=== PATIENT | female | born 1960 | race Caucasian/White ===

== ENCOUNTER 2020-08-15 09:19 | Inpatient (IN) ==
[2020-08-15] MEDS ORDERED: DEXTROSE 50% 50 ML SYRINGE IV ONE ×2 (09:52→10:07)
[2020-08-15] MEDS ORDERED: GLUCAGON FOR INJ 1 MG VIAL ONE (10:06)
[2020-08-15] MEDS ORDERED: GLUCAGON FOR INJ 1 MG VIAL SQ STA (10:07)
--- NOTE | 2020-08-15 10:10 | Emergency Department Note ---
History of Present Illness General Chief complaint: Hypoglycemia Stated complaint: AMS, HYPOGLYCEMIA, COVID + Time Seen by Provider: 08/15/20 09:54 Source: patient and RN notes reviewed Mode of arrival: EMS Limitations: altered mental status History of Present Illness Provider complaint: Hyperglycemia Onset (ago): hour(s) less than 1 Quality: + other (Blood sugar 40) Relieved By: + other (Glucose) Associated symptoms: + other (Back pain); no chest pain, no cough, no fever/chills, no headaches, no nausea/vomiting and no shortness of breath This is a 60-year-old female who presents with altered mental status from the rehabilitation hospital. History is very limited due to the patient's altered mental status. I did obtain history from the charge nurse as well as the nurse caring for her who spoke to EMS. Apparently the patient is at the rehab hospital because she suffered a stroke last month. She also had sepsis from her wound in her right leg. The staff at [facility] told the charge nurse that the patient appeared to be more altered than usual and appeared to be dying. They called EMS who found her to have a glucose of 40. They did administer D10 IV and the patient appears to be waking up and becoming more alert. She does still appear confused and answers some questions. She states her back hurts but is unable to describe for her how long and wear. She does deny headache, chest pain, shortness of breath, abdominal pain, fever or vomiting. She does have a known diagnosis of COVID-19. Home Medications Medication Instructions Recorded Confirmed Type ascorbic acid (vitamin C) 500 mg 500 mg PO BID 08/03/20 08/15/20 History tablet aspirin 81 mg chewable tablet 81 mg PO DAILY 08/03/20 08/15/20 History atorvastatin 40 mg tablet 40 mg PO QPM 08/03/20 08/15/20 History bisacodyl 10 mg rectal suppository 10 mg NJ DAILY PRN 08/03/20 08/15/20 History chlorpromazine 25 mg tablet 100 mg PO Q6H PRN tab 08/03/20 08/15/20 History cholecalciferol (vitamin D3) 50 50 mcg PO DAILY 08/03/20 08/15/20 History mcg (2,000 unit) capsule docusate sodium 100 mg capsule 100 mg PO BID 08/03/20 08/15/20 History ferrous fumarate 325 mg (106 mg 325 mg PO BID 08/03/20 08/15/20 History iron) tablet fluticasone fur. 200 mcg-umeclid 1 inh INHALATION DAILY 08/03/20 08/15/20 History 62.5 mcg-vilant 25 mcg inhalat.powder furosemide 40 mg tablet 40 mg PO BID 08/03/20 08/15/20 History glucagon (human recombinant) 1 1 mg SUBCUT Q20M PRN 08/03/20 08/15/20 History mg/mL solution for injection insulin aspart U-100 100 unit/mL 15 unit SUBCUT DAILY ml 08/03/20 08/15/20 History subcutaneous cartridge insulin aspart U-100 100 unit/mL 20 unit SUBCUT BID 08/03/20 08/15/20 History subcutaneous cartridge ipratropium 20 mcg-albuterol 100 1 puff INHALATION QID 08/03/20 08/15/20 History mcg/actuation mist for inhalation lidocaine 5 % topical patch 1 patch TOPICAL DAILY 08/03/20 08/15/20 History magnesium hydroxide 400 mg/5 mL 5 ml PO DAILY PRN 08/03/20 08/15/20 History oral suspension melatonin 3 mg capsule 3 mg PO HS PRN 08/03/20 08/15/20 History metoprolol succinate 25 mg 12.5 mg PO Q12H tab 08/03/20 08/15/20 History tablet,extended release 24 hr multivitamin 1 tab PO DAILY 08/03/20 08/15/20 History nicotine 7 mg/24 hr daily 1 patch TRANSDERMAL Q24H 08/03/20 08/15/20 History transdermal patch oxycodone 5 mg tablet 5 mg PO Q4H PRN 08/03/20 08/15/20 History polyethylene glycol 3350 17 17 g PO DAILY 08/03/20 08/15/20 History gram/dose oral powder sodium bicarbonate 650 mg tablet 650 mg PO BID 08/03/20 08/15/20 History tizanidine 2 mg capsule 2 mg PO Q8H PRN 08/03/20 08/15/20 History warfarin 3 mg tablet 3 mg PO DAILY 08/03/20 08/15/20 History zinc sulfate 220 mg PO DAILY 08/03/20 08/15/20 History ziprasidone HCl 20 mg capsule 20 mg PO BID 08/03/20 08/15/20 History Allergies Allergy/AdvReac Type Severity Reaction Status Date / Time No Known Allergies Allergy Verified 08/15/20 10:22 Past Med/Surg History Medical History (Updated 08/15/20 @ 15:50 by Jason Lucero MD) Amputation of left great toe Atrial fibrillation and flutter Bipolar disorder delivery delivered CKD (chronic kidney disease), stage III CVA (cerebral vascular accident) Heart failure IDDM (insulin dependent diabetes mellitus) Insomnia Mitral valve regurgitation Pulmonary hypertension Stroke Surgical History Hx of right BKA Social History Smoking Status: Current every day smoker Tobacco Type: Cigarettes packs per day: 2; Years Smoked: 40; Second Hand Exposure: No; Hx Alcohol Use: No Hx Substance Use: Yes (coke and crack) Non-Prescribed Medications: Crack / Cocaine Last Used Substance Other:: 17 years ago Preferred Language: Kazakh Beliefs That Will Affect Care: None marital status: Single Current Living Situation: Alone current occupational status: unemployed and disabled How many Children do You have: 2 Feels Safe at Home: Yes caffeine: Yes Dental Care, Regularly: No Review of Systems See HPI for pertinent positives & negatives. Unobtainable due to cognitive status Physical Exam Vital Signs Vital Signs - 24 hr 08/15/20 09:27 08/15/20 09:28 08/15/20 09:30 Temperature Temperature Source Pulse Rate 90 0 L 0 L Pulse Rate [Apical] Pulse Rate from SpO2 Sensor 105 H 104 H 103 H Respiratory Rate 22 17 19 Respiratory Effort / Characteristics Blood Pressure 165/131 H 171/124 H Blood Pressure [Left Arm] Blood Pressure Mean 155 138 Blood Pressure Mean [Left Arm] Pulse Oximetry 100 100 Oxygen Delivery Method Oxygen Flow Rate Sepsis Recent Fever Within 48 Hours Sepsis New/Unexplained Change in Mental Status Sepsis Action Taken by Nursing 08/15/20 09:31 08/15/20 09:40 08/15/20 09:50 Temperature Temperature Source Pulse Rate 0 L 0 L 0 L Pulse Rate [Apical] Pulse Rate from SpO2 Sensor 103 H 101 H 102 H Respiratory Rate 18 17 20 Respiratory Effort / Characteristics Blood Pressure Blood Pressure [Left Arm] Blood Pressure Mean Blood Pressure Mean [Left Arm] Pulse Oximetry 100 100 100 Oxygen Delivery Method Oxygen Flow Rate Sepsis Recent Fever Within 48 Hours Sepsis New/Unexplained Change in Mental Status Sepsis Action Taken by Nursing 08/15/20 10:00 08/15/20 10:01 08/15/20 10:10 Temperature Temperature Source Pulse Rate 0 L 0 L 0 L Pulse Rate [Apical] Pulse Rate from SpO2 Sensor 100 H 100 H 97 H Respiratory Rate 20 21 25 H Respiratory Effort / Characteristics Blood Pressure 159/114 H Blood Pressure [Left Arm] Blood Pressure Mean 134 Blood Pressure Mean [Left Arm] Pulse Oximetry 100 100 100 Oxygen Delivery Method Oxygen Flow Rate Sepsis Recent Fever Within 48 Hours Sepsis New/Unexplained Change in Mental Status Sepsis Action Taken by Nursing 08/15/20 10:15 08/15/20 10:20 08/15/20 10:26 Temperature 36.7 C Temperature Source Oral Pulse Rate 99 H 0 L Pulse Rate [Apical] Pulse Rate from SpO2 Sensor 96 H Respiratory Rate 22 14 Respiratory Effort / Characteristics Short of Breath Blood Pressure 159/114 H Blood Pressure [Left Arm] Blood Pressure Mean 129 Blood Pressure Mean [Left Arm] Pulse Oximetry 92 99 Oxygen Delivery Method Room Air Oxygen Flow Rate Sepsis Recent Fever Within 48 Hours No Sepsis New/Unexplained Change in Mental Status N/A Sepsis Action Taken by Nursing No Action Required 08/15/20 10:30 08/15/20 10:40 08/15/20 10:50 Temperature Temperature Source Pulse Rate 0 L 0 L 0 L Pulse Rate [Apical] 94 H Pulse Rate from SpO2 Sensor 95 H 95 H 94 H Respiratory Rate 14 13 13 Respiratory Effort / Characteristics Blood Pressure 176/121 H Blood Pressure [Left Arm] 176/121 H Blood Pressure Mean 131 Blood Pressure Mean [Left Arm] 139 Pulse Oximetry 99 100 100 Oxygen Delivery Method Nasal Cannula Oxygen Flow Rate 4 Sepsis Recent Fever Within 48 Hours Sepsis New/Unexplained Change in Mental Status Sepsis Action Taken by Nursing 08/15/20 10:51 08/15/20 11:00 08/15/20 11:01 Temperature Temperature Source Pulse Rate 0 L 0 L 0 L Pulse Rate [Apical] Pulse Rate from SpO2 Sensor 94 H 94 H 94 H Respiratory Rate 17 17 16 Respiratory Effort / Characteristics Blood Pressure 173/114 H Blood Pressure [Left Arm] Blood Pressure Mean 119 Blood Pressure Mean [Left Arm] Pulse Oximetry 100 100 100 Oxygen Delivery Method Oxygen Flow Rate Sepsis Recent Fever Within 48 Hours Sepsis New/Unexplained Change in Mental Status Sepsis Action Taken by Nursing 08/15/20 11:10 08/15/20 11:20 08/15/20 11:30 Temperature Temperature Source Pulse Rate 0 L 0 L 0 L Pulse Rate [Apical] Pulse Rate from SpO2 Sensor 95 H 95 H 95 H Respiratory Rate 16 17 21 Respiratory Effort / Characteristics Blood Pressure 188/119 H Blood Pressure [Left Arm] Blood Pressure Mean 130 Blood Pressure Mean [Left Arm] Pulse Oximetry 100 100 100 Oxygen Delivery Method Oxygen Flow Rate Sepsis Recent Fever Within 48 Hours Sepsis New/Unexplained Change in Mental Status Sepsis Action Taken by Nursing 08/15/20 11:31 08/15/20 11:40 08/15/20 11:50 Temperature Temperature Source Pulse Rate 0 L 0 L 0 L Pulse Rate [Apical] Pulse Rate from SpO2 Sensor 96 H 97 H 101 H Respiratory Rate 18 20 13 Respiratory Effort / Characteristics Blood Pressure Blood Pressure [Left Arm] Blood Pressure Mean Blood Pressure Mean [Left Arm] Pulse Oximetry 100 100 96 Oxygen Delivery Method Oxygen Flow Rate Sepsis Recent Fever Within 48 Hours Sepsis New/Unexplained Change in Mental Status Sepsis Action Taken by Nursing 08/15/20 12:00 08/15/20 12:01 08/15/20 12:10 Temperature Temperature Source Pulse Rate Pulse Rate [Apical] Pulse Rate from SpO2 Sensor 105 H 106 H 102 H Respiratory Rate Respiratory Effort / Characteristics Blood Pressure 190/134 H Blood Pressure [Left Arm] Blood Pressure Mean 161 Blood Pressure Mean [Left Arm] Pulse Oximetry 98 98 98 Oxygen Delivery Method Oxygen Flow Rate Sepsis Recent Fever Within 48 Hours Sepsis New/Unexplained Change in Mental Status Sepsis Action Taken by Nursing 08/15/20 12:20 08/15/20 12:30 08/15/20 12:31 Temperature Temperature Source Pulse Rate 0 L 0 L 0 L Pulse Rate [Apical] Pulse Rate from SpO2 Sensor 104 H 100 H 100 H Respiratory Rate Respiratory Effort / Characteristics Blood Pressure 166/120 H Blood Pressure [Left Arm] Blood Pressure Mean 133 Blood Pressure Mean [Left Arm] Pulse Oximetry 92 90 90 Oxygen Delivery Method Oxygen Flow Rate Sepsis Recent Fever Within 48 Hours Sepsis New/Unexplained Change in Mental Status Sepsis Action Taken by Nursing 08/15/20 12:40 08/15/20 12:50 08/15/20 13:00 Temperature Temperature Source Pulse Rate 87 93 H 0 L Pulse Rate [Apical] Pulse Rate from SpO2 Sensor 97 H 93 H 92 H Respiratory Rate 15 16 Respiratory Effort / Characteristics Blood Pressure 175/124 H Blood Pressure [Left Arm] Blood Pressure Mean 129 Blood Pressure Mean [Left Arm] Pulse Oximetry 88 L 97 99 Oxygen Delivery Method Room Air Nasal Cannula Oxygen Flow Rate 4 Sepsis Recent Fever Within 48 Hours Sepsis New/Unexplained Change in Mental Status Sepsis Action Taken by Nursing 08/15/20 13:01 08/15/20 13:10 08/15/20 13:20 Temperature Temperature Source Pulse Rate 0 L 0 L 0 L Pulse Rate [Apical] Pulse Rate from SpO2 Sensor 92 H 92 H 92 H Respiratory Rate 14 14 14 Respiratory Effort / Characteristics Blood Pressure Blood Pressure [Left Arm] Blood Pressure Mean Blood Pressure Mean [Left Arm] Pulse Oximetry 98 98 100 Oxygen Delivery Method Oxygen Flow Rate Sepsis Recent Fever Within 48 Hours Sepsis New/Unexplained Change in Mental Status Sepsis Action Taken by Nursing 08/15/20 13:30 08/15/20 13:31 08/15/20 13:40 Temperature Temperature Source Pulse Rate 0 L 0 L 66 Pulse Rate [Apical] Pulse Rate from SpO2 Sensor 92 H 92 H 66 Respiratory Rate 15 17 14 Respiratory Effort / Characteristics Blood Pressure 165/126 H Blood Pressure [Left Arm] Blood Pressure Mean 139 Blood Pressure Mean [Left Arm] Pulse Oximetry 99 99 99 Oxygen Delivery Method Oxygen Flow Rate Sepsis Recent Fever Within 48 Hours Sepsis New/Unexplained Change in Mental Status Sepsis Action Taken by Nursing 08/15/20 13:50 08/15/20 14:00 08/15/20 14:01 Temperature Temperature Source Pulse Rate 69 68 68 Pulse Rate [Apical] Pulse Rate from SpO2 Sensor 69 69 68 Respiratory Rate 18 14 13 Respiratory Effort / Characteristics Blood Pressure 178/110 H Blood Pressure [Left Arm] Blood Pressure Mean 128 Blood Pressure Mean [Left Arm] Pulse Oximetry 100 100 100 Oxygen Delivery Method Oxygen Flow Rate Sepsis Recent Fever Within 48 Hours Sepsis New/Unexplained Change in Mental Status Sepsis Action Taken by Nursing 08/15/20 14:10 08/15/20 14:20 Temperature Temperature Source Pulse Rate 69 Pulse Rate [Apical] Pulse Rate from SpO2 Sensor 69 70 Respiratory Rate 13 17 Respiratory Effort / Characteristics Blood Pressure Blood Pressure [Left Arm] Blood Pressure Mean Blood Pressure Mean [Left Arm] Pulse Oximetry 100 100 Oxygen Delivery Method Oxygen Flow Rate Sepsis Recent Fever Within 48 Hours Sepsis New/Unexplained Change in Mental Status Sepsis Action Taken by Nursing The physical exam is limited due to the patient's condition. Constitutional: Vital signs reviewed. Eyes: Pupils are equal round reactive to light. Conjunctiva are noninjected. HENT: Normocephalic atraumatic. Respiratory: Clear to auscultation bilaterally. Breath sounds are equal bilaterally. Cardiovascular: Regular rate and rhythm. No murmurs, rubs or gallops. GI: Soft, nondistended and nontender. Bowel sounds are present. Musculoskeletal: BKA right leg without increased warmth or erythema. No edema. There is a pressure ulcer laterally. Integumentary: No cyanosis. Neurological: The patient is somnolent but answers simple questions. Psychiatric: Unable to assess. Course Administered Medications Vancomycin HCl 1,750 mg/ (Sodium Chloride) 535 mls @ 200 mls/hr IV NOW ONE Stop: 08/15/20 17:10 Last Admin: 08/15/20 15:14 Dose: 200 mls/hr Documented by: [id number] Discontinued Medications Dexamethasone (Dexamethasone Sod Inj 10 Mg/Ml Vial) 6 mg IV NOW ONE Stop: 08/15/20 12:54 Last Admin: 08/15/20 14:15 Dose: 6 mg Documented by: [id number] Dextrose (Dextrose 50% 50 Ml Syringe) Confirm Administered Dose 50 ml IV .STK- MED ONE Stop: 08/15/20 09:53 Last Admin: 08/15/20 10:39 Dose: 25 ml Documented by: [id number] Dextrose (Dextrose 50% 50 Ml Syringe) 50 ml IV NOW ONE Stop: 08/15/20 10:08 Last Admin: 08/15/20 12:44 Dose: Not Given Documented by: [id number] Glucagon (Glucagon For Inj 1 Mg Vial) Confirm Administered Dose 1 mg .ROUTE .STK-MED ONE Stop: 08/15/20 10:07 Last Admin: 08/15/20 13:17 Dose: Not Given Documented by: [id number] Glucagon (Glucagon For Inj 1 Mg Vial) 1 mg SQ NOW STA Stop: 08/15/20 10:08 Last Admin: 08/15/20 13:17 Dose: Not Given Documented by: [id number] Cefepime HCl (Maxipime) 2,000 mg in 20 mls @ 5 mls/min IV NOW STA; Protocol Stop: 08/15/20 13:11 Last Admin: 08/15/20 14:18 Dose: 5 mls/min Documented by: [id number] Critical Care Time Critical Care Time: Yes Total Critical Care Time: 45 I have personally spent approximately 45 minutes of critical care time in the direct management of this patient. This includes bedside care, interpretation of diagnostic studies, and testing, discussion with consultants, patient, and family members, and other required patient management activities. These minutes are in excess of all separately billable procedures. Medical Decision Making Differential Diagnosis Metabolic derangement, hypoglycemia, infection, pneumonia, UTI Medical Records Attestation: I reviewed the patient's medical records. I did perform a limited focused review of portions of the patient's old chart on the electronic medical record. The patient was admitted to [facility] for a left frontal stroke and sepsis secondary to infection of the right BKA stump. She was seen by Dr. Biggs of the wound care clinic August 11 for her stage II ulcer on her stump. Home Medications Current Medication List: was personally reviewed by me Laboratory Data Attestation: I reviewed the patient's lab results. Result diagrams: 08/15/20 09:47 08/15/20 09:47 Lab Results 08/15/20 08/15/20 08/15/20 Range/Units 09:40 09:47 09:47 WBC 9.10 (4.8-10.8) K/uL RBC 3.85 L (4.2-5.4) M/uL Hgb 9.4 L (12.0-16.0) g/dL Hct 30.0 L (37-47) % MCV 77.9 L (80-100) fL MCH 24.4 L (25-34) pg MCHC 31.3 L (32-36) g/dL RDW Std Deviation 52.6 H (36.4-46.3) fL RDW Coeff of Esa 19.1 H (11.5-14.5) % Plt Count 311 (130-400) K/uL MPV 8.8 (7.4-10.4) fL Immature Gran % (Auto) 0.4 % Neut % (Auto) 90.1 % Lymph % (Auto) 4.1 % Hamilton % (Auto) 5.1 % Eos % (Auto) 0.2 % Baso % (Auto) 0.1 % Neut # (Auto) 8.20 H (1.4-6.5) K/uL Lymph # (Auto) 0.37 L (1.2-3.4) K/uL Hamilton # (Auto) 0.46 (0.11-0.59) K/uL Eos # (Auto) 0.02 (0-0.5) K/uL Baso # (Auto) 0.01 (0-0.2) K/uL Immature Gran # (Auto) 0.04 H (0.00-0.02) K/uL Absolute Nucleated RBC 0.02 H (0-0) K/uL Nucleated RBC % (auto) 0.2 % PT (9.0-12.0) Seconds INR (0.9-1.1) APTT (21.0-31.0) Seconds PTT Ratio D-Dimer (0-500) ug/L FEU Sodium 121 L (136-145) mmol/L Potassium 3.7 (3.5-5.1) mmol/L Chloride 91 L (98-107) mmol/L Carbon Dioxide 23 (21-32) mmol/L Anion Gap 7.0 (3-11) BUN 72 H (7-18) mg/dl Creatinine 2.34 H (0.6-1.2) mg/dl Est Cr Clr Drug Dosing Not Reportable Est GFR ( Amer) 25.7 Est GFR (Non-Af Amer) 22.2 BUN/Creatinine Ratio 30.9 H (10-20) Glucose 48 L* (70-99) mg/dl POC Glucose (70-99) mg/dl Lactate (0.4-2.0) mmol/L Calcium 7.8 L (8.5-10.1) mg/dl Magnesium 3.0 H (1.8-2.4) mg/dl Iron (35-150) mcg/dl Transferrin (200-360) mg/dl Transferrin % Sat (15-50) % Ferritin (8-388) ng/ml Total Bilirubin 0.4 (0.2-1) mg/dl AST 38 H (15-37) U/L ALT 44 (12-78) U/L Alkaline Phosphatase 210 H (45-117) U/L Lactate Dehydrogenase (84-246) U/L Total Creatine Kinase (26-192) U/L Troponin I < 0.015 (0-0.045) ng/ml C-Reactive Protein (0-0.29) mg/dl Total Protein 8.3 H (6.4-8.2) gm/dl Albumin 2.8 L (3.4-5.0) gm/dl Globulin 5.5 H (2.5-4.0) gm/dl Albumin/Globulin Ratio 0.5 L (0.9-2) Procalcitonin (0-0.5) ng/ml Urine Color Yellow Urine Appearance Cloudy A (Clear) Urine pH 6.5 (4.5-7.5) Ur Specific Limestone 1.013 (1.000-1.030) Urine Protein 3+ H (Negative) Urine Glucose (UA) Negative (Negative) Urine Ketones Negative (Negative) Urine Blood 2+ H (Negative) Urine Nitrite Negative (Negative) Urine Bilirubin Negative (Negative) Urine Urobilinogen Negative (Negative) Ur Leukocyte Esterase 2+ H (Negative) Urine WBC (Auto) >30 H (0-5) /hpf Urine RBC (Auto) 10-30 H (0-4) /hpf U Hyaline Cast (Auto) 1-5 (0-5) /lpf U Epithel Cells (Auto) 0-5 (0-5) /lpf Urine Bacteria (Auto) 2+ H (Negative) COVID-19 Eval Order Blood Type Antibody Screen 08/15/20 08/15/20 08/15/20 Range/Units 09:47 09:47 09:47 WBC (4.8-10.8) K/uL RBC (4.2-5.4) M/uL Hgb (12.0-16.0) g/dL Hct (37-47) % MCV (80-100) fL MCH (25-34) pg MCHC (32-36) g/dL RDW Std Deviation (36.4-46.3) fL RDW Coeff of Esa (11.5-14.5) % Plt Count (130-400) K/uL MPV (7.4-10.4) fL Immature Gran % (Auto) % Neut % (Auto) % Lymph % (Auto) % Hamilton % (Auto) % Eos % (Auto) % Baso % (Auto) % Neut # (Auto) (1.4-6.5) K/uL Lymph # (Auto) (1.2-3.4) K/uL Hamilton # (Auto) (0.11-0.59) K/uL Eos # (Auto) (0-0.5) K/uL Baso # (Auto) (0-0.2) K/uL Immature Gran # (Auto) (0.00-0.02) K/uL Absolute Nucleated RBC (0-0) K/uL Nucleated RBC % (auto) % PT 31.0 H (9.0-12.0) Seconds INR 3.1 H (0.9-1.1) APTT 49.4 H* (21.0-31.0) Seconds PTT Ratio 1.8 D-Dimer 650 H* (0-500) ug/L FEU Sodium (136-145) mmol/L Potassium (3.5-5.1) mmol/L Chloride (98-107) mmol/L Carbon Dioxide (21-32) mmol/L Anion Gap (3-11) BUN (7-18) mg/dl Creatinine (0.6-1.2) mg/dl Est Cr Clr Drug Dosing Est GFR ( Amer) Est GFR (Non-Af Amer) BUN/Creatinine Ratio (10-20) Glucose (70-99) mg/dl POC Glucose (70-99) mg/dl Lactate 0.7 (0.4-2.0) mmol/L Calcium (8.5-10.1) mg/dl Magnesium (1.8-2.4) mg/dl Iron (35-150) mcg/dl Transferrin (200-360) mg/dl Transferrin % Sat (15-50) % Ferritin (8-388) ng/ml Total Bilirubin (0.2-1) mg/dl AST (15-37) U/L ALT (12-78) U/L Alkaline Phosphatase (45-117) U/L Lactate Dehydrogenase (84-246) U/L Total Creatine Kinase (26-192) U/L Troponin I (0-0.045) ng/ml C-Reactive Protein (0-0.29) mg/dl Total Protein (6.4-8.2) gm/dl Albumin (3.4-5.0) gm/dl Globulin (2.5-4.0) gm/dl Albumin/Globulin Ratio (0.9-2) Procalcitonin (0-0.5) ng/ml Urine Color Urine Appearance (Clear) Urine pH (4.5-7.5) Ur Specific Limestone (1.000-1.030) Urine Protein (Negative) Urine Glucose (UA) (Negative) Urine Ketones (Negative) Urine Blood (Negative) Urine Nitrite (Negative) Urine Bilirubin (Negative) Urine Urobilinogen (Negative) Ur Leukocyte Esterase (Negative) Urine WBC (Auto) (0-5) /hpf Urine RBC (Auto) (0-4) /hpf U Hyaline Cast (Auto) (0-5) /lpf U Epithel Cells (Auto) (0-5) /lpf Urine Bacteria (Auto) (Negative) COVID-19 Eval Order Blood Type Antibody Screen 08/15/20 08/15/20 08/15/20 Range/Units 09:47 09:47 09:47 WBC (4.8-10.8) K/uL RBC (4.2-5.4) M/uL Hgb (12.0-16.0) g/dL Hct (37-47) % MCV (80-100) fL MCH (25-34) pg MCHC (32-36) g/dL RDW Std Deviation (36.4-46.3) fL RDW Coeff of Esa (11.5-14.5) % Plt Count (130-400) K/uL MPV (7.4-10.4) fL Immature Gran % (Auto) % Neut % (Auto) % Lymph % (Auto) % Hamilton % (Auto) % Eos % (Auto) % Baso % (Auto) % Neut # (Auto) (1.4-6.5) K/uL Lymph # (Auto) (1.2-3.4) K/uL Hamilton # (Auto) (0.11-0.59) K/uL Eos # (Auto) (0-0.5) K/uL Baso # (Auto) (0-0.2) K/uL Immature Gran # (Auto) (0.00-0.02) K/uL Absolute Nucleated RBC (0-0) K/uL Nucleated RBC % (auto) % PT (9.0-12.0) Seconds INR (0.9-1.1) APTT (21.0-31.0) Seconds PTT Ratio D-Dimer (0-500) ug/L FEU Sodium (136-145) mmol/L Potassium (3.5-5.1) mmol/L Chloride (98-107) mmol/L Carbon Dioxide (21-32) mmol/L Anion Gap (3-11) BUN (7-18) mg/dl Creatinine (0.6-1.2) mg/dl Est Cr Clr Drug Dosing Est GFR ( Amer) Est GFR (Non-Af Amer) BUN/Creatinine Ratio (10-20) Glucose (70-99) mg/dl POC Glucose (70-99) mg/dl Lactate (0.4-2.0) mmol/L Calcium (8.5-10.1) mg/dl Magnesium (1.8-2.4) mg/dl Iron 18 L (35-150) mcg/dl Transferrin 328 (200-360) mg/dl Transferrin % Sat 4 L (15-50) % Ferritin 147.2 (8-388) ng/ml Total Bilirubin (0.2-1) mg/dl AST (15-37) U/L ALT (12-78) U/L Alkaline Phosphatase (45-117) U/L Lactate Dehydrogenase 315 H (84-246) U/L Total Creatine Kinase 95 (26-192) U/L Troponin I (0-0.045) ng/ml C-Reactive Protein 1.82 H (0-0.29) mg/dl Total Protein (6.4-8.2) gm/dl Albumin (3.4-5.0) gm/dl Globulin (2.5-4.0) gm/dl Albumin/Globulin Ratio (0.9-2) Procalcitonin 0.06 (0-0.5) ng/ml Urine Color Urine Appearance (Clear) Urine pH (4.5-7.5) Ur Specific Limestone (1.000-1.030) Urine Protein (Negative) Urine Glucose (UA) (Negative) Urine Ketones (Negative) Urine Blood (Negative) Urine Nitrite (Negative) Urine Bilirubin (Negative) Urine Urobilinogen (Negative) Ur Leukocyte Esterase (Negative) Urine WBC (Auto) (0-5) /hpf Urine RBC (Auto) (0-4) /hpf U Hyaline Cast (Auto) (0-5) /lpf U Epithel Cells (Auto) (0-5) /lpf Urine Bacteria (Auto) (Negative) COVID-19 Eval Order Blood Type Antibody Screen 08/15/20 08/15/20 08/15/20 Range/Units 09:50 10:07 12:36 WBC (4.8-10.8) K/uL RBC (4.2-5.4) M/uL Hgb (12.0-16.0) g/dL Hct (37-47) % MCV (80-100) fL MCH (25-34) pg MCHC (32-36) g/dL RDW Std Deviation (36.4-46.3) fL RDW Coeff of Esa (11.5-14.5) % Plt Count (130-400) K/uL MPV (7.4-10.4) fL Immature Gran % (Auto) % Neut % (Auto) % Lymph % (Auto) % Hamilton % (Auto) % Eos % (Auto) % Baso % (Auto) % Neut # (Auto) (1.4-6.5) K/uL Lymph # (Auto) (1.2-3.4) K/uL Hamilton # (Auto) (0.11-0.59) K/uL Eos # (Auto) (0-0.5) K/uL Baso # (Auto) (0-0.2) K/uL Immature Gran # (Auto) (0.00-0.02) K/uL Absolute Nucleated RBC (0-0) K/uL Nucleated RBC % (auto) % PT (9.0-12.0) Seconds INR (0.9-1.1) APTT (21.0-31.0) Seconds PTT Ratio D-Dimer (0-500) ug/L FEU Sodium (136-145) mmol/L Potassium (3.5-5.1) mmol/L Chloride (98-107) mmol/L Carbon Dioxide (21-32) mmol/L Anion Gap (3-11) BUN (7-18) mg/dl Creatinine (0.6-1.2) mg/dl Est Cr Clr Drug Dosing Est GFR ( Amer) Est GFR (Non-Af Amer) BUN/Creatinine Ratio (10-20) Glucose (70-99) mg/dl POC Glucose 65 L* 137 H 62 L* (70-99) mg/dl Lactate (0.4-2.0) mmol/L Calcium (8.5-10.1) mg/dl Magnesium (1.8-2.4) mg/dl Iron (35-150) mcg/dl Transferrin (200-360) mg/dl Transferrin % Sat (15-50) % Ferritin (8-388) ng/ml Total Bilirubin (0.2-1) mg/dl AST (15-37) U/L ALT (12-78) U/L Alkaline Phosphatase (45-117) U/L Lactate Dehydrogenase (84-246) U/L Total Creatine Kinase (26-192) U/L Troponin I (0-0.045) ng/ml C-Reactive Protein (0-0.29) mg/dl Total Protein (6.4-8.2) gm/dl Albumin (3.4-5.0) gm/dl Globulin (2.5-4.0) gm/dl Albumin/Globulin Ratio (0.9-2) Procalcitonin (0-0.5) ng/ml Urine Color Urine Appearance (Clear) Urine pH (4.5-7.5) Ur Specific Limestone (1.000-1.030) Urine Protein (Negative) Urine Glucose (UA) (Negative) Urine Ketones (Negative) Urine Blood (Negative) Urine Nitrite (Negative) Urine Bilirubin (Negative) Urine Urobilinogen (Negative) Ur Leukocyte Esterase (Negative) Urine WBC (Auto) (0-5) /hpf Urine RBC (Auto) (0-4) /hpf U Hyaline Cast (Auto) (0-5) /lpf U Epithel Cells (Auto) (0-5) /lpf Urine Bacteria (Auto) (Negative) COVID-19 Eval Order Blood Type Antibody Screen 08/15/20 08/15/20 08/15/20 Range/Units 12:38 13:49 14:21 WBC (4.8-10.8) K/uL RBC (4.2-5.4) M/uL Hgb (12.0-16.0) g/dL Hct (37-47) % MCV (80-100) fL MCH (25-34) pg MCHC (32-36) g/dL RDW Std Deviation (36.4-46.3) fL RDW Coeff of Esa (11.5-14.5) % Plt Count (130-400) K/uL MPV (7.4-10.4) fL Immature Gran % (Auto) % Neut % (Auto) % Lymph % (Auto) % Hamilton % (Auto) % Eos % (Auto) % Baso % (Auto) % Neut # (Auto) (1.4-6.5) K/uL Lymph # (Auto) (1.2-3.4) K/uL Hamilton # (Auto) (0.11-0.59) K/uL Eos # (Auto) (0-0.5) K/uL Baso # (Auto) (0-0.2) K/uL Immature Gran # (Auto) (0.00-0.02) K/uL Absolute Nucleated RBC (0-0) K/uL Nucleated RBC % (auto) % PT (9.0-12.0) Seconds INR (0.9-1.1) APTT (21.0-31.0) Seconds PTT Ratio D-Dimer (0-500) ug/L FEU Sodium (136-145) mmol/L Potassium (3.5-5.1) mmol/L Chloride (98-107) mmol/L Carbon Dioxide (21-32) mmol/L Anion Gap (3-11) BUN (7-18) mg/dl Creatinine (0.6-1.2) mg/dl Est Cr Clr Drug Dosing Est GFR ( Amer) Est GFR (Non-Af Amer) BUN/Creatinine Ratio (10-20) Glucose (70-99) mg/dl POC Glucose 76 100 H (70-99) mg/dl Lactate (0.4-2.0) mmol/L Calcium (8.5-10.1) mg/dl Magnesium (1.8-2.4) mg/dl Iron (35-150) mcg/dl Transferrin (200-360) mg/dl Transferrin % Sat (15-50) % Ferritin (8-388) ng/ml Total Bilirubin (0.2-1) mg/dl AST (15-37) U/L ALT (12-78) U/L Alkaline Phosphatase (45-117) U/L Lactate Dehydrogenase (84-246) U/L Total Creatine Kinase (26-192) U/L Troponin I (0-0.045) ng/ml C-Reactive Protein (0-0.29) mg/dl Total Protein (6.4-8.2) gm/dl Albumin (3.4-5.0) gm/dl Globulin (2.5-4.0) gm/dl Albumin/Globulin Ratio (0.9-2) Procalcitonin (0-0.5) ng/ml Urine Color Urine Appearance (Clear) Urine pH (4.5-7.5) Ur Specific Limestone (1.000-1.030) Urine Protein (Negative) Urine Glucose (UA) (Negative) Urine Ketones (Negative) Urine Blood (Negative) Urine Nitrite (Negative) Urine Bilirubin (Negative) Urine Urobilinogen (Negative) Ur Leukocyte Esterase (Negative) Urine WBC (Auto) (0-5) /hpf Urine RBC (Auto) (0-4) /hpf U Hyaline Cast (Auto) (0-5) /lpf U Epithel Cells (Auto) (0-5) /lpf Urine Bacteria (Auto) (Negative) COVID-19 Eval Order Blood Type B Positive Antibody Screen POSITIVE A 08/15/20 08/15/20 Range/Units 15:18 15:20 WBC (4.8-10.8) K/uL RBC (4.2-5.4) M/uL Hgb (12.0-16.0) g/dL Hct (37-47) % MCV (80-100) fL MCH (25-34) pg MCHC (32-36) g/dL RDW Std Deviation (36.4-46.3) fL RDW Coeff of Esa (11.5-14.5) % Plt Count (130-400) K/uL MPV (7.4-10.4) fL Immature Gran % (Auto) % Neut % (Auto) % Lymph % (Auto) % Hamilton % (Auto) % Eos % (Auto) % Baso % (Auto) % Neut # (Auto) (1.4-6.5) K/uL Lymph # (Auto) (1.2-3.4) K/uL Hamilton # (Auto) (0.11-0.59) K/uL Eos # (Auto) (0-0.5) K/uL Baso # (Auto) (0-0.2) K/uL Immature Gran # (Auto) (0.00-0.02) K/uL Absolute Nucleated RBC (0-0) K/uL Nucleated RBC % (auto) % PT (9.0-12.0) Seconds INR (0.9-1.1) APTT (21.0-31.0) Seconds PTT Ratio D-Dimer (0-500) ug/L FEU Sodium (136-145) mmol/L Potassium (3.5-5.1) mmol/L Chloride (98-107) mmol/L Carbon Dioxide (21-32) mmol/L Anion Gap (3-11) BUN (7-18) mg/dl Creatinine (0.6-1.2) mg/dl Est Cr Clr Drug Dosing Est GFR ( Amer) Est GFR (Non-Af Amer) BUN/Creatinine Ratio (10-20) Glucose (70-99) mg/dl POC Glucose 111 H (70-99) mg/dl Lactate (0.4-2.0) mmol/L Calcium (8.5-10.1) mg/dl Magnesium (1.8-2.4) mg/dl Iron (35-150) mcg/dl Transferrin (200-360) mg/dl Transferrin % Sat (15-50) % Ferritin (8-388) ng/ml Total Bilirubin (0.2-1) mg/dl AST (15-37) U/L ALT (12-78) U/L Alkaline Phosphatase (45-117) U/L Lactate Dehydrogenase (84-246) U/L Total Creatine Kinase (26-192) U/L Troponin I (0-0.045) ng/ml C-Reactive Protein (0-0.29) mg/dl Total Protein (6.4-8.2) gm/dl Albumin (3.4-5.0) gm/dl Globulin (2.5-4.0) gm/dl Albumin/Globulin Ratio (0.9-2) Procalcitonin (0-0.5) ng/ml Urine Color Urine Appearance (Clear) Urine pH (4.5-7.5) Ur Specific Limestone (1.000-1.030) Urine Protein (Negative) Urine Glucose (UA) (Negative) Urine Ketones (Negative) Urine Blood (Negative) Urine Nitrite (Negative) Urine Bilirubin (Negative) Urine Urobilinogen (Negative) Ur Leukocyte Esterase (Negative) Urine WBC (Auto) (0-5) /hpf Urine RBC (Auto) (0-4) /hpf U Hyaline Cast (Auto) (0-5) /lpf U Epithel Cells (Auto) (0-5) /lpf Urine Bacteria (Auto) (Negative) COVID-19 Eval Order [facility]FluRsv at [facility] Blood Type Antibody Screen Imaging Data Radiologist's Impression: XR chest 1V portable CLINICAL HISTORY: SEPSIS COMPARISON STUDY: No previous studies for comparison. FINDINGS: The heart is normal in size. There is interstitial thickening and bilateral pulmonary airspace opacities. A multifocal pneumonia is favored over pulmonary edema. Correlation with Covid 19 testing is recommended. There are no significant pleural effusions. IMPRESSION: Interstitial thickening and bilateral pulmonary airspace opacities. A multifocal pneumonia is favored over pulmonary edema. Clinical and radiographic follow-up is recommended. ACT 112: Negative or not required by law. Electronically signed by: Lowell Estrada M.D. 08/15/2020 11:37 AM Dictated: 08/15/20 1136 Transcribed: 08/15/20 1136 ECG Data Attestation: I personally reviewed and interpreted this ECG as follows: Indication: + altered mental status Rate (beats per minute): 99 Rhythm: + normal sinus ECG Intervals/blocks: + Prolonged QT ECG ST segments: no ST elevation ECG Findings: no PVCs MDM Narrative I did evaluate the patient as noted above. I did obtain history from the nurse given the patient's altered mental status. The patient had a blood sugar in the 40s at the rehab hospital. She was given D10 and her blood sugar came up to 65 here. We did give her additional D50 here. The nurse stated that the D50 IV seem to be leaking around the IV site and she was not sure if she got any of it. I therefore ordered glucagon subcu but the patient's repeat blood sugar was 137. The glucagon was not given. I did place an order for continuous cardiac monitoring. The monitor showed normal sinus rhythm at a rate of 99 bpm. I did order and personally review the patient's 12-lead EKG as described above. She has a prolonged QT but no acute ischemia. I did order and personally reviewed the images of the patient's chest x-ray as described above. I did order a urine analysis. She does appear to have a UTI. I did order and review the patient's blood work as noted in the electronic medical record. Her white blood cell count is not elevated. She does have a hemoglobin of 9.4. Platelet count is within normal limits. INR is 3.1. Patient is on Coumadin. Her sodium is 121. Her creatinine is 2.3. Troponin is negative. LFTs are unremarkable other than elevated alk phos. I did obtain labs through the [facility] system. Her last s odium was 129. Creatinine was 2.2. Initial lab glucose was 48 up to 137 after D50. She did eat here without any difficulty. Repeat blood sugar is 65. This is despite eating food here. She was given another half amp of D50. Check of her O2 sat on room air was 88. I did treat her with Decadron 6 mg IV. I did recommend hospitalization. I did discuss case with the hospitalist and case management director. Impression & Plan Hypoxemia, Hyponatremia, Pneumonia due to 2019 novel coronavirus, Acute alteration in mental status, Hypoglycemia, Anemia, Chronic kidney disease Discharge Plan Visit Data Chief Complaint: Hypoglycemia Stated Complaint: AMS, HYPOGLYCEMIA, COVID + ED Provider: Jason Lucero Discharge Problem: Hypoxemia, Hyponatremia, Pneumonia due to 2019 novel coronavirus, Acute alteration in mental status, Hypoglycemia, Anemia, Chronic kidney disease Patient Disposition: Being Evaluated by Hospitalist Forms Stand Alone Forms: My [facility] [employer] Prescriptions Prescriptions: No Action ipratropium-albuterol 20-100 mcg/actuation mist 1 puff inhalation QID RF: 0 ascorbic acid (vitamin C) 500 mg tablet 500 mg PO BID RF: 0 aspirin 81 mg tablet,chewable 81 mg PO DAILY RF: 0 atorvastatin 40 mg tablet 40 mg PO QPM RF: 0 bisacodyl 10 mg suppository 10 mg [place] DAILY PRN (Reason: Constipation) RF: 0 chlorpromazine 25 mg tablet 100 mg PO Q6H PRN (Reason: ) RF: 0 cholecalciferol (vitamin D3) 50 mcg (2,000 unit) capsule 50 mcg PO DAILY RF: 0 docusate sodium 100 mg capsule 100 mg PO BID RF: 0 ferrous fumarate 325 mg (106 mg iron) tablet 325 mg PO BID RF: 0 Trelegy Ellipta 200-62.5-25 mcg blister with device 1 inh inhalation DAILY RF: 0 furosemide 40 mg tablet 40 mg PO BID RF: 0 GlucaGen Diagnostic Kit 1 mg/mL recon soln 1 mg subcut Q20M PRN (Reason: ) RF: 0 insulin aspart U-100 100 unit/mL cartridge 15 unit subcut DAILY RF: 0 insulin aspart U-100 [Novolog PenFill U-100 Insulin] 100 unit/mL cartridge 20 unit subcut BID RF: 0 lidocaine 5 % adhesive patch,medicated 1 patch topical DAILY RF: 0 magnesium hydroxide [Milk of Magnesia] 400 mg/5 mL suspension 5 ml PO DAILY PRN (Reason: ) RF: 0 melatonin 3 mg capsule 3 mg PO HS PRN (Reason: ) RF: 0 metoprolol succinate 25 mg tablet extended release 24 hr 12.5 mg PO Q12H RF: 0 multivitamin Tablet 1 tab PO DAILY RF: 0 nicotine 7 mg/24 hr patch 24 hour 1 patch transdermal Q24H RF: 0 warfarin 3 mg tablet 3 mg PO DAILY RF: 0 oxycodone 5 mg tablet 5 mg PO Q4H PRN (Reason: Pain) RF: 0 polyethylene glycol 3350 [Miralax] 17 gram/dose powder 17 g PO DAILY RF: 0 sodium bicarbonate 650 mg tablet 650 mg PO BID RF: 0 tizanidine 2 mg capsule 2 mg PO Q8H PRN (Reason: ) RF: 0 zinc sulfate 220 (50) mg capsule 220 mg PO DAILY RF: 0 ziprasidone HCl 20 mg capsule 20 mg PO BID RF: 0 Referrals Referrals: [facility] [Primary Care Provider] - Discharge Problem: Anemia Qualifiers: Anemia type: unspecified type Qualified Code(s): D64.9 - Anemia, unspecified Chronic kidney disease Qualifiers: Chronic kidney disease stage: unspecified stage Qualified Code(s): N18.9 - Chr onic kidney disease, unspecified
[2020-08-15 10:18] LABS: Basophils # (auto) 0.01 K/uL (0-0.2); Basophils % (auto) 0.1 %; Eosinophils # (auto) 0.02 K/uL (0-0.5); Eosinophils % (auto) 0.2 %; Hemoglobin 9.4 g/dL (12.0-16.0); Immature Granulocytes # (auto) 0.04 K/uL (0.00-0.02); Immature Granulocytes % (auto) 0.4 %; Lymphocytes # (auto) 0.37 K/uL (1.2-3.4); Lymphocytes % (auto) 4.1 %; Mean Corpuscular Hemoglobin 24.4 pg (25-34); Mean Corpuscular Hgb Conc 31.3 g/dL (32-36); Mean Corpuscular Volume 77.9 fL (80-100); Mean Platelet Volume 8.8 fL (7.4-10.4); Monocytes # (auto) 0.46 K/uL (0.11-0.59); Monocytes % (auto) 5.1 %; Neutrophils % (auto) 90.1 %; Nucleated RBC # (auto) 0.02 K/uL (0-0); Nucleated RBC % (auto) 0.2 %; Platelet Count 311 K/uL (130-400); RDW Coefficient of Variation 19.1 % (11.5-14.5); RDW Standard Deviation 52.6 fL (36.4-46.3); Red Blood Count 3.85 M/uL (4.2-5.4)
[2020-08-15 10:24] LABS: Appearance Urine Cloudy (Clear); Bacteria Urine Automated 2+ (Negative); Bilirubin Urine Negative (Negative); Blood Urine 2+ (Negative); Color Urine Yellow; Epithelial Cell Urine Auto 0-5 /lpf (0-5); Glucose Urine UA Negative (Negative); Ketones Urine Negative (Negative); Leukocyte Esterase Urine 2+ (Negative); Nitrite Urine Negative (Negative); Protein Urine 3+ (Negative); Specific Gravity Urine 1.013 (1.000-1.030); Urobilinogen Urine Negative (Negative); WBC Urine Automated >30 /hpf (0-5); pH Urine 6.5 (4.5-7.5)
[2020-08-15 10:34] LABS: Alanine Aminotransferase 44 U/L (12-78); Albumin Globulin Ratio 0.5 (0.9-2); Albumin Level 2.8 gm/dl (3.4-5.0); Alkaline Phosphatase 210 U/L (45-117); Aspartate Aminotransferase 38 U/L (15-37); BUN Creatinine Ratio 30.9 (10-20); Bilirubin,Total 0.4 mg/dl (0.2-1); Blood Urea Nitrogen 72 mg/dl (7-18); Calcium 7.8 mg/dl (8.5-10.1); Carbon Dioxide 23 mmol/L (21-32); Chloride 91 mmol/L (98-107); Est GFR (African American) 25.7; Est GFR (Non-African American) 22.2; Globulin 5.5 gm/dl (2.5-4.0); Glucose 48 mg/dl (70-99); Potassium 3.7 mmol/L (3.5-5.1); Sodium 121 mmol/L (136-145); Total Protein 8.3 gm/dl (6.4-8.2); Troponin I < 0.015 ng/ml (0-0.045)
[2020-08-15 10:35] LABS: INR 3.1 (0.9-1.1); Partial Thromboplastin Ratio 1.8
[2020-08-15 10:36] LABS: Partial Thromboplastin Time 49.4 Seconds (21.0-31.0)
--- NOTE | 2020-08-15 11:38 | XRay Report ---
XR chest 1V portable CLINICAL HISTORY: SEPSIS COMPARISON STUDY: No previous studies for comparison. FINDINGS: The heart is normal in size. There is interstitial thickening and bilateral pulmonary airsp derrick opacities. A multifocal pneumonia is favored over pulmonary edema. Correlation with Covid 19 test ing is recommended. There are no significant pleural effusions. IMPRESSION: Interstitial thickening and bilateral pulmonary airspace opacities. A multifocal pneumoni a is favored over pulmonary edema. Clinical and radiographic follow-up is recommended. ACT 112: Negative or not required by law. Electronically signed by: Lowell Estrada M.D. 08/15/2020 11:37 AM
[2020-08-15] MEDS ORDERED: DEXAMETHASONE SOD INJ 10 MG/ML VIAL IV ONE (12:53)
[2020-08-15] MEDS ORDERED: CEFEPIME 2,000 MG/20 ML VIAL IV STA (13:08)
[2020-08-15] MEDS ORDERED: VANCOMYCIN CONSULT ACTIVE PRN (13:08)
[2020-08-15 13:25] LABS: C Reactive Protein 1.82 mg/dl (0-0.29); Ferritin 147.2 ng/ml (8-388)
[2020-08-15 13:35] LABS: D Dimer 650 ug/L FEU (0-500)
--- NOTE | 2020-08-15 14:16 | History & Physical Report ---
Date of Service August 15, 2020 Assessment & Plan (1) COVID-19: Hypoxic on arrival, started on Decadron in the EMD. Will continue for 7 days. - Albuterol/Atrovent MDI PRN - Not a candidate for remdesivir secondary to renal function - Will hold on plasma - Oxygent to keep SPO2 88-92 - Follow biomarkers and organ dysfunction - Concomitantly cover for bacterial infection (Urine, Pulmonary aspiration) (2) Complicated UTI (urinary tract infection): Qsofa score- 1 WBC count- 9 CRP- pending PCT- pending MAP- >65 well perfucsed Lactate- 0.7 Blood CX- pending Urine CX- pending, WBC >30, (+) LE, (-) Nit ABX- Broad spectrum coverage await speciation. (3) Hypertension associated with type 1 diabetes mellitus: Continue Lopressor Hold Lasix SBP goal 140, will hold any aggressive treatment and slowly titrate therapy if needed in house. (4) Mitral valve regurgitation: Continue lopressor as above ECHO pending with MRSA (+) wounds Hold lasix with for now (5) IDDM (insulin dependent diabetes mellitus): Half dose lantus while NPO Glucose checks q6 FSBG 140-180 (6) Heart failure: Does not appear to be an acute exacerbation of heart failure, hold lasix with rising BUN and SUSTAINABILITY PROJECT COORDINATOR, volume support with IVF as needed for MAP >65. Repeat ECHO (7) CKD (chronic kidney disease), stage III: Baseline SUSTAINABILITY PROJECT COORDINATOR reported at 2.0. Stage I LAZ. Hold lasix, gently resuscitate Renally dose medications Treat for complicated UTI Fractional excretion of Urea: 73.56 (8) Bipolar disorder: Stable at this time no acute needs Continue outpatient medications (9) Pressure ulcer of BKA stump, stage 2: Wound care consult for continued treatment. 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 Wounds look good. (11) Hyponatremia: Acute hyponatremia- feel that this likely contributed to poor intake while continued diuresing. Euvolemic Hyponatremia. Spec Grav 1.013. Free water restrict, hold lasix, gently resuscitate with 0.9% saline Fractional excretion of Urea: 73.56 History of Present Illness Primary Care Provider: Myra Verma 60 YOF who arrives to the emergency room from [facility]. Patient is a poor historian and poor ability to recall dates. Most of this information was obtained from chart review. Patient is a positive smoker of 1.5-2 packs per day. The patient has a history of DM, HfPref, Rt. BKA, Left Metatarsal Necrosis, Afib (recently started on Warfin), Stroke, and hemolytic anemia/warm antibodies, bipolar and history of cocaine use. Patient recently had a stroke last month presumably from atrial fibrillation and was placed on warfarin, patient is in NSR via telemetry and 12 lead ECG at this time. The patient can not recall why she came to the emergency room or how she got here, but knew she was in the hospital. Patient was brought in by EMS from [facility] secondary to altered mental status and was found to be hypoglycemic in the 40s. Recently tested for COVID 19 which was positive per the patient and EMD provider report. Patient states that her test resulted yesterday however, unable to verify result. Patient is currently being followed by wound management for left first metatarsal wound, and a right stump wound. She is MRSA positive from wounds on her foot and her stump. She is unable to wear her prosthesis secondary to recent stump infection. Patient is normally independant with bathing, feeding, and hygiene, but requires assistance with transfer and mobility. Noted residual effects from stroke are facial droop on the right side, dysarthria, and weakness to right side, patient does endorse that this is her baseline since her stroke. Patient on evaluation has a Qsofa of 1, noted hyponatremia, LAZ and microcytic anemaia, and hypoxia on arrival to the ED with SOP2 88% placed on oxygen with SPO2 99-100% on 2lNC, and supratherapeutic on her INR at 3.1. In the emergency department she received dextrsoe 50% 50 ml, glucagon 1mg, dexamethasone. Allergies Allergy/AdvReac Type Severity Reaction Status Date / Time No Known Allergies Allergy Verified 08/15/20 10:22 Home Medications Medication Instructions Recorded Confirmed Type ascorbic acid (vitamin C) 500 mg 500 mg PO BID 08/03/20 08/15/20 History tablet aspirin 81 mg chewable tablet 81 mg PO DAILY 08/03/20 08/15/20 History atorvastatin 40 mg tablet 40 mg PO QPM 08/03/20 08/15/20 History bisacodyl 10 mg rectal suppository 10 mg IN DAILY PRN 08/03/20 08/15/20 History chlorpromazine 25 mg tablet 150 mg PO HS PRN tab 08/03/20 08/15/20 History cholecalciferol (vitamin D3) 50 50 mcg PO DAILY 08/03/20 08/15/20 History mcg (2,000 unit) capsule docusate sodium 100 mg capsule 100 mg PO BID 08/03/20 08/15/20 History ferrous fumarate 325 mg (106 mg 325 mg PO BID 08/03/20 08/15/20 History iron) tablet fluticasone fur. 200 mcg-umeclid 1 inh INHALATION DAILY 08/03/20 08/15/20 History 62.5 mcg-vilant 25 mcg inhalat.powder furosemide 40 mg tablet 40 mg PO BID 08/03/20 08/15/20 History glucagon (human recombinant) 1 1 mg SUBCUT Q20M PRN 08/03/20 08/15/20 History mg/mL solution for injection insulin aspart U-100 100 unit/mL 15 unit SUBCUT DAILY ml 08/03/20 08/15/20 History subcutaneous cartridge insulin aspart U-100 100 unit/mL 20 unit SUBCUT BID 08/03/20 08/15/20 History subcutaneous cartridge ipratropium 20 mcg-albuterol 100 1 puff INHALATION QID 08/03/20 08/15/20 History mcg/actuation mist for inhalation lidocaine 5 % topical patch 1 patch TOPICAL DAILY 08/03/20 08/15/20 History magnesium hydroxide 400 mg/5 mL 5 ml PO DAILY PRN 08/03/20 08/15/20 History oral suspension melatonin 3 mg capsule 3 mg PO HS PRN 08/03/20 08/15/20 History metoprolol succinate 25 mg 12.5 mg PO Q12H tab 08/03/20 08/15/20 History tablet,extended release 24 hr multivitamin 1 tab PO DAILY 08/03/20 08/15/20 History nicotine 7 mg/24 hr daily 1 patch TRANSDERMAL Q24H 08/03/20 08/15/20 History transdermal patch oxycodone 5 mg tablet 5 mg PO Q4H PRN 08/03/20 08/15/20 History polyethylene glycol 3350 17 17 g PO DAILY 08/03/20 08/15/20 History gram/dose oral powder sodium bicarbonate 650 mg tablet 650 mg PO BID 08/03/20 08/15/20 History tizanidine 2 mg capsule 2 mg PO Q8H PRN 08/03/20 08/15/20 History warfarin 3 mg tablet 3 mg PO DAILY 08/03/20 08/15/20 History zinc sulfate 220 mg PO DAILY 08/03/20 08/15/20 History ziprasidone HCl 20 mg capsule 20 mg PO BID 08/03/20 08/15/20 History Past Med/Surg History Medical History (Updated 08/15/20 @ 15:50 by Jason Lucero MD) Amputation of left great toe Atrial fibrillation and flutter Bipolar disorder delivery delivered CKD (chronic kidney disease), stage III CVA (cerebral vascular accident) Heart failure IDDM (insulin dependent diabetes mellitus) Insomnia Mitral valve regurgitation Pulmonary hypertension Stroke Surgical History Hx of right BKA Social History Smoking Status: Current every day smoker Tobacco Type: Cigarettes packs per day: 2; Years Smoked: 40; Second Hand Exposure: No; Hx Alcohol Use: No Hx Substance Use: Yes (coke and crack) Non-Prescribed Medications: Crack / Cocaine Last Used Substance Other:: 17 years ago Preferred Language: Nauruan Communication Ability: Effective Beliefs That Will Affect Care: None marital status: Single Current Living Situation: Alone current occupational status: unemployed and disabled How many Children do You have: 2 Other Information That Helps Us Care for You: Yes Feels Safe at Home: Yes caffeine: Yes Dental Care, Regularly: No Assistive Devices: Oxygen - Continuous and Prosthesis Assistive Devices Comment: unable to wear prosthesis due to wounds Review of Systems Review of Systems: REVIEW OF SYSTEMS: Constitutional: + fever, chills Eyes: No diplopia, no worsening or blurred vision ENT: + dysphagia, + coughing while eating or drinking, - normal hearing, no exuadate, no sore throat Respiratory: + cough, + sputum, + dyspnea on exertion, No dyspnea at rest Cardiovascular: No chest pain, tightness or palpitations Abdomen: No pain, nausea, vomiting, diarrhea or constipation Musculoskeletal: No joint pain, calf pain, swelling Neurologic: No weakness, numbness/tingling, or balance problems Psychiatric: No anxiety or depression Skin: per HPI Physical Exam Physical Exam: PHYSICAL EXAM: General: awakens to voice easily able to stay awake for all interview Head: Normocephalic, atraumatic ENT: PERRL, EOMI, no pharyngeal exudate, mucous membranes dry Chest: scattered rhonchi throughout, diminished in bases, productive cough with thick white sputum. Cardiac: Regular rate and rhythm, grade II systolic murmur left sternal border, no JVD, normal peripheral pulses, good capillary refill. ECG reviewed, telemetry reviewed. Abdominal: Obese, normal bowel sounds all 4 quadrants, soft, nontender to palpation, no rebound, guarding or tenderness : Madden to gravity draining slightly blood tinged urine. UA reviewed Extremities: right bka, left first metatarsal partial amputation, no peripheral edema or erythema, calf nontender to palpation Psych: Normal mood and affect Neuro: AAO x 2 (person and place), strength intact and rated 5/5 left 4/5 on right speech is slurred and slow, no peripheral sensory deficits Skin: clean and dry dressing to left metatarsal, good wound base, dressing to right stump intact no drainage, surrounding area of BKA is soft and not indurated. Results & Data Results & Data ([facility]) Vital Signs (Past 12 Hours) Vital Signs Temp Pulse Pulse Resp BP BP Pulse Ox 08/15/20 12:50 93 H 15 97 08/15/20 12:40 87 88 L 08/15/20 12:31 0 L 90 08/15/20 12:30 0 L 166/120 H 90 08/15/20 12:20 0 L 92 08/15/20 12:10 98 08/15/20 12:01 190/134 H 98 08/15/20 12:00 98 08/15/20 11:50 0 L 13 96 08/15/20 11:40 0 L 20 100 08/15/20 11:31 0 L 18 100 08/15/20 11:30 0 L 21 188/119 H 100 08/15/20 11:20 0 L 17 100 08/15/20 11:10 0 L 16 100 08/15/20 11:01 0 L 16 100 08/15/20 11:00 0 L 17 173/114 H 100 08/15/20 10:51 0 L 17 100 08/15/20 10:50 0 L 94 H 13 176/121 H 176/121 H 100 08/15/20 10:40 0 L 13 100 08/15/20 10:30 0 L 14 99 08/15/20 10:20 0 L 14 99 08/15/20 10:15 36.7 C 99 H 22 159/114 H 92 08/15/20 10:10 0 L 25 H 100 08/15/20 10:01 0 L 21 100 08/15/20 10:00 0 L 20 159/114 H 100 08/15/20 09:50 0 L 20 100 08/15/20 09:40 0 L 17 100 08/15/20 09:31 0 L 18 100 08/15/20 09:30 0 L 19 171/124 H 100 08/15/20 09:28 0 L 17 165/131 H 100 08/15/20 09:27 90 22 Code Status & VTE Plan Code Status Patient wishes to be full code. VTE: re-start Coumadin when INR normalizes. Will not place SCD's secondary to PAD and right BKA VTE Prophylaxis Plan VTE Prophylaxis will be ordered: Yes Supervising Physician Co-Signing Physician Notes I personally saw and examined the patient. I verified all senior points and agree with SYLVIA Lee with the following exceptions and/or additions: 60 year old female with recent complex history of left medial frontal and lacunar infarct CVA, stump cellulitis who presents from [facility] with altered mental state in the setting of COVID-19. O/E alert and orientated x3, mild left facial droop, slurred speech, Right , rhonchi throughout anteriorly and posteriorly, Right BKA (ulcer over lateral stump without surrounding cellulitis), no areas of cellulitis A/P Altered mental status - suspect majority of this was her hypoglycemia on admission due to insulin and not eating as mentation much improved after D50 given in ER. Hypoglycemia with T2DM - Lantus sliding scale. HbA1C with AM labs. COVID-19 pneumonia - Associated hypoxia therefore will treat with dexamethasone 6mg IV daily. Suspect this diagnosis lead to her poor oral intake and subsequent hypoglycemia. High risk of pulmonary edema but currently hypovolemic. Hyponatremia - 2 days of not eating/drinking, dry mucus membranes, increased lasix use at [facility], suspect mildly hypovolemic on admission (although recent hypervolemia with need for diuresis will need to be careful with IV fluids) Acute UTI - Suspected given hematuria and AMS, madden cath placed in ER, continue IV cefepime and vancomycin pending blood and urine cultures Supratherapeutic INR with hematuria - Hold warfarin, madden cath placed, ?UTI driving hematuria in setting of warfarin, will continue aspirin for now and reversal with Vit K deferred given recent CVA. Paroxysmal atrial fibrillation - currently in NSR, suspected to cause her recent CVA, monitor on telemetry. Microcytic anemia - unknown baseline, ?secondary to hematuria, FOB pending. CBC with AM labs. Recent CVA with dysphagia - aspiration precautions, speech consult (previously cleared for oral intake but patient reports ongoing coughing after eating) CKD - baseline 1.7-2.2 per prior notes, diagnosed with type 4 RTA, repeat BMP later today, if increasing will consult nephrology for help with fluid management in this complex patient, likely to need diuresis once oral intake sufficient. (1) Heart failure Heart failure chronicity: chronic Heart failure type: diastolic Qualified Code(s): I50.32 - Chronic diastolic (congestive) heart failure (2) CKD (chronic kidney disease), stage III Chronic kidney disease stage 3 subtype: unspecified whether 3a or 3b Qualified Code(s): N18.30 - Chronic kidney disease, stage 3 unspecified (3) Bipolar disorder Active/Remission status: currently active Psychotic features: without psychotic features (4) Mitral valve regurgitation Cardiac valve disease etiology: etiology unspecified Qualified Code(s): I34.0 - Nonrheumatic mitral (valve) insufficiency (5) 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
[2020-08-15] MEDS ORDERED: VANCOMYCIN HCL 1,750 MG in SODIUM CHLORIDE 0.9% 500 ML IV ONE (14:30)
--- NOTE | 2020-08-15 15:31 | Pharmacy Report ---
Pharmacy Abx Initial Consult - Date of Service August 15, 2020 - Pharmacy Dosing Scope Date of Consult: 08/15/20 Consultation requested by: Dr. Ramos Pharmacy is consulted to initiate Vancomycin IV dosing therapy, order appropriate labs and adjust drug dose/frequency. - Subjective The patient is a 60 year old F admitted on . - Objective Weight: 83 kg Vital Signs (Past 12hrs): Vital Signs Temp Pulse Pulse Resp BP BP Pulse Ox 08/15/20 14:20 17 100 08/15/20 14:10 69 13 100 08/15/20 14:01 68 13 100 08/15/20 14:00 68 14 178/110 H 100 08/15/20 13:50 69 18 100 08/15/20 13:40 66 14 99 08/15/20 13:31 0 L 17 99 08/15/20 13:30 0 L 15 165/126 H 99 08/15/20 13:20 0 L 14 100 08/15/20 13:10 0 L 14 98 08/15/20 13:01 0 L 14 98 08/15/20 13:00 0 L 16 175/124 H 99 08/15/20 12:50 93 H 15 97 08/15/20 12:40 87 88 L 08/15/20 12:31 0 L 90 08/15/20 12:30 0 L 166/120 H 90 08/15/20 12:20 0 L 92 08/15/20 12:10 98 08/15/20 12:01 190/134 H 98 08/15/20 12:00 98 08/15/20 11:50 0 L 13 96 08/15/20 11:40 0 L 20 100 08/15/20 11:31 0 L 18 100 08/15/20 11:30 0 L 21 188/119 H 100 08/15/20 11:20 0 L 17 100 08/15/20 11:10 0 L 16 100 08/15/20 11:01 0 L 16 100 08/15/20 11:00 0 L 17 173/114 H 100 08/15/20 10:51 0 L 17 100 08/15/20 10:50 0 L 94 H 13 176/121 H 176/121 H 100 08/15/20 10:40 0 L 13 100 08/15/20 10:30 0 L 14 99 01/10/21 10:20 0 L 14 99 08/15/20 10:15 36.7 C 99 H 22 159/114 H 92 08/15/20 10:10 0 L 25 H 100 08/15/20 10:01 0 L 21 100 08/15/20 10:00 0 L 20 159/114 H 100 08/15/20 09:50 0 L 20 100 08/15/20 09:40 0 L 17 100 08/15/20 09:31 0 L 18 100 08/15/20 09:30 0 L 19 171/124 H 100 08/15/20 09:28 0 L 17 165/131 H 100 08/15/20 09:27 90 22 Lab Results (24hrs): Laboratory Tests (24 Hours) 08/15/20 08/15/20 08/15/20 09:47 09:47 09:47 WBC 9.10 Neut # (Auto) 8.20 H Creatinine Est Cr Clr Drug Dosing Total Creatine Kinase 95 C-Reactive Protein 1.82 H Procalcitonin 0.06 08/15/20 09:47 WBC Neut # (Auto) Creatinine 2.34 H Est Cr Clr Drug Dosing Not Reportable Total Creatine Kinase C-Reactive Protein Procalcitonin Micro Results: 08/15/20 09:40 Urine Culture - Pending Urine,Straight Cath 08/15/20 09:45 Aerobic Blood Culture - Pending Blood Anaerobic Blood Culture - Pending 08/15/20 09:47 Aerobic Blood Culture - Pending Blood Anaerobic Blood Culture - Pending - Risk Factors for Resistance * Resident in an extended-care facility ([facility]) * Hospitalization for 48 hours or more within the past 90 days - Assessment & Plan Assessment 60 year old F initiated on IV vancomycin for COVID+ plus possible superimposed HAP and UTI. Pt with CKD, baseline Scr ~ 2 mg/dl Pt with R BKA which will alter Vanco PK Plan Vancomycin IV * Loading dose: 1,750 mg (20 mg/kg) * Then, Random vancomycin level tomorrow with AM labs. * Will dose vancomycin when random level is in goal trough range. * Goal trough level for pulm: 15 to 20 mcg/mL * A less than traditional dose and/or extended dosing interval has/have been selected due to likelihood of drug accumulation in obese patient/patient with h/o CKD. Pharmacy will continue to follow and will adjust dose/frequency as necessary. Thank you.
[2020-08-15] MEDS ORDERED: POLYETHYLENE (MIRALAX) 17 GM PACK PO PRN (15:38)
[2020-08-15] MEDS ORDERED: SODIUM CHLORIDE 0.9% 1000ML 1,000 ML IV ONE (15:44)
[2020-08-15] MEDS ORDERED: GLUCAGON FOR INJ 1 MG VIAL SQ PRN (15:48)
[2020-08-15] MEDS ORDERED: GLUCOSE 10 TABS/TUBE PO PRN (15:48)
[2020-08-15] MEDS ORDERED: GLUCOSE 40% GEL 15 GM TUBE PO PRN (15:48)
[2020-08-15] MEDS ORDERED: bisacodyL 10 MG SUPP PR PRN (16:00)
[2020-08-15 16:35] LABS: Influenza A virus by PCR Negative (Neg); Influenza B virus by PCR Negative (Neg); RSV by PCR Negative (Neg)
[2020-08-15 16:43] LABS: SARS CoV2 RNA(COVID-19) InHosp POSITIVE (Negative)
[2020-08-15 16:49] LABS: BUN Creatinine Ratio 26.6 (10-20); Blood Urea Nitrogen 69 mg/dl (7-18); Calcium 7.6 mg/dl (8.5-10.1); Carbon Dioxide 22 mmol/L (21-32); Chloride 94 mmol/L (98-107); Est GFR (African American) 22.8; Est GFR (Non-African American) 19.6; Glucose 81 mg/dl (70-99); Potassium 4.2 mmol/L (3.5-5.1); Sodium 126 mmol/L (136-145)
[2020-08-15] MEDS ORDERED: IPRATROPIUM BROMIDE/ALBUTEROL respimat INH INH SCH (17:00)
--- NOTE | 2020-08-15 17:02 | Electrocardiogram Report ---
Test Reason : Blood Pressure : / mmHG Vent. Rate : 099 BPM Atrial Rate : 099 BPM P-R Int : 186 ms QRS Dur : 098 ms QT Int : 392 ms P-R-T Axes : 016 046 060 degrees QTc Int : 503 ms Normal sinus rhythm Prolonged QT Abnormal ECG No previous ECGs available Confirmed by Rainer Escalante ([id number]) on 08/15/2020 5:02:17 PM Referred By: Confirmed By:Rony Escalante
[2020-08-15 17:38] LABS: Creatinine Urine Random 22.4 mg/dl
[2020-08-15] MEDS: PATIENT'S HEIGHT AND/OR WEIGHT NEEDED SCH ×2 (17:47→17:49)
[2020-08-15] MEDS: ACETAMINOPHEN 325 MG TAB PO PRN (20:09)
[2020-08-15] MEDS: MELATONIN 3 MG TAB PO PRN (20:10)
[2020-08-15] MEDS: METOPROLOL SUCC 25MG EXT REL TAB PO SCH (20:11)
[2020-08-15] MEDS: ATORVASTATIN 40 MG TAB PO SCH (20:12)
[2020-08-15] MEDS: DOCUSATE SODIUM 100 MG CAP PO SCH (20:12)
[2020-08-15] MEDS: FERROUS SULFATE 325 MG TAB PO SCH (20:12)
[2020-08-15] MEDS: SODIUM BICARBONATE 650 MG TAB PO SCH (20:13)
[2020-08-15] MEDS: tiZANidine HCL 4 MG TABLET PO PRN (20:51)
[2020-08-16] MEDS: ACETAMINOPHEN 325 MG TAB PO PRN ×2 (03:35→21:37)
[2020-08-16 07:26] LABS: Hematocrit (blood only) 25.6 % (37-47); Mean Corpuscular Hemoglobin 24.6 pg (25-34); Mean Corpuscular Hgb Conc 31.3 g/dL (32-36); Mean Corpuscular Volume 78.8 fL (80-100); Mean Platelet Volume 8.8 fL (7.4-10.4); Platelet Count 215 K/uL (130-400); RDW Coefficient of Variation 19.6 % (11.5-14.5); RDW Standard Deviation 54.3 fL (36.4-46.3); Red Blood Count 3.25 M/uL (4.2-5.4); White Blood Count 11.03 K/uL (4.8-10.8)
[2020-08-16 07:58] LABS: INR 4.7 (0.9-1.1); Prothrombin Time 45.4 Seconds (9.0-12.0)
[2020-08-16] MEDS ORDERED: INSULIN GLARGINE SOLOSTAR 100 UNITS/ML 3 ML PEN SC SCH ×2 (08:00→09:00)
[2020-08-16] MEDS: Ipratropium HFA Inhaler (Combivent Respimat P&T Subs) INH SCH ×4 (08:02→19:31)
[2020-08-16] MEDS: Albuterol HFA 8 GM Inhaler (Combivent Respimat P&T Subs) INH SCH ×4 (08:03→19:31)
[2020-08-16 08:06] LABS: BUN Creatinine Ratio 33.3 (10-20); Calcium 7.7 mg/dl (8.5-10.1); Creatinine Clr Calc Pharmacy 28.5 ml/min; Est GFR (African American) 28.5; Est GFR (Non-African American) 24.6; Magnesium 2.6 mg/dl (1.8-2.4); Phosphorus 4.7 mg/dl (2.5-4.9); Potassium 4.3 mmol/L (3.5-5.1)
[2020-08-16 08:07] LABS: Anisocytosis Present; Immature Granulocytes # (auto) 0.02 K/uL (0.00-0.02); Immature Granulocytes % (auto) 0.2 %; Lymphocytes # (auto) 0.19 K/uL (1.2-3.4); Lymphocytes % (auto) 1.7 %; Monocytes # (auto) 0.54 K/uL (0.11-0.59); Monocytes % (auto) 4.9 %; Neutrophils # (auto) 10.28 K/uL (1.4-6.5); Neutrophils % (auto) 93.2 %; Poikilocytosis Present; Polychromasia 1+
[2020-08-16] MEDS: DEXAMETHASONE SOD PHOSPHATE 6 MG in SYRINGE 0 ML IV SCH (08:07)
[2020-08-16] MEDS: SODIUM BICARBONATE 650 MG TAB PO SCH ×2 (08:07→21:43)
[2020-08-16] MEDS: MULTIVITAMIN TAB PO SCH (08:07)
[2020-08-16] MEDS: FERROUS SULFATE 325 MG TAB PO SCH ×2 (08:08→21:44)
[2020-08-16] MEDS: METOPROLOL SUCC 25MG EXT REL TAB PO SCH ×2 (08:08→21:43)
[2020-08-16] MEDS: ASPIRIN 81 MG ECTAB PO SCH (08:08)
[2020-08-16] MEDS: CHOLECALCIFEROL 1,000 UNITS 25 MCG TAB PO SCH (08:08)
[2020-08-16] MEDS: DOCUSATE SODIUM 100 MG CAP PO SCH ×2 (08:08→21:44)
[2020-08-16] MEDS: POLYETHYLENE (MIRALAX) 17 GM PACK PO SCH (08:08)
[2020-08-16] MEDS: UMECLIDINIUM/VILANTEROL 62.5/25MCG 7 PUFFS/INHALER INH SCH (08:09)
[2020-08-16] MEDS: LIDOCAINE 5% 1 PATCH TD SCH (08:09)
[2020-08-16] MEDS: FLUTICASONE FUROATE 200MCG 14 PUFFS/INHALER INH SCH (08:09)
[2020-08-16] MEDS: tiZANidine HCL 4 MG TABLET PO PRN ×2 (08:12→21:38)
--- NOTE | 2020-08-16 08:13 | Ultrasound Report ---
EXAMINATION: RENAL ULTRASOUND CLINICAL HISTORY: Acute renal insufficiency. Hematuria. Evaluate for hydronephrosis. COMPARISON STUDY: FINDINGS: The right kidney measures 11.2 cm. The left kidney measures 10.6 cm. There is no evidence of hydronephrosis. There are small bilateral renal cysts. The largest in the right measures 15 mm. T he largest on the left measures 1 cm. Bladder was decompressed at the time of the study. There is a joint Melchor catheter. IMPRESSION : No evidence of hydronephrosis. ACT 112: Negative or not required by law. Electronically signed by: Lowell Estrada M.D. 08/16/2020 8:12 AM
[2020-08-16] MEDS ORDERED: DEXAMETHASONE SOD INJ 10 MG/ML VIAL IV SCH (09:00)
[2020-08-16 09:18] LABS: Estimated Average Glucose 160 mg/dl; Hemoglobin A1C 7.2 % (4.5-5.6)
--- NOTE | 2020-08-16 11:48 | Billing Data ---
Date of Service August 15, 2020 Coding Level of Care Code 04816 Initial Inpt Care Lvl 3
[2020-08-16] MEDS: CEFEPIME 2,000 MG in SYRINGE 0 ML IV SCH (12:00)
--- NOTE | 2020-08-16 15:40 | Nephrology Consultation ---
Date of Consultation August 16, 2020 Assessment & Plan (1) Acute kidney injury: * LAZ due to dehydration related to outpatient diuretic therapy * Resolved following IV hydration * 08/26 renal US negative for hydronephrosis * Urinalysis c/w UTI (2) Chronic kidney disease: * Stage III CKD w/ baseline Cr ~ 2.2 * h/o nephrotic range proteinuria - likely underlying diabetic nephropathy * On NaHCO3 therapy to correct metabolic acidosis (3) Hyponatremia: * Correcting w/ IV hydration * Hold IVF for now to slow the rate of correction * Monitor PRP (4) Complicated UTI (urinary tract infection): * Urine culture w/ gram negative bacilli. Await ID & sensitivities * On Cefepime therapy (5) Diabetic ulcer of left foot associated with diabetes mellitus due to und erlying condition, limited to breakdown of skin: * Wound + for MRSA * Vanco 1750 mg IV x1 given at time of admission (6) COVID-19: * On IV Dexamethasone History of Present Illness Reason for Consultation: LAZ/CKD, hyponatremia Attending Physician: Booker Whyte History of Present Illness Ms. Garay is a 60 year old white female who is seen at the request of Dr. Whyte for evaluation of LAZ/CKD, hyponatremia. Medical records in the EMR were reviewed today and are summarized as follows: Ms. Garay has AODM complicated by PVD. She is s/p R BKA. She also has CKD w/ baseline Cr 1.7 - 2.2 and nephrotic range proteinuria. Her medical history is significant for longstanding tobacco use, h/o cocaine use, bipolar disorder and atrial fibril lation. In July 2020 Ms. Garay was found to have infection of her R BKA site and suffered a L frontal lobe CVA. She was hospitalized at [facility] in [place], [place]. She was discharged to [facility] for physical therapy. While at [facility] she was found to have a diabetic ulcer involving her L foot and was cared for a the [facility] wound clinic. On 08/15/20 Ms. Garay was taken to [facility] ED for evaluation of lethargy. Evaluation revealed BSG ~ 40, COVID +, CXR w/ bilateral airspace opacities c/w multifocal pneumonia, Na 121 and LAZ w/ Cr 2.6. She was admitted to the COVID unit and treated w/ Dexamethasone and empiric Cefipime. Diuretics were held and IV hydration was provided w/ 0.9NS. Na has improved to 130 mmol/L and Cr has dropped to 2.1. Renal US reveals R 11.2cm, L 10.6cm. No hydronephrosis. Allergies Allergy/AdvReac Type Severity Reaction Status Date / Time No Known Allergies Allergy Verified 08/15/20 10:22 Home Medications Medication Instructions Recorded Confirmed Type ascorbic acid (vitamin C) 500 mg 500 mg PO BID 08/03/20 08/15/20 History tablet aspirin 81 mg chewable tablet 81 mg PO DAILY 08/03/20 08/15/20 History atorvastatin 40 mg tablet 40 mg PO QPM 08/03/20 08/15/20 History bisacodyl 10 mg rectal suppository 10 mg NE DAILY PRN 08/03/20 08/15/20 History chlorpromazine 25 mg tablet 150 mg PO HS PRN tab 08/03/20 08/15/20 History cholecalciferol (vitamin D3) 50 50 mcg PO DAILY 08/03/20 08/15/20 History mcg (2,000 unit) capsule docusate sodium 100 mg capsule 100 mg PO BID 08/03/20 08/15/20 History ferrous fumarate 325 mg (106 mg 325 mg PO BID 08/03/20 08/15/20 History iron) tablet fluticasone fur. 200 mcg-umeclid 1 inh INHALATION DAILY 08/03/20 08/15/20 History 62.5 mcg-vilant 25 mcg inhalat.powder furosemide 40 mg tablet 40 mg PO BID 08/03/20 08/15/20 History glucagon (human recombinant) 1 1 mg SUBCUT Q20M PRN 08/03/20 08/15/20 History mg/mL solution for injection insulin aspart U-100 100 unit/mL 15 unit SUBCUT DAILY ml 08/03/20 08/15/20 History subcutaneous cartridge insulin aspart U-100 100 unit/mL 20 unit SUBCUT BID 08/03/20 08/15/20 History subcutaneous cartridge ipratropium 20 mcg-albuterol 100 1 puff INHALATION QID 08/03/20 08/15/20 History mcg/actuation mist for inhalation lidocaine 5 % topical patch 1 patch TOPICAL DAILY 08/03/20 08/15/20 History magnesium hydroxide 400 mg/5 mL 5 ml PO DAILY PRN 08/03/20 08/15/20 History oral suspension melatonin 3 mg capsule 3 mg PO HS PRN 08/03/20 08/15/20 History metoprolol succinate 25 mg 12.5 mg PO Q12H tab 08/03/20 08/15/20 History tablet,extended release 24 hr multivitamin 1 tab PO DAILY 08/03/20 08/15/20 History nicotine 7 mg/24 hr daily 1 patch TRANSDERMAL Q24H 08/03/20 08/15/20 History transdermal patch oxycodone 5 mg tablet 5 mg PO Q4H PRN 08/03/20 08/15/20 History polyethylene glycol 3350 17 17 g PO DAILY 08/03/20 08/15/20 History gram/dose oral powder sodium bicarbonate 650 mg tablet 650 mg PO BID 08/03/20 08/15/20 History tizanidine 2 mg capsule 2 mg PO Q8H PRN 08/03/20 08/15/20 History warfarin 3 mg tablet 3 mg PO DAILY 08/03/20 08/15/20 History zinc sulfate 220 mg PO DAILY 08/03/20 08/15/20 History ziprasidone HCl 20 mg capsule 20 mg PO BID 08/03/20 08/15/20 History Patient History Medical History Amputation of left great toe Atrial fibrillation and flutter Bipolar disorder delivery delivered CKD (chronic kidney disease), stage III CVA (cerebral vascular accident) Heart failure IDDM (insulin dependent diabetes mellitus) Insomnia Mitral valve regurgitation Pulmonary hypertension Stroke Surgical History Hx of right BKA Social History (Updated 08/16/20 @ 15:37 by Lambert Duarte MD) Smoking Status: Current every day smoker Tobacco Type: Cigarettes packs per day: 2; Years Smoked: 40; Second Hand Exposure: No; Hx Alcohol Use: No Hx Substance Use: Yes (coke and crack) Non-Prescribed Medications: Crack / Cocaine Last Used Substance Other:: 17 years ago Preferred Language: Welsh Communication Ability: Effective Beliefs That Will Affect Care: None marital status: Single Current Living Situation: Alone current occupational status: unemployed and disabled 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 How many Children do You have: 2 Other Information That Helps Us Care for You: Yes Feels Safe at Home: Yes caffeine: Yes Dental Care, Regularly: No Assistive Devices: Oxygen - Continuous and Prosthesis Assistive Devices Comment: unable to wear prosthesis due to wounds Review of Systems Constitutional: + weakness; no fever Eyes: no problem reported Ear, Nose, Mouth, Throat: no problem reported Respiratory: no dyspnea Cardiovascular: no chest pain and no edema Gastrointestinal: no abdominal pain, no vomiting and no diarrhea/loose stools Genitourinary: no dysuria and no hematuria Musculoskeletal: no back pain Integumentary: no rash Neurologic: no confusion Physical Exam Constitutional: + frail appearing (chronically ill appearing) Eyes: PERRL, conjunctivae normal, anicteric sclerae ENMT: Mouth: + dry oral mucous membranes Neck: trachea midline, no thyromegaly Respiratory: Auscultation: + rales Cardiovascular: RRR, no murmur, no edema Gastrointestinal (Abdomen): normal bowel sounds, soft, nontender, no hepatosplenomegaly Musculoskeletal: R BKA Skin: + turgor decreased Neurologic: awake Results & Data ([facility]) Vital Signs (Past 12 Hours) Vital Signs Temp Pulse Pulse Pulse Resp BP Pulse Ox 08/16/20 11:49 36.5 C 66 18 131/83 100 08/16/20 11:40 64 18 98 08/16/20 10:56 65 08/16/20 08:04 63 17 99 08/16/20 07:51 36.5 C 64 19 117/76 99 08/16/20 04:00 36.9 C 63 19 119/71 97 Laboratory Tests 08/16/20 08/16/20 06:39 06:39 WBC 11.03 H Hgb 8.0 L Hct 25.6 L Plt Count 215 Sodium 130 L Potassium 4.3 Chloride 100 Carbon Dioxide 20 L BUN 72 H Creatinine 2.15 H D Glucose 93 Calcium 7.7 L Magnesium 2.6 H Laboratory Tests 08/15/20 09:40 Urine Color Yellow Urine Appearance Cloudy A Ur Specific [place] 1.013 Urine Protein 3+ H Urine Blood 2+ H Ur Leukocyte Esterase 2+ H Urine WBC (Auto) >30 H Urine RBC (Auto) 10-30 H Urine Bacteria (Auto) 2+ H PG Care Time/CCT Total # of Minutes Spent Total Time Spent with Patient: Total time spent is greater than 50% in coordination of care (as documented) at patient's floor/unit and/or counseling patient: Coding Level of Care Code 65688 Inpt Consult Level 5 Diagnoses Acute kidney injury N17.9 Chronic kidney disease N18.9 Chronic kidney disease stage: unspecified stage Hyponatremia E87.1 Complicated UTI (urinary tract infection) N39.0 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, limited to breakdown of skin E08.621; L97.521 Diabetic foot ulcer location: toe COVID-19 U07.1 (1) Chronic kidney disease Chronic kidney disease stage: unspecified stage Qualified Code(s): N18.9 - Ch ronic kidney disease, unspecified (2) 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
[2020-08-16] MEDS ORDERED: PHARMACY GLYCEMIC MGMT CONSULT PRN (16:27)
[2020-08-16] MEDS ORDERED: INSULIN HUMAN REGULAR PER UNIT 7 UNITS in SYRINGE 6.93 ML IV ONE (16:45)
[2020-08-16] MEDS ORDERED: INSULIN ASPART 100 UNITS/ML 3 ML PEN SC SCH ×2 (17:00→21:00)
[2020-08-16] MEDS ORDERED: INSULIN GLARGINE SOLOSTAR 100 UNITS/ML 3 ML PEN SC ONE (17:00)
[2020-08-16] MEDS ORDERED: oxyCODONE HCL IR 5 MG TAB (IMMEDIATE RELEASE) PO STA (17:09)
--- NOTE | 2020-08-16 20:09 | Pharmacy Report ---
Pharmacy Glycemic Short Note 2 - Date of Service August 16, 2020 - Glycemic Short BSG Results (Last 24 hours): 08/15/20 08/16/20 08/16/20 23:45 06:39 11:45 Glucose 93 POC Glucose 116 H 125 H 08/16/20 08/16/20 16:15 16:17 Glucose POC Glucose 329 H* 362 H* OUTPATIENT ANTIDIABETIC REGIMEN: * Lantus + Humalog * Outpatient fill hx does not have doses listed. Med rec has differing doses of Humalog. Spoke with RN who informed me patient is not alert enough to remember outpatient insulin doses. * A1c = 7.2% (08/16/2020) RISK FACTORS FOR INSULIN RESISTANCE: * Covid-19 PNA with possible bacterial pna on cefepime * Dexamethasone 6 mg IV daily * Regular diet ASSESSMENT: * 60 yo F admitted secondary to Covid. Unsure of outpatient insulin doses. Pharmacy was consulted this evening for assistance with inpatient glycemic management. * BSG was 93 mg/dL this AM and then trended up to 125 mg/dL at lunch. No insulin was given. * Dinner BSG was elevated at 329 mg/dL and recheck was 362 mg/dL. * Gave 20 units of Lantus and a 7 unit IV insulin bolus. * Started Novolog with CF and CR of 20 and 7, respectively. Will add overnight checks if HS BSG is elevated. * Since outpatient diabetes regimen is unknown, planning to start 10 units of Lantus BID but NPH dose with dexamethasone daily may be necessary depending on fasting BSG. PLAN FOR INPATIENT GLYCEMIC CONTROL: * Basal insulin * Lantus 20 units SQ x 1 then 10 units SC BID * Bolus insulin * NovoLog per scale ACHS or Q6hrs while NPO * Goal Range: Low 110 mg/dL - High 140 mg/dL * Correction Factor: 20 mg/dL/unit * Nutritional / Prandial insulin per carb ratio of 1 unit per 7 grams CHO consumed PLAN FOR DISCHARGE: * To be determined
[2020-08-16] MEDS ORDERED: INSULIN PROTOCOL GOAL RANGE ONE (20:57)
[2020-08-16] MEDS ORDERED: MODERATE STRESS LEVEL ONE (20:57)
[2020-08-16] MEDS ORDERED: SODIUM CHLORIDE 0.9% 1000ML 1,000 ML IV SCH (21:00)
[2020-08-16] MEDS ORDERED: INSULIN REGULAR 250 UNITS in SODIUM CHLORIDE 0.9% 247.5 ML IV SCH (21:00)
[2020-08-16] MEDS ORDERED: NovoLIN-R BOLUS FROM BAG IV ONE (21:00)
[2020-08-16] MEDS ORDERED: PHARMACY GLYCEMIC MGMT CONSULT STA (21:19)
[2020-08-16] MEDS: INSULIN REGULAR 250 UNITS in SODIUM CHLORIDE 0.9% 247.5 ML IV SCH (21:33)
[2020-08-16] MEDS: oxyCODONE HCL IR 5 MG TAB (IMMEDIATE RELEASE) PO PRN (21:37)
[2020-08-16] MEDS: MELATONIN 3 MG TAB PO PRN (21:38)
[2020-08-16] MEDS: INSULIN ASPART 100 UNITS/ML 3 ML PEN SC SCH (21:41)
[2020-08-16] MEDS: ATORVASTATIN 40 MG TAB PO SCH (21:42)
--- NOTE | 2020-08-16 22:51 | Hospitalist Progress Note ---
Date of Service August 16, 2020 Assessment & Plan (1) COVID-19: Hypoxic on arrival, started on Decadron in the EMD. Will continue for 7 days. -off oxygen supplementation, will need to se how patient tolerates this for 24 hours. -if continues to be off oxygen supplementation may consider [facility]. - Albuterol/Atrovent MDI PRN - Not a candidate for remdesivir secondary to renal function - Will hold on plasma - Oxygent to keep SPO2 88-92 - Follow biomarkers and organ dysfunction - Concomitantly cover for bacterial infection (Urine, Pulmonary aspiration) (2) Complicated UTI (urinary tract infection): Qsofa score- 1 WBC count- 9 CRP- 1.82 PCT- 0.06 MAP- >65 well perfucsed Lactate- 0.7 Blood CX- pending Urine CX- pending, WBC >30, (+) LE, (-) Nit ABX- Broad spectrum coverage await speciation. Satrted on admission, unsure ifpatient has any symptoms of a UTI. Patient is a poor historian, not complaining of dysuria. Will consider re-interrogating her on this topic tomorrow. May consider stopping abx if she was asymptomatic. (3) Hypertension associated with type 1 diabetes mellitus: Continue Lopressor Hold Lasix SBP goal 140, will hold any aggressive treatment and slowly titrate therapy if needed in house. (4) Mitral valve regurgitation: Continue lopressor as above ECHO pending with MRSA (+) wounds Hold lasix with for now (5) IDDM (insulin dependent diabetes mellitus): Half dose lantus while NPO Glucose checks q6 FSBG 140-180 (6) Heart failure: Does not appear to be an acute exacerbation of heart failure, hold lasix with rising BUN and DRUG WORKER, volume support with IVF as needed for MAP >65. Repeat ECHO (7) CKD (chronic kidney disease), stage III: Baseline DRUG WORKER reported at 2.0. Stage I LAZ. Hold lasix, gently resuscitate Renally dose medications Treat for complicated UTI Fractional excretion of Urea: 73.56 (8) Bipolar disorder: Stable at this time no acute needs Continue outpatient medications (9) Pressure ulcer of BKA stump, stage 2: Wound care consult for continued treatment. 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 Wounds look good. (11) Hyponatremia: Acute hyponatremia- feel that this likely contributed to poor intake while continued diuresing. Euvolemic Hyponatremia. Spec Grav 1.013. Free water restrict, hold lasix, gently resuscitate with 0.9% saline Fractional excretion of Urea: 73.56 Admission and Anticipated Discharge Date Admission Date: August 15, 2020 Subjective 60 yo female reports feeling better. Wants to be discharged. She has been off oxygen supplementation today. Review of Systems Review of Systems: All systems reviewed & are unremarkable except as noted in HPI & below Physical Exam Physical Exam: General: lying in bed, off oxygen, comfortable Head: Normocephalic, atraumatic ENT: PERRL, EOMI, no pharyngeal exudate, mucous membranes dry Chest: scattered rhonchi throughout, diminished in bases, productive cough with thick white sputum. Cardiac: Regular rate and rhythm, grade II systolic murmur left sternal border, no JVD, normal peripheral pulses, good capillary refill. ECG reviewed, telemetry reviewed. Abdominal: Obese, normal bowel sounds all 4 quadrants, soft, nontender to palpation, no rebound, guarding or tenderness : Melchor to gravity draining slightly blood tinged urine. UA reviewed Extremities: right bka, left first metatarsal partial amputation, no peripheral edema or erythema, calf nontender to palpation Psych: Normal mood and affect Neuro: AAO x 2 (person and place), strength intact and rated 5/5 left 4/5 on right speech is slurred and slow, no peripheral sensory deficits Skin: clean and dry dressing to left metatarsal, good wound base, dressing to right stump intact no drainage, surrounding area of BKA is soft and not indurated. Results & Data Results & Data ([facility]) Vital Signs (Past 12 Hours) Vital Signs Temp Pulse Pulse Resp BP Pulse Ox 08/16/20 19:32 73 20 96 08/16/20 19:20 36.4 C L 74 19 122/76 96 08/16/20 15:53 36.5 C 74 19 142/88 H 98 08/16/20 15:18 72 19 99 08/16/20 11:49 36.5 C 66 18 131/83 100 08/16/20 11:40 64 18 98 08/16/20 10:56 65 PG Care Time/CCT Total # of Minutes Spent Total Time Spent with Patient: Total time spent is greater than 50% in coordination of care (as documented) at patient's floor/unit and/or counseling patient: Coding Level of Care Code 57004 Subseq Hosp Care Lvl 3 Diagnoses COVID-19 U07.1 Complicated UTI (urinary tract infection) N39.0 Hypertension associated with type 1 diabetes mellitus E10.59; I15.2 Mitral valve regurgitation I34.0 Cardiac valve disease etiology: etiology unspecified IDDM (insulin dependent diabetes mellitus) Heart failure I50.32 Heart failure chronicity: chronic Heart failure type: diastolic CKD (chronic kidney disease), stage III N18.30 Chronic kidney disease stage 3 subtype: unspecified whether 3a or 3b Bipolar disorder F31.9 Active/Remission status: currently active Psychotic features: without psychotic features Pressure ulcer of BKA stump, stage 2 T87.89; L89.892 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, limited to breakdown of skin E08.621; L97.521 Diabetic foot ulcer location: toe Hyponatremia E87.1 Time Spent (min) 35 (1) Heart failure Heart failure chronicity: chronic Heart failure type: diastolic Qualified Code(s): I50.32 - Chronic diastolic (congestive) heart failure (2) CKD (chronic kidney disease), stage III Chronic kidney disease stage 3 subtype: unspecified whether 3a or 3b Qualified Code(s): N18.30 - Chronic kidney disease, stage 3 unspecified (3) Bipolar disorder Active/Remission status: currently active Psychotic features: without psychotic features (4) Mitral valve regurgitation Cardiac valve disease etiology: etiology unspecified Qualified Code(s): I34.0 - Nonrheumatic mitral (valve) insufficiency (5) 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, limited to breakdown of skin Diabetic foot ulcer location: toe Qualified Code(s): E08.621 - Diabetes melli tus due to underlying condition with foot ulcer; L97.521 - Non-pressure chronic ulcer of other part of left foot limited to breakdown of skin
[2020-08-17] MEDS: Albuterol HFA 8 GM Inhaler (Combivent Respimat P&T Subs) INH SCH (07:37)
[2020-08-17] MEDS: Ipratropium HFA Inhaler (Combivent Respimat P&T Subs) INH SCH (07:37)
[2020-08-17 07:53] LABS: Basophils # (auto) 0.01 K/uL (0-0.2); Basophils % (auto) 0.1 %; Eosinophils # (auto) 0.02 K/uL (0-0.5); Eosinophils % (auto) 0.3 %; Hemoglobin 8.2 g/dL (12.0-16.0); Immature Granulocytes # (auto) 0.02 K/uL (0.00-0.02); Immature Granulocytes % (auto) 0.3 %; Lymphocytes # (auto) 0.52 K/uL (1.2-3.4); Lymphocytes % (auto) 7.5 %; Mean Corpuscular Hemoglobin 24.4 pg (25-34); Mean Corpuscular Hgb Conc 30.4 g/dL (32-36); Mean Corpuscular Volume 80.4 fL (80-100); Mean Platelet Volume 8.9 fL (7.4-10.4); Monocytes # (auto) 0.78 K/uL (0.11-0.59); Monocytes % (auto) 11.2 %; Neutrophils % (auto) 80.6 %; Nucleated RBC # (auto) 0.05 K/uL (0-0); Nucleated RBC % (auto) 0.8 %; Platelet Count 256 K/uL (130-400); RDW Coefficient of Variation 20.2 % (11.5-14.5); RDW Standard Deviation 56.4 fL (36.4-46.3); Red Blood Count 3.36 M/uL (4.2-5.4); White Blood Count 6.95 K/uL (4.8-10.8)
[2020-08-17 08:02] LABS: Prothrombin Time 67.2 Seconds (9.0-12.0)
[2020-08-17 08:11] LABS: Anisocytosis Present; Echinocytes 1+; Polychromasia 1+
[2020-08-17 08:12] LABS: BUN Creatinine Ratio 29.3 (10-20); Calcium 8.3 mg/dl (8.5-10.1); Est GFR (African American) 22.9; Est GFR (Non-African American) 19.7; Magnesium 2.7 mg/dl (1.8-2.4); Potassium 4.3 mmol/L (3.5-5.1)
[2020-08-17 08:14] LABS: Phosphorus 4.7 mg/dl (2.5-4.9)
[2020-08-17 08:50] LABS: INR 7.1 (0.9-1.1)
[2020-08-17] MEDS ORDERED: INSULIN GLARGINE SOLOSTAR 100 UNITS/ML 3 ML PEN SC SCH ×3 (09:00→21:00)
[2020-08-17] MEDS ORDERED: INSULIN HUMAN NPH SC SCH (09:00)
[2020-08-17] MEDS: DOCUSATE SODIUM 100 MG CAP PO SCH ×2 (09:13→21:40)
[2020-08-17] MEDS: UMECLIDINIUM/VILANTEROL 62.5/25MCG 7 PUFFS/INHALER INH SCH (09:13)
[2020-08-17] MEDS: SODIUM BICARBONATE 650 MG TAB PO SCH ×2 (09:14→21:41)
[2020-08-17] MEDS: FERROUS SULFATE 325 MG TAB PO SCH ×2 (09:14→21:41)
[2020-08-17] MEDS: DEXAMETHASONE SOD PHOSPHATE 6 MG in SYRINGE 0 ML IV SCH (09:14)
[2020-08-17] MEDS: ASPIRIN 81 MG ECTAB PO SCH (09:15)
[2020-08-17] MEDS: CHOLECALCIFEROL 1,000 UNITS 25 MCG TAB PO SCH (09:15)
[2020-08-17] MEDS: MULTIVITAMIN TAB PO SCH (09:15)
[2020-08-17] MEDS: LIDOCAINE 5% 1 PATCH TD SCH (09:16)
[2020-08-17] MEDS: POLYETHYLENE (MIRALAX) 17 GM PACK PO SCH (09:17)
--- NOTE | 2020-08-17 09:39 | Pharmacy Report ---
Pharmacy Glycemic Short Note 2 - Date of Service August 17, 2020 - Glycemic Short BSG Results (Last 24 hours): 08/16/20 08/16/20 08/16/20 11:45 16:15 16:17 Glucose POC Glucose 125 H 329 H* 362 H* 08/16/20 08/16/20 08/16/20 20:09 20:13 22:30 Glucose POC Glucose 454 H* 483 H* 453 H* 08/16/20 08/17/20 08/17/20 23:31 00:41 01:44 Glucose POC Glucose 406 H* 406 H* 376 H* 08/17/20 08/17/20 08/17/20 02:34 03:31 04:41 Glucose POC Glucose 338 H* 304 H* 233 H 08/17/20 08/17/20 08/17/20 05:33 06:50 07:13 Glucose 100 H POC Glucose 187 H 137 H 08/17/20 08/17/20 08/17/20 07:27 07:49 08:11 Glucose POC Glucose 103 H 85 89 08/17/20 08/17/20 08/17/20 08:35 08:38 09:17 Glucose POC Glucose 158 H 106 H 127 H OUTPATIENT ANTIDIABETIC REGIMEN: * Checked outpatient alf records and as of 07/30/20 - Lantus 20 units BID, Novolog 15 units TIDM + SSI * A1c = 7.2% (08/16/2020) RISK FACTORS FOR INSULIN RESISTANCE: * Covid-19 PNA with possible bacterial pna on cefepime * Dexamethasone 6 mg IV daily * Regular diet ASSESSMENT: 08/17: * Patient received 20 units of basal insulin + 21 units of correctional + insulin drip started last evening as BSGs in 400s * Insulin drip on hold this AM, previous rates up to ~7 units/hr. Patient admitted 08/15 with COVID pneumonia. Per ED note, patient at rehab facility prior to admission d/t suffering stroke last month. BSGs in 40s prior to arrival / given dextrose * Patient started on steroids on admission - insulin held since admission since BSGs lower. BSGs climbing quickly yesterday likely due to no insulin being given since admission and continued steroids * BSGs this AM 106 mg/dL - plan to continue to hold insulin for now and start NPH 0.4 units/kg to help cover steroids. Resume home Lantus dosing (per alf records) for this AM. Likely will need to scale back as BSGs low outpatient * Start CF/CR based upon total daily dosing outpatient stress of 2 PLAN FOR INPATIENT GLYCEMIC CONTROL: * Basal insulin * NPH 30 units daily (to cover dexamethasone) * Lantus 20 units daily * Lantus 10-20 units HS per scale * Bolus insulin * NovoLog per scale ACHS or Q6hrs while NPO * Goal Range: Low 110 mg/dL - High 140 mg/dL * Correction Factor: 15 mg/dL/unit * Nutritional / Prandial insulin per carb ratio of 1 unit per 5 grams CHO consumed PLAN FOR DISCHARGE: * To be determined
[2020-08-17] MEDS: FLUTICASONE FUROATE 200MCG 14 PUFFS/INHALER INH SCH (09:45)
[2020-08-17] MEDS: METOPROLOL SUCC 25MG EXT REL TAB PO SCH ×2 (09:46→21:40)
--- NOTE | 2020-08-17 11:01 | Nephrology Progress Note ---
Date of Service August 17, 2020 Assessment & Plan (1) Acute kidney injury: * LAZ due to dehydration related to outpatient diuretic therapy * Urine sediment c/w UTI * 08/26 renal US negative for hydronephrosis * Will resume 0.9NS IV at 80 cc/hr x 24 hrs (2) Chronic kidney disease: * Stage III CKD w/ baseline Cr ~ 2.2 * h/o nephrotic range proteinuria - likely underlying diabetic nephropathy * On NaHCO3 therapy to correct metabolic acidosis (3) Hyponatremia: * Correcting w/ IV hydration * Will resume 0.9NS administration * Will check Uosm * Monitor PRP (4) Complicated UTI (urinary tract infection): * Urine culture w/ Klebsiella sensitive to Cefepime * Continue Cefepime therapy (5) Diabetic ulcer of left foot associated with diabetes mellitus due to un derlying condition, limited to breakdown of skin: * Wound + for MRSA * Vanco 1750 mg IV x1 given at time of admission (6) COVID-19: * On IV Dexamethasone * RA SaO2 100% this am Admission and Anticipated Discharge Date Admission Date: August 15, 2020 Subjective Ms. Garay was seen & examined in her hospital room this morning. She is breathing comfortably on RA. She denies flank pain or uremic symptoms Review of Systems Constitutional: + weakness; no fever Eyes: no problem reported Ear, Nose, Mouth, Throat: no problem reported Respiratory: no dyspnea Cardiovascular: no chest pain, no palpitations and no edema Gastrointestinal: no abdominal pain, no nausea and no diarrhea/loose stools Genitourinary: no dysuria and no hematuria Musculoskeletal: no back pain Integumentary: no rash Neurologic: no dizziness Physical Exam Constitutional: + frail appearing (chronically ill appearing) Eyes: PERRL, conjunctivae normal, anicteric sclerae ENMT: Mouth: + dry oral mucous membranes Neck: trachea midline, no thyromegaly Respiratory: Auscultation: + rales Cardiovascular: RRR, no murmur, no edema Gastrointestinal (Abdomen): normal bowel sounds, soft, nontender, no hepatosplenomegaly Skin: + turgor decreased Neurologic: awake Results & Data ([facility]) Vital Signs (Past 12 Hours) Vital Signs Temp Pulse Resp BP Pulse Ox 08/17/20 09:10 34.9 C L 63 14 97/69 L 100 01/12/21 07:38 61 16 99 08/17/20 03:00 36.4 C L 59 L 20 116/74 98 08/16/20 23:32 36.4 C L 72 20 139/89 99 Laboratory Tests 08/17/20 08/17/20 07:13 07:13 WBC 6.95 Hgb 8.2 L Hct 27.0 L Plt Count 256 Sodium 128 L Potassium 4.3 Chloride 98 Carbon Dioxide 20 L BUN 76 H Creatinine 2.58 H D Glucose 100 H Laboratory Tests 08/17/20 07:13 INR 7.1 H* PG Care Time/CCT Total # of Minutes Spent Total Time Spent with Patient: Total time spent is greater than 50% in coordination of care (as documented) at patient's floor/unit and/or counseling patient: Coding Level of Care Code 57323 Subseq Hosp Care Lvl 3 Diagnoses Acute kidney injury N17.9 Chronic kidney disease N18.9 Chronic kidney disease stage: unspecified stage Hyponatremia E87.1 Complicated UTI (urinary tract infection) N39.0 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, limited to breakdown of skin E08.621; L97.521 Diabetic foot ulcer location: toe COVID-19 U07.1 (1) Chronic kidney disease Chronic kidney disease stage: unspecified stage Qualified Code(s): N18.9 - Chronic kidney disease, unspecified (2) 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
[2020-08-17] MEDS: SODIUM CHLORIDE 0.9% 1000ML 1,000 ML IV SCH ×2 (11:32→22:30)
[2020-08-17] MEDS: CEFEPIME 2,000 MG in SYRINGE 0 ML IV SCH (11:38)
[2020-08-17] MEDS: INSULIN ASPART 100 UNITS/ML 3 ML PEN SC SCH ×4 (12:57→22:04)
[2020-08-17] MEDS: oxyCODONE HCL IR 5 MG TAB (IMMEDIATE RELEASE) PO PRN (13:50)
--- NOTE | 2020-08-17 14:26 | Hospitalist Progress Note ---
Date of Service August 17, 2020 Assessment & Plan (1) COVID-19: Pneumonia due to coronavirus disease 2019. Hypoxic on arrival, started on dexamethasone in the ED. Possibly had metabolic encephalopathy on admission, but now appears at baseline. - Presently off oxygen supplementation - Albuterol/Atrovent PRN - Not a candidate for remdesivir secondary to renal function - Will stop dexamethasone given stable on room air and clear detriment of her blood sugars. (2) Complicated UTI (urinary tract infection): Abx started on admission, but patient not having any symptoms of a UTI. - Stop abx (3) Atrial fibrillation and flutter: Present at [facility] in 07/2020. - Continue warfarin as needed (INR presently 7.1) (4) Stroke: Was in [facility] for CVA, thought to be embolic from afib. - Continue ASA, statin - Monitor INR (5) Heart failure: Unclear whether this is systolic or diastolic. - Does not appear to be an acute exacerbation of heart failure - Hold Lasix - Echo pending (6) Hypertension associated with type 1 diabetes mellitus: BP today is 110/80. - Continue metoprolol - Hold Lasix (7) IDDM (insulin dependent diabetes mellitus): A1c was 7.2%. - Glycemic pharmacist consulted - Transitioning from insulin gtt to basal-bolus -> Sugars very labile with steroids. (8) Mitral valve regurgitation: Unclear where this diagnosis is coming from. - Continue Toprol XL 12.5 mg PO daily - Echo pending - Hold Lasix with for now (Home dose is 40 mg PO BID) - Patient appears euvolemic on exam. 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 - Hold Lasix - Renally dose medications - Cr presently 2.6 (10) Bipolar disorder: Stable at this time no acute needs. - Continue outpatient medications: chlorpromazine 150 mg PO HS PRN, melatonin PRN, tizanidine 2 mg PO Q8h PRN, ziprasidone 20 mg PO BID (11) Pressure ulcer of BKA stump, stage 2: Wound care consult for continued treatment. 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 - As above (13) DVT prophylaxis: On warfarin for afib - INR presently supratherapeutic. Admission and Anticipated Discharge Date Admission Date: August 15, 2020 Subjective Reports she feels well. Some constipation. Reports no fevers/chills, chest pain, shortness of breath, abdominal pain, nausea, or vomiting. Physical Exam Constitutional: WD/WN, vitals as above Eyes: EOM intact bilaterally; no conjunctival abnormality ENMT: external ear and nose normal, oropharynx normal Neck: trachea midline, no thyromegaly normal visual inspection Respiratory: normal respiratory effort, lungs clear to auscultation no respiratory distress Cardiovascular: RRR, no murmur, no edema Gastrointestinal (Abdomen): Inspection/Auscultation: abdomen normal to inspection; abdomen not distended Musculoskeletal: no cyanosis or clubbing, extremities motor strength 5/5 Skin: no rashes, warm and dry Neurologic: moves all extremities and awake Psychiatric: Orientation: alert, oriented to person and cooperative Results & Data Results & Data ([facility]) Vital Signs (Past 12 Hours) Vital Signs Temp Pulse Resp BP Pulse Ox 08/17/20 12:06 35.2 C L 66 18 109/73 100 08/17/20 09:10 34.9 C L 63 14 97/69 L 100 08/17/20 07:38 61 16 99 08/17/20 03:00 36.4 C L 59 L 20 116/74 98 PG Care Time/CCT Total # of Minutes Spent Total Time Spent with Patient: Total time spent is greater than 50% in coordination of care (as documented) at patient's floor/unit and/or counseling patient: Coding Level of Care Code 97207 Subseq Hosp Care Lvl 3 Diagnoses COVID-19 U07.1 Complicated UTI (urinary tract infection) N39.0 Atrial fibrillation and flutter I48.91; I48.92 Stroke I63.9 Heart failure I50.32 Heart failure type: diastolic Heart failure chronicity: chronic Hypertension associated with type 1 diabetes mellitus E10.59; I15.2 IDDM (insulin dependent diabetes mellitus) Mitral valve regurgitation I34.0 Cardiac valve disease etiology: etiology unspecified CKD (chronic kidney disease), stage III N18.30 Chronic kidney disease stage 3 subtype: unspecified whether 3a or 3b Bipolar disorder F31.9 Active/Remission status: currently active Psychotic features: without psychotic features Pressure ulcer of BKA stump, stage 2 T87.89; L89.892 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, limited to breakdown of skin E08.621; L97.521 Diabetic foot ulcer location: toe DVT prophylaxis Z29.9 (1) Mitral valve regurgitation Cardiac valve disease etiology: etiology unspecified Qualified Code(s): I34.0 - Nonrheumatic mitral (valve) insufficiency (2) Heart failure Heart failure type: diastolic Heart failure chronicity: chronic Qualified Code(s): I50.32 - Chronic diastolic (congestive) heart failure (3) CKD (chronic kidney disease), stage III Chronic kidney disease stage 3 subtype: unspecified whether 3a or 3b Qualified Code(s): N18.30 - Chronic kidney disease, stage 3 unspecified (4) Bipolar disorder Active/Remission status: currently active Psychotic features: without psychotic features (5) Diabetic ulcer of left foot associated with diabetes mellitus due to und erlying condition, limited to breakdown of skin Diabetic foot ulcer location: toe Qualified Code(s): E08.621 - Diabetes mellitus due to underlying condition with foot ulcer; L97.521 - Non-pressure chronic ulcer of other part of left foot limited to breakdown of skin
[2020-08-17 16:23] LABS: Appearance Urine Clear (Clear); Bilirubin Urine Negative (Negative); Blood Urine 2+ (Negative); Color Urine Yellow; Glucose Urine UA Negative (Negative); Ketones Urine Negative (Negative); Leukocyte Esterase Urine Trace (Negative); Nitrite Urine Negative (Negative); Protein Urine 2+ (Negative); Specific Gravity Urine 1.013 (1.000-1.030); Urobilinogen Urine Negative (Negative); pH Urine 5.5 (4.5-7.5)
--- NOTE | 2020-08-17 16:36 | Electrocardiogram Report ---
Test Reason : Blood Pressure : / mmHG Vent. Rate : 071 BPM Atrial Rate : 071 BPM P-R Int : 178 ms QRS Dur : 078 ms QT Int : 420 ms P-R-T Axes : 031 045 055 degrees QTc Int : 456 ms Normal sinus rhythm Normal ECG When compared with ECG of 16-AUG-2020 08:30, No significant change was found Confirmed by Abel Garay ([id number]) on 08/17/2020 4:36:21 PM Referred By: [facility] Confirmed By:Abel Garay
[2020-08-17 16:37] LABS: Epithelial Cell Urine Auto 0-5 /lpf (0-5); RBC Urine Automated 0-4 /hpf (0-4)
[2020-08-17 16:38] LABS: Cast Urine Automated 0 /lpf (0-5)
[2020-08-17] MEDS: tiZANidine HCL 4 MG TABLET PO PRN (16:38)
[2020-08-17 16:39] LABS: Bacteria Urine Automated Negative (Negative); Calcium Oxalate Crystals Urine Present (None Prsent)
[2020-08-17] MEDS: guaiFENesin SUGAR FREE 100 MG/5 ML UDC PO PRN (19:32)
[2020-08-17] MEDS: ATORVASTATIN 40 MG TAB PO SCH (21:41)
[2020-08-17] MEDS: MELATONIN 3 MG TAB PO PRN (21:55)
[2020-08-17] MEDS: INSULIN GLARGINE SOLOSTAR 100 UNITS/ML 3 ML PEN SC SCH (22:04)
[2020-08-17] MEDS: DEXTROSE 50% 50 ML SYRINGE IV PRN (23:32)
[2020-08-18] MEDS: oxyCODONE HCL IR 5 MG TAB (IMMEDIATE RELEASE) PO PRN ×4 (01:12→22:06)
[2020-08-18] MEDS: DEXTROSE 50% 50 ML SYRINGE IV PRN (03:40)
[2020-08-18] MEDS ORDERED: CARBOHYDRATES FOR HYPOGLYCEMIA PO PRN (04:32)
[2020-08-18] MEDS ORDERED: PHARMACY GLYCEMIC MGMT CONSULT STA (04:32)
[2020-08-18] MEDS ORDERED: DEXTROSE 50% 50 ML SYRINGE IV PRN (04:32)
[2020-08-18] MEDS ORDERED: GLUCOSE 10 TABS/TUBE PO PRN (04:32)
[2020-08-18] MEDS ORDERED: GLUCAGON FOR INJ 1 MG VIAL SQ PRN (04:32)
[2020-08-18] MEDS ORDERED: GLUCOSE 40% GEL 15 GM TUBE PO PRN (04:32)
[2020-08-18] MEDS ORDERED: INSULIN ASPART 100 UNITS/ML 3 ML PEN SC SCH (07:30)
[2020-08-18 08:35] LABS: Basophils # (auto) 0.01 K/uL (0-0.2); Basophils % (auto) 0.1 %; Eosinophils # (auto) 0.04 K/uL (0-0.5); Eosinophils % (auto) 0.5 %; Hematocrit (blood only) 28.6 % (37-47); Hemoglobin 8.8 g/dL (12.0-16.0); Immature Granulocytes # (auto) 0.03 K/uL (0.00-0.02); Immature Granulocytes % (auto) 0.3 %; Lymphocytes # (auto) 0.91 K/uL (1.2-3.4); Lymphocytes % (auto) 10.4 %; Mean Corpuscular Hemoglobin 24.9 pg (25-34); Mean Corpuscular Hgb Conc 30.8 g/dL (32-36); Mean Platelet Volume 9.4 fL (7.4-10.4); Monocytes # (auto) 0.56 K/uL (0.11-0.59); Monocytes % (auto) 6.4 %; Neutrophils # (auto) 7.22 K/uL (1.4-6.5); Neutrophils % (auto) 82.3 %; Nucleated RBC # (auto) 0.04 K/uL (0-0); Nucleated RBC % (auto) 0.4 %; Platelet Count 246 K/uL (130-400); RDW Standard Deviation 56.8 fL (36.4-46.3); Red Blood Count 3.53 M/uL (4.2-5.4); White Blood Count 8.77 K/uL (4.8-10.8)
[2020-08-18 08:45] LABS: INR 3.3 (0.9-1.1); Prothrombin Time 32.6 Seconds (9.0-12.0)
[2020-08-18 08:53] LABS: Echinocytes 1+; Ovalocytes 1+
[2020-08-18] MEDS ORDERED: INSULIN GLARGINE SOLOSTAR 100 UNITS/ML 3 ML PEN SC SCH ×2 (09:00)
[2020-08-18 09:05] LABS: BUN Creatinine Ratio 30.5 (10-20); Calcium 8.2 mg/dl (8.5-10.1); Creatinine Clr Calc Pharmacy 29.7 ml/min; Est GFR (African American) 28.7; Est GFR (Non-African American) 24.7; Potassium 4.4 mmol/L (3.5-5.1)
[2020-08-18] MEDS: UMECLIDINIUM/VILANTEROL 62.5/25MCG 7 PUFFS/INHALER INH SCH (09:11)
[2020-08-18] MEDS: LIDOCAINE 5% 1 PATCH TD SCH (09:12)
[2020-08-18] MEDS: METOPROLOL SUCC 25MG EXT REL TAB PO SCH ×2 (09:13→22:07)
[2020-08-18] MEDS: MULTIVITAMIN TAB PO SCH (09:13)
[2020-08-18] MEDS: ASPIRIN 81 MG ECTAB PO SCH (09:13)
[2020-08-18] MEDS: DOCUSATE SODIUM 100 MG CAP PO SCH ×2 (09:14→22:06)
[2020-08-18] MEDS: FERROUS SULFATE 325 MG TAB PO SCH ×2 (09:14→22:06)
[2020-08-18] MEDS: SODIUM BICARBONATE 650 MG TAB PO SCH ×2 (09:14→22:06)
[2020-08-18] MEDS: POLYETHYLENE (MIRALAX) 17 GM PACK PO SCH (09:14)
[2020-08-18] MEDS: FLUTICASONE FUROATE 200MCG 14 PUFFS/INHALER INH SCH (09:14)
[2020-08-18] MEDS: CHOLECALCIFEROL 1,000 UNITS 25 MCG TAB PO SCH (09:16)
[2020-08-18] MEDS: INSULIN ASPART 100 UNITS/ML 3 ML PEN SC SCH ×4 (09:18→21:30)
--- NOTE | 2020-08-18 10:34 | Nephrology Progress Note ---
Date of Service August 18, 2020 Assessment & Plan (1) Acute kidney injury: * LAZ due to dehydration related to outpatient diuretic therapy - resolved * Urine sediment c/w UTI * 08/26 renal US negative for hydronephrosis * No further Nephrology evaluation indicated at this time. Will sign off. Please call if further assistance is needed (2) Chronic kidney disease: * Stage III CKD w/ baseline Cr ~ 2.2 * h/o nephrotic range proteinuria - likely underlying diabetic nephropathy * On NaHCO3 therapy to correct metabolic acidosis (3) Hyponatremia: * Improved following IV hydration (4) Complicated UTI (urinary tract infection): * Urine culture w/ Klebsiella sensitive to Cefepime * Continue Cefepime therapy (5) 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, limited to breakdown of skin: * Wound + for MRSA * Vanco 1750 mg IV x1 given at time of admission (6) COVID-19: * On IV Dexamethasone * RA SaO2 97% this am Admission and Anticipated Discharge Date Admission Date: August 15, 2020 Subjective Ms. Garay was seen & examined in her hospital room this morning. She is breathing comfortably on RA. She denies flank pain or uremic symptoms Review of Systems Constitutional: + weakness; no fever Eyes: no problem reported Ear, Nose, Mouth, Throat: no problem reported Respiratory: no dyspnea Cardiovascular: no chest pain, no palpitations and no edema Gastrointestinal: no abdominal pain Genitourinary: no hematuria Musculoskeletal: no back pain Neurologic: no confusion Physical Exam Constitutional: + frail appearing (chronically ill appearing) Eyes: PERRL, conjunctivae normal, anicteric sclerae ENMT: Mouth: + dry oral mucous membranes Neck: trachea midline, no thyromegaly Respiratory: Auscultation: + rales Cardiovascular: RRR, no murmur, no edema Gastrointestinal (Abdomen): normal bowel sounds, soft, nontender, no hepatosplenomegaly Skin: + turgor decreased Neurologic: awake Results & Data ([facility]) Vital Signs (Past 12 Hours) Vital Signs Temp Pulse Pulse Resp BP Pulse Ox 08/18/20 07:46 36.3 C L 84 20 153/106 H 97 08/18/20 05:25 73 08/18/20 03:42 35.7 C L 74 18 141/90 H 98 08/17/20 22:58 36.5 C 69 16 142/92 H 99 Laboratory Tests 08/18/20 08/18/20 07:26 07:26 WBC 8.77 Hgb 8.8 L Hct 28.6 L Plt Count 246 Sodium 130 L Potassium 4.4 Chloride 103 Carbon Dioxide 17 L BUN 65 H Creatinine 2.14 H D Glucose 110 H PG Care Time/CCT Total # of Minutes Spent Total Time Spent with Patient: Total time spent is greater than 50% in coordination of care (as documented) at patient's floor/unit and/or counseling patient: Coding Level of Care Code 97001 Subseq Hosp Care Lvl 3 Diagnoses Acute kidney injury N17.9 Chronic kidney disease N18.9 Chronic kidney disease stage: unspecified stage Hyponatremia E87.1 Complicated UTI (urinary tract infection) N39.0 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, limited to breakdown of skin E08.621; L97.521 Diabetic foot ulcer location: toe COVID-19 U07.1 (1) Chronic kidney disease Chronic kidney disease stage: unspecified stage Qualified Code(s): N18.9 - Chronic kidney disease, unspecified (2) Diabetic ulcer of left foot associated with diabetes mellitus due to un derlying condition, limited to breakdown of skin Diabetic foot ulcer location: toe Qualified Code(s): E08.621 - Diabetes mellitus due to underlying condition with foot ulcer; L97.521 - Non-pressure chronic ulcer of other part of left foot limited to breakdown of skin
--- NOTE | 2020-08-18 15:19 | Pharmacy Report ---
Pharmacy Glycemic Short Note 2 - Date of Service August 18, 2020 - Glycemic Short BSG Results (Last 24 hours): 08/17/20 08/17/20 08/17/20 15:50 17:43 18:40 Glucose POC Glucose 224 H 238 H 218 H 08/17/20 08/17/20 08/17/20 19:47 20:59 22:09 Glucose POC Glucose 238 H 189 H 163 H 08/17/20 08/17/20 08/17/20 22:56 23:24 23:44 Glucose POC Glucose 117 H 115 H 181 H 08/18/20 08/18/20 08/18/20 00:17 01:12 02:11 Glucose POC Glucose 141 H 120 H 134 H 08/18/20 08/18/20 08/18/20 03:24 04:05 07:26 Glucose 110 H POC Glucose 106 H 170 H 08/18/20 08/18/20 07:56 12:06 Glucose POC Glucose 128 H 208 H OUTPATIENT ANTIDIABETIC REGIMEN: * Checked outpatient senior living records and as of 07/30/20 - Lantus 20 units BID, Novolog 15 units TIDM + SSI * A1c = 7.2% (08/16/2020) RISK FACTORS FOR INSULIN RESISTANCE: * Covid-19 PNA with possible bacterial pna on cefepime * Dexamethasone 6 mg IV daily * Regular diet ASSESSMENT: 08/18: * Patient received total around 157 units of insulin yesterday: 65 units of basal + 20 units bolus in addition to average of 72 units of regular insulin from insulin drip over 24 hrs. * Dexamethasone was discontinued after dose yesterday. * Fasting BSG was 128 mg/dl. Lantus dose was increased slightly this AM, will continue HS Lantus on a BSG scale. * Novolog parameters were continued. 08/17: * Patient received 20 units of basal insulin + 21 units of correctional + insulin drip started last evening as BSGs in 400s * Insulin drip on hold this AM, previous rates up to ~7 units/hr. Patient admitted 08/15 with COVID pneumonia. Per ED note, patient at rehab facility prior to admission d/t suffering stroke last month. BSGs in 40s prior to arrival / given dextrose * Patient started on steroids on admission - insulin held since admission since BSGs lower. BSGs climbing quickly yesterday likely due to no insulin being given since admission and continued steroids * BSGs this AM 106 mg/dL - plan to continue to hold insulin for now and start NPH 0.4 units/kg to help cover steroids. Resume home Lantus dosing (per senior living records) for this AM. Likely will need to scale back as BSGs low outpatient * Start CF/CR based upon total daily dosing outpatient stress of 2 PLAN FOR INPATIENT GLYCEMIC CONTROL: * Basal insulin: increased * Lantus 25 units qAM * Lantus 15-25 units HS per scale * Bolus insulin: continued * NovoLog per scale ACHS or Q6hrs while NPO * Goal Range: Low 110 mg/dL - High 140 mg/dL * Correction Factor: 15 mg/dL/unit * Nutritional / Prandial insulin per carb ratio of 1 unit per 5 grams CHO consumed PLAN FOR DISCHARGE: * To be determined
--- NOTE | 2020-08-18 15:55 | Hospitalist Progress Note ---
Date of Service August 18, 2020 Assessment & Plan (1) COVID-19: Pneumonia due to coronavirus disease 2019. Hypoxic on arrival, started on dexamethasone in the ED. Possibly had metabolic encephalopathy on admission, but now appears at baseline. - Presently off oxygen supplementation - Albuterol/Atrovent PRN - Not a candidate for remdesivir secondary to renal function - Stopped dexamethasone on 08/17 given stable on room air and clear detriment of her blood sugars. Still on room air. (2) Complicated UTI (urinary tract infection): Abx started on admission, but patient not having any symptoms of a UTI. - Stopped abx (3) Atrial fibrillation and flutter: Present at [facility] in 07/2020. - Continue warfarin as needed (INR presently 3.3 on 08/18) (4) Stroke: Was in [facility] for CVA, thought to be embolic from afib. - Continue ASA, statin - Monitor INR (5) Heart failure: Unclear whether this is systolic or diastolic. - Does not appear to be an acute exacerbation of heart failure - Hold Lasix - Echo pending - Not being done due to Covid status (6) Hypertension associated with type 1 diabetes mellitus: BP today is 160/100. - Continue metoprolol - Hold Lasix (7) IDDM (insulin dependent diabetes mellitus): A1c was 7.2%. - Glycemic pharmacist consulted - Basal/bolus now - Sugars under better control off steroids - 100 - 200. (8) Mitral valve regurgitation: Unclear where this diagnosis is coming from. - Continue Toprol XL 12.5 mg PO daily - Echo pending as above - Hold Lasix with for now (Home dose is 40 mg PO BID) - Patient appears euvolemic on exam. 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 - Hold Lasix - Renally dose medications - Cr presently 2.15; at baseline as of 08/18 (10) Bipolar disorder: Stable at this time no acute needs. - Continue outpatient medications: chlorpromazine 150 mg PO HS PRN, melatonin PRN, tizanidine 2 mg PO Q8h PRN, ziprasidone 20 mg PO BID (11) Pressure ulcer of BKA stump, stage 2: Wound care consult for continued treatment. Looked at wound on 08/18; no erythema or warmth. Do not feel it is infected. 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 - As above (13) DVT prophylaxis: On warfarin for afib - INR presently supratherapeutic. Admission and Anticipated Discharge Date Admission Date: August 15, 2020 Subjective Notes some left tooth pain in the upper teeth as well as leg and buttock pain. Reports no fevers/chills, chest pain, shortness of breath, abdominal pain, nausea, or vomiting. Physical Exam Constitutional: WD/WN, vitals as above Eyes: EOM intact bilaterally; no conjunctival abnormality ENMT: Mouth: + poor dentition and + chipped teeth (Upper left side) Neck: trachea midline, no thyromegaly normal visual inspection Respiratory: normal respiratory effort, lungs clear to auscultation no respiratory distress Cardiovascular: Rate/Rhythm: regular rhythm and + tachycardic Heart Sounds: normal S1 and normal S2 Extremities: no edema Gastrointestinal (Abdomen): Inspection/Auscultation: abdomen normal to inspection; abdomen not distended Musculoskeletal: no cyanosis or clubbing, extremities motor strength 5/5 Skin: no rashes, warm and dry Neurologic: moves all extremities and awake Psychiatric: Orientation: alert, oriented to person and cooperative Results & Data Results & Data ([facility]) Vital Signs (Past 12 Hours) Vital Signs Temp Pulse Pulse Resp BP Pulse Ox 08/18/20 15:23 36.9 C 99 H 24 161/112 H 97 08/18/20 11:14 36.5 C 95 H 19 147/84 H 97 08/18/20 07:46 36.3 C L 84 20 153/106 H 97 08/18/20 05:25 73 PG Care Time/CCT Total # of Minutes Spent Total Time Spent with Patient: Total time spent is greater than 50% in coordination of care (as documented) at patient's floor/unit and/or counseling patient: Coding Level of Care Code 81172 Subseq Hosp Care Lvl 3 Diagnoses COVID-19 U07.1 Complicated UTI (urinary tract infection) N39.0 Atrial fibrillation and flutter I48.91; I48.92 Stroke I63.9 Heart failure I50.32 Heart failure type: diastolic Heart failure chronicity: chronic Hypertension associated with type 1 diabetes mellitus E10.59; I15.2 IDDM (insulin dependent diabetes mellitus) Mitral valve regurgitation I34.0 Cardiac valve disease etiology: etiology unspecified CKD (chronic kidney disease), stage III N18.30 Chronic kidney disease stage 3 subtype: unspecified whether 3a or 3b Bipolar disorder F31.9 Active/Remission status: currently active Psychotic features: without psychotic features Pressure ulcer of BKA stump, stage 2 T87.89; L89.892 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, limited to breakdown of skin E08.621; L97.521 Diabetic foot ulcer location: toe DVT prophylaxis Z29.9 (1) Heart failure Heart failure type: diastolic Heart failure chronicity: chronic Qualified Code(s): I50.32 - Chronic diastolic (congestive) heart failure (2) Mitral valve regurgitation Cardiac valve disease etiology: etiology unspecified Qualified Code(s): I34.0 - Nonrheumatic mitral (valve) insufficiency (3) CKD (chronic kidney disease), stage III Chronic kidney disease stage 3 subtype: unspecified whether 3a or 3b Qualified Code(s): N18.30 - Chronic kidney disease, stage 3 unspecified (4) Bipolar disorder Active/Remission status: currently active Psychotic features: without psychotic features (5) 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
[2020-08-18] MEDS: tiZANidine HCL 4 MG TABLET PO PRN (18:25)
[2020-08-18] MEDS ORDERED: OXYMETAZOLINE 0.05% 30 ML BTL NAE PRN (19:21)
[2020-08-18] MEDS ORDERED: OXYMETAZOLINE 0.05% 30 ML BTL NAE ONE (20:00)
--- NOTE | 2020-08-18 20:34 | XRay Report ---
XR chest 1V portable CLINICAL HISTORY: Increased rhonchi, increased hypoxemia COMPARISON STUDY: 08/15/2020 FINDINGS: The heart is enlarged. There is mild hilar fullness unchanged from the prior study. There a re diffuse bilateral pulmonary airspace opacities. A multifocal pneumonia is favored.[ IMPRESSION: Interstitial thickening and multifocal airspace opacities similar to the prior study cons istent with a multifocal pneumonia ACT 112: Negative or not required by law. Electronically signed by: Lowell Estrada M.D. 08/18/2020 8:33 PM
[2020-08-18] MEDS: INSULIN GLARGINE SOLOSTAR 100 UNITS/ML 3 ML PEN SC SCH (21:30)
[2020-08-18] MEDS: ATORVASTATIN 40 MG TAB PO SCH (22:06)
[2020-08-18] MEDS: MELATONIN 3 MG TAB PO PRN (22:07)
[2020-08-18] MEDS: SODIUM CHLORIDE 0.65% NA SOLN 45 ML (OCEAN) NAE SCH (22:08)
[2020-08-18] MEDS: guaiFENesin SUGAR FREE 100 MG/5 ML UDC PO PRN (22:08)
[2020-08-19] MEDS: oxyCODONE HCL IR 5 MG TAB (IMMEDIATE RELEASE) PO PRN ×3 (05:25→19:02)
[2020-08-19] MEDS: INSULIN REGULAR 250 UNITS in SODIUM CHLORIDE 0.9% 247.5 ML IV SCH (07:18)
[2020-08-19] MEDS: LIDOCAINE 5% 1 PATCH TD SCH (07:49)
[2020-08-19] MEDS: FLUTICASONE FUROATE 200MCG 14 PUFFS/INHALER INH SCH (07:49)
[2020-08-19] MEDS: SODIUM CHLORIDE 0.65% NA SOLN 45 ML (OCEAN) NAE SCH ×3 (07:50→21:11)
[2020-08-19] MEDS: POLYETHYLENE (MIRALAX) 17 GM PACK PO SCH (07:50)
[2020-08-19] MEDS: CHOLECALCIFEROL 1,000 UNITS 25 MCG TAB PO SCH (07:50)
[2020-08-19] MEDS: METOPROLOL SUCC 25MG EXT REL TAB PO SCH ×2 (07:50→21:11)
[2020-08-19] MEDS: FERROUS SULFATE 325 MG TAB PO SCH ×2 (07:51→21:11)
[2020-08-19] MEDS: SODIUM BICARBONATE 650 MG TAB PO SCH ×2 (07:51→21:10)
[2020-08-19] MEDS: ASPIRIN 81 MG ECTAB PO SCH (07:52)
[2020-08-19] MEDS: DOCUSATE SODIUM 100 MG CAP PO SCH ×2 (07:52→21:21)
[2020-08-19] MEDS: MULTIVITAMIN TAB PO SCH (07:53)
[2020-08-19] MEDS: INSULIN ASPART 100 UNITS/ML 3 ML PEN SC SCH ×5 (08:02→23:22)
[2020-08-19 08:20] LABS: Hematocrit (blood only) 27.1 % (37-47); Hemoglobin 8.4 g/dL (12.0-16.0); Mean Corpuscular Hemoglobin 24.9 pg (25-34); Mean Corpuscular Volume 80.4 fL (80-100); Mean Platelet Volume 9.1 fL (7.4-10.4); Platelet Count 222 K/uL (130-400); RDW Coefficient of Variation 21.4 % (11.5-14.5); RDW Standard Deviation 57.6 fL (36.4-46.3); Red Blood Count 3.37 M/uL (4.2-5.4); White Blood Count 7.78 K/uL (4.8-10.8)
[2020-08-19 08:38] LABS: INR 1.9 (0.9-1.1); Prothrombin Time 19.3 Seconds (9.0-12.0)
[2020-08-19] MEDS ORDERED: INSULIN GLARGINE SOLOSTAR 100 UNITS/ML 3 ML PEN SC ONE (09:00)
[2020-08-19 09:02] LABS: Albumin Level 2.2 gm/dl (3.4-5.0); BUN Creatinine Ratio 27.9 (10-20); Creatinine Clr Calc Pharmacy 33.8 ml/min; Est GFR (African American) 33.5; Est GFR (Non-African American) 28.9; Magnesium 2.3 mg/dl (1.8-2.4); Potassium 4.2 mmol/L (3.5-5.1)
[2020-08-19 09:05] LABS: Albumin Globulin Ratio 0.4 (0.9-2); Bilirubin,Total 0.5 mg/dl (0.2-1); Total Protein 7.2 gm/dl (6.4-8.2)
[2020-08-19] MEDS: UMECLIDINIUM/VILANTEROL 62.5/25MCG 7 PUFFS/INHALER INH SCH (09:17)
--- NOTE | 2020-08-19 11:13 | Pharmacy Report ---
Pharmacy Glycemic Short Note 2 - Date of Service August 19, 2020 - Glycemic Short BSG Results (Last 24 hours): 08/18/20 08/18/20 08/18/20 12:06 17:00 20:53 Glucose POC Glucose 208 H 128 H 152 H 08/19/20 08/19/20 08/19/20 07:30 07:31 07:49 Glucose 70 POC Glucose 55 L* 53 L* 08/19/20 07:59 Glucose POC Glucose 95 OUTPATIENT ANTIDIABETIC REGIMEN: * Checked outpatient custodial records and as of 07/30/20 - Lantus 20 units BID, Novolog 15 units TIDM + SSI * A1c = 7.2% (08/16/2020) RISK FACTORS FOR INSULIN RESISTANCE: * Covid-19 PNA with possible bacterial pna on cefepime * Dexamethasone 6 mg IV daily * Regular diet ASSESSMENT: 08/19: * Patient received total of 72 units of insulin yesterday; 40 units of basal + 32 units bolus. * She was hypoglycemic this AM with fasting BSG = 55 mg/dl. This was most likely caused by the basal insulin. Reduced Lantus dosing today. * Post prandial BSG other than lunch yesterday was near goal. Given patient was hypoglycemic this AM, also reduced Novolog parameters. 08/18: * Patient received total around 157 units of insulin yesterday: 65 units of basal + 20 units bolus in addition to average of 72 units of regular insulin from insulin drip over 24 hrs. * Dexamethasone was discontinued after dose yesterday. * Fasting BSG was 128 mg/dl. Lantus dose was increased slightly this AM, will continue HS Lantus on a BSG scale. * Novolog parameters were continued. PLAN FOR INPATIENT GLYCEMIC CONTROL: * Basal insulin: decreased * Lantus 10 units today AM * Lantus 10-15 units HS per scale * Bolus insulin: decreased * NovoLog per scale ACHS or Q6hrs while NPO * Goal Range: Low 110 mg/dL - High 140 mg/dL * Correction Factor: 20 mg/dL/unit * Nutritional / Prandial insulin per carb ratio of 1 unit per 9 grams CHO consumed PLAN FOR DISCHARGE: * HbA1c = 7.2% on 08/16/20. * Recently reported that per custodial records, patient was experiencing hypoglycemia. * Recommend decreasing Lantus dosing to between 10-15 units BID and continue Novolog sliding scale with meals and with BSG checks four times a day.
[2020-08-19 11:14] LABS: Phosphorus 3.6 mg/dl (2.5-4.9)
--- NOTE | 2020-08-19 11:19 | CT Scan Report ---
CT facial bones wo con CLINICAL HISTORY: 60 years-old Female presenting with Left upper tooth pain, abscess?. Acute pain of the left maxilla with possible odontogenic disease versus abscess. COMPARISON STUDY: None TECHNIQUE: High-resolution CT scan of the facial bones is performed. Images are reviewed in the axia l, sagittal, and coronal planes. IV contrast was not administered for this examination. A dose lower ing technique was utilized adhering to the principles of ALARA. CT DOSE: 617.58 mGycm FINDINGS: Prior bilateral lens repair. There is no acute abnormality identified within the imaged intracranial structures. Calcifications of the falx cerebri. There is mild subcutaneous edema of the lateral left cheek. No discrete hematoma or opaque foreign body. Degenerative changes are noted involving the imag ed cervical spine. Mastoid air cells and middle ear cavities are clear. Moderate mucoperiosteal thick ening with partially calcified mucosal debris within the right maxillary sinus compatible with chroni c sinusitis. There is mild mucoperiosteal thickening of the left maxillary sinus. Postoperative feldman es of prior right maxillary antrostomy with partial ethmoidectomy. Patent sinus outflow tracts. No ac levelock facial bone fracture. The patient has numerous missing teeth. Numerous dental caries are also pre sent. Moderate sized periapical cysts are noted involving the left maxillary first and second molars. No adjacent soft tissue abscess identified. Study is mildly limited secondary to streak artifact fro m dental amalgam hardware. No adenopathy. IMPRESSION: 1. Mild nonspecific subcutaneous edema of the lateral left cheek. This would favor posttraumatic etio logy rather than infectious or inflammatory. 2. Odontogenic disease as above includes moderate sized periapical cysts of the left maxillary first and second molars. No soft tissue abscess identified. 3. Chronic paranasal sinus disease with postoperative changes as above. ACT 112: Negative or not required by law. The above report was generated using voice recognition software. It may contain grammatical, syntax o r spelling errors. Electronically signed by: Barry Sevilla M.D. 08/19/2020 11:18 AM
--- NOTE | 2020-08-19 14:46 | Hospitalist Progress Note ---
Date of Service August 19, 2020 Assessment & Plan (1) COVID-19: Pneumonia due to coronavirus disease 2019. Hypoxic on arrival, started on dexamethasone in the ED. Possibly had metabolic encephalopathy on admission, but now appears at baseline. - Presently off oxygen supplementation - Albuterol/Atrovent PRN - Not a candidate for remdesivir secondary to renal function - Stopped dexamethasone on 08/17 given stable on room air and clear detriment of her blood sugars. Still on room air, though CXR clearly shows pneumonia. (2) Complicated UTI (urinary tract infection): Abx started on admission, but patient not having any symptoms of a UTI. Asymptomatic bacteruria. - Stopped abx (3) Atrial fibrillation and flutter: Present at [facility] in 07/2020. - Continue warfarin as needed (INR presently 1.9 on 08/19) - Will restart at lower dose given high INR on presentation. (4) Stroke: Was in [facility] for CVA, thought to be embolic from afib. - Continue ASA, statin - Monitor INR (5) Heart failure: Unclear whether this is systolic or diastolic. - Does not appear to be an acute exacerbation of heart failure - Hold Lasix - Echo pending - Not being done due to Covid status - Appears euvolemic today. (6) Hypertension associated with type 1 diabetes mellitus: BP today is 150/100. - Continue metoprolol - Hold Lasix (7) IDDM (insulin dependent diabetes mellitus): A1c was 7.2%. - Glycemic pharmacist consulted - Basal/bolus now - Sugars low this morning after off steroids. (8) Mitral valve regurgitation: Unclear where this diagnosis is coming from. - Continue Toprol XL 12.5 mg PO daily - Echo pending as above - Hold Lasix with for now (Home dose is 40 mg PO BID) - Patient appears euvolemic on exam. 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 - Hold Lasix - Renally dose medications - Cr presently 1.8; at baseline as of 08/19 (10) Bipolar disorder: Stable at this time no acute needs. - Continue outpatient medications: chlorpromazine 150 mg PO HS PRN, melatonin PRN, tizanidine 2 mg PO Q8h PRN, ziprasidone 20 mg PO BID (11) Pressure ulcer of BKA stump, stage 2: Wound care consult for continued treatment. Looked at wound on 08/18; no erythema or warmth. Do not feel it is infected. 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 - As above (13) DVT prophylaxis: On warfarin for afib. Admission and Anticipated Discharge Date Admission Date: August 15, 2020 Subjective Doing better today. No major issues. Less shortness of breath today. Less nasal congestion. Reports no fevers/chills, chest pain, shortness of breath, abdominal pain, nausea, or vomiting. Physical Exam Constitutional: WD/WN, vitals as above Eyes: EOM intact bilaterally; no conjunctival abnormality ENMT: external ear and nose normal, oropharynx normal Mouth: + poor dentition and + chipped teeth (Upper left side) Neck: trachea midline, no thyromegaly normal visual inspection Respiratory: normal respiratory effort, lungs clear to auscultation no respiratory distress Cardiovascular: RRR, no murmur, no edema Rate/Rhythm: regular rhythm and + tachycardic Heart Sounds: normal S1 and normal S2 Extremities: no edema Gastrointestinal (Abdomen): Inspection/Auscultation: abdomen normal to inspection; abdomen not distended Musculoskeletal: no cyanosis or clubbing, extremities motor strength 5/5 Skin: no rashes, warm and dry Neurologic: moves all extremities and awake Psychiatric: Orientation: alert, oriented to person and cooperative Results & Data Results & Data ([facility]) Vital Signs (Past 12 Hours) Vital Signs Temp Pulse Resp BP Pulse Ox 08/19/20 12:00 36.4 C 99 H 12 149/97 H 97 08/19/20 09:24 36.8 C 103 H 12 149/96 H 94 08/19/20 04:00 37 C 102 H 20 147/80 H 93 PG Care Time/CCT Total # of Minutes Spent Total Time Spent with Patient: Total time spent is greater than 50% in coordination of care (as documented) at patient's floor/unit and/or counseling patient: Coding Level of Care Code 23394 Subseq Hosp Care Lvl 2 Diagnoses COVID-19 U07.1 Complicated UTI (urinary tract infection) N39.0 Atrial fibrillation and flutter I48.91; I48.92 Stroke I63.9 Heart failure I50.32 Heart failure type: diastolic Heart failure chronicity: chronic Hypertension associated with type 1 diabetes mellitus E10.59; I15.2 IDDM (insulin dependent diabetes mellitus) Mitral valve regurgitation I34.0 Cardiac valve disease etiology: etiology unspecified CKD (chronic kidney disease), stage III N18.30 Chronic kidney disease stage 3 subtype: unspecified whether 3a or 3b Bipolar disorder F31.9 Active/Remission status: currently active Psychotic features: without psychotic features Pressure ulcer of BKA stump, stage 2 T87.89; L89.892 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, limited to breakdown of skin E08.621; L97.521 Diabetic foot ulcer location: toe DVT prophylaxis Z29.9 (1) Heart failure Heart failure type: diastolic Heart failure chronicity: chronic Qualified Code(s): I50.32 - Chronic diastolic (congestive) heart failure (2) Mitral valve regurgitation Cardiac valve disease etiology: etiology unspecified Qualified Code(s): I34.0 - Nonrheumatic mitral (valve) insufficiency (3) CKD (chronic kidney disease), stage III Chronic kidney disease stage 3 subtype: unspecified whether 3a or 3b Qualified Code(s): N18.30 - Chronic kidney disease, stage 3 unspecified (4) Bipolar disorder Active/Remission status: currently active Psychotic features: without psychotic features (5) 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
[2020-08-19] MEDS: WARFARIN SOD 2 MG TAB PO SCH (16:00)
[2020-08-19] MEDS: ACETAMINOPHEN 325 MG TAB PO PRN (17:23)
[2020-08-19] MEDS: ATORVASTATIN 40 MG TAB PO SCH (21:11)
[2020-08-19] MEDS: INSULIN GLARGINE SOLOSTAR 100 UNITS/ML 3 ML PEN SC SCH (21:22)
[2020-08-20] MEDS: oxyCODONE HCL IR 5 MG TAB (IMMEDIATE RELEASE) PO PRN ×4 (01:06→21:19)
[2020-08-20] MEDS: tiZANidine HCL 4 MG TABLET PO PRN ×3 (01:07→18:45)
[2020-08-20 07:59] LABS: Hematocrit (blood only) 23.8 % (37-47); Hemoglobin 7.4 g/dL (12.0-16.0); Mean Corpuscular Hgb Conc 31.1 g/dL (32-36); Mean Corpuscular Volume 80.4 fL (80-100); Mean Platelet Volume 8.5 fL (7.4-10.4); Platelet Count 198 K/uL (130-400); RDW Coefficient of Variation 21.7 % (11.5-14.5); RDW Standard Deviation 60.6 fL (36.4-46.3); Red Blood Count 2.96 M/uL (4.2-5.4); White Blood Count 4.62 K/uL (4.8-10.8)
[2020-08-20 08:10] LABS: INR 1.5 (0.9-1.1); Prothrombin Time 15.2 Seconds (9.0-12.0)
[2020-08-20 08:42] LABS: Albumin Globulin Ratio 0.4 (0.9-2); BUN Creatinine Ratio 27.9 (10-20); Bilirubin,Total 0.5 mg/dl (0.2-1); Creatinine Clr Calc Pharmacy 41.6 ml/min; Est GFR (African American) 36.6; Est GFR (Non-African American) 31.5; Globulin 4.6 gm/dl (2.5-4.0); Magnesium 2.3 mg/dl (1.8-2.4); Potassium 4.7 mmol/L (3.5-5.1); Total Protein 6.6 gm/dl (6.4-8.2)
[2020-08-20] MEDS: DOCUSATE SODIUM 100 MG CAP PO SCH ×2 (08:47→21:13)
[2020-08-20] MEDS: METOPROLOL SUCC 25MG EXT REL TAB PO SCH ×2 (08:47→21:14)
[2020-08-20] MEDS: POLYETHYLENE (MIRALAX) 17 GM PACK PO SCH (08:47)
[2020-08-20] MEDS: ASPIRIN 81 MG ECTAB PO SCH (08:47)
[2020-08-20] MEDS: CHOLECALCIFEROL 1,000 UNITS 25 MCG TAB PO SCH (08:47)
[2020-08-20] MEDS: MULTIVITAMIN TAB PO SCH (08:47)
[2020-08-20] MEDS: SODIUM CHLORIDE 0.65% NA SOLN 45 ML (OCEAN) NAE SCH ×3 (08:48→21:14)
[2020-08-20] MEDS: FERROUS SULFATE 325 MG TAB PO SCH ×2 (08:49→21:14)
[2020-08-20] MEDS: LIDOCAINE 5% 1 PATCH TD SCH (08:49)
[2020-08-20] MEDS: UMECLIDINIUM/VILANTEROL 62.5/25MCG 7 PUFFS/INHALER INH SCH (08:49)
[2020-08-20] MEDS: SODIUM BICARBONATE 650 MG TAB PO SCH ×2 (08:49→21:14)
[2020-08-20] MEDS: INSULIN ASPART 100 UNITS/ML 3 ML PEN SC SCH ×4 (08:50→21:06)
[2020-08-20] MEDS: FLUTICASONE FUROATE 200MCG 14 PUFFS/INHALER INH SCH (08:50)
[2020-08-20] MEDS ORDERED: INSULIN GLARGINE SOLOSTAR 100 UNITS/ML 3 ML PEN SC SCH (09:00)
--- NOTE | 2020-08-20 10:52 | Pharmacy Report ---
Pharmacy Glycemic Short Note 2 - Date of Service August 20, 2020 - Glycemic Short BSG Results (Last 24 hours): 08/19/20 08/20/20 08/20/20 20:44 07:31 08:10 Glucose 50 L* POC Glucose 195 H 66 L* 08/20/20 08/20/20 08/20/20 08:11 08:38 08:56 Glucose POC Glucose 65 L* 68 L* 100 H OUTPATIENT ANTIDIABETIC REGIMEN: * Checked outpatient [facility] and as of 07/30/20 - Lantus 20 units BID, Novolog 15 units TIDM + SSI * A1c = 7.2% (08/16/2020) RISK FACTORS FOR INSULIN RESISTANCE: * Covid-19 PNA with possible bacterial pna on cefepime * Dexamethasone 6 mg IV daily * Regular diet ASSESSMENT: 08/20: * Patient received total of 46 units of insulin yesterday; 25 units of basal + 21 units bolus. * She received 15 units of Lantus last night which caused her to become hypoglycemic again this AM. HS Lantus dose is now discontinued. AM Lantus dose of 10 units continued today. * Post-prandial BSGs slightly elevated yesterday. Novolog CR tightened further. 08/19: * Patient received total of 72 units of insulin yesterday; 40 units of basal + 32 units bolus. * She was hypoglycemic this AM with fasting BSG = 55 mg/dl. This was most likely caused by the basal insulin. Reduced Lantus dosing today. * Post prandial BSG other than lunch yesterday was near goal. Given patient was hypoglycemic this AM, also reduced Novolog parameters. 08/18: * Patient received total around 157 units of insulin yesterday: 65 units of basal + 20 units bolus in addition to average of 72 units of regular insulin from insulin drip over 24 hrs. * Dexamethasone was discontinued after dose yesterday. * Fasting BSG was 128 mg/dl. Lantus dose was increased slightly this AM, will continue HS Lantus on a BSG scale. * Novolog parameters were continued. PLAN FOR INPATIENT GLYCEMIC CONTROL: * Basal insulin: decreased * Lantus 10 units today AM * HS dose discontinued to prevent hypoglycemia in the morning. * Bolus insulin: CR tightened * NovoLog per scale ACHS or Q6hrs while NPO * Goal Range: Low 110 mg/dL - High 140 mg/dL * Correction Factor: 20 mg/dL/unit * Nutritional / Prandial insulin per carb ratio of 1 unit per 7 grams CHO consumed PLAN FOR DISCHARGE: * HbA1c = 7.2% on 08/16/20. * Recently reported that per [facility], patient was experiencing hypoglycemia. * Recommend decreasing Lantus dosing to between 10-15 units in the morning and discontinuing HS Lantus dose. * Recommend continue Novolog sliding scale with meals and with BSG checks four times a day.
[2020-08-20] MEDS: WARFARIN SOD 2 MG TAB PO SCH (15:25)
[2020-08-20] MEDS: ALBUTEROL HFA 8 GM INHALER INH PRN (20:29)
[2020-08-20] MEDS: IPRATROPIUM BROMIDE HFA INHALER INH PRN (20:29)
[2020-08-20] MEDS: AMOXICILLIN/CLAVULANATE 500 MG TAB PO SCH (21:13)
[2020-08-20] MEDS: ATORVASTATIN 40 MG TAB PO SCH (21:14)
[2020-08-20] MEDS: MELATONIN 3 MG TAB PO PRN (22:12)
[2020-08-21 07:36] LABS: Hematocrit (blood only) 23.2 % (37-47); Hemoglobin 7.2 g/dL (12.0-16.0); Mean Corpuscular Hemoglobin 24.7 pg (25-34); Mean Corpuscular Volume 79.7 fL (80-100); Nucleated RBC # (auto) 0.02 K/uL (0-0); Nucleated RBC % (auto) 0.7 %; Platelet Count 213 K/uL (130-400); RDW Coefficient of Variation 21.7 % (11.5-14.5); RDW Standard Deviation 60.5 fL (36.4-46.3); Red Blood Count 2.91 M/uL (4.2-5.4); White Blood Count 3.26 K/uL (4.8-10.8)
[2020-08-21] MEDS: SODIUM BICARBONATE 650 MG TAB PO SCH ×2 (08:15→20:26)
[2020-08-21] MEDS: SODIUM CHLORIDE 0.65% NA SOLN 45 ML (OCEAN) NAE SCH ×3 (08:15→20:26)
[2020-08-21] MEDS: MULTIVITAMIN TAB PO SCH (08:15)
[2020-08-21] MEDS: FLUTICASONE FUROATE 200MCG 14 PUFFS/INHALER INH SCH (08:16)
[2020-08-21] MEDS: ASPIRIN 81 MG ECTAB PO SCH (08:17)
[2020-08-21] MEDS: DOCUSATE SODIUM 100 MG CAP PO SCH ×2 (08:17→20:25)
[2020-08-21] MEDS: FERROUS SULFATE 325 MG TAB PO SCH ×2 (08:18→20:25)
[2020-08-21] MEDS: LIDOCAINE 5% 1 PATCH TD SCH (08:18)
[2020-08-21] MEDS: POLYETHYLENE (MIRALAX) 17 GM PACK PO SCH (08:19)
[2020-08-21] MEDS ORDERED: CARBOHYDRATES FOR HYPOGLYCEMIA PO PRN (08:30)
[2020-08-21 08:34] LABS: BUN Creatinine Ratio 27.3 (10-20); Calcium 7.9 mg/dl (8.5-10.1); Creatinine Clr Calc Pharmacy 35.1 ml/min; Est GFR (African American) 29.8; Est GFR (Non-African American) 25.7; Magnesium 2.4 mg/dl (1.8-2.4); Potassium 4.8 mmol/L (3.5-5.1)
[2020-08-21] MEDS: AMOXICILLIN/CLAVULANATE 500 MG TAB PO SCH ×2 (08:34→16:04)
[2020-08-21] MEDS: UMECLIDINIUM/VILANTEROL 62.5/25MCG 7 PUFFS/INHALER INH SCH (08:41)
[2020-08-21] MEDS: INSULIN ASPART 100 UNITS/ML 3 ML PEN SC SCH ×4 (09:06→20:54)
[2020-08-21] MEDS: METOPROLOL SUCC 25MG EXT REL TAB PO SCH ×2 (09:11→20:24)
[2020-08-21] MEDS: CHOLECALCIFEROL 1,000 UNITS 25 MCG TAB PO SCH (09:13)
[2020-08-21] MEDS: oxyCODONE HCL IR 5 MG TAB (IMMEDIATE RELEASE) PO PRN ×2 (09:19→15:33)
--- NOTE | 2020-08-21 13:52 | Pharmacy Report ---
Glycemic Control Progress Note - Date of Service August 21, 2020 - Scope Glycemic Pharmacist consulted for glycemic control to write orders per [facility] inpatient glycemic control protocol. - Objective Accuchecks BSG(last 24 hours):: 08/20/20 08/20/20 08/20/20 16:32 20:36 20:38 Glucose POC Glucose 172 H 386 H* 166 H 08/20/20 08/21/20 08/21/20 20:40 07:14 08:10 Glucose 40 L* POC Glucose 165 H 56 L* 08/21/20 08/21/20 08/21/20 08:12 08:37 11:47 Glucose POC Glucose 45 L* 84 176 H HbA1c:: Hemoglobin A1c 7.2 % (4.5-5.6) H 08/16/20 06:39 - Recent Pertinent Medications The patient is currently receiving: * Basal insulin: Lantus 10 units every 24 hours * Correctional Insulin: Novolog Correction per scale ACHS Goal Range: Low 110 mg/dL - High 140 mg/dL Correction Factor: 20 mg/dL/unit * Prandial insulin: Per carb ratio of 1 unit per 7 grams CHO consumed - Outpatient Anti-Diabetic Meds Lantus 20 units BID Novolog 15 units TIDM + Sliding Scale - Assessment & Plan ASSESSMENT: * See progress note from 08/16/20 for more background info, in short: * Pt receiving SQ basal bolus insulin regimen for hyperglycemia secondary to baseline DM (outpatient regimen on hold). Patient currently on Augmentin. * Patient is currently receiving an average of 36 units of insulin per day * 10 units of basal insulin * 26 units of prandial/correctional insulin * BSGs ranging 65 - 233 mg/dl over the past 24hrs * Changes needed to insulin regimen: * AM Fasting BSG = 45 mg/dl. This is below goal range for patient based on inpatient targets and co-morbidities. Therefore Basal insulin will be stopped. Basal insulin had already been reduced drastically for several days prior to this so will be stopped now. Renal function is worsening. * Post-prandial BSGs were stable yesterday so will continue current regimen. Do not believe that HS Novolog is responsible for AM hypoglycemia at this point. * Total daily dose is TBD but appears to be less than 30 units. Adjusted regimen as listed above. PLAN FOR INPATIENT GLYCEMIC CONTROL: * Stopping Lantus * Continuing correction factor of 20 mg/dl/unit * Continuing carb ratio of 1 unit per 7 grams CHO consumed * Continuing goal range of Low 110 mg/dL - High 140 mg/dL RECOMMENDATIONS FOR DISCHARGE: * Patient's HbA1C is in goal range (goal for patient's age and comorbidities is 7.5% whereas current HbA1C is 7.2%). * Recommend continuing home regimen as long as she does not have any problems with hypoglycemia as an outpatient. Thank you.
[2020-08-21] MEDS: WARFARIN SOD 2 MG TAB PO SCH (16:02)
--- NOTE | 2020-08-21 17:44 | Hospitalist Progress Note ---
Date of Service August 21, 2020 Assessment & Plan (1) COVID-19: Pneumonia due to coronavirus disease 2019. Hypoxic on arrival, started on dexamethasone in the ED. Possibly had metabolic encephalopathy on admission, but now appears at baseline. - Presently off oxygen supplementation - Albuterol/Atrovent PRN - Not a candidate for remdesivir secondary to renal function - Stopped dexamethasone on 08/17 given stable on room air and clear detriment of her blood sugars. Still on room air, though CXR clearly shows pneumonia. (2) Dental infection: On 08/18, patient reported left, upper tooth pain. CT face showed chronic sinus disease with moderate sized periapical cysts. - Added Augmentin on 08/20 after continued reports of dental pain. (3) Atrial fibrillation and flutter: Present at [facility] in 07/2020. - Continue metoprolol (increased to 25 mg PO Q12h on 08/21 - Continue warfarin as needed (INR presently 1.5 on 08/20) - Will restart at lower dose given high INR on presentation. (4) Stroke: Was in [facility] for CVA, thought to be embolic from afib. - Continue ASA, statin - Monitor INR (5) Heart failure: Unclear whether this is systolic or diastolic. - Does not appear to be an acute exacerbation of heart failure - Hold Lasix - Echo pending - Not being done due to Covid status - Appears euvolemic today. (6) Hypertension associated with type 1 diabetes mellitus: BP today is 150/90. - Continue metoprolol - Hold Lasix (7) IDDM (insulin dependent diabetes mellitus): A1c was 7.2%. - Glycemic pharmacist consulted - Basal/bolus now - Sugars low this morning after off steroids. Stopped all basal insulin on 08/21. (8) Mitral valve regurgitation: Unclear where this diagnosis is coming from. - Continue Toprol XL 25 mg PO BID - Echo pending as above - Hold Lasix with for now (Home dose is 40 mg PO BID) - Patient appears euvolemic on exam. 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 - Hold Lasix - Renally dose medications - Cr presently 2.1; at baseline as of 08/19. (10) Bipolar disorder: Stable at this time no acute needs. - Continue outpatient medications: chlorpromazine 150 mg PO HS PRN, melatonin PRN, tizanidine 2 mg PO Q8h PRN, ziprasidone 20 mg PO BID (11) Pressure ulcer of BKA stump, stage 2: Wound care consult for continued treatment. Looked at wound on 08/18; no erythema or warmth. Do not feel it is infected. 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 - As above (13) DVT prophylaxis: On warfarin for afib. Admission and Anticipated Discharge Date Admission Date: August 15, 2020 Subjective Doing well today. No noted pain. No nose-bleeding. Reports no fevers/chills, chest pain, shortness of breath, abdominal pain, nausea, or vomiting. Physical Exam Constitutional: WD/WN, vitals as above Eyes: EOM intact bilaterally; no conjunctival abnormality ENMT: external ear and nose normal, oropharynx normal Mouth: + poor dentition and + chipped teeth (Upper left side) Neck: trachea midline, no thyromegaly normal visual inspection Respiratory: normal respiratory effort, lungs clear to auscultation no respiratory distress Cardiovascular: RRR, no murmur, no edema Rate/Rhythm: regular rhythm and + tachycardic Heart Sounds: normal S1 and normal S2 Extremities: no edema Gastrointestinal (Abdomen): Inspection/Auscultation: abdomen normal to inspection; abdomen not distended Musculoskeletal: no cyanosis or clubbing, extremities motor strength 5/5 Skin: no rashes, warm and dry Neurologic: moves all extremities and awake Psychiatric: Orientation: alert, oriented to person and cooperative Results & Data Results & Data ([facility]) Vital Signs (Past 12 Hours) Vital Signs Temp Pulse Pulse Resp BP BP Pulse Ox 08/21/20 15:16 36.6 C 99 H 22 156/87 H 91 08/21/20 07:57 36.9 C 93 H 18 130/81 93 PG Care Time/CCT Total # of Minutes Spent Total Time Spent with Patient: Total time spent is greater than 50% in coordin ation of care (as documented) at patient's floor/unit and/or counseling patient: Coding Level of Care Code 08129 Subseq Hosp Care Lvl 3 Diagnoses COVID-19 U07.1 Dental infection K04.7 Atrial fibrillation and flutter I48.91; I48.92 Stroke I63.9 Heart failure I50.32 Heart failure type: diastolic Heart failure chronicity: chronic Hypertension associated with type 1 diabetes mellitus E10.59; I15.2 IDDM (insulin dependent diabetes mellitus) Mitral valve regurgitation I34.0 Cardiac valve disease etiology: etiology unspecified CKD (chronic kidney disease), stage III N18.30 Chronic kidney disease stage 3 subtype: unspecified whether 3a or 3b Bipolar disorder F31.9 Active/Remission status: currently active Psychotic features: without psychotic features Pressure ulcer of BKA stump, stage 2 T87.89; L89.892 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, limited to breakdown of skin E08.621; L97.521 Diabetic foot ulcer location: toe DVT prophylaxis Z29.9 (1) Heart failure Heart failure type: diastolic Heart failure chronicity: chronic Qualified Code(s): I50.32 - Chronic diastolic (congestive) heart failure (2) Mitral valve regurgitation Cardiac valve disease etiology: etiology unspecified Qualified Code(s): I34.0 - Nonrheumatic mitral (valve) insufficiency (3) CKD (chronic kidney disease), stage III Chronic kidney disease stage 3 subtype: unspecified whether 3a or 3b Qualified Code(s): N18.30 - Chronic kidney disease, stage 3 unspecified (4) Bipolar disorder Active/Remission status: currently active Psychotic features: without psychotic features (5) 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
[2020-08-21] MEDS: IRON SUCROSE 300 MG in SODIUM CHLORIDE 0.9% 250 ML IV SCH (20:03)
[2020-08-21] MEDS: MELATONIN 3 MG TAB PO PRN (20:25)
[2020-08-21] MEDS: ACETAMINOPHEN 325 MG TAB PO PRN (20:25)
[2020-08-21] MEDS: guaiFENesin SUGAR FREE 100 MG/5 ML UDC PO PRN (20:25)
[2020-08-21] MEDS: ATORVASTATIN 40 MG TAB PO SCH (20:25)
[2020-08-21] MEDS: tiZANidine HCL 4 MG TABLET PO PRN (23:19)
[2020-08-22 07:07] LABS: Hematocrit (blood only) 22.7 % (37-47); Mean Corpuscular Hemoglobin 24.6 pg (25-34); Mean Corpuscular Hgb Conc 30.8 g/dL (32-36); Mean Corpuscular Volume 79.6 fL (80-100); Mean Platelet Volume 9.1 fL (7.4-10.4); Nucleated RBC # (auto) 0.04 K/uL (0-0); Nucleated RBC % (auto) 0.8 %; Platelet Count 228 K/uL (130-400); RDW Coefficient of Variation 21.6 % (11.5-14.5); RDW Standard Deviation 62.1 fL (36.4-46.3); Red Blood Count 2.85 M/uL (4.2-5.4); White Blood Count 4.53 K/uL (4.8-10.8)
[2020-08-22 07:13] LABS: INR 1.5 (0.9-1.1); Prothrombin Time 15.3 Seconds (9.0-12.0)
[2020-08-22 07:31] LABS: Albumin Level 1.7 gm/dl (3.4-5.0); BUN Creatinine Ratio 27.9 (10-20); Calcium 7.5 mg/dl (8.5-10.1); Creatinine Clr Calc Pharmacy 36.9 ml/min; Est GFR (African American) 31.3; Magnesium 2.6 mg/dl (1.8-2.4); Potassium 4.8 mmol/L (3.5-5.1)
[2020-08-22 07:34] LABS: Albumin Globulin Ratio 0.4 (0.9-2); Bilirubin,Total 0.3 mg/dl (0.2-1); Globulin 4.6 gm/dl (2.5-4.0); Total Protein 6.3 gm/dl (6.4-8.2)
[2020-08-22] MEDS: oxyCODONE HCL IR 5 MG TAB (IMMEDIATE RELEASE) PO PRN ×3 (07:57→23:14)
[2020-08-22] MEDS: AMOXICILLIN/CLAVULANATE 500 MG TAB PO SCH ×2 (07:59→16:52)
[2020-08-22] MEDS: UMECLIDINIUM/VILANTEROL 62.5/25MCG 7 PUFFS/INHALER INH SCH (08:01)
[2020-08-22] MEDS: FLUTICASONE FUROATE 200MCG 14 PUFFS/INHALER INH SCH (08:02)
[2020-08-22] MEDS: ASPIRIN 81 MG ECTAB PO SCH (08:05)
[2020-08-22] MEDS: LIDOCAINE 5% 1 PATCH TD SCH (08:06)
[2020-08-22] MEDS: FERROUS SULFATE 325 MG TAB PO SCH ×2 (08:06→20:15)
[2020-08-22] MEDS: MULTIVITAMIN TAB PO SCH (08:07)
[2020-08-22] MEDS: POLYETHYLENE (MIRALAX) 17 GM PACK PO SCH (08:07)
[2020-08-22] MEDS: SODIUM BICARBONATE 650 MG TAB PO SCH ×2 (08:08→20:15)
[2020-08-22] MEDS: SODIUM CHLORIDE 0.65% NA SOLN 45 ML (OCEAN) NAE SCH ×3 (08:08→20:16)
[2020-08-22] MEDS: METOPROLOL SUCC 25MG EXT REL TAB PO SCH ×2 (08:09→20:15)
[2020-08-22] MEDS: CHOLECALCIFEROL 1,000 UNITS 25 MCG TAB PO SCH (08:10)
[2020-08-22] MEDS: DOCUSATE SODIUM 100 MG CAP PO SCH ×2 (08:28→20:16)
[2020-08-22] MEDS: IRON SUCROSE 300 MG in SODIUM CHLORIDE 0.9% 250 ML IV SCH (08:29)
[2020-08-22] MEDS: INSULIN ASPART 100 UNITS/ML 3 ML PEN SC SCH ×4 (09:02→21:19)
[2020-08-22] MEDS: INSULIN GLARGINE SOLOSTAR 100 UNITS/ML 3 ML PEN SC SCH ×2 (10:02→21:20)
--- NOTE | 2020-08-22 12:03 | Pharmacy Report ---
Glycemic Control Progress Note - Date of Service August 22, 2020 - Scope Glycemic Pharmacist consulted for glycemic control to write orders per [facility] inpatient glycemic control protocol. - Objective Accuchecks BSG(last 24 hours):: 08/21/20 08/21/20 08/22/20 17:05 20:48 06:07 Glucose 137 H POC Glucose 257 H 284 H 08/22/20 08/22/20 08:14 11:48 Glucose POC Glucose 137 H 256 H HbA1c:: Hemoglobin A1c 7.2 % (4.5-5.6) H 08/16/20 06:39 - Recent Pertinent Medications The patient is currently receiving: * Basal insulin: Lantus -- units every -- hours * Correctional Insulin: Novolog Correction per scale ACHS Goal Range: Low 110 mg/dL - High 140 mg/dL Correction Factor: 20 mg/dL/unit * Prandial insulin: Per carb ratio of 1 unit per 7 grams CHO consumed - Outpatient Anti-Diabetic Meds Lantus 20 units BID + Novolog 15 units TIDM - Assessment & Plan ASSESSMENT: * See progress note from 08/16/20 for more background info, in short: * Pt receiving SQ basal bolus insulin regimen for hyperglycemia secondary to baseline DM (outpatient regimen on hold). Patient currently has COVID. She is on Augmentin * Patient is currently receiving an average of 27 units of insulin per day * 0 units of basal insulin * 27 units of prandial/correctional insulin * BSGs ranging 45 - 284 mg/dl over the past 24hrs * Changes needed to insulin regimen: * AM Fasting BSG = 137 mg/dl. This is in goal range for patient based on inpatient targets and co-morbidities. Therefore basal insulin will be restarted at 10 units for the morning. Suspect that true basal requirements are around 15-25 units/day; HOWEVER, will cautiously add this back due to several days of fasting hypoglycemia. Extra 5 units tonight if BSG > 160 mg/dL. * Post-prandial BSGs were elevated yesterday ... most likely due to lack of basal. Will tighten CF since slowing adding basal insulin back. Will also tighten CR since suspect patient is carbohydrate sensitive (based on outpatient regimen which is bolus heavy). * Total daily dose = ? units. PLAN FOR INPATIENT GLYCEMIC CONTROL: * Restarting Lantus 10 units SQ daily plus 5 extra units tonight if BSG > 160 mg/dL * TIGHTENING correction factor to 18 mg/dl/unit * TIGHTENING carb ratio to 1 unit per 6 grams CHO consumed * Continuing goal range of Low 110 mg/dL - High 140 mg/dL * Please note that the plan above was derived based on current level of insulin resistance and hospital stress. These recommendations are appropriate for inpatient admission only. Plan of care upon discharge will need to be reassessed to avoid potential outpatient hypo/hyperglycemia. Thank you.
--- NOTE | 2020-08-22 14:03 | Hospitalist Progress Note ---
Date of Service August 22, 2020 Assessment & Plan (1) COVID-19: Pneumonia due to coronavirus disease 2019. Hypoxic on arrival, started on dexamethasone in the ED. Possibly had metabolic encephalopathy on admission, but now appears at baseline. - Presently off oxygen supplementation - Albuterol/Atrovent PRN - Not a candidate for remdesivir secondary to renal function - Stopped dexamethasone on 08/17 given stable on room air and clear detriment of her blood sugars. Still on room air, though CXR clearly shows pneumonia. (2) Dental infection: On 08/18, patient reported left, upper tooth pain. CT face showed chronic sinus disease with moderate sized periapical cysts. - Added Augmentin on 08/20 after continued reports of dental pain. (3) Atrial fibrillation and flutter: Present at [facility] in 07/2020. - Continue metoprolol (increased to 25 mg PO Q12h on 08/21 - Continue warfarin as needed (INR presently 1.5 on 08/20) - Will restart at lower dose given high INR on presentation. (4) Stroke: Was in [facility] for CVA, thought to be embolic from afib. - Continue ASA, statin - Monitor INR (5) Heart failure: Unclear whether this is systolic or diastolic. - Does not appear to be an acute exacerbation of heart failure - Hold Lasix - Echo pending - Not being done due to Covid status - Appears euvolemic today. (6) Hypertension associated with type 1 diabetes mellitus: BP today is 150/90. - Continue metoprolol - Hold Lasix (7) IDDM (insulin dependent diabetes mellitus): A1c was 7.2%. - Glycemic pharmacist consulted - Basal/bolus now - Sugars low this morning after off steroids. Stopped all basal insulin on 08/21. (8) Mitral valve regurgitation: Unclear where this diagnosis is coming from. - Continue Toprol XL 25 mg PO BID - Echo pending as above - Hold Lasix with for now (Home dose is 40 mg PO BID) - Patient appears euvolemic on exam. 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 - Hold Lasix - Renally dose medications - Cr presently 2.1; at baseline as of 08/19. (10) Bipolar disorder: Stable at this time no acute needs. - Continue outpatient medications: chlorpromazine 150 mg PO HS PRN, melatonin PRN, tizanidine 2 mg PO Q8h PRN, ziprasidone 20 mg PO BID (11) Pressure ulcer of BKA stump, stage 2: Wound care consult for continued treatment. Looked at wound on 08/18; no erythema or warmth. Do not feel it is infected. 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 - As above (13) DVT prophylaxis: On warfarin for afib. (14) Anemia: Patient is having anemia. will monitor. If remains at 7, will transfuse. Patient had a pretty big nosebleed on 08/17-08-18 when her INR was too high. Nothing since 08/18. Her hgb has trickled down since then. - Started IV iron on 08/21. -may consider a ct scna of chest/ abd/ pelvis. Admission and Anticipated Discharge Date Admission Date: August 15, 2020 Subjective Patient reports no new sympotms. Howevr she does report having low energy and feeling fatigued. Denies any SOB. Review of Systems Review of Systems: All systems reviewed & are unremarkable except as noted in HPI & below Physical Exam Physical Exam: Constitutional: WD/WN, vitals as above Eyes: EOM intact bilaterally; no conjunctival abnormality ENMT: external ear and nose normal, oropharynx normal Mouth: + poor dentition and + chipped teeth (Upper left side) Neck: trachea midline, no thyromegaly normal visual inspection Respiratory: normal respiratory effort, lungs clear to auscultation no respiratory distress Cardiovascular: RRR, no murmur, no edema Rate/Rhythm: regular rhythm and + tachycardic Heart Sounds: normal S1 and normal S2 Extremities: no edema Gastrointestinal (Abdomen): Inspection/Auscultation: abdomen normal to inspection; abdomen not distended Musculoskeletal: no cyanosis or clubbing, extremities motor strength 5/5 Skin: no rashes, warm and dry Neurologic: moves all extremities and awake Psychiatric: Orientation: alert, oriented to person and cooperative Results & Data Results & Data ([facility]) Vital Signs (Past 12 Hours) Vital Signs Temp Pulse Resp BP Pulse Ox 08/22/20 08:06 36.4 C L 85 18 118/82 99 08/22/20 04:03 100 PG Care Time/CCT Total # of Minutes Spent Total Time Spent with Patient: Total time spent is greater than 50% in coordina tion of care (as documented) at patient's floor/unit and/or counseling patient: Coding Level of Care Code 45476 Subseq Hosp Care Lvl 3 Diagnoses COVID-19 U07.1 Dental infection K04.7 Atrial fibrillation and flutter I48.91; I48.92 Stroke I63.9 Heart failure I50.32 Heart failure chronicity: chronic Heart failure type: diastolic Hypertension associated with type 1 diabetes mellitus E10.59; I15.2 IDDM (insulin dependent diabetes mellitus) Mitral valve regurgitation I34.0 Cardiac valve disease etiology: etiology unspecified CKD (chronic kidney disease), stage III N18.30 Chronic kidney disease stage 3 subtype: unspecified whether 3a or 3b Bipolar disorder F31.9 Active/Remission status: currently active Psychotic features: without psychotic features Pressure ulcer of BKA stump, stage 2 T87.89; L89.892 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, limited to breakdown of skin E08.621; L97.521 Diabetic foot ulcer location: toe DVT prophylaxis Z29.9 Anemia D64.9 Anemia type: unspecified type (1) Heart failure Heart failure chronicity: chronic Heart failure type: diastolic Qualified Code(s): I50.32 - Chronic diastolic (congestive) heart failure (2) CKD (chronic kidney disease), stage III Chronic kidney disease stage 3 subtype: unspecified whether 3a or 3b Qualified Code(s): N18.30 - Chronic kidney disease, stage 3 unspecified (3) Bipolar disorder Active/Remission status: currently active Psychotic features: without psychotic features (4) Mitral valve regurgitation Cardiac valve disease etiology: etiology unspecified Qualified Code(s): I34.0 - Nonrheumatic mitral (valve) insufficiency (5) 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 (6) Anemia Anemia type: unspecified type Qualified Code(s): D64.9 - Anemia, unspecified
[2020-08-22 14:23] LABS: Hematocrit (blood only) 23.2 % (37-47); Hemoglobin 7.3 g/dL (12.0-16.0)
[2020-08-22] MEDS: WARFARIN SOD 2 MG TAB PO SCH (16:02)
[2020-08-22] MEDS: guaiFENesin SUGAR FREE 100 MG/5 ML UDC PO PRN (20:14)
[2020-08-22] MEDS: tiZANidine HCL 4 MG TABLET PO PRN (20:14)
[2020-08-22] MEDS: MELATONIN 3 MG TAB PO PRN (20:14)
[2020-08-22] MEDS: ATORVASTATIN 40 MG TAB PO SCH (20:15)
[2020-08-22] MEDS: IPRATROPIUM BROMIDE HFA INHALER INH PRN (20:20)
[2020-08-22] MEDS: ALBUTEROL HFA 8 GM INHALER INH PRN (20:21)
[2020-08-23] MEDS: oxyCODONE HCL IR 5 MG TAB (IMMEDIATE RELEASE) PO PRN ×2 (07:51→16:32)
[2020-08-23] MEDS: AMOXICILLIN/CLAVULANATE 500 MG TAB PO SCH ×2 (07:55→16:31)
[2020-08-23] MEDS: UMECLIDINIUM/VILANTEROL 62.5/25MCG 7 PUFFS/INHALER INH SCH (07:58)
[2020-08-23] MEDS: FLUTICASONE FUROATE 200MCG 14 PUFFS/INHALER INH SCH (07:59)
[2020-08-23] MEDS: DOCUSATE SODIUM 100 MG CAP PO SCH ×2 (08:00→21:31)
[2020-08-23] MEDS: FERROUS SULFATE 325 MG TAB PO SCH ×2 (08:01→21:31)
[2020-08-23] MEDS: ASPIRIN 81 MG ECTAB PO SCH (08:01)
[2020-08-23] MEDS: POLYETHYLENE (MIRALAX) 17 GM PACK PO SCH (08:02)
[2020-08-23] MEDS: MULTIVITAMIN TAB PO SCH (08:03)
[2020-08-23] MEDS: SODIUM CHLORIDE 0.65% NA SOLN 45 ML (OCEAN) NAE SCH ×3 (08:03→21:33)
[2020-08-23] MEDS: METOPROLOL SUCC 25MG EXT REL TAB PO SCH ×2 (08:04→21:36)
[2020-08-23] MEDS: SODIUM BICARBONATE 650 MG TAB PO SCH ×2 (08:04→21:34)
[2020-08-23] MEDS: IRON SUCROSE 300 MG in SODIUM CHLORIDE 0.9% 250 ML IV SCH (08:05)
[2020-08-23] MEDS: CHOLECALCIFEROL 1,000 UNITS 25 MCG TAB PO SCH (08:07)
[2020-08-23] MEDS: LIDOCAINE 5% 1 PATCH TD SCH (08:10)
[2020-08-23] MEDS: INSULIN GLARGINE SOLOSTAR 100 UNITS/ML 3 ML PEN SC SCH ×2 (09:15→21:32)
[2020-08-23 09:27] LABS: Mean Corpuscular Hgb Conc 31.8 g/dL (32-36); Mean Corpuscular Volume 78.6 fL (80-100); Mean Platelet Volume 8.9 fL (7.4-10.4); Nucleated RBC # (auto) 0.05 K/uL (0-0); Nucleated RBC % (auto) 0.9 %; Platelet Count 276 K/uL (130-400); RDW Coefficient of Variation 21.3 % (11.5-14.5); RDW Standard Deviation 60.3 fL (36.4-46.3); White Blood Count 5.37 K/uL (4.8-10.8)
[2020-08-23] MEDS: INSULIN ASPART 100 UNITS/ML 3 ML PEN SC SCH ×4 (09:30→21:41)
[2020-08-23 09:50] LABS: BUN Creatinine Ratio 25.2 (10-20); Calcium 7.8 mg/dl (8.5-10.1); Creatinine Clr Calc Pharmacy 31.5 ml/min; Est GFR (African American) 25.9; Est GFR (Non-African American) 22.3; Potassium 6.1 mmol/L (3.5-5.1)
[2020-08-23] MEDS ORDERED: SODIUM CHLORIDE 0.9% 1000ML 1,000 ML IV SCH (10:45)
[2020-08-23] MEDS ORDERED: CALCIUM GLUCONATE 10% 10 ML VIAL IV ONE (10:45)
--- NOTE | 2020-08-23 11:09 | CT Scan Report ---
CT SCAN OF THE ABDOMEN AND PELVIS WITHOUT CONTRAST CLINICAL HISTORY: anemia/ supratherapeutic INR/ hematoma? COMPARISON STUDY: No previous studies for comparison. TECHNIQUE: CT scan of the abdomen and pelvis was performed from the lung bases to the proximal femurs . Images are reviewed in the axial, sagittal, and coronal planes. IV contrast was not administered fo r this examination. A dose lowering technique was utilized adhering to the principles of ALARA. CT DOSE: 1102.16 mGycm FINDINGS: Lower chest: There are bilateral pulmonary airspace opacities. There are bilateral pleural effusions. Liver: The unenhanced liver is normal in size, contour, and attenuation. There is no intrahepatic franny iary ductal dilatation. Gallbladder: Cholelithiasis with mild gallbladder wall thickening. No gallbladder distention. Spleen: Normal in size and attenuation. Pancreas: Unremarkable. Adrenal glands: There is mild left adrenal gland thickening. Kidneys: There are tiny bilateral renal calcifications. Vascular versus calculi. Low-density renal le sions likely represent cysts. Bowel: There are no transition zones to indicate bowel obstruction. There is no acute diverticulitis. There are no findings to indicate acute appendicitis. Peritoneum: There is low volume ascites. Vasculature: There is no evidence for abdominal aortic aneurysm. There are aortoiliac atheromatous ch anges. Adenopathy: None. Pelvic viscera: There are uterine calcifications. Skeletal structures: There is diffuse body wall edema. No destructive skeletal lesions are visualized . IMPRESSION: 1. Bilateral pleural effusions and bilateral pulmonary airspace opacities 2. Low volume ascites 3. Cholelithiasis and mild gallbladder wall thickening 4. Diffuse body wall edema/anasarca. 5. No evidence of retroperitoneal hemorrhage ACT 112: Negative or not required by law. Electronically signed by: Lowell Estrada M.D. 08/23/2020 11:08 AM
[2020-08-23] MEDS: PATIROMER CALCIUM SORBITEX 8.4 GM PACK PO SCH (12:51)
--- NOTE | 2020-08-23 14:23 | XCELERA ---
[id number] \\[id number]
--- NOTE | 2020-08-23 15:52 | XRay Report ---
XR chest 1V portable CLINICAL HISTORY: covid/ multifocal pneumonia COMPARISON STUDY: 08/18/2020 FINDINGS: The cardiac and mediastinal contours remain stable. There are diffuse multifocal airspace o pacities relatively similar to the prior study consistent with a multifocal pneumonia. There are no s ignificant pleural effusions.[ IMPRESSION: Interstitial thickening a multifocal airspace opacity similar to the prior study. The fin dings are consistent with a multifocal pneumonia ACT 112: Negative or not required by law. Electronically signed by: Lowell Estrada M.D. 08/23/2020 3:51 PM
[2020-08-23] MEDS: WARFARIN SOD 2 MG TAB PO SCH (16:30)
[2020-08-23 16:39] LABS: Potassium 5.2 mmol/L (3.5-5.1)
[2020-08-23 16:40] LABS: BUN Creatinine Ratio 29.3 (10-20); Calcium 8.3 mg/dl (8.5-10.1); Creatinine Clr Calc Pharmacy 33.6 ml/min; Est GFR (African American) 27.9; Est GFR (Non-African American) 24.1
--- NOTE | 2020-08-23 18:36 | Electrocardiogram Report ---
Test Reason : Blood Pressure : / mmHG Vent. Rate : 081 BPM Atrial Rate : 081 BPM P-R Int : 176 ms QRS Dur : 078 ms QT Int : 384 ms P-R-T Axes : 074 046 078 degrees QTc Int : 446 ms Normal sinus rhythm Possible Left atrial enlargement Low voltage QRS Borderline ECG When compared with ECG of 17-AUG-2020 16:18, No significant change was found Confirmed by Rohan Fischer ([id number] on 08/23/2020 6:35:52 PM Referred By: [facility] Confirmed By:Rohan Fischer
--- NOTE | 2020-08-23 20:56 | Hospitalist Progress Note ---
Date of Service August 23, 2020 Assessment & Plan (1) COVID-19: Pneumonia due to coronavirus disease 2019. Hypoxic on arrival, started on dexamethasone in the ED. Possibly had metabolic encephalopathy on admission, but now appears at baseline. - Presently off oxygen supplementation - Albuterol/Atrovent PRN - Not a candidate for remdesivir secondary to renal function - Stopped dexamethasone on 08/17 given stable on room air and clear detriment of her blood sugars. Still on room air, though CXR clearly shows pneumonia. (2) Dental infection: On 08/18, patient reported left, upper tooth pain. CT face showed chronic sinus disease with moderate sized periapical cysts. - Added Augmentin on 08/20 after continued reports of dental pain. (3) Atrial fibrillation and flutter: Present at [facility] in 07/2020. - Continue metoprolol (increased to 25 mg PO Q12h on 08/21 - Continue warfarin as needed (INR presently 1.5 on 08/20) - hemoglobin has been stable.. (4) Stroke: Was in [facility] for CVA, thought to be embolic from afib. - Continue ASA, statin - Monitor INR (5) Heart failure: Unclear whether this is systolic or diastolic. - Does not appear to be an acute exacerbation of heart failure - Hold Lasix - Echo pending - Not being done due to Covid status - Appears euvolemic today. (6) Hypertension associated with type 1 diabetes mellitus: BP at goal. - Continue metoprolol - Hold Lasix (7) IDDM (insulin dependent diabetes mellitus): A1c was 7.2%. - Glycemic pharmacist consulted - Basal/bolus now - Sugars low this morning after off steroids. Stopped all basal insulin on 08/21. (8) Mitral valve regurgitation: Unclear where this diagnosis is coming from. - Continue Toprol XL 25 mg PO BID - Echo pending as above - Hold Lasix with for now (Home dose is 40 mg PO BID) - Patient appears euvolemic on exam. 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 - Hold Lasix - Renally dose medications - Cr presently 2.1; at baseline as of 08/19. (10) Bipolar disorder: Stable at this time no acute needs. - Continue outpatient medications: chlorpromazine 150 mg PO HS PRN, melatonin PRN, tizanidine 2 mg PO Q8h PRN, ziprasidone 20 mg PO BID (11) Pressure ulcer of BKA stump, stage 2: Wound care consult for continued treatment. Looked at wound on 08/18; no erythema or warmth. Do not feel it is infected. 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 - As above (13) DVT prophylaxis: On warfarin for afib. (14) Anemia: Patient is having anemia. will monitor. Blood count has been stable. ct scan of abd pelvis is normal. patient not showing any signs of bleeding, will hold transfusion for now. (15) Hyponatremia: sodium is low, will initiate IVF normal saline for 1 liter and closely monitor. given how patient has CHF history. await lmited echo. (16) Hyperkalemia: ordered IVF ordered valtessa as per nephrology given how patient has acute kidney injury, and hsitory of CHF. unable to order lasix at this time. Admission and Anticipated Discharge Date Admission Date: August 15, 2020 Subjective 60 yo female reports feeling well. Patient denies any symptoms. Review of Systems Review of Systems: All systems reviewed & are unremarkable except as noted in HPI & below Physical Exam Physical Exam: Constitutional: WD/WN, vitals as above Eyes: EOM intact bilaterally; no conjunctival abnormality ENMT: external ear and nose normal, oropharynx normal Mouth: + poor dentition and + chipped teeth (Upper left side) Neck: trachea midline, no thyromegaly normal visual inspection Respiratory: normal respiratory effort, lungs clear to auscultation no respiratory distress Cardiovascular: RRR, no murmur, no edema Rate/Rhythm: regular rhythm and + tachycardic Heart Sounds: normal S1 and normal S2 Extremities: no edema Gastrointestinal (Abdomen): Inspection/Auscultation: abdomen normal to inspection; abdomen not distended Musculoskeletal: no cyanosis or clubbing, extremities motor strength 5/5 Skin: no rashes, warm and dry Neurologic: moves all extremities and awake Psychiatric: Orientation: alert, oriented to person and cooperative Results & Data Results & Data ([facility]) Vital Signs (Past 12 Hours) Vital Signs Temp Pulse Resp BP Pulse Ox 08/23/20 15:21 36.7 C 80 16 122/76 93 PG Care Time/CCT Total # of Minutes Spent Total Time Spent with Patient: Total time spent is greater than 50% in coordination of care (as documented) at patient's floor/unit and/or counseling patient: Coding Level of Care Code 76620 Subseq Hosp Care Lvl 3 Diagnoses COVID-19 U07.1 Dental infection K04.7 Atrial fibrillation and flutter I48.91; I48.92 Stroke I63.9 Heart failure I50.32 Heart failure chronicity: chronic Heart failure type: diastolic Hypertension associated with type 1 diabetes mellitus E10.59; I15.2 IDDM (insulin dependent diabetes mellitus) Mitral valve regurgitation I34.0 Cardiac valve disease etiology: etiology unspecified CKD (chronic kidney disease), stage III N18.30 Chronic kidney disease stage 3 subtype: unspecified whether 3a or 3b Bipolar disorder F31.9 Active/Remission status: currently active Psychotic features: without psychotic features Pressure ulcer of BKA stump, stage 2 T87.89; L89.892 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, limited to breakdown of skin E08.621; L97.521 Diabetic foot ulcer location: toe DVT prophylaxis Z29.9 Anemia D64.9 Anemia type: unspecified type Hyponatremia E87.1 Hyperkalemia E87.5 Time Spent (min) 35 (1) Heart failure Heart failure chronicity: chronic Heart failure type: diastolic Qualified Code(s): I50.32 - Chronic diastolic (congestive) heart failure (2) CKD (chronic kidney disease), stage III Chronic kidney disease stage 3 subtype: unspecified whether 3a or 3b Qualified Code(s): N18.30 - Chronic kidney disease, stage 3 unspecified (3) Anemia Anemia type: unspecified type Qualified Code(s): D64.9 - Anemia, unspecified (4) Bipolar disorder Active/Remission status: currently active Psychotic features: without psychotic features (5) Mitral valve regurgitation Cardiac valve disease etiology: etiology unspecified Qualified Code(s): I34.0 - Nonrheumatic mitral (valve) insufficiency (6) 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
[2020-08-23] MEDS: ATORVASTATIN 40 MG TAB PO SCH (21:33)
[2020-08-24] MEDS: oxyCODONE HCL IR 5 MG TAB (IMMEDIATE RELEASE) PO PRN ×3 (02:25→16:50)
[2020-08-24] MEDS: MELATONIN 3 MG TAB PO PRN (02:25)
[2020-08-24 08:03] LABS: Albumin Level 1.3 gm/dl (3.4-5.0); BUN Creatinine Ratio 30.7 (10-20); Calcium 6.3 mg/dl (8.5-10.1); Creatinine Clr Calc Pharmacy 43.4 ml/min; Est GFR (African American) 38.1; Est GFR (Non-African American) 32.9; Phosphorus 3.3 mg/dl (2.5-4.9); Potassium 4.1 mmol/L (3.5-5.1)
[2020-08-24 08:11] LABS: Hematocrit (blood only) 18.2 % (37-47); Hemoglobin 5.6 g/dL (12.0-16.0); Mean Corpuscular Hemoglobin 24.5 pg (25-34); Mean Corpuscular Hgb Conc 30.8 g/dL (32-36); Mean Corpuscular Volume 79.5 fL (80-100); Mean Platelet Volume 9.2 fL (7.4-10.4); Nucleated RBC # (auto) 0.06 K/uL (0-0); Nucleated RBC % (auto) 0.8 %; Platelet Count 268 K/uL (130-400); RDW Coefficient of Variation 21.5 % (11.5-14.5); RDW Standard Deviation 61.6 fL (36.4-46.3); Red Blood Count 2.29 M/uL (4.2-5.4); White Blood Count 7.01 K/uL (4.8-10.8)
[2020-08-24] MEDS ORDERED: INSULIN GLARGINE SOLOSTAR 100 UNITS/ML 3 ML PEN SC SCH (09:00)
[2020-08-24] MEDS: INSULIN ASPART 100 UNITS/ML 3 ML PEN SC SCH ×5 (09:09→23:46)
[2020-08-24] MEDS: AMOXICILLIN/CLAVULANATE 500 MG TAB PO SCH ×2 (09:23→16:52)
[2020-08-24] MEDS: UMECLIDINIUM/VILANTEROL 62.5/25MCG 7 PUFFS/INHALER INH SCH (09:28)
[2020-08-24] MEDS: FLUTICASONE FUROATE 200MCG 14 PUFFS/INHALER INH SCH (09:29)
[2020-08-24] MEDS: DOCUSATE SODIUM 100 MG CAP PO SCH ×2 (09:30→20:06)
[2020-08-24] MEDS: ASPIRIN 81 MG ECTAB PO SCH (09:30)
[2020-08-24] MEDS: LIDOCAINE 5% 1 PATCH TD SCH (09:31)
[2020-08-24] MEDS: FERROUS SULFATE 325 MG TAB PO SCH ×2 (09:31→20:06)
[2020-08-24] MEDS ORDERED: SODIUM CHLORIDE 0.9% 250 ML IV PRN (09:31)
[2020-08-24] MEDS: POLYETHYLENE (MIRALAX) 17 GM PACK PO SCH (09:32)
[2020-08-24] MEDS: MULTIVITAMIN TAB PO SCH (09:33)
[2020-08-24] MEDS: SODIUM CHLORIDE 0.65% NA SOLN 45 ML (OCEAN) NAE SCH ×3 (09:33→20:05)
[2020-08-24] MEDS: METOPROLOL SUCC 25MG EXT REL TAB PO SCH ×2 (09:34→20:06)
[2020-08-24] MEDS: SODIUM BICARBONATE 650 MG TAB PO SCH ×3 (09:34→20:05)
[2020-08-24] MEDS: CHOLECALCIFEROL 1,000 UNITS 25 MCG TAB PO SCH (09:35)
--- NOTE | 2020-08-24 10:19 | Gastrointestinal Consultation ---
Date of Consultation August 24, 2020 Assessment & Plan (1) Acute on chronic blood loss anemia: Ms. Garay experienced drop in her Hb in the past 8 days, during which she had a supratherpeutic INR to 7. 3 on 08/22, but corrected back to 1.5 at this time. Warfarin was held yesterday. Because there is limited evidence of an active GI bleed (occult positive stool), and no clear evidence of bleeding (BUN is at baseline, stools are formed, small, dark but on iron), most likely this represents a diffuse, slow ooze such as gastritis or a non GI site of bleeding either of which should stop with discontinuation of anticoagulation. Please transfuse, carefully document all I&Os. If any gross GI bleeding and further drop in blood indices, further increase in BUN, then we will consider urgent EGD. However, At this point, in light clear precipitating factor of supratherapeutic INR and significant comorbidities including recent CVA, COVID and multifocal pneumonia, risk of sedation and endoscopy likely outweighs benefits. We will plan for OP EGD/Colonoscopy in approx one month. GI will continue to follow along. I provided my cell phone number to the pt's RN and encouraged her to call me if any black/loose or bloody BMs. Present on Admission?: No Supervising Physician Co-Signing Physician Notes I have discussed the patient's management with the advanced practitioner. Please refer to the nurse practitioner's note for the documented findings and plan of care. No evidence of overt ongoing GI bleeding. Treat empirically with PPI. Monitor H/H. Resume AC in few days if H/H remains stable. OP scopes. Recall GI if needed. History of Present Illness Reason for Consultation: iron def. anemia/ may need scope Requesting Physician: Dr. Whyte Attending Physician: Booker Whyte History of Present Illness Ms. Zahida Garay is a 60 yr old female with a hx of Bipolar disease, A Fib on coumadin, Insulin dependant DM, Pulmonary HTN,distant Rt BKA, seeing the wound care clinic for a stump wound and a left sided ulcer as well, now COVID (+) on 08/12/20 with multifocal pneumonia on CXR yesterday. She experienced a thrombotic CVA a month ago and was a rehab at [facility] when she was transferred to [facility] on 08/15 for altered mental status, hypoglycemia. On arrival, INR was 3.1 but increased to 7/1 on 08/17/20. Coumadin was held (her most recent dose was yesterday 08/23 at 4:30PM. She passed a small black formed BM, yesterday that was occult positive but she has also been on po iron supplementation. I spoke with the pt's RN this morning, named "Abraham," She verifies the previously mentioned BM hx as correct. The pt underwent CT abd/pelvis yesterday w/o any evidence of retroperitoneal hemorrhage. Hb has decreased to 5.6 today, down from 9.4 on 08/15/20. BUN 52, Cr 1.69 today. A review of OP records from transfer to [place] for CVA in July show that her baseline is BUN 50, Cr 2.2. Allergies Allergy/AdvReac Type Severity Reaction Status Date / Time No Known Allergies Allergy Verified 08/15/20 10:22 Home Medications Medication Instructions Recorded Confirmed Type ascorbic acid (vitamin C) 500 mg 500 mg PO BID 08/03/20 08/15/20 History tablet aspirin 81 mg chewable tablet 81 mg PO DAILY 08/03/20 08/15/20 History atorvastatin 40 mg tablet 40 mg PO QPM 08/03/20 08/15/20 History bisacodyl 10 mg rectal suppository 10 mg ND DAILY PRN 08/03/20 08/15/20 History chlorpromazine 25 mg tablet 150 mg PO HS PRN tab 08/03/20 08/15/20 History cholecalciferol (vitamin D3) 50 50 mcg PO DAILY 08/03/20 08/15/20 History mcg (2,000 unit) capsule docusate sodium 100 mg capsule 100 mg PO BID 08/03/20 08/15/20 History ferrous fumarate 325 mg (106 mg 325 mg PO BID 08/03/20 08/15/20 History iron) tablet fluticasone fur. 200 mcg-umeclid 1 inh INHALATION DAILY 08/03/20 08/15/20 History 62.5 mcg-vilant 25 mcg inhalat.powder furosemide 40 mg tablet 40 mg PO BID 08/03/20 08/15/20 History glucagon (human recombinant) 1 1 mg SUBCUT Q20M PRN 08/03/20 08/15/20 History mg/mL solution for injection ipratropium 20 mcg-albuterol 100 1 puff INHALATION QID 08/03/20 08/15/20 History mcg/actuation mist for inhalation lidocaine 5 % topical patch 1 patch TOPICAL DAILY 08/03/20 08/15/20 History magnesium hydroxide 400 mg/5 mL 5 ml PO DAILY PRN 08/03/20 08/15/20 History oral suspension melatonin 3 mg capsule 3 mg PO HS PRN 08/03/20 08/15/20 History metoprolol succinate 25 mg 12.5 mg PO Q12H tab 08/03/20 08/15/20 History tablet,extended release 24 hr multivitamin 1 tab PO DAILY 08/03/20 08/15/20 History nicotine 7 mg/24 hr daily 1 patch TRANSDERMAL Q24H 08/03/20 08/15/20 History transdermal patch oxycodone 5 mg tablet 5 mg PO Q4H PRN 08/03/20 08/15/20 History polyethylene glycol 3350 17 17 g PO DAILY 08/03/20 08/15/20 History gram/dose oral powder sodium bicarbonate 650 mg tablet 650 mg PO BID 08/03/20 08/15/20 History tizanidine 2 mg capsule 2 mg PO Q8H PRN 08/03/20 08/15/20 History warfarin 3 mg tablet 3 mg PO DAILY 08/03/20 08/15/20 History zinc sulfate 220 mg PO DAILY 08/03/20 08/15/20 History ziprasidone HCl 20 mg capsule 20 mg PO BID 08/03/20 08/15/20 History insulin aspart U-100 [Novolog 1 sliding scale dose SUBCUT 08/18/20 08/18/20 History U-100 Insulin aspart] USEASDIRECTD insulin aspart U-100 [Novolog 15 unit SUBCUT TIDM 08/18/20 08/18/20 History U-100 Insulin aspart] insulin glargine [Lantus Solostar 20 unit SUBCUT BID 08/18/20 08/18/20 History U-100 Insulin] Patient History Medical History (Updated 08/24/20 @ 10:35 by SYLVIA Gramajo) Amputation of left great toe Atrial fibrillation and flutter Bipolar disorder delivery delivered CKD (chronic kidney disease), stage III CVA (cerebral vascular accident) Heart failure IDDM (insulin dependent diabetes mellitus) Insomnia Mitral valve regurgitation Pulmonary hypertension Stroke Surgical History Hx of right BKA Social History (Updated 08/16/20 @ 15:37 by Lambert Duarte MD) Smoking Status: Current every day smoker Tobacco Type: Cigarettes packs per day: 2; Years Smoked: 40; Second Hand Exposure: No; Hx Alcohol Use: No Hx Substance Use: Yes (coke and crack) Non-Prescribed Medications: Crack / Cocaine Last Used Substance Other:: 17 years ago Preferred Language: Georgian Communication Ability: Effective Beliefs That Will Affect Care: None marital status: Single Current Living Situation: Alone current occupational status: unemployed and disabled 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 Consult was completed by chart review and conversation with the pt's nurse. Results & Data ([facility]) Vital Signs (Past 12 Hours) Vital Signs Temp Pulse Resp BP Pulse Ox 08/24/20 07:43 36.6 C 82 20 131/87 100 08/23/20 23:40 36.3 C L 80 18 110/72 98 Laboratory Results WBC 7, Hb 5.6, Hct 18.2, Plts 268, Na 135, K4.1, BUN 52, Cr 1.69, gluose 100. Stool Occult (+), INR 1.5. Diagnostic Findings Non contrast CT abd/pelvis on 08/24/20: 1. Bilateral pleural effusions and bilateral pulmonary airspace opacities 2. Low volume ascites 3. Cholelithiasis and mild gallbladder wall thickening 4. Diffuse body wall edema/anasarca. 5. No evidence of retroperitoneal hemorrhage
[2020-08-24] MEDS ORDERED: EPOETIN ALFA 20,000 UNITS/ML VIAL SQ STA (10:38)
--- NOTE | 2020-08-24 10:38 | Nephrology Progress Note ---
Date of Service August 24, 2020 Assessment & Plan (1) Acute kidney injury: LAZ, hyperkalemia and hyponatremia resolved. Non oliguric, BP fair. --will give 1 dose of Epogen 72132 units today, already received venofer, but considering rapid critical drop in Hb, suggests at least 2 units of PRBC, may need GI eval Please contact if any further assistance needed. Thank you! (2) Chronic kidney disease: * Stage III CKD w/ baseline Cr ~ 2.2 * h/o nephrotic range proteinuria - likely underlying diabetic nephropathy * On NaHCO3 therapy to correct metabolic acidosis (3) Hyponatremia: * Improved following IV hydration Admission and Anticipated Discharge Date Admission Date: August 15, 2020 Miriam Teague was evaluated this am, no direct contact due to COVID isolation, labs, vitals and other clinical parameters reviewed, discussed with her nurse over telephone. Overall clinically stable although mildly SOB as Hb was critically low this am at <6. Hyperkalemia, hyponatremia resolved. Cr improved, back to baseline. UO acceptable, BP fair. Results & Data ([facility]) Vital Signs (Past 12 Hours) Vital Signs Temp Pulse Resp BP Pulse Ox 08/24/20 07:43 36.6 C 82 20 131/87 100 08/23/20 23:40 36.3 C L 80 18 110/72 98 PG Care Time/CCT Total # of Minutes Spent Total Time Spent with Patient: Total time spent is greater than 50% in coordination of care (as documented) at patient's floor/unit and/or counseling patient: Coding Level of Care Code 18908 Subseq Hosp Care Lvl 2 Diagnoses Acute kidney injury N17.9 Chronic kidney disease N18.9 Chronic kidney disease stage: unspecified stage Hyponatremia E87.1 (1) Chronic kidney disease Chronic kidney disease stage: unspecified stage Qualified Code(s): N18.9 - Chronic kidney disease, unspecified
[2020-08-24 10:44] LABS: INR 1.8 (0.9-1.1); Prothrombin Time 18.3 Seconds (9.0-12.0)
--- NOTE | 2020-08-24 11:19 | Pharmacy Report ---
Pharmacy Glycemic Short Note 2 - Date of Service August 24, 2020 - Glycemic Short BSG Results (Last 24 hours): OUTPATIENT ANTIDIABETIC REGIMEN: * Lantus 20 units SC BID * Novolog 15 units SC TIDM + SSI * A1c = 7.2% (08/16/2020) ASSESSMENT: * 60 yo F admitted on 08/16/20 secondary to COVID-19. * Patient has required approximately 45 units of insulin per day over the past 72 hours * Yesterday, patient received a total of 43 units of insulin * 15 units basal + 28 units bolus * BSGs were acceptable: [phone] mg/dL * Fasting BSG this AM was below goal at 100 mg/dL * I will decrease total basal dose slightly today PLAN FOR INPATIENT GLYCEMIC CONTROL: * Basal insulin - decreased by 20% * Lantus 12 units SQ AM * Bolus insulin - no change * NovoLog per scale ACHS or Q6hrs while NPO * Goal Range: Low 110 mg/dL - High 140 mg/dL * Correction Factor: 15 mg/dL/unit * Nutritional / Prandial insulin per carb ratio of 1 unit per 5 grams CHO consumed PLAN FOR DISCHARGE: * HbA1c = 7.2% on 08/16/20. * Recently reported that [facility], patient was experiencing hypoglycemia. * Recommend decreasing Lantus dosing to between 10-15 units in the morning and discontinuing HS Lantus dose. * Recommend continue Novolog sliding scale with meals and with BSG checks four times a day.
[2020-08-24] MEDS: PATIROMER CALCIUM SORBITEX 8.4 GM PACK PO SCH (12:51)
[2020-08-24] MEDS: ATORVASTATIN 40 MG TAB PO SCH (20:06)
[2020-08-24] MEDS: IPRATROPIUM BROMIDE HFA INHALER INH PRN (20:19)
[2020-08-24] MEDS: ALBUTEROL HFA 8 GM INHALER INH PRN (20:19)
[2020-08-24] MEDS ORDERED: INSULIN GLARGINE SOLOSTAR 100 UNITS/ML 3 ML PEN SC STA (21:33)
--- NOTE | 2020-08-24 21:45 | Hospitalist Progress Note ---
Date of Service August 24, 2020 Assessment & Plan (1) COVID-19: Pneumonia due to coronavirus disease 2019. Hypoxic on arrival, started on dexamethasone in the ED. Possibly had metabolic encephalopathy on admission, but now appears at baseline. - Presently off oxygen supplementation - Albuterol/Atrovent PRN - Not a candidate for remdesivir secondary to renal function - Stopped dexamethasone on 08/17 given stable on room air and clear detriment of her blood sugars. Currenlty on 2 liters nasal cannula. Main issue today is her anemia (2) Dental infection: On 08/18, patient reported left, upper tooth pain. CT face showed chronic sinus disease with moderate sized periapical cysts. - Added Augmentin on 08/20 after continued reports of dental pain. (3) Atrial fibrillation and flutter: Present at [facility] in 07/2020. - Continue metoprolol (increased to 25 mg PO Q12h on 08/21 - will hold warfarin. (4) Stroke: Was in [facility] for CVA, thought to be embolic from afib. - Continue ASA, statin - Monitor INR (5) Heart failure: Unclear whether this is systolic or diastolic. - Does not appear to be an acute exacerbation of heart failure - Hold Lasix - Echo pending - Not being done due to Covid status - Appears euvolemic today. (6) Hypertension associated with type 1 diabetes mellitus: BP at goal. - Continue metoprolol - Hold Lasix (7) IDDM (insulin dependent diabetes mellitus): A1c was 7.2%. - Glycemic pharmacist consulted - Basal/bolus now - Sugars low this morning after off steroids. Stopped all basal insulin on 08/21. (8) Mitral valve regurgitation: Unclear where this diagnosis is coming from. - Continue Toprol XL 25 mg PO BID - Echo pending as above - Hold Lasix with for now (Home dose is 40 mg PO BID) - Patient appears euvolemic on exam. 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 - Hold Lasix - Renally dose medications - Cr presently 2.1; at baseline as of 08/19. (10) Bipolar disorder: Stable at this time no acute needs. - Continue outpatient medications: chlorpromazine 150 mg PO HS PRN, melatonin PRN, tizanidine 2 mg PO Q8h PRN, ziprasidone 20 mg PO BID (11) Pressure ulcer of BKA stump, stage 2: Wound care consult for continued treatment. Looked at wound on 08/18; no erythema or warmth. Do not feel it is infected. 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 - As above (13) DVT prophylaxis: On warfarin for afib. (14) Anemia: Patient is having anemia. May have been worse with HEMODLITUION HOWEVER PATIENT DID HAVE BLEEDING PER RECTUM OVERNIGHT. consulted GI. will transfuse PRBC. Obtained consent for PRBC. (15) Hyponatremia: soidum improved with fluids will monitor. (16) Hyperkalemia: ordered IVF ordered valtessa as per nephrology given how patient has acute kidney injury, and hsitory of CHF. unable to order lasix at this time. Admission and Anticipated Discharge Date Admission Date: August 15, 2020 Subjective Patient reports feeling more fatigued today. Has no other complaints. Review of Systems Review of Systems: All systems reviewed & are unremarkable except as noted in HPI & below Physical Exam Physical Exam: Constitutional: WD/WN, vitals as above Eyes: EOM intact bilaterally; no conjunctival abnormality ENMT: external ear and nose normal, oropharynx normal Mouth: + poor dentition and + chipped teeth (Upper left side) Neck: trachea midline, no thyromegaly normal visual inspection Respiratory: normal respiratory effort, lungs clear to auscultation no respiratory distress Cardiovascular: RRR, no murmur, no edema Rate/Rhythm: regular rhythm and + tachycardic Heart Sounds: normal S1 and normal S2 Extremities: no edema Gastrointestinal (Abdomen): Inspection/Auscultation: abdomen normal to inspection; abdomen not distended Musculoskeletal: no cyanosis or clubbing, extremities motor strength 5/5 Skin: no rashes, warm and dry Neurologic: moves all extremities and awake Psychiatric: Orientation: alert, oriented to person and cooperative Results & Data Results & Data ([facility]) Vital Signs (Past 12 Hours) Vital Signs Temp Pulse Pulse Resp BP Pulse Ox 08/24/20 20:19 80 20 92 08/24/20 20:08 92 08/24/20 18:44 36.4 C L 82 14 139/93 98 08/24/20 18:15 36.6 C 86 16 145/88 H 100 08/24/20 18:14 36.8 C 84 18 147/90 H 99 08/24/20 17:58 36.8 C 86 16 151/102 H 97 08/24/20 17:39 36.7 C 91 H 20 158/114 H 95 08/24/20 17:28 36.7 C 89 14 163/103 H 100 08/24/20 16:44 36.5 C 88 18 160/91 H 98 08/24/20 15:44 36.7 C 94 H 18 157/93 H 100 08/24/20 14:44 36.4 C L 90 22 146/87 H 100 08/24/20 14:14 36.6 C 90 22 145/88 H 100 08/24/20 13:59 36.7 C 89 22 135/90 100 08/24/20 13:39 36.4 C L 88 22 127/84 100 PG Care Time/CCT Total # of Minutes Spent Total Time Spent with Patient: Total time spent is greater than 50% in coordination of care (as documented) at patient's floor/unit and/or counseling patient: Coding Level of Care Code 92067 Subseq Hosp Care Lvl 3 Diagnoses COVID-19 U07.1 Dental infection K04.7 Atrial fibrillation and flutter I48.91; I48.92 Stroke I63.9 Heart failure I50.32 Heart failure chronicity: chronic Heart failure type: diastolic Hypertension associated with type 1 diabetes mellitus E10.59; I15.2 IDDM (insulin dependent diabetes mellitus) Mitral valve regurgitation I34.0 Cardiac valve disease etiology: etiology unspecified CKD (chronic kidney disease), stage III N18.30 Chronic kidney disease stage 3 subtype: unspecified whether 3a or 3b Bipolar disorder F31.9 Active/Remission status: currently active Psychotic features: without psychotic features Pressure ulcer of BKA stump, stage 2 T87.89; L89.892 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, limited to breakdown of skin E08.621; L97.521 Diabetic foot ulcer location: toe DVT prophylaxis Z29.9 Anemia D64.9 Anemia type: unspecified type Hyponatremia E87.1 Hyperkalemia E87.5 Time Spent (min) 35 (1) Heart failure Heart failure chronicity: chronic Heart failure type: diastolic Qualified Code(s): I50.32 - Chronic diastolic (congestive) heart failure (2) CKD (chronic kidney disease), stage III Chronic kidney disease stage 3 subtype: unspecified whether 3a or 3b Qualified Code(s): N18.30 - Chronic kidney disease, stage 3 unspecified (3) Anemia Anemia type: unspecified type Qualified Code(s): D64.9 - Anemia, unspecified (4) Bipolar disorder Active/Remission status: currently active Psychotic features: without psychotic features (5) Mitral valve regurgitation Cardiac valve disease etiology: etiology unspecified Qualified Code(s): I34.0 - Nonrheumatic mitral (valve) insufficiency (6) 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
[2020-08-25] MEDS: INSULIN ASPART 100 UNITS/ML 3 ML PEN SC SCH ×5 (04:07→20:34)
[2020-08-25 07:18] LABS: Hematocrit (blood only) 30.6 % (37-47); Hemoglobin 9.8 g/dL (12.0-16.0); Mean Corpuscular Volume 81.2 fL (80-100); Mean Platelet Volume 9.2 fL (7.4-10.4); Nucleated RBC # (auto) 0.11 K/uL (0-0); Nucleated RBC % (auto) 1.2 %; Platelet Count 314 K/uL (130-400); RDW Coefficient of Variation 20.1 % (11.5-14.5); RDW Standard Deviation 57.5 fL (36.4-46.3); Red Blood Count 3.77 M/uL (4.2-5.4); White Blood Count 9.63 K/uL (4.8-10.8)
[2020-08-25 07:28] LABS: Albumin Level 1.7 gm/dl (3.4-5.0); BUN Creatinine Ratio 31.1 (10-20); Calcium 7.9 mg/dl (8.5-10.1); Creatinine Clr Calc Pharmacy 33.8 ml/min; Est GFR (African American) 28.2; Est GFR (Non-African American) 24.3; Phosphorus 3.7 mg/dl (2.5-4.9); Potassium 4.7 mmol/L (3.5-5.1)
[2020-08-25] MEDS: oxyCODONE HCL IR 5 MG TAB (IMMEDIATE RELEASE) PO PRN ×2 (07:34→17:02)
[2020-08-25] MEDS: AMOXICILLIN/CLAVULANATE 500 MG TAB PO SCH ×2 (08:55→16:58)
[2020-08-25] MEDS: FLUTICASONE FUROATE 200MCG 14 PUFFS/INHALER INH SCH (08:56)
[2020-08-25] MEDS: DOCUSATE SODIUM 100 MG CAP PO SCH ×2 (08:57→20:31)
[2020-08-25] MEDS: ASPIRIN 81 MG ECTAB PO SCH (08:57)
[2020-08-25] MEDS: LIDOCAINE 5% 1 PATCH TD SCH (08:58)
[2020-08-25] MEDS: FERROUS SULFATE 325 MG TAB PO SCH ×2 (08:58→20:31)
[2020-08-25] MEDS: MULTIVITAMIN TAB PO SCH (09:00)
[2020-08-25] MEDS ORDERED: INSULIN GLARGINE SOLOSTAR 100 UNITS/ML 3 ML PEN SC SCH (09:00)
[2020-08-25] MEDS: SODIUM CHLORIDE 0.65% NA SOLN 45 ML (OCEAN) NAE SCH ×3 (09:01→20:31)
[2020-08-25] MEDS: CHOLECALCIFEROL 1,000 UNITS 25 MCG TAB PO SCH (09:02)
[2020-08-25] MEDS: SODIUM BICARBONATE 650 MG TAB PO SCH ×3 (09:02→20:31)
[2020-08-25] MEDS: METOPROLOL SUCC 25MG EXT REL TAB PO SCH ×2 (09:02→20:31)
[2020-08-25] MEDS: tiZANidine HCL 4 MG TABLET PO PRN ×2 (09:03→20:38)
[2020-08-25] MEDS: UMECLIDINIUM/VILANTEROL 62.5/25MCG 7 PUFFS/INHALER INH SCH (09:09)
[2020-08-25] MEDS: POLYETHYLENE (MIRALAX) 17 GM PACK PO SCH (09:13)
--- NOTE | 2020-08-25 11:42 | Pharmacy Report ---
Pharmacy Glycemic Short Note 2 - Date of Service August 25, 2020 - Glycemic Short BSG Results (Last 24 hours): OUTPATIENT ANTIDIABETIC REGIMEN: * Lantus 20 units SC BID * Novolog 15 units SC TIDM + SSI * A1c = 7.2% (08/16/2020) ASSESSMENT: 08/25: * Zahida received a total of 85 units of insulin yesterday (this is double the total daily dose she received on 08/23) * 17 units basal + 68 units bolus * BSGs ranged 100 - 374 mg/dL - uncontrolled * BSGs have been erratic over the last 48 hours but most likely explanation for significant hyperglycemia yesterday would be the dose of Epogen that the patient received for anemia * Fasting BSG this AM as 109 mg/dL - controlled * Believe this patient requires approximately 15 - 20 units of basal insulin per day * Therefore, will increase her basal dose this morning in hopes of transitioning her to once daily basal * Given significant post-prandial hyperglycemia yesterday, will tighten carb ratio this morning * Of note, patients BSG was 327 mg/dL at dinner last night and her dinner Novolog was administered 2 hours late which may explain why BSG trending up to 374 mg/dL at bedtime 08/24: * 60 yo F admitted on 08/16/20 secondary to COVID-19. * Patient has required approximately 45 units of insulin per day over the past 72 hours * Yesterday, patient received a total of 43 units of insulin * 15 units basal + 28 units bolus * BSGs were acceptable: [phone] mg/dL * Fasting BSG this AM was below goal at 100 mg/dL * I will decrease total basal dose slightly today PLAN FOR INPATIENT GLYCEMIC CONTROL: * Basal insulin - increased AM basal * Lantus 15 units SQ AM * Lantus 0 - 5 units SQ HS per BSG - see eMAR for more details * Bolus insulin - tightened CR * NovoLog per scale ACHS or Q6hrs while NPO * Goal Range: Low 110 mg/dL - High 140 mg/dL * Correction Factor: 15 mg/dL/unit * Nutritional / Prandial insulin per carb ratio of 1 unit per 4 grams CHO consumed PLAN FOR DISCHARGE: * HbA1c = 7.2% on 08/16/20. * Recently reported that per group home records, patient was experiencing hypoglycemia. * Recommend SMBG 4 x per day * Recommend decreasing Lantus dosing to between 15 units in the morning and discontinuing HS Lantus dose. * Recommend decreasing Novolog to 10 units three times a day with meals * Recommend Novolog 5 units at bedtime plus the following sliding scale: * Blood Sugar = 70-150 --> administer 0 units * Blood Sugar = 151-200 --> administer 2 units * Blood Sugar = 201-250 --> administer 4 units * Blood Sugar = 251-300 --> administer 6 units * Blood Sugar = 301-350 --> administer 8 units * Blood Sugar = 351-400 --> administer 10 units * Blood Sugar > 400 --> administer 12 units and call MD
[2020-08-25] MEDS: PATIROMER CALCIUM SORBITEX 8.4 GM PACK PO SCH (13:27)
[2020-08-25] MEDS: ATORVASTATIN 40 MG TAB PO SCH (20:31)
[2020-08-25] MEDS: INSULIN GLARGINE SOLOSTAR 100 UNITS/ML 3 ML PEN SC SCH (20:33)
--- NOTE | 2020-08-25 22:26 | Hospitalist Progress Note ---
Date of Service August 25, 2020 Assessment & Plan (1) COVID-19: Pneumonia due to coronavirus disease 2019. Hypoxic on arrival, started on dexamethasone in the ED. Possibly had metabolic encephalopathy on admission, but now appears at baseline. - Presently off oxygen supplementation - Albuterol/Atrovent PRN - Not a candidate for remdesivir secondary to renal function - Stopped dexamethasone on 08/17 given stable on room air and clear detriment of her blood sugars. Currenlty on 2 liters nasal cannula. Main issue today is her anemia (2) Dental infection: On 08/18, patient reported left, upper tooth pain. CT face showed chronic sinus disease with moderate sized periapical cysts. - Added Augmentin on 08/20 after continued reports of dental pain. (3) Atrial fibrillation and flutter: Present at [facility] in 07/2020. - Continue metoprolol (increased to 25 mg PO Q12h on 08/21 - will hold warfarin. (4) Stroke: Was in [facility] for CVA, thought to be embolic from afib. - Continue ASA, statin - Monitor INR (5) Heart failure: Unclear whether this is systolic or diastolic. - Does not appear to be an acute exacerbation of heart failure - Hold Lasix - Echo pending - Not being done due to Covid status - Appears euvolemic today. (6) Hypertension associated with type 1 diabetes mellitus: BP at goal. - Continue metoprolol - Hold Lasix (7) IDDM (insulin dependent diabetes mellitus): A1c was 7.2%. - Glycemic pharmacist consulted - Basal/bolus now - Sugars low this morning after off steroids. Stopped all basal insulin on 08/21. (8) Mitral valve regurgitation: Unclear where this diagnosis is coming from. - Continue Toprol XL 25 mg PO BID - Echo pending as above - Hold Lasix with for now (Home dose is 40 mg PO BID) - Patient appears euvolemic on exam. (9) CKD (chronic kidney disease), stage III: Baseline [employer] QC reported at 2.2. - Hold Lasix - Renally dose medications - Cr presently 2.1; at baseline as of 08/25. (10) Bipolar disorder: Stable at this time no acute needs. - Continue outpatient medications: chlorpromazine 150 mg PO HS PRN, melatonin PRN, tizanidine 2 mg PO Q8h PRN, ziprasidone 20 mg PO BID (11) Pressure ulcer of BKA stump, stage 2: Wound care consult for continued treatment. Looked at wound on 08/18; no erythema or warmth. Do not feel it is infected. 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 - As above (13) DVT prophylaxis: held warfarin. (14) Anemia: Patient is having anemia. May have been worse with HEMODLITUION HOWEVER PATIENT DID HAVE BLEEDING PER RECTUM OVERNIGHT. consulted GI. S/P 2 PRBC. may consider scope if continues to bleed. (15) Hyponatremia: soidum improved with fluids will monitor. (16) Hyperkalemia: ordered IVF ordered valtessa as per nephrology given how patient has acute kidney injury, and hsitory of CHF. unable to order lasix at this time. Admission and Anticipated Discharge Date Admission Date: August 15, 2020 Subjective Patient is resting comfortably and has no new complaints. Review of Systems Review of Systems: All systems reviewed & are unremarkable except as noted in HPI & below Physical Exam Physical Exam: Constitutional: WD/WN, vitals as above Eyes: EOM intact bilaterally; no conjunctival abnormality ENMT: external ear and nose normal, oropharynx normal Mouth: + poor dentition and + chipped teeth (Upper left side) Neck: trachea midline, no thyromegaly normal visual inspection Respiratory: normal respiratory effort, lungs clear to auscultation no respiratory distress Cardiovascular: RRR, no murmur, no edema Rate/Rhythm: regular rhythm Heart Sounds: normal S1 and normal S2 Extremities: no edema Gastrointestinal (Abdomen): Inspection/Auscultation: abdomen normal to inspection; abdomen not distended Musculoskeletal: no cyanosis or clubbing, extremities motor strength 5/5 Skin: no rashes, warm and dry Neurologic: moves all extremities and awake Psychiatric: Orientation: alert, oriented to person and cooperative Results & Data Results & Data ([facility]) Vital Signs (Past 12 Hours) Vital Signs Temp Pulse Resp BP Pulse Ox 08/25/20 14:38 36.6 C 83 16 143/87 H 87 L 08/25/20 13:51 98 PG Care Time/CCT Total # of Minutes Spent Total Time Spent with Patient: Total time spent is greater than 50% in coordination of care (as documented) at patient's floor/unit and/or counseling patient: Coding Level of Care Code 63100 Subseq Hosp Care Lvl 2 Diagnoses COVID-19 U07.1 Dental infection K04.7 Atrial fibrillation and flutter I48.91; I48.92 Stroke I63.9 Heart failure I50.32 Heart failure chronicity: chronic Heart failure type: diastolic Hypertension associated with type 1 diabetes mellitus E10.59; I15.2 IDDM (insulin dependent diabetes mellitus) Mitral valve regurgitation I34.0 Cardiac valve disease etiology: etiology unspecified CKD (chronic kidney disease), stage III N18.30 Chronic kidney disease stage 3 subtype: unspecified whether 3a or 3b Bipolar disorder F31.9 Active/Remission status: currently active Psychotic features: without psychotic features Pressure ulcer of BKA stump, stage 2 T87.89; L89.892 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, limited to breakdown of skin E08.621; L97.521 Diabetic foot ulcer location: toe DVT prophylaxis Z29.9 Anemia D64.9 Anemia type: unspecified type Hyponatremia E87.1 Hyperkalemia E87.5 Time Spent (min) 25 (1) Heart failure Heart failure chronicity: chronic Heart failure type: diastolic Qualified Code(s): I50.32 - Chronic diastolic (congestive) heart failure (2) CKD (chronic kidney disease), stage III Chronic kidney disease stage 3 subtype: unspecified whether 3a or 3b Qualified Code(s): N18.30 - Chronic kidney disease, stage 3 unspecified (3) Anemia Anemia type: unspecified type Qualified Code(s): D64.9 - Anemia, unspecified (4) Bipolar disorder Active/Remission status: currently active Psychotic features: without psychotic features (5) Mitral valve regurgitation Cardiac valve disease etiology: etiology unspecified Qualified Code(s): I34.0 - Nonrheumatic mitral (valve) insufficiency (6) 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
[2020-08-26 06:02] LABS: Hematocrit (blood only) 30.7 % (37-47); Hemoglobin 9.6 g/dL (12.0-16.0); Mean Corpuscular Hemoglobin 25.8 pg (25-34); Mean Corpuscular Hgb Conc 31.3 g/dL (32-36); Mean Corpuscular Volume 82.5 fL (80-100); Mean Platelet Volume 9.3 fL (7.4-10.4); Nucleated RBC # (auto) 0.05 K/uL (0-0); Nucleated RBC % (auto) 0.6 %; Platelet Count 333 K/uL (130-400); RDW Coefficient of Variation 20.8 % (11.5-14.5); RDW Standard Deviation 59.7 fL (36.4-46.3); Red Blood Count 3.72 M/uL (4.2-5.4); White Blood Count 9.16 K/uL (4.8-10.8)
[2020-08-26 06:27] LABS: Albumin Level 1.7 gm/dl (3.4-5.0); BUN Creatinine Ratio 31.9 (10-20); Calcium 7.7 mg/dl (8.5-10.1); Creatinine Clr Calc Pharmacy 34.2 ml/min; Est GFR (African American) 28.7; Est GFR (Non-African American) 24.7; Potassium 4.4 mmol/L (3.5-5.1)
[2020-08-26 06:28] LABS: Phosphorus 3.7 mg/dl (2.5-4.9)
--- NOTE | 2020-08-26 07:57 | XRay Report ---
SINGLE VIEW CHEST CLINICAL HISTORY: Follow-up pneumonia. FINDINGS: An AP, portable, upright chest radiograph is compared to study dated 08/23/2020. The examina tion is degraded by portable technique and patient rotation. The heart is mildly enlarged. Multifoca l airspace consolidation is similar in appearance to be 08/23/2020 examination. Trace pleural effusion s are suspected. No pneumothorax is seen. The skeletal structures are osteopenic. The bony thorax is grossly intact. IMPRESSION: Multifocal airspace consolidation has not significantly changed from 08/23/2020. ACT 112: Negative or not required by law. Electronically signed by: Phil Alfaro M.D. 08/26/2020 7:56 AM
[2020-08-26] MEDS: MULTIVITAMIN TAB PO SCH (08:44)
[2020-08-26] MEDS: CHOLECALCIFEROL 1,000 UNITS 25 MCG TAB PO SCH (08:44)
[2020-08-26] MEDS: SODIUM BICARBONATE 650 MG TAB PO SCH ×3 (08:44→20:55)
[2020-08-26] MEDS: DOCUSATE SODIUM 100 MG CAP PO SCH ×2 (08:45→20:57)
[2020-08-26] MEDS: ASPIRIN 81 MG ECTAB PO SCH (08:45)
[2020-08-26] MEDS: FERROUS SULFATE 325 MG TAB PO SCH ×2 (08:45→20:58)
[2020-08-26] MEDS: METOPROLOL SUCC 25MG EXT REL TAB PO SCH ×2 (08:45→20:58)
[2020-08-26] MEDS: AMOXICILLIN/CLAVULANATE 500 MG TAB PO SCH ×2 (08:45→17:38)
[2020-08-26] MEDS: UMECLIDINIUM/VILANTEROL 62.5/25MCG 7 PUFFS/INHALER INH SCH (08:46)
[2020-08-26] MEDS: FLUTICASONE FUROATE 200MCG 14 PUFFS/INHALER INH SCH (08:46)
[2020-08-26] MEDS: LIDOCAINE 5% 1 PATCH TD SCH (08:46)
[2020-08-26] MEDS: SODIUM CHLORIDE 0.65% NA SOLN 45 ML (OCEAN) NAE SCH ×3 (08:47→20:56)
[2020-08-26] MEDS: tiZANidine HCL 4 MG TABLET PO PRN (08:50)
[2020-08-26] MEDS: oxyCODONE HCL IR 5 MG TAB (IMMEDIATE RELEASE) PO PRN ×2 (08:52→15:51)
[2020-08-26] MEDS: POLYETHYLENE (MIRALAX) 17 GM PACK PO SCH (08:53)
[2020-08-26] MEDS: INSULIN ASPART 100 UNITS/ML 3 ML PEN SC SCH ×4 (08:56→21:00)
[2020-08-26] MEDS ORDERED: INSULIN GLARGINE SOLOSTAR 100 UNITS/ML 3 ML PEN SC SCH (09:00)
--- NOTE | 2020-08-26 11:21 | Pharmacy Report ---
Pharmacy Glycemic Short Note 2 - Date of Service August 26, 2020 - Glycemic Short BSG Results (Last 24 hours): 08/25/20 08/25/20 08/25/20 12:29 17:00 20:24 Glucose POC Glucose 161 H 208 H 316 H* 08/25/20 08/26/20 08/26/20 20:25 05:45 07:58 Glucose 223 H POC Glucose 300 H 250 H OUTPATIENT ANTIDIABETIC REGIMEN: * Lantus 20 units SC BID * Novolog 15 units SC TIDM + SSI * A1c = 7.2% (08/16/2020) ASSESSMENT: 08/26: * Patient has received 65 units of insulin over the past 24hrs * 20 units of Lantus for basal insulin * 45 units of NovoLog for bolus insulin coverage (CF + CR) * BSGs [phone] mg/dl * AM fasting BSG is above goal range at 250mg/dl - likely basal deficient from holding basal insulin a few days ago secondary to LOW BSG. * Will continue to titrate conservatively * Post-prandial BSGs elevated- will tighten both CF/CR 08/25: * Zahida received a total of 85 units of insulin yesterday (this is double the total daily dose she received on 08/23) * 17 units basal + 68 units bolus * BSGs ranged 100 - 374 mg/dL - uncontrolled * BSGs have been erratic over the last 48 hours but most likely explanation for significant hyperglycemia yesterday would be the dose of Epogen that the patient received for anemia * Fasting BSG this AM as 109 mg/dL - controlled * Believe this patient requires approximately 15 - 20 units of basal insulin per day * Therefore, will increase her basal dose this morning in hopes of transitioning her to once daily basal * Given significant post-prandial hyperglycemia yesterday, will tighten carb ratio this morning * Of note, patients BSG was 327 mg/dL at dinner last night and her dinner Novolog was administered 2 hours late which may explain why BSG trending up to 374 mg/dL at bedtime 08/24: * 60 yo F admitted on 08/16/20 secondary to COVID-19. * Patient has required approximately 45 units of insulin per day over the past 72 hours * Yesterday, patient received a total of 43 units of insulin * 15 units basal + 28 units bolus * BSGs were acceptable: [phone] mg/dL * Fasting BSG this AM was below goal at 100 mg/dL * I will decrease total basal dose slightly today PLAN FOR INPATIENT GLYCEMIC CONTROL: * Basal insulin - increased AM basal * Lantus 20 units SQ AM * Lantus 0 - 5 units SQ HS per BSG - see eMAR for more details * Bolus insulin - tightened CF/CR * NovoLog per scale ACHS or Q6hrs while NPO * Goal Range: Low 110 mg/dL - High 140 mg/dL * Correction Factor: 10 mg/dL/unit * Nutritional / Prandial insulin per carb ratio of 1 unit per 3 grams CHO consumed PLAN FOR DISCHARGE: * HbA1c = 7.2% on 08/16/20. * Recently reported that [facility], patient was experiencing hypoglycemia. * Recommend SMBG 4 x per day * Recommend decreasing Lantus dosing to between 15 units in the morning and discontinuing HS Lantus dose. * Recommend decreasing Novolog to 10 units three times a day with meals * Recommend Novolog 5 units at bedtime plus the following sliding scale: * Blood Sugar = 70-150 --> administer 0 units * Blood Sugar = 151-200 --> administer 2 units * Blood Sugar = 201-250 --> administer 4 units * Blood Sugar = 251-300 --> administer 6 units * Blood Sugar = 301-350 --> administer 8 units * Blood Sugar = 351-400 --> administer 10 units * Blood Sugar > 400 --> administer 12 units and call
[2020-08-26] MEDS: PATIROMER CALCIUM SORBITEX 8.4 GM PACK PO SCH (12:10)
--- NOTE | 2020-08-26 18:55 | Hospitalist Progress Note ---
Date of Service August 26, 2020 Assessment & Plan (1) COVID-19: Pneumonia due to coronavirus disease 2019. Hypoxic on arrival, started on dexamethasone in the ED. Possibly had metabolic encephalopathy on admission, but now appears at baseline. - Presently off oxygen supplementation - Albuterol/Atrovent PRN - Not a candidate for remdesivir secondary to renal function - Stopped dexamethasone on 08/17 given stable on room air and clear detriment of her blood sugars. Currenlty on room air.. (2) Dental infection: On 08/18, patient reported left, upper tooth pain. CT face showed chronic sinus disease with moderate sized periapical cysts. - Added Augmentin on 08/20 after continued reports of dental pain. (3) Atrial fibrillation and flutter: Present at [facility] in 07/2020. - Continue metoprolol (increased to 25 mg PO Q12h on 08/21 - will hold warfarin given anemia. -required 2 PRBC on 08/24 due to anemia. (4) Stroke: Was in [facility] for CVA, thought to be embolic from afib. - Continue ASA, statin - Monitor INR (5) Heart failure: Unclear whether this is systolic or diastolic. - Does not appear to be an acute exacerbation of heart failure - Hold Lasix - Echo completedL severe tricuspid regurg and pulm HTN - Appears euvolemic today. (6) Hypertension associated with type 1 diabetes mellitus: BP at goal. - Continue metoprolol - Hold Lasix (7) IDDM (insulin dependent diabetes mellitus): A1c was 7.2%. - Glycemic pharmacist consulted - Basal/bolus now - Sugars low this morning after off steroids. Stopped all basal insulin on 08/21. (8) Mitral valve regurgitation: Unclear where this diagnosis is coming from. - Continue Toprol XL 25 mg PO BID - Echo pending as above - Hold Lasix with for now (Home dose is 40 mg PO BID) - Patient appears euvolemic on exam. (9) CKD (chronic kidney disease), stage III: Baseline [employer] reported at 2.2. - Hold Lasix - Renally dose medications - Cr presently 2.1; at baseline as of 08/25. (10) Bipolar disorder: Stable at this time no acute needs. - Continue outpatient medications: chlorpromazine 150 mg PO HS PRN, melatonin PRN, tizanidine 2 mg PO Q8h PRN, ziprasidone 20 mg PO BID (11) Pressure ulcer of BKA stump, stage 2: Wound care consult for continued treatment. Looked at wound on 08/18; no erythema or warmth. Do not feel it is infected. 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 - As above (13) DVT prophylaxis: held warfarin. (14) Anemia: Stable consulted GI. S/P 2 PRBC. may consider scope if continues to bleed. (15) Hyponatremia: soidum improved with fluids will monitor. (16) Hyperkalemia: resolved ordered IVF ordered valtessa as per nephrology given how patient has acute kidney injury, and hsitory of CHF. unable to order lasix at this time. Admission and Anticipated Discharge Date Admission Date: August 15, 2020 Subjective Patient reports feeling well She is breathing ok. Denies any SOB, nausea or vomiting Review of Systems Review of Systems: All systems reviewed & are unremarkable except as noted in HPI & below Physical Exam Physical Exam: Constitutional: WD/WN, vitals as above Eyes: EOM intact bilaterally; no conjunctival abnormality ENMT: external ear and nose normal, oropharynx normal Mouth: + poor dentition and + chipped teeth (Upper left side) Neck: trachea midline, no thyromegaly normal visual inspection Respiratory: normal respiratory effort, lungs clear to auscultation no respiratory distress Cardiovascular: RRR, no murmur, no edema Rate/Rhythm: regular rhythm Heart Sounds: normal S1 and normal S2 Extremities: no edema Gastrointestinal (Abdomen): Inspection/Auscultation: abdomen normal to inspection; abdomen not distended Musculoskeletal: no cyanosis or clubbing, extremities motor strength 5/5 Skin: no rashes, warm and dry Neurologic: moves all extremities and awake Psychiatric: Orientation: alert, oriented to person and cooperative Results & Data Results & Data ([facility]) Vital Signs (Past 12 Hours) Vital Signs Temp Pulse Resp BP BP Pulse Ox 08/26/20 15:47 36.8 C 87 18 151/96 H 96 08/26/20 07:14 36.8 C 81 21 140/94 95 PG Care Time/CCT Total # of Minutes Spent Total Time Spent with Patient: Total time spent is greater than 50% in coord ination of care (as documented) at patient's floor/unit and/or counseling patient: Coding Level of Care Code 44476 Subseq Hosp Care Lvl 3 Diagnoses COVID-19 U07.1 Dental infection K04.7 Atrial fibrillation and flutter I48.91; I48.92 Stroke I63.9 Heart failure I50.32 Heart failure chronicity: chronic Heart failure type: diastolic Hypertension associated with type 1 diabetes mellitus E10.59; I15.2 IDDM (insulin dependent diabetes mellitus) Mitral valve regurgitation I34.0 Cardiac valve disease etiology: etiology unspecified CKD (chronic kidney disease), stage III N18.30 Chronic kidney disease stage 3 subtype: unspecified whether 3a or 3b Bipolar disorder F31.9 Active/Remission status: currently active Psychotic features: without psychotic features Pressure ulcer of BKA stump, stage 2 T87.89; L89.892 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, limited to breakdown of skin E08.621; L97.521 Diabetic foot ulcer location: toe DVT prophylaxis Z29.9 Anemia D64.9 Anemia type: unspecified type Hyponatremia E87.1 Hyperkalemia E87.5 (1) Heart failure Heart failure chronicity: chronic Heart failure type: diastolic Qualified Code(s): I50.32 - Chronic diastolic (congestive) heart failure (2) CKD (chronic kidney disease), stage III Chronic kidney disease stage 3 subtype: unspecified whether 3a or 3b Qualified Code(s): N18.30 - Chronic kidney disease, stage 3 unspecified (3) Anemia Anemia type: unspecified type Qualified Code(s): D64.9 - Anemia, unspecified (4) Bipolar disorder Active/Remission status: currently active Psychotic features: without p sychotic features (5) Mitral valve regurgitation Cardiac valve disease etiology: etiology unspecified Qualified Code(s): I34.0 - Nonrheumatic mitral (valve) insufficiency (6) Diabetic ulcer of left foot associated with diabetes mellitus due to und erlying condition, limited to breakdown of skin Diabetic foot ulcer location: toe Qualified Code(s): E08.621 - Diabetes mellitus due to underlying condition with foot ulcer; L97.521 - Non-pressure chronic ulcer of other part of left foot limited to breakdown of skin
[2020-08-26] MEDS: ATORVASTATIN 40 MG TAB PO SCH (20:59)
[2020-08-26] MEDS: INSULIN GLARGINE SOLOSTAR 100 UNITS/ML 3 ML PEN SC SCH (21:03)
[2020-08-27] MEDS ORDERED: INSULIN ASPART 100 UNITS/ML 3 ML PEN SC ONE (02:00)
[2020-08-27 06:17] LABS: Albumin Level 1.7 gm/dl (3.4-5.0); BUN Creatinine Ratio 32.6 (10-20); Creatinine Clr Calc Pharmacy 37.6 ml/min; Est GFR (African American) 32.1; Est GFR (Non-African American) 27.7; Phosphorus 3.2 mg/dl (2.5-4.9)
[2020-08-27 07:25] LABS: Hematocrit (blood only) 30.4 % (37-47); Hemoglobin 9.8 g/dL (12.0-16.0); Mean Corpuscular Hemoglobin 26.7 pg (25-34); Mean Corpuscular Hgb Conc 32.2 g/dL (32-36); Mean Corpuscular Volume 82.8 fL (80-100); Mean Platelet Volume 9.4 fL (7.4-10.4); Platelet Count 324 K/uL (130-400); RDW Coefficient of Variation 21.9 % (11.5-14.5); RDW Standard Deviation 60.8 fL (36.4-46.3); Red Blood Count 3.67 M/uL (4.2-5.4); White Blood Count 7.84 K/uL (4.8-10.8)
[2020-08-27] MEDS: oxyCODONE HCL IR 5 MG TAB (IMMEDIATE RELEASE) PO PRN ×2 (08:14→18:26)
[2020-08-27] MEDS: METOPROLOL SUCC 25MG EXT REL TAB PO SCH (08:15)
[2020-08-27] MEDS: FERROUS SULFATE 325 MG TAB PO SCH (08:15)
[2020-08-27] MEDS: ASPIRIN 81 MG ECTAB PO SCH (08:15)
[2020-08-27] MEDS: MULTIVITAMIN TAB PO SCH (08:15)
[2020-08-27] MEDS: DOCUSATE SODIUM 100 MG CAP PO SCH (08:16)
[2020-08-27] MEDS: AMOXICILLIN/CLAVULANATE 500 MG TAB PO SCH ×2 (08:16→17:57)
[2020-08-27] MEDS: CHOLECALCIFEROL 1,000 UNITS 25 MCG TAB PO SCH (08:17)
[2020-08-27] MEDS: SODIUM BICARBONATE 650 MG TAB PO SCH ×2 (08:17→13:02)
[2020-08-27] MEDS: LIDOCAINE 5% 1 PATCH TD SCH (08:18)
[2020-08-27] MEDS: POLYETHYLENE (MIRALAX) 17 GM PACK PO SCH (08:18)
[2020-08-27] MEDS: SODIUM CHLORIDE 0.65% NA SOLN 45 ML (OCEAN) NAE SCH ×2 (08:18→12:58)
[2020-08-27] MEDS: UMECLIDINIUM/VILANTEROL 62.5/25MCG 7 PUFFS/INHALER INH SCH (08:19)
[2020-08-27] MEDS: FLUTICASONE FUROATE 200MCG 14 PUFFS/INHALER INH SCH (08:19)
[2020-08-27] MEDS: tiZANidine HCL 4 MG TABLET PO PRN (08:20)
[2020-08-27] MEDS: INSULIN ASPART 100 UNITS/ML 3 ML PEN SC SCH ×3 (08:24→17:58)
[2020-08-27] MEDS ORDERED: INSULIN GLARGINE SOLOSTAR 100 UNITS/ML 3 ML PEN SC SCH (09:00)
--- NOTE | 2020-08-27 09:58 | Pharmacy Report ---
Pharmacy Glycemic Short Note 2 - Date of Service August 27, 2020 - Glycemic Short BSG Results (Last 24 hours): 08/26/20 08/26/20 08/26/20 12:00 17:06 20:38 Glucose POC Glucose 294 H 268 H 339 H* 08/26/20 08/27/20 08/27/20 20:40 01:57 05:43 Glucose 198 H POC Glucose 324 H* 230 H 08/27/20 08:09 Glucose POC Glucose 189 H OUTPATIENT ANTIDIABETIC REGIMEN: * Lantus 20 units SC BID * Novolog 15 units SC TIDM + SSI * A1c = 7.2% (08/16/2020) ASSESSMENT: 08/27: * Patient has received 139 units of insulin over the past 24hrs * 25 units of Lantus for basal insulin * 114 units of NovoLog for bolus insulin coverage (CF + CR) * BSGs [phone] mg/dl * AM fasting BSG is above goal range at 250mg/dl - likely basal deficient from holding basal insulin a few days ago secondary to LOW BSG. * Will continue to titrate conservatively since patient had significant LOW BSGs with 15-20 units of basal on board. * Post-prandial BSGs elevated- will tighten both CF/CR 08/26: * Patient has received 65 units of insulin over the past 24hrs * 20 units of Lantus for basal insulin * 45 units of NovoLog for bolus insulin coverage (CF + CR) * BSGs [phone] mg/dl * AM fasting BSG is above goal range at 250mg/dl - likely basal deficient from holding basal insulin a few days ago secondary to LOW BSG. * Will continue to titrate conservatively * Post-prandial BSGs elevated- will tighten both CF/CR 08/25: * Zahida received a total of 85 units of insulin yesterday (this is double the total daily dose she received on 08/23) * 17 units basal + 68 units bolus * BSGs ranged 100 - 374 mg/dL - uncontrolled * BSGs have been erratic over the last 48 hours but most likely explanation for significant hyperglycemia yesterday would be the dose of Epogen that the patient received for anemia * Fasting BSG this AM as 109 mg/dL - controlled * Believe this patient requires approximately 15 - 20 units of basal insulin per day * Therefore, will increase her basal dose this morning in hopes of transitioning her to once daily basal * Given significant post-prandial hyperglycemia yesterday, will tighten carb ratio this morning * Of note, patients BSG was 327 mg/dL at dinner last night and her dinner Novolog was administered 2 hours late which may explain why BSG trending up to 374 mg/dL at bedtime 08/24: * 60 yo F admitted on 08/16/20 secondary to COVID-19. * Patient has required approximately 45 units of insulin per day over the past 72 hours * Yesterday, patient received a total of 43 units of insulin * 15 units basal + 28 units bolus * BSGs were acceptable: [phone] mg/dL * Fasting BSG this AM was below goal at 100 mg/dL * I will decrease total basal dose slightly today PLAN FOR INPATIENT GLYCEMIC CONTROL: * Basal insulin - increased AM basal * Lantus 30 units SQ AM * Lantus 0 - 5 units SQ HS per BSG - see eMAR for more details * Bolus insulin - tightened CF/CR * NovoLog per scale ACHS or Q6hrs while NPO * Goal Range: Low 110 mg/dL - High 140 mg/dL * Correction Factor: 9 mg/dL/unit * Nutritional / Prandial insulin per carb ratio of 1 unit per 2 grams CHO consumed PLAN FOR DISCHARGE: * HbA1c = 7.2% on 08/16/20. * Recently reported that per long term records, patient was experiencing hypoglycemia. * Recommend SMBG 4 x per day * Recommend decreasing Lantus dosing to between 20-30 units in the morning and discontinuing HS Lantus dose. * Recommend continuing Novolog to 15 units three times a day with meals * Recommend Novolog 5 units at bedtime plus the following sliding scale: * Blood Sugar = 70-150 --> administer 0 units * Blood Sugar = 151-200 --> administer 2 units * Blood Sugar = 201-250 --> administer 4 units * Blood Sugar = 251-300 --> administer 6 units * Blood Sugar = 301-350 --> administer 8 units * Blood Sugar = 351-400 --> administer 10 units * Blood Sugar > 400 --> administer 12 units and call
[2020-08-27] MEDS ORDERED: INSULIN GLARGINE SOLOSTAR 100 UNITS/ML 3 ML PEN SC ONE (12:30)
[2020-08-27] MEDS: PATIROMER CALCIUM SORBITEX 8.4 GM PACK PO SCH (12:31)
--- NOTE | 2020-08-30 10:33 | Discharge Summary ---
Date of Service August 27, 2020 Admission HPI Per Admitting Provider 60 YOF who arrives to the emergency room from [facility]. Patient is a poor historian and poor ability to recall dates. Most of this information was obtained from chart review. Patient is a positive smoker of 1.5-2 packs per day. The patient has a history of DM, HfPref, Rt. BKA, Left Metatarsal Necrosis, Afib (recently started on Warfin), Stroke, and hemolytic anemia/warm antibodies, bipolar and history of cocaine use. Patient recently had a stroke last month presumably from atrial fibrillation and was placed on warfarin, patient is in NSR via telemetry and 12 lead ECG at this time. The patient can not recall why she came to the emergency room or how she got here, but knew she was in the hospital. Patient was brought in by EMS from [facility] secondary to altered mental status and was found to be hypoglycemic in the 40s. Recently tested for COVID 19 which was positive per the patient and EMD provider report. Patient states that her test resulted yesterday however, unable to verify result. Simi ent is currently being followed by wound management for left first metatarsal wound, and a right stump wound. She is MRSA positive from wounds on her foot and her stump. She is unable to wear her prosthesis secondary to recent stump infection. Patient is normally independant with bathing, feeding, and hygiene, but requires assistance with transfer and mobility. Noted residual effects from stroke are facial droop on the right side, dysarthria, and weakness to right side, patient does endorse that this is her baseline since her stroke. Patient on evaluation has a Qsofa of 1, noted hyponatremia, LAZ and microcytic anemaia, and hypoxia on arrival to the ED with SOP2 88% placed on oxygen with SPO2 99- 100% on 2lNC, and supratherapeutic on her INR at 3.1. In the emergency department she received dextrsoe 50% 50 ml, glucagon 1mg, dexamethasone. Principal Diagnosis COVID 19 infection Discharge Exam Constitutional well developed and well nourished; no acute distress Neck trachea midline, no thyromegaly Respiratory normal respiratory effort, lungs clear to auscultation Cardiovascular RRR, no murmur, no edema Gastrointestinal (Abdomen) normal bowel sounds, soft, nontender, no hepatosplenomegaly Musculoskeletal Head/Neck/Chest: normocephalic, head atraumatic and neck supple Extremities: strength 5/5 throughout and + amputation noted; no cyanosis and no clubbing Skin no rashes, warm and dry Neurologic patellar DTR's 2+ bilat, sensation intact and PERRL, EOMI, accommodation nl, no face palsy, no dysarthria Discharge Data Allergies Allergy/AdvReac Type Severity Reaction Status Date / Time No Known Allergies Allergy Verified 08/15/20 10:22 Consultations 08/15/20 12:56 ED Decision to Admit Stat 08/24/20 09:29 Consult Gastroenterology Routine Ordered Studies 08/15/20 21:18 US renal/blad retro comp Routine 08/18/20 15:56 CT facial bones wo con Routine 08/23/20 09:44 CT abd pelvis wo con Routine Hospital Course (1) COVID-19: Pneumonia due to coronavirus disease 2019. Hypoxic on arrival, started on dexamethasone in the ED. Possibly had metabolic encephalopathy on admission, but now appears at baseline. - Presently off oxygen supplementation - Albuterol/Atrovent PRN - Not a candidate for remdesivir secondary to renal function - Stopped dexamethasone on 08/17 given stable on room air (2) Dental infection: On 08/18, patient reported left, upper tooth pain. CT face showed chronic sinus disease with moderate sized periapical cysts. - Added Augmentin on 08/20 after continued reports of dental pain. completed full course of antibiotics, no further treatment needed (3) Atrial fibrillation and flutter: Present at [facility] in 07/2020. - Continue metoprolol (increased to 25 mg PO Q12h on 08/21 - held warfarin given anemia. -required 2 PRBC on 08/24 due to anemia, Hb has now been stable for days no signs of bleeding resume warfarin 3mg daily, check INR at rehab (4) Stroke: Was in [facility] for CVA, thought to be embolic from afib. - Continue ASA, statin - resume warfarin and monitor INR, goal would be 2-2.5 (5) Heart failure: Unclear whether this is systolic or diastolic. - Does not appear to be an acute exacerbation of heart failure - Hold Lasix - Echo completedL severe tricuspid regurg and pulm HTN - Appears euvolemic today. (6) Hypertension associated with type 1 diabetes mellitus: BP at goal. - Continue metoprolol - Hold Lasix (7) IDDM (insulin dependent diabetes mellitus): A1c was 7.2%. - Glycemic pharmacist consulted - Basal/bolus now - Sugars low this morning after off steroids. Stopped all basal insulin on 08/21. (8) Mitral valve regurgitation: Unclear where this diagnosis is coming from. - Continue Toprol XL 25 mg PO BID - Echo pending as above - Hold Lasix with for now (Home dose is 40 mg PO BID) - Patient appears euvolemic on exam. 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 - Renally dose medications - Cr at baseline (10) Bipolar disorder: Stable at this time no acute needs. - Continue outpatient medications: chlorpromazine 150 mg PO HS PRN, melatonin PRN, tizanidine 2 mg PO Q8h PRN, ziprasidone 20 mg PO BID (11) Pressure ulcer of BKA stump, stage 2: Wound care consult for continued treatment. Looked at wound on 08/18; no erythema or warmth. Do not feel it is infected. 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 - As above (13) Anemia: Stable consulted GI. S/P 2 PRBC. Hb has been stable for days (14) Hyponatremia: soidum improved with fluids will monitor. (15) Hyperkalemia: resolved Total Time Total Time Spent Total Time Spent (In Minutes): 32 minutes Total Time Includes: Examination of the Patient, Discharge Planning and Medication Reconciliation Discharge Plan Discharge Items Patient Disposition: Transfer Inpatient Rehab Fac Reason For Visit: COVID-19,SEPSIS,HYPONATREMIA,LAZ Discharge Diagnosis: COVID 19 Acute blood loss anemia, resolved Acute kidney injury Hyponatremia Condition on Discharge: Good Goals: improve strength and mobility Activity: Resume your previous activity Non-emergency contact: Primary Care Provider Call non-emergency contact if: you have any medication questions Follow-up/Referrals: [facility] [Primary Care Provider] - Diet: Carb Consistent or DM2 and Heart Healthy Addtl Attending Provider Instructions: Medications: - TOPROL: dose increased from 12.5mg to 25mg twice a day - WARFARIN: resume at 3mg daily, check INR every three days until therapeutic - LANTUS: dose changed to 30 units in the morning - SALINE SPRAY: continue to keep nose moist, use three times a day for a week COVID 19 infection: no hypoxia, infection is resolved, no need for isolation History of atrial fibrillation/flutter, on warfarin chronically rate control with Toprol warfarin was held during admission due to nose bleed, this has been resolved for over a week will resume warfarin, observe for any signs of bleeding unfortunately the patient needs anticoagulation due to history of embolic stroke due to afib Acute kidney injury: resolved, Cr is stable at 1.9, baseline has CKD stage III due to DM she is euvolemic without using Lasix, she was previously prescribed 40 twice a day is she becomes edematous would resume Lasix 40mg daily Pending Studies at Discharge: No Stand-Alone Forms: My [facility] Skilled Items Patient informed of condition?: Yes DNR: No Discharge Level of Care: Acute rehab Communicable Disease: No Discharge Prognosis: Stable Lines: None Urinary Catheter: No Medications and DC Order Prescriptions: New metoprolol succinate 25 mg Tablet Extended Release 24 Hr 25 mg PO Q12 30 Days Qty: 60 RF: 3 sodium chloride [Saline Mist] 0.65 % Aerosol,[place] 2 spray TODD TID 7 Days Qty: 30 RF: 1 Continued ipratropium-albuterol 20-100 mcg/actuation mist 1 puff inhalation QID RF: 0 ascorbic acid (vitamin C) 500 mg tablet 500 mg PO BID RF: 0 aspirin 81 mg tablet,chewable 81 mg PO DAILY RF: 0 atorvastatin 40 mg tablet 40 mg PO QPM RF: 0 bisacodyl 10 mg suppository 10 mg AR DAILY PRN (Reason: Constipation) RF: 0 chlorpromazine 25 mg tablet 150 mg PO HS PRN (Reason: Anxiety) RF: 0 cholecalciferol (vitamin D3) 50 mcg (2,000 unit) capsule 50 mcg PO DAILY RF: 0 docusate sodium 100 mg capsule 100 mg PO BID RF: 0 ferrous fumarate 325 mg (106 mg iron) tablet 325 mg PO BID RF: 0 Trelegy Ellipta 200-62.5-25 mcg blister with device 1 inh inhalation DAILY RF: 0 GlucaGen Diagnostic Kit 1 mg/mL recon soln 1 mg subcut Q20M PRN (Reason: ) RF: 0 lidocaine 5 % adhesive patch,medicated 1 patch topical DAILY RF: 0 magnesium hydroxide [Milk of Magnesia] 400 mg/5 mL suspension 5 ml PO DAILY PRN (Reason: ) RF: 0 melatonin 3 mg capsule 3 mg PO HS PRN (Reason: ) RF: 0 multivitamin Tablet 1 tab PO DAILY RF: 0 nicotine 7 mg/24 hr patch 24 hour 1 patch transdermal Q24H RF: 0 warfarin 3 mg tablet 3 mg PO DAILY RF: 0 oxycodone 5 mg tablet 5 mg PO Q4H PRN (Reason: Pain) RF: 0 polyethylene glycol 3350 [Miralax] 17 gram/dose powder 17 g PO DAILY RF: 0 sodium bicarbonate 650 mg tablet 650 mg PO BID RF: 0 tizanidine 2 mg capsule 2 mg PO Q8H PRN (Reason: ) RF: 0 zinc sulfate 220 (50) mg capsule 220 mg PO DAILY RF: 0 ziprasidone HCl 20 mg capsule 20 mg PO BID RF: 0 insulin aspart U-100 [Novolog U-100 Insulin aspart] 100 unit/mL Solution 15 unit SUBCUT TIDM RF: 0 insulin aspart U-100 [Novolog U-100 Insulin aspart] 100 unit/mL Solution 1 sliding scale dose SUBCUT USEASDIRECTD RF: 0 Discontinued furosemide 40 mg tablet 40 mg PO BID RF: 0 metoprolol succinate 25 mg tablet extended release 24 hr 12.5 mg PO Q12H RF: 0 Lantus Solostar U-100 Insulin 100 unit/mL (3 mL) insulin pen 20 unit SUBCUT BID RF: 0 Discharge Orders: Discharge Order (Routine); Ordered 08/27/20 Ordered By: Mookie Gomez Admission Data Admit Date/Time: 08/15/20 14:18 Attending Provider: Mookie Gomez Admit Provider: Pramod Ramos Primary Care Provider: [facility] Other Providers: Cristiano Carbajal ; Pramod Ramos ; Oral Flores Other Interventions: Discharge Summary Assessment (RN) Last Done: 08/27/20 14:28 Coding Level of Care Code D/C Day Management >30 mins Diagnoses COVID-19 U07.1 Dental infection K04.7 Atrial fibrillation and flutter I48.91; I48.92 Stroke I63.9 Heart failure I50.32 Heart failure chronicity: chronic Heart failure type: diastolic Hypertension associated with type 1 diabetes mellitus E10.59; I15.2 IDDM (insulin dependent diabetes mellitus) Mitral valve regurgitation I34.0 Cardiac valve disease etiology: etiology unspecified CKD (chronic kidney disease), stage III N18.30 Chronic kidney disease stage 3 subtype: unspecified whether 3a or 3b Bipolar disorder F31.9 Active/Remission status: currently active Psychotic features: without psychotic features Pressure ulcer of BKA stump, stage 2 T87.89; L89.892 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, limited to breakdown of skin E08.621; L97.521 Diabetic foot ulcer location: toe Anemia D64.9 Anemia type: unspecified type Hyponatremia E87.1 Hyperkalemia E87.5
== END 2020-08-27 18:30 | DRG 177 ==
LOC: ED 09:19 → SUATTDRO 14:18 → 2S 14:18 → 3E 08-20 20:10

== ENCOUNTER 2020-10-07 13:43 | Inpatient (IN) ==
[2020-10-07] MEDS ORDERED: SODIUM CHLORIDE 0.9% 1000ML 1,000 ML IV SCH (14:15)
--- NOTE | 2020-10-07 14:34 | XRay Report ---
SINGLE VIEW CHEST CLINICAL HISTORY: Sepsis. FINDINGS: 2 AP, portable, upright chest radiographs are compared to study dated 08/26/2020. The examin ation is degraded by portable technique and patient rotation. The heart is mildly enlarged. Multifoca l airspace opacities are seen throughout both lungs. This is increasingly confluent as compared to th e 08/26/2020 examination. Small pleural effusions are noted. No pneumothorax is seen. The skeletal str uctures are osteopenic. The bony thorax is grossly intact. IMPRESSION: 1. Multifocal airspace opacities are increasingly confluent as compared to 08/26/2020. This could repr esent multifocal pneumonia and/or pulmonary edema. Clinical correlation will be required. 2. Cardiomegaly and small pleural effusions. ACT 112: Negative or not required by law. Electronically signed by: Phil Alfaro M.D. 10/07/2020 2:33 PM
--- NOTE | 2020-10-07 14:44 | Emergency Department Note ---
Impression & Plan SOB (shortness of breath), Hypoxia ED Provider Note INFORMANT: Patient ED PROVIDER(S): Bhavesh Lackey MD CHIEF COMPLAINT: Lethargy PLAN: Disposition: Admitted Condition: Guarded Outpatient prescription management: none Referral: None MEDICAL DECISION MAKING: Patient presented due to lethargy and hypoxia noted at her nursing facility. They were concerned that she was treated for pneumonia. The patient was not febrile. She had mild increased work of breathing. She did have edema present. Chest x-ray was concerning for pulmonary edema. The patient had no leukocytosis and had a normal procalcitonin. This would make infection less likely. Her BNP was significantly elevated raising concerns for CHF. Ammonia was minimally elevated. The patient did receive IV Lasix as well as Nitropaste as she was hypertensive. The patient did not receive any maintenance fluids. Patient did complain of some abdominal discomfort. CT imaging did reveal effusions and raise questions about a multifocal pneumonia. It appears to be more consistent with asymmetric pulmonary edema. Radiology also question mild proctitis. Triage Nursing notes reviewed and agree them. Vital Signs: reviewed and remarkable for tachypnea Differential diagnosis: Reactive airway disease, pneumonia, pneumothorax, COPD, CHF, infections, cardiac ischemia, pulmonary embolism, musculoskeletal, gastrointestinal, as well as other pathologies. Diagnostics interpreted by me: ECG:Rate:85 Rhythm:Normal sinus [place]:Normal QRS:Normal ST segements:No elevation or depression Other:No PACs or PVCs Cardiac Monitoring:Cardiac monitoring ordered by me: The patient was placed on continuous cardiac monitoring and observed. It revealed a normal sinus rhythm at 82 beats per minute without ectopy or evidence of dysrhythmia. Imaging studies: Consultation(s): [facility], Dr. Ramos HPI: The patient is a 60 year old female who presents to the Emergency Room with complaints of lethargy. This started today at her [facility]. She had a stroke and Covid reportedly 2 month ago. Went from [place] to rehab then to the [facility]. Patient notes SOB, but states all the time due to COPD. The NH noted sats in the 80's. Was diagnosed with PNA a week ago and placed on zithromax. EMS also noted she was on fluid restriction. She also abdominal pain for weeks. Current pain is rated as 6/10. Pt denies LOC, headache, fevers, chills, diaphoresis, visual changes, neck pain, chest pain, nausea, vomiting, back pain, melena, hematochezia, urinary symptoms, numbness, weakness, lymphadenopathy, rash, or other complaints. ROS: See above HPI for pertinent positives & negatives. A total of 10 systems reviewed and were otherwise negative. PAST MEDICAL HISTORY:See Below , IDDM, covid PAST SURGICAL HISTORY:See Below, right BKA FAMILY HISTORY:See Below SOCIAL HISTORY:See Below, former smoker HOME MEDICATIONS:See Below ALLERGIES:See Below VITALS:See Below PHYSICAL EXAMINATION: GENERAL: Awake, alert, uncomfortable-appearing, in no distress HENT: Normocephalic, atraumatic. Oropharynx unremarkable. EYES: Normal conjunctiva. Sclera non-icteric. NECK: Inspection normal. Non-tender. Supple. No nuchal rigidity. FROM. No masses. RESPIRATORY: Scattered rales. No wheezes. Increased respiratory effort. CARDIAC: Normal rate. Normal rhythm. No murmurs. No rubs. Extremities warm and well perfused. Pulses equal. No JVD. GI: Soft, non-distended. Generalized mild tenderness to palpation. No rebound or guarding. No masses. RECTAL: Deferred. MUSCULOSKELETAL: Atraumatic. Chest examination reveals no tenderness. The back is symmetrical on inspection without obvious abnormality. There is no CVA tenderness to palpation. No joint edema. LOWER EXTREMITIES: left side 1+edema. Right BKA present. NEURO: Normal sensorium. No sensory or motor deficits noted. SKIN: No rash or jaundice noted. Bhavesh Lackey MD Past Med/Surg History Medical History (Updated 10/07/20 @ 14:38 by Bhavesh Lackey MD) Acute alteration in mental status Amputation of left great toe Atrial fibrillation and flutter Bipolar disorder delivery delivered CKD (chronic kidney disease), stage III CVA (cerebral vascular accident) Heart failure Hypoglycemia Hypoxemia IDDM (insulin dependent diabetes mellitus) Insomnia Mitral valve regurgitation Pneumonia due to 2019 novel coronavirus Pulmonary hypertension Stroke Surgical History Hx of right BKA Social History (Updated 08/16/20 @ 15:37 by Lambert Duarte MD) Smoking Status: Former smoker Tobacco Type: Cigarettes packs per day: 2; Years Smoked: 40; Second Hand Exposure: No; Hx Alcohol Use: No Hx Substance Use: Yes (coke and crack) Non-Prescribed Medications: Crack / Cocaine Last Used Substance Other:: 17 years ago Preferred Language: Ukrainian Communication Ability: Effective Beliefs That Will Affect Care: None marital status: Single Current Living Situation: Alone current occupational status: unemployed and disabled 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 How many Children do You have: 2 Feels Safe at Home: Yes caffeine: Yes Dental Care, Regularly: No Assistive Devices: None Allergies Allergies Allergy/AdvReac Type Severity Reaction Status Date / Time shellfish derived Allergy Unknown Unknown Verified 10/07/20 15:51 Home Meds Home Medications Medication Instructions Recorded Confirmed cholecalciferol (vitamin D3) 50 50 mcg PO QAM 08/03/20 10/07/20 mcg (2,000 unit) capsule ferrous fumarate 325 mg (106 mg 325 mg PO BID 08/03/20 10/07/20 iron) tablet lidocaine 5 % topical patch 1 patch TOPICAL DAILY 08/03/20 10/07/20 magnesium hydroxide 400 mg/5 mL 30 ml PO DIRECTED PRN 08/03/20 10/07/20 oral suspension oxycodone 5 mg tablet 5 mg PO Q6H PRN 08/03/20 10/07/20 sodium bicarbonate 650 mg tablet 650 mg PO WM 08/03/20 10/07/20 tizanidine 2 mg capsule 2 mg PO Q8H PRN 08/03/20 10/07/20 ziprasidone HCl 20 mg capsule 20 mg PO BID 08/03/20 10/07/20 insulin aspart U-100 [Novolog 7 unit SUBCUT BID 08/18/20 10/07/20 U-100 Insulin aspart] acetaminophen 650 mg PO Q6H PRN MDD 3 GMS 10/07/20 10/07/20 APAP/24 HOURS aspirin [Aspirin Low Dose] 81 mg PO QAM 10/07/20 10/07/20 bisacodyl [Dulcolax (bisacodyl)] 10 mg [place] DIRECTED PRN 10/07/20 10/07/20 bumetanide [Bumex] 2 mg PO QAM 10/07/20 10/07/20 chlorpromazine 150 mg PO HS 10/07/20 10/07/20 [id number] 1 inh INHALATION DAILY 10/07/20 10/07/20 [Trelegy Ellipta] insulin glargine [Lantus Solostar 20 unit SUBCUT QAM 10/07/20 10/07/20 U-100 Insulin] ipratropium-albuterol [Combivent 1 puff INHALATION Q6H PRN 10/07/20 10/07/20 Respimat] lorazepam 1 mg PO BID PRN 10/07/20 10/07/20 metoprolol succinate 50 mg PO BID 10/07/20 10/07/20 nicotine 1 patch TRANSDERMAL DAILY 10/07/20 10/07/20 nutritional supplements See Rx Instructions .ROUTE .COMPLEX 10/07/20 10/07/20 [NovaSource Renal] sodium phosphates [Fleet Enema] 118 ml [place] DIRECTED PRN 10/07/20 10/07/20 trazodone 25 mg PO HS 10/07/20 10/07/20 warfarin 5 mg PO 5XWK 10/07/20 10/07/20 warfarin 7.5 mg PO 2XWK 10/07/20 10/07/20 Results & Data (ED) Vital Signs Vital Signs - 24 hr 10/07/20 13:54 10/07/20 14:51 10/07/20 16:12 Temperature 36.6 C Temperature Source Oral Pulse Rate 84 Pulse Rate [Finger] 85 Respiratory Rate 30 H 24 Respiratory Effort / Characteristics Non-Labored Respiratory Depth Normal Blood Pressure 153/99 H Blood Pressure [Right Arm] 151/97 H Blood Pressure Mean 117 Blood Pressure Mean [Right Arm] 115 Pulse Oximetry 98 98 96 Oxygen Delivery Method Room Air Nasal Cannula Nasal Cannula Oxygen Flow Rate 2 2 Sepsis Recent Fever Within 48 Hours No Sepsis New/Unexplained Change in Mental Status N/A Sepsis Action Taken by Nursing No Action Required 10/07/20 17:16 10/07/20 17:40 10/07/20 18:22 Temperature Temperature Source Pulse Rate Pulse Rate [Finger] 84 85 83 Respiratory Rate 16 18 16 Respiratory Effort / Characteristics Non-Labored Respiratory Depth Normal Blood Pressure Blood Pressure [Right Arm] 147/94 H 151/91 H 157/98 H Blood Pressure Mean Blood Pressure Mean [Right Arm] 111 111 117 Pulse Oximetry 96 96 97 Oxygen Delivery Method Nasal Cannula Nasal Cannula Nasal Cannula Oxygen Flow Rate 2 2 2 Sepsis Recent Fever Within 48 Hours Sepsis New/Unexplained Change in Mental Status Sepsis Action Taken by Nursing Laboratory Data Result diagrams: 10/07/20 14:48 10/07/20 14:48 Lab Results 10/07/20 10/07/20 10/07/20 Range/Units 14:48 14:48 14:48 WBC 8.05 (4.8-10.8) K/uL RBC 4.10 L (4.2-5.4) M/uL Hgb 11.4 L (12.0-16.0) g/dL Hct 36.4 L (37-47) % MCV 88.8 (80-100) fL MCH 27.8 (25-34) pg MCHC 31.3 L (32-36) g/dL RDW Std Deviation 67.9 H (36.4-46.3) fL RDW Coeff of Esa 20.6 H (11.5-14.5) % Plt Count 274 (130-400) K/uL MPV 9.4 (7.4-10.4) fL Immature Gran % (Auto) 0.2 % Neut % (Auto) 81.5 % Lymph % (Auto) 8.0 % [place] % (Auto) 7.5 % Eos % (Auto) 2.4 % Baso % (Auto) 0.4 % Neut # (Auto) 6.57 H (1.4-6.5) K/uL Lymph # (Auto) 0.64 L (1.2-3.4) K/uL [place] # (Auto) 0.60 H (0.11-0.59) K/uL Eos # (Auto) 0.19 (0-0.5) K/uL Baso # (Auto) 0.03 (0-0.2) K/uL Immature Gran # (Auto) 0.02 (0.00-0.02) K/uL Anisocytosis Present Ovalocytes 1+ PT 45.9 H (9.0-12.0) Seconds INR 5.2 H (0.9-1.1) APTT 43.3 H (21.0-31.0) Seconds PTT Ratio 1.6 Sodium 135 L (136-145) mmol/L Potassium 4.4 (3.5-5.1) mmol/L Chloride 100 (98-107) mmol/L Carbon Dioxide 30 (21-32) mmol/L Anion Gap 5.0 (3-11) BUN 42 H (7-18) mg/dl Creatinine 1.66 H (0.6-1.2) mg/dl Est Cr Clr Drug Dosing 43.6 ml/min Est GFR ( Amer) 39.0 Est GFR (Non-Af Amer) 33.6 BUN/Creatinine Ratio 25.4 H (10-20) Glucose 266 H (70-99) mg/dl Lactate (0.4-2.0) mmol/L Calcium 8.2 L (8.5-10.1) mg/dl Magnesium 2.1 (1.8-2.4) mg/dl Total Bilirubin 0.3 (0.2-1) mg/dl AST 20 (15-37) U/L ALT 31 (12-78) U/L Alkaline Phosphatase 150 H (45-117) U/L Ammonia (11-32) umol/L Troponin I < 0.015 (0-0.045) ng/ml NT-Pro-B Natriuret Pep 02001 H (0-900) pg/ml Total Protein 7.2 (6.4-8.2) gm/dl Albumin 2.0 L (3.4-5.0) gm/dl Globulin 5.2 H (2.5-4.0) gm/dl Albumin/Globulin Ratio 0.4 L (0.9-2) Procalcitonin (0-0.5) ng/ml COVID-19 Eval Order SARS-CoV-2 (PCR) (Negative) Influenza Type A (PCR) (Neg) Influenza Type B (PCR) (Neg) RSV (RT-PCR) (Neg) Blood Type Antibody Screen 10/07/20 10/07/20 10/07/20 Range/Units 14:48 14:48 15:22 WBC (4.8-10.8) K/uL RBC (4.2-5.4) M/uL Hgb (12.0-16.0) g/dL Hct (37-47) % MCV (80-100) fL MCH (25-34) pg MCHC (32-36) g/dL RDW Std Deviation (36.4-46.3) fL RDW Coeff of Esa (11.5-14.5) % Plt Count (130-400) K/uL MPV (7.4-10.4) fL Immature Gran % (Auto) % Neut % (Auto) % Lymph % (Auto) % [place] % (Auto) % Eos % (Auto) % Baso % (Auto) % Neut # (Auto) (1.4-6.5) K/uL Lymph # (Auto) (1.2-3.4) K/uL [place] # (Auto) (0.11-0.59) K/uL Eos # (Auto) (0-0.5) K/uL Baso # (Auto) (0-0.2) K/uL Immature Gran # (Auto) (0.00-0.02) K/uL Anisocytosis Ovalocytes PT (9.0-12.0) Seconds INR (0.9-1.1) APTT (21.0-31.0) Seconds PTT Ratio Sodium (136-145) mmol/L Potassium (3.5-5.1) mmol/L Chloride (98-107) mmol/L Carbon Dioxide (21-32) mmol/L Anion Gap (3-11) BUN (7-18) mg/dl Creatinine (0.6-1.2) mg/dl Est Cr Clr Drug Dosing ml/min Est GFR ( Amer) Est GFR (Non-Af Amer) BUN/Creatinine Ratio (10-20) Glucose (70-99) mg/dl Lactate 1.2 (0.4-2.0) mmol/L Calcium (8.5-10.1) mg/dl Magnesium (1.8-2.4) mg/dl Total Bilirubin (0.2-1) mg/dl AST (15-37) U/L ALT (12-78) U/L Alkaline Phosphatase (45-117) U/L Ammonia (11-32) umol/L Troponin I (0-0.045) ng/ml NT-Pro-B Natriuret Pep (0-900) pg/ml Total Protein (6.4-8.2) gm/dl Albumin (3.4-5.0) gm/dl Globulin (2.5-4.0) gm/dl Albumin/Globulin Ratio (0.9-2) Procalcitonin 0.05 (0-0.5) ng/ml COVID-19 Eval Order SARS-CoV-2 (PCR) (Negative) Influenza Type A (PCR) (Neg) Influenza Type B (PCR) (Neg) RSV (RT-PCR) (Neg) Blood Type B Positive Antibody Screen NEGATIVE 10/07/20 10/07/20 10/07/20 Range/Units 15:22 17:34 17:34 WBC (4.8-10.8) K/uL RBC (4.2-5.4) M/uL Hgb (12.0-16.0) g/dL Hct (37-47) % MCV (80-100) fL MCH (25-34) pg MCHC (32-36) g/dL RDW Std Deviation (36.4-46.3) fL RDW Coeff of Esa (11.5-14.5) % Plt Count (130-400) K/uL MPV (7.4-10.4) fL Immature Gran % (Auto) % Neut % (Auto) % Lymph % (Auto) % [place] % (Auto) % Eos % (Auto) % Baso % (Auto) % Neut # (Auto) (1.4-6.5) K/uL Lymph # (Auto) (1.2-3.4) K/uL [place] # (Auto) (0.11-0.59) K/uL Eos # (Auto) (0-0.5) K/uL Baso # (Auto) (0-0.2) K/uL Immature Gran # (Auto) (0.00-0.02) K/uL Anisocytosis Ovalocytes PT (9.0-12.0) Seconds INR (0.9-1.1) APTT (21.0-31.0) Seconds PTT Ratio Sodium (136-145) mmol/L Potassium (3.5-5.1) mmol/L Chloride (98-107) mmol/L Carbon Dioxide (21-32) mmol/L Anion Gap (3-11) BUN (7-18) mg/dl Creatinine (0.6-1.2) mg/dl Est Cr Clr Drug Dosing ml/min Est GFR ( Amer) Est GFR (Non-Af Amer) BUN/Creatinine Ratio (10-20) Glucose (70-99) mg/dl Lactate (0.4-2.0) mmol/L Calcium (8.5-10.1) mg/dl Magnesium (1.8-2.4) mg/dl Total Bilirubin (0.2-1) mg/dl AST (15-37) U/L ALT (12-78) U/L Alkaline Phosphatase (45-117) U/L Ammonia 41.7 H (11-32) umol/L Troponin I (0-0.045) ng/ml NT-Pro-B Natriuret Pep (0-900) pg/ml Total Protein (6.4-8.2) gm/dl Albumin (3.4-5.0) gm/dl Globulin (2.5-4.0) gm/dl Albumin/Globulin Ratio (0.9-2) Procalcitonin (0-0.5) ng/ml COVID-19 Eval Order CovFluRsv at [facility] SARS-CoV-2 (PCR) POSITIVE A* (Negative) Influenza Type A (PCR) Negative (Neg) Influenza Type B (PCR) Negative (Neg) RSV (RT-PCR) Negative (Neg) Blood Type Antibody Screen Administered Medications Discontinued Medications Furosemide (Furosemide 40 Mg/4 Ml Vial) 40 mg IV NOW STA Stop: 10/07/20 15:22 Last Admin: 10/07/20 16:09 Dose: 40 mg Documented by: [id number] Sodium Chloride (Nss 1000ml) 1,000 mls @ 150 mls/hr IV .[id number] SANDIP Stop: 11/06/20 14:14 Last Admin: 10/07/20 14:58 Dose: Not Given Documented by: [id number] Phytonadione 2.5 mg/ Sodium (Chloride) 50.25 mls @ 100.5 mls/hr IV ONE STA Stop: 10/07/20 18:22 Last Infusion: 10/07/20 19:02 Dose: 0 mls/hr Documented by: [id number] Admin: 10/07/20 18:23 Dose: 100.5 mls/hr Documented by: [id number] Discharge Plan Visit Data Chief Complaint: Lethargic ED Provider: Bhavesh Lackey Discharge Problem: SOB (shortness of breath), Hypoxia Discharge Instructions Interventions: ED Discharge Assessment Last Done: 10/07/20 20:22
[2020-10-07 15:08] LABS: Basophils # (auto) 0.03 K/uL (0-0.2); Basophils % (auto) 0.4 %; Eosinophils # (auto) 0.19 K/uL (0-0.5); Eosinophils % (auto) 2.4 %; Hematocrit (blood only) 36.4 % (37-47); Hemoglobin 11.4 g/dL (12.0-16.0); Immature Granulocytes # (auto) 0.02 K/uL (0.00-0.02); Immature Granulocytes % (auto) 0.2 %; Lymphocytes # (auto) 0.64 K/uL (1.2-3.4); Mean Corpuscular Hemoglobin 27.8 pg (25-34); Mean Corpuscular Hgb Conc 31.3 g/dL (32-36); Mean Corpuscular Volume 88.8 fL (80-100); Mean Platelet Volume 9.4 fL (7.4-10.4); Monocytes % (auto) 7.5 %; Neutrophils # (auto) 6.57 K/uL (1.4-6.5); Neutrophils % (auto) 81.5 %; Platelet Count 274 K/uL (130-400); RDW Coefficient of Variation 20.6 % (11.5-14.5); RDW Standard Deviation 67.9 fL (36.4-46.3); White Blood Count 8.05 K/uL (4.8-10.8)
[2020-10-07] MEDS ORDERED: FUROSEMIDE 40 MG/4 ML VIAL IV STA (15:21)
[2020-10-07 15:28] LABS: Alanine Aminotransferase 31 U/L (12-78); Aspartate Aminotransferase 20 U/L (15-37); BUN Creatinine Ratio 25.4 (10-20); Blood Urea Nitrogen 42 mg/dl (7-18); Calcium 8.2 mg/dl (8.5-10.1); Carbon Dioxide 30 mmol/L (21-32); Chloride 100 mmol/L (98-107); Creatinine Clr Calc Pharmacy 43.6 ml/min; Est GFR (Non-African American) 33.6; Glucose 266 mg/dl (70-99); Magnesium 2.1 mg/dl (1.8-2.4); Potassium 4.4 mmol/L (3.5-5.1); Sodium 135 mmol/L (136-145)
[2020-10-07 15:30] LABS: Anisocytosis Present; Ovalocytes 1+
[2020-10-07 15:31] LABS: INR 5.2 (0.9-1.1); Partial Thromboplastin Ratio 1.6; Partial Thromboplastin Time 43.3 Seconds (21.0-31.0); Prothrombin Time 45.9 Seconds (9.0-12.0)
[2020-10-07 15:33] LABS: Albumin Globulin Ratio 0.4 (0.9-2); Alkaline Phosphatase 150 U/L (45-117); Bilirubin,Total 0.3 mg/dl (0.2-1); Globulin 5.2 gm/dl (2.5-4.0); NT Pro B Type Natriuretic Pept 11691 pg/ml (0-900); Total Protein 7.2 gm/dl (6.4-8.2); Troponin I < 0.015 ng/ml (0-0.045)
--- NOTE | 2020-10-07 15:50 | CT Scan Report ---
CT SCAN OF THE ABDOMEN AND PELVIS WITHOUT CONTRAST CLINICAL HISTORY: diffuse abd pain COMPARISON STUDY: 08/23/2020 TECHNIQUE: CT scan of the abdomen and pelvis was performed from the lung bases to the proximal femurs . Images are reviewed in the axial, sagittal, and coronal planes. IV contrast was not administered fo r this examination. A dose lowering technique was utilized adhering to the principles of ALARA. CT DOSE: 1267.70 mGycm FINDINGS: Lower chest: There are moderate bilateral pleural effusions. There are persistent multifocal bilatera l pulmonary airspace opacities. Liver: The unenhanced liver is normal in size, contour, and attenuation. There is no intrahepatic franny iary ductal dilatation. Gallbladder: The previously identified gallstone is not visualized with certainty. There is no gallbl adder distention. Spleen: Normal in size and attenuation. Pancreas: Unremarkable. Adrenal glands: There is stable mild adrenal gland thickening. Kidneys: There are punctate bilateral renal calcifications, vascular versus nonobstructing calculi. T here is no significant hydronephrosis. No ureteral or bladder calculi are visualized. There is a 1 cm left renal hypodensity likely representing a cyst Bowel: There are no transition zones indicate bowel obstruction. There is no evidence of acute divert iculitis. There are no findings to indicate acute appendicitis. There is mild lower rectal wall thick ening. Peritoneum: There is no intraperitoneal free air or abdominal ascites. There is persistent mild infil tration of the perirectal fat. Vasculature: The abdominal aorta is normal in course and caliber. Adenopathy: None. Pelvic viscera: There are persistent uterine calcifications. There are no abnormal adnexal masses. Th ere is an indwelling Melchor catheter. Skeletal structures: There is diffuse body wall edema. The examination is motion compromised. IMPRESSION: 1. Moderate bilateral pleural effusions and bilateral pulmonary airspace opacities consistent with a multifocal pneumonia 2. No evidence of bowel obstruction. No evidence of free air 3. Diffuse body wall edema/anasarca 4. Interval development of mild rectal wall thickening. Correlate clinically with regards to a mild p roctitis. 5. Interval resolution of the previously identified ascites ACT 112: Negative or not required by law. Electronically signed by: Lowell Estrada M.D. 10/07/2020 3:49 PM
[2020-10-07] MEDS ORDERED: NITROGLYCERIN 2% OINTMENT 30GM TUBE EXT STA (16:34)
[2020-10-07] MEDS ORDERED: PHYTONADIONE 2.5 MG in SODIUM CHLORIDE 0.9% 50 ML IV STA (17:53)
[2020-10-07 18:29] LABS: Influenza A virus by PCR Negative (Neg); Influenza B virus by PCR Negative (Neg); RSV by PCR Negative (Neg)
[2020-10-07 18:55] LABS: SARS CoV2 RNA(COVID-19) InHosp POSITIVE (Negative)
[2020-10-07] MEDS ORDERED: LORazepam 0.5 MG TAB PO STA (19:48)
--- NOTE | 2020-10-07 20:07 | History & Physical Report ---
Date of Service October 07, 2020 Assessment & Plan (1) Heart failure: Zahida Garay is a 60 yo female with PMHx of atrial fibrillation, anemia, CKD, HTN, CVA, COVID-19 infection August 2020, IDDM, diastolic CHF, bipolar disorder, and right BKA admitted for CHF exacerbation. SOB due to CHF exacerbation - Suspect CHF exacerbation due to hypervolemia, SOB, and hypoxia with O2 in 80s per [place] records; hx of severe pulmonary [place]N [place] [id number] - Less likely infectious etiology as patient is afebrile, negative WBC, procal negative, recent abx tx for COVID penumonia, and elevated BNP; will defer abx at this time - Less likely PE given supratherapeutic INR, no pleuritic CP, minimal O2 requirement (sat 99% on 2L), and normal HR; defer chest CTA (also want to hold dye load given hx of CKD and current diuresis). - Bumex 2mg po daily at home; will adjust to Bumex 2mg IV BID during admission - Strict Is and Os - Monitor daily weights - Record review, TTE 08/23/20: Normal LV size and systolic function with EF 65- 70%. No regional wall motion abnormalities. Mild concentric LVH. Septal flattening during diastole suggests RV volume overload. Mildly dilated right ventricle with probable mildly reduced systolic function. Thickened mitral valve leaflets with moderate mitral stenosis. Restricted/tethered posterior mitral leaflet with anteriorly directed, moderate to severe mitral regurgitation. Severe tricuspid regurgitation. Severe pulmonary HTN; estimated RVSP 73 mmHg. - Diet: heart healthy, low Na, DM, and fluid restrict to < 1200mL daily ? Epigastric Pain - Per report w/ hx of abdominal pain "for weeks" - Exam w/ ? epigastric TTP but inconsistent findings on palpation - Supratherapeutic INR, elevated ammonia, and elevated alk phos; AST, ALT, and bili within normal limits - Due to recent heme + stools in August 2020 and acute on chronic blood loss anemia at that time, will start patient on pantoprazole 40mg po daily - Serial abdominal exams - Trend LFTs Supratherapeutic INR - INR at 5.2 today - Per alf records, recent adjustment of coumadin as INR had been subtherapeutic - Ordered 2.5mg Vitamin K IV which patient received on admission - Adjust coumadin regimen to 5mg po daily at this time - Trend INR Severe Protein-Calorie Malnutrition - Albumin of 2.0 - Consult dietary Abnormal UA - UA with 4+ protein, 2+ glucose, 3+ blood, neg nitrite, neg leuk esterase, 10- 30 WBC, > 30 RBC, 10-20 epithelial cells - Melchor catheter in place - Possible contaminated sample - Patient doesn't attest to any urinary symptoms - Hx IDDM; continue management for IDDM as noted below History of COVID-19 - Diagnosed with COVID-19 08/15/20 - Repeat COVID testing today remains positive - Isolation precautions in place - Negative influenza A/B and RSV testing today History of Atrial Fibrillation - Currently in NSR - Monitor on tele - Continue rate control with home metoprolol 50mg po BID IDDM - Glucose 266 on admission - Continue Lantus 20 untis SQ qAM - ISS w/ goal BS range 140-180, correction factor 9, and INS:CHO ratio 1:3 - Hypoglycemic protocol Hx of Bipolar Disorder and Anxiety - Continue home ziprasidone 20mg po BID, chlorpromazine 150mg po qhs, and trazodone 25mg po qhs - Home Ativan 1mg po BID; adjust Ativan to 0.5mg q6h prn on admission CKD Stage III - Cr currently at baseline at 1.66 - Renal adjustment for medications/avoid nephrotoxic agents - Monitor Cr Hx of Anemia - No current signs of bleeding - Hgb at baseline; Hgb 11.4 on admission - Monitor Hgb/CBC qAM - Transfuse for Hgb < 7 Hx of Nicotine Dependence - Continue Nicoderm patch daily FENGI: Heart healthy, carb count, low sodium (<2g), and fluid restriction < 1200mL/day DVT Ppx: Anticoagulated on coumadin; supratherapeutic on admission Dispo: PCU/tele Code status: Full code (2) IDDM (insulin dependent diabetes mellitus): (3) Mitral valve regurgitation: (4) Anemia: (5) Atrial fibrillation and flutter: (6) Bipolar disorder: (7) CKD (chronic kidney disease), stage III: (8) History of COVID-19: (9) Severe protein-calorie malnutrition: (10) Supratherapeutic INR: (11) Nicotine dependence: (12) Anxiety: (13) Epigastric pain: History of Present Illness Primary Care Provider: [facility] Zahida Garay is a 60 yo female with PMHx of atrial fibrillation, anemia, CKD, HTN, CVA, COVID-19 infection August 2020, IDDM, diastolic CHF, bipolar disorder, and right BKA who presented to the ED with SOB and hypoxia. History is obtained primarily through chart review and alf records ([facility]). Patient recently admitted at [facility] from 08/15/20 to 08/30/20. She was discharged to [facility] and per [place] records, she was recently treated for pneumonia with Zithromax and a 10 day course of Augmentin (last dose 10/04). Today, patient was found to have increased lethargy, SOB, and hypoxia with O2 sat in the 80s. Patient does admit to SOB but states that this has been persistent for the past several weeks. She "doesn't know why" she was sent to the hospital. Patient reports persistent dry cough but denies fever, chills, abd pain, nausea, vomiting, leg pain, or leg swelling. Additionally, it is noted in records that patient has had recent increased LE edema. She is on Bumex 2mg daily but received an additional dose of 2mg Bumex on 10/05 (2 days ago) due to increased edema and inability to put on RLE prosthesis secondary to the edema. Records report that patient has not been compliant with fluid restrictions of < 2,000 mL intake daily. Her daily weights have not had a significant change (weight today 175 lbs, yesterday 178 lbs). Patient's a nticoagulation with coumadin has been adjusted; INR on 10/04 was 1.3 --> patient received 10mg coumadin x 2 days --> recheck INR 10/06 2.1 --> coumadin regimen adjusted to 7.5mg po daily / and 5mg po daily ////Sun. Allergies Allergy/AdvReac Type Severity Reaction Status Date / Time shellfish derived Allergy Unknown Unknown Verified 10/07/20 15:51 Home Medications Medication Instructions Recorded Confirmed Type cholecalciferol (vitamin D3) 50 50 mcg PO QAM 08/03/20 10/07/20 History mcg (2,000 unit) capsule ferrous fumarate 325 mg (106 mg 325 mg PO BID 08/03/20 10/07/20 History iron) tablet lidocaine 5 % topical patch 1 patch TOPICAL DAILY 08/03/20 10/07/20 History magnesium hydroxide 400 mg/5 mL 30 ml PO DIRECTED PRN 08/03/20 10/07/20 History oral suspension oxycodone 5 mg tablet 5 mg PO Q6H PRN 08/03/20 10/07/20 History sodium bicarbonate 650 mg tablet 650 mg PO WM 08/03/20 10/07/20 History tizanidine 2 mg capsule 2 mg PO Q8H PRN 08/03/20 10/07/20 History ziprasidone HCl 20 mg capsule 20 mg PO BID 08/03/20 10/07/20 History insulin aspart U-100 [Novolog 7 unit SUBCUT BID 08/18/20 10/07/20 History U-100 Insulin aspart] acetaminophen 650 mg PO Q6H PRN MDD 3 GMS 10/07/20 10/07/20 History APAP/24 HOURS aspirin [Aspirin Low Dose] 81 mg PO QAM 10/07/20 10/07/20 History bisacodyl [Dulcolax (bisacodyl)] 10 mg NV DIRECTED PRN 10/07/20 10/07/20 History bumetanide [Bumex] 2 mg PO QAM 10/07/20 10/07/20 History chlorpromazine 150 mg PO HS 10/07/20 10/07/20 History pjrbtxmwebh-qmqqufmfe-drxrvrvm 1 inh INHALATION DAILY 10/07/20 10/07/20 History [Trelegy Ellipta] insulin glargine [Lantus Solostar 20 unit SUBCUT QAM 10/07/20 10/07/20 History U-100 Insulin] ipratropium-albuterol [Combivent 1 puff INHALATION Q6H PRN 10/07/20 10/07/20 History Respimat] lorazepam 1 mg PO BID PRN 10/07/20 10/07/20 History metoprolol succinate 50 mg PO BID 10/07/20 10/07/20 History nicotine 1 patch TRANSDERMAL DAILY 10/07/20 10/07/20 History nutritional supplements See Rx Instructions .ROUTE .COMPLEX 10/07/20 10/07/20 History [Nova[employer] Renal] sodium phosphates [Fleet Enema] 118 ml NV DIRECTED PRN 10/07/20 10/07/20 History trazodone 25 mg PO HS 10/07/20 10/07/20 History warfarin 5 mg PO 5XWK 10/07/20 10/07/20 History warfarin 7.5 mg PO 2XWK 10/07/20 10/07/20 History Past Med/Surg History Medical History (Updated 10/08/20 @ 13:59 by Cristiano Carbajal MD) Acute alteration in mental status Amputation of left great toe Anxiety Atrial fibrillation and flutter Bipolar disorder delivery delivered CKD (chronic kidney disease), stage III CVA (cerebral vascular accident) Heart failure History of COVID-19 Hypoglycemia Hypoxemia IDDM (insulin dependent diabetes mellitus) Insomnia Mitral valve regurgitation Nicotine dependence Pneumonia due to 2019 novel coronavirus Pulmonary hypertension Severe protein-calorie malnutrition Stroke Surgical History Hx of right BKA Social History (Updated 08/16/20 @ 15:37 by Lambert Duarte MD) Smoking Status: Former smoker Tobacco Type: Cigarettes packs per day: 2; Years Smoked: 40; Second Hand Exposure: No; Do You Dip or Chew Tobacco: No; Tobacco Cessation Education Requested by Patient: No Hx Alcohol Use: No Hx Substance Use: Yes Non-Prescribed Medications: Crack / Cocaine Last Used Substance: Unknown Last Used Substance Other:: 17 years ago Preferred Language: Ghanaian Communication Ability: Effective Family Preservation Caseworker Required: No Beliefs That Will Affect Care: None marital status: Unknown Current Living Situation: Alone current occupational status: unemployed and disabled 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 No acute distress. EYES: PERRLA. EOMI. Anicteric sclerae. HENT: Moist mucous membranes. No pharyngeal erythema or exudates. RESPIRATORY: Coarse breath sounds bilaterally. Crackles and rhonci throughout bilateral lung shepherd. CARDIOVASCULAR: Regular rate and rhythm. Irregular click. ABDOMEN: Soft. ? tenderness in epigastric region. Non-distended. Normal bowel sounds. EXTREMITIES: No tenderness to palpation. Right BKA. 3+ pitting edema from right stump to groin. 3+ pitting edema left ankle to groin. NEUROLOGIC: A/O x3. Normal speech. PSYCHIATRIC: Intermittently cooperative vs. agitated. Results & Data Results & Data ([facility]) Vital Signs (Past 12 Hours) Vital Signs Temp Pulse Pulse Resp BP BP Pulse Ox 10/07/20 18:22 83 16 157/98 H 97 10/07/20 17:40 85 18 151/91 H 96 10/07/20 17:16 84 16 147/94 H 96 10/07/20 16:12 85 24 151/97 H 96 10/07/20 14:51 98 10/07/20 13:54 36.6 C 84 30 H 153/99 H 98 Laboratory Results 10/07/20 10/07/20 10/07/20 Range/Units 22:11 17:34 17:34 WBC (4.8-10.8) K/uL RBC (4.2-5.4) M/uL Hgb (12.0-16.0) g/dL Hct (37-47) % MCV (80-100) fL MCH (25-34) pg MCHC (32-36) g/dL RDW Std Deviation (36.4-46.3) fL RDW Coeff of Esa (11.5-14.5) % Plt Count (130-400) K/uL MPV (7.4-10.4) fL Immature Gran % (Auto) % Neut % (Auto) % Lymph % (Auto) % Rich % (Auto) % Eos % (Auto) % Baso % (Auto) % Neut # (Auto) (1.4-6.5) K/uL Lymph # (Auto) (1.2-3.4) K/uL Rich # (Auto) (0.11-0.59) K/uL Eos # (Auto) (0-0.5) K/uL Baso # (Auto) (0-0.2) K/uL Immature Gran # (Auto) (0.00-0.02) K/uL Anisocytosis Ovalocytes PT (9.0-12.0) Seconds INR (0.9-1.1) APTT (21.0-31.0) Seconds PTT Ratio Sodium (136-145) mmol/L Potassium (3.5-5.1) mmol/L Chloride (98-107) mmol/L Carbon Dioxide (21-32) mmol/L Anion Gap (3-11) BUN (7-18) mg/dl Creatinine (0.6-1.2) mg/dl Est Cr Clr Drug Dosing ml/min Est GFR ( Amer) Est GFR (Non-Af Amer) BUN/Creatinine Ratio (10-20) Glucose (70-99) mg/dl POC Glucose 215 H (70-99) mg/dl Lactate (0.4-2.0) mmol/L Calcium (8.5-10.1) mg/dl Magnesium (1.8-2.4) mg/dl Total Bilirubin (0.2-1) mg/dl AST (15-37) U/L ALT (12-78) U/L Alkaline Phosphatase (45-117) U/L Ammonia (11-32) umol/L Troponin I (0-0.045) ng/ml NT-Pro-B Natriuret Pep (0-900) pg/ml Total Protein (6.4-8.2) gm/dl Albumin (3.4-5.0) gm/dl Globulin (2.5-4.0) gm/dl Albumin/Globulin Ratio (0.9-2) Procalcitonin (0-0.5) ng/ml Urine Color Urine Appearance (Clear) Urine pH (4.5-7.5) Ur Specific [place] (1.000-1.030) Urine Protein (Negative) Urine Glucose (UA) (Negative) Urine Ketones (Negative) Urine Blood (Negative) Urine Nitrite (Negative) Urine Bilirubin (Negative) Urine Urobilinogen (Negative) Ur Leukocyte Esterase (Negative) Urine WBC (Auto) (0-5) /hpf Urine RBC (Auto) (0-4) /hpf U Hyaline Cast (Auto) (0-5) /lpf U Epithel Cells (Auto) (0-5) /lpf Urine Bacteria (Auto) (Negative) COVID-19 Eval Order CovFluRsv at [facility] SARS-CoV-2 (PCR) POSITIVE A* (Negative) Influenza Type A (PCR) Negative (Neg) Influenza Type B (PCR) Negative (Neg) RSV (RT-PCR) Negative (Neg) Blood Type Antibody Screen 10/07/20 10/07/20 10/07/20 Range/Units 15:22 15:22 14:49 WBC (4.8-10.8) K/uL RBC (4.2-5.4) M/uL Hgb (12.0-16.0) g/dL Hct (37-47) % MCV (80-100) fL MCH (25-34) pg MCHC (32-36) g/dL RDW Std Deviation (36.4-46.3) fL RDW Coeff of Esa (11.5-14.5) % Plt Count (130-400) K/uL MPV (7.4-10.4) fL Immature Gran % (Auto) % Neut % (Auto) % Lymph % (Auto) % Rich % (Auto) % Eos % (Auto) % Baso % (Auto) % Neut # (Auto) (1.4-6.5) K/uL Lymph # (Auto) (1.2-3.4) K/uL Rich # (Auto) (0.11-0.59) K/uL Eos # (Auto) (0-0.5) K/uL Baso # (Auto) (0-0.2) K/uL Immature Gran # (Auto) (0.00-0.02) K/uL Anisocytosis Ovalocytes PT (9.0-12.0) Seconds INR (0.9-1.1) APTT (21.0-31.0) Seconds PTT Ratio Sodium (136-145) mmol/L Potassium (3.5-5.1) mmol/L Chloride (98-107) mmol/L Carbon Dioxide (21-32) mmol/L Anion Gap (3-11) BUN (7-18) mg/dl Creatinine (0.6-1.2) mg/dl Est Cr Clr Drug Dosing ml/min Est GFR ( Amer) Est GFR (Non-Af Amer) BUN/Creatinine Ratio (10-20) Glucose (70-99) mg/dl POC Glucose (70-99) mg/dl Lactate (0.4-2.0) mmol/L Calcium (8.5-10.1) mg/dl Magnesium (1.8-2.4) mg/dl Total Bilirubin (0.2-1) mg/dl AST (15-37) U/L ALT (12-78) U/L Alkaline Phosphatase (45-117) U/L Ammonia 41.7 H (11-32) umol/L Troponin I (0-0.045) ng/ml NT-Pro-B Natriuret Pep (0-900) pg/ml Total Protein (6.4-8.2) gm/dl Albumin (3.4-5.0) gm/dl Globulin (2.5-4.0) gm/dl Albumin/Globulin Ratio (0.9-2) Procalcitonin (0-0.5) ng/ml Urine Color Yellow Urine Appearance Clear (Clear) Urine pH 7.0 (4.5-7.5) Ur Specific [place] 1.021 (1.000-1.030) Urine Protein 4+ H (Negative) Urine Glucose (UA) 2+ H (Negative) Urine Ketones Negative (Negative) Urine Blood 3+ H (Negative) Urine Nitrite Negative (Negative) Urine Bilirubin Negative (Negative) Urine Urobilinogen Negative (Negative) Ur Leukocyte Esterase Negative (Negative) Urine WBC (Auto) 10-30 H (0-5) /hpf Urine RBC (Auto) >30 H (0-4) /hpf U Hyaline Cast (Auto) 1-5 (0-5) /lpf U Epithel Cells (Auto) 10-20 H (0-5) /lpf Urine Bacteria (Auto) Negative (Negative) COVID-19 Eval Order SARS-CoV-2 (PCR) (Negative) Influenza Type A (PCR) (Neg) Influenza Type B (PCR) (Neg) RSV (RT-PCR) (Neg) Blood Type B Positive Antibody Screen NEGATIVE 10/07/20 10/07/20 10/07/20 Range/Units 14:48 14:48 14:48 WBC (4.8-10.8) K/uL RBC (4.2-5.4) M/uL Hgb (12.0-16.0) g/dL Hct (37-47) % MCV (80-100) fL MCH (25-34) pg MCHC (32-36) g/dL RDW Std Deviation (36.4-46.3) fL RDW Coeff of Esa (11.5-14.5) % Plt Count (130-400) K/uL MPV (7.4-10.4) fL Immature Gran % (Auto) % Neut % (Auto) % Lymph % (Auto) % Rich % (Auto) % Eos % (Auto) % Baso % (Auto) % Neut # (Auto) (1.4-6.5) K/uL Lymph # (Auto) (1.2-3.4) K/uL Rich # (Auto) (0.11-0.59) K/uL Eos # (Auto) (0-0.5) K/uL Baso # (Auto) (0-0.2) K/uL Immature Gran # (Auto) (0.00-0.02) K/uL Anisocytosis Ovalocytes PT (9.0-12.0) Seconds INR (0.9-1.1) APTT (21.0-31.0) Seconds PTT Ratio Sodium 135 L (136-145) mmol/L Potassium 4.4 (3.5-5.1) mmol/L Chloride 100 (98-107) mmol/L Carbon Dioxide 30 (21-32) mmol/L Anion Gap 5.0 (3-11) BUN 42 H (7-18) mg/dl Creatinine 1.66 H (0.6-1.2) mg/dl Est Cr Clr Drug Dosing 43.6 ml/min Est GFR ( Amer) 39.0 Est GFR (Non-Af Amer) 33.6 BUN/Creatinine Ratio 25.4 H (10-20) Glucose 266 H (70-99) mg/dl POC Glucose (70-99) mg/dl Lactate 1.2 (0.4-2.0) mmol/L Calcium 8.2 L (8.5-10.1) mg/dl Magnesium 2.1 (1.8-2.4) mg/dl Total Bilirubin 0.3 (0.2-1) mg/dl AST 20 (15-37) U/L ALT 31 (12-78) U/L Alkaline Phosphatase 150 H (45-117) U/L Ammonia (11-32) umol/L Troponin I < 0.015 (0-0.045) ng/ml NT-Pro-B Natriuret Pep 70206 H (0-900) pg/ml Total Protein 7.2 (6.4-8.2) gm/dl Albumin 2.0 L (3.4-5.0) gm/dl Globulin 5.2 H (2.5-4.0) gm/dl Albumin/Globulin Ratio 0.4 L (0.9-2) Procalcitonin 0.05 (0-0.5) ng/ml Urine Color Urine Appearance (Clear) Urine pH (4.5-7.5) Ur Specific [place] (1.000-1.030) Urine Protein (Negative) Urine Glucose (UA) (Negative) Urine Ketones (Negative) Urine Blood (Negative) Urine Nitrite (Negative) Urine Bilirubin (Negative) Urine Urobilinogen (Negative) Ur Leukocyte Esterase (Negative) Urine WBC (Auto) (0-5) /hpf Urine RBC (Auto) (0-4) /hpf U Hyaline Cast (Auto) (0-5) /lpf U Epithel Cells (Auto) (0-5) /lpf Urine Bacteria (Auto) (Negative) COVID-19 Eval Order SARS-CoV-2 (PCR) (Negative) Influenza Type A (PCR) (Neg) Influenza Type B (PCR) (Neg) RSV (RT-PCR) (Neg) Blood Type Antibody Screen 10/07/20 10/07/20 Range/Units 14:48 14:48 WBC 8.05 (4.8-10.8) K/uL RBC 4.10 L (4.2-5.4) M/uL Hgb 11.4 L (12.0-16.0) g/dL Hct 36.4 L (37-47) % MCV 88.8 (80-100) fL MCH 27.8 (25-34) pg MCHC 31.3 L (32-36) g/dL RDW Std Deviation 67.9 H (36.4-46.3) fL RDW Coeff of Esa 20.6 H (11.5-14.5) % Plt Count 274 (130-400) K/uL MPV 9.4 (7.4-10.4) fL Immature Gran % (Auto) 0.2 % Neut % (Auto) 81.5 % Lymph % (Auto) 8.0 % Rich % (Auto) 7.5 % Eos % (Auto) 2.4 % Baso % (Auto) 0.4 % Neut # (Auto) 6.57 H (1.4-6.5) K/uL Lymph # (Auto) 0.64 L (1.2-3.4) K/uL Rich # (Auto) 0.60 H (0.11-0.59) K/uL Eos # (Auto) 0.19 (0-0.5) K/uL Baso # (Auto) 0.03 (0-0.2) K/uL Immature Gran # (Auto) 0.02 (0.00-0.02) K/uL Anisocytosis Present Ovalocytes 1+ PT 45.9 H (9.0-12.0) Seconds INR 5.2 H (0.9-1.1) APTT 43.3 H (21.0-31.0) Seconds PTT Ratio 1.6 Sodium (136-145) mmol/L Potassium (3.5-5.1) mmol/L Chloride (98-107) mmol/L Carbon Dioxide (21-32) mmol/L Anion Gap (3-11) BUN (7-18) mg/dl Creatinine (0.6-1.2) mg/dl Est Cr Clr Drug Dosing ml/min Est GFR ( Amer) Est GFR (Non-Af Amer) BUN/Creatinine Ratio (10-20) Glucose (70-99) mg/dl POC Glucose (70-99) mg/dl Lactate (0.4-2.0) mmol/L Calcium (8.5-10.1) mg/dl Magnesium (1.8-2.4) mg/dl Total Bilirubin (0.2-1) mg/dl AST (15-37) U/L ALT (12-78) U/L Alkaline Phosphatase (45-117) U/L Ammonia (11-32) umol/L Troponin I (0-0.045) ng/ml NT-Pro-B Natriuret Pep (0-900) pg/ml Total Protein (6.4-8.2) gm/dl Albumin (3.4-5.0) gm/dl Globulin (2.5-4.0) gm/dl Albumin/Globulin Ratio (0.9-2) Procalcitonin (0-0.5) ng/ml Urine Color Urine Appearance (Clear) Urine pH (4.5-7.5) Ur Specific [place] (1.000-1.030) Urine Protein (Negative) Urine Glucose (UA) (Negative) Urine Ketones (Negative) Urine Blood (Negative) Urine Nitrite (Negative) Urine Bilirubin (Negative) Urine Urobilinogen (Negative) Ur Leukocyte Esterase (Negative) Urine WBC (Auto) (0-5) /hpf Urine RBC (Auto) (0-4) /hpf U Hyaline Cast (Auto) (0-5) /lpf U Epithel Cells (Auto) (0-5) /lpf Urine Bacteria (Auto) (Negative) COVID-19 Eval Order SARS-CoV-2 (PCR) (Negative) Influenza Type A (PCR) (Neg) Influenza Type B (PCR) (Neg) RSV (RT-PCR) (Neg) Blood Type Antibody Screen Diagnostic Findings SINGLE VIEW CHEST CLINICAL HISTORY: Sepsis. FINDINGS: 2 AP, portable, upright chest radiographs are compared to study dated 08/26/2020. The examination is degraded by portable technique and patient rotation. The heart is mildly enlarged. Multifocal airspace opacities are seen throughout both lungs. This is increasingly confluent as compared to the 08/26/2020 examination. Small pleural effusions are noted. No pneumothorax is seen. The skeletal structures are osteopenic. The bony thorax is grossly intact. IMPRESSION: 1. Multifocal airspace opacities are increasingly confluent as compared to 08/26/2020. This could represent multifocal pneumonia and/or pulmonary edema. Clinical correlation will be required. 2. Cardiomegaly and small pleural effusions. ACT 112: Negative or not required by law. Electronically signed by: Phil Alfaro M.D. 10/07/2020 2:[address] SCAN OF THE ABDOMEN AND PELVIS WITHOUT CONTRAST CLINICAL HISTORY: diffuse abd pain COMPARISON STUDY: 08/23/2020 TECHNIQUE: CT scan of the abdomen and pelvis was performed from the lung bases to the proximal femurs. Images are reviewed in the axial, sagittal, and coronal planes. IV contrast was not administered for this examination. A dose lowering technique was utilized adhering to the principles of ALARA. CT DOSE: 1267.70 mGycm FINDINGS: Lower chest: There are moderate bilateral pleural effusions. There are persistent multifocal bilateral pulmonary airspace opacities. Liver: The unenhanced liver is normal in size, contour, and attenuation. There is no intrahepatic biliary ductal dilatation. Gallbladder: The previously identified gallstone is not visualized with certainty. There is no gallbladder distention. Spleen: Normal in size and attenuation. Pancreas: Unremarkable. Adrenal glands: There is stable mild adrenal gland thickening. Kidneys: There are punctate bilateral renal calcifications, vascular versus nonobstructing calculi. There is no significant hydronephrosis. No ureteral or bladder calculi are visualized. There is a 1 cm left renal hypodensity likely representing a cyst Bowel: There are no transition zones indicate bowel obstruction. There is no evidence of acute diverticulitis. There are no findings to indicate acute appendicitis. There is mild lower rectal wall thickening. Peritoneum: There is no intraperitoneal free air or abdominal ascites. There is persistent mild infiltration of the perirectal fat. Vasculature: The abdominal aorta is normal in course and caliber. Adenopathy: None. Pelvic viscera: There are persistent uterine calcifications. There are no abnormal adnexal masses. There is an indwelling Melchor catheter. Skeletal structures: There is diffuse body wall edema. The examination is motion compromised. IMPRESSION: 1. Moderate bilateral pleural effusions and bilateral pulmonary airspace opacities consistent with a multifocal pneumonia 2. No evidence of bowel obstruction. No evidence of free air 3. Diffuse body wall edema/anasarca 4. Interval development of mild rectal wall thickening. Correlate clinically with regards to a mild proctitis. 5. Interval resolution of the previously identified ascites ACT 112: Negative or not required by law. Electronically signed by: Lowell Estrada M.D. 10/07/2020 3:49 PM ECG Additional Comments: NSR at 85 bpm, no ST changes, normal axis. Interpreted by self. Code Status & VTE Plan VTE Prophylaxis Plan VTE Prophylaxis will be ordered: Yes Supervising Physician Co-Signing Physician Notes I personally saw and examined the patient. I verified all senior points and agree with resident physician Dr Gracie Esteves with the following exceptions and/or additions: 60-year-old female with significant history of cocaine abuse and more recent history of CVA in July, hemolytic anemia, atrial fibrillation and COVID-19 pneumonia in August presents to the ER with lethargy and hypoxia. Unable to get any significant history from the patient. She just wishes to have Ativan. Please see more thorough history above. O/E Irregularly irregular heart rate with systolic murmur throughout most notable in the apex, elevated JVD Chest: Coarse breath sounds bilaterally throughout with surprisingly good air entry to bases. Epigastric tenderness on exam. 3+ pitting edema on left leg, no ulcers on right leg stump. A/P Acute on chronic hypoxic respiratory failure Acute heart failure with preserved ejection fraction -suspect mostly due to severe mitral regurgitation, known difficult to manage fluid status, daily weights, I's and O's, low-sodium diet, fluid restrict 1200 mL, discussed Bumex regimen with resident physician and agree with 2 mg IV twice daily with monitoring BMP in a.m. she was notably hypovolemic on admission when diagnosed with COVID-19 in August, however despite her weight is the same I suspect she has had a lot of muscle weight loss and her fluid status definitively appears hypovolemic at present. Supratherapeutic INR -due to possible (but low likelihood) of pulmonary hemorrhage will reverse INR with vitamin K IV 2.5 mg but continue on a slightly lower dose of warfarin and monitor INR daily otherwise plan as above Resident Activity Tracking Resident Involvement: Resident Care Provided Care Provided: Adult Hospital Medicine (1) Heart failure Heart failure chronicity: chronic Heart failure type: diastolic Qualified Code(s): I50.32 - Chronic diastolic (congestive) heart failure (2) CKD (chronic kidney disease), stage III Chronic kidney disease stage 3 subtype: unspecified whether 3a or 3b Qualified Code(s): N18.30 - Chronic kidney disease, stage 3 unspecified (3) Anemia Anemia type: unspecified type Qualified Code(s): D64.9 - Anemia, unspecified (4) Bipolar disorder Active/Remission status: currently active Psychotic features: without p sychotic features (5) Mitral valve regurgitation Cardiac valve disease etiology: etiology unspecified Qualified Code(s): I34.0 - Nonrheumatic mitral (valve) insufficiency
[2020-10-07] MEDS ORDERED: ALUMINUM/MAGNESIUM SUSP 30 ML UDC PO PRN (20:44)
[2020-10-07] MEDS ORDERED: GLUCOSE 40% GEL 15 GM TUBE PO PRN (20:44)
[2020-10-07] MEDS ORDERED: PANTOprazole 40 MG TAB PO STA (20:44)
[2020-10-07] MEDS ORDERED: CARBOHYDRATES FOR HYPOGLYCEMIA PO PRN (20:44)
[2020-10-07] MEDS ORDERED: ACETAMINOPHEN 325 MG TAB PO PRN (20:44)
[2020-10-07] MEDS ORDERED: DEXTROSE 50% 50 ML SYRINGE IV PRN (20:44)
[2020-10-07] MEDS ORDERED: GLUCAGON FOR INJ 1 MG VIAL SQ PRN (20:44)
[2020-10-07] MEDS ORDERED: IPRATROPIUM BROMIDE/ALBUTEROL respimat INH INH PRN (20:44)
[2020-10-07] MEDS ORDERED: GLUCOSE 10 TABS/TUBE PO PRN (20:44)
[2020-10-07] MEDS ORDERED: bisacodyL 10 MG SUPP PR PRN (20:44)
[2020-10-07] MEDS ORDERED: LORazepam 1 MG TAB PO PRN (20:54)
[2020-10-07] MEDS ORDERED: Albuterol HFA 8 GM Inhaler (Combivent Respimat P&T Subs) INH PRN (21:01)
[2020-10-07] MEDS ORDERED: Ipratropium HFA Inhaler (Combivent Respimat P&T Subs) INH PRN (21:02)
[2020-10-07] MEDS: INSULIN ASPART 100 UNITS/ML 3 ML PEN SC SCH (22:14)
[2020-10-07] MEDS: METOPROLOL SUCC 50MG EXT REL TAB PO SCH (22:20)
[2020-10-07] MEDS: chlorproMAZINE HCL 25 MG TAB PO SCH (22:20)
[2020-10-07 22:27] LABS: Appearance Urine Clear (Clear); Bacteria Urine Automated Negative (Negative); Bilirubin Urine Negative (Negative); Blood Urine 3+ (Negative); Color Urine Yellow; Glucose Urine UA 2+ (Negative); Ketones Urine Negative (Negative); Leukocyte Esterase Urine Negative (Negative); Nitrite Urine Negative (Negative); Protein Urine 4+ (Negative); RBC Urine Automated >30 /hpf (0-4); Specific Gravity Urine 1.021 (1.000-1.030); Urobilinogen Urine Negative (Negative)
[2020-10-07] MEDS: traZODone HCL 50 MG TAB PO SCH (23:22)
[2020-10-08] MEDS ORDERED: ALBUT/IPRATROP 3MG/0.5MG NEB 3 ML VIAL NEB STA (06:07)
[2020-10-08 06:57] LABS: Basophils # (auto) 0.01 K/uL (0-0.2); Basophils % (auto) 0.2 %; Eosinophils # (auto) 0.24 K/uL (0-0.5); Eosinophils % (auto) 4.4 %; Hematocrit (blood only) 32.8 % (37-47); Hemoglobin 10.1 g/dL (12.0-16.0); Immature Granulocytes # (auto) 0.01 K/uL (0.00-0.02); Immature Granulocytes % (auto) 0.2 %; Lymphocytes # (auto) 0.83 K/uL (1.2-3.4); Lymphocytes % (auto) 15.1 %; Mean Corpuscular Hemoglobin 27.4 pg (25-34); Mean Corpuscular Hgb Conc 30.8 g/dL (32-36); Mean Corpuscular Volume 88.9 fL (80-100); Mean Platelet Volume 9.1 fL (7.4-10.4); Monocytes # (auto) 0.44 K/uL (0.11-0.59); Neutrophils # (auto) 3.95 K/uL (1.4-6.5); Neutrophils % (auto) 72.1 %; Platelet Count 256 K/uL (130-400); RDW Coefficient of Variation 20.3 % (11.5-14.5); RDW Standard Deviation 66.5 fL (36.4-46.3); Red Blood Count 3.69 M/uL (4.2-5.4); White Blood Count 5.48 K/uL (4.8-10.8)
[2020-10-08 07:06] LABS: INR 1.5 (0.9-1.1); Prothrombin Time 15.1 Seconds (9.0-12.0)
[2020-10-08 07:30] LABS: Anisocytosis Present
[2020-10-08] MEDS: ALBUT/IPRATROP 3MG/0.5MG NEB 3 ML VIAL NEB SCH ×5 (07:36→22:13)
[2020-10-08 07:37] LABS: Albumin Level 1.8 gm/dl (3.4-5.0); BUN Creatinine Ratio 25.3 (10-20); Calcium 8.4 mg/dl (8.5-10.1); Creatinine Clr Calc Pharmacy 43.6 ml/min; Est GFR (African American) 43.4; Est GFR (Non-African American) 37.4; Potassium 4.1 mmol/L (3.5-5.1)
[2020-10-08 07:40] LABS: Albumin Globulin Ratio 0.4 (0.9-2); Bilirubin,Total 0.4 mg/dl (0.2-1); Globulin 4.8 gm/dl (2.5-4.0); Total Protein 6.6 gm/dl (6.4-8.2)
[2020-10-08] MEDS ORDERED: guaiFENesin 600 MG TABCR PO SCH (09:00)
[2020-10-08] MEDS ORDERED: FERROUS SULFATE 325 MG TAB PO SCH (09:00)
[2020-10-08] MEDS: INSULIN ASPART 100 UNITS/ML 3 ML PEN SC SCH ×4 (09:04→22:48)
[2020-10-08] MEDS: FLUTICASONE FUROATE 100MCG 14 PUFFS/INHALER INH SCH (09:14)
[2020-10-08] MEDS: UMECLIDINIUM/VILANTEROL 62.5/25MCG 7 PUFFS/INHALER INH SCH (09:14)
[2020-10-08] MEDS: NICOTINE 21 MG/24 HR TDSY TD SCH (09:15)
[2020-10-08] MEDS: LIDOCAINE 5% 1 PATCH TD SCH (09:16)
[2020-10-08] MEDS: BUMETANIDE 2 MG in SYRINGE 0 ML IV SCH ×2 (09:16→17:14)
[2020-10-08] MEDS: METOPROLOL SUCC 50MG EXT REL TAB PO SCH ×2 (09:17→20:47)
[2020-10-08] MEDS: CHOLECALCIFEROL 1,000 UNITS 25 MCG TAB PO SCH (09:18)
[2020-10-08] MEDS: ASPIRIN 81 MG ECTAB PO SCH (09:19)
[2020-10-08] MEDS: INSULIN GLARGINE SOLOSTAR 100 UNITS/ML 3 ML PEN SQ SCH (10:06)
--- NOTE | 2020-10-08 12:14 | Electrocardiogram Report ---
Test Reason : Blood Pressure : / mmHG Vent. Rate : 085 BPM Atrial Rate : 085 BPM P-R Int : 150 ms QRS Dur : 090 ms QT Int : 382 ms P-R-T Axes : 049 016 053 degrees QTc Int : 454 ms Normal sinus rhythm Possible Left atrial enlargement RSR' or QR pattern in V1 suggests right ventricular conduction delay Borderline ECG When compared with ECG of 23-AUG-2020 11:30, Non-specific change in ST segment in Anterior leads Confirmed by Enio Bledsoe ([id number]) on 10/08/2020 12:13:50 PM Referred By: REFERRED SELF Confirmed By:Enio Bledsoe
[2020-10-08] MEDS: oxyCODONE HCL IR 5 MG TAB (IMMEDIATE RELEASE) PO PRN (12:16)
[2020-10-08] MEDS ORDERED: ONDANSETRON INJ 2 MG/ML 2 ML VIAL IV PRN (13:40)
--- NOTE | 2020-10-08 13:44 | Hospitalist Progress Note ---
Date of Service October 08, 2020 Assessment & Plan (1) Acute on chronic diastolic (congestive) heart failure: EF was 65 - 70% on echo in 08/2020. BNP elevated and CXR showed pulmonary edema. Procalcitonin was normal, making bacterial pneumonia less likely. - Continue Bumex 2 mg IV BID - Monitor I&Os, weights (2) History of COVID-19: Diagnosed with COVID-19 08/15/20. Repeat PCR COVID testing on 10/07 was positive. Negative influenza A/B and RSV testing on admission. - Can clear isolation precautions. - No fevers; low concern for recurrent Covid. (3) IDDM (insulin dependent diabetes mellitus): A1c was 7.2% in 08/2020. - Basal and sliding scale insulin (4) Anemia: No current signs of bleeding. Hgb at baseline; Hgb 11.4 on admission. - Presently 10.1. (5) Atrial fibrillation and flutter: Paroxysmal afib. Patient in sinus rhythm at present. - Continue metoprolol - Continue warfarin - INR was 5.2 on admission. Admitting team gave Vitamin K 2.5 mg IV x 1. Resultant INR is now 1.5 today. (6) Bipolar disorder: With strong anxiety component. - Continue home chlorpromazine, trazodone, and ziprasidone (7) CKD (chronic kidney disease), stage III: Baseline Cr. ~1.5 - 2.0. - Presently at baseline. - Monitor with diuresis. (8) COPD (chronic obstructive pulmonary disease): No wheezing noted today. - Continue home maintenance inhalers (formulary are umeclidinium/vilanterol & fluticasone) - DuoNebs standing and PRN (9) DVT prophylaxis: Warfarin - INR presently 1.5. Admission and Anticipated Discharge Date Admission Date: October 07, 2020 Subjective Unable to respond today due to overnight meds. Just opens her eyes and falls back asleep. Review of Systems Review of Systems: Unobtainable due to reduced consciousness Physical Exam Constitutional: WD/WN, vitals as above + lethargic Eyes: EOM intact bilaterally; no conjunctival abnormality ENMT: external ear and nose normal, oropharynx normal Neck: trachea midline, no thyromegaly normal visual inspection Respiratory: normal respiratory effort, lungs clear to auscultation no respiratory distress Cardiovascular: RRR, no murmur, no edema Gastrointestinal (Abdomen): Inspection/Auscultation: abdomen normal to inspection; abdomen not distended Musculoskeletal: no cyanosis or clubbing, extremities motor strength 5/5 Skin: no rashes, warm and dry Neurologic: moves all extremities and + obtunded; + not awake Psychiatric: Orientation: + not alert and + not oriented to person Results & Data Results & Data ([facility]) Vital Signs (Past 12 Hours) Vital Signs Temp Pulse Pulse Resp BP Pulse Ox 10/08/20 11:30 37.4 C 80 20 147/73 H 94 10/08/20 11:20 81 26 H 96 10/08/20 08:05 36.5 C 78 16 138/91 98 10/08/20 08:00 87 10/08/20 07:38 80 24 99 10/08/20 03:22 36.8 C 83 19 141/94 H 99 PG Care Time/CCT Total # of Minutes Spent Total Time Spent with Patient: Total time spent is greater than 50% in coordination of care (as documented) at patient's floor/unit and/or counseling patient: Coding Level of Care Code 33523 Subseq Hosp Care Lvl 2 Diagnoses Acute on chronic diastolic (congestive) heart failure I50.33 History of COVID-19 Z86.16 IDDM (insulin dependent diabetes mellitus) Anemia D64.9 Anemia type: unspecified type Atrial fibrillation and flutter I48.91; I48.92 Bipolar disorder F31.9 Active/Remission status: currently active Psychotic features: without psychotic features CKD (chronic kidney disease), stage III N18.30 Chronic kidney disease stage 3 subtype: unspecified whether 3a or 3b COPD (chronic obstructive pulmonary disease) J44.9 DVT prophylaxis Z29.9 (1) Anemia Anemia type: unspecified type Qualified Code(s): D64.9 - Anemia, unspecified (2) Bipolar disorder Active/Remission status: currently active Psychotic features: without psychotic features (3) CKD (chronic kidney disease), stage III Chronic kidney disease stage 3 subtype: unspecified whether 3a or 3b Qualified Code(s): N18.30 - Chronic kidney disease, stage 3 unspecified
[2020-10-08] MEDS: LORazepam 0.5 MG TAB PO PRN (14:49)
[2020-10-08] MEDS: MAGNESIUM HYDROXIDE SUSP 30 ML UDC PO PRN (14:49)
[2020-10-08] MEDS: WARFARIN SOD 5 MG TAB PO SCH (16:48)
[2020-10-08] MEDS: chlorproMAZINE HCL 25 MG TAB PO SCH (20:46)
[2020-10-08] MEDS: traZODone HCL 50 MG TAB PO SCH (20:48)
[2020-10-09] MEDS: ALBUT/IPRATROP 3MG/0.5MG NEB 3 ML VIAL NEB SCH ×3 (02:21→11:43)
[2020-10-09 05:57] LABS: Hematocrit (blood only) 33.2 % (37-47); Hemoglobin 10.5 g/dL (12.0-16.0); Mean Corpuscular Hemoglobin 28.2 pg (25-34); Mean Corpuscular Hgb Conc 31.6 g/dL (32-36); Mean Corpuscular Volume 89.2 fL (80-100); Mean Platelet Volume 9.2 fL (7.4-10.4); Platelet Count 245 K/uL (130-400); RDW Coefficient of Variation 20.5 % (11.5-14.5); RDW Standard Deviation 67.3 fL (36.4-46.3); Red Blood Count 3.72 M/uL (4.2-5.4)
[2020-10-09 06:05] LABS: INR 1.7 (0.9-1.1); Prothrombin Time 16.8 Seconds (9.0-12.0)
[2020-10-09 06:32] LABS: BUN Creatinine Ratio 25.9 (10-20); Calcium 7.8 mg/dl (8.5-10.1); Creatinine Clr Calc Pharmacy 38.8 ml/min; Est GFR (African American) 37.6; Est GFR (Non-African American) 32.4; Magnesium 2.1 mg/dl (1.8-2.4); Potassium 5.2 mmol/L (3.5-5.1)
[2020-10-09] MEDS: CHOLECALCIFEROL 1,000 UNITS 25 MCG TAB PO SCH (08:30)
[2020-10-09] MEDS: NICOTINE 21 MG/24 HR TDSY TD SCH (08:30)
[2020-10-09] MEDS: ASPIRIN 81 MG ECTAB PO SCH (08:31)
[2020-10-09] MEDS: FLUTICASONE FUROATE 100MCG 14 PUFFS/INHALER INH SCH (08:31)
[2020-10-09] MEDS: UMECLIDINIUM/VILANTEROL 62.5/25MCG 7 PUFFS/INHALER INH SCH (08:31)
[2020-10-09] MEDS: LIDOCAINE 5% 1 PATCH TD SCH ×2 (08:32→08:47)
[2020-10-09] MEDS: INSULIN GLARGINE SOLOSTAR 100 UNITS/ML 3 ML PEN SQ SCH (08:32)
[2020-10-09] MEDS: INSULIN ASPART 100 UNITS/ML 3 ML PEN SC SCH ×4 (08:34→20:54)
[2020-10-09] MEDS: METOPROLOL SUCC 50MG EXT REL TAB PO SCH ×2 (08:35→19:20)
[2020-10-09] MEDS: LORazepam 0.5 MG TAB PO PRN ×2 (08:43→16:48)
[2020-10-09] MEDS: oxyCODONE HCL IR 5 MG TAB (IMMEDIATE RELEASE) PO PRN ×2 (08:46→16:47)
--- NOTE | 2020-10-09 12:44 | Billing Data ---
Date of Service October 07, 2020 Coding Level of Care Code 40120 Initial Inpt Care Lvl 3
--- NOTE | 2020-10-09 13:29 | Hospitalist Progress Note ---
Date of Service October 09, 2020 Assessment & Plan (1) Acute on chronic diastolic (congestive) heart failure: EF was 65 - 70% on echo in 08/2020. BNP elevated and CXR showed pulmonary edema. Procalcitonin was normal, making bacterial pneumonia less likely. - Continue Bumex 2 mg IV BID - Monitor I&Os, weights - Slight Cr. bump today. Will hold PM Bumex dose. (2) History of COVID-19: Diagnosed with COVID-19 08/15/20. Repeat PCR COVID testing on 10/07 was positive. Negative influenza A/B and RSV testing on admission. - Cleared isolation precautions. - No fevers; low concern for recurrent Covid. (3) IDDM (insulin dependent diabetes mellitus): A1c was 7.2% in 08/2020. - Basal and sliding scale insulin -> Some lower sugars. Will decrease long- acting insulin. - Last admission, she was eventually off all long-acting. (4) Anemia: No current signs of bleeding. Hgb at baseline; Hgb 11.4 on admission. - Presently 10.5. (5) Atrial fibrillation and flutter: Paroxysmal afib. Patient in sinus rhythm at present. - Continue metoprolol - Continue warfarin - INR was 5.2 on admission. Admitting team gave Vitamin K 2.5 mg IV x 1. Resultant INR is now 1.5 today. (6) Bipolar disorder: With strong anxiety component. - Continue home chlorpromazine and ziprasidone - Will hold PM trazodone for a day or two as she is very lethargic in the mornings. (7) CKD (chronic kidney disease), stage III: Baseline Cr. ~1.5 - 2.0. - Presently at baseline. - Monitor with diuresis. (8) COPD (chronic obstructive pulmonary disease): No wheezing noted today. - Continue home maintenance inhalers (formulary are umeclidinium/vilanterol & fluticasone) - DuoNebs standing and PRN (9) DVT prophylaxis: Warfarin - INR presently 1.7. Admission and Anticipated Discharge Date Admission Date: October 07, 2020 Subjective More arousable today with ability to open eyes and say a few simple yes/no answers before drifting back off to sleep. Reports no fevers/chills, chest pain, shortness of breath, abdominal pain, nausea, or vomiting. Physical Exam Constitutional: WD/WN, vitals as above + lethargic Eyes: EOM intact bilaterally; no conjunctival abnormality ENMT: external ear and nose normal, oropharynx normal Neck: trachea midline, no thyromegaly normal visual inspection Respiratory: normal respiratory effort, lungs clear to auscultation no respiratory distress Cardiovascular: RRR, no murmur, no edema Gastrointestinal (Abdomen): Inspection/Auscultation: abdomen normal to inspection; abdomen not distended Musculoskeletal: no cyanosis or clubbing, extremities motor strength 5/5 Skin: no rashes, warm and dry Neurologic: moves all extremities; + not awake Psychiatric: Orientation: oriented to person; + not alert Results & Data Results & Data ([facility]) Vital Signs (Past 12 Hours) Vital Signs Temp Pulse Pulse Resp BP Pulse Ox 10/09/20 11:27 87 16 97 10/09/20 10:42 37.0 C 83 20 116/75 96 10/09/20 08:00 85 10/09/20 07:40 36.9 C 84 22 115/76 97 10/09/20 04:00 36.9 C 84 18 122/80 99 10/09/20 02:23 84 18 96 PG Care Time/CCT Total # of Minutes Spent Total Time Spent with Patient: Total time spent is greater than 50% in coordination of care (as documented) at patient's floor/unit and/or counseling patient: Coding Level of Care Code 72091 Subseq Hosp Care Lvl 2 Diagnoses Acute on chronic diastolic (congestive) heart failure I50.33 History of COVID-19 Z86.16 IDDM (insulin dependent diabetes mellitus) Anemia D64.9 Anemia type: unspecified type Atrial fibrillation and flutter I48.91; I48.92 Bipolar disorder F31.9 Active/Remission status: currently active Psychotic features: without psychotic features CKD (chronic kidney disease), stage III N18.30 Chronic kidney disease stage 3 subtype: unspecified whether 3a or 3b COPD (chronic obstructive pulmonary disease) J44.9 DVT prophylaxis Z29.9 (1) Anemia Anemia type: unspecified type Qualified Code(s): D64.9 - Anemia, unspecified (2) Bipolar disorder Active/Remission status: currently active Psychotic features: without psychotic features (3) CKD (chronic kidney disease), stage III Chronic kidney disease stage 3 subtype: unspecified whether 3a or 3b Qualified Code(s): N18.30 - Chronic kidney disease, stage 3 unspecified
[2020-10-09] MEDS: LACTULOSE SYRUP 30 GM/45 ML UDP PO SCH (14:28)
[2020-10-09] MEDS: WARFARIN SOD 5 MG TAB PO SCH (16:47)
[2020-10-09] MEDS: POLYETHYLENE (MIRALAX) 17 GM PACK PO PRN (17:35)
[2020-10-09] MEDS: MAGNESIUM HYDROXIDE SUSP 30 ML UDC PO PRN (17:36)
[2020-10-09] MEDS: chlorproMAZINE HCL 25 MG TAB PO SCH (19:20)
[2020-10-10 06:08] LABS: Mean Corpuscular Hemoglobin 27.5 pg (25-34); Mean Corpuscular Hgb Conc 30.3 g/dL (32-36); Mean Corpuscular Volume 90.7 fL (80-100); Mean Platelet Volume 9.1 fL (7.4-10.4); Platelet Count 235 K/uL (130-400); RDW Coefficient of Variation 20.3 % (11.5-14.5); RDW Standard Deviation 68.5 fL (36.4-46.3); Red Blood Count 3.64 M/uL (4.2-5.4); White Blood Count 5.16 K/uL (4.8-10.8)
[2020-10-10 06:13] LABS: INR 2.9 (0.9-1.1); Prothrombin Time 27.4 Seconds (9.0-12.0)
[2020-10-10 06:36] LABS: BUN Creatinine Ratio 29.2 (10-20); Creatinine Clr Calc Pharmacy 37.3 ml/min; Est GFR (African American) 35.8; Est GFR (Non-African American) 30.9; Magnesium 2.5 mg/dl (1.8-2.4)
[2020-10-10 09:06] LABS: Base Excess VBG 5.3 mEq/L; Oxygen Saturation VBG 69.8 %; pH VBG 7.33 (7.36-7.41)
[2020-10-10] MEDS: INSULIN GLARGINE SOLOSTAR 100 UNITS/ML 3 ML PEN SQ SCH (09:19)
[2020-10-10] MEDS: INSULIN ASPART 100 UNITS/ML 3 ML PEN SC SCH ×4 (09:20→21:54)
[2020-10-10] MEDS: NICOTINE 21 MG/24 HR TDSY TD SCH (09:21)
[2020-10-10] MEDS: UMECLIDINIUM/VILANTEROL 62.5/25MCG 7 PUFFS/INHALER INH SCH (09:23)
[2020-10-10] MEDS: LACTULOSE SYRUP 30 GM/45 ML UDP PO SCH (09:23)
[2020-10-10] MEDS: FLUTICASONE FUROATE 100MCG 14 PUFFS/INHALER INH SCH (09:23)
[2020-10-10 09:24] LABS: Alanine Aminotransferase 30 U/L (12-78); Albumin Level 1.6 gm/dl (3.4-5.0); Alkaline Phosphatase 128 U/L (45-117); Aspartate Aminotransferase 20 U/L (15-37); Bilirubin Direct < 0.1 mg/dl (0-0.2); Bilirubin,Total 0.3 mg/dl (0.2-1); NT Pro B Type Natriuretic Pept 7146 pg/ml (0-900); Total Protein 6.1 gm/dl (6.4-8.2)
[2020-10-10] MEDS: LIDOCAINE 5% 1 PATCH TD SCH (09:26)
[2020-10-10] MEDS: ASPIRIN 81 MG ECTAB PO SCH (09:26)
[2020-10-10] MEDS: CHOLECALCIFEROL 1,000 UNITS 25 MCG TAB PO SCH (09:26)
[2020-10-10] MEDS: METOPROLOL SUCC 50MG EXT REL TAB PO SCH ×2 (09:27→20:02)
--- NOTE | 2020-10-10 10:56 | CT Scan Report ---
CT chest diagnostic wo con CT DOSE: 780.48 mGy.cm HISTORY: Cough. Altered mental status. TECHNIQUE: Multiaxial CT images of the chest were performed without contrast. A dose lowering techni que was utilized adhering to the principles of ALARA. COMPARISON: Abdomen and pelvis CT 10/07/2020. FINDINGS: No pneumothorax. Trace mucoid material within the trachea and mainstem bronchi. Limited vie ws the upper abdomen demonstrate a normal liver and spleen. Moderate bilateral pleural effusions, rig ht greater than left. The heart is normal in size. No significant pericardial effusion. Normal calibe r thoracic aorta. Normal esophagus. Mild mediastinal and bilateral hilar lymphadenopathy. No suspicio us lytic or blastic osseous lesions. Diffuse interstitial thickening with multifocal patchy airspace opacities seen throughout the lungs. Consolidation within the bilateral lower lobes posteriorly likel y represents compressive atelectasis from the pleural effusions. IMPRESSION: 1. Multifocal patchy bilateral airspace opacities with diffuse interstitial thickening and moderate b ilateral pleural effusions. This could represent a multifocal pneumonia or pulmonary edema. 2. Trace mucoid material within the trachea and bilateral mainstem bronchi. 3. Mild mediastinal and bilateral hilar lymphadenopathy. ACT 112: Negative or not required by law. Electronically signed by: Aly Ponce M.D. 10/10/2020 10:55 AM
[2020-10-10] MEDS ORDERED: BUMETANIDE 2 MG in SYRINGE 0 ML IV ONE (11:00)
[2020-10-10] MEDS: oxyCODONE HCL IR 5 MG TAB (IMMEDIATE RELEASE) PO PRN ×2 (11:21→17:36)
[2020-10-10] MEDS: LORazepam 0.5 MG TAB PO PRN ×2 (11:21→17:36)
--- NOTE | 2020-10-10 13:36 | Hospitalist Progress Note ---
Date of Service October 10, 2020 Assessment & Plan (1) Encephalopathy: Metabolic vs. medication-related encephalopathy. - Very tired and lethargic over the last 2 days. Does have periods of being more awake and always arousable and protecting airway. - No known liver disease, but NH3 checked twice and high * Started lactulose on 10/09; will monitor BMs * Will get RUQ u/s - Possibly medication-related as she is on many sedating medications * Will reduce sedating meds without stopping entirely to avoid bipolar swings * Psychiatry consult to help adjust medications to minimize sedation. - Treat possible aspiration pneumonia with Unasyn, though procalcitonin is low. - Full infectious work-up with blood cultures, UA. No neck stiffness, photophobia, fever, leukocytosis to suggest meningitis. (2) Acute on chronic diastolic (congestive) heart failure: EF was 65 - 70% on echo in 08/2020. BNP elevated and CXR showed pulmonary edema. Procalcitonin was normal, making bacterial pneumonia less likely. - Monitor I&Os, weights - Slight Cr. bump today. Will give single dose of Bumex 2mg IV today. (3) History of COVID-19: Diagnosed with COVID-19 08/15/20. Repeat PCR COVID testing on 10/07 was positive. Negative influenza A/B and RSV testing on admission. - Cleared isolation precautions. - No fevers; low concern for recurrent Covid. (4) IDDM (insulin dependent diabetes mellitus): A1c was 7.2% in 08/2020. - Basal and sliding scale insulin -> Some lower sugars. Decreased long-acting insulin to 10 units QAM. - Last admission, she was eventually off all long-acting. (5) Anemia: No current signs of bleeding. Hgb at baseline; Hgb 11.4 on admission. - Presently 10.0. (6) Atrial fibrillation and flutter: Paroxysmal afib. Patient in sinus rhythm at present. - Continue metoprolol - Continue warfarin - INR was 5.2 on admission. Admitting team gave Vitamin K 2.5 mg IV x 1. Resultant INR was 1.5. Today, INR up to 2.9, likely from too high a dose of warfarin and poor PO intake. Holding warfarin and will just watch INR for a day or two. (7) Bipolar disorder: With strong anxiety component. - Continue home chlorpromazine and ziprasidone. - Held PM trazodone starting on 10/09 for morning lethargy. - Psych consult as above (8) CKD (chronic kidney disease), stage III: Baseline Cr. ~1.5 - 2.0. - Presently at baseline. - Monitor with diuresis. (9) COPD (chronic obstructive pulmonary disease): No wheezing noted today. - Continue home maintenance inhalers (formulary are umeclidinium/vilanterol & fluticasone) - DuoNebs standing and PRN (10) DVT prophylaxis: Warfarin - INR presently 2.9. Admission and Anticipated Discharge Date Admission Date: October 07, 2020 Subjective Obtunded today with trouble waking up. Will wake up and smile and make eye contact, but then falls back asleep. Review of Systems Review of Systems: Unobtainable due to reduced consciousness Physical Exam Constitutional: WD/WN, vitals as above + lethargic Eyes: EOM intact bilaterally; no conjunctival abnormality ENMT: external ear and nose normal, oropharynx normal Neck: trachea midline, no thyromegaly normal visual inspection Respiratory: normal respiratory effort, lungs clear to auscultation no respiratory distress Cardiovascular: RRR, no murmur, no edema Gastrointestinal (Abdomen): Inspection/Auscultation: abdomen normal to inspection; abdomen not distended Musculoskeletal: no cyanosis or clubbing, extremities motor strength 5/5 Skin: no rashes, warm and dry Neurologic: moves all extremities; + not awake Psychiatric: Orientation: + not alert and + not oriented to person Results & Data Results & Data ([facility]) Vital Signs (Past 12 Hours) Vital Signs Temp Pulse Pulse Resp BP Pulse Ox 10/10/20 11:26 81 22 92 10/10/20 11:04 36.2 C L 80 19 118/79 97 10/10/20 07:18 36.5 C 76 20 118/77 99 10/10/20 07:05 75 10/10/20 04:00 36.7 C 74 20 126/83 94 10/10/20 03:02 84 PG Care Time/CCT Total # of Minutes Spent Total Time Spent with Patient: Total time spent is greater than 50% in coordination of care (as documented) at patient's floor/unit and/or counseling patient: Coding Level of Care Code 40214 Subseq Hosp Care Lvl 3 Diagnoses Encephalopathy G93.40 Acute on chronic diastolic (congestive) heart failure I50.33 History of COVID-19 Z86.16 IDDM (insulin dependent diabetes mellitus) Anemia D64.9 Anemia type: unspecified type Atrial fibrillation and flutter I48.91; I48.92 Bipolar disorder F31.9 Active/Remission status: currently active Psychotic features: without psychotic features CKD (chronic kidney disease), stage III N18.30 Chronic kidney disease stage 3 subtype: unspecified whether 3a or 3b COPD (chronic obstructive pulmonary disease) J44.9 DVT prophylaxis Z29.9 (1) Anemia Anemia type: unspecified type Qualified Code(s): D64.9 - Anemia, unspecified (2) Bipolar disorder Active/Remission status: currently active Psychotic features: without psychotic features (3) CKD (chronic kidney disease), stage III Chronic kidney disease stage 3 subtype: unspecified whether 3a or 3b Qualified Code(s): N18.30 - Chronic kidney disease, stage 3 unspecified
[2020-10-10] MEDS: AMPICILLIN/SULBACTAM SOD 3,000 MG in 0.9 % SODIUM CHLORIDE 100 ML IV SCH ×2 (14:09→20:03)
[2020-10-10 14:19] LABS: Base Excess VBG 4.9 mEq/L; Oxygen Saturation VBG 79.1 %; pH VBG 7.35 (7.36-7.41)
--- NOTE | 2020-10-10 14:31 | Communication Note ---
Date of Service: October 10, 2020 liaison will attempt to obtain collateral/more psych hx and background. Patient admit covid + from custodial with encephalopathy, mildly eleated ammonia level. Concerns about excessive sedation--on Geodon BID, Ativan (decreased to lower dose prn), thorazine 150 mg hs, trazodone 25 mg (held). Geodon requires meal for absorption so changed to BID with meals with hold for excessive sedation. Avoid prn Ativan if able, particularly in combo with opiates as can affect respiration. Will decrease throazine to 50 mg this hs with plan to hold for sedation and reassess.
--- NOTE | 2020-10-10 15:17 | Ultrasound Report ---
ABDOMINAL ULTRASOUND, RIGHT UPPER QUADRANT HISTORY: Shortness of breath. Right upper quadrant pain.. COMPARISON: Abdomen and pelvis CT 10/07/2020. FINDINGS: Pancreas: The pancreatic tail is obscured by overlying bowel gas. The remaining portions of the pancr eas are within normal limits. Liver: Unremarkable. Gallbladder: No gallbladder wall thickening. No gallstones. CBD: 4 mm. Right kidney: No hydronephrosis. An 8 mm cyst. Miscellaneous: Right pleural effusion is again noted. IMPRESSION: 1. Redemonstration of the patient's known right pleural effusion. 2. Normal gallbladder. No gallstone. 3. Normal liver. ACT 112: Negative or not required by law. Electronically signed by: Aly Ponce M.D. 10/10/2020 3:15 PM
[2020-10-10] MEDS: chlorproMAZINE HCL 25 MG TAB PO SCH (20:01)
[2020-10-11] MEDS: oxyCODONE HCL IR 5 MG TAB (IMMEDIATE RELEASE) PO PRN ×2 (01:03→07:56)
[2020-10-11] MEDS: AMPICILLIN/SULBACTAM SOD 3,000 MG in 0.9 % SODIUM CHLORIDE 100 ML IV SCH ×4 (01:22→20:46)
[2020-10-11 05:57] LABS: Hematocrit (blood only) 31.3 % (37-47); Mean Corpuscular Hemoglobin 28.7 pg (25-34); Mean Corpuscular Hgb Conc 31.9 g/dL (32-36); Mean Corpuscular Volume 89.7 fL (80-100); Mean Platelet Volume 9.1 fL (7.4-10.4); Platelet Count 225 K/uL (130-400); RDW Coefficient of Variation 19.8 % (11.5-14.5); RDW Standard Deviation 65.2 fL (36.4-46.3); Red Blood Count 3.49 M/uL (4.2-5.4); White Blood Count 5.99 K/uL (4.8-10.8)
[2020-10-11 06:01] LABS: HCO3 VBG 34 mmol/L; PCO2 VBG 69 mmHg (38-50); PO2 VBG 32 mmHg; pH VBG 7.31 (7.36-7.41)
[2020-10-11 06:04] LABS: Oxygen Saturation VBG < 60.0 %
[2020-10-11 06:27] LABS: INR 3.5 (0.9-1.1); Prothrombin Time 32.5 Seconds (9.0-12.0)
[2020-10-11 06:34] LABS: Albumin Level 1.7 gm/dl (3.4-5.0); BUN Creatinine Ratio 29.9 (10-20); Calcium 7.8 mg/dl (8.5-10.1); Creatinine Clr Calc Pharmacy 37.3 ml/min; Est GFR (African American) 35.8; Est GFR (Non-African American) 30.9; Magnesium 2.5 mg/dl (1.8-2.4); Potassium 4.8 mmol/L (3.5-5.1)
[2020-10-11 06:39] LABS: Albumin Globulin Ratio 0.4 (0.9-2); Bilirubin,Total 0.4 mg/dl (0.2-1); Globulin 4.7 gm/dl (2.5-4.0); Total Protein 6.4 gm/dl (6.4-8.2)
[2020-10-11] MEDS: METOPROLOL SUCC 50MG EXT REL TAB PO SCH ×2 (07:44→21:18)
[2020-10-11] MEDS: CHOLECALCIFEROL 1,000 UNITS 25 MCG TAB PO SCH (07:45)
[2020-10-11] MEDS: ASPIRIN 81 MG ECTAB PO SCH (07:45)
[2020-10-11] MEDS: LACTULOSE SYRUP 30 GM/45 ML UDP PO SCH (07:46)
[2020-10-11] MEDS: LIDOCAINE 5% 1 PATCH TD SCH (07:46)
[2020-10-11] MEDS: NICOTINE 21 MG/24 HR TDSY TD SCH (07:46)
[2020-10-11] MEDS: UMECLIDINIUM/VILANTEROL 62.5/25MCG 7 PUFFS/INHALER INH SCH (07:47)
[2020-10-11] MEDS: FLUTICASONE FUROATE 100MCG 14 PUFFS/INHALER INH SCH (07:47)
[2020-10-11] MEDS: INSULIN ASPART 100 UNITS/ML 3 ML PEN SC SCH ×4 (09:13→21:17)
[2020-10-11] MEDS: INSULIN GLARGINE SOLOSTAR 100 UNITS/ML 3 ML PEN SQ SCH (09:15)
[2020-10-11] MEDS ORDERED: BUMETANIDE 2 MG in SYRINGE 0 ML IV ONE (09:30)
--- NOTE | 2020-10-11 12:12 | Communication Note ---
Date of Service: October 11, 2020 liaison attempted to see patient to engage further in more formal consult. She remains sedated. Given that on thorazine, Geodon, etc >1 year, less likely psych meds and more likely overall medical encephalopathy or recent addition of Ativan with taking time to clear benzos. Will hold lower dose thorazine tonight and consult service will follow. Case reviewed with Dr. Reaves who will assume responsbility for service 10/12/20.
--- NOTE | 2020-10-11 12:22 | Hospitalist Progress Note ---
Date of Service October 11, 2020 Assessment & Plan (1) Encephalopathy: Metabolic vs. medication-related encephalopathy. - Very tired and lethargic over the weekend. Does have periods of being more awake and always arousable and protecting airway. - No known liver disease, but NH3 checked twice and high * Started lactulose on 10/09; will monitor BM-> Having some looser stool now, so I do not want to increase. * RUQ u/s -> No liver disease. - Possibly medication-related as she is on many sedating medications * Working with psychiatry to help adjust medications to minimize sedation. - Treat possible aspiration pneumonia with Unasyn, though procalcitonin is low. MRSA swab. - Will get [employer] evaluation as RN feels she could be aspirating with food. - Full infectious work-up with blood cultures, UA. No neck stiffness, photophobia, fever, leukocytosis to suggest meningitis/encephalitis. (2) Acute on chronic diastolic (congestive) heart failure: EF was 65 - 70% on echo in 08/2020. BNP elevated and CXR showed pulmonary edema. Procalcitonin was normal, making bacterial pneumonia less likely. - Monitor I&Os, weights - Cr. stable today at 1.8 which is near baseline. Will give single dose of Bumex 2mg IV today. - Weight is up a bit today, but is bedside. I&Os indicate net negative each day. Repeat BNP is downtrending, though slowly. (3) History of COVID-19: Diagnosed with COVID-19 08/15/20. Repeat PCR COVID testing on 10/07 was positive. Negative influenza A/B and RSV testing on admission. - Cleared isolation precautions. - No fevers; low concern for recurrent Covid. (4) IDDM (insulin dependent diabetes mellitus): A1c was 7.2% in 08/2020. - Basal and sliding scale insulin -> Some lower sugars, especially in the morning. Will stop all long-acting but increase mealtime. - Last admission, she was eventually off all long-acting. (5) Anemia: No current signs of bleeding. Hgb at baseline; Hgb 11.4 on admission. - Presently 10.0. (6) Atrial fibrillation and flutter: Paroxysmal afib. Patient in sinus rhythm at present. - Continue metoprolol - Continue warfarin - INR was 5.2 on admission. Admitting team gave Vitamin K 2.5 mg IV x 1. Resultant INR was 1.5. Today, INR up to 3.5, likely from too high a dose of warfarin and poor PO intake. Holding warfarin and will just watch INR for a day or two. - Restart warfarin at a LOWER dose. (7) Bipolar disorder: With strong anxiety component. - Continue home ziprasidone with meals. - Held PM trazodone starting on 10/09 for morning lethargy. Held evening chlorpromazine starting on 10/10 per psych. - Psych consult as above (8) CKD (chronic kidney disease), stage III: Baseline Cr. ~1.5 - 2.0. - Presently at baseline, 1.8. - Monitor with diuresis. (9) COPD (chronic obstructive pulmonary disease): No wheezing noted today. - Continue home maintenance inhalers (formulary are umeclidinium/vilanterol & fluticasone) - DuoNebs standing and PRN (10) DVT prophylaxis: Warfarin - INR presently 3.5. Admission and Anticipated Discharge Date Admission Date: October 07, 2020 Subjective Mental status improving with more spontaneous eye opening and responding to questions. Does fall back asleep relatively quickly. Reports no fevers/chills, chest pain, shortness of breath, abdominal pain, nausea, or vomiting. Physical Exam Constitutional: WD/WN, vitals as above + lethargic Eyes: EOM intact bilaterally; no conjunctival abnormality ENMT: external ear and nose normal, oropharynx normal Neck: trachea midline, no thyromegaly normal visual inspection Respiratory: normal respiratory effort, lungs clear to auscultation no respiratory distress Cardiovascular: RRR, no murmur, no edema Gastrointestinal (Abdomen): Inspection/Auscultation: abdomen normal to inspection; abdomen not distended Musculoskeletal: no cyanosis or clubbing, extremities motor strength 5/5 Skin: no rashes, warm and dry Neurologic: moves all extremities and awake Psychiatric: Orientation: oriented to person; + not alert Results & Data Results & Data ([facility]) Vital Signs (Past 12 Hours) Vital Signs Temp Pulse Pulse Resp BP Pulse Ox 10/11/20 11:47 36.9 C 84 19 145/92 H 96 10/11/20 09:00 75 10/11/20 07:38 36.7 C 78 20 118/77 100 10/11/20 03:23 36.7 C 77 20 117/76 97 PG Care Time/CCT Total # of Minutes Spent Total Time Spent with Patient: Total time spent is greater than 50% in coordination of care (as documented) at patient's floor/unit and/or counseling patient: Coding Level of Care Code 18367 Subseq Hosp Care Lvl 3 Diagnoses Encephalopathy G93.40 Acute on chronic diastolic (congestive) heart failure I50.33 History of COVID-19 Z86.16 IDDM (insulin dependent diabetes mellitus) Anemia D64.9 Anemia type: unspecified type Atrial fibrillation and flutter I48.91; I48.92 Bipolar disorder F31.9 Active/Remission status: currently active Psychotic features: without psychotic features CKD (chronic kidney disease), stage III N18.30 Chronic kidney disease stage 3 subtype: unspecified whether 3a or 3b COPD (chronic obstructive pulmonary disease) J44.9 DVT prophylaxis Z29.9 (1) Anemia Anemia type: unspecified type Qualified Code(s): D64.9 - Anemia, unspecified (2) Bipolar disorder Active/Remission status: currently active Psychotic features: without psychotic features (3) CKD (chronic kidney disease), stage III Chronic kidney disease stage 3 subtype: unspecified whether 3a or 3b Qualified Code(s): N18.30 - Chronic kidney disease, stage 3 unspecified
[2020-10-12] MEDS: AMPICILLIN/SULBACTAM SOD 3,000 MG in 0.9 % SODIUM CHLORIDE 100 ML IV SCH ×2 (01:59→08:13)
[2020-10-12] MEDS: oxyCODONE HCL IR 5 MG TAB (IMMEDIATE RELEASE) PO PRN ×3 (01:59→19:20)
[2020-10-12 06:43] LABS: Hemoglobin 12.1 g/dL (12.0-16.0); Mean Corpuscular Hemoglobin 28.5 pg (25-34); Mean Corpuscular Hgb Conc 32.7 g/dL (32-36); Mean Corpuscular Volume 87.3 fL (80-100); Mean Platelet Volume 9.4 fL (7.4-10.4); Platelet Count 271 K/uL (130-400); RDW Coefficient of Variation 19.5 % (11.5-14.5); RDW Standard Deviation 62.8 fL (36.4-46.3); Red Blood Count 4.24 M/uL (4.2-5.4); White Blood Count 7.22 K/uL (4.8-10.8)
[2020-10-12 06:57] LABS: INR 2.4 (0.9-1.1); Prothrombin Time 22.4 Seconds (9.0-12.0)
[2020-10-12 07:22] LABS: BUN Creatinine Ratio 32.9 (10-20); Calcium 9.1 mg/dl (8.5-10.1); Est GFR (African American) 39.8; Est GFR (Non-African American) 34.4; Potassium 4.8 mmol/L (3.5-5.1)
[2020-10-12] MEDS: METOPROLOL SUCC 50MG EXT REL TAB PO SCH ×2 (08:14→19:25)
[2020-10-12] MEDS: UMECLIDINIUM/VILANTEROL 62.5/25MCG 7 PUFFS/INHALER INH SCH (08:14)
[2020-10-12] MEDS: FLUTICASONE FUROATE 100MCG 14 PUFFS/INHALER INH SCH (08:15)
[2020-10-12] MEDS: LORazepam 0.5 MG TAB PO PRN ×2 (08:16→19:20)
[2020-10-12] MEDS: LACTULOSE SYRUP 30 GM/45 ML UDP PO SCH ×2 (08:16→08:37)
[2020-10-12] MEDS: LIDOCAINE 5% 1 PATCH TD SCH (08:18)
[2020-10-12] MEDS: ASPIRIN 81 MG ECTAB PO SCH (08:20)
[2020-10-12] MEDS: NICOTINE 21 MG/24 HR TDSY TD SCH (08:20)
[2020-10-12] MEDS: CHOLECALCIFEROL 1,000 UNITS 25 MCG TAB PO SCH (08:20)
[2020-10-12] MEDS: INSULIN GLARGINE SOLOSTAR 100 UNITS/ML 3 ML PEN SQ SCH ×2 (08:37→21:00)
[2020-10-12] MEDS: INSULIN ASPART 100 UNITS/ML 3 ML PEN SC SCH ×4 (08:38→21:00)
--- NOTE | 2020-10-12 08:40 | Psychiatric Consultation ---
Date of Consultation October 12, 2020 Impression / Recommendations Impression Dr. Radha Reaves was directly involved in review and discussion of the patient's case and participated in medical decision making regarding treatment recommendations. RECOMMENDATIONS: 10/12/20 - Psychiatric consultation requested to evaluate the patient for possible medication recommendations related to her lethargy on presentation, desiring to reduce the impact of medications with potential for additional sedation. - Although patient was not able to participate in interview on 10/11 - initial recommendations were provided by our team: it was felt that it was unlikely that the patient's sedation was directly related to her psychiatric medications, given that she has reportedly been on her regimen for >1 year. Recommended holding reduced dose of Thorazine last evening, with consideration to also taper/hold Geodon if necessary if sedation was not improving. - Pt's participation in interview remains somewhat limited today, but she was more alert. Agree with recommendations previously provided. Could resume lower dose of 50mg Thorazine, but would continue to hold dose if any sedation. At this time, would continue Geodon 20mg BID with meals as long as level of se dation continues to improve. - We were informed it is possible for the patient to be seen by psychiatric providers once she returns to [facility], reportedly already on a list - it could be discussed at that time, when the patient is medically stabilized, whether or not it is necessary to resume patient's previous psychotropic medication regimen. - Pt is denying any significant mood or anxiety concerns. She denies safety concerns and adamantly denies SI. No indication for inpatient psychiatric treatment at this time. Appreciate the opportunity to participate in the care of this patient. Please reach out to our service with any additional questions or updates. Psych History Identifying Data 60-year-old female admitted medically on 10/07/20 after presenting to the ED with lethargy, SOB, and hypoxia. Psychiatric consultation was requested by hospitalist team due to request for assistance with reducing the impact of sedating medications in the setting of reported diagnosis of bipolar disorder. Pt unable to participate in interview until today; however, preliminary recommendations were offered on 10/10 and 10/11. Chief Complaint "Not good, I'm in pain." History of Present Illness Zahida Garay is a 60-year-old female admitted medically on 10/07/20 after presenting to the ED with lethargy, SOB, and hypoxia as observed at her nursing facility. PMH includes COPD, atrial fibrillation, anemia, CKD, HTN, , recent stroke and recent COVID-19 infection. Pt was hospitalized at [facility] from 08/15/20 - 08/30/20, and discharged back to [facility]. Psychiatric consultation was requested this admission by our hospitalist team due to reported diagnosis of bipolar disorder. There is concern for encephalopathy and excessive sedation - requesting recommendations regarding medication adjustments to minimize s edation. Preliminary recommendations were offered 10/10 and 10/11. Pt was too sedated to participate in productive interview. Pt was somewhat more alert this morning, but interview is still limited due to level of fatigue. Pt believes she is in the hospital for "pneumonia" and is still complaining of "it feels like my lungs are collapsing." The patient seemed surprised to hear of the more recent concern for excessive sedation and shortness of breath. Pt states, somewhat irritably, "you can't blame me for being tired, I'm sick." We discussed the importance of rest, but also reviewed that excessive sedation can be a large concern. This provider reviewed the previous psychiatric recommendations that had been made, regarding reducing her dose of Thorazine and holding last evening's dose. Pt seems somewhat upset to hear this, and did state "get me the hell out of here", but calmed herself almost immediately. The provider attempted again to review that medications were being adjusted, likely only temporarily, until she stabilized medically. Pt then states, "just give me some time, an hour, I'll be better then." This provider offered reassurance, that sedation is not abnormal, but that we want to do our best to help her to feel better. Pt denied any significant concerns related to her mood or anxiety prior to her admission. She denies A/V hallucinations, and does not verbalize any delusional thinking. She denied SI/SIB and other acute safety concerns. Pt denied other needs or concerns at this time and was reassured that our service is available should she have any questions or other needs. Past Psychiatric History Current Psychiatric Diagnosis: reported dx of bipolar disorder; history of anxiety Outpatient Services: Able to be seen by psychiatric prescribers at [facility] Allergies Allergy/AdvReac Type Severity Reaction Status Date / Time shellfish derived Allergy Unknown Unknown Verified 10/07/20 15:51 Home Medications Medication Instructions Recorded Confirmed Type cholecalciferol (vitamin D3) 50 50 mcg PO QAM 08/03/20 10/07/20 History mcg (2,000 unit) capsule ferrous fumarate 325 mg (106 mg 325 mg PO BID 08/03/20 10/07/20 History iron) tablet lidocaine 5 % topical patch 1 patch TOPICAL DAILY 08/03/20 10/07/20 History magnesium hydroxide 400 mg/5 mL 30 ml PO DIRECTED PRN 08/03/20 10/07/20 Histo ry oral suspension oxycodone 5 mg tablet 5 mg PO Q6H PRN 08/03/20 10/07/20 History sodium bicarbonate 650 mg tablet 650 mg PO WM 08/03/20 10/07/20 History tizanidine 2 mg capsule 2 mg PO Q8H PRN 08/03/20 10/07/20 History ziprasidone HCl 20 mg capsule 20 mg PO BID 08/03/20 10/07/20 History insulin aspart U-100 [Novolog 7 unit SUBCUT BID 08/18/20 10/07/20 History U-100 Insulin aspart] acetaminophen 650 mg PO Q6H PRN MDD 3 GMS 10/07/20 10/07/20 History APAP/24 HOURS aspirin [Aspirin Low Dose] 81 mg PO QAM 10/07/20 10/07/20 History bisacodyl [Dulcolax (bisacodyl)] 10 mg CA DIRECTED PRN 10/07/20 10/07/20 History bumetanide [Bumex] 2 mg PO QAM 10/07/20 10/07/20 History chlorpromazine 150 mg PO HS 10/07/20 10/07/20 History eqmtlbgntxs-fwutenvvc-vfckdukj 1 inh INHALATION DAILY 10/07/20 10/07/20 History [Trelegy Ellipta] insulin glargine [Lantus Solostar 20 unit SUBCUT QAM 10/07/20 10/07/20 History U-100 Insulin] ipratropium-albuterol [Combivent 1 puff INHALATION Q6H PRN 10/07/20 10/07/20 History Respimat] lorazepam 1 mg PO BID PRN 10/07/20 10/07/20 History metoprolol succinate 50 mg PO BID 10/07/20 10/07/20 History nicotine 1 patch TRANSDERMAL DAILY 10/07/20 10/07/20 History nutritional supplements See Rx Instructions .ROUTE .COMPLEX 10/07/20 10/07/20 History [NovaSource Renal] sodium phosphates [Fleet Enema] 118 ml CA DIRECTED PRN 10/07/20 10/07/20 History trazodone 25 mg PO HS 10/07/20 10/07/20 History warfarin 5 mg PO 5XWK 10/07/20 10/07/20 History warfarin 7.5 mg PO 2XWK 10/07/20 10/07/20 History Family History Patient unable to provide information on family history of mental health conditions at this time. Substance Abuse History Based on patient's chart, there is a reported history of cocaine use/abuse - patient unable to provide more recent information regarding use of illicit substances, tobacco, or alcohol. Personal History Living Arrangements: Assisted ([facility]) Employment Status: Disabled Patient History Medical History Acute alteration in mental status Amputation of left great toe Anxiety Atrial fibrillation and flutter Bipolar disorder delivery delivered CKD (chronic kidney disease), stage III CVA (cerebral vascular accident) Heart failure History of COVID-19 Hypoglycemia Hypoxemia IDDM (insulin dependent diabetes mellitus) Insomnia Mitral valve regurgitation Nicotine dependence Pneumonia due to 2019 novel coronavirus Pulmonary hypertension Severe protein-calorie malnutrition Stroke Surgical History Hx of right BKA Social History Smoking Status: Former smoker Tobacco Type: Cigarettes packs per day: 2; Years Smoked: 40; Second Hand Exposure: No; Do You Dip or Chew Tobacco: No; Tobacco Cessation Education Requested by Patient: No Hx Alcohol Use: No Hx Substance Use: Yes Non-Prescribed Medications: Crack / Cocaine Last Used Substance: Unknown Last Used Substance Other:: 17 years ago Preferred Language: Romansh Communication Ability: Effective Decatizer Required: No marital status: Unknown Current Living Situation: Alone current occupational status: unemployed and disabled 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 Pt is appropriately dressed for clinical setting, wearing a hospital gown. Recently bathed with assistance from nurse. Long romero hair appears clean. Eye Contact: + fair eye contact (pt does close her eyes briefly, as if falling asleep) Motor Behavior: no abnormal motor movements (observed while laying in bed) Speech: normal rate/rhythm/volume of speech Affect: + flat affect appearing fatigued; irritable when this provider commented about her level of fatigue Mood: no depressed mood and no anxious mood Thought Process: goal directed thought process and + concrete thought process Thought Content: reality based without delusions; no hopelessness Suicidal Thoughts: denies suicidal thoughts and denies suicidal intent Homicidal Thoughts: denies homicidal thoughts Cognition: attention grossly intact and language grossly intact Insight: + limited insight (primarily related to fatigue, limited interview) Judgement: + fair judgement Vital Signs (Past 24 Hours): Last Vital Signs Temp 36.8 C 10/12/20 07:08 Pulse 87 10/12/20 07:21 Resp 18 10/12/20 07:08 BP 157/108 H 10/12/20 07:08 Pulse Ox 97 10/12/20 07:08 Review of Systems Constitutional: report vague complaints of "in pain", and "not good" but does not elaborate with questioning Cardiovascular: denied Respiratory: reports "my lungs are collapsing" Gastrointestinal: denied Neurological: denied Psychiatric: denies symptoms other than stated above Total of at least 10 systems reviewed, pertinent positives as above and in HPI. Results & Data (PSY) Medications Administered Acetaminophen (Acetaminophen 325 Mg Tab) 650 mg PO Q4H PRN PRN Reason: Pain or Fever Stop: 11/06/20 20:43 Last Admin: 10/12/20 08:16 Dose: 650 mg Documented by: [id number] Al Hydrox/Mg Hydrox/Simethicone (Aluminum/Magnesium Susp 30 Ml Udc) 15 ml PO Q4H PRN PRN Reason: Dyspepsia Stop: 11/06/20 20:43 Last Admin: 10/08/20 13:46 Dose: 15 ml Documented by: [id number] Aspirin (Aspirin 81 Mg Ectab) 81 mg PO QAM [facility] Stop: 11/07/20 08:59 Last Admin: 10/12/20 08:20 Dose: 81 mg Documented by: [id number] Admin: 10/11/20 07:45 Dose: 81 mg Documented by: [id number] Admin: 10/10/20 09:26 Dose: 81 mg Documented by: [id number] Admin: 10/09/20 08:31 Dose: 81 mg Documented by: [id number] Admin: 10/08/20 09:19 Dose: 81 mg Documented by: [id number] Chlorpromazine HCl (Chlorpromazine Hcl 25 Mg Tab) 50 mg PO HS [facility] Stop: 11/09/20 20:59 Last Admin: 10/10/20 20:01 Dose: 50 mg Documented by: [id number] Fluticasone Furoate (Fluticasone Furoate 100mcg 14 Puffs/Inhaler) 1 puffs INH DAILY [facility] Stop: 11/07/20 08:59 Last Admin: 10/12/20 08:15 Dose: 1 puffs Documented by: [id number] Admin: 10/11/20 07:47 Dose: 1 puffs Documented by: [id number] Admin: 10/10/20 09:23 Dose: 1 puffs Documented by: [id number] Admin: 10/09/20 08:31 Dose: 1 puffs Documented by: [id number] Admin: 10/08/20 09:14 Dose: 1 puffs Documented by: [id number] Ampicillin Sodium/Sulbactam Sodium 3,000 mg/ Sodium Chloride 108 mls @ 200 mls/hr IV Q6H [facility]; Protocol Stop: 10/17/20 13:59 Last Admin: 10/12/20 08:13 Dose: 200 mls/hr Documented by: [id number] Infusion: 10/12/20 02:35 Dose: 0 mls/hr Documented by: [id number] Admin: 10/12/20 01:59 Dose: 200 mls/hr Documented by: [id number] Infusion: 10/11/20 21:20 Dose: 0 mls/hr Documented by: [id number] Admin: 10/11/20 20:46 Dose: 200 mls/hr Documented by: [id number] Infusion: 10/11/20 13:38 Dose: 0 mls/hr Documented by: [id number] Admin: 10/11/20 12:50 Dose: 200 mls/hr Documented by: [id number] Infusion: 10/11/20 09:17 Dose: 0 mls/hr Documented by: [id number] Admin: 10/11/20 07:47 Dose: 200 mls/hr Documented by: [id number] Infusion: 10/11/20 02:00 Dose: 0 mls/hr Documented by: [id number] Admin: 10/11/20 01:22 Dose: 200 mls/hr Documented by: [id number] Infusion: 10/10/20 20:40 Dose: 0 mls/hr Documented by: [id number] Admin: 10/10/20 20:03 Dose: 200 mls/hr Documented by: [id number] Infusion: 10/10/20 14:54 Dose: 0 mls/hr Documented by: [id number] Admin: 10/10/20 14:09 Dose: 200 mls/hr Documented by: [id number] Insulin Aspart (Insulin Aspart 100 Units/Ml 3 Ml Pen) 0 units SC ACHS [facility] Stop: 11/06/20 20:59 Last Admin: 10/12/20 08:38 Dose: 12 units Documented by: [id number] Cosigned by: [id number] Admin: 10/11/20 21:17 Dose: 4 units Documented by: [id number] Cosigned by: [id number] Admin: 10/11/20 17:08 Dose: 17 units Documented by: [id number] Cosigned by: [id number] Admin: 10/11/20 12:06 Dose: 12 units Documented by: [id number] Cosigned by: [id number] Admin: 10/11/20 09:13 Dose: 8 units Documented by: [id number] Cosigned by: [id number] Admin: 10/10/20 21:54 Dose: Not Given Documented by: [id number] Cosigned by: [id number] Admin: 10/10/20 16:41 Dose: 13 units Documented by: [id number] Cosigned by: [id number] Admin: 10/10/20 14:04 Dose: 177 units Documented by: [id number] Cosigned by: [id number] Admin: 10/10/20 09:20 Dose: 12 units Documented by: [id number] Cosigned by: [id number] Admin: 10/09/20 20:54 Dose: Not Given Documented by: [id number] Admin: 10/09/20 16:41 Dose: 13 units Documented by: [id number] Cosigned by: [id number] Admin: 10/09/20 11:44 Dose: 13 units Documented by: [id number] Cosigned by: [id number] Admin: 10/09/20 08:34 Dose: 11 units Documented by: [id number] Cosigned by: [id number] Admin: 10/08/20 22:48 Dose: Not Given Documented by: [id number] Cosigned by: [id number] Admin: 10/08/20 16:44 Dose: 10 units Documented by: [id number] Cosigned by: [id number] Admin: 10/08/20 12:32 Dose: 14 units Documented by: [id number] Cosigned by: [id number] Admin: 10/08/20 09:04 Dose: 14 units Documented by: [id number] Cosigned by: [id number] Admin: 10/07/20 22:14 Dose: 4 units Documented by: [id number] Cosigned by: [id number] Insulin Glargine (Insulin Glargine Solostar 100 Units/Ml 3 Ml Pen) 10 units SQ QAM [facility] Stop: 11/09/20 08:59 Last Admin: 10/12/20 08:37 Dose: 10 units Documented by: [id number] Cosigned by: [id number] Admin: 10/11/20 09:15 Dose: 10 units Documented by: [id number] Cosigned by: [id number] Admin: 10/10/20 09:19 Dose: 10 units Documented by: [id number] Cosigned by: [id number] Lactulose (Lactulose Syrup 30 Gm/45 Ml Udp) 30 gm PO DAILY [facility] Stop: 11/08/20 13:59 Last Admin: 10/12/20 08:37 Dose: Not Given Documented by: [id number] Admin: 10/11/20 07:46 Dose: 30 gm Documented by: [id number] Admin: 10/10/20 09:23 Dose: 30 gm Documented by: [id number] Admin: 10/09/20 14:28 Dose: 30 gm Documented by: [id number] Lidocaine (Lidocaine 5% 1 Patch) 1 patch TD DAILY [facility] Stop: 11/07/20 08:59 Last Admin: 10/12/20 08:18 Dose: 1 patch Documented by: [id number] Admin: 10/11/20 07:46 Dose: 1 patch Documented by: [id number] Admin: 10/10/20 09:26 Dose: 1 patch Documented by: [id number] Admin: 10/09/20 08:47 Dose: 1 patch Documented by: [id number] Admin: 10/08/20 09:16 Dose: Not Given Documented by: [id number] Lorazepam (Lorazepam 0.5 Mg Tab) 0.5 mg PO Q6H PRN PRN Reason: Anxiety Stop: 11/07/20 00:54 Last Admin: 10/12/20 08:16 Dose: 0.5 mg Documented by: [id number] Admin: 10/10/20 17:36 Dose: 0.5 mg Documented by: [id number] Admin: 10/10/20 11:21 Dose: 0.5 mg Documented by: [id number] Admin: 10/09/20 16:48 Dose: 0.5 mg Documented by: [id number] Admin: 10/09/20 08:43 Dose: 0.5 mg Documented by: [id number] Admin: 10/08/20 14:49 Dose: 0.5 mg Documented by: [id number] Magnesium Hydroxide (Magnesium Hydroxide Susp 30 Ml Udc) 30 ml PO Q12H PRN PRN Reason: Constipation Stop: 11/06/20 20:43 Last Admin: 10/09/20 17:36 Dose: 30 ml Documented by: [id number] Admin: 10/08/20 14:49 Dose: 30 ml Documented by: [id number] Metoprolol Succinate (Metoprolol Succ 50mg Ext Rel Tab) 50 mg PO BID [facility] Stop: 11/06/20 20:59 Last Admin: 10/12/20 08:14 Dose: 50 mg Documented by: [id number] Admin: 10/11/20 21:18 Dose: 50 mg Documented by: [id number] Admin: 10/11/20 07:44 Dose: 50 mg Documented by: [id number] Admin: 10/10/20 20:02 Dose: 50 mg Documented by: [id number] Admin: 10/10/20 09:27 Dose: 50 mg Documented by: [id number] Admin: 10/09/20 19:20 Dose: 50 mg Documented by: [id number] Admin: 10/09/20 08:35 Dose: 50 mg Documented by: [id number] Admin: 10/08/20 20:47 Dose: 50 mg Documented by: [id number] Admin: 10/08/20 09:17 Dose: 50 mg Documented by: [id number] Admin: 10/07/20 22:20 Dose: 50 mg Documented by: [id number] Miscellaneous (Remove Nicoderm Patch) 1 ea N/A DAILY@0859 [facility] Stop: 11/07/20 08:58 Last Admin: 10/12/20 08:15 Dose: 1 ea Documented by: [id number] Admin: 10/11/20 07:48 Dose: 1 ea Documented by: [id number] Admin: 10/10/20 09:21 Dose: 1 ea Documented by: [id number] Admin: 10/09/20 08:28 Dose: 1 ea Documented by: [id number] Admin: 10/08/20 09:13 Dose: 1 ea Documented by: [id number] Miscellaneous (Remove Lidoderm Patch) 1 ea N/A DAILY@2100 [facility] Stop: 11/06/20 20:59 Last Admin: 10/11/20 20:48 Dose: 1 ea Documented by: [id number] Admin: 10/10/20 20:07 Dose: 1 ea Documented by: [id number] Admin: 10/09/20 19:21 Dose: 1 ea Documented by: [id number] Admin: 10/08/20 20:45 Dose: Not Given Documented by: [id number] Admin: 10/07/20 22:21 Dose: 1 ea Documented by: [id number] Nicotine (Nicotine 21 Mg/24 Hr Tdsy) 21 mg TD DAILY [facility] Stop: 11/07/20 08:59 Last Admin: 10/12/20 08:20 Dose: 21 mg Documented by: [id number] Admin: 10/11/20 07:46 Dose: 21 mg Documented by: [id number] Admin: 10/10/20 09:21 Dose: 21 mg Documented by: [id number] Admin: 10/09/20 08:30 Dose: 21 mg Documented by: [id number] Admin: 10/08/20 09:15 Dose: 21 mg Documented by: [id number] Ondansetron HCl (Ondansetron Inj 2 Mg/Ml 2 Ml Vial) 4 mg IV Q4H PRN PRN Reason: Nausea Stop: 11/07/20 13:39 Last Admin: 10/08/20 14:49 Dose: 4 mg Documented by: [id number] Oxycodone HCl (Oxycodone Hcl Ir 5 Mg Tab (Immediate Release)) 5 mg PO Q6H PRN PRN Reason: Pain Stop: 10/21/20 20:51 Last Admin: 10/12/20 08:16 Dose: 5 mg Documented by: [id number] Admin: 10/12/20 01:59 Dose: 5 mg Documented by: [id number] Admin: 10/11/20 07:56 Dose: 5 mg Documented by: [id number] Admin: 10/11/20 01:03 Dose: 5 mg Documented by: [id number] Admin: 10/10/20 17:36 Dose: 5 mg Documented by: [id number] Admin: 10/10/20 11:21 Dose: 5 mg Documented by: [id number] Admin: 10/09/20 16:47 Dose: 5 mg Documented by: [id number] Admin: 10/09/20 08:46 Dose: 5 mg Documented by: [id number] Admin: 10/08/20 12:16 Dose: 5 mg Documented by: [id number] Polyethylene Glycol (Polyethylene (Miralax) 17 Gm Pack) 17 gm PO DAILY PRN PRN Reason: Constipation Stop: 11/06/20 20:43 Last Admin: 10/09/20 17:35 Dose: 17 gm Documented by: [id number] Umeclidinium/Vilanterol (Umeclidinium/Vilanterol 62.5/25mcg 7 Puffs/Inhaler) 1 puffs INH DAILY [facility] Stop: 11/07/20 08:59 Last Admin: 10/12/20 08:14 Dose: 1 puffs Documented by: [id number] Admin: 10/11/20 07:47 Dose: 1 puffs Documented by: [id number] Admin: 10/10/20 09:23 Dose: 1 puffs Documented by: [id number] Admin: 10/09/20 08:31 Dose: 1 puffs Documented by: [id number] Admin: 10/08/20 09:14 Dose: 1 puffs Documented by: [id number] Vitamin D (Cholecalciferol 1,000 Units 25 Mcg Tab) 2,000 units PO QAM [facility] Stop: 11/07/20 08:59 Last Admin: 10/12/20 08:20 Dose: 2,000 units Documented by: [id number] Admin: 10/11/20 07:45 Dose: 2,000 units Documented by: [id number] Admin: 10/10/20 09:26 Dose: 2,000 units Documented by: [id number] Admin: 10/09/20 08:30 Dose: 2,000 units Documented by: [id number] Admin: 10/08/20 09:18 Dose: 2,000 units Documented by: [id number] Ziprasidone (Ziprasidone Hcl 20 Mg Cap) 20 mg PO BIDM [facility] Stop: 11/09/20 16:59 Last Admin: 10/12/20 08:14 Dose: 20 mg Documented by: [id number] Admin: 10/11/20 17:10 Dose: 20 mg Documented by: [id number] Admin: 10/11/20 07:44 Dose: 20 mg Documented by: [id number] Admin: 10/10/20 16:42 Dose: 20 mg Documented by: [id number] Coding Level of Care Code 22855 [facility] Lvl 1
[2020-10-12] MEDS ORDERED: VANCOMYCIN CONSULT ACTIVE PRN (08:49)
--- NOTE | 2020-10-12 09:41 | Pharmacy Report ---
Pharmacy Abx Initial Consult - Date of Service October 12, 2020 - Pharmacy Dosing Scope Date of Consult: 10/12/20 Consultation requested by: Dr. Dominguez Pharmacy is consulted to initiate vancomycin IV dosing therapy, order appropriate labs and adjust drug dose/frequency. - Subjective The patient is a 60 year old F admitted on 10/07/20 19:47 with altered mental status. There is a concern for aspiration pneumonia with a positive MRSA nasal swab. - Objective Height: 5 ft 10 in Weight: 82.3 kg Vital Signs (Past 12hrs): Vital Signs Temp Pulse Pulse Resp BP BP Pulse Ox 10/12/20 07:21 87 10/12/20 07:08 36.8 C 88 18 157/108 H 97 10/12/20 04:12 146/92 H 10/12/20 03:47 36.7 C 86 20 160/111 H 93 10/11/20 23:24 37.0 C 86 19 154/90 H 95 10/11/20 23:12 37.1 C 84 20 152/95 H 97 10/11/20 23:03 143/89 H 10/11/20 22:20 84 Lab Results (24hrs): Laboratory Tests (24 Hours) 10/12/20 10/12/20 06:14 06:14 WBC 7.22 Creatinine 1.63 H Est Cr Clr Drug Dosing 44.0 Micro Results: 10/07/20 14:49 Urine Culture - Final Urine,Straight Cath No growth - less than 1,000 colonies/mL. - Risk Factors for Resistance * Resident in a fpc or extended-care facility * Hospitalization for 48 hours or more within the past 90 days * Antimicrobial use within the last 90 days (Zithromax, Augmentin) - Assessment & Plan Assessment 60 year old F admitted with altered mental status with concern for aspiration pneumonia in setting of + nasal MRSA swab. Patient has R BKA. Plan vancomycin for treatment of pneumonia Vancomycin IV * Estimated PK Parameters: Vd 0.7 L/kg, Reilly 0.004 hr-1, t1/2 ~18 hr * Loading dose: 1750 mg (20 mg/kg) * Maintenance dose: 1250 mg IV (15 mg/kg) every 24 hours * Goal trough level for pulmonary indication : 15 to 20 mcg/mL * Trough level ordered for 10/14/20 prior to third dose (prior to steady state but want to ensure no accumulation) * Patient has R BKA. Utilized corrected IBW (subtracted 6%) for estimated creatinine clearance of 38 mL/min. Does not alter suspected kinetics too much but will monitor closer. Pharmacy will continue to follow and will adjust dose/frequency as necessary. Thank you.
[2020-10-12] MEDS ORDERED: VANCOMYCIN HCL 1,750 MG in SODIUM CHLORIDE 0.9% 500 ML IV ONE (10:00)
[2020-10-12] MEDS ORDERED: ALBUT/IPRATROP 3MG/0.5MG NEB 3 ML VIAL NEB STA (12:41)
--- NOTE | 2020-10-12 12:45 | Hospitalist Progress Note ---
Date of Service October 12, 2020 Assessment & Plan (1) Acute respiratory failure with hypoxia and hypercapnia: multifactorial - suspected pneumonia; acute/chronic right-sided CHF & acute/chronic diastolic CHF; COPD exacerbation. treat components - see below. (2) Bilateral pneumonia: suspected. MRSA+ thus will cover for such with IV vanco. recent hospital stays - thus, covering gram negatives with IV zosyn. defer on atypical coverage for now. (3) Acute on chronic right-sided congestive heart failure: echo 08/2020 with RV systolic dysfunction and severe pulm HTN. significant valvular disease as well. continue diuresis - give additional bumex 2mg IV x 1 now. (4) COPD (chronic obstructive pulmonary disease): with exacerbation. start solumedrol 40mg IV BID place on nebs/inhalers. BIPAP and/or HFNC if any distress. (5) Acute on chronic diastolic (congestive) heart failure: diurese - see above (6) Encephalopathy: ongoing. uncertain of baseline mental status. has h/o bipolar and prior stroke. treat elevated ammonia levels with lactulose. suspect right heart failure causing hepatic congestion. (7) History of COVID-19: Diagnosed with COVID-19 08/15/20. Repeat PCR COVID testing on 10/07 was positive. Negative influenza A/B and RSV testing on admission. However, cleared isolation precautions. Has b/l pneumonia but I do not feel this is COVID-related. (8) IDDM (insulin dependent diabetes mellitus): A1c was 7.2% in 08/2020. Will have uncontrolled sugars with the steroids. Increase lantus to BID dosing. Increase novolog correction & carb coverage. Tighten goal range. Follow closely. (9) Anemia: trend H/H (10) Atrial fibrillation and flutter: Supratherapeutic INR at admission. Coumadin held. Received vitamin K. INR just over 2 today. INR again in am. Anticipate resuming coumadin tomorrow. Cont metoprolol xl BID (11) Bipolar disorder: Appreciate psych recommendations (12) CKD (chronic kidney disease), stage III: Baseline Cr. ~1.5 - 2.0. Cr 1.6 today. BMP am. (13) Pulmonary hypertension: severe on echo 08/2020 cor pulmonale as well (14) DVT prophylaxis: coumadin updated daughter extensively today questions answered Admission and Anticipated Discharge Date Admission Date: October 07, 2020 Results & Data Results & Data ([facility]) Vital Signs (Past 12 Hours) Vital Signs Temp Pulse Pulse Resp BP Pulse Ox 10/12/20 12:12 36.5 C 93 H 22 156/99 H 96 10/12/20 07:21 87 10/12/20 07:08 36.8 C 88 18 157/108 H 97 10/12/20 04:12 146/92 H 10/12/20 03:47 36.7 C 86 20 160/111 H 93 PG Care Time/CCT Total # of Minutes Spent Total Time Spent with Patient: Total time spent is greater than 50% in coordination of care (as documented) at patient's floor/unit and/or counseling patient: Coding Level of Care Code 89230 Subseq Hosp Care Lvl 3 Diagnoses Acute respiratory failure with hypoxia and hypercapnia J96.01; J96.02 Bilateral pneumonia J18.9 Pneumonia type: due to unspecified organism Lung location: unspecified part of lung Acute on chronic right-sided congestive heart failure I50.813 COPD (chronic obstructive pulmonary disease) J44.1 COPD type: COPD with acute exacerbation Acute on chronic diastolic (congestive) heart failure I50.33 Encephalopathy G93.40 History of COVID-19 Z86.16 IDDM (insulin dependent diabetes mellitus) Anemia D64.9 Anemia type: unspecified type Atrial fibrillation and flutter I48.91; I48.92 Bipolar disorder F31.9 Active/Remission status: currently active Psychotic features: without psychotic features CKD (chronic kidney disease), stage III N18.30 Chronic kidney disease stage 3 subtype: unspecified whether 3a or 3b Pulmonary hypertension I27.20 DVT prophylaxis Z29.9 (1) Anemia Anemia type: unspecified type Qualified Code(s): D64.9 - Anemia, unspecified (2) Bipolar disorder Active/Remission status: currently active Psychotic features: without psychotic features (3) CKD (chronic kidney disease), stage III Chronic kidney disease stage 3 subtype: unspecified whether 3a or 3b Qualified Code(s): N18.30 - Chronic kidney disease, stage 3 unspecified (4) COPD (chronic obstructive pulmonary disease) COPD type: COPD with acute exacerbation Qualified Code(s): J44.1 - Chronic obstructive pulmonary disease with (acute) exacerbation (5) Bilateral pneumonia Pneumonia type: due to unspecified organism Lung location: unspecified part of lung Qualified Code(s): J18.9 - Pneumonia, unspecified organism
[2020-10-12] MEDS ORDERED: PIPERACILL/TAZOBAC CONSULT ACTIVE PRN (13:13)
[2020-10-12] MEDS ORDERED: BUMETANIDE 1 MG in SYRINGE 0 ML IV ONE ×2 (13:15→14:30)
--- NOTE | 2020-10-12 13:17 | XRay Report ---
XR chest 1V portable CLINICAL HISTORY: Respiratory failure COMPARISON STUDY: 10/07/2020 FINDINGS: The cardiac and mediastinal contours remain stable. There are extensive bilateral pulmonary airspace opacities. There is small bilateral pleural effusions.[ IMPRESSION: Persistent bilateral pleural effusions and relatively diffuse bilateral pulmonary airspac e opacities. ACT 112: Negative or not required by law. Electronically signed by: Lowell Estrada M.D. 10/12/2020 1:16 PM
[2020-10-12 13:23] LABS: Allen Test Pos (Pos); Base Excess ABG 2.2 mEq/L (-9-1.8); HCO3 ABG 28 mmol/L (19-24); Oxygen Saturation ABG 96.4 % (90-95); PCO2 ABG 50 mmHg (35-46); PO2 ABG 87 mmHg (80-95); pH ABG 7.37 (7.35-7.45)
[2020-10-12] MEDS ORDERED: PIPERACILLIN/TAZOBACTAM 3.375 GM in DEXTROSE 5% 100 ML IV ONE (13:45)
[2020-10-12] MEDS: methylPREDNISolone 40 MG in SYRINGE 0 ML IV SCH (13:59)
[2020-10-12] MEDS: PIPERACILLIN/TAZOBACTAM 3.375 GM in DEXTROSE 5% 100 ML IV SCH (19:20)
[2020-10-12] MEDS ORDERED: METOPROLOL TARTRATE 1 MG/ML VIAL IV STA (22:59)
[2020-10-13] MEDS: methylPREDNISolone 40 MG in SYRINGE 0 ML IV SCH ×2 (02:17→14:53)
[2020-10-13] MEDS: PIPERACILLIN/TAZOBACTAM 3.375 GM in DEXTROSE 5% 100 ML IV SCH ×3 (02:22→18:08)
[2020-10-13] MEDS ORDERED: hydrALAZINE HCL 20 MG/ML VIAL IV STA (05:03)
[2020-10-13 07:25] LABS: INR 1.5 (0.9-1.1)
[2020-10-13 07:42] LABS: Creatinine Clr Calc Pharmacy 44.4 ml/min; Est GFR (African American) 40.1; Est GFR (Non-African American) 34.6
[2020-10-13] MEDS: CHOLECALCIFEROL 1,000 UNITS 25 MCG TAB PO SCH (08:02)
[2020-10-13] MEDS: ASPIRIN 81 MG ECTAB PO SCH (08:02)
[2020-10-13] MEDS: LIDOCAINE 5% 1 PATCH TD SCH (08:03)
[2020-10-13] MEDS: UMECLIDINIUM/VILANTEROL 62.5/25MCG 7 PUFFS/INHALER INH SCH (08:05)
[2020-10-13] MEDS: FLUTICASONE FUROATE 100MCG 14 PUFFS/INHALER INH SCH (08:05)
[2020-10-13] MEDS: LACTULOSE SYRUP 30 GM/45 ML UDP PO SCH (08:06)
[2020-10-13] MEDS: NICOTINE 21 MG/24 HR TDSY TD SCH (08:08)
[2020-10-13] MEDS: VANCOMYCIN HCL 1,250 MG in SODIUM CHLORIDE 0.9% 250 ML IV SCH (08:22)
[2020-10-13] MEDS: METOPROLOL SUCC 50MG EXT REL TAB PO SCH ×2 (08:22→21:28)
[2020-10-13] MEDS: INSULIN GLARGINE SOLOSTAR 100 UNITS/ML 3 ML PEN SQ SCH ×2 (08:30→23:01)
[2020-10-13] MEDS: INSULIN ASPART 100 UNITS/ML 3 ML PEN SC SCH ×4 (08:30→21:29)
[2020-10-13] MEDS ORDERED: INSULIN GLARGINE SOLOSTAR 100 UNITS/ML 3 ML PEN SQ SCH ×2 (09:15→21:00)
[2020-10-13] MEDS ORDERED: BUMETANIDE 2 MG in SYRINGE 0 ML IV ONE (09:30)
[2020-10-13 09:40] LABS: BUN Creatinine Ratio 35.9 (10-20); Calcium 8.7 mg/dl (8.5-10.1); Creatinine Clr Calc Pharmacy 43.6 ml/min; Est GFR (African American) 39.3; Est GFR (Non-African American) 33.9; Potassium 4.8 mmol/L (3.5-5.1)
[2020-10-13] MEDS: oxyCODONE HCL IR 5 MG TAB (IMMEDIATE RELEASE) PO PRN ×3 (10:43→21:28)
[2020-10-13] MEDS ORDERED: WARFARIN SOD 7.5 MG TAB PO ONE (16:30)
[2020-10-13] MEDS ORDERED: BUMETANIDE 1 MG in SYRINGE 0 ML IV ONE (16:30)
[2020-10-13] MEDS ORDERED: FAMOTIDINE 40 MG TABLET PO ONE (16:30)
[2020-10-13] MEDS: PANTOprazole 40 MG TAB PO SCH (17:05)
[2020-10-13] MEDS: LORazepam 0.5 MG TAB PO PRN (20:04)
--- NOTE | 2020-10-13 20:05 | Hospitalist Progress Note ---
Date of Service October 13, 2020 Assessment & Plan (1) Acute respiratory failure with hypoxia and hypercapnia: multifactorial - suspected pneumonia; acute/chronic right-sided CHF & acute/chronic diastolic CHF; COPD exacerbation. all improved. (2) Bilateral pneumonia: improving. MRSA+ thus continue with IV vanco. recent hospital stays - thus, covering gram negatives with IV zosyn. defer on atypical coverage for now. (3) Acute on chronic right-sided congestive heart failure: echo 08/2020 with RV systolic dysfunction and severe pulm HTN. significant valvular disease as well. continue diuresis. labs in am. overall improved volume status today. (4) COPD (chronic obstructive pulmonary disease): with exacerbation. improved. stop solumedrol 40mg IV BID convert to PO prednisone 40mg daily starting 10/14 (5) Acute on chronic diastolic (congestive) heart failure: diurese - see above improving (6) Encephalopathy: improved. uncertain of baseline mental status. has h/o bipolar and prior stroke. cont to treat elevated ammonia levels with lactulose. suspect right heart failure causing hepatic congestion. hypercarbia also likely contributed to altered MS. (7) History of COVID-19: Diagnosed with COVID-19 08/15/20. Repeat PCR COVID testing on 10/07 was positive. Negative influenza A/B and RSV testing on admission. However, cleared isolation precautions. Has b/l pneumonia but I do not feel this is COVID-related. (8) IDDM (insulin dependent diabetes mellitus): A1c was 7.2% in 08/2020. uncontrolled due to steroids. increase dose of BID lantus. increase novolog correction & carb coverage. Follow closely. (9) Anemia: trend H/H (10) Atrial fibrillation and flutter: Supratherapeutic INR at admission. Coumadin held. Received vitamin K. now INR <2. resume coumadin - 7.5mg today, then INR again in am. Cont metoprolol xl BID (11) Bipolar disorder: Appreciate psych recommendations resume thorazine at HS now that mental status is improved (12) CKD (chronic kidney disease), stage III: Baseline Cr. ~1.5 - 2.0. Cr 1.6 today. BMP am. (13) Pulmonary hypertension: severe on echo 08/2020 cor pulmonale as well (14) DVT prophylaxis: coumadin updated daughter extensively yesterday questions answered Admission and Anticipated Discharge Date Admission Date: October 07, 2020 Subjective tele wnl overnight patient feeling better today - breathing improved, less labored, no further hem optysis, cough improved asks for dosing interval to be changed on oxycodone for chronic back pain lastly, she said "Im ready to leave now - I want to go home" Review of Systems Constitutional: no fever, no chills and no anorexia Respiratory: + cough and + wheezing; no hemoptysis Cardiovascular: no chest pain and no orthopnea Gastrointestinal: + abdominal pain (upper abdomen - only w/ palpation ) Physical Exam Constitutional: + altered mental status; no acute distress looks much older than stated age ENMT: external ear and nose normal, oropharynx normal Respiratory: no respiratory distress Auscultation: + diminished lung sounds (bases), + crackles (bases) and + wheezes (but markedly improved today) Cardiovascular: Rate/Rhythm: regular rate and regular rhythm Heart Sounds: normal S1, normal S2 and + murmur (2-3/6 holosystolic LLSB) Vessels: + JVD Extremities: no edema Gastrointestinal (Abdomen): Inspection/Auscultation: normal bowel sounds; abdomen not distended Percussion/Palpation: + abdomen tender (epigastric region ) and abdomen soft; no hepatosplenomegaly Musculoskeletal: right BKA Skin: + pallor Psychiatric: Orientation: alert Results & Data Results & Data ([facility]) Vital Signs (Past 12 Hours) Vital Signs Temp Pulse Pulse Resp BP Pulse Ox 10/13/20 17:48 94 H 10/13/20 15:19 36.5 C 94 H 22 143/83 H 92 10/13/20 11:42 36.4 C L 96 H 20 151/87 H 97 10/13/20 09:46 91 H Laboratory Results Laboratory Results - last 24 hr 10/12/20 10/12/20 10/13/20 20:26 20:26 06:24 PT 15.0 H INR 1.5 H Sodium Potassium Chloride Carbon Dioxide Anion Gap BUN Creatinine Est Cr Clr Drug Dosing Est GFR ( Amer) Est GFR (Non-Af Amer) BUN/Creatinine Ratio Glucose POC Glucose 306 H* 289 H Calcium 10/13/20 10/13/20 10/13/20 06:24 06:29 07:28 PT INR Sodium 133 L Potassium 4.8 Chloride 99 Carbon Dioxide 29 Anion Gap 5.0 BUN 59 H Creatinine 1.62 H 1.65 H Est Cr Clr Drug Dosing 44.4 43.6 Est GFR ( Amer) 40.1 39.3 Est GFR (Non-Af Amer) 34.6 33.9 BUN/Creatinine Ratio 35.9 H Glucose 283 H POC Glucose 378 H* Calcium 8.7 10/13/20 10/13/20 10/13/20 07:32 12:04 12:06 PT INR Sodium Potassium Chloride Carbon Dioxide Anion Gap BUN Creatinine Est Cr Clr Drug Dosing Est GFR ( Amer) Est GFR (Non-Af Amer) BUN/Creatinine Ratio Glucose POC Glucose 369 H* 354 H* 357 H* Calcium 10/13/20 16:28 PT INR Sodium Potassium Chloride Carbon Dioxide Anion Gap BUN Creatinine Est Cr Clr Drug Dosing Est GFR ( Amer) Est GFR (Non-Af Amer) BUN/Creatinine Ratio Glucose POC Glucose 303 H* Calcium PG Care Time/CCT Total # of Minutes Spent Total Time Spent with Patient: Total time spent is greater than 50% in coordination of care (as documented) at patient's floor/unit and/or counseling patient: Coding Level of Care Code 37399 Subseq Hosp Care Lvl 3 Diagnoses Acute respiratory failure with hypoxia and hypercapnia J96.01; J96.02 Bilateral pneumonia J18.9 Lung location: unspecified part of lung Pneumonia type: due to unspecified organism Acute on chronic right-sided congestive heart failure I50.813 COPD (chronic obstructive pulmonary disease) J44.1 COPD type: COPD with acute exacerbation Acute on chronic diastolic (congestive) heart failure I50.33 Encephalopathy G93.40 History of COVID-19 Z86.16 IDDM (insulin dependent diabetes mellitus) Anemia D64.9 Anemia type: unspecified type Atrial fibrillation and flutter I48.91; I48.92 Bipolar disorder F31.9 Active/Remission status: currently active Psychotic features: without psychotic features CKD (chronic kidney disease), stage III N18.30 Chronic kidney disease stage 3 subtype: unspecified whether 3a or 3b Pulmonary hypertension I27.20 DVT prophylaxis Z29.9 (1) CKD (chronic kidney disease), stage III Chronic kidney disease stage 3 subtype: unspecified whether 3a or 3b Qualified Code(s): N18.30 - Chronic kidney disease, stage 3 unspecified (2) Anemia Anemia type: unspecified type Qualified Code(s): D64.9 - Anemia, unspecified (3) Bipolar disorder Active/Remission status: currently active Psychotic features: without psychotic features (4) COPD (chronic obstructive pulmonary disease) COPD type: COPD with acute exacerbation Qualified Code(s): J44.1 - Chronic obstructive pulmonary disease with (acute) exacerbation (5) Bilateral pneumonia Lung location: unspecified part of lung Pneumonia type: due to unspecified organism Qualified Code(s): J18.9 - Pneumonia, unspecified organism
[2020-10-13] MEDS: chlorproMAZINE HCL 25 MG TAB PO SCH (23:00)
[2020-10-14] MEDS: PIPERACILLIN/TAZOBACTAM 3.375 GM in DEXTROSE 5% 100 ML IV SCH ×2 (03:40→10:48)
[2020-10-14] MEDS ORDERED: VANCOMYCIN TROUGH ONE (07:30)
[2020-10-14 07:53] LABS: INR 1.8 (0.9-1.1); Prothrombin Time 17.8 Seconds (9.0-12.0)
[2020-10-14 08:06] LABS: BUN Creatinine Ratio 38.1 (10-20); Calcium 8.8 mg/dl (8.5-10.1); Creatinine Clr Calc Pharmacy 40.2 ml/min; Est GFR (African American) 39.3; Est GFR (Non-African American) 33.9; Potassium 4.7 mmol/L (3.5-5.1)
[2020-10-14] MEDS: predniSONE 20 MG TAB PO SCH (08:20)
[2020-10-14] MEDS: NICOTINE 21 MG/24 HR TDSY TD SCH (08:21)
[2020-10-14] MEDS: PANTOprazole 40 MG TAB PO SCH (08:21)
[2020-10-14] MEDS: LACTULOSE SYRUP 30 GM/45 ML UDP PO SCH (08:23)
[2020-10-14] MEDS: METOPROLOL SUCC 50MG EXT REL TAB PO SCH ×2 (08:23→20:15)
[2020-10-14] MEDS: LIDOCAINE 5% 1 PATCH TD SCH (08:23)
[2020-10-14] MEDS: ASPIRIN 81 MG ECTAB PO SCH (08:24)
[2020-10-14] MEDS: FLUTICASONE FUROATE 100MCG 14 PUFFS/INHALER INH SCH (08:25)
[2020-10-14] MEDS: CHOLECALCIFEROL 1,000 UNITS 25 MCG TAB PO SCH (08:25)
[2020-10-14] MEDS: UMECLIDINIUM/VILANTEROL 62.5/25MCG 7 PUFFS/INHALER INH SCH (08:25)
[2020-10-14] MEDS: INSULIN ASPART 100 UNITS/ML 3 ML PEN SC SCH ×4 (08:40→20:17)
[2020-10-14] MEDS: INSULIN GLARGINE SOLOSTAR 100 UNITS/ML 3 ML PEN SQ SCH ×2 (08:41→20:22)
[2020-10-14] MEDS ORDERED: BUMETANIDE 2 MG in SYRINGE 0 ML IV ONE (08:45)
[2020-10-14] MEDS: VANCOMYCIN HCL 1,250 MG in SODIUM CHLORIDE 0.9% 250 ML IV SCH (09:11)
[2020-10-14] MEDS ORDERED: METOPROLOL SUCC 25MG EXT REL TAB PO ONE (10:00)
--- NOTE | 2020-10-14 11:33 | Pharmacy Report ---
Pharmacy Abx Dose Short Note - Date of Service October 14, 2020 - Assessment & Plan Assessment * 60 year old F on Zosyn and vancomycin for acute respiratory failure with hypoxia and hypercapnia, suspected b/l pneumonia, and COPD exacerbation * Patient improving per provider prog notes * Recent hospitalization therefore Pseudomonas coverage w Zosyn warranted. Positive MRSA nasal swab therefore vancomycin appropriate. May consider changing Zosyn to cefepime to decrease risk of nephrotoxicity - will discuss w Dr. Dominguez * 10/10 Blood cultures 1 of 2 w coag negative Staph - likely contaminant Vancomycin * Target trough 15-20 mcg/mL for MRSA PNA (closer to 20 mcg/mL is reasonable for this indication) * Trough of 20.8 mcg/mL is slightly above goal. Would normally not adjust dose, but as this was drawn prior to steady state, as patient is at risk for nephrotoxicity and has a hx of CKD, will slightly decrease dose for now and re-check a level prior to the 3rd dose of the new regimen Plan * Decrease vancomycin 1000 mg IV q24h, 1st dose 10/15 * Trough 10/17 @ 0930 Pharmacy will continue to follow and will adjust dose/frequency as necessary. Thank you.
[2020-10-14] MEDS: oxyCODONE HCL IR 5 MG TAB (IMMEDIATE RELEASE) PO PRN ×2 (11:49→16:48)
[2020-10-14] MEDS ORDERED: CEFEPIME CONSULT ACTIVE PRN (12:01)
[2020-10-14] MEDS ORDERED: WARFARIN SOD 5 MG TAB PO SCH (16:00)
[2020-10-14] MEDS ORDERED: BUMETANIDE 1 MG in SYRINGE 0 ML IV ONE (19:15)
--- NOTE | 2020-10-14 19:32 | Hospitalist Progress Note ---
Date of Service October 14, 2020 Assessment & Plan (1) Acute respiratory failure with hypoxia and hypercapnia: multifactorial - suspected pneumonia; acute/chronic right-sided CHF & acute/chronic diastolic CHF; COPD exacerbation. all improved. resp status has improved nicely since earlier this week. cont to Rx all components above. (2) Bilateral pneumonia: improving clinically. MRSA+ thus continue with IV vanco. Day #3 of such. recent hospital stays - thus, covering gram negatives with IV zosyn; pharmacy advising changing to cefepime due to LAZ risk. day #4 of unasyn, then zosyn, and now cefepime defer on atypical coverage for now. (3) Acute on chronic right-sided congestive heart failure: echo 08/2020 with RV systolic dysfunction and severe pulm HTN. significant valvular disease as well (MR, TR). continue diuresis. labs in am. overall improved volume status today. suspect we are nearing euvolemia. (4) COPD (chronic obstructive pulmonary disease): with exacerbation. improved. cont steroids - changing to prednisone 40mg daily today. cont inhalers. (5) Acute on chronic diastolic (congestive) heart failure: diurese - see above improving (6) Encephalopathy: improved. uncertain of baseline mental status but daughter reports marked improvement but still a "little confused." has h/o bipolar and prior stroke. cont to treat elevated ammonia levels with lactulose. suspect right heart failure causing hepatic congestion leading to high ammonia. hypercarbia also likely contributed to altered MS. metabolic encephalopathy from pneumonia probably also contributing. (7) History of COVID-19: Diagnosed with COVID-19 08/15/20. Repeat PCR COVID testing on 10/07 was positive. Negative influenza A/B and RSV testing on admission. However, cleared isolation precautions. Has b/l pneumonia but I do not feel this is COVID-related. (8) IDDM (insulin dependent diabetes mellitus): A1c was 7.2% in 08/2020. uncontrolled due to steroids. increase dose of BID lantus once again. increase novolog correction & carb coverage once again. (9) Anemia: trend H/H acceptable / stable (10) Atrial fibrillation and flutter: Supratherapeutic INR at admission. Coumadin held. Received vitamin K. now INR <2. resumed coumadin yesterday. daily INR. Cont metoprolol xl BID (11) Bipolar disorder: Appreciate psych recommendations resumed thorazine at HS resume trazodone tonight as well (12) CKD (chronic kidney disease), stage III: Baseline Cr. ~1.5 - 2.0. Cr again stable today. BMP am. (13) Pulmonary hypertension: severe on echo 08/2020 cor pulmonale as well 2nd COPD?? (14) DVT prophylaxis: coumadin updated daughter extensively Sunday of this week and again today questions answered Admission and Anticipated Discharge Date Admission Date: October 07, 2020 Subjective tele overnight wnl. patient reports feeling better - less cough, less dyspnea. hemoptysis resolved. eating improved. asks that diet consistency (pureed) be changed - doesn't like it. asks for trazodone to be resumed. daughter updated by phone today. no further epistaxis. during the visit I placed patient on 2 L NC O2 (from 10/07) and sats were upper 90s. Review of Systems Constitutional: no fever, no chills and no anorexia Respiratory: + cough, + dyspnea on exertion and + wheezing; no hemoptysis Cardiovascular: no chest pain Gastrointestinal: no abdominal pain and no diarrhea/loose stools Psychiatric: + abnormal sleep pattern Physical Exam Constitutional: + ill appearing and + frail appearing; no acute distress and no altered mental status ENMT: external ear and nose normal, oropharynx normal Nose: no epistaxis Respiratory: no respiratory distress Auscultation: + crackles (bases) and + wheezes (mild endexp ); no diminished lung sounds airation MUCH IMPROVED today Cardiovascular: Rate/Rhythm: regular rate and regular rhythm Heart Sounds: normal S1, normal S2 and + murmur (2-3/6 holosystolic LLSB) Vessels: + JVD Extremities: no edema Gastrointestinal (Abdomen): Inspection/Auscultation: normal bowel sounds; abdomen not distended Percussion/Palpation: + abdomen tender (RUQ - minimal) and abdomen soft; no hepatosplenomegaly Musculoskeletal: RIGHT BKA; left great toe absent Skin: + pallor Neurologic: Motor/Sensory: no asterixis Psychiatric: Orientation: alert, oriented to person and oriented to place; + not oriented to time (2022) Results & Data Results & Data ([facility]) Vital Signs (Past 12 Hours) Vital Signs Temp Pulse Pulse Resp BP BP Pulse Ox 10/14/20 17:21 100 H 10/14/20 15:21 36.5 C 99 H 20 149/91 H 97 10/14/20 11:37 36.7 C 95 H 20 139/79 97 10/14/20 07:34 36.9 C 83 16 146/98 H 100 Laboratory Results Laboratory Results - last 24 hr 10/13/20 10/14/20 10/14/20 20:48 07:10 07:28 PT 17.8 H INR 1.8 H Sodium Potassium Chloride Carbon Dioxide Anion Gap BUN Creatinine Est Cr Clr Drug Dosing Est GFR ( Amer) Est GFR (Non-Af Amer) BUN/Creatinine Ratio Glucose POC Glucose 181 H 144 H Calcium Vancomycin Trough 10/14/20 10/14/20 10/14/20 07:28 07:28 11:30 PT INR Sodium 135 L Potassium 4.7 Chloride 101 Carbon Dioxide 29 Anion Gap 4.0 BUN 63 H Creatinine 1.65 H Est Cr Clr Drug Dosing 40.2 Est GFR ( Amer) 39.3 Est GFR (Non-Af Amer) 33.9 BUN/Creatinine Ratio 38.1 H Glucose 133 H POC Glucose 255 H Calcium 8.8 Vancomycin Trough 20.8 10/14/20 10/14/20 16:32 16:34 PT INR Sodium Potassium Chloride Carbon Dioxide Anion Gap BUN Creatinine Est Cr Clr Drug Dosing Est GFR ( Amer) Est GFR (Non-Af Amer) BUN/Creatinine Ratio Glucose POC Glucose 352 H* 333 H* Calcium Vancomycin Trough PG Care Time/CCT Total # of Minutes Spent Total Time Spent with Patient: Total time spent is greater than 50% in coordination of care (as documented) at patient's floor/unit and/or counseling patient: Coding Level of Care Code 42070 Subseq Hosp Care Lvl 3 Diagnoses Acute respiratory failure with hypoxia and hypercapnia J96.01; J96.02 Bilateral pneumonia J18.9 Lung location: unspecified part of lung Pneumonia type: due to unspecified organism Acute on chronic right-sided congestive heart failure I50.813 COPD (chronic obstructive pulmonary disease) J44.1 COPD type: COPD with acute exacerbation Acute on chronic diastolic (congestive) heart failure I50.33 Encephalopathy G93.40 History of COVID-19 Z86.16 IDDM (insulin dependent diabetes mellitus) Anemia D64.9 Anemia type: unspecified type Atrial fibrillation and flutter I48.91; I48.92 Bipolar disorder F31.9 Active/Remission status: currently active Psychotic features: without psychotic features CKD (chronic kidney disease), stage III N18.30 Chronic kidney disease stage 3 subtype: unspecified whether 3a or 3b Pulmonary hypertension I27.20 DVT prophylaxis Z29.9 (1) CKD (chronic kidney disease), stage III Chronic kidney disease stage 3 subtype: unspecified whether 3a or 3b Qualified Code(s): N18.30 - Chronic kidney disease, stage 3 unspecified (2) Anemia Anemia type: unspecified type Qualified Code(s): D64.9 - Anemia, unspecified (3) Bipolar disorder Active/Remission status: currently active Psychotic features: without psychotic features (4) COPD (chronic obstructive pulmonary disease) COPD type: COPD with acute exacerbation Qualified Code(s): J44.1 - Chronic obstructive pulmonary disease with (acute) exacerbation (5) Bilateral pneumonia Lung location: unspecified part of lung Pneumonia type: due to unspecified organism Qualified Code(s): J18.9 - Pneumonia, unspecified organism
[2020-10-14] MEDS: chlorproMAZINE HCL 25 MG TAB PO SCH (20:14)
[2020-10-14] MEDS: traZODone HCL 50 MG TAB PO PRN (20:15)
[2020-10-14] MEDS: CEFEPIME 2,000 MG in SYRINGE 0 ML IV SCH (20:16)
[2020-10-15 05:47] LABS: INR 3.4 (0.9-1.1); Prothrombin Time 31.4 Seconds (9.0-12.0)
[2020-10-15 06:19] LABS: Creatinine Clr Calc Pharmacy 38.8 ml/min; Est GFR (African American) 37.6; Est GFR (Non-African American) 32.4
[2020-10-15] MEDS: CEFEPIME 2,000 MG in SYRINGE 0 ML IV SCH ×2 (07:41→21:26)
[2020-10-15] MEDS: INSULIN ASPART 100 UNITS/ML 3 ML PEN SC SCH ×4 (07:46→21:35)
[2020-10-15] MEDS: oxyCODONE HCL IR 5 MG TAB (IMMEDIATE RELEASE) PO PRN ×4 (09:13→21:19)
[2020-10-15] MEDS: FLUTICASONE FUROATE 100MCG 14 PUFFS/INHALER INH SCH (09:13)
[2020-10-15] MEDS: UMECLIDINIUM/VILANTEROL 62.5/25MCG 7 PUFFS/INHALER INH SCH (09:14)
[2020-10-15] MEDS ORDERED: IPRATROPIUM BROMIDE/ALBUTEROL respimat INH INH SCH (09:15)
[2020-10-15] MEDS: ASPIRIN 81 MG ECTAB PO SCH (09:15)
[2020-10-15] MEDS: CHOLECALCIFEROL 1,000 UNITS 25 MCG TAB PO SCH (09:16)
[2020-10-15] MEDS: predniSONE 20 MG TAB PO SCH (09:16)
[2020-10-15] MEDS: LACTULOSE SYRUP 30 GM/45 ML UDP PO SCH (09:17)
[2020-10-15] MEDS: PANTOprazole 40 MG TAB PO SCH (09:19)
[2020-10-15] MEDS: METOPROLOL SUCC 50MG EXT REL TAB PO SCH ×2 (09:19→21:19)
[2020-10-15] MEDS: VANCOMYCIN HCL 1,000 MG in SODIUM CHLORIDE 0.9% 250 ML IV SCH (09:22)
[2020-10-15] MEDS: LIDOCAINE 5% 1 PATCH TD SCH (09:22)
[2020-10-15] MEDS: NICOTINE 21 MG/24 HR TDSY TD SCH (09:22)
[2020-10-15] MEDS: INSULIN GLARGINE SOLOSTAR 100 UNITS/ML 3 ML PEN SQ SCH ×2 (09:38→21:35)
[2020-10-15] MEDS: ALBUTEROL HFA 8 GM INHALER INH SCH ×3 (11:26→19:07)
[2020-10-15] MEDS: IPRATROPIUM BROMIDE HFA INHALER INH SCH ×3 (11:27→19:06)
[2020-10-15] MEDS ORDERED: BUMETANIDE 1 MG TAB PO ONE (15:00)
[2020-10-15] MEDS: traZODone HCL 50 MG TAB PO PRN (21:19)
[2020-10-15] MEDS: chlorproMAZINE HCL 25 MG TAB PO SCH (21:19)
[2020-10-16 06:41] LABS: INR 2.8 (0.9-1.1); Prothrombin Time 26.1 Seconds (9.0-12.0)
[2020-10-16 06:59] LABS: BUN Creatinine Ratio 43.1 (10-20); Calcium 8.5 mg/dl (8.5-10.1); Creatinine Clr Calc Pharmacy 39.5 ml/min; Est GFR (African American) 38.4; Est GFR (Non-African American) 33.1; Potassium 4.4 mmol/L (3.5-5.1)
[2020-10-16 07:01] LABS: Creatinine Clr Calc Pharmacy 38.3 ml/min; Est GFR (African American) 37.1
[2020-10-16] MEDS: IPRATROPIUM BROMIDE HFA INHALER INH SCH ×4 (07:21→20:03)
[2020-10-16] MEDS: ALBUTEROL HFA 8 GM INHALER INH SCH ×4 (07:21→20:04)
[2020-10-16] MEDS: oxyCODONE HCL IR 5 MG TAB (IMMEDIATE RELEASE) PO PRN ×3 (07:51→18:23)
[2020-10-16] MEDS: INSULIN ASPART 100 UNITS/ML 3 ML PEN SC SCH ×4 (07:51→20:57)
[2020-10-16] MEDS: CEFEPIME 2,000 MG in SYRINGE 0 ML IV SCH ×2 (08:45→19:45)
[2020-10-16] MEDS: FLUTICASONE FUROATE 100MCG 14 PUFFS/INHALER INH SCH (08:45)
[2020-10-16] MEDS: LACTULOSE SYRUP 30 GM/45 ML UDP PO SCH (08:46)
[2020-10-16] MEDS: CHOLECALCIFEROL 1,000 UNITS 25 MCG TAB PO SCH (08:46)
[2020-10-16] MEDS: PANTOprazole 40 MG TAB PO SCH (08:46)
[2020-10-16] MEDS: ASPIRIN 81 MG ECTAB PO SCH (08:47)
[2020-10-16] MEDS: predniSONE 20 MG TAB PO SCH (08:47)
[2020-10-16] MEDS: METOPROLOL SUCC 50MG EXT REL TAB PO SCH ×2 (08:48→20:53)
[2020-10-16] MEDS: NICOTINE 21 MG/24 HR TDSY TD SCH (08:48)
[2020-10-16] MEDS: INSULIN GLARGINE SOLOSTAR 100 UNITS/ML 3 ML PEN SQ SCH ×2 (08:50→20:57)
[2020-10-16] MEDS: LIDOCAINE 5% 1 PATCH TD SCH ×2 (08:50→12:04)
[2020-10-16] MEDS: UMECLIDINIUM/VILANTEROL 62.5/25MCG 7 PUFFS/INHALER INH SCH (08:50)
[2020-10-16] MEDS ORDERED: BUMETANIDE 1 MG TAB PO SCH (10:30)
[2020-10-16] MEDS: VANCOMYCIN HCL 1,000 MG in SODIUM CHLORIDE 0.9% 250 ML IV SCH (11:02)
--- NOTE | 2020-10-16 12:32 | Hospitalist Progress Note ---
Date of Service October 15, 2020 Assessment & Plan (1) Acute respiratory failure with hypoxia and hypercapnia: multifactorial - suspected b/l pneumonia; acute/chronic right-sided CHF & acute/chronic diastolic CHF; COPD exacerbation. all improved/resolved. NC O2 weaned off to room air. (2) Bilateral pneumonia: improving clinically. MRSA+ thus continue with IV vanco. Day #4 of such. recent hospital stays - thus, covering gram negatives with IV zosyn; pharmacy advising changing to cefepime due to LAZ risk. day #5 of unasyn, then zosyn, and now cefepime defer on atypical coverage for now. plan 7 days of each (MRSA coverage, gram negative coverage) (3) Acute on chronic right-sided congestive heart failure: echo 08/2020 with RV systolic dysfunction and severe pulm HTN. significant valvular disease as well (MR, TR). appears compensated. d/c IV bumex; change to PO bumex 2mg daily. labs in am. patient counseled she needs to limit her total 24-hour fluid intake. (4) COPD (chronic obstructive pulmonary disease): with exacerbation. improved. cont steroids - no wean today (40mg prednisone) cont inhalers. (5) Acute on chronic diastolic (congestive) heart failure: compensated today (6) Encephalopathy: resolved. has h/o bipolar and prior stroke. cont to treat previously elevated ammonia levels with lactulose. suspect right heart failure causing hepatic congestion leading to high ammonia. hypercarbia also likely contributed to altered MS. metabolic encephalopathy from pneumonia probably also contributed. (7) History of COVID-19: Diagnosed with COVID-19 08/15/20. Repeat PCR COVID testing on 10/07 was positive. Negative influenza A/B and RSV testing on admission. However, cleared isolation precautions. Has b/l pneumonia but I do not feel this is COVID-related. (8) IDDM (insulin dependent diabetes mellitus): A1c was 7.2% in 08/2020. previously uncontrolled due to steroids but improved with changes in lantus and novolog. (9) Anemia: H/H acceptable / stable (10) Atrial fibrillation and flutter: INR > 3 today HOLD coumadin cont BB INR am (11) Bipolar disorder: Appreciate psych recommendations thorazine at HS trazodone HS (12) CKD (chronic kidney disease), stage III: Baseline Cr. ~1.5 - 2.0. Cr again stable today. BMP am. (13) Pulmonary hypertension: severe on echo 08/2020 cor pulmonale as well 2nd COPD?? (14) DVT prophylaxis: coumadin updated daughter extensively Sunday of this week and again questions answered d/c to [facility] -- Sunday? Sunday? d/c madden Admission and Anticipated Discharge Date Admission Date: October 07, 2020 Subjective patient overall feeling much better. she wants her diet (pureed) changed if possible. she denies any hemoptysis or dyspnea at rest. "I want to go home - can't you let me go home?" (rather than [facility]) she does typically use a prosthetic leg for ambulation - the leg is back at [facility]. does NOT use chronic madden. tele overnight stable. Review of Systems Constitutional: no fever, no fatigue and no anorexia Respiratory: + cough and + dyspnea on exertion Cardiovascular: no chest pain, no dyspnea at rest, no orthopnea and no edema Gastrointestinal: no abdominal pain and no vomiting Physical Exam Constitutional: + ill appearing and + frail appearing; no acute distress and no altered mental status ENMT: external ear and nose normal, oropharynx normal Nose: no epistaxis Respiratory: no respiratory distress Auscultation: + crackles (bases - minimal today) and + wheezes (mild - much improved ); no diminished lung sounds Cardiovascular: Rate/Rhythm: regular rate and regular rhythm Heart Sounds: normal S1, normal S2 and + murmur (2-3/6 holosystolic LLSB) Vessels: + JVD Extremities: no edema Gastrointestinal (Abdomen): Inspection/Auscultation: normal bowel sounds; abdomen not distended Percussion/Palpation: abdomen soft; no hepatosplenomegaly Musculoskeletal: right BKA Skin: + pallor Neurologic: Motor/Sensory: no asterixis Psychiatric: Orientation: alert, oriented to person and oriented to place; + not oriented to time (2021) Results & Data Results & Data ([facility]) Vital Signs (Past 12 Hours) Vital Signs Temp Pulse Resp BP Pulse Ox 10/16/20 10:45 71 18 94 10/16/20 07:30 36.6 C 82 20 150/96 H 96 10/16/20 07:23 81 18 97 Cr 1.7 INR 3.4 PG Care Time/CCT Total # of Minutes Spent Total Time Spent with Patient: Total time spent is greater than 50% in coordination of care (as documented) at patient's floor/unit and/or counseling patient: Coding Level of Care Code 98200 Subseq Hosp Care Lvl 3 Diagnoses Acute respiratory failure with hypoxia and hypercapnia J96.01; J96.02 Bilateral pneumonia J18.9 Pneumonia type: due to unspecified organism Lung location: unspecified part of lung Acute on chronic right-sided congestive heart failure I50.813 COPD (chronic obstructive pulmonary disease) J44.1 COPD type: COPD with acute exacerbation Acute on chronic diastolic (congestive) heart failure I50.33 Encephalopathy G93.40 History of COVID-19 Z86.16 IDDM (insulin dependent diabetes mellitus) Anemia D64.9 Anemia type: unspecified type Atrial fibrillation and flutter I48.91; I48.92 Bipolar disorder F31.9 Active/Remission status: currently active Psychotic features: without psychotic features CKD (chronic kidney disease), stage III N18.30 Chronic kidney disease stage 3 subtype: unspecified whether 3a or 3b Pulmonary hypertension I27.20 DVT prophylaxis Z29.9 (1) Bilateral pneumonia Pneumonia type: due to unspecified organism Lung location: unspecified part of lung Qualified Code(s): J18.9 - Pneumonia, unspecified organism (2) COPD (chronic obstructive pulmonary disease) COPD type: COPD with acute exacerbation Qualified Code(s): J44.1 - Chronic obstructive pulmonary disease with (acute) exacerbation (3) Anemia Anemia type: unspecified type Qualified Code(s): D64.9 - Anemia, unspecified (4) Bipolar disorder Active/Remission status: currently active Psychotic features: without psychotic features (5) CKD (chronic kidney disease), stage III Chronic kidney disease stage 3 subtype: unspecified whether 3a or 3b Qualified Code(s): N18.30 - Chronic kidney disease, stage 3 unspecified
[2020-10-16] MEDS: LORazepam 0.5 MG TAB PO PRN (13:35)
[2020-10-16 17:39] LABS: Beta-Hydroxybutyrate 1.63 mg/dl (0.2-2.81)
[2020-10-16] MEDS: WARFARIN SOD 2.5 MG TAB PO SCH (18:23)
--- NOTE | 2020-10-16 18:34 | XRay Report ---
XR chest 1V portable HISTORY: 60 years-old Female dyspnea, recent CHF acute shortness of breath COMPARISON: Chest radiograph 10/12/2020 TECHNIQUE: Portable AP view of the chest FINDINGS: Cardiac silhouette is enlarged. Unchanged bilateral hilar prominence. Small right and trace left pleu ral effusions, decreased in size from comparison. No pneumothorax. Mildly improved aeration of the farrukh ngs with persistent interstitial coarsening and ill-defined bilateral airspace opacities. Bones appea r grossly intact. Mild gaseous distention of the stomach. IMPRESSION: 1. Cardiomegaly with mildly improved pulmonary edema. 2. Small right and trace left pleural effusions have decreased in size from comparison. ACT 112: Negative or not required by law. The above report was generated using voice recognition software. It may contain grammatical, syntax o r spelling errors. Electronically signed by: Barry Sevilla M.D. 10/16/2020 6:33 PM
--- NOTE | 2020-10-16 18:59 | Hospitalist Progress Note ---
Date of Service October 16, 2020 Assessment & Plan (1) Acute respiratory failure with hypoxia and hypercapnia: multifactorial - suspected b/l pneumonia; acute/chronic right-sided CHF & acute/chronic diastolic CHF; COPD exacerbation. significant improvement through the week, then worse today. STAT cxr obtained - ongoing pulm edema. gave additional 2mg IV bumex for such. despite worsening status today she still remains stable in room air. (2) Bilateral pneumonia: has improved this week. MRSA+ thus continue with IV vanco. Day #5 of such. recent hospital stays - thus, covering gram negatives with IV zosyn; pharmacy advising changing to cefepime due to LAZ risk. day #6 of unasyn, then zosyn, and now cefepime plan 7 days of each antibiotic (MRSA coverage, gram negative coverage) (3) Acute on chronic right-sided congestive heart failure: echo 08/2020 with RV systolic dysfunction and severe pulm HTN. significant valvular disease as well (MR, TR). had been improving, but then worse today, and cxr w/ ongoing edema. additional IV bumex tonight, and IV bumex again in am if creatinine is stable. (4) COPD (chronic obstructive pulmonary disease): with exacerbation. cont steroids - wean prednisone to 30mg/day in am cont inhalers. (5) Acute on chronic diastolic (congestive) heart failure: decompensated = see above under right heart failure (6) Encephalopathy: resolved. has h/o bipolar and prior stroke. cont to treat previously elevated ammonia levels with lactulose. suspect right heart failure causing hepatic congestion leading to high ammonia. hypercarbia also likely contributed to altered MS. metabolic encephalopathy from pneumonia probably also contributed. (7) History of COVID-19: Diagnosed with COVID-19 08/15/20. Repeat PCR COVID testing on 10/07 was positive. Negative influenza A/B and RSV testing on admission. However, cleared isolation precautions. Has b/l pneumonia but I do not feel this is COVID-related. (8) IDDM (insulin dependent diabetes mellitus): A1c was 7.2% in 08/2020. labile/fragile leave lantus and novolog as is - sugars should continue to improve w/ weaning of prednisone. (9) Anemia: H/H acceptable / stable (10) Atrial fibrillation and flutter: resumed coumadin 2.5mg daily with daily INR cont BB remains in NSR (11) Bipolar disorder: Appreciate psych recommendations thorazine at HS trazodone HS (12) CKD (chronic kidney disease), stage III: Baseline Cr. ~1.5 - 2.0. Cr again stable today. BMP am. (13) Pulmonary hypertension: severe on echo 08/2020 cor pulmonale as well 2nd COPD?? (14) DVT prophylaxis: coumadin updated daughter extensively Sunday of this week and again questions answered Admission and Anticipated Discharge Date Admission Date: October 07, 2020 Subjective In the same sentence patient stated she had a "horrible day" - due to increased dyspnea - but then asked for hospital discharge. She c/o severe anxiety and stated she wanted her ativan made q4h (from q6h). Mild cough. Eating ok but states she "hates the food." Denies any pain today. Telemetry wnl overnight. Review of Systems Constitutional: no anorexia Respiratory: + cough, + dyspnea and + wheezing Cardiovascular: no chest pain and no edema Gastrointestinal: no abdominal pain Physical Exam Constitutional: + acute distress (dyspnea, tachypnea ), + ill appearing and + frail appearing; no altered mental status ENMT: external ear and nose normal, oropharynx normal Respiratory: + respiratory distress (tachypnea) and + retractions (mild ) Auscultation: + crackles (bases - no change) and + wheezes (worse today, b/l ); no diminished lung sounds Cardiovascular: Rate/Rhythm: regular rate and regular rhythm Heart Sounds: normal S1, normal S2 and + murmur (2-3/6 holosystolic LLSB) Vessels: + JVD Extremities: no edema Gastrointestinal (Abdomen): Inspection/Auscultation: normal bowel sounds; abdomen not distended Percussion/Palpation: abdomen soft; no hepatosplenomegaly Musculoskeletal: right BKA Neurologic: Motor/Sensory: no asterixis Psychiatric: Orientation: alert, oriented to person and oriented to place Results & Data Results & Data ([facility]) Vital Signs (Past 12 Hours) Vital Signs Temp Pulse Pulse Resp BP Pulse Ox 10/16/20 15:52 36.5 C 100 H 20 163/107 H 96 10/16/20 15:26 93 H 22 95 03/13/21 14:30 96 H 10/16/20 13:08 36.3 C L 92 H 22 166/104 H 96 10/16/20 13:05 76 22 96 10/16/20 10:45 71 18 94 10/16/20 07:30 36.6 C 82 20 150/96 H 96 10/16/20 07:23 81 18 97 10/16/20 07:00 79 Laboratory Results Laboratory Results - last 24 hr 10/15/20 10/16/20 10/16/20 20:24 06:15 06:15 PT 26.1 H INR 2.8 H Sodium Potassium Chloride Carbon Dioxide Anion Gap BUN Creatinine 1.73 H Est Cr Clr Drug Dosing 38.3 Est GFR ( Amer) 37.1 Est GFR (Non-Af Amer) 32.0 BUN/Creatinine Ratio Glucose POC Glucose 157 H Calcium Beta-Hydroxybutyric Acd 10/16/20 10/16/20 10/16/20 06:15 07:19 11:23 PT INR Sodium 134 L Potassium 4.4 Chloride 100 Carbon Dioxide 29 Anion Gap 5.0 BUN 72 H Creatinine 1.68 H Est Cr Clr Drug Dosing 39.5 Est GFR ( Amer) 38.4 Est GFR (Non-Af Amer) 33.1 BUN/Creatinine Ratio 43.1 H Glucose 148 H POC Glucose 129 H 189 H Calcium 8.5 Beta-Hydroxybutyric Acd 10/16/20 10/16/20 10/16/20 16:43 16:47 16:59 PT INR Sodium Potassium Chloride Carbon Dioxide Anion Gap BUN Creatinine Est Cr Clr Drug Dosing Est GFR ( Amer) Est GFR (Non-Af Amer) BUN/Creatinine Ratio Glucose 317 H* POC Glucose 302 H* 363 H* Calcium Beta-Hydroxybutyric Acd 1.63 PG Care Time/CCT Total # of Minutes Spent Total Time Spent with Patient: Total time spent is greater than 50% in coordination of care (as documented) at patient's floor/unit and/or counseling patient: Coding Level of Care Code 41824 Subseq Hosp Care Lvl 3 Diagnoses Acute respiratory failure with hypoxia and hypercapnia J96.01; J96.02 Bilateral pneumonia J18.9 Lung location: unspecified part of lung Pneumonia type: due to unspecified organism Acute on chronic right-sided congestive heart failure I50.813 COPD (chronic obstructive pulmonary disease) J44.1 COPD type: COPD with acute exacerbation Acute on chronic diastolic (congestive) heart failure I50.33 Encephalopathy G93.40 History of COVID-19 Z86.16 IDDM (insulin dependent diabetes mellitus) Anemia D64.9 Anemia type: unspecified type Atrial fibrillation and flutter I48.91; I48.92 Bipolar disorder F31.9 Active/Remission status: currently active Psychotic features: without psychotic features CKD (chronic kidney disease), stage III N18.30 Chronic kidney disease stage 3 subtype: unspecified whether 3a or 3b Pulmonary hypertension I27.20 DVT prophylaxis Z29.9 (1) CKD (chronic kidney disease), stage III Chronic kidney disease stage 3 subtype: unspecified whether 3a or 3b Q ualified Code(s): N18.30 - Chronic kidney disease, stage 3 unspecified (2) Anemia Anemia type: unspecified type Qualified Code(s): D64.9 - Anemia, unspecified (3) Bipolar disorder Active/Remission status: currently active Psychotic features: without psychotic features (4) COPD (chronic obstructive pulmonary disease) COPD type: COPD with acute exacerbation Qualified Code(s): J44.1 - Chronic ob structive pulmonary disease with (acute) exacerbation (5) Bilateral pneumonia Lung location: unspecified part of lung Pneumonia type: due to unspecified organism Qualified Code(s): J18.9 - Pneumonia, unspecified organism
[2020-10-16] MEDS ORDERED: BUMETANIDE 2 MG in SYRINGE 0 ML IV ONE (19:30)
[2020-10-16] MEDS: traZODone HCL 50 MG TAB PO PRN (20:53)
[2020-10-16] MEDS: chlorproMAZINE HCL 25 MG TAB PO SCH (20:53)
[2020-10-17 06:14] LABS: INR 2.1 (0.9-1.1); Prothrombin Time 20.3 Seconds (9.0-12.0)
[2020-10-17 06:39] LABS: BUN Creatinine Ratio 44.5 (10-20); Calcium 8.5 mg/dl (8.5-10.1); Creatinine Clr Calc Pharmacy 40.4 ml/min; Est GFR (African American) 39.5; Est GFR (Non-African American) 34.1; Magnesium 2.3 mg/dl (1.8-2.4); Potassium 3.9 mmol/L (3.5-5.1)
[2020-10-17] MEDS: IPRATROPIUM BROMIDE HFA INHALER INH SCH ×4 (07:25→19:52)
[2020-10-17] MEDS: ALBUTEROL HFA 8 GM INHALER INH SCH ×4 (07:26→19:52)
[2020-10-17] MEDS: INSULIN ASPART 100 UNITS/ML 3 ML PEN SC SCH ×4 (08:18→21:11)
[2020-10-17] MEDS: INSULIN GLARGINE SOLOSTAR 100 UNITS/ML 3 ML PEN SQ SCH ×2 (08:19→21:10)
[2020-10-17] MEDS: predniSONE 10 MG TABLET PO SCH (08:21)
[2020-10-17] MEDS: LACTULOSE SYRUP 30 GM/45 ML UDP PO SCH (08:23)
[2020-10-17] MEDS: FLUTICASONE FUROATE 100MCG 14 PUFFS/INHALER INH SCH (08:23)
[2020-10-17] MEDS: UMECLIDINIUM/VILANTEROL 62.5/25MCG 7 PUFFS/INHALER INH SCH (08:23)
[2020-10-17] MEDS: ASPIRIN 81 MG ECTAB PO SCH (08:24)
[2020-10-17] MEDS: PANTOprazole 40 MG TAB PO SCH (08:24)
[2020-10-17] MEDS: NICOTINE 21 MG/24 HR TDSY TD SCH (08:25)
[2020-10-17] MEDS: METOPROLOL SUCC 50MG EXT REL TAB PO SCH ×2 (08:25→21:04)
[2020-10-17] MEDS: CHOLECALCIFEROL 1,000 UNITS 25 MCG TAB PO SCH (08:25)
[2020-10-17] MEDS: LIDOCAINE 5% 1 PATCH TD SCH (08:26)
[2020-10-17] MEDS ORDERED: BUMETANIDE 2 MG in SYRINGE 0 ML IV SCH (08:30)
[2020-10-17] MEDS: CEFEPIME 2,000 MG in SYRINGE 0 ML IV SCH ×2 (08:33→21:03)
[2020-10-17] MEDS ORDERED: VANCOMYCIN TROUGH ONE (09:30)
--- NOTE | 2020-10-17 10:43 | Pharmacy Report ---
Pharmacy Abx Dose Short Note - Date of Service October 17, 2020 - Assessment & Plan Assessment * 60 year old F on cefepime and vancomycin for acute respiratory failure with hypoxia and hypercapnia, suspected b/l pneumonia, and COPD exacerbation * Patient improving per provider prog notes * Recent hospitalization therefore Pseudomonas coverage w cefepime warranted. Positive MRSA nasal swab therefore vancomycin appropriate. * 3/7 Blood cultures 1 of 2 w coag negative Staph - likely contaminant * Per provider notes, 7 days of MRSA and Pseudomonas coverage * Today is Day #6 of both Plan Vancomycin * Trough level of 27.5 mcg/mL is supratherapeutic * Believe patient's half-life is closer to 36 hours based on patient specific kinetic calculations * Will order a random for tonight ~36 hours after the last dose patient received * If random level < 20 mcg/mL, then will start new dose at this time * Change to 1000 mg IV every 36 hours * Will start this evening pending random level being < 20 mcg/mL * Goal trough level: 15 to 20 mcg/mL Cefepime * 2 g IV every 12 hours remains appropriate per indication and renal function Pharmacy will continue to follow and will adjust dose/frequency as necessary. Thank you.
[2020-10-17] MEDS: VANCOMYCIN HCL 1,000 MG in SODIUM CHLORIDE 0.9% 250 ML IV SCH (11:27)
[2020-10-17] MEDS: LORazepam 0.5 MG TAB PO PRN ×2 (12:52→19:28)
[2020-10-17] MEDS: WARFARIN SOD 2.5 MG TAB PO SCH (16:20)
[2020-10-17] MEDS ORDERED: BUMETANIDE 1 MG TAB PO ONE (17:45)
--- NOTE | 2020-10-17 19:39 | Hospitalist Progress Note ---
Date of Service October 17, 2020 Assessment & Plan (1) Acute respiratory failure with hypoxia and hypercapnia: multifactorial - suspected b/l pneumonia; acute/chronic right-sided CHF & acute/chronic diastolic CHF; COPD exacerbation. Has improved nicely during the week with weaning off of O2. Cont steroid wean. Finish abx (tomorrow last day). Still diuresing. (2) Bilateral pneumonia: Improved/resolving. MRSA+ thus continue with IV vanco. Day #6 of such. d/c vanco tomorrow after 7th day dosing. recent hospital stays - thus, covering gram negative pneumonia. day #7 of unasyn, then zosyn, and now cefepime. stop cefepime today. (3) Acute on chronic right-sided congestive heart failure: echo 08/2020 with RV systolic dysfunction and severe pulm HTN. significant valvular disease as well (MR, TR). suspect we are close to euvolemia. copious diuresis this entire stay and significant fluid weight loss. give additional IV and PO bumex today, then reassess renal function in am. suspect we can resume PO bumex tomorrow - may need bumex 2mg BID (had been on 2mg daily and developed significant decompensation). (4) COPD (chronic obstructive pulmonary disease): with exacerbation. resolving. cont steroids - wean prednisone to 30mg today cont inhalers. (5) Acute on chronic diastolic (congestive) heart failure: see above under right heart failure (6) Encephalopathy: resolved. has h/o bipolar and prior stroke. cont to treat previously elevated ammonia levels with lactulose. suspect right heart failure causing hepatic congestion leading to high ammonia. hypercarbia also likely contributed to altered MS. metabolic encephalopathy from pneumonia probably also contributed. (7) History of COVID-19: Diagnosed with COVID-19 08/15/20. Repeat PCR COVID testing on 10/07 was positive. Negative influenza A/B and RSV testing on admission. However, cleared isolation precautions. Has b/l pneumonia but I do not feel this is active COVID (8) IDDM (insulin dependent diabetes mellitus): A1c was 7.2% in 08/2020. labile/fragile leave novolog as is but lower lantus to 25 units BID (9) Anemia: H/H acceptable / stable (10) Atrial fibrillation and flutter: coumadin 2.5mg daily with daily INR cont BB remains in NSR larger doses of coumadin led to rapid rise in INR -- likely has liver dysfunction from passive congestion from cor pulmonale (11) Bipolar disorder: Appreciate psych recommendations thorazine at HS trazodone HS (12) CKD (chronic kidney disease), stage III: Baseline Cr. ~1.5 - 2.0. Cr again stable today. BMP am. (13) Pulmonary hypertension: severe on echo 08/2020 cor pulmonale as well 2nd COPD?? (14) Stroke: 07/2020 - LEFT medial frontal lobe stroke, hospitalized at [facility]. [place] to be cardioembolic from a.fib. Anticoagulation started during that admission. (15) DVT prophylaxis: coumadin updated daughter extensively Sunday of this week, , and again today questions answered she is pleased her mother is better Admission and Anticipated Discharge Date Admission Date: October 07, 2020 Subjective patient having a good day today. eating well. no dyspnea like yesterday. coughing, but nonproductive, occasional brown sputum but no hemoptysis. in good spirits today. no c/o pain. having 1-2 BMs/day - soft, formed, no diarrhea. updated pt's daughter extensively by phone today -- daughter and family agree that she is doing well and mental status is really good. tele overnight - wnl. Review of Systems Constitutional: no fever, no chills, no fatigue and no anorexia Respiratory: + cough, + sputum production and + wheezing; no dyspnea and no hemoptysis Cardiovascular: no chest pain Gastrointestinal: no abdominal pain, no nausea and no vomiting Physical Exam Constitutional: + frail appearing; no acute distress and no altered mental status looks much older than stated age ENMT: external ear and nose normal, oropharynx normal Respiratory: Auscultation: + wheezes (Mild b/l ); no diminished lung sounds and no crackles Cardiovascular: Rate/Rhythm: regular rate and regular rhythm Heart Sounds: normal S1, normal S2 and + murmur (2-3/6 holosystolic LLSB) Vessels: + JVD Extremities: no edema Gastrointestinal (Abdomen): Inspection/Auscultation: normal bowel sounds; abdomen not distended Percussion/Palpation: abdomen soft; no hepatosplenomegaly Musculoskeletal: right BKA; left great toe absent Neurologic: Motor/Sensory: no asterixis Psychiatric: Orientation: alert, oriented to person, oriented to place and oriented to time Results & Data Results & Data ([facility]) Vital Signs (Past 12 Hours) Vital Signs Temp Pulse Pulse Resp BP BP Pulse Ox 10/17/20 19:17 36.6 C 94 H 22 150/93 H 97 10/17/20 15:50 36.4 C L 89 22 161/99 H 97 10/17/20 15:31 91 H 20 99 10/17/20 14:51 10/17/20 14:30 93 H 10/17/20 11:32 36.5 C 85 20 148/93 H 96 10/17/20 11:12 73 20 93 10/17/20 08:00 82 Pulse Ox 10/17/20 19:17 10/17/20 15:50 10/17/20 15:31 10/17/20 14:51 94 10/17/20 14:30 10/17/20 11:32 10/17/20 11:12 10/17/20 08:00 Laboratory Results Laboratory Results - last 24 hr 10/16/20 10/17/20 10/17/20 20:31 05:31 05:31 PT 20.3 H INR 2.1 H Sodium 134 L Potassium 3.9 Chloride 99 Carbon Dioxide 29 Anion Gap 6.0 BUN 73 H Creatinine 1.64 H Est Cr Clr Drug Dosing 40.4 Est GFR ( Amer) 39.5 Est GFR (Non-Af Amer) 34.1 BUN/Creatinine Ratio 44.5 H Glucose 122 H POC Glucose 378 H* Calcium 8.5 Magnesium 2.3 Vancomycin Trough 10/17/20 10/17/20 10/17/20 07:30 09:10 11:28 PT INR Sodium Potassium Chloride Carbon Dioxide Anion Gap BUN Creatinine Est Cr Clr Drug Dosing Est GFR ( Amer) Est GFR (Non-Af Amer) BUN/Creatinine Ratio Glucose POC Glucose 134 H 128 H Calcium Magnesium Vancomycin Trough 27.5 10/17/20 16:20 PT INR Sodium Potassium Chloride Carbon Dioxide Anion Gap BUN Creatinine Est Cr Clr Drug Dosing Est GFR ( Amer) Est GFR (Non-Af Amer) BUN/Creatinine Ratio Glucose POC Glucose 218 H Calcium Magnesium Vancomycin Trough PG Care Time/CCT Total # of Minutes Spent Total Time Spent with Patient: Total time spent is greater than 50% in coordination of care (as documented) at patient's floor/unit and/or counseling patient: Coding Level of Care Code 61469 Subseq Hosp Care Lvl 3 Diagnoses Acute respiratory failure with hypoxia and hypercapnia J96.01; J96.02 Bilateral pneumonia J18.9 Lung location: unspecified part of lung Pneumonia type: due to unspecified organism Acute on chronic right-sided congestive heart failure I50.813 COPD (chronic obstructive pulmonary disease) J44.1 COPD type: COPD with acute exacerbation Acute on chronic diastolic (congestive) heart failure I50.33 Encephalopathy G93.40 History of COVID-19 Z86.16 IDDM (insulin dependent diabetes mellitus) Anemia D64.9 Anemia type: unspecified type Atrial fibrillation and flutter I48.91; I48.92 Bipolar disorder F31.9 Active/Remission status: currently active Psychotic features: without psychotic features CKD (chronic kidney disease), stage III N18.30 Chronic kidney disease stage 3 subtype: unspecified whether 3a or 3b Pulmonary hypertension I27.20 Stroke I63.9 DVT prophylaxis Z29.9 (1) CKD (chronic kidney disease), stage III Chronic kidney disease stage 3 subtype: unspecified whether 3a or 3b Qualified Code(s): N18.30 - Chronic kidney disease, stage 3 unspecified (2) Anemia Anemia type: unspecified type Qualified Code(s): D64.9 - Anemia, unspecified (3) Bipolar disorder Active/Remission status: currently active Psychotic features: without psychotic features (4) COPD (chronic obstructive pulmonary disease) COPD type: COPD with acute exacerbation Qualified Code(s): J44.1 - Chronic obstructive pulmonary disease with (acute) exacerbation (5) Bilateral pneumonia Lung location: unspecified part of lung Pneumonia type: due to unspecified organism Qualified Code(s): J18.9 - Pneumonia, unspecified organism
[2020-10-17] MEDS: chlorproMAZINE HCL 25 MG TAB PO SCH (21:04)
[2020-10-17] MEDS: traZODone HCL 50 MG TAB PO PRN (22:24)
[2020-10-18 06:21] LABS: Hematocrit (blood only) 39.2 % (37-47); Mean Corpuscular Hemoglobin 28.9 pg (25-34); Mean Corpuscular Hgb Conc 33.2 g/dL (32-36); Mean Corpuscular Volume 87.1 fL (80-100); Mean Platelet Volume 9.5 fL (7.4-10.4); Platelet Count 317 K/uL (130-400); RDW Coefficient of Variation 19.8 % (11.5-14.5); RDW Standard Deviation 63.2 fL (36.4-46.3); White Blood Count 12.82 K/uL (4.8-10.8)
[2020-10-18 06:43] LABS: BUN Creatinine Ratio 41.4 (10-20); Calcium 8.7 mg/dl (8.5-10.1); Creatinine Clr Calc Pharmacy 38.1 ml/min; Est GFR (African American) 36.8; Est GFR (Non-African American) 31.8; Potassium 3.5 mmol/L (3.5-5.1)
[2020-10-18] MEDS: IPRATROPIUM BROMIDE HFA INHALER INH SCH ×4 (07:27→19:05)
[2020-10-18] MEDS: ALBUTEROL HFA 8 GM INHALER INH SCH ×4 (07:27→19:05)
[2020-10-18] MEDS: INSULIN ASPART 100 UNITS/ML 3 ML PEN SC SCH ×4 (08:15→21:55)
[2020-10-18] MEDS: INSULIN GLARGINE SOLOSTAR 100 UNITS/ML 3 ML PEN SQ SCH ×2 (08:16→21:55)
[2020-10-18] MEDS: ASPIRIN 81 MG ECTAB PO SCH (08:18)
[2020-10-18] MEDS: LACTULOSE SYRUP 30 GM/45 ML UDP PO SCH (08:18)
[2020-10-18] MEDS: NICOTINE 21 MG/24 HR TDSY TD SCH (08:19)
[2020-10-18] MEDS: PANTOprazole 40 MG TAB PO SCH (08:19)
[2020-10-18] MEDS: CHOLECALCIFEROL 1,000 UNITS 25 MCG TAB PO SCH (08:19)
[2020-10-18] MEDS: predniSONE 10 MG TABLET PO SCH (08:20)
[2020-10-18] MEDS: LIDOCAINE 5% 1 PATCH TD SCH (08:20)
[2020-10-18] MEDS: METOPROLOL SUCC 50MG EXT REL TAB PO SCH ×2 (08:20→21:53)
[2020-10-18] MEDS: FLUTICASONE FUROATE 100MCG 14 PUFFS/INHALER INH SCH (08:21)
[2020-10-18] MEDS: UMECLIDINIUM/VILANTEROL 62.5/25MCG 7 PUFFS/INHALER INH SCH (08:21)
--- NOTE | 2020-10-18 09:18 | Pharmacy Report ---
Pharmacy Abx Dose Short Note - Date of Service October 18, 2020 - Assessment & Plan Assessment * 60 year old F on cefepime and vancomycin for acute respiratory failure with hypoxia and hypercapnia, suspected b/l pneumonia, and COPD exacerbation * Patient improving per provider prog notes * Recent hospitalization therefore Pseudomonas coverage w cefepime warranted. Positive MRSA nasal swab therefore vancomycin appropriate. * 3/7 Blood cultures 1 of 2 w coag negative Staph - likely contaminant * Per provider notes, 7 days of MRSA and Pseudomonas coverage * Today is Day #7 of both - Provider okay with today being last day of abx. Plan Vancomycin * Random level 36 hours after last dose was still elevated at 23.8 mcg/mL. Will give last dose of Vancomycin 1000 mg this morning at 10 am. No further doses or troughs will be ordered. Cefepime has been discontinued as well. Pharmacy will continue to follow and will adjust dose/frequency as necessary. Thank you.
[2020-10-18] MEDS ORDERED: VANCOMYCIN HCL 1,000 MG in SODIUM CHLORIDE 0.9% 250 ML IV SCH (10:00)
[2020-10-18] MEDS: BUMETANIDE 2 MG in SYRINGE 0 ML IV SCH (11:01)
[2020-10-18] MEDS: POTASSIUM CHLORIDE CRTAB 20 MEQ TABCR PO SCH ×2 (11:01→21:54)
[2020-10-18] MEDS: LORazepam 0.5 MG TAB PO PRN (12:07)
--- NOTE | 2020-10-18 12:28 | Hospitalist Progress Note ---
Date of Service October 18, 2020 Assessment & Plan (1) Acute respiratory failure with hypoxia and hypercapnia: multifactorial - suspected b/l pneumonia; acute/chronic right-sided CHF & acute/chronic diastolic CHF; COPD exacerbation. Resolved. Currently on room air. Antibiotic therapy will be discontinued after today's dosing. Continue IV Bumex diuresis. Continue prednisone weaning (2) Bilateral pneumonia: Improved/resolving. MRSA+ . Will finish antibiotic therapy today. She will have received a total of 7 days of therapy. (3) Acute on chronic right-sided congestive heart failure: echo 08/2020 with RV systolic dysfunction and severe pulm HTN. significant valvular disease as well (MR, TR).Copious diuresis this entire stay and significant fluid weight loss. Continue IV Bumex daily while hospitalized. Switch to oral dosing at discharge. (4) COPD (chronic obstructive pulmonary disease): with exacerbation on admission. Now resolved. Continue prednisone taper. Continue inhaler therapy. (5) Acute on chronic diastolic (congestive) heart failure: Continue Bumex diuresis. Continue medical management. Monitor intake and output. (6) Encephalopathy: Metabolic. Resolved. cont to treat previously elevated ammonia levels with lactulose. (7) History of COVID-19: Diagnosed with COVID-19 08/15/20. Repeat PCR COVID testing on 10/07 was positive. Negative influenza A/B and RSV testing on admission. However, cleared isolation precautions. Has b/l pneumonia but not active COVID (8) IDDM (insulin dependent diabetes mellitus): A1c was 7.2% in 08/2020. labile/fragile. Lantus down titrated this admission. ADA diet. Sliding scale coverage. (9) Anemia: H/H acceptable / stable (10) Atrial fibrillation and flutter: coumadin 2.5mg daily with daily INR cont BB remains in NSR (11) Bipolar disorder: Appreciate psych recommendations thorazine at HS trazodone HS (12) CKD (chronic kidney disease), stage III: Baseline Cr. ~1.5 - 2.0. Cr now stable (13) Pulmonary hypertension: severe on echo 08/2020. Suspected chronic cor pulmonale. (14) Stroke: 07/2020 - LEFT medial frontal lobe stroke, hospitalized at [facility]. [place] to be cardioembolic from a.fib. Anticoagulation started during that admission. (15) DVT prophylaxis: coumadin Disposition: Probable discharge to [facility] tomorrow, October 19 Admission and Anticipated Discharge Date Admission Date: October 07, 2020 Subjective Alert. No complaints. She is asking when she can go back to [facility]. Antibiotics will be discontinued after today's dosing. Continue intravenous Bumex while hospitalized. She is on a prednisone taper. Potassium trending downward to 3.5. Oral potassium replacement ordered. Significant diuresis yesterday. Review of Systems Review of Systems: All systems reviewed & are unremarkable except as noted in HPI & below Physical Exam Physical Exam: General-alert and oriented x3, no fevers, no chills HEENT-head atraumatic and normocephalic, TMs intact bilaterally, pupils equal and reactive to light, extraocular muscles intact Neck-no lymphadenopathy or thyromegaly, trachea midline Chest-clear to auscultation percussion. No rales wheezing or rhonchi Cardiac-regular rate and rhythm, normal S1 and S2, no murmurs Abdomen-normal bowel sounds, nontender, no hepatosplenomegaly Extremities-no cyanosis, clubbing, or edema Neuro-cranial nerves II through XII intact, motor and sensory function within normal limits, strength symmetrical , no focal deficits Psych-normal affect, normal mood Results & Data Results & Data ([facility]) Vital Signs (Past 12 Hours) Vital Signs Temp Pulse Pulse Resp BP BP Pulse Ox 10/18/20 11:27 36.4 C L 93 H 20 159/99 H 97 10/18/20 11:17 80 20 92 10/18/20 08:11 36.6 C 81 22 133/89 96 10/18/20 08:00 79 10/18/20 07:27 80 16 98 10/18/20 04:06 37.2 C 82 18 135/86 96 Laboratory Results 10/18/20 05:56 10/18/20 05:56 PG Care Time/CCT Total # of Minutes Spent Total Time Spent with Patient: Total time spent is greater than 50% in coordination of care (as documented) at patient's floor/unit and/or counseling patient: Coding Level of Care Code 80710 Subseq Hosp Care Lvl 3 Diagnoses Acute respiratory failure with hypoxia and hypercapnia J96.01; J96.02 Bilateral pneumonia J18.9 Pneumonia type: due to unspecified organism Lung location: unspecified part of lung Acute on chronic right-sided congestive heart failure I50.813 COPD (chronic obstructive pulmonary disease) J44.1 COPD type: COPD with acute exacerbation Acute on chronic diastolic (congestive) heart failure I50.33 Encephalopathy G93.40 History of COVID-19 Z86.16 IDDM (insulin dependent diabetes mellitus) Anemia D64.9 Anemia type: unspecified type Atrial fibrillation and flutter I48.91; I48.92 Bipolar disorder F31.9 Active/Remission status: currently active Psychotic features: without psychotic features CKD (chronic kidney disease), stage III N18.30 Chronic kidney disease stage 3 subtype: unspecified whether 3a or 3b Pulmonary hypertension I27.20 Stroke I63.9 DVT prophylaxis Z29.9 (1) Bilateral pneumonia Pneumonia type: due to unspecified organism Lung location: unspecified part of lung Qualified Code(s): J18.9 - Pneumonia, unspecified organism (2) COPD (chronic obstructive pulmonary disease) COPD type: COPD with acute exacerbation Qualified Code(s): J44.1 - Chronic obstructive pulmonary disease with (acute) exacerbation (3) Anemia Anemia type: unspecified type Qualified Code(s): D64.9 - Anemia, unspecified (4) Bipolar disorder Active/Remission status: currently active Psychotic features: without psychotic features (5) CKD (chronic kidney disease), stage III Chronic kidney disease stage 3 subtype: unspecified whether 3a or 3b Qualified Code(s): N18.30 - Chronic kidney disease, stage 3 unspecified
[2020-10-18] MEDS: WARFARIN SOD 2.5 MG TAB PO SCH (17:06)
[2020-10-18] MEDS: oxyCODONE HCL IR 5 MG TAB (IMMEDIATE RELEASE) PO PRN ×2 (17:18→23:49)
[2020-10-18] MEDS: POLYETHYLENE (MIRALAX) 17 GM PACK PO PRN (20:14)
[2020-10-18] MEDS: chlorproMAZINE HCL 25 MG TAB PO SCH (21:53)
[2020-10-18] MEDS: traZODone HCL 50 MG TAB PO PRN (21:53)
[2020-10-19] MEDS: LORazepam 0.5 MG TAB PO PRN ×2 (07:29→15:14)
[2020-10-19] MEDS: oxyCODONE HCL IR 5 MG TAB (IMMEDIATE RELEASE) PO PRN ×2 (07:29→13:10)
[2020-10-19 07:59] LABS: INR 1.7 (0.9-1.1); Prothrombin Time 16.6 Seconds (9.0-12.0)
[2020-10-19] MEDS: IPRATROPIUM BROMIDE HFA INHALER INH SCH ×2 (08:15→11:08)
[2020-10-19] MEDS: ALBUTEROL HFA 8 GM INHALER INH SCH (08:16)
[2020-10-19 08:23] LABS: BUN Creatinine Ratio 38.9 (10-20); Calcium 8.9 mg/dl (8.5-10.1); Creatinine Clr Calc Pharmacy 37.3 ml/min; Est GFR (African American) 35.8; Est GFR (Non-African American) 30.9; Potassium 4.5 mmol/L (3.5-5.1)
[2020-10-19] MEDS: NICOTINE 21 MG/24 HR TDSY TD SCH (09:07)
[2020-10-19] MEDS: LIDOCAINE 5% 1 PATCH TD SCH (09:08)
[2020-10-19] MEDS: predniSONE 10 MG TABLET PO SCH (09:10)
[2020-10-19] MEDS: PANTOprazole 40 MG TAB PO SCH (09:10)
[2020-10-19] MEDS: METOPROLOL SUCC 50MG EXT REL TAB PO SCH (09:10)
[2020-10-19] MEDS: ASPIRIN 81 MG ECTAB PO SCH (09:10)
[2020-10-19] MEDS: POTASSIUM CHLORIDE CRTAB 20 MEQ TABCR PO SCH (09:11)
[2020-10-19] MEDS: BUMETANIDE 2 MG in SYRINGE 0 ML IV SCH (09:11)
[2020-10-19] MEDS: UMECLIDINIUM/VILANTEROL 62.5/25MCG 7 PUFFS/INHALER INH SCH (09:12)
[2020-10-19] MEDS: FLUTICASONE FUROATE 100MCG 14 PUFFS/INHALER INH SCH (09:12)
[2020-10-19] MEDS: CHOLECALCIFEROL 1,000 UNITS 25 MCG TAB PO SCH (09:12)
[2020-10-19] MEDS: LACTULOSE SYRUP 30 GM/45 ML UDP PO SCH (09:18)
[2020-10-19] MEDS: INSULIN ASPART 100 UNITS/ML 3 ML PEN SC SCH ×2 (09:32→12:19)
[2020-10-19] MEDS: INSULIN GLARGINE SOLOSTAR 100 UNITS/ML 3 ML PEN SQ SCH (09:33)
--- NOTE | 2020-10-19 12:27 | Discharge Summary ---
Date of Service October 19, 2020 Admission HPI Per Admitting Provider Zahida Garay is a 60 yo female with PMHx of atrial fibrillation, anemia, CKD, HTN, CVA, COVID-19 infection August 2020, IDDM, diastolic CHF, bipolar disorder, and right BKA who presented to the ED with SOB and hypoxia. History is obtained primarily through chart review and custodial records ([facility]). Patient recently admitted at [facility] from 08/15/20 to 08/30/20. She was discharged to [facility] and per [place] records, she was recently treated for pneumonia with Zithromax and a 10 day course of Augmentin (last dose 10/04). Today, patient was found to have increased lethargy, SOB, and hypoxia with O2 sat in the 80s. Patient does admit to SOB but states that this has been persistent for the past several weeks. She "doesn't know why" she was sent to the hospital. Patient reports persistent dry cough but denies fever, chills, abd pain, nausea, vomiting, leg pain, or leg swelling. Additionally, it is noted in records that patient has had recent increased LE edema. She is on Bumex 2mg daily but received an additional dose of 2mg Bumex on 10/05 (2 days ago) due to increased edema and inability to put on RLE prosthesis secondary to the edema. Records report that patient has not been compliant with fluid restrictions of < 2,000 mL intake daily. Her daily weights have not had a significant change (weight today 175 lbs, yesterday 178 lbs). Patient's anticoagulation with coumadin has been adjusted; INR on 10/04 was 1.3 --> patient received 10mg coumadin x 2 days --> recheck INR 10/06 2.1 --> coumadin regimen adjusted to 7.5mg po daily / and 5mg po daily ////Sun. Principal Diagnosis Acute on chronic diastolic congestive heart failure, acute respiratory failure, suspected pneumonia, exacerbation COPD Discharge Exam Constitutional WD/WN, vitals as above Eyes PERRL, conjunctivae normal, anicteric sclerae ENMT external ear and nose normal, oropharynx normal Neck trachea midline, no thyromegaly Respiratory normal respiratory effort, lungs clear to auscultation Cardiovascular RRR, no murmur, no edema Gastrointestinal (Abdomen) normal bowel sounds, soft, nontender, no hepatosplenomegaly Musculoskeletal no cyanosis or clubbing, extremities motor strength 5/5 Skin no rashes, warm and dry Neurologic CN's II-XI intact bilaterally Discharge Data Allergies Allergy/AdvReac Type Severity Reaction Status Date / Time shellfish derived Allergy Unknown Unknown Verified 10/07/20 15:51 Consultations 10/07/20 17:27 ED Decision to Admit Stat 10/10/20 13:45 Consult Psychiatry Routine Ordered Studies 10/07/20 14:46 CT abd pelvis wo con Stat 10/10/20 08:31 CT chest diagnostic wo con Routine 10/10/20 13:45 US abdomen limited Routine Hospital Course (1) Acute respiratory failure with hypoxia and hypercapnia: multifactorial - suspected b/l pneumonia; acute/chronic right-sided CHF & acute/chronic diastolic CHF; COPD exacerbation. Resolved. Currently on room air. Antibiotic therapy discontinued after dosing on 10/18. Continue IV Bumex diuresis while hospitalized. Switch to oral Bumex at discharge. Continue prednisone weaning (2) Bilateral pneumonia: Improved/resolving. MRSA+ . Finish antibiotic therapy 10/18. She received a total of 7 days of therapy. (3) Acute on chronic right-sided congestive heart failure: echo 08/2020 with RV systolic dysfunction and severe pulm HTN. significant valvular disease as well (MR, TR). Copious diuresis this entire stay and significant fluid weight loss. Continue IV Bumex daily while hospitalized. Switch to oral dosing at discharge. (4) COPD (chronic obstructive pulmonary disease): with exacerbation on admission. Now resolved. Continue prednisone taper. Continue inhaler therapy. (5) Acute on chronic diastolic (congestive) heart failure: Continue Bumex diuresis. Continue medical management. Monitor intake and output. (6) Encephalopathy: Metabolic. Resolved. Cont to treat previously elevated ammonia levels with lactulose. (7) History of COVID-19: Diagnosed with COVID-19 08/15/20. Repeat PCR COVID testing on 10/07 was positive. Negative influenza A/B and RSV testing on admission. However, cleared isolation precautions. Has b/l pneumonia but not active COVID (8) IDDM (insulin dependent diabetes mellitus): A1c was 7.2% in 08/2020. labile/fragile. Lantus down titrated this admission. ADA diet. Sliding scale coverage. (9) Anemia: H/H acceptable / stable (10) Atrial fibrillation and flutter: coumadin daily with daily INR cont BB remains in NSR (11) Bipolar disorder: Appreciate psych recommendations thorazine at HS trazodone HS (12) CKD (chronic kidney disease), stage III: Baseline Cr. ~1.5 - 2.0. Cr now stable (13) Pulmonary hypertension: severe on echo 08/2020. Suspected chronic cor pulmonale. (14) Stroke: 07/2020 - LEFT medial frontal lobe stroke, hospitalized at [facility] [place]. [place] to be cardioembolic from a.fib. Anticoagulation started during that admission. (15) DVT prophylaxis: coumadin Disposition: discharge to [facility] today, October 19 Total Time Total Time Spent Total Time Spent (In Minutes): 35 minutes Total Time Includes: Examination of the Patient, Discharge Planning and Medication Reconciliation Discharge Plan Discharge Items Reason For Visit: SOB, HYPOXIA Medications and DC Order Prescriptions: No Action cholecalciferol (vitamin D3) 50 mcg (2,000 unit) capsule 50 mcg PO QAM RF: 0 ferrous fumarate 325 mg (106 mg iron) tablet 325 mg PO BID RF: 0 lidocaine 5 % adhesive patch,medicated 1 patch topical DAILY RF: 0 magnesium hydroxide [Milk of Magnesia] 400 mg/5 mL suspension 30 ml PO DIRECTED PRN (Reason: Constipation) RF: 0 oxycodone 5 mg tablet 5 mg PO Q6H PRN (Reason: Pain) RF: 0 sodium bicarbonate 650 mg tablet 650 mg PO WM RF: 0 tizanidine 2 mg capsule 2 mg PO Q8H PRN (Reason: Muscle Spasm) RF: 0 ziprasidone HCl 20 mg capsule 20 mg PO BID RF: 0 insulin aspart U-100 [Novolog U-100 Insulin aspart] 100 unit/mL Solution 7 unit SUBCUT BID RF: 0 bumetanide [Bumex] 2 mg Tablet 2 mg PO QAM RF: 0 trazodone 50 mg Tablet 25 mg PO HS RF: 0 metoprolol succinate 50 mg Tablet Extended Release 24 Hr 50 mg PO BID RF: 0 chlorpromazine 100 mg Tablet 150 mg PO HS RF: 0 [employer] Renal Liquid See Rx Instructions .ROUTE .COMPLEX RF: 0 aspirin [Aspirin Low Dose] 81 mg Tablet,Delayed Release (Dr/Ec) 81 mg PO QAM RF: 0 warfarin 5 mg Tablet 7.5 mg PO 2XWK RF: 0 warfarin 5 mg Tablet 5 mg PO 5XWK RF: 0 nicotine 21 mg/24 hr Patch 24 Hour 1 patch TRANSDERMAL DAILY RF: 0 Lantus Solostar U-100 Insulin 100 unit/mL (3 mL) insulin pen 20 unit SUBCUT QAM RF: 0 Trelegy Ellipta 100-62.5-25 mcg blister with device 1 inh INHALATION DAILY RF: 0 acetaminophen 325 mg Tablet 650 mg PO Q6H MDD 3 GMS APAP/24 HOURS PRN (Reason: Fever Or Pain) RF: 0 bisacodyl [Dulcolax (bisacodyl)] 10 mg Suppository 10 mg RI DIRECTED PRN (Reason: Constipation) RF: 0 Fleet Enema 19-7 gram/118 mL Enema 118 ml RI DIRECTED PRN (Reason: Constipation) RF: 0 lorazepam 1 mg Tablet 1 mg PO BID PRN (Reason: Anxiety/Restlessness) RF: 0 Combivent Respimat 20-100 mcg/actuation Mist 1 puff INHALATION Q6H PRN (Reason: Shortness Of Breath) RF: 0 Admission Data Admit Date/Time: 10/07/20 19:47 Attending Provider: Dipak Champagne Admit Provider: Gracie Esteves Primary Care Provider: Omega Umaña Other Providers: Cristiano Carbajal ; Deepika Gomes Coding Level of Care Code D/C Day Management >30 mins Diagnoses Acute respiratory failure with hypoxia and hypercapnia J96.01; J96.02 Bilateral pneumonia J18.9 Pneumonia type: due to unspecified organism Lung location: unspecified part of lung Acute on chronic right-sided congestive heart failure I50.813 COPD (chronic obstructive pulmonary disease) J44.1 COPD type: COPD with acute exacerbation Acute on chronic diastolic (congestive) heart failure I50.33 Encephalopathy G93.40 History of COVID-19 Z86.16 IDDM (insulin dependent diabetes mellitus) Anemia D64.9 Anemia type: unspecified type Atrial fibrillation and flutter I48.91; I48.92 Bipolar disorder F31.9 Active/Remission status: currently active Psychotic features: without psychotic features CKD (chronic kidney disease), stage III N18.30 Chronic kidney disease stage 3 subtype: unspecified whether 3a or 3b Pulmonary hypertension I27.20 Stroke I63.9 DVT prophylaxis Z29.9
[2020-10-19] MEDS ORDERED: hydrALAZINE 10 MG TAB PO SCH (14:00)
[2020-10-19] MEDS ORDERED: POTASSIUM CHLORIDE 10 MEQ TABCR PO SCH (21:00)
== END 2020-10-19 15:27 | DRG 291 ==
LOC: ED 13:43 → 2S 19:47 → SUATTDRO 19:47 → 2S 20:22

== ENCOUNTER 2021-01-25 14:11 | Inpatient (IN) ==
[2021-01-25] MEDS ORDERED: fentaNYL citrate 100 MCG/2 ML VIAL IV STA (15:23)
[2021-01-25] MEDS ORDERED: ACETAMINOPHEN 1,000 MG/100 ML VIAL IV STA (15:23)
[2021-01-25 15:31] LABS: Basophils # (auto) 0.03 K/uL (0-0.2); Basophils % (auto) 0.5 %; Eosinophils % (auto) 3.1 %; Hematocrit (blood only) 25.4 % (37-47); Immature Granulocytes # (auto) 0.01 K/uL (0.00-0.02); Immature Granulocytes % (auto) 0.2 %; Lymphocytes # (auto) 0.78 K/uL (1.2-3.4); Mean Corpuscular Hemoglobin 28.9 pg (25-34); Mean Corpuscular Hgb Conc 31.5 g/dL (32-36); Mean Corpuscular Volume 91.7 fL (80-100); Mean Platelet Volume 8.9 fL (7.4-10.4); Monocytes # (auto) 0.16 K/uL (0.11-0.59); Monocytes % (auto) 2.5 %; Neutrophils # (auto) 5.31 K/uL (1.4-6.5); Neutrophils % (auto) 81.7 %; Platelet Count 294 K/uL (130-400); RDW Coefficient of Variation 15.6 % (11.5-14.5); RDW Standard Deviation 52.6 fL (36.4-46.3); Red Blood Count 2.77 M/uL (4.2-5.4); White Blood Count 6.49 K/uL (4.8-10.8)
[2021-01-25 15:39] LABS: Alanine Aminotransferase 13 U/L (12-78); Albumin Level 2.2 gm/dl (3.4-5.0); Aspartate Aminotransferase 14 U/L (15-37); BUN Creatinine Ratio 15.7 (10-20); Bilirubin Direct 0.3 mg/dl (0-0.2); Blood Urea Nitrogen 69 mg/dl (7-18); Calcium 8.1 mg/dl (8.5-10.1); Carbon Dioxide 27 mmol/L (21-32); Chloride 93 mmol/L (98-107); Creatinine Clr Calc Pharmacy 15.6 ml/min; Est GFR (Non-African American) 10.3 ml/min; Glucose 90 mg/dl (70-99); Lipase 52 U/L (73-393); Magnesium 2.4 mg/dl (1.8-2.4); Potassium 5.2 mmol/L (3.5-5.1); Sodium 128 mmol/L (136-145)
[2021-01-25 15:42] LABS: Albumin Globulin Ratio 0.4 (0.9-2); Alkaline Phosphatase 176 U/L (45-117); Bilirubin,Total 0.3 mg/dl (0.2-1); Globulin 5.8 gm/dl (2.5-4.0); Phosphorus 6.9 mg/dl (2.5-4.9); Troponin I < 0.015 ng/ml (0-0.045)
[2021-01-25 15:55] LABS: Base Excess VBG 0.5 mEq/L; Oxygen Saturation VBG 64.8 %; pH VBG 7.35 (7.36-7.41)
--- NOTE | 2021-01-25 15:56 | XRay Report ---
XR chest 1V portable CLINICAL HISTORY: Atypical chest pain COMPARISON STUDY: 10/16/2020 FINDINGS: The heart is mildly enlarged. There is elevation of interstitium consistent with congestive failure/fluid overload. There is a right pleural effusion and probable trace left pleural effusion. There are right lower lobe airspace opacities, focal edema versus a superimposed infectious/inflammat ory process[ IMPRESSION: 1. Cardiomegaly and radiographic evidence of congestive failure/fluid overload with mild interstitial edema 2. Small right pleural effusion and trace left pleural effusion 3. Hazy right basilar opacities, focal edema versus a superimposed infectious/inflammatory process. ACT 112: Negative or not required by law. Electronically signed by: Lowell Estrada M.D. 01/25/2021 3:55 PM
[2021-01-25 16:14] LABS: Appearance Urine Cloudy (Clear); Bilirubin Urine Negative (Negative); Blood Urine 3+ (Negative); Color Urine Yellow; Glucose Urine UA Negative (Negative); Ketones Urine Negative (Negative); Leukocyte Esterase Urine 3+ (Negative); Nitrite Urine Negative (Negative); Protein Urine 3+ (Negative); Urobilinogen Urine Negative (Negative)
[2021-01-25 16:16] LABS: INR 3.2 (0.9-1.1)
[2021-01-25 16:18] LABS: Partial Thromboplastin Time 53.4 Seconds (21.0-31.0)
--- NOTE | 2021-01-25 16:27 | Emergency Department Note ---
Impression & Plan Acute on chronic renal failure, Hyponatremia, Chronic respiratory failure, UTI (urinary tract infection), Chronic anemia ED Provider Note NAME: SYDNI HERNANDEZ AGE: 60 SEX: F ARRIVES VIA: Ambulance INFORMANT: Patient, ED PROVIDER(S): Kenny Talley MD CHIEF COMPLAINT: Referred. Renal failure, anemia. PLAN: Disposition: Admit MEDICAL DECISION MAKING: The patient is a pleasant 60-year-old woman with a complicated past medical history of atrial fibrillation, anemia, CKD, HTN, CVA, COVID-19 infection August 2020, IDDM, diastolic CHF, bipolar disorder, and right BKA since emergency department from her snf facility at [facility] for ongoing anemia and progressive worsening renal function in setting of CKD. Hemoglobin was 7.5 yesterday though today is 8.0 in the setting of recent baseline since November of 7.8-9.0. Creatinine was 4.2 yesterday and is 4.4 today and has ranged 3.9-4.4 in the past week. Prior to this the patient's baseline creatinine appears to have ranged from 2-3 approximately. The patient denies any fevers, chills, cough, congestion. She reports chronic back pain that is not new. Review of nephrology note from yesterday describes the patient has not been improving despite outpatient treatment and feels admission is warranted for further treatment with IV fluids and possibly transitioning to dialysis if needed. On arrival patient is chronically ill-appearing but no acute distress, afebrile with stable vital signs. She is her baseline 2.5 L nasal cannula. Her abdomen is nontender. She has 1+ left lower extremity edema. Right BKA. EKG without overt acute ischemia or peaked T waves. Chest x-ray with pleural effusions and interstitial edema. WBC and platelets within normal limits. H/H 8.0/25.4 within prior range of recent values. VBG is unremarkable with pH of 7.35. Creatinine is 4.4 with BUN of 69. Sodium is 128 likely related to hypervolemia. Potassium 5.2. LFTs without significant abnormality. Troponin negative/undetectable. CT abdomen pelvis demonstrates evidence of cystitis and otherwise additional evidence of hypervolemia with bilateral pleural effusions with pne umonia/pneumonitis not excluded. Note is made of contracted gallbladder and bladder wall edema however the patient has no upper abdominal tenderness and bilirubin is normal. The patient is making urine. UA is suspicious for infection and so blood cultures were drawn and ordered initially for ceftriaxone. No emergent indication for hemodialysis at this time. Given the patient's failed outpatient management of her worsening renal function in setting of UTI reasonable to admit the patient for further management. Case was discussed with Dr. Damian, [facility] hospitalist, who will evaluate the patient f or admission. Per admitting team, case d/w Dr. Gross, nephrology on-call. He is not familiar with this patient, however, per my description recommends neutral fluids, e.g. normosol, to avoid acidosis. He will be available for inpatient team consultation. Admitting team updated. Triage Nursing notes reviewed and agree them. Prior medical records reviewed Vital Signs: reviewed and remarkable for no significant abnormalities Differential diagnosis: Renal colic, UTI, appendicitis, diverticulitis, mesenteric ischemia, aortic pathology, infections, inflammatory bowel disease, PUD, biliary pathology, as well as other pathologies. ER treatment provided: See below. Diagnostics interpreted by me: ECG: NSR, 69 bpm, no ectopy, no overt ST elevation or depression. Cardiac Monitoring: An order for continuous cardiac monitoring was placed and demonstrated NSR, 69 bpm, no ectopy. Laboratory studies: See below Imaging studies: See below Consultation(s): Case was discussed with Dr. Damian, [facility] hospitalist, who will evaluate the patient for admission. Dr. Gross, Nephrology on-call. HPI: The patient is a pleasant 60-year-old woman with a complicated past medical history of atrial fibrillation, anemia, CKD, HTN, CVA, COVID-19 infection August 2020, IDDM, diastolic CHF, bipolar disorder, and right BKA since emergency department from her snf facility at [facility] for ongoing anemia and progressive worsening renal function in setting of CKD. Hemoglobin was 7.5 yesterday though today is 8.0 in the setting of recent baseline since November of 7.8-9.0. Creatinine was 4.2 yesterday and is 4.4 today and has ranged 3.9-4.4 in the past week. Prior to this the patient's baseline creatinine appears to have ranged from 2-3 approximately. The patient denies any fevers, chills, cough, congestion. She reports chronic back pain that is not new. Review of nephrology note from yesterday describes the patient has not been improving despite outpatient treatment and feels admission is warranted for further treatment with IV fluids and possibly transitioning to dialysis if needed. ROS: See above HPI for pertinent positives & negatives. A total of 10 systems reviewed and were otherwise negative. PAST MEDICAL HISTORY:See Below PAST SURGICAL HISTORY:See Below FAMILY HISTORY:See Below SOCIAL HISTORY:See Below HOME MEDICATIONS:See Below ALLERGIES:See Below VITALS:See Below PHYSICAL EXAMINATION: GENERAL: Awake, alert, chronically ill-appearing, in no distress, BMI 31.7. HENT: Normocephalic, atraumatic. Oropharynx unremarkable. EYES: Normal conjunctiva. Sclera non-icteric. NECK: Supple. No nuchal rigidity. FROM. No JVD. RESPIRATORY: Clear to auscultation. CARDIAC: Regular rate, normal rhythm. Extremities warm and well perfused. Pulses equal. ABDOMEN: Soft, non-distended. No tenderness to palpation. No rebound or guarding. No masses. RECTAL: Deferred. MUSCULOSKELETAL: Chest examination reveals no tenderness. The back is symmetrical on inspection without obvious abnormality. There is no CVA tenderness to palpation. No joint edema. LOWER EXTREMITIES: Calves are equal size bilaterally and non-tender. 1+ LLE edema. No discoloration. NEURO: Chronic LLE weakness 3/5 strength. No new focal sensory or motor deficits noted. SKIN: No rash or jaundice noted. Kenny Talley MD Past Med/Surg History Medical History Acute alteration in mental status Acute kidney injury Amputation of left great toe Anemia Benign essential hypertension delivery delivered Chronic renal insufficiency, stage IV (severe) CVA (cerebral vascular accident) Diabetic nephropathy Hypoglycemia Hypoxemia Insomnia Pneumonia due to 2019 novel coronavirus Vitamin D deficiency Surgical History Hx of right BKA Social History Smoking Status: Former smoker Tobacco Type: Cigarettes packs per day: 2; Years Smoked: 40; Cigarettes Per Day: 2 PPD; Smoking End Date: 2019; Second Hand Exposure: No; Tobacco Cessation Education Requested by Patient: No Hx Alcohol Use: No Hx Substance Use: No Preferred Language: Icelandic Communication Ability: Effective Directional Bore Operator Required: No Beliefs That Will Affect Care: None marital status: Unknown Current Living Situation: Personal Care Facility Current Living Situation Comment: [facility] current occupational status: unemployed and disabled 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 How many Children do You have: 2 Other Information That Helps Us Care for You: No Feels Safe at Home: Yes Safety Concerns: Feels Safe At This Time caffeine: Yes Dental Care, Regularly: No Assistive Devices: Oxygen - Continuous Allergies Allergies Allergy/AdvReac Type Severity Reaction Status Date / Time shellfish derived Allergy Unknown Unknown Verified 01/25/21 11:09 Home Meds Home Medications Medication Instructions Recorded Confirmed cholecalciferol (vitamin D3) 50 50 mcg PO QAM 08/03/20 01/25/21 mcg (2,000 unit) capsule lidocaine 5 % topical patch 1 patch TOPICAL DAILY 08/03/20 01/25/21 oxycodone 5 mg tablet 5 mg PO Q6H PRN 08/03/20 01/25/21 sodium bicarbonate 650 mg tablet 650 mg PO WM 08/03/20 01/25/21 ziprasidone HCl 20 mg capsule 20 mg PO BID 08/03/20 01/25/21 Fleet Enema 118 ml ND DIRECTED PRN 10/07/20 01/25/21 Trelegy Ellipta 1 inh INHALATION DAILY 10/07/20 01/25/21 acetaminophen 650 mg PO Q6H PRN MDD 3 GMS 10/07/20 01/25/21 APAP/24 HOURS aspirin [Aspirin Low Dose] 81 mg PO QAM 10/07/20 01/25/21 bisacodyl [Dulcolax (bisacodyl)] 10 mg ND DIRECTED PRN 10/07/20 01/25/21 chlorpromazine 150 mg PO HS 10/07/20 01/25/21 metoprolol succinate 50 mg PO BID 10/07/20 01/25/21 insulin aspart U-100 100 unit/mL 12 unit SUBCUT WM ml 01/10/21 01/25/21 subcutaneous solution insulin glargine 100 unit/mL (3 30 unit SUBCUT QAM ml 01/10/21 01/25/21 mL) subcutaneous pen omeprazole 20 mg capsule,delayed 20 mg PO DAILY 01/10/21 01/25/21 release bumetanide [Bumex] 1 mg PO BID 01/25/21 01/25/21 nicotine [Nicoderm CQ] 1 patch TRANSDERMAL UD 01/25/21 01/25/21 nicotine [Nicoderm] 1 patch TRANSDERMAL DAILY 01/25/21 01/25/21 polyethylene glycol 3350 17 g PO BID 01/25/21 01/25/21 potassium chloride [Klor-Con M10] 10 meq PO Q OTHER DAY 01/25/21 01/25/21 trazodone 50 mg tablet 50 mg PO HS tab 01/25/21 01/25/21 warfarin [Coumadin] 3 mg PO HS 01/25/21 01/25/21 Previous Rx's Medication Instructions Recorded hydralazine 10 mg PO TID #30 tab 10/19/20 lactulose 30 ml PO DAILY #120 ml 10/19/20 Results & Data (ED) Vital Signs Vital Signs - 24 hr 01/25/21 14:19 01/25/21 14:32 01/25/21 14:33 Temperature 36.9 C Temperature Source Oral Pulse Rate 68 69 69 Pulse Rate [Apical] Pulse Rate from SpO2 Sensor 69 69 Pulse Rhythm Regular Pulse Strength Normal Respiratory Rate 22 26 H 22 Respiratory Effort / Characteristics Non-Labored Respiratory Depth Normal Respiratory Pattern Regular Blood Pressure 126/104 H 126/104 H Blood Pressure [Right Arm] Blood Pressure Mean 111 111 Blood Pressure Mean [Right Arm] Blood Pressure Position Lying Pulse Oximetry 98 98 97 Oxygen Delivery Method Nasal Cannula Oxygen Flow Rate 2.5 Sepsis Recent Fever Within 48 Hours No Sepsis New/Unexplained Change in Mental Status No Sepsis Action Taken by Nursing No Action Required 01/25/21 14:40 01/25/21 14:50 01/25/21 15:00 Temperature Temperature Source Pulse Rate 68 67 67 Pulse Rate [Apical] Pulse Rate from SpO2 Sensor 68 67 67 Pulse Rhythm Pulse Strength Respiratory Rate 15 19 15 Respiratory Effort / Characteristics Respiratory Depth Respiratory Pattern Blood Pressure Blood Pressure [Right Arm] Blood Pressure Mean Blood Pressure Mean [Right Arm] Blood Pressure Position Pulse Oximetry 99 99 99 Oxygen Delivery Method Oxygen Flow Rate Sepsis Recent Fever Within 48 Hours Sepsis New/Unexplained Change in Mental Status Sepsis Action Taken by Nursing 01/25/21 15:10 01/25/21 15:20 01/25/21 15:25 Temperature Temperature Source Pulse Rate 67 67 66 Pulse Rate [Apical] 66 Pulse Rate from SpO2 Sensor 67 67 Pulse Rhythm Pulse Strength Respiratory Rate 14 14 20 Respiratory Effort / Characteristics Respiratory Depth Respiratory Pattern Blood Pressure Blood Pressure [Right Arm] Blood Pressure Mean Blood Pressure Mean [Right Arm] Blood Pressure Position Pulse Oximetry 98 99 99 Oxygen Delivery Method Nasal Cannula Oxygen Flow Rate 2.5 Sepsis Recent Fever Within 48 Hours Sepsis New/Unexplained Change in Mental Status Sepsis Action Taken by Nursing 01/25/21 15:30 01/25/21 15:40 01/25/21 15:50 Temperature Temperature Source Pulse Rate 67 66 66 Pulse Rate [Apical] Pulse Rate from SpO2 Sensor 66 Pulse Rhythm Pulse Strength Respiratory Rate 19 14 12 Respiratory Effort / Characteristics Respiratory Depth Respiratory Pattern Blood Pressure Blood Pressure [Right Arm] Blood Pressure Mean Blood Pressure Mean [Right Arm] Blood Pressure Position Pulse Oximetry 98 Oxygen Delivery Method Oxygen Flow Rate Sepsis Recent Fever Within 48 Hours Sepsis New/Unexplained Change in Mental Status Sepsis Action Taken by Nursing 01/25/21 16:00 01/25/21 16:19 01/25/21 16:20 Temperature Temperature Source Pulse Rate 66 67 67 Pulse Rate [Apical] Pulse Rate from SpO2 Sensor 66 67 Pulse Rhythm Pulse Strength Respiratory Rate 15 16 21 Respiratory Effort / Characteristics Respiratory Depth Respiratory Pattern Blood Pressure Blood Pressure [Right Arm] Blood Pressure Mean Blood Pressure Mean [Right Arm] Blood Pressure Position Pulse Oximetry 97 99 Oxygen Delivery Method Oxygen Flow Rate Sepsis Recent Fever Within 48 Hours Sepsis New/Unexplained Change in Mental Status Sepsis Action Taken by Nursing 01/25/21 16:30 01/25/21 16:40 01/25/21 16:50 Temperature Temperature Source Pulse Rate 66 66 65 Pulse Rate [Apical] Pulse Rate from SpO2 Sensor Pulse Rhythm Pulse Strength Respiratory Rate 12 20 21 Respiratory Effort / Characteristics Respiratory Depth Respiratory Pattern Blood Pressure Blood Pressure [Right Arm] Blood Pressure Mean Blood Pressure Mean [Right Arm] Blood Pressure Position Pulse Oximetry Oxygen Delivery Method Oxygen Flow Rate Sepsis Recent Fever Within 48 Hours Sepsis New/Unexplained Change in Mental Status Sepsis Action Taken by Nursing 01/25/21 17:00 01/25/21 17:10 01/25/21 17:21 Temperature Temperature Source Pulse Rate 65 65 Pulse Rate [Apical] Pulse Rate from SpO2 Sensor Pulse Rhythm Pulse Strength Respiratory Rate 15 18 Respiratory Effort / Characteristics Respiratory Depth Respiratory Pattern Blood Pressure Blood Pressure [Right Arm] 137/94 Blood Pressure Mean Blood Pressure Mean [Right Arm] 108 Blood Pressure Position Pulse Oximetry Oxygen Delivery Method Oxygen Flow Rate Sepsis Recent Fever Within 48 Hours Sepsis New/Unexplained Change in Mental Status Sepsis Action Taken by Nursing Laboratory Data Attestation: I reviewed the patient's lab results. Result diagrams: 01/25/21 14:26 01/25/21 14:26 Lab Results 01/25/21 01/25/21 01/25/21 Range/Units 14:26 14:26 15:29 WBC 6.49 (4.8-10.8) K/uL RBC 2.77 L (4.2-5.4) M/uL Hgb 8.0 L (12.0-16.0) g/dL Hct 25.4 L (37-47) % MCV 91.7 (80-100) fL MCH 28.9 (25-34) pg MCHC 31.5 L (32-36) g/dL RDW Std Deviation 52.6 H (36.4-46.3) fL RDW Coeff of Esa 15.6 H (11.5-14.5) % Plt Count 294 (130-400) K/uL MPV 8.9 (7.4-10.4) fL Immature Gran % (Auto) 0.2 % Neut % (Auto) 81.7 % Lymph % (Auto) 12.0 % [place] % (Auto) 2.5 % Eos % (Auto) 3.1 % Baso % (Auto) 0.5 % Neut # (Auto) 5.31 (1.4-6.5) K/uL Lymph # (Auto) 0.78 L (1.2-3.4) K/uL [place] # (Auto) 0.16 (0.11-0.59) K/uL Eos # (Auto) 0.20 (0-0.5) K/uL Baso # (Auto) 0.03 (0-0.2) K/uL Immature Gran # (Auto) 0.01 (0.00-0.02) K/uL PT 30.0 H (9.0-12.0) Seconds INR 3.2 H (0.9-1.1) APTT 53.4 H* (21.0-31.0) Seconds PTT Ratio 2.0 VBG pH (7.36-7.41) VBG pCO2 (38-50) mmHg VBG pO2 mmHg VBG HCO3 mmol/L VBG O2 Saturation % VBG Base Excess mEq/L Barometric Pressure mm/Hg Sodium 128 L (136-145) mmol/L Potassium 5.2 H (3.5-5.1) mmol/L Chloride 93 L (98-107) mmol/L Carbon Dioxide 27 (21-32) mmol/L Anion Gap 8.0 (3-11) BUN 69 H (7-18) mg/dl Creatinine 4.41 H (0.6-1.2) mg/dl Est Cr Clr Drug Dosing 15.6 ml/min Est GFR ( Amer) 12.0 ml/min Est GFR (Non-Af Amer) 10.3 ml/min BUN/Creatinine Ratio 15.7 (10-20) Glucose 90 (70-99) mg/dl Osmolality (280-300) mOsm/kg Lactate (0.4-2.0) mmol/L Calcium 8.1 L (8.5-10.1) mg/dl Phosphorus 6.9 H (2.5-4.9) mg/dl Magnesium 2.4 (1.8-2.4) mg/dl Total Bilirubin 0.3 (0.2-1) mg/dl Direct Bilirubin 0.3 H (0-0.2) mg/dl AST 14 L (15-37) U/L ALT 13 (12-78) U/L Alkaline Phosphatase 176 H (45-117) U/L Troponin I < 0.015 (0-0.045) ng/ml Total Protein 8.0 (6.4-8.2) gm/dl Albumin 2.2 L (3.4-5.0) gm/dl Globulin 5.8 H (2.5-4.0) gm/dl Albumin/Globulin Ratio 0.4 L (0.9-2) Lipase 52 L (73-393) U/L Urine Color Urine Appearance (Clear) Urine pH (4.5-7.5) Ur Specific [place] (1.000-1.030) Urine Protein (Negative) Urine Glucose (UA) (Negative) Urine Ketones (Negative) Urine Blood (Negative) Urine Nitrite (Negative) Urine Bilirubin (Negative) Urine Urobilinogen (Negative) Ur Leukocyte Esterase (Negative) Urine RBC (0-4) /hpf Urine WBC (0-5) /hpf Ur Epithelial Cells (0-5) /lpf Urine Bacteria (Negative) Urine Osmolality (500-800) mOsm/kg Ur Random Sodium mmol/L COVID-19 Eval Order SARS-CoV-2 (PCR) (Negative) 01/25/21 01/25/21 01/25/21 Range/Units 15:29 15:31 16:03 WBC (4.8-10.8) K/uL RBC (4.2-5.4) M/uL Hgb (12.0-16.0) g/dL Hct (37-47) % MCV (80-100) fL MCH (25-34) pg MCHC (32-36) g/dL RDW Std Deviation (36.4-46.3) fL RDW Coeff of Esa (11.5-14.5) % Plt Count (130-400) K/uL MPV (7.4-10.4) fL Immature Gran % (Auto) % Neut % (Auto) % Lymph % (Auto) % [place] % (Auto) % Eos % (Auto) % Baso % (Auto) % Neut # (Auto) (1.4-6.5) K/uL Lymph # (Auto) (1.2-3.4) K/uL [place] # (Auto) (0.11-0.59) K/uL Eos # (Auto) (0-0.5) K/uL Baso # (Auto) (0-0.2) K/uL Immature Gran # (Auto) (0.00-0.02) K/uL PT (9.0-12.0) Seconds INR (0.9-1.1) APTT (21.0-31.0) Seconds PTT Ratio VBG pH 7.35 L (7.36-7.41) VBG pCO2 49 (38-50) mmHg VBG pO2 28 mmHg VBG HCO3 27 mmol/L VBG O2 Saturation 64.8 % VBG Base Excess 0.5 mEq/L Barometric Pressure 729.1 mm/Hg Sodium (136-145) mmol/L Potassium (3.5-5.1) mmol/L Chloride (98-107) mmol/L Carbon Dioxide (21-32) mmol/L Anion Gap (3-11) BUN (7-18) mg/dl Creatinine (0.6-1.2) mg/dl Est Cr Clr Drug Dosing ml/min Est GFR ( Amer) ml/min Est GFR (Non-Af Amer) ml/min BUN/Creatinine Ratio (10-20) Glucose (70-99) mg/dl Osmolality 300 (280-300) mOsm/kg Lactate (0.4-2.0) mmol/L Calcium (8.5-10.1) mg/dl Phosphorus (2.5-4.9) mg/dl Magnesium (1.8-2.4) mg/dl Total Bilirubin (0.2-1) mg/dl Direct Bilirubin (0-0.2) mg/dl AST (15-37) U/L ALT (12-78) U/L Alkaline Phosphatase (45-117) U/L Troponin I (0-0.045) ng/ml Total Protein (6.4-8.2) gm/dl Albumin (3.4-5.0) gm/dl Globulin (2.5-4.0) gm/dl Albumin/Globulin Ratio (0.9-2) Lipase (73-393) U/L Urine Color Yellow Urine Appearance Cloudy A (Clear) Urine pH 7.0 (4.5-7.5) Ur Specific [place] 1.020 (1.000-1.030) Urine Protein 3+ H (Negative) Urine Glucose (UA) Negative (Negative) Urine Ketones Negative (Negative) Urine Blood 3+ H (Negative) Urine Nitrite Negative (Negative) Urine Bilirubin Negative (Negative) Urine Urobilinogen Negative (Negative) Ur Leukocyte Esterase 3+ H (Negative) Urine RBC 10-30 H (0-4) /hpf Urine WBC >30 H (0-5) /hpf Ur Epithelial Cells 0-5 (0-5) /lpf Urine Bacteria 4+ H (Negative) Urine Osmolality (500-800) mOsm/kg Ur Random Sodium mmol/L COVID-19 Eval Order SARS-CoV-2 (PCR) (Negative) 01/25/21 01/25/21 01/25/21 Range/Units 16:03 16:03 17:05 WBC (4.8-10.8) K/uL RBC (4.2-5.4) M/uL Hgb (12.0-16.0) g/dL Hct (37-47) % MCV (80-100) fL MCH (25-34) pg MCHC (32-36) g/dL RDW Std Deviation (36.4-46.3) fL RDW Coeff of Esa (11.5-14.5) % Plt Count (130-400) K/uL MPV (7.4-10.4) fL Immature Gran % (Auto) % Neut % (Auto) % Lymph % (Auto) % [place] % (Auto) % Eos % (Auto) % Baso % (Auto) % Neut # (Auto) (1.4-6.5) K/uL Lymph # (Auto) (1.2-3.4) K/uL [place] # (Auto) (0.11-0.59) K/uL Eos # (Auto) (0-0.5) K/uL Baso # (Auto) (0-0.2) K/uL Immature Gran # (Auto) (0.00-0.02) K/uL PT (9.0-12.0) Seconds INR (0.9-1.1) APTT (21.0-31.0) Seconds PTT Ratio VBG pH (7.36-7.41) VBG pCO2 (38-50) mmHg VBG pO2 mmHg VBG HCO3 mmol/L VBG O2 Saturation % VBG Base Excess mEq/L Barometric Pressure mm/Hg Sodium (136-145) mmol/L Potassium (3.5-5.1) mmol/L Chloride (98-107) mmol/L Carbon Dioxide (21-32) mmol/L Anion Gap (3-11) BUN (7-18) mg/dl Creatinine (0.6-1.2) mg/dl Est Cr Clr Drug Dosing ml/min Est GFR ( Amer) ml/min Est GFR (Non-Af Amer) ml/min BUN/Creatinine Ratio (10-20) Glucose (70-99) mg/dl Osmolality (280-300) mOsm/kg Lactate (0.4-2.0) mmol/L Calcium (8.5-10.1) mg/dl Phosphorus (2.5-4.9) mg/dl Magnesium (1.8-2.4) mg/dl Total Bilirubin (0.2-1) mg/dl Direct Bilirubin (0-0.2) mg/dl AST (15-37) U/L ALT (12-78) U/L Alkaline Phosphatase (45-117) U/L Troponin I (0-0.045) ng/ml Total Protein (6.4-8.2) gm/dl Albumin (3.4-5.0) gm/dl Globulin (2.5-4.0) gm/dl Albumin/Globulin Ratio (0.9-2) Lipase (73-393) U/L Urine Color Urine Appearance (Clear) Urine pH (4.5-7.5) Ur Specific [place] (1.000-1.030) Urine Protein (Negative) Urine Glucose (UA) (Negative) Urine Ketones (Negative) Urine Blood (Negative) Urine Nitrite (Negative) Urine Bilirubin (Negative) Urine Urobilinogen (Negative) Ur Leukocyte Esterase (Negative) Urine RBC (0-4) /hpf Urine WBC (0-5) /hpf Ur Epithelial Cells (0-5) /lpf Urine Bacteria (Negative) Urine Osmolality 296 L (500-800) mOsm/kg Ur Random Sodium 39 mmol/L COVID-19 Eval Order Covid19 at [facility] SARS-CoV-2 (PCR) (Negative) 01/25/21 01/25/21 Range/Units 17:05 17:48 WBC (4.8-10.8) K/uL RBC (4.2-5.4) M/uL Hgb (12.0-16.0) g/dL Hct (37-47) % MCV (80-100) fL MCH (25-34) pg MCHC (32-36) g/dL RDW Std Deviation (36.4-46.3) fL RDW Coeff of Esa (11.5-14.5) % Plt Count (130-400) K/uL MPV (7.4-10.4) fL Immature Gran % (Auto) % Neut % (Auto) % Lymph % (Auto) % [place] % (Auto) % Eos % (Auto) % Baso % (Auto) % Neut # (Auto) (1.4-6.5) K/uL Lymph # (Auto) (1.2-3.4) K/uL [place] # (Auto) (0.11-0.59) K/uL Eos # (Auto) (0-0.5) K/uL Baso # (Auto) (0-0.2) K/uL Immature Gran # (Auto) (0.00-0.02) K/uL PT (9.0-12.0) Seconds INR (0.9-1.1) APTT (21.0-31.0) Seconds PTT Ratio VBG pH (7.36-7.41) VBG pCO2 (38-50) mmHg VBG pO2 mmHg VBG HCO3 mmol/L VBG O2 Saturation % VBG Base Excess mEq/L Barometric Pressure mm/Hg Sodium (136-145) mmol/L Potassium (3.5-5.1) mmol/L Chloride (98-107) mmol/L Carbon Dioxide (21-32) mmol/L Anion Gap (3-11) BUN (7-18) mg/dl Creatinine (0.6-1.2) mg/dl Est Cr Clr Drug Dosing ml/min Est GFR ( Amer) ml/min Est GFR (Non-Af Amer) ml/min BUN/Creatinine Ratio (10-20) Glucose (70-99) mg/dl Osmolality (280-300) mOsm/kg Lactate 1.0 (0.4-2.0) mmol/L Calcium (8.5-10.1) mg/dl Phosphorus (2.5-4.9) mg/dl Magnesium (1.8-2.4) mg/dl Total Bilirubin (0.2-1) mg/dl Direct Bilirubin (0-0.2) mg/dl AST (15-37) U/L ALT (12-78) U/L Alkaline Phosphatase (45-117) U/L Troponin I (0-0.045) ng/ml Total Protein (6.4-8.2) gm/dl Albumin (3.4-5.0) gm/dl Globulin (2.5-4.0) gm/dl Albumin/Globulin Ratio (0.9-2) Lipase (73-393) U/L Urine Color Urine Appearance (Clear) Urine pH (4.5-7.5) Ur Specific [place] (1.000-1.030) Urine Protein (Negative) Urine Glucose (UA) (Negative) Urine Ketones (Negative) Urine Blood (Negative) Urine Nitrite (Negative) Urine Bilirubin (Negative) Urine Urobilinogen (Negative) Ur Leukocyte Esterase (Negative) Urine RBC (0-4) /hpf Urine WBC (0-5) /hpf Ur Epithelial Cells (0-5) /lpf Urine Bacteria (Negative) Urine Osmolality (500-800) mOsm/kg Ur Random Sodium mmol/L COVID-19 Eval Order SARS-CoV-2 (PCR) NEGATIVE (Negative) Administered Medications Chlorpromazine HCl (Chlorpromazine Hcl 25 Mg Tab) 150 mg PO HS SANDIP Stop: 02/24/21 20:59 Last Admin: 01/25/21 21:23 Dose: 150 mg Documented by: [id number] Hydralazine HCl (Hydralazine 10 Mg Tab) 10 mg PO TID SANDIP Stop: 02/24/21 20:59 Last Admin: 01/25/21 21:24 Dose: 10 mg Documented by: [id number] Parenteral Electrolytes (Normosol-R) 1,000 mls @ 100 mls/hr IV .Q10H [facility] Stop: 01/26/21 06:19 Last Admin: 01/25/21 20:54 Dose: 100 mls/hr Documented by: [id number] Insulin Aspart (Insulin Aspart 100 Units/Ml 3 Ml Pen) 0 units SC ACHS SANDIP Stop: 02/24/21 20:59 Last Admin: 01/25/21 21:30 Dose: 2 units Documented by: [id number] Cosigned by: [id number] Insulin Glargine (Insulin Glargine Solostar 100 Units/Ml 3 Ml Pen) 10 units SC BID [facility] Stop: 02/24/21 20:59 Last Admin: 01/25/21 21:29 Dose: 10 units Documented by: [id number] Cosigned by: [id number] Metoprolol Succinate (Metoprolol Succ 50mg Ext Rel Tab) 50 mg PO BID [facility] Stop: 02/24/21 20:59 Last Admin: 01/25/21 21:23 Dose: 50 mg Documented by: [id number] Miscellaneous (Remove Lidoderm Patch) 1 ea N/A DAILY@2100 SANDIP Stop: 02/24/21 20:59 Last Admin: 01/25/21 21:29 Dose: 1 ea Documented by: [id number] Oxycodone HCl (Oxycodone Hcl Ir 5 Mg Tab (Immediate Release)) 5 mg PO Q6H PRN PRN Reason: Pain Stop: 02/08/21 20:19 Last Admin: 01/25/21 20:54 Dose: 5 mg Documented by: [id number] Polyethylene Glycol (Polyethylene (Miralax) 17 Gm Pack) 17 gm PO BID SANDIP Stop: 02/24/21 20:59 Last Admin: 01/25/21 21:24 Dose: 17 gm Documented by: [id number] Sodium Bicarbonate (Sodium Bicarbonate 650 Mg Tab) 650 mg PO TIDM SANDIP Stop: 02/24/21 20:59 Last Admin: 01/25/21 21:43 Dose: 650 mg Documented by: [id number] Trazodone HCl (Trazodone Hcl 50 Mg Tab) 50 mg PO HS SANDIP Stop: 02/24/21 20:59 Last Admin: 01/25/21 21:23 Dose: 50 mg Documented by: [id number] Warfarin Sodium (Warfarin Sod 3 Mg Tab) 3 mg PO DAILY@1600 SANDIP Stop: 02/24/21 20:59 Last Admin: 01/25/21 21:23 Dose: 3 mg Documented by: [id number] Ziprasidone (Ziprasidone Hcl 20 Mg Cap) 20 mg PO BID SANDIP Stop: 02/24/21 20:59 Last Admin: 01/25/21 21:23 Dose: 20 mg Documented by: [id number] Discontinued Medications Fentanyl Citrate (Fentanyl Citrate 100 Mcg/2 Ml Vial) 25 mcg IV NOW STA Stop: 01/25/21 15:24 Last Admin: 01/25/21 15:30 Dose: 25 mcg Documented by: [id number] Acetaminophen (Ofirmev) 1,000 mg in 100 mls @ 400 mls/hr IV NOW STA Stop: 01/25/21 15:37 Last Infusion: 01/25/21 15:48 Dose: 0 mls/hr Documented by: [id number] Admin: 01/25/21 15:30 Dose: 400 mls/hr Documented by: [id number] Ceftriaxone Sodium (Rocephin) 2,000 mg in 70 mls @ 140 mls/hr IV NOW STA Stop: 01/25/21 17:32 Last Infusion: 01/25/21 18:40 Dose: 0 mls/hr Documented by: [id number] Admin: 01/25/21 18:05 Dose: 140 mls/hr Documented by: [id number] Imaging Data Radiologist's Impression: Abdomen/Pelvis CT 01/25/21 15:20 CT SCAN OF THE ABDOMEN AND PELVIS WITHOUT IV CONTRAST CLINICAL HISTORY: Acute on chronic renal insufficiency. COMPARISON STUDY: Abdominal CT dated 10/07/2020. TECHNIQUE: CT scan of the abdomen and pelvis is performed from the lung bases to the proximal femora. Images are reviewed in the axial, sagittal, and coronal planes. IV contrast was not administered for this examination. A dose lowering technique was utilized adhering to the principles of ALARA. CT DOSE: 1071.22 mGy.cm FINDINGS: Lung bases: The heart is top normal in size noting trace pericardial effusion. There are small to moderate pleural effusions, right larger than left with bibasilar consolidation. Scattered calcified granulomas are seen at both lung bases. Liver: The unenhanced liver is normal in size, contour, and attenuation. There is no intrahepatic biliary ductal dilatation. Gallbladder: The gallbladder is contracted. Gallbladder wall edema is nonspecific and similar to previous. Spleen: Normal in size and attenuation. Pancreas: The unenhanced pancreas is atrophic and grossly unremarkable. Adrenal glands: Unremarkable. Kidneys: The unenhanced kidneys demonstrate cortical atrophy and are without hydronephrosis. There are numerous renovascular calcifications. No definite renal calculi are identified. Small renal cysts measure up to 1.4 cm. Abdominal vasculature: The abdominal aorta is normal in course and caliber noting advanced atherosclerotic calcification. Bowel: There is rectosigmoid fecal retention and mild to moderate constipation. No bowel obstruction is seen. There are scattered colonic diverticula without CT evidence of acute diverticulitis. The appendix is well-visualized and normal. Peritoneum: There is no intraperitoneal free air or abdominal ascites. A midline surgical scar is noted. Lymphadenopathy: Shotty retroperitoneal lymph nodes are nonspecific and likely reactive. Pelvic viscera: The bladder is decompressed and a Melchor catheter. The bladder wall appears markedly thickened and there is pericystic inflammation. Intr aluminal gas is nonspecific. The uterus and adnexa are normal as visualized. A small to moderate volume of free fluid is noted in the cul-de-sac. Skeletal structures: The skeletal structures are heterogeneously osteopenic. There is [id number] lumbosacral spondylosis. No lytic or blastic lesions are seen. Soft tissues: There is body wall edema. IMPRESSION: 1. The kidneys are atrophic and without hydronephrosis. 2. Although decompressed around a Melchor catheter, the bladder wall appears markedly thickened and there is pericystic inflammation. Correlate with clinical findings and urinalysis. 3. There is rectosigmoid fecal retention and mild to moderate constipation. 4. Right larger than left pleural effusions with bibasilar consolidation. Correlate clinically for evidence of pneumonia/aspiration pneumonitis. Radiographic follow-up to resolution is recommended. 5. There is a small to moderate volume of nonspecific free fluid in the cul-de-sac. 6. The gallbladder is contracted. Gallbladder wall edema is nonspecific and may be related to volume status or adjacent hepatocellular disease. This is similar to previous and there is no evidence of acute cholecystitis. 7. Body wall edema. 8. Additional findings as above. ACT 112: Negative or not required by law. Electronically signed by: Phil Alfaro M.D. 01/25/2021 4:27 PM Chest X-Ray 01/25/21 15:20 XR chest 1V portable CLINICAL HISTORY: Atypical chest pain COMPARISON STUDY: 10/16/2020 FINDINGS: The heart is mildly enlarged. There is elevation of interstitium consistent with congestive failure/fluid overload. There is a right pleural effusion and probable trace left pleural effusion. There are right lower lobe airspace opacities, focal edema versus a superimposed infectious/inflammatory process[ IMPRESSION: 1. Cardiomegaly and radiographic evidence of congestive failure/fluid overload with mild interstitial edema 2. Small right pleural effusion and trace left pleural effusion 3. Hazy right basilar opacities, focal edema versus a superimposed infectious/inflammatory process. ACT 112: Negative or not required by law. Electronically signed by: Lowell Estrada M.D. 01/25/2021 3:55 PM Discharge Plan Visit Data Chief Complaint: Abnormal Labs/Diagnostic Testing Stated Complaint: ABNORMAL LAB ED Provider: Kenny Talley Discharge Problem: Acute on chronic renal failure, Hyponatremia, Chronic respiratory failure, UTI (urinary tract infection), Chronic anemia Patient Disposition: Admitted As Inpatient Discharge Instructions Interventions: ED Discharge Assessment Last Done: 01/25/21 20:04 Discharge Problem: Acute on chronic renal failure Qualifiers: Acute renal failure type: unspecified Chronic kidney disease stage: unspecified stage Qualified Code(s): N17.9 - Acute kidney failure, unspecified Chronic respiratory failure Qualifiers: Respiratory failure complication: hypoxia Qualified Code(s): J96.11 - Chronic r espiratory failure with hypoxia UTI (urinary tract infection) Qualifiers: Urinary tract infection type: site unspecified Hematuria presence: without hematuria Qualified Code(s): N39.0 - Urinary tract infection, site not specified
--- NOTE | 2021-01-25 16:28 | CT Scan Report ---
CT SCAN OF THE ABDOMEN AND PELVIS WITHOUT IV CONTRAST CLINICAL HISTORY: Acute on chronic renal insufficiency. COMPARISON STUDY: Abdominal CT dated 10/07/2020. TECHNIQUE: CT scan of the abdomen and pelvis is performed from the lung bases to the proximal femora. Images are reviewed in the axial, sagittal, and coronal planes. IV contrast was not administered for this examination. A dose lowering technique was utilized adhering to the principles of ALARA. CT DOSE: 1071.22 mGy.cm FINDINGS: Lung bases: The heart is top normal in size noting trace pericardial effusion. There are small to mod erate pleural effusions, right larger than left with bibasilar consolidation. Scattered calcified gra nulomas are seen at both lung bases. Liver: The unenhanced liver is normal in size, contour, and attenuation. There is no intrahepatic franny iary ductal dilatation. Gallbladder: The gallbladder is contracted. Gallbladder wall edema is nonspecific and similar to prev ious. Spleen: Normal in size and attenuation. Pancreas: The unenhanced pancreas is atrophic and grossly unremarkable. Adrenal glands: Unremarkable. Kidneys: The unenhanced kidneys demonstrate cortical atrophy and are without hydronephrosis. There ar e numerous renovascular calcifications. No definite renal calculi are identified. Small renal cysts m easure up to 1.4 cm. Abdominal vasculature: The abdominal aorta is normal in course and caliber noting advanced atheroscle rotic calcification. Bowel: There is rectosigmoid fecal retention and mild to moderate constipation. No bowel obstruction is seen. There are scattered colonic diverticula without CT evidence of acute diverticulitis. The aamir endix is well-visualized and normal. Peritoneum: There is no intraperitoneal free air or abdominal ascites. A midline surgical scar is not ed. Lymphadenopathy: Shotty retroperitoneal lymph nodes are nonspecific and likely reactive. Pelvic viscera: The bladder is decompressed and a Melchor catheter. The bladder wall appears markedly t hickened and there is pericystic inflammation. Intraluminal gas is nonspecific. The uterus and adnexa are normal as visualized. A small to moderate volume of free fluid is noted in the cul-de-sac. Skeletal structures: The skeletal structures are heterogeneously osteopenic. There is alfm-xq-rpoxjic e lumbosacral spondylosis. No lytic or blastic lesions are seen. Soft tissues: There is body wall edema. IMPRESSION: 1. The kidneys are atrophic and without hydronephrosis. 2. Although decompressed around a Melchor catheter, the bladder wall appears markedly thickened and the re is pericystic inflammation. Correlate with clinical findings and urinalysis. 3. There is rectosigmoid fecal retention and mild to moderate constipation. 4. Right larger than left pleural effusions with bibasilar consolidation. Correlate clinically for ev idence of pneumonia/aspiration pneumonitis. Radiographic follow-up to resolution is recommended. 5. There is a small to moderate volume of nonspecific free fluid in the cul-de-sac. 6. The gallbladder is contracted. Gallbladder wall edema is nonspecific and may be related to volume status or adjacent hepatocellular disease. This is similar to previous and there is no evidence of ac rg cholecystitis. 7. Body wall edema. 8. Additional findings as above. ACT 112: Negative or not required by law. Electronically signed by: Phil Alfaro M.D. 01/25/2021 4:27 PM
[2021-01-25 16:58] LABS: Epithelial Cell Urine 0-5 /lpf (0-5); WBC Urine >30 /hpf (0-5)
[2021-01-25 17:00] LABS: Bacteria Urine 4+ (Negative)
[2021-01-25] MEDS ORDERED: cefTRIAXone SODIUM 2,000 MG/70 ML BAG IV STA (17:03)
--- NOTE | 2021-01-25 19:08 | History & Physical Report ---
Date of Service January 25, 2021 Assessment & Plan Admission and Anticipated Discharge Date Admission Date: 60 yo female with PMHx of atrial fibrillation, anemia, CKD, HTN, CVA, IDDM, HFpEF, bipolar disorder, and right BKA admitted for worsening kidney function found to have concern for pna and uti on labs and imaging Elevated Cr. to 4.41 from baseline1.8-2.4 case discussed from the ER with Dr. Gross - Consulted nephrology - gentle fluid hydration with normosol 100ml/hr; continue to monitor fluid status - medications dosed for cr. clearance - continue to follow cr, and potassium UTI UA with protein, blood, LCE, WBC currently asymptomatic previously with cee sensitive Klebsiella UTI on 08/15 - Ceftriaxone given in the ER - continue Cefepime - follow up urine culture Hospital associated pneumonia, concerning for aspiration; MRSA pna treated just over 90 days prior; with history of COPD and HF on baseline oxygen requirement CX with infiltrate on the right lower lung field concerning for pna, prior imaging on october 06 looks worse, but October 12 looks better than current xr MRSA nares ordered - Ceftriaxone given in the ER - ordered Cefepime - if MRSA returns positive will add Linezolid - follow up blood cultures Severe Protein-Calorie Malnutrition - Albumin of 2.0 - Consult dietary History of Atrial Fibrillation - Currently in NSR - Monitor on tele - Continue rate control with home metoprolol 50mg po BID IDDM - Continue Lantus 10U BID - ISS - Hypoglycemic protocol Hx of Bipolar Disorder and Anxiety - Continue home ziprasidone 20mg po BID, chlorpromazine 150mg po qhs, and trazodone 25mg po qhs Hx of Anemia - No current signs of bleeding - Hgb close to baseline at 8 - Monitor with AM CBC - Transfuse for Hgb < 7 Hx of Nicotine Dependence - Continue Nicoderm patch daily FENGI: Heart healthy, carb count, low sodium (<2g), and fluid restriction < 1200mL/day DVT Ppx: Anticoagulated on coumadin Dispo: Pmed/sug w/ tele Code status: Full code History of Present Illness Chief Complaint: abnormal labs Primary Care Provider: Omega Freemanelyn Jarrod is here after visiting her cattle tester Telma for her stage IV CKD secondary to diabetic nephropathy, baseline creatinine variable from 1.8- 2.4, with high-grade proteinuria. Normal renal ultrasound. Renal function continues to worsen and creatinine now up to 4.0-4.2 and GFR around 10 with repeated episodes of hyperkalemia, hyponatremia, and low hemoglobin along with a low blood pressure and low urine output. She was sent in for gentle fluid and monitoring. She was previously admitted and treated for MRSA pneumonia and discharged just over 90 days ago. She has had crackles on her lungs bilaterally at the facility she is coming from. She does not not any trouble breathing at baseline, she does not recall an aspiration event or any coughing with eating. She was eating a sandwich in the room when I saw her and her front tooth had just fallen out, and she may have swallowed the tooth. She has a past medical history of Bipolar, HFpEF, COPD, Anemia, and IDDM. She is taking Chlorpromazine, and Ziprazodone for her Bipolar, this was confirmed with [facility]. Allergies Allergy/AdvReac Type Severity Reaction Status Date / Time shellfish derived Allergy Unknown Unknown Verified 01/25/21 11:09 Home Medications Medication Instructions Recorded Confirmed Type cholecalciferol (vitamin D3) 50 50 mcg PO QAM 08/03/20 01/25/21 History mcg (2,000 unit) capsule lidocaine 5 % topical patch 1 patch TOPICAL DAILY 08/03/20 01/25/21 History oxycodone 5 mg tablet 5 mg PO Q6H PRN 08/03/20 01/25/21 History sodium bicarbonate 650 mg tablet 650 mg PO WM 08/03/20 01/25/21 History ziprasidone HCl 20 mg capsule 20 mg PO BID 08/03/20 01/25/21 History Fleet Enema 118 ml IL DIRECTED PRN 10/07/20 01/25/21 History Trelegy Ellipta 1 inh INHALATION DAILY 10/07/20 01/25/21 History acetaminophen 650 mg PO Q6H PRN MDD 3 GMS 10/07/20 01/25/21 History APAP/24 HOURS aspirin [Aspirin Low Dose] 81 mg PO QAM 10/07/20 01/25/21 History bisacodyl [Dulcolax (bisacodyl)] 10 mg IL DIRECTED PRN 10/07/20 01/25/21 History chlorpromazine 150 mg PO HS 10/07/20 01/25/21 History metoprolol succinate 50 mg PO BID 10/07/20 01/25/21 History hydralazine 10 mg PO TID #30 tab 10/19/20 01/25/21 Rx lactulose 30 ml PO DAILY #120 ml 10/19/20 01/25/21 Rx insulin aspart U-100 100 unit/mL 12 unit SUBCUT WM ml 01/10/21 01/25/21 History subcutaneous solution insulin glargine 100 unit/mL (3 30 unit SUBCUT QAM ml 01/10/21 01/25/21 History mL) subcutaneous pen omeprazole 20 mg capsule,delayed 20 mg PO DAILY 01/10/21 01/25/21 History release bumetanide [Bumex] 1 mg PO BID 01/25/21 01/25/21 History nicotine [Nicoderm CQ] 1 patch TRANSDERMAL UD 01/25/21 01/25/21 History nicotine [Nicoderm] 1 patch TRANSDERMAL DAILY 01/25/21 01/25/21 History polyethylene glycol 3350 17 g PO BID 01/25/21 01/25/21 History potassium chloride [Klor-Con M10] 10 meq PO Q OTHER DAY 01/25/21 01/25/21 History trazodone 50 mg tablet 50 mg PO HS tab 01/25/21 01/25/21 History warfarin [Coumadin] 3 mg PO HS 01/25/21 01/25/21 History Past Med/Surg History Medical History Acute alteration in mental status Acute kidney injury Amputation of left great toe Anemia Benign essential hypertension delivery delivered Chronic renal insufficiency, stage IV (severe) CVA (cerebral vascular accident) Diabetic nephropathy Hypoglycemia Hypoxemia Insomnia Pneumonia due to 2019 novel coronavirus Vitamin D deficiency Surgical History Hx of right BKA Social History Smoking Status: Former smoker Tobacco Type: Cigarettes packs per day: 2; Years Smoked: 40; Second Hand Exposure: No; Hx Alcohol Use: No Hx Substance Use: Yes Non-Prescribed Medications: Crack / Cocaine Last Used Substance: Unknown Last Used Substance Other:: 17 years ago Preferred Language: Austrian Communication Ability: Effective Wheel Worker Required: No marital status: Unknown Current Living Situation: Alone current occupational status: unemployed and disabled 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 How many Children do You have: 2 Feels Safe at Home: Yes caffeine: Yes Dental Care, Regularly: No Assistive Devices: None Review of Systems Review of Systems: Constitutional: denies fevers, chills, vomiting admits stable fatigue Head: denies trauma, headaches, confusion Neuro: denies syncope ENT: denies stuffiness, sneezing, sore throat Cardiac: denies chest pain, palpitations admits leg edema, orthopnea Pulm.: denies cough, shortness of breath GI: admits to diarrhea 2/2 miralax given due to narcotics : denies any dysuria, polyuria, urgency Physical Exam Constitutional: - lying in bed in NAD Eyes: - sclera icteric ENMT: Ears: no hearing impairment Nose: no external nose abnormality Billie th: no lip abnormality - incisor missing Neck: normal visual inspection Respiratory: coarse crackles heard bilaterally at the bases no wheezing no increased work of breathing able to speak in full sentences Cardiovascular: RRR, no murmur, no edema - 2+ pitting edema in lower extremity Gastrointestinal (Abdomen): Inspection/Auscultation: abdomen normal to inspection - bowel sounds present Skin: + jaundice Neurologic: no focal motor deficits Speech / Cognition: normal speech Psychiatric: A+Ox3, euthymic affect Results & Data Results & Data ([facility]) Vital Signs (Past 12 Hours) Vital Signs Temp Pulse Pulse Resp BP BP Pulse Ox 01/25/21 17:21 137/94 01/25/21 17:10 65 18 01/25/21 17:00 65 15 01/25/21 16:50 65 21 01/25/21 16:40 66 20 01/25/21 16:30 66 12 01/25/21 16:20 67 21 99 01/25/21 16:19 67 16 01/25/21 16:00 66 15 97 01/25/21 15:50 66 12 98 01/25/21 15:40 66 14 01/25/21 15:30 67 19 01/25/21 15:25 66 66 20 99 01/25/21 15:20 67 14 99 01/25/21 15:10 67 14 98 01/25/21 15:00 67 15 99 01/25/21 14:50 67 19 99 01/25/21 14:40 68 15 99 01/25/21 14:33 69 22 97 01/25/21 14:32 36.9 C 69 26 H 126/104 H 98 01/25/21 14:19 68 22 126/104 H 98 CBC Results Results Complete Blood Count Results: RBC 2.77 M/uL (4.2-5.4) L 01/25/21 WBC 6.49 K/uL (4.8-10.8) 01/25/21 Hgb 8.0 g/dL (12.0-16.0) L 01/25/21 Hct 25.4 % (37-47) L 01/25/21 Plt Count 294 K/uL (130-400) 01/25/21 Chemistry (BMP) Results BMP Results: Sodium 128 mmol/L (136-145) L 01/25/21 Potassium 5.2 mmol/L (3.5-5.1) H 01/25/21 Chloride 93 mmol/L (98-107) L 01/25/21 BUN 69 mg/dl (7-18) H 01/25/21 Creatinine 4.41 mg/dl (0.6-1.2) H 01/25/21 Glucose 90 mg/dl (70-99) 01/25/21 Code Status & VTE Plan VTE Prophylaxis Plan VTE Prophylaxis will be ordered: Yes Supervising Physician Co-Signing Physician Notes Reviewed resident's documentation, discussed with him briefly. Agree with documentation as written. Patient was sent here by her cattle tester for elevated creatinine. Typically she has chronic kidney disease with a baseline of 1.82.4. Her creatinine is up to 4.41. The emergency room had discussed with nephrology, plan to hydrate with normal is 100 cc an hour. She was also found to have a urinary tract infection and is being treated empirically with cefepime. Concern with healthcare associated pneumonia, cefepime as noted above. Continue other medications as detailed. Resident Activity Tracking Resident Involvement: Resident Care Provided Care Provided: Adult Hospital Medicine
[2021-01-25] MEDS ORDERED: NORMOSOL-R 1,000 ML IV SCH (20:20)
[2021-01-25] MEDS ORDERED: GLUCAGON FOR INJ 1 MG VIAL SQ PRN (20:20)
[2021-01-25] MEDS ORDERED: DEXTROSE 50% 50 ML SYRINGE IV PRN (20:20)
[2021-01-25] MEDS ORDERED: SOD PHOSPHATE/SOD BIPHOSPHATE ENEMA 132 ML BTL PR PRN (20:20)
[2021-01-25] MEDS ORDERED: GLUCOSE 10 TABS/TUBE PO PRN (20:20)
[2021-01-25] MEDS ORDERED: CARBOHYDRATES FOR HYPOGLYCEMIA PO PRN (20:20)
[2021-01-25] MEDS ORDERED: GLUCOSE 40% GEL 15 GM TUBE PO PRN (20:20)
[2021-01-25] MEDS ORDERED: bisacodyL 10 MG SUPP PR PRN (20:20)
[2021-01-25] MEDS: oxyCODONE HCL IR 5 MG TAB (IMMEDIATE RELEASE) PO PRN (20:54)
[2021-01-25] MEDS: WARFARIN SOD 3 MG TAB PO SCH (21:23)
[2021-01-25] MEDS: chlorproMAZINE HCL 25 MG TAB PO SCH (21:23)
[2021-01-25] MEDS: traZODone HCL 50 MG TAB PO SCH (21:23)
[2021-01-25] MEDS: METOPROLOL SUCC 50MG EXT REL TAB PO SCH (21:23)
[2021-01-25] MEDS: hydrALAZINE 10 MG TAB PO SCH (21:24)
[2021-01-25] MEDS: POLYETHYLENE (MIRALAX) 17 GM PACK PO SCH (21:24)
[2021-01-25] MEDS: INSULIN GLARGINE SOLOSTAR 100 UNITS/ML 3 ML PEN SC SCH (21:29)
[2021-01-25] MEDS: INSULIN ASPART 100 UNITS/ML 3 ML PEN SC SCH (21:30)
[2021-01-25] MEDS: SODIUM BICARBONATE 650 MG TAB PO SCH (21:43)
[2021-01-26 00:25] LABS: Appearance Urine Cloudy (Clear); Bilirubin Urine Negative (Negative); Blood Urine 3+ (Negative); Color Urine Yellow; Glucose Urine UA Negative (Negative); Ketones Urine Negative (Negative); Leukocyte Esterase Urine 3+ (Negative); Nitrite Urine Negative (Negative); Protein Urine 3+ (Negative); Urobilinogen Urine Negative (Negative)
[2021-01-26 00:35] LABS: RBC Urine >30 /hpf (0-4); WBC Urine >30 /hpf (0-5)
[2021-01-26 00:37] LABS: Bacteria Urine 2+ (Negative); Renal Epithelial Cells Urine 20-30 /lpf (0-5)
[2021-01-26 07:17] LABS: BUN Creatinine Ratio 16.9 (10-20); Calcium 7.8 mg/dl (8.5-10.1); Creatinine Clr Calc Pharmacy 16.6 ml/min; Est GFR (African American) 12.2 ml/min; Est GFR (Non-African American) 10.5 ml/min
[2021-01-26] MEDS: hydrALAZINE 10 MG TAB PO SCH ×3 (08:37→20:36)
[2021-01-26] MEDS: UMECLIDINIUM/VILANTEROL 62.5/25MCG 7 PUFFS/INHALER INH SCH (08:37)
[2021-01-26] MEDS: PANTOprazole 40 MG TAB PO SCH (08:38)
[2021-01-26] MEDS: SODIUM BICARBONATE 650 MG TAB PO SCH ×3 (08:38→17:59)
[2021-01-26] MEDS: LACTULOSE SYRUP 20 GM/30 ML UDC PO SCH (08:38)
[2021-01-26] MEDS: FLUTICASONE FUROATE 100MCG 14 PUFFS/INHALER INH SCH (08:38)
[2021-01-26] MEDS: METOPROLOL SUCC 50MG EXT REL TAB PO SCH ×2 (08:39→20:37)
[2021-01-26] MEDS: POLYETHYLENE (MIRALAX) 17 GM PACK PO SCH ×2 (08:39→20:38)
[2021-01-26] MEDS: NICOTINE 21 MG/24 HR TDSY TD SCH (08:39)
[2021-01-26] MEDS: ASPIRIN 81 MG ECTAB PO SCH (08:39)
[2021-01-26] MEDS: INSULIN ASPART 100 UNITS/ML 3 ML PEN SC SCH ×4 (08:40→21:10)
[2021-01-26] MEDS: LIDOCAINE 5% 1 PATCH TD SCH (08:40)
[2021-01-26] MEDS: INSULIN GLARGINE SOLOSTAR 100 UNITS/ML 3 ML PEN SC SCH ×2 (08:50→21:11)
[2021-01-26] MEDS: oxyCODONE HCL IR 5 MG TAB (IMMEDIATE RELEASE) PO PRN ×2 (08:55→21:06)
[2021-01-26] MEDS: CEFEPIME 2,000 MG in SYRINGE 0 ML IV SCH (08:55)
[2021-01-26] MEDS ORDERED: NON-FORMULARY MEDICATION (Fluticasone-Umeclidin-Vilanter [Trelegy Ellipta] 100-62.5-25 mcg INH SCH (09:00)
[2021-01-26 09:01] LABS: Estimated Average Glucose 137 mg/dl; Hemoglobin A1C 6.4 % (4.5-5.6)
[2021-01-26] MEDS ORDERED: SODIUM CHLORIDE 0.9% 250 ML IV PRN (10:23)
[2021-01-26] MEDS ORDERED: diphenhydrAMINE Capsule 25 MG CAP PO ONE (10:25)
[2021-01-26] MEDS ORDERED: ACETAMINOPHEN 500 MG TAB PO ONE (10:25)
--- NOTE | 2021-01-26 12:04 | Nephrology Consultation ---
Date of Consultation January 26, 2021 Assessment & Plan (1) Acute on chronic renal failure: Advanced CKD at baseline. Non-oliguric and no emergent indication for dialysis. Electrolytes are reasonable. However, HD may be indicated in the very near future. I had a long conversation with Zahida this morning. I also discussed her status with Dr. Hollis. I spoke with vascular surgery. They may be able to place an HD catheter on Sunday, if needed. Dr. Palma would be comfortable placing the catheter while the patient is on coumadin assuming the INR is not significantly greater than 2. INR should be monitored daily. Current goal of care is to temporize kidney dysfunction and possibly see some recovery. I would avoid any additional IVF. 1 u PRBC will be provided today. Treatment for UTI pending cultures is being provided. Diuretics are currently being held. I/O's will be documented and metabolic profile repeated tomorrow AM. Medications are currently appropriately dosed for kidney dysfunction. Oral KCl supplement has been held. Fleet enemas avoided. (2) UTI (urinary tract infection): Remains on cefepime. Antibiotics appropriately dosed for kidney dysfunction. Cultures pending. (3) Chronic anemia: 1 u PRBC transfusion support today. Repeat H/H with an iron profile tomorrow AM. JAYNE therapy and iron will then be coordinated PRN. (4) Diabetic nephropathy: Blood glucose control has been acceptable. (5) Benign essential hypertension: BP reasonably controlled. Avoid KWESI/ARB. (6) Chronic renal insufficiency, stage IV (severe): (7) Acute on chronic right-sided congestive heart failure: I would avoid additional IVF and avoid a significantly positive fluid balance. Between her valvular heart disease and kidney dysfunction. Zahida will likely require restarting diuretics in the very near future. She is aware that managing volume status may be a reason for HD in the near future. Document strict I/O's. (8) Hyponatremia: Limit free water intake to 1.5 L/d. Encourage dietary protein intake. Hold diuretics and monitor. History of Present Illness Reason for Consultation: LAZ/CKD Requesting Physician: Jatin Simpson DO Attending Physician: Jatin Simpson DO History of Present Illness Zahida Garay is a 60-year-old female with advanced CKD. CKD IV A3. 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 Progression of her kidney dysfunction has been fairly rapid. She follows closely in the nephrology clinic with Dr. Hollis and due to the rapid nature of her renal dysfunction and worsening symptoms of weakness + fatigue, Zahida was referred to [facility] yesterday. Evaluation demonstrated evidence of UTI and possible pneumonia for which she is receiving antibiotic therapy. CKD has been complicated by notable anemia and a very difficult to manage volume status. High dose diuretic therapy was being provided as an outpatient but Zahida has notable 3rd spacing and fluid retention. She has progressive dysnatremia with hypervolemia and decreased solute intake. I discussed the pateint's condition in detail with Dr. Hollis today. There is no significant history of NSAID use. There is no known family history of CKD or ESRD. Zahida is a former smoker who recently quit with 40+ pack years. She was initially seen by nephrology at [facility] in August when she was admitted with altered mental status, COVID pneumonia, and LAZ with hyperkalemia. Renal function eventually stabilized at ~1.8-2.4 mg/dL. She was again admitted to hospital from 10/07/2020 to 10/18/2020 with lethargy, supratherapeutic INR and anemia. 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 Zahida has been dependent and predominately non-ambulatory since her stroke. She has a history of medically treated hypertension. Lisinopril was discontinued because of LAZ and hyperkalemia. She also has a history of previously poorly controlled DMII, peripheral neuropathy, and PVD s/p left BKA chronic diabetic ulcer. She has CHF with right-sided heart failure, severe pulmonary hypertension, severe MR and TR. There is documented COPD for which she has been maintained on oxygen therapy. Zahida has also been treated for bipolar disorder. Allergies Allergy/AdvReac Type Severity Reaction Status Date / Time shellfish derived Allergy Unknown Unknown Verified 01/25/21 11:09 Home Medications Medication Instructions Recorded Confirmed Type cholecalciferol (vitamin D3) 50 50 mcg PO QAM 08/03/20 01/25/21 History mcg (2,000 unit) capsule lidocaine 5 % topical patch 1 patch TOPICAL DAILY 08/03/20 01/25/21 History oxycodone 5 mg tablet 5 mg PO Q6H PRN 08/03/20 01/25/21 History sodium bicarbonate 650 mg tablet 650 mg PO WM 08/03/20 01/25/21 History ziprasidone HCl 20 mg capsule 20 mg PO BID 08/03/20 01/25/21 History Fleet Enema 118 ml CA DIRECTED PRN 10/07/20 01/25/21 History Trelegy Ellipta 1 inh INHALATION DAILY 10/07/20 01/25/21 History acetaminophen 650 mg PO Q6H PRN MDD 3 GMS 10/07/20 01/25/21 History APAP/24 HOURS aspirin [Aspirin Low Dose] 81 mg PO QAM 10/07/20 01/25/21 History bisacodyl [Dulcolax (bisacodyl)] 10 mg CA DIRECTED PRN 10/07/20 01/25/21 History chlorpromazine 150 mg PO HS 10/07/20 01/25/21 History metoprolol succinate 50 mg PO BID 10/07/20 01/25/21 History hydralazine 10 mg PO TID #30 tab 10/19/20 01/25/21 Rx lactulose 30 ml PO DAILY #120 ml 10/19/20 01/25/21 Rx insulin aspart U-100 100 unit/mL 12 unit SUBCUT WM ml 01/10/21 01/25/21 History subcutaneous solution insulin glargine 100 unit/mL (3 30 unit SUBCUT QAM ml 01/10/21 01/25/21 History mL) subcutaneous pen omeprazole 20 mg capsule,delayed 20 mg PO DAILY 01/10/21 01/25/21 History release bumetanide [Bumex] 1 mg PO BID 01/25/21 01/25/21 History nicotine [Nicoderm CQ] 1 patch TRANSDERMAL UD 01/25/21 01/25/21 History nicotine [Nicoderm] 1 patch TRANSDERMAL DAILY 01/25/21 01/25/21 History polyethylene glycol 3350 17 g PO BID 01/25/21 01/25/21 History potassium chloride [Klor-Con M10] 10 meq PO Q OTHER DAY 01/25/21 01/25/21 History trazodone 50 mg tablet 50 mg PO HS tab 01/25/21 01/25/21 History warfarin [Coumadin] 3 mg PO HS 01/25/21 01/25/21 History Patient History Medical History Acute alteration in mental status Acute kidney injury Amputation of left great toe Anemia Benign essential hypertension delivery delivered Chronic renal insufficiency, stage IV (severe) CVA (cerebral vascular accident) Diabetic nephropathy Hypoglycemia Hypoxemia Insomnia Pneumonia due to 2019 novel coronavirus Vitamin D deficiency Surgical History Hx of right BKA Social History Smoking Status: Former smoker Tobacco Type: Cigarettes packs per day: 2; Years Smoked: 40; Cigarettes Per Day: 2 PPD; Smoking End Date: 2019; Second Hand Exposure: No; Tobacco Cessation Education Requested by Patient: No Hx Alcohol Use: No Hx Substance Use: No Preferred Language: Lao Communication Ability: Effective Tablet Machine Operator Required: No Beliefs That Will Affect Care: None marital status: Unknown Current Living Situation: Personal Care Facility Current Living Situation Comment: [facility] current occupational status: unemployed and disabled 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 How many Children do You have: 2 Other Information That Helps Us Care for You: No Feels Safe at Home: Yes Safety Concerns: Feels Safe At This Time caffeine: Yes Dental Care, Regularly: No Assistive Devices: Oxygen - Continuous Review of Systems Review of Systems: All systems reviewed & are unremarkable except as noted in HPI & below Constitutional: + fatigue, + weakness, + anorexia and + weight gain; no fever and no chills Respiratory: no cough and no dyspnea Cardiovascular: + edema; no chest pain and no palpitations Hematologic / Lymphatic: + easy bruising; no easy bleeding Physical Exam Constitutional: + ill appearing; no acute distress Eyes: + anicteric sclerae; no corneal abnormality ENMT: Mouth: + dry oral mucous membranes; no oral mucosal abnormality Neck: normal visual inspection and trachea midline Respiratory: normal respiratory effort Auscultation: lungs clear to auscultation bilaterally and + diminished lung sounds Cardiovascular: Rate/Rhythm: regular rate Heart Sounds: normal S1, normal S2 and + murmur Vessels: + JVD Extremities: normal capillary refill and + edema Musculoskeletal: Extremities: no cyanosis and no clubbing Skin: normal turgor; no lesions Neurologic: Motor/Sensory: no tremor and no asterixis Psychiatric: Orientation: alert and oriented x 3 Genitourinary: Melchor draining concentrated urine Results & Data ([facility]) Vital Signs (Past 12 Hours) Vital Signs Temp Pulse Pulse Resp BP Pulse Ox 01/26/21 11:06 36.6 C 70 20 127/82 100 01/26/21 07:20 63 01/26/21 06:34 36.5 C 61 16 129/85 98 01/26/21 03:21 36.5 C 62 16 127/82 100 Laboratory Results Laboratory Results - last 24 hr 01/25/21 01/25/21 01/25/21 14:26 14:26 15:29 WBC 6.49 RBC 2.77 L Hgb 8.0 L Hct 25.4 L MCV 91.7 MCH 28.9 MCHC 31.5 L RDW Std Deviation 52.6 H RDW Coeff of Esa 15.6 H Plt Count 294 MPV 8.9 Immature Gran % (Auto) 0.2 Neut % (Auto) 81.7 Lymph % (Auto) 12.0 Kerr % (Auto) 2.5 Eos % (Auto) 3.1 Baso % (Auto) 0.5 Neut # (Auto) 5.31 Lymph # (Auto) 0.78 L Kerr # (Auto) 0.16 Eos # (Auto) 0.20 Baso # (Auto) 0.03 Immature Gran # (Auto) 0.01 PT 30.0 H INR 3.2 H APTT 53.4 H* PTT Ratio 2.0 VBG pH VBG pCO2 VBG pO2 VBG HCO3 VBG O2 Saturation VBG Base Excess Barometric Pressure Sodium 128 L Potassium 5.2 H Chloride 93 L Carbon Dioxide 27 Anion Gap 8.0 BUN 69 H Creatinine 4.41 H Est Cr Clr Drug Dosing 15.6 Est GFR ( Amer) 12.0 Est GFR (Non-Af Amer) 10.3 BUN/Creatinine Ratio 15.7 Glucose 90 POC Glucose Estimat Average Glucose Hemoglobin A1c Osmolality Lactate Calcium 8.1 L Phosphorus 6.9 H Magnesium 2.4 Total Bilirubin 0.3 Direct Bilirubin 0.3 H AST 14 L ALT 13 Alkaline Phosphatase 176 H Troponin I < 0.015 C-Reactive Protein Total Protein 8.0 Albumin 2.2 L Globulin 5.8 H Albumin/Globulin Ratio 0.4 L Lipase 52 L Procalcitonin Urine Color Urine Appearance Urine pH Ur Specific Alder Urine Protein Urine Glucose (UA) Urine Ketones Urine Blood Urine Nitrite Urine Bilirubin Urine Urobilinogen Ur Leukocyte Esterase Urine RBC Urine WBC Ur Epithelial Cells Ur Renal Epithelial Cell Urine Bacteria Urine Osmolality Ur Random Sodium Nasal Screen MRSA (PCR) COVID-19 Eval Order SARS-CoV-2 (PCR) Blood Type Antibody Screen Crossmatch 01/25/21 01/25/21 01/25/21 15:29 15:31 16:03 WBC RBC Hgb Hct MCV MCH MCHC RDW Std Deviation RDW Coeff of Esa Plt Count MPV Immature Gran % (Auto) Neut % (Auto) Lymph % (Auto) Kerr % (Auto) Eos % (Auto) Baso % (Auto) Neut # (Auto) Lymph # (Auto) Kerr # (Auto) Eos # (Auto) Baso # (Auto) Immature Gran # (Auto) PT INR APTT PTT Ratio VBG pH 7.35 L VBG pCO2 49 VBG pO2 28 VBG HCO3 27 VBG O2 Saturation 64.8 VBG Base Excess 0.5 Barometric Pressure 729.1 Sodium Potassium Chloride Carbon Dioxide Anion Gap BUN Creatinine Est Cr Clr Drug Dosing Est GFR ( Amer) Est GFR (Non-Af Amer) BUN/Creatinine Ratio Glucose POC Glucose Estimat Average Glucose Hemoglobin A1c Osmolality 300 Lactate Calcium Phosphorus Magnesium Total Bilirubin Direct Bilirubin AST ALT Alkaline Phosphatase Troponin I C-Reactive Protein Total Protein Albumin Globulin Albumin/Globulin Ratio Lipase Procalcitonin Urine Color Yellow Urine Appearance Cloudy A Urine pH 7.0 Ur Specific Alder 1.020 Urine Protein 3+ H Urine Glucose (UA) Negative Urine Ketones Negative Urine Blood 3+ H Urine Nitrite Negative Urine Bilirubin Negative Urine Urobilinogen Negative Ur Leukocyte Esterase 3+ H Urine RBC 10-30 H Urine WBC >30 H Ur Epithelial Cells 0-5 Ur Renal Epithelial Cell Urine Bacteria 4+ H Urine Osmolality Ur Random Sodium Nasal Screen MRSA (PCR) COVID-19 Eval Order SARS-CoV-2 (PCR) Blood Type Antibody Screen Crossmatch 01/25/21 01/25/21 01/25/21 16:03 16:03 17:05 WBC RBC Hgb Hct MCV MCH MCHC RDW Std Deviation RDW Coeff of Esa Plt Count MPV Immature Gran % (Auto) Neut % (Auto) Lymph % (Auto) Kerr % (Auto) Eos % (Auto) Baso % (Auto) Neut # (Auto) Lymph # (Auto) Kerr # (Auto) Eos # (Auto) Baso # (Auto) Immature Gran # (Auto) PT INR APTT PTT Ratio VBG pH VBG pCO2 VBG pO2 VBG HCO3 VBG O2 Saturation VBG Base Excess Barometric Pressure Sodium Potassium Chloride Carbon Dioxide Anion Gap BUN Creatinine Est Cr Clr Drug Dosing Est GFR ( Amer) Est GFR (Non-Af Amer) BUN/Creatinine Ratio Glucose POC Glucose Estimat Average Glucose Hemoglobin A1c Osmolality Lactate Calcium Phosphorus Magnesium Total Bilirubin Direct Bilirubin AST ALT Alkaline Phosphatase Troponin I C-Reactive Protein Total Protein Albumin Globulin Albumin/Globulin Ratio Lipase Procalcitonin Urine Color Urine Appearance Urine pH Ur Specific Alder Urine Protein Urine Glucose (UA) Urine Ketones Urine Blood Urine Nitrite Urine Bilirubin Urine Urobilinogen Ur Leukocyte Esterase Urine RBC Urine WBC Ur Epithelial Cells Ur Renal Epithelial Cell Urine Bacteria Urine Osmolality 296 L Ur Random Sodium 39 Nasal Screen MRSA (PCR) COVID-19 Eval Order Covid19 at [facility] SARS-CoV-2 (PCR) Blood Type Antibody Screen Crossmatch 01/25/21 01/25/21 01/25/21 17:05 17:48 20:23 WBC RBC Hgb Hct MCV MCH MCHC RDW Std Deviation RDW Coeff of Esa Plt Count MPV Immature Gran % (Auto) Neut % (Auto) Lymph % (Auto) Kerr % (Auto) Eos % (Auto) Baso % (Auto) Neut # (Auto) Lymph # (Auto) Kerr # (Auto) Eos # (Auto) Baso # (Auto) Immature Gran # (Auto) PT INR APTT PTT Ratio VBG pH VBG pCO2 VBG pO2 VBG HCO3 VBG O2 Saturation VBG Base Excess Barometric Pressure Sodium Potassium Chloride Carbon Dioxide Anion Gap BUN Creatinine Est Cr Clr Drug Dosing Est GFR ( Amer) Est GFR (Non-Af Amer) BUN/Creatinine Ratio Glucose POC Glucose 139 H Estimat Average Glucose Hemoglobin A1c Osmolality Lactate 1.0 Calcium Phosphorus Magnesium Total Bilirubin Direct Bilirubin AST ALT Alkaline Phosphatase Troponin I C-Reactive Protein Total Protein Albumin Globulin Albumin/Globulin Ratio Lipase Procalcitonin Urine Color Urine Appearance Urine pH Ur Specific Alder Urine Protein Urine Glucose (UA) Urine Ketones Urine Blood Urine Nitrite Urine Bilirubin Urine Urobilinogen Ur Leukocyte Esterase Urine RBC Urine WBC Ur Epithelial Cells Ur Renal Epithelial Cell Urine Bacteria Urine Osmolality Ur Random Sodium Nasal Screen MRSA (PCR) COVID-19 Eval Order SARS-CoV-2 (PCR) NEGATIVE Blood Type Antibody Screen Crossmatch 01/25/21 01/26/21 01/26/21 22:20 00:15 06:07 WBC RBC Hgb Hct MCV MCH MCHC RDW Std Deviation RDW Coeff of Esa Plt Count MPV Immature Gran % (Auto) Neut % (Auto) Lymph % (Auto) Kerr % (Auto) Eos % (Auto) Baso % (Auto) Neut # (Auto) Lymph # (Auto) Kerr # (Auto) Eos # (Auto) Baso # (Auto) Immature Gran # (Auto) PT INR APTT PTT Ratio VBG pH VBG pCO2 VBG pO2 VBG HCO3 VBG O2 Saturation VBG Base Excess Barometric Pressure Sodium 128 L Potassium 5.0 Chloride 94 L Carbon Dioxide 26 Anion Gap 8.0 BUN 73 H Creatinine 4.34 H Est Cr Clr Drug Dosing 16.6 Est GFR ( Amer) 12.2 Est GFR (Non-Af Amer) 10.5 BUN/Creatinine Ratio 16.9 Glucose 132 H POC Glucose Estimat Average Glucose Hemoglobin A1c Osmolality Lactate Calcium 7.8 L Phosphorus Magnesium Total Bilirubin Direct Bilirubin AST ALT Alkaline Phosphatase Troponin I C-Reactive Protein Total Protein Albumin Globulin Albumin/Globulin Ratio Lipase Procalcitonin Urine Color Yellow Urine Appearance Cloudy A Urine pH 7.0 Ur Specific Alder 1.020 Urine Protein 3+ H Urine Glucose (UA) Negative Urine Ketones Negative Urine Blood 3+ H Urine Nitrite Negative Urine Bilirubin Negative Urine Urobilinogen Negative Ur Leukocyte Esterase 3+ H Urine RBC >30 H Urine WBC >30 H Ur Epithelial Cells 5-10 H Ur Renal Epithelial Cell 20-30 H Urine Bacteria 2+ H Urine Osmolality Ur Random Sodium Nasal Screen MRSA (PCR) Positive A COVID-19 Eval Order SARS-CoV-2 (PCR) Blood Type Antibody Screen Crossmatch 01/26/21 01/26/21 01/26/21 06:07 07:26 08:41 WBC RBC Hgb Hct MCV MCH MCHC RDW Std Deviation RDW Coeff of Esa Plt Count MPV Immature Gran % (Auto) Neut % (Auto) Lymph % (Auto) Kerr % (Auto) Eos % (Auto) Baso % (Auto) Neut # (Auto) Lymph # (Auto) Kerr # (Auto) Eos # (Auto) Baso # (Auto) Immature Gran # (Auto) PT INR APTT PTT Ratio VBG pH VBG pCO2 VBG pO2 VBG HCO3 VBG O2 Saturation VBG Base Excess Barometric Pressure Sodium Potassium Chloride Carbon Dioxide Anion Gap BUN Creatinine Est Cr Clr Drug Dosing Est GFR ( Amer) Est GFR (Non-Af Amer) BUN/Creatinine Ratio Glucose POC Glucose 178 H Estimat Average Glucose 137 Hemoglobin A1c 6.4 H Osmolality Lactate Calcium Phosphorus Magnesium Total Bilirubin Direct Bilirubin AST ALT Alkaline Phosphatase Troponin I C-Reactive Protein 3.83 H Total Protein Albumin Globulin Albumin/Globulin Ratio Lipase Procalcitonin Urine Color Urine Appearance Urine pH Ur Specific Alder Urine Protein Urine Glucose (UA) Urine Ketones Urine Blood Urine Nitrite Urine Bilirubin Urine Urobilinogen Ur Leukocyte Esterase Urine RBC Urine WBC Ur Epithelial Cells Ur Renal Epithelial Cell Urine Bacteria Urine Osmolality Ur Random Sodium Nasal Screen MRSA (PCR) COVID-19 Eval Order SARS-CoV-2 (PCR) Blood Type Antibody Screen Crossmatch 01/26/21 01/26/21 01/26/21 08:41 10:45 11:24 WBC RBC Hgb Hct MCV MCH MCHC RDW Std Deviation RDW Coeff of Esa Plt Count MPV Immature Gran % (Auto) Neut % (Auto) Lymph % (Auto) Kerr % (Auto) Eos % (Auto) Baso % (Auto) Neut # (Auto) Lymph # (Auto) Kerr # (Auto) Eos # (Auto) Baso # (Auto) Immature Gran # (Auto) PT INR APTT PTT Ratio VBG pH VBG pCO2 VBG pO2 VBG HCO3 VBG O2 Saturation VBG Base Excess Barometric Pressure Sodium Potassium Chloride Carbon Dioxide Anion Gap BUN Creatinine Est Cr Clr Drug Dosing Est GFR ( Amer) Est GFR (Non-Af Amer) BUN/Creatinine Ratio Glucose POC Glucose 204 H Estimat Average Glucose Hemoglobin A1c Osmolality Lactate Calcium Phosphorus Magnesium Total Bilirubin Direct Bilirubin AST ALT Alkaline Phosphatase Troponin I C-Reactive Protein Total Protein Albumin Globulin Albumin/Globulin Ratio Lipase Procalcitonin < 0.05 Urine Color Urine Appearance Urine pH Ur Specific Alder Urine Protein Urine Glucose (UA) Urine Ketones Urine Blood Urine Nitrite Urine Bilirubin Urine Urobilinogen Ur Leukocyte Esterase Urine RBC Urine WBC Ur Epithelial Cells Ur Renal Epithelial Cell Urine Bacteria Urine Osmolality Ur Random Sodium Nasal Screen MRSA (PCR) COVID-19 Eval Order SARS-CoV-2 (PCR) Blood Type Pending Antibody Screen Pending Crossmatch See Detail Diagnostic Findings Abdominal CT scan and CXR from admission personally reviewed today. Kidneys are atrophic and unobstructed. Pulmonary congestion and pleural effusions noted. PG Care Time/CCT Total # of Minutes Spent Total Time Spent with Patient: Total time spent is greater than 50% in coordination of care (as documented) at patient's floor/unit and/or counseling patient: Coding Level of Care Code 33082 Inpt Consult Level 5 Diagnoses Acute on chronic renal failure N17.9; N18.9 Acute renal failure type: unspecified Chronic kidney disease stage: unspecified stage UTI (urinary tract infection) N39.0 Hematuria presence: without hematuria Urinary tract infection type: site unspecified Chronic anemia D64.9 Diabetic nephropathy E11.21 Benign essential hypertension I10 Chronic renal insufficiency, stage IV (severe) N18.4 Acute on chronic right-sided congestive heart failure I50.813 Hyponatremia E87.1 (1) Acute on chronic renal failure Acute renal failure type: unspecified Chronic kidney disease stage: unspecified stage Qualified Code(s): N17.9 - Acute kidney failure, unspecified; N18.9 - Chronic kidney disease, unspecified (2) UTI (urinary tract infection) Hematuria presence: without hematuria Urinary tract infection type: site unspecified Qualified Code(s): N39.0 - Urinary tract infection, site not specified
--- NOTE | 2021-01-26 13:07 | Electrocardiogram Report ---
Test Reason : Blood Pressure : / mmHG Vent. Rate : 069 BPM Atrial Rate : 069 BPM P-R Int : 190 ms QRS Dur : 080 ms QT Int : 432 ms P-R-T Axes : 016 054 053 degrees QTc Int : 462 ms Normal sinus rhythm Normal ECG When compared with ECG of 07-OCT-2020 14:33, No significant change was found Confirmed by Enio Bledsoe ([id number]) on 01/26/2021 1:06:35 PM Referred By: Omega Umaña Confirmed By:Enio Bledsoe
--- NOTE | 2021-01-26 17:17 | Medical Student Progress Note ---
Date of Service January 26, 2021 Assessment & Plan Admission and Anticipated Discharge Date Admission Date: January 25, 2021 Elevated Creatinine - 4.41 from baseline1.8-2.4 - Consulted nephrology -No emergent need for dialysis. Advanced CKD at baseline - May require dialysis in the near future - electrolytes look OK - Monitor INR daily - Hold oral KCl - Hold IVF - medications dosed for cr. clearance - continue to follow cr, and potassium Right-sided HF - continue to monitor avoiding positive fluid balance - may require diuretics in the future UTI - UA with protein, blood, LCE, WBC, but with epithelial cells - currently asymptomatic - previously with cee sensitive Klebsiella UTI on 08/15 - Ceftriaxone given in the ER - continue Cefepime for now - follow up urine culture - normal CRP and pro-sofi Concern for pneumonia - Given lack of clinical symptoms, likely findings on imaging remain from previous COVID-19 infection and chronic aspiration - normal CRP and pro-sofi -on baseline oxygen requirement - Ceftriaxone given in the ER Severe Protein-Calorie Malnutrition - Albumin of 2.0 - Consult dietary History of Atrial Fibrillation - Currently in NSR - Monitor on tele - Continue rate control with home metoprolol 50mg po BID IDDM - Continue Lantus 10U BID - ISS - Hypoglycemic protocol Hx of Bipolar Disorder and Anxiety - Continue home ziprasidone 20mg po BID, chlorpromazine 150mg po qhs, and trazodone 25mg po qhs Hx of Anemia - No current signs of bleeding - Hgb close to baseline at 8 - Per recommendations from nephrology, 1 unit PRBCs on 01/26 Hx of Nicotine Dependence - Continue Nicoderm patch daily FENGI: Heart healthy, carb count, low sodium (<2g), and fluid restriction < 1200mL/day DVT Ppx: Anticoagulated on coumadin Dispo: Pmed/sug w/ tele Code status: Full code Supervising Attestation I personally examined the patient and verified all senior points of history and exam, discussed case, and agree with decision making with Amanuel Rothman MS4 Somewhat sleepy whenever I see her. But denies any pain or shortness of breath. Nephrology input greatly appreciated. Vitals noted, in general she is somewhat groggy but awakens a little. No distress. HEENT normocephalic atraumatic mucous membranes moist. Cardio is regular no rubs murmurs or gallops. Lungs clear to auscultation bilaterally no rales rhonchi or wheezes with good effort. Extremities show no cyanosis. Neuro shows no focal deficits at rest. CKD stage IV/progressed renal failurehard to really discern that this would be acute renal failure superimposed on CKD is much is probably just progression of her CKD to nearly end-stage. Agree with/appreciate nephrology management. Agree right now there is no acute indications for dialysis, continue to follow electrolytes closely given that her potassium is 5 and to follow to make sure she does not show any hints of CHF (right now she does not) Abnormal chest x-raywith no symptoms, reassuring exam, low inflammatory markers, and her prior history of aspiration as well as Covid, I strongly suspect her chest x-ray is really more that of chronic aspiration findings as well as left over Covid related inflammatory findings or scarring. Continue to follow closely, but no specific treatment appears to be warranted at this point. Right-sided CHF and severe pulmonary hypertensionuncertain if this is primary pulmonary hypertension or secondarywould like to have her followed up for sleep apnea as an outpatient if this has not been done. She does have rather significant pack-year history and this may all be COPD related as well. Type 2 diabetescurrently controlled with an A1c of 6.4, unfortunately I suspect that a lot of her chronic disease does relate to her diabetes, and I wonder what her control was over prior years. DVT prophylaxisanticoagulated with Coumadin. Follow INR. Miriam Teague slept well and is eating breakfast. She is conversant and asks questions about her care. Her urinary catheter is draining pale red urine. Denies chest pain, cough, nausea/ vomiting, abdominal pain, or dysuria. Review of Systems Review of Systems: See HPI Physical Exam Physical Exam: GENERAL: wdwg, nad, R leg amputated HEENT: conjunctiva without injection b/l, oropharynx moist, no erythema, no intraoral masses external nose and pinna are normal CHEST: soft bl crackles, no wheezes, rhonchi or rales, good air movement with normal respiratory effort CARDIOVASCULAR: heart regular rate and rhythm, no murmurs, gallops or rubs, 2+ pitting edema ABD: no hepatosplenomegaly or masses, nontender to palpation, nondistended, normal active bowel sounds SKIN: no rashes or suspicious lesions noted NEURO: PERRLA, EOMI, PSYCH: alert and oriented x 3, affect appropriate for situation Results & Data ([facility]) Vital Signs (Past 12 Hours) Vital Signs Temp Pulse Pulse Resp BP BP BP 01/26/21 16:15 36.7 C 62 20 147/101 H 01/26/21 14:45 36.6 C 67 20 133/86 01/26/21 14:00 36.6 C 70 18 135/89 01/26/21 13:44 36.6 C 65 18 136/91 01/26/21 11:06 36.6 C 70 20 127/82 01/26/21 07:20 63 01/26/21 06:34 36.5 C 61 16 129/85 Pulse Ox 01/26/21 16:15 100 01/26/21 14:45 100 01/26/21 14:00 99 01/26/21 13:44 97 01/26/21 11:06 100 01/26/21 07:20 01/26/21 06:34 98
[2021-01-26] MEDS: WARFARIN SOD 3 MG TAB PO SCH (18:00)
--- NOTE | 2021-01-26 18:56 | Billing Data ---
Date of Service January 26, 2021 Coding Level of Care Code 13698 Subseq Hosp Care Lvl 3
[2021-01-26] MEDS: chlorproMAZINE HCL 25 MG TAB PO SCH (20:35)
[2021-01-26] MEDS: traZODone HCL 50 MG TAB PO SCH (21:06)
[2021-01-27 07:16] LABS: Hematocrit (blood only) 28.2 % (37-47); Hemoglobin 9.4 g/dL (12.0-16.0); Mean Corpuscular Hemoglobin 29.5 pg (25-34); Mean Corpuscular Hgb Conc 33.3 g/dL (32-36); Mean Corpuscular Volume 88.4 fL (80-100); Mean Platelet Volume 8.6 fL (7.4-10.4); Platelet Count 237 K/uL (130-400); RDW Coefficient of Variation 15.1 % (11.5-14.5); RDW Standard Deviation 49.2 fL (36.4-46.3); Red Blood Count 3.19 M/uL (4.2-5.4)
[2021-01-27 07:35] LABS: Prothrombin Time 57.7 Seconds (9.0-12.0)
[2021-01-27 07:41] LABS: Albumin Level 1.9 gm/dl (3.4-5.0); BUN Creatinine Ratio 17.8 (10-20); Calcium 8.3 mg/dl (8.5-10.1); Creatinine Clr Calc Pharmacy 17.1 ml/min; Est GFR (African American) 12.5 ml/min; Est GFR (Non-African American) 10.8 ml/min; Potassium 4.8 mmol/L (3.5-5.1)
[2021-01-27 07:46] LABS: Ferritin 347.5 ng/ml (8-388); INR 6.6 (0.9-1.1); Phosphorus 6.8 mg/dl (2.5-4.9)
[2021-01-27] MEDS: FLUTICASONE FUROATE 100MCG 14 PUFFS/INHALER INH SCH (08:42)
[2021-01-27] MEDS: PANTOprazole 40 MG TAB PO SCH (08:43)
[2021-01-27] MEDS: LACTULOSE SYRUP 20 GM/30 ML UDC PO SCH (08:43)
[2021-01-27] MEDS: UMECLIDINIUM/VILANTEROL 62.5/25MCG 7 PUFFS/INHALER INH SCH (08:43)
[2021-01-27] MEDS: NICOTINE 21 MG/24 HR TDSY TD SCH (08:44)
[2021-01-27] MEDS: ASPIRIN 81 MG ECTAB PO SCH (08:44)
[2021-01-27] MEDS: METOPROLOL SUCC 50MG EXT REL TAB PO SCH ×2 (08:44→20:51)
[2021-01-27] MEDS: LIDOCAINE 5% 1 PATCH TD SCH (08:44)
[2021-01-27] MEDS: POLYETHYLENE (MIRALAX) 17 GM PACK PO SCH ×2 (08:44→20:54)
[2021-01-27] MEDS: hydrALAZINE 10 MG TAB PO SCH ×3 (08:45→20:50)
[2021-01-27] MEDS ORDERED: EPOETIN ALFA 20,000 UNITS/ML VIAL SQ ONE (08:45)
[2021-01-27] MEDS: INSULIN GLARGINE SOLOSTAR 100 UNITS/ML 3 ML PEN SC SCH ×2 (08:45→21:19)
[2021-01-27] MEDS: INSULIN ASPART 100 UNITS/ML 3 ML PEN SC SCH ×4 (08:48→21:18)
[2021-01-27] MEDS: SODIUM BICARBONATE 650 MG TAB PO SCH ×3 (09:31→17:28)
[2021-01-27] MEDS: CEFEPIME 2,000 MG in SYRINGE 0 ML IV SCH (09:33)
[2021-01-27] MEDS: oxyCODONE HCL IR 5 MG TAB (IMMEDIATE RELEASE) PO PRN ×2 (09:36→18:43)
--- NOTE | 2021-01-27 10:35 | Nephrology Progress Note ---
Date of Service January 27, 2021 Assessment & Plan (1) Acute on chronic renal failure: Creatinine stable. Electrolytes acceptable. Remains non-oliguric. No emergent indication for dialysis at this time. Today, I would like to restart diuretics to encourage a negative fluid and salt balance and I expect to see some rise in creatinine in the setting of MR/TR, pulmonary hypertension, and right heart failure. This is permissive but Zahida understands that dialysis may be necessary if we cannot achieve adequate control of her volume status without notable worsening of kidney. Dr. Palma should be available on Sunday for permcath placement at that time if needed. Bumex 2 mg IV has been ordered for now. I/O's will be documented and metabolic profile repeated tomorrow AM. Medications are currently appropriately dosed for kidney dysfunction. (2) UTI (urinary tract infection): Remains on cefepime. Antibiotics appropriately dosed for kidney dysfunction. Cultures pending. (3) Chronic anemia: 1 u PRBC transfusion support provided yesterday. Iron profile acceptable. Epogen 85637 units given this AM. (4) Benign essential hypertension: BP reasonably controlled. Avoid KWESI/ARB. (5) Chronic renal insufficiency, stage IV (severe): (6) Acute on chronic right-sided congestive heart failure: I would avoid additional IVF and avoid a significantly positive fluid balance. Between her valvular heart disease and kidney dysfunction. Zahdia should be kept in a negative fluid balance. Document strict I/O's. (7) Hyponatremia: Limit free water intake to 1.2 L/d. Encourage dietary protein intake. Restart diuretics today. Repeat metabolic profile tomorrow AM. Admission and Anticipated Discharge Date Admission Date: January 25, 2021 Subjective Zahida was more sleepy this morning. She remains very weak but denies any other specific complaints. We discussed dialysis again and she remains receptive to the idea if needed. Edema persists. She is breathing relatively comfortably. No acute events overnight. Review of Systems Review of Systems: All systems reviewed & are unremarkable except as noted in HPI & below Physical Exam Constitutional: + ill appearing; no acute distress Eyes: + anicteric sclerae; no corneal abnormality ENMT: Mouth: + dry oral mucous membranes; no oral mucosal abnormality Neck: normal visual inspection and trachea midline Respiratory: normal respiratory effort Auscultation: lungs clear to auscultation bilaterally and + diminished lung sounds Cardiovascular: Rate/Rhythm: regular rate Heart Sounds: normal S1, normal S2 and + murmur Vessels: + JVD Extremities: normal capillary refill and + edema Musculoskeletal: Extremities: no cyanosis and no clubbing Skin: normal turgor; no lesions Neurologic: Motor/Sensory: no tremor and no asterixis Psychiatric: Orientation: alert and oriented x 3 Results & Data ([facility]) Vital Signs (Past 12 Hours) Vital Signs Temp Pulse Pulse Resp BP BP Pulse Ox 01/27/21 07:34 36.4 C L 65 18 152/88 H 99 01/27/21 07:11 57 L 01/27/21 04:56 36.4 C L 59 L 18 146/94 H 99 01/27/21 01:48 62 01/26/21 23:53 36.7 C 62 18 129/89 97 Laboratory Results Laboratory Results - last 24 hr 01/26/21 01/26/21 01/26/21 10:45 11:24 16:23 WBC RBC Hgb Hct MCV MCH MCHC RDW Std Deviation RDW Coeff of Esa Plt Count MPV PT INR Sodium Potassium Chloride Carbon Dioxide Anion Gap BUN Creatinine Est Cr Clr Drug Dosing Est GFR ( Amer) Est GFR (Non-Af Amer) BUN/Creatinine Ratio Glucose POC Glucose 204 H 176 H Calcium Phosphorus Iron Transferrin Transferrin % Sat Ferritin Albumin Blood Type B Positive Antibody Screen NEGATIVE Crossmatch See Detail 01/26/21 01/27/21 01/27/21 20:07 06:46 06:46 WBC 5.90 RBC 3.19 L Hgb 9.4 L Hct 28.2 L MCV 88.4 MCH 29.5 MCHC 33.3 RDW Std Deviation 49.2 H RDW Coeff of Esa 15.1 H Plt Count 237 MPV 8.6 PT INR Sodium 129 L Potassium 4.8 Chloride 97 L Carbon Dioxide 23 Anion Gap 9.0 BUN 76 H Creatinine 4.24 H Est Cr Clr Drug Dosing 17.1 Est GFR ( Amer) 12.5 Est GFR (Non-Af Amer) 10.8 BUN/Creatinine Ratio 17.8 Glucose 88 POC Glucose 213 H Calcium 8.3 L Phosphorus 6.8 H Iron 95 Transferrin 204 Transferrin % Sat 33 Ferritin 347.5 Albumin 1.9 L Blood Type Antibody Screen Crossmatch 06/24/21 06/24/21 06:46 07:30 WBC RBC Hgb Hct MCV MCH MCHC RDW Std Deviation RDW Coeff of Esa Plt Count MPV PT 57.7 H INR 6.6 H* Sodium Potassium Chloride Carbon Dioxide Anion Gap BUN Creatinine Est Cr Clr Drug Dosing Est GFR ( Amer) Est GFR (Non-Af Amer) BUN/Creatinine Ratio Glucose POC Glucose 106 H Calcium Phosphorus Iron Transferrin Transferrin % Sat Ferritin Albumin Blood Type Antibody Screen Crossmatch PG Care Time/CCT Total # of Minutes Spent Total Time Spent with Patient: Total time spent is greater than 50% in coordinat ion of care (as documented) at patient's floor/unit and/or counseling patient: Coding Level of Care Code 67581 Subseq Hosp Care Lvl 3 Diagnoses Acute on chronic renal failure N17.9; N18.9 Acute renal failure type: unspecified Chronic kidney disease stage: unspecified stage UTI (urinary tract infection) N39.0 Hematuria presence: without hematuria Urinary tract infection type: site unspecified Chronic anemia D64.9 Benign essential hypertension I10 Chronic renal insufficiency, stage IV (severe) N18.4 Acute on chronic right-sided congestive heart failure I50.813 Hyponatremia E87.1 (1) Acute on chronic renal failure Acute renal failure type: unspecified Chronic kidney disease stage: unspecified stage Qualified Code(s): N17.9 - Acute kidney failure, unspecified; N18.9 - Chronic kidney disease, unspecified (2) UTI (urinary tract infection) Hematuria presence: without hematuria Urinary tract infection type: site unspecified Qualified Code(s): N39.0 - Urinary tract infection, site not specified
[2021-01-27] MEDS ORDERED: BUMETANIDE 2 MG in SYRINGE 0 ML IV ONE ×2 (10:45→17:30)
--- NOTE | 2021-01-27 13:10 | Medical Student Progress Note ---
Date of Service January 27, 2021 Assessment & Plan Admission and Anticipated Discharge Date Admission Date: January 25, 2021 Elevated Creatinine - 4.41 from baseline1.8-2.4 - Consulted nephrology -No emergent need for dialysis. Advanced CKD at baseline - May require dialysis if adequate volume status not achieved - electrolytes look OK - Monitor INR daily - Hold oral KCl - Hold IVF - begin Bumex 2mg 2/24 - encourage dietary protein intake - limit water intake to 1.2L/ day - goal of negative fluid balance - continue I/O and repeat BMP - medications dosed for cr. clearance - continue to follow cr, and potassium Right-sided HF - continue to monitor avoiding positive fluid balance - may require diuretics in the future UTI - UA with protein, blood, LCE, WBC, but with epithelial cells - currently asymptomatic - previously with cee sensitive Klebsiella UTI on 08/15 - Ceftriaxone given in the ER - continue Cefepime for now - follow up urine culture - normal CRP and pro-sofi Concern for pneumonia - Given lack of clinical symptoms, likely findings on imaging remain from previous COVID-19 infection and chronic aspiration - normal CRP and pro-sofi -on baseline oxygen requirement - Ceftriaxone given in the ER Severe Protein-Calorie Malnutrition - Albumin of 2.0 - Consult dietary History of Atrial Fibrillation - Currently in NSR - Monitor on tele - Continue rate control with home metoprolol 50mg po BID IDDM - Continue Lantus 10U BID - ISS - Hypoglycemic protocol - Consult wound care for L great toe amputation Hx of Bipolar Disorder and Anxiety - Continue home ziprasidone 20mg po BID, chlorpromazine 150mg po qhs, and trazodone 25mg po qhs Hx of Anemia - No current signs of bleeding - Hgb close to baseline at 8 - Per recommendations from nephrology, 1 unit PRBCs on 01/26 - Iron studies normal -Epogen 2000 units given 01/27 Hx of Nicotine Dependence - Continue Nicoderm patch daily FENGI: Heart healthy, carb count, low sodium (<2g), and fluid restriction < 1200mL/day DVT Ppx: Anticoagulated on coumadin Dispo: Pmed/sug w/ tele Code status: Full code Supervising Attestation I personally examined the patient and verified all senior points of history and exam, discussed case, and agree with decision making with Amanuel Rothman MS4 Far more awake. No shortness of breath. Understands plan. Generally feeling okay. Case discussed with nephrology. Vitals noted, in general she is awake and alert, pleasant, no distress. HEENT normocephalic atraumatic mucous membranes moist. Cardio is regular no rubs murmurs or gallops. Lungs clear to auscultation bilaterally no rales rhonchi or wheezes with good effort. Extremities show no cyanosis. Neuro shows no focal deficits at rest. She does have left lower extremity edema probably 2+. CKD stage IV/progressed renal failurehard to really discern that this would be acute renal failure superimposed on CKD is much is probably just progression of her CKD to nearly end-stage. No acute indication for dialysis, but with her overall frailty and lack of margin of air, nephrology and I discussed her situation, and it seems that it would be safest to proceed with getting dialysis started here in the hospital, even though it will unfortunately prolong her hospital stay. She just has a lot of risk of decompensation and a lot of different directions, with a lot of complexity that may be difficult to manage with the pace/fragmentation that occurs more in the outpatient world. For now she has been given Bumex earlier today by nephrology, we will hold off on further diuretic unless she starts to show any pulmonary volume overload, so as to save her preload for hemodialysis. Discussed with patient that I doubt her lower extremity edema would be able to be improved with diuresis, given that it is largely right-sided CHF/third space/venous stasis fluid. Abnormal chest x-raywith no symptoms, reassuring exam, low inflammatory markers, and her prior history of aspiration as well as Covid, I strongly suspect her chest x-ray is really more that of chronic aspiration findings as well as left over Covid related inflammatory findings or scarring. Thus far with serial exams she continues to look like this is the case. Right-sided CHF and severe pulmonary hypertensionprobably COPD related, should also have outpatient sleep work-up to ensure we do not have untreated sleep apnea as well. Type 2 diabetescurrently controlled with an A1c of 6.4, unfortunately I suspect that a lot of her chronic disease does relate to her diabetes, and I wonder what her control was over prior years. For now continue to titrate insulin. DVT prophylaxisanticoagulated with Coumadin. Follow INRhigh today, her marked jump begs the question of adherence at home. Coumadin on hold. Follow INR, no bleedingno need to correct at this time. Subjective Zahida is resting comfortably in bed waiting for breakfast. She denies any general pain. Her catheter is draining pale red urine. She denies chest pain, cough, shortness of breath, nausea/vomiting, abdominal pain. She has some non- specific pain over palpation of her left angle. She has baseline peripheral neuropathy and amputation of great toes. No evidence of infectious process. I/O has been appropriate. Review of Systems Review of Systems: See HPI Physical Exam Physical Exam: GENERAL: wdwg, nad, R leg amputated HEENT: conjunctiva without injection b/l, oropharynx moist, no erythema, no intraoral masses external nose and pinna are normal CHEST: soft bl crackles, no wheezes, rhonchi or rales, good air movement with normal respiratory effort CARDIOVASCULAR: heart regular rate and rhythm, no murmurs, gallops or rubs, 2+ pitting edema ABD: no hepatosplenomegaly or masses, nontender to palpation, nondistended, normal active bowel sounds SKIN: R great toe amputated and bandaged without erythema or warmth, no other lesions visible NEURO: PERRLA, EOMI PSYCH: alert and oriented x 3, affect appropriate for situation Results & Data ([facility]) Vital Signs (Past 12 Hours) Vital Signs Temp Pulse Pulse Resp BP Pulse Ox 01/27/21 07:34 36.4 C L 65 18 152/88 H 99 01/27/21 07:11 57 L 01/27/21 04:56 36.4 C L 59 L 18 146/94 H 99 01/27/21 01:48 62
--- NOTE | 2021-01-27 19:21 | Billing Data ---
Date of Service January 27, 2021 Coding Level of Care Code 59944 Subseq Hosp Care Lvl 3
[2021-01-27] MEDS: chlorproMAZINE HCL 25 MG TAB PO SCH (20:53)
[2021-01-27] MEDS: traZODone HCL 50 MG TAB PO SCH (20:54)
[2021-01-28] MEDS: oxyCODONE HCL IR 5 MG TAB (IMMEDIATE RELEASE) PO PRN ×2 (05:06→17:02)
[2021-01-28 07:23] LABS: Basophils # (auto) 0.02 K/uL (0-0.2); Basophils % (auto) 0.3 %; Eosinophils # (auto) 0.23 K/uL (0-0.5); Eosinophils % (auto) 3.8 %; Hematocrit (blood only) 28.5 % (37-47); Hemoglobin 9.3 g/dL (12.0-16.0); Immature Granulocytes # (auto) 0.02 K/uL (0.00-0.02); Immature Granulocytes % (auto) 0.3 %; Lymphocytes # (auto) 0.63 K/uL (1.2-3.4); Lymphocytes % (auto) 10.5 %; Mean Corpuscular Hemoglobin 29.1 pg (25-34); Mean Corpuscular Hgb Conc 32.6 g/dL (32-36); Mean Corpuscular Volume 89.1 fL (80-100); Mean Platelet Volume 8.8 fL (7.4-10.4); Monocytes # (auto) 0.25 K/uL (0.11-0.59); Monocytes % (auto) 4.2 %; Neutrophils # (auto) 4.83 K/uL (1.4-6.5); Neutrophils % (auto) 80.9 %; Platelet Count 257 K/uL (130-400); RDW Coefficient of Variation 15.3 % (11.5-14.5); RDW Standard Deviation 49.5 fL (36.4-46.3); White Blood Count 5.98 K/uL (4.8-10.8)
[2021-01-28 07:41] LABS: Prothrombin Time 67.7 Seconds (9.0-12.0)
[2021-01-28 07:52] LABS: INR 7.9 (0.9-1.1)
[2021-01-28] MEDS: SODIUM BICARBONATE 650 MG TAB PO SCH ×3 (08:35→17:57)
[2021-01-28] MEDS: METOPROLOL SUCC 50MG EXT REL TAB PO SCH ×2 (08:36→21:02)
[2021-01-28] MEDS: hydrALAZINE 10 MG TAB PO SCH ×3 (08:36→21:03)
[2021-01-28] MEDS: UMECLIDINIUM/VILANTEROL 62.5/25MCG 7 PUFFS/INHALER INH SCH (08:37)
[2021-01-28] MEDS: PANTOprazole 40 MG TAB PO SCH (08:37)
[2021-01-28] MEDS: FLUTICASONE FUROATE 100MCG 14 PUFFS/INHALER INH SCH (08:37)
[2021-01-28] MEDS: INSULIN GLARGINE SOLOSTAR 100 UNITS/ML 3 ML PEN SC SCH ×2 (08:40→21:12)
[2021-01-28] MEDS: ASPIRIN 81 MG ECTAB PO SCH (08:41)
[2021-01-28] MEDS: POLYETHYLENE (MIRALAX) 17 GM PACK PO SCH ×2 (08:43→21:04)
[2021-01-28] MEDS: LIDOCAINE 5% 1 PATCH TD SCH (08:45)
[2021-01-28] MEDS: NICOTINE 21 MG/24 HR TDSY TD SCH (08:45)
[2021-01-28] MEDS: INSULIN ASPART 100 UNITS/ML 3 ML PEN SC SCH ×4 (08:48→21:12)
[2021-01-28 09:39] LABS: Creatinine Clr Calc Pharmacy 16.8 ml/min; Est GFR (African American) 12.3 ml/min; Est GFR (Non-African American) 10.6 ml/min; Phosphorus 6.5 mg/dl (2.5-4.9); Potassium 4.9 mmol/L (3.5-5.1)
--- NOTE | 2021-01-28 09:43 | Medical Student Progress Note ---
Date of Service January 28, 2021 Assessment & Plan (1) Acute on chronic renal failure: Elevated Creatinine - 4.41 from baseline1.8-2.4 - Consulted nephrology -No emergent need for dialysis. Advanced CKD at baseline - Will likely require dialysis. Dr. Palma available on Sunday for placement - electrolytes look OK - Monitor INR daily- 6.6 01/27 holding warfarin, 7.9 01/28, - Hold oral KCl - Hold IVF - continue Bumex 2mg- restarted 09/29 - encourage dietary protein intake - limit water intake to 1.2L/ day - goal of negative fluid balance - continue I/O and repeat BMP - medications dosed for cr. clearance - continue to follow cr, and potassium Right-sided HF - continue to monitor avoiding positive fluid balance - may require diuretics in the future UTI - UA with protein, blood, LCE, WBC, but with epithelial cells - currently asymptomatic - previously with cee sensitive Klebsiella UTI on 08/15 - Ceftriaxone given in the ER - Cefepime discontinued 01/27 - follow up urine culture - normal CRP and pro-sofi Concern for pneumonia - Given lack of clinical symptoms, likely findings on imaging remain from previous COVID-19 infection and chronic aspiration - normal CRP and pro-sofi -on baseline oxygen requirement - Ceftriaxone given in the ER Severe Protein-Calorie Malnutrition - Albumin of 2.0 - Consult dietary History of Atrial Fibrillation - Currently in NSR - Monitor on tele - Continue rate control with home metoprolol 50mg po BID IDDM - Continue Lantus 10U BID - ISS - Hypoglycemic protocol - Consult wound care for L great toe amputation Hx of Bipolar Disorder and Anxiety - Continue home ziprasidone 20mg po BID, chlorpromazine 150mg po qhs, and trazodone 25mg po qhs Hx of Anemia - No current signs of bleeding - Hgb close to baseline at 8 on admission, 9.2 01/27 - Per recommendations from nephrology, 1 unit PRBCs on 01/26 - Iron studies normal -Epogen 2000 units given 01/27 Hx of Nicotine Dependence - Continue Nicoderm patch daily FENGI: Heart healthy, carb count, low sodium (<2g), and fluid restriction < 1200mL/day DVT Ppx: Anticoagulated on coumadin Dispo: Pmed/sug w/ tele Code status: Full code Acute renal failure type: unspecified Chronic kidney disease stage: unspecified stage Qualified Code(s): N17.9 - Acute kidney failure, unspecified; N18.9 - Chronic kidney disease, unspecified (2) Chronic respiratory failure: Respiratory failure complication: hypoxia Qualified Code(s): J96.11 - Chronic respiratory failure with hypoxia (3) Chronic anemia: (4) UTI (urinary tract infection): Hematuria presence: without hematuria Urinary tract infection type: site unspecified Qualified Code(s): N39.0 - Urinary tract infection, site not specified (5) Benign essential hypertension: (6) Acute on chronic right-sided congestive heart failure: (7) Chronic renal insufficiency, stage IV (severe): Admission and Anticipated Discharge Date Admission Date: January 25, 2021 Supervising Attestation I personally examined the patient and verified all senior points of history and exam, discussed case, and agree with decision making with Amanuel Rothman MS4 Breathing okay, feeling okay overall. Understands plan, comfortable with plan. Vitals noted, in general she is somewhat groggy but awakens a little. No distress. HEENT normocephalic atraumatic mucous membranes moist. Breathing unlabored no accessory muscle use good effort. Extremities show no cyanosis. Neuro shows no focal deficits at rest. CKD stage IV/progressed renal failurehard to really discern that this would be acute renal failure superimposed on CKD is much is probably just progression of her CKD to nearly end-stage. Agree with/appreciate nephrology management. Agree right now there is no acute indications for dialysis, continue to follow electrolytes closely, and follow for any evidence of CHF (currently none). Abnormal chest x-raywith no symptoms, reassuring exam, low inflammatory markers, and her prior history of aspiration as well as Covid, I strongly suspect her chest x-ray is really more that of chronic aspiration findings as well as left over Covid related inflammatory findings or scarring. Continue to follow closely, but no specific treatment appears to be warranted at this point. This is overall appearing stable Right-sided CHF and severe pulmonary hypertensionuncertain if this is primary pulmonary hypertension or secondarywould like to have her followed up for sleep apnea as an outpatient if this has not been done. She does have rather significant pack-year history and this may all be COPD related as well. Continue to follow fluid balance closely, caution in reducing preload too much. Type 2 diabetescurrently controlled with an A1c of 6.4, unfortunately I suspect that a lot of her chronic disease does relate to her diabetes, and I wonder what her control was over prior years. DVT prophylaxisanticoagulated with Coumadin. Follow INR. may need to reverse for procedure Subjective Zahida is a little drowsy this morning after breakfast. She ate all of her breakfast. She denies any shortness of breath or cough, and her nasal cannula is in place. Also denies headache, chest pain, or abdominal pain. Review of Systems Review of Systems: See HPI Physical Exam Physical Exam: GENERAL: wdwg, nad, R leg amputated HEENT: conjunctiva without injection b/l, oropharynx moist, no erythema, no intraoral masses external nose and pinna are normal, nasal cannula in place CHEST: no crackles, no wheezes, rhonchi or rales, good air movement with normal respiratory effort CARDIOVASCULAR: heart regular rate and rhythm, no murmurs, gallops or rubs, 2+ pitting edema ABD: no hepatosplenomegaly or masses, nontender to palpation, nondistended, normal active bowel sounds SKIN: R great toe amputated and bandaged without erythema or warmth, no other lesions visible NEURO: PERRLA, EOMI PSYCH: alert and oriented x 3, affect appropriate for situation Results & Data ([facility]) Vital Signs (Past 12 Hours) Vital Signs Temp Pulse Resp BP Pulse Ox 01/28/21 08:15 36.5 C 60 19 126/81 99 01/28/21 03:31 36.6 C 64 16 131/74 97 01/27/21 23:55 36.5 C 66 18 133/74 98
[2021-01-28] MEDS ORDERED: BUMETANIDE 2 MG in SYRINGE 0 ML IV ONE ×2 (10:15→16:15)
--- NOTE | 2021-01-28 10:22 | Nephrology Progress Note ---
Date of Service January 28, 2021 Assessment & Plan (1) Acute on chronic renal failure: Creatinine stable. Electrolytes acceptable. Remains non-oliguric. No emergent indication for dialysis at this time. Continue IV Bumex to encourage a slightly negative fluid balance. Net -500 ml with 2 mg x 2 doses yesterday. Additional 2 mg IV provided this AM. Dr. Palma should be available on Sunday for permcath placement at that time if needed. I/O's will be documented and metabolic profile repeated tomorrow AM. Medications are currently appropriately dosed for kidney dysfunction. (2) UTI (urinary tract infection): Remains on cefepime. Antibiotics appropriately dosed for kidney dysfunction. Culture + E coli. (3) Chronic anemia: 1 u PRBC transfusion support provided 01/26. [place] [address] units given on 01/27. (4) Benign essential hypertension: BP reasonably controlled. Avoid KWESI/ARB. (5) Chronic renal insufficiency, stage IV (severe): (6) Acute on chronic right-sided congestive heart failure: I would avoid additional IVF and avoid a significantly positive fluid balance. Between her valvular heart disease and kidney dysfunction. Zahida should be kept in a negative fluid balance. Document strict I/O's. (7) Hyponatremia: Limit free water intake to 1.2 L/d. Encourage dietary protein intake. Repeat metabolic profile tomorrow AM. Admission and Anticipated Discharge Date Admission Date: January 25, 2021 Subjective No acute events overnight. Zahida feels well this AM. Appetite decreased this AM but otherwise Zahida states that she feels well. Slept well last night. Breathing comfortably. Review of Systems Review of Systems: All systems reviewed & are unremarkable except as noted in HPI & below Physical Exam Constitutional: + ill appearing; no acute distress Eyes: + anicteric sclerae; no corneal abnormality ENMT: Mouth: + dry oral mucous membranes; no oral mucosal abnormality Neck: normal visual inspection and trachea midline Respiratory: normal respiratory effort Auscultation: lungs clear to auscultation bilaterally and + diminished lung sounds Cardiovascular: Rate/Rhythm: regular rate Heart Sounds: normal S1, normal S2 and + murmur Vessels: + JVD Extremities: normal capillary refill and + edema Musculoskeletal: Extremities: no cyanosis and no clubbing Skin: normal turgor; no lesions Neurologic: Motor/Sensory: no tremor and no asterixis Psychiatric: Orientation: alert and oriented x 3 Results & Data ([facility]) Vital Signs (Past 12 Hours) Vital Signs Temp Pulse Resp BP Pulse Ox 01/28/21 08:15 36.5 C 60 19 126/81 99 01/28/21 03:31 36.6 C 64 16 131/74 97 01/27/21 23:55 36.5 C 66 18 133/74 98 Laboratory Results Laboratory Results - last 24 hr 01/27/21 01/27/21 01/27/21 11:04 16:26 20:04 WBC RBC Hgb Hct MCV MCH MCHC RDW Std Deviation RDW Coeff of Esa Plt Count MPV Immature Gran % (Auto) Neut % (Auto) Lymph % (Auto) Haakon % (Auto) Eos % (Auto) Baso % (Auto) Neut # (Auto) Lymph # (Auto) Haakon # (Auto) Eos # (Auto) Baso # (Auto) Immature Gran # (Auto) PT INR Sodium Potassium Chloride Carbon Dioxide Anion Gap BUN Creatinine Est Cr Clr Drug Dosing Est GFR ( Amer) Est GFR (Non-Af Amer) BUN/Creatinine Ratio Glucose POC Glucose 113 H 126 H 141 H Calcium Phosphorus Albumin 01/28/21 01/28/21 01/28/21 06:35 06:35 06:36 WBC 5.98 RBC 3.20 L Hgb 9.3 L Hct 28.5 L MCV 89.1 MCH 29.1 MCHC 32.6 RDW Std Deviation 49.5 H RDW Coeff of Esa 15.3 H Plt Count 257 MPV 8.8 Immature Gran % (Auto) 0.3 Neut % (Auto) 80.9 Lymph % (Auto) 10.5 Haakon % (Auto) 4.2 Eos % (Auto) 3.8 Baso % (Auto) 0.3 Neut # (Auto) 4.83 Lymph # (Auto) 0.63 L Haakon # (Auto) 0.25 Eos # (Auto) 0.23 Baso # (Auto) 0.02 Immature Gran # (Auto) 0.02 PT 67.7 H INR 7.9 H* Sodium 129 L Potassium 4.9 Chloride 95 L Carbon Dioxide 25 Anion Gap 9.0 BUN 78 H Creatinine 4.32 H Est Cr Clr Drug Dosing 16.8 Est GFR ( Amer) 12.3 Est GFR (Non-Af Amer) 10.6 BUN/Creatinine Ratio 18.0 Glucose 64 L POC Glucose Calcium 8.0 L Phosphorus 6.5 H Albumin 2.0 L 01/28/21 07:55 WBC RBC Hgb Hct MCV MCH MCHC RDW Std Deviation RDW Coeff of Esa Plt Count MPV Immature Gran % (Auto) Neut % (Auto) Lymph % (Auto) Haakon % (Auto) Eos % (Auto) Baso % (Auto) Neut # (Auto) Lymph # (Auto) Haakon # (Auto) Eos # (Auto) Baso # (Auto) Immature Gran # (Auto) PT INR Sodium Potassium Chloride Carbon Dioxide Anion Gap BUN Creatinine Est Cr Clr Drug Dosing Est GFR ( Amer) Est GFR (Non-Af Amer) BUN/Creatinine Ratio Glucose POC Glucose 80 Calcium Phosphorus Albumin PG Care Time/CCT Total # of Minutes Spent Total Time Spent with Patient: Total time spent is greater than 50% in coordination of care (as documented) at patient's floor/unit and/or counseling patient: Coding Level of Care Code 01267 Subseq Hosp Care Lvl 3 Diagnoses Acute on chronic renal failure N17.9; N18.9 Acute renal failure type: unspecified Chronic kidney disease stage: unspecified stage UTI (urinary tract infection) N39.0 Hematuria presence: without hematuria Urinary tract infection type: site unspecified Chronic anemia D64.9 Benign essential hypertension I10 Chronic renal insufficiency, stage IV (severe) N18.4 Acute on chronic right-sided congestive heart failure I50.813 Hyponatremia E87.1 (1) Acute on chronic renal failure Acute renal failure type: unspecified Chronic kidney disease stage: unspecified stage Qualified Code(s): N17.9 - Acute kidney failure, unspecified; N18.9 - Chronic kidney disease, unspecified (2) UTI (urinary tract infection) Hematuria presence: without hematuria Urinary tract infection type: site unspecified Qualified Code(s): N39.0 - Urinary tract infection, site not specified
[2021-01-28] MEDS: LACTULOSE SYRUP 20 GM/30 ML UDC PO SCH (11:29)
--- NOTE | 2021-01-28 16:31 | Billing Data ---
Date of Service January 28, 2021 Coding Level of Care Code 65277 Subseq Hosp Care Lvl 3
[2021-01-28] MEDS: chlorproMAZINE HCL 25 MG TAB PO SCH (21:02)
[2021-01-28] MEDS: traZODone HCL 50 MG TAB PO SCH (21:05)
[2021-01-29 06:24] LABS: Hematocrit (blood only) 28.4 % (37-47)
[2021-01-29 06:39] LABS: INR 4.7 (0.9-1.1); Prothrombin Time 41.9 Seconds (9.0-12.0)
[2021-01-29 06:56] LABS: BUN Creatinine Ratio 17.7 (10-20); Calcium 7.8 mg/dl (8.5-10.1); Creatinine Clr Calc Pharmacy 16.9 ml/min; Est GFR (African American) 12.3 ml/min; Est GFR (Non-African American) 10.6 ml/min; Potassium 4.7 mmol/L (3.5-5.1)
[2021-01-29 06:57] LABS: Phosphorus 7.6 mg/dl (2.5-4.9)
[2021-01-29] MEDS: oxyCODONE HCL IR 5 MG TAB (IMMEDIATE RELEASE) PO PRN ×2 (08:26→21:36)
[2021-01-29] MEDS: LACTULOSE SYRUP 20 GM/30 ML UDC PO SCH (08:27)
[2021-01-29] MEDS: FLUTICASONE FUROATE 100MCG 14 PUFFS/INHALER INH SCH (08:27)
[2021-01-29] MEDS: LIDOCAINE 5% 1 PATCH TD SCH (08:27)
[2021-01-29] MEDS: UMECLIDINIUM/VILANTEROL 62.5/25MCG 7 PUFFS/INHALER INH SCH (08:28)
[2021-01-29] MEDS: INSULIN GLARGINE SOLOSTAR 100 UNITS/ML 3 ML PEN SC SCH ×2 (08:28→21:37)
[2021-01-29] MEDS: NICOTINE 21 MG/24 HR TDSY TD SCH (08:29)
[2021-01-29] MEDS: hydrALAZINE 10 MG TAB PO SCH ×3 (08:30→23:36)
[2021-01-29] MEDS: METOPROLOL SUCC 50MG EXT REL TAB PO SCH ×2 (08:30→23:36)
[2021-01-29] MEDS: ASPIRIN 81 MG ECTAB PO SCH (08:31)
[2021-01-29] MEDS: PANTOprazole 40 MG TAB PO SCH (08:31)
[2021-01-29] MEDS: INSULIN ASPART 100 UNITS/ML 3 ML PEN SC SCH ×4 (08:34→21:37)
[2021-01-29] MEDS: SODIUM BICARBONATE 650 MG TAB PO SCH ×2 (08:34→23:36)
[2021-01-29] MEDS: POLYETHYLENE (MIRALAX) 17 GM PACK PO SCH ×2 (08:36→23:36)
--- NOTE | 2021-01-29 09:35 | Nephrology Progress Note ---
Date of Service January 29, 2021 Assessment & Plan (1) Chronic renal insufficiency, stage IV (severe): * Progressive renal dysfunction, nearing need for HD. Discussed goals of care this morning including HD or maximal conservative medical care. Ms. Garay indicates that her goal is to start HD and have her daughter move from [place] to [place], [place] to take her home and assist in her care. * Patient is clinically euvolemic. Electrolyte balance is acceptable. Hold diuretic today. LE edema is likely related to pulmonary HTN and valvular heart disease * Serum bicarbonate has corrected. Will reduce NaHCO3 to 650 mg po BID * Plan IJ THC insertion Sunday followed by run HD * Recommend correcting INR to ~ 2.0 prior to surgical procedure (2) UTI (urinary tract infection): * E. Coli UTI - resolved (3) Chronic anemia: * 1 u PRBC transfusion provided 01/26 * 01/27: iron sat 33%, ferritin 347 * Epogen 73687 units given on 01/27 (4) Benign essential hypertension: * BP controlled. Continue Metoprolol and Hydralazine (5) Hyponatremia: * Limit free water intake to 1.2 L/d * Monitor PRP Admission and Anticipated Discharge Date Admission Date: January 25, 2021 Subjective Ms. Garay was seen and examined in her hospital room this morning. She was A&O x3 and denied fever, angina, dyspnea or uremic symptoms. 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 She reports that her goals of care are to start HD and have her daughter move from [place] to [place], [place] to take her home and assist in her care. Review of Systems Constitutional: + weakness; no fever Eyes: no problem reported Respiratory: no dyspnea Cardiovascular: + edema; no chest pain and no palpitations Gastrointestinal: no abdominal pain and no nausea Physical Exam Constitutional: + frail appearing; not in distress Eyes: PERRL, conjunctivae normal, anicteric sclerae ENMT: external ear and nose normal, oropharynx normal Neck: trachea midline, no thyromegaly Respiratory: normal respiratory effort, lungs clear to auscultation Cardiovascular: Rate/Rhythm: regular rate and regular rhythm Gastrointestinal (Abdomen): normal bowel sounds, soft, nontender, no hepatosplenomegaly Musculoskeletal: L BKA Results & Data ([facility]) Vital Signs (Past 12 Hours) Vital Signs Temp Pulse Pulse Resp BP Pulse Ox 01/29/21 09:21 36.9 C 61 19 127/76 98 01/29/21 07:28 62 01/29/21 00:00 68 01/28/21 22:29 36.4 C L 65 20 139/76 98 Laboratory Tests 01/29/21 01/29/21 01/29/21 05:48 05:48 05:48 Hgb 9.0 L Hct 28.4 L INR 4.7 H Sodium 129 L Potassium 4.7 Chloride 96 L Carbon Dioxide 25 BUN 76 H Creatinine 4.31 H Glucose 169 H Calcium 7.8 L Phosphorus 7.6 H Albumin 2.0 L PG Care Time/CCT Total # of Minutes Spent Total Time Spent with Patient: Total time spent is greater than 50% in coordination of care (as documented) at patient's floor/unit and/or counseling patient: Coding Level of Care Code 16729 Subseq Hosp Care Lvl 3 Diagnoses Chronic renal insufficiency, stage IV (severe) N18.4 UTI (urinary tract infection) N39.0 Hematuria presence: without hematuria Urinary tract infection type: site unspecified Chronic anemia D64.9 Benign essential hypertension I10 Hyponatremia E87.1 (1) UTI (urinary tract infection) Hematuria presence: without hematuria Urinary tract infection type: site unspecified Qualified Code(s): N39.0 - Urinary tract infection, site not specified
--- NOTE | 2021-01-29 09:36 | Hospitalist Progress Note ---
Date of Service January 29, 2021 Assessment & Plan (1) Acute on chronic renal failure: Acute on chronic renal failure: Elevated Creatinine - 4.41 from baseline1.8-2.4 - Consulted nephrology -No emergent need for dialysis. Advanced CKD at baseline - Will likely require dialysis. Dr. Palma available on Sunday for placement--continue to await this - limit water intake to 1.2L/ day - electrolytes normal - Monitor INR daily- 6.6 01/27 holding warfarin, 7.9 01/28, 4.7 on 01/29 - Consider vitamin K if INR does not reach acceptable level but for now trending down - Per nephrology, diuretics held today as pt euvolemic and has acceptable electrolytes - encourage dietary protein intake - goal of negative fluid balance - continue I/O and repeat BMP - medications dosed for cr. clearance - continue to follow cr, and potassium Right-sided HF - continue to monitor avoiding positive fluid balance - may require diuretics--held today as above UTI - UA with protein, blood, LCE, WBC, but with epithelial cells - previously with cee sensitive Klebsiella UTI on 08/15 - Ceftriaxone given in the ER - Cefepime discontinued 01/27 - UCx with E. coli growth but pt remaines asymptomatic - normal CRP and pro-sofi Concern for pneumonia - Given lack of clinical symptoms, likely findings on imaging remain from previous COVID-19 infection and chronic aspiration - normal CRP and pro-sofi -on baseline oxygen requirement - Ceftriaxone given in the ER Severe Protein-Calorie Malnutrition - Albumin of 2.0 - Consult dietary History of Atrial Fibrillation - Currently in NSR - Monitor on tele - Continue rate control with home metoprolol 50mg po BID IDDM - Continue Lantus 10U BID - ISS - Hypoglycemic protocol - Consult wound care for L great toe amputation Hx of Bipolar Disorder and Anxiety - Continue home ziprasidone 20mg po BID, chlorpromazine 150mg po qhs, and trazodone 25mg po qhs Hx of Anemia - No current signs of bleeding - Hgb close to baseline at 8 on admission, 9.2 01/27 - Per recommendations from nephrology, 1 unit PRBCs on 01/26 - Iron studies normal -Epogen 2000 units given 01/27 Hx of Nicotine Dependence - Continue Nicoderm patch daily FENGI: Heart healthy, carb count, low sodium (<2g), and fluid restriction < 1200mL/day DVT Ppx: Anticoagulated on coumadin Dispo: Med/sug w/ tele Code status: Full code (2) Chronic respiratory failure: (3) Chronic anemia: (4) UTI (urinary tract infection): (5) Benign essential hypertension: (6) Acute on chronic right-sided congestive heart failure: (7) Chronic renal insufficiency, stage IV (severe): Admission and Anticipated Discharge Date Admission Date: January 25, 2021 Supervising Physician Co-Signing Physician Notes I personally examined the patient and verified all senior points of history and exam, discussed case, and agree with decision making with Dr Puckett Breathing okay, feeling okay overall, no new complaints. Understands plan, comfortable with plan. Case discussed with nephrology Vitals noted, in general she is somewhat groggy but awakens a little. No distress. HEENT normocephalic atraumatic mucous membranes moist. Breathing unlabored no accessory muscle use good effort. Extremities show no cyanosis. Neuro shows no focal deficits at rest. CKD stage IV/progressed renal failurehard to really discern that this would be acute renal failure superimposed on CKD is much is probably just progression of her CKD to nearly end-stage. Agree with/appreciate nephrology management. Right now there is no acute indications for dialysis, continue to follow electrolytes closely, and follow for any evidence of CHF (currently none). Abnormal chest x-raywith no symptoms, reassuring exam, low inflammatory markers, and her prior history of aspiration as well as Covid, I strongly suspect her chest x-ray is really more that of chronic aspiration findings as well as left over Covid related inflammatory findings or scarring. Doing well off of antibiotics. Right-sided CHF and severe pulmonary hypertensionuncertain if this is primary pulmonary hypertension or secondarywould like to have her followed up for sleep apnea as an outpatient if this has not been done. She does have rather significant pack-year history and this may all be COPD related as well. Continue to follow fluid balance closely, caution in reducing preload too much. Right now stable Type 2 diabetescurrently controlled with an A1c of 6.4, unfortunately I suspect that a lot of her chronic disease does relate to her diabetes, and I wonder what her control was over prior years. DVT prophylaxisanticoagulated with Coumadin. Follow INR. may need to reverse for procedure, but it is trending down daily. Subjective Patient seen at bedside this morning. She reported no significant complaints. She was concerned about her dialysis and whether this would actually be helpful for extending her life. We discussed that she does have progressive renal dysfunction and is definitely getting very close to an absolute need of hemodialysis. Review of Systems Review of Systems: See subjective Physical Exam Physical Exam: GENERAL: NAD HEENT: Conjunctiva without injection b/l, external nose and pinna are normal, nasal cannula in place CHEST: No crackles, no wheezes, rhonchi or rales, good air movement with normal respiratory effort CARDIOVASCULAR: Heart regular rate and rhythm, no murmurs, gallops or rubs, 2+ pitting edema ABD: No hepatosplenomegaly or masses, nontender to palpation, nondistended, normal active bowel sounds SKIN: R great toe amputated and bandaged without erythema or warmth, no other lesions visible NEURO: PERRLA, EOMI PSYCH: Alert and oriented x 3, affect appropriate for situation Results & Data Results & Data ([facility]) Vital Signs (Past 12 Hours) Vital Signs Temp Pulse Pulse Resp BP Pulse Ox 01/29/21 09:21 36.9 C 61 19 127/76 98 01/29/21 07:28 62 01/29/21 00:00 68 01/28/21 22:29 36.4 C L 65 20 139/76 98 Resident Activity Tracking Resident Involvement: Resident Care Provided Care Provided: Adult Hospital Medicine (1) UTI (urinary tract infection) Hematuria presence: without hematuria Urinary tract infection type: site unspecified Qualified Code(s): N39.0 - Urinary tract infection, site not specified (2) Chronic respiratory failure Respiratory failure complication: hypoxia Qualified Code(s): J96.11 - Chronic respiratory failure with hypoxia (3) Acute on chronic renal failure Acute renal failure type: unspecified Chronic kidney disease stage: unspecified stage Qualified Code(s): N17.9 - Acute kidney failure, unspecified; N18.9 - Chronic kidney disease, unspecified
--- NOTE | 2021-01-29 14:58 | Billing Data ---
Date of Service January 29, 2021 Coding Level of Care Code 36384 Subseq Hosp Care Lvl 3
[2021-01-29] MEDS: chlorproMAZINE HCL 25 MG TAB PO SCH (23:36)
[2021-01-29] MEDS: traZODone HCL 50 MG TAB PO SCH (23:37)
[2021-01-30 06:24] LABS: Hemoglobin 9.3 g/dL (12.0-16.0)
[2021-01-30 06:31] LABS: INR 2.9 (0.9-1.1); Prothrombin Time 27.2 Seconds (9.0-12.0)
[2021-01-30 06:44] LABS: Albumin Level 2.1 gm/dl (3.4-5.0); BUN Creatinine Ratio 19.8 (10-20); Calcium 7.9 mg/dl (8.5-10.1); Creatinine Clr Calc Pharmacy 17.5 ml/min; Est GFR (African American) 12.8 ml/min; Est GFR (Non-African American) 11.1 ml/min; Potassium 4.5 mmol/L (3.5-5.1)
[2021-01-30 06:45] LABS: Phosphorus 6.8 mg/dl (2.5-4.9)
[2021-01-30] MEDS: INSULIN ASPART 100 UNITS/ML 3 ML PEN SC SCH ×4 (08:25→22:01)
[2021-01-30] MEDS: INSULIN GLARGINE SOLOSTAR 100 UNITS/ML 3 ML PEN SC SCH ×2 (08:25→22:02)
[2021-01-30] MEDS: oxyCODONE HCL IR 5 MG TAB (IMMEDIATE RELEASE) PO PRN ×2 (08:28→15:22)
[2021-01-30] MEDS: hydrALAZINE 10 MG TAB PO SCH ×3 (08:29→22:01)
[2021-01-30] MEDS: PANTOprazole 40 MG TAB PO SCH (08:29)
[2021-01-30] MEDS: FLUTICASONE FUROATE 100MCG 14 PUFFS/INHALER INH SCH (08:29)
[2021-01-30] MEDS: ASPIRIN 81 MG ECTAB PO SCH (08:29)
[2021-01-30] MEDS: UMECLIDINIUM/VILANTEROL 62.5/25MCG 7 PUFFS/INHALER INH SCH (08:29)
[2021-01-30] MEDS: METOPROLOL SUCC 50MG EXT REL TAB PO SCH ×2 (08:30→22:02)
[2021-01-30] MEDS: SODIUM BICARBONATE 650 MG TAB PO SCH (08:30)
[2021-01-30] MEDS: NICOTINE 21 MG/24 HR TDSY TD SCH (08:32)
[2021-01-30] MEDS: POLYETHYLENE (MIRALAX) 17 GM PACK PO SCH ×2 (08:32→22:02)
[2021-01-30] MEDS: LACTULOSE SYRUP 20 GM/30 ML UDC PO SCH (08:32)
[2021-01-30] MEDS: LIDOCAINE 5% 1 PATCH TD SCH (08:33)
--- NOTE | 2021-01-30 09:43 | Nephrology Progress Note ---
Date of Service January 30, 2021 Assessment & Plan (1) Chronic renal insufficiency, stage IV (severe): * Progressive renal dysfunction, nearing need for HD. Discussed goals of care again this morning including HD or maximal conservative medical care. Ms. Garay indicates that her goal is to start HD and have her daughter move from [place] to [place], [place] to take her home and assist in her care. She wishes to proceed w/ a trial of dialysis but understands that she can transition to maximal conservative medical care if vascular access/HD/transportation becomes over burdensome * Patient is clinically euvolemic. Electrolyte balance is acceptable. Continue to hold diuretics. LE edema is likely related to pulmonary HTN and valvular heart disease * Serum bicarbonate has corrected. Will stop NaHCO3 tablets * Plan IJ THC insertion Sunday followed by run HD * Recommend correcting INR to ~ 2.0 prior to surgical procedure (2) UTI (urinary tract infection): * E. Coli UTI - resolved (3) Chronic anemia: * 1 u PRBC transfusion provided 01/26 * 01/27: iron sat 33%, ferritin 347 * Epogen 50627 units given on 01/27 (4) Benign essential hypertension: * BP controlled. Continue Metoprolol and Hydralazine (5) Hyponatremia: * Limit free water intake to 1.2 L/d * Monitor PRP Admission and Anticipated Discharge Date Admission Date: January 25, 2021 Subjective Ms. Garay was seen and examined in her hospital room this morning. She was A&O x3 and denied fever, angina, dyspnea or uremic symptoms. Review of Systems Constitutional: + weakness; no fever Eyes: no problem reported Respiratory: no dyspnea Cardiovascular: + edema; no chest pain and no palpitations Gastrointestinal: no abdominal pain Hematologic / Lymphatic: + easy bruising; no easy bleeding Physical Exam Constitutional: + frail appearing; not in distress Eyes: PERRL, conjunctivae normal, anicteric sclerae ENMT: external ear and nose normal, oropharynx normal Neck: trachea midline, no thyromegaly Respiratory: normal respiratory effort, lungs clear to auscultation Cardiovascular: Rate/Rhythm: regular rate and regular rhythm Gastrointestinal (Abdomen): normal bowel sounds, soft, nontender, no hepatosplenomegaly Results & Data ([facility]) Vital Signs (Past 12 Hours) Vital Signs Temp Pulse Resp BP Pulse Ox 01/30/21 07:19 36.6 C 65 18 134/88 95 01/29/21 23:28 36.7 C 65 16 147/85 H 96 Laboratory Tests 01/30/21 01/30/21 01/30/21 06:08 06:08 06:08 Hgb 9.3 L Hct 29.0 L INR 2.9 H Sodium 128 L Potassium 4.5 Chloride 96 L Carbon Dioxide 25 BUN 82 H Creatinine 4.16 H Glucose 175 H Calcium 7.9 L Phosphorus 6.8 H Albumin 2.1 L PG Care Time/CCT Total # of Minutes Spent Total Time Spent with Patient: Total time spent is greater than 50% in coordination of care (as documented) at patient's floor/unit and/or counseling patient: Coding Level of Care Code 64218 Subseq Hosp Care Lvl 3 Diagnoses Chronic renal insufficiency, stage IV (severe) N18.4 UTI (urinary tract infection) N39.0 Hematuria presence: without hematuria Urinary tract infection type: site unspecified Chronic anemia D64.9 Benign essential hypertension I10 Hyponatremia E87.1 (1) UTI (urinary tract infection) Hematuria presence: without hematuria Urinary tract infection type: site unspecified Qualified Code(s): N39.0 - Urinary tract infection, site not specified
--- NOTE | 2021-01-30 12:02 | Hospitalist Progress Note ---
Date of Service January 30, 2021 Assessment & Plan (1) Acute on chronic renal failure: 60 yo female with PMHx of atrial fibrillation, anemia, CKD, HTN, CVA, IDDM, HFpEF, bipolar disorder, and right BKA admitted for wvqcs-hx-ibfptrm renal failure. Niwey-ws-ptugunj renal failure -Cr elevated to 4.41 from baseline (1.8-2.4) -Consulted nephrology -No emergent need for dialysis; plan for dialysis on Sunday -Limit water intake to 1.2L/ day -Currently holding diuresis, though goal is negative fluid balance -Monitor INR daily- holding warfarin, 7.9 (01/28), then 4.7 (01/29), then 2.9 (01/30) -Consider vitamin K if INR does not reach acceptable level but for now trending down -Strict I/O's, daily BMP, dose meds for creatinine clearance, encourage dietary protein intake -Electrolyte abnormalities are acceptable per nephrology (01/30) Right-sided heart failure -Goal net negative fluid balance; currently holding diuresis as above -Weight up 1kg from 01/29 to 01/30 without signs of fluid overload -Continue to monitor UTI -UA with protein, blood, LCE, WBC, but with epithelial cells -UCx with E. coli growth but without symptoms; patient already treated with ceftriaxone (ED) then cefepime (discontinued 01/27) Severe protein-calorie malnutrition -Albumin of 2.0 -Dietary consult ordered, encouraging increased dietary protein intake Atrial fibrillation -NSR since admission -Continue home metoprolol, telemetry monitoring IDDM -Continue lantus 10u BID, ISS, hypoglycemic protocol Bipolar disorder, anxiety -Continue home regimen Anemia -No signs of active bleeding, iron studies normal -Per nephrology recommendations, 1u pRBC given 01/26 with appropriate response, epogen 2000u given 01/27 -Hgb stable/improving since Nicotine dependence -Continue nicotine patch daily FENGI: heart healthy, DM2, low sodium (<2g), and fluid restriction <1.2L/day DVT ppx: warfarin Dispo: med/surg tele Code status: full code (2) Chronic respiratory failure: (3) Chronic anemia: (4) UTI (urinary tract infection): (5) Benign essential hypertension: (6) Acute on chronic right-sided congestive heart failure: (7) Chronic renal insufficiency, stage IV (severe): Admission and Anticipated Discharge Date Admission Date: January 25, 2021 Supervising Physician Co-Signing Physician Notes I personally examined the patient and verified all senior points of history and exam, discussed case, and agree with decision making with Dr Olvera Resting comfortably Vitals noted, in general no distress. HEENT normocephalic atraumatic. Breathing unlabored no accessory muscle use good effort. Extremities show no cyanosis. Neuro shows no focal deficits at rest. CKD stage IV/progressed renal failurehard to really discern that this would be acute renal failure superimposed on CKD is much is probably just progression of her CKD to nearly end-stage. Agree with/appreciate nephrology management. Right now there is no acute indications for dialysis, continue to follow electrolytes closely, and follow for any evidence of CHF (fortunately she has been stable in this regard). Abnormal chest x-raywith no symptoms, reassuring exam, low inflammatory markers, and her prior history of aspiration as well as Covid, I strongly suspect her chest x-ray is really more that of chronic aspiration findings as well as left over Covid related inflammatory findings or scarring. Doing well off of antibiotics. Continue to follow, but I highly doubt we will need to intervene. Right-sided CHF and severe pulmonary hypertensionuncertain if this is primary pulmonary hypertension or secondarywould like to have her followed up for sleep apnea as an outpatient if this has not been done. She does have rather significant pack-year history and this may all be COPD related as well. Continue to follow fluid balance closely, caution in reducing preload too much. Stable in this respect Type 2 diabetescurrently controlled with an A1c of 6.4, unfortunately I suspect that a lot of her chronic disease does relate to her diabetes, and I wonder what her control was over prior years. DVT prophylaxisanticoagulated with Coumadin. Follow INR. Given how much it is trending down daily, I have been holding off on active reversal for the proce dure, so as to make it easier to resume therapeutic levels postop, however if she were to correct more slowly, additional vitamin K could be given. Subjective Patient seen and evaluated at bedside this morning. No acute events overnight. Patient feels well and complains only of mild back pain this morning. Eager for dialysis tomorrow. Patient denies CP, SOB, abdominal pain, nausea, vomiting, lightheadedness, dizziness, weakness, confusion, dysuria, diarrhea, or other symptoms. Review of Systems Review of Systems: See HPI Physical Exam Physical Exam: Constitutional: well-appearing, no acute distress HEENT: NCAT, no conjunctival injection CV: regular rhythm, no murmur appreciated, extremities well-perfused Resp: CTABL, no wheezes/rales/rhonchi appreciated, no increased work of breathing MSK: no gross deformities appreciated Skin: warm, dry, no rash appreciated Neuro: AOx4, no focal neurological deficits appreciated Results & Data Results & Data ([facility]) Vital Signs (Past 12 Hours) Vital Signs Temp Pulse Resp BP Pulse Ox 01/30/21 07:19 36.6 C 65 18 134/88 95 Resident Activity Tracking Resident Involvement: Resident Care Provided Care Provided: Adult Hospital Medicine (1) UTI (urinary tract infection) Hematuria presence: without hematuria Urinary tract infection type: site unspecified Qualified Code(s): N39.0 - Urinary tract infection, site not specified (2) Chronic respiratory failure Respiratory failure complication: hypoxia Qualified Code(s): J96.11 - Chronic respiratory failure with hypoxia (3) Acute on chronic renal failure Acute renal failure type: unspecified Chronic kidney disease stage: unspecified stage Qualified Code(s): N17.9 - Acute kidney failure, unspecified; N18.9 - Chronic kidney disease, unspecified
--- NOTE | 2021-01-30 16:01 | Billing Data ---
Date of Service January 30, 2021 Coding Level of Care Code 05599 Subseq Hosp Care Lvl 1
[2021-01-30] MEDS: chlorproMAZINE HCL 25 MG TAB PO SCH (22:01)
[2021-01-30] MEDS: traZODone HCL 50 MG TAB PO SCH (22:03)
[2021-01-31] MEDS: oxyCODONE HCL IR 5 MG TAB (IMMEDIATE RELEASE) PO PRN ×3 (04:19→18:19)
[2021-01-31] MEDS ORDERED: Nursing to Pharmacy Communication SCH ×2 (05:45→15:15)
[2021-01-31] MEDS: INSULIN ASPART 100 UNITS/ML 3 ML PEN SC SCH ×4 (05:55→21:57)
--- NOTE | 2021-01-31 06:59 | Hospitalist Progress Note ---
Date of Service January 31, 2021 Assessment & Plan (1) Acute on chronic renal failure: 60 yo female with PMHx of atrial fibrillation, anemia, CKD, HTN, CVA, IDDM, HFpEF, bipolar disorder, and right BKA admitted for jekhy-ec-lgizlzv renal failure. Is/Os 440 in 1L out. cumulative 6.2L in. 6.9L out Hdlbi-pc-utfazdc renal failure -Cr elevated to 4.41 from baseline (1.8-2.4) -Consulted nephrology -No emergent need for dialysis; plan for dialysis on Sunday -Limit water intake to 1.2L/ day -Currently holding diuresis, though goal is negative fluid balance -Monitor INR daily- holding warfarin, 7.9 (01/28), then 4.7 (01/29), then 2.9 (01/30) -Consider vitamin K if INR does not reach acceptable level but for now trending down -Strict I/O's, daily BMP, dose meds for creatinine clearance, encourage dietary protein intake -Electrolyte abnormalities are acceptable per nephrology (01/30) Right-sided heart failure -Goal net negative fluid balance; currently holding diuresis as above -Weight up 1kg from 01/29 to 01/30 without signs of fluid overload -Continue to monitor UTI, resolved -UA with protein, blood, LCE, WBC, but with epithelial cells -UCx with E. coli growth but without symptoms; patient already treated with ceftriaxone (ED) then cefepime (discontinued 01/27) Severe protein-calorie malnutrition -Albumin of 2.0 -Dietary consult ordered, encouraging increased dietary protein intake Atrial fibrillation -NSR since admission -Continue home metoprolol IDDM -Continue lantus 10u BID, ISS, hypoglycemic protocol Bipolar disorder, anxiety -Continue home regimen Anemia -No signs of active bleeding, iron studies normal -Per nephrology recommendations, 1u pRBC given 01/26 with appropriate response, epogen 2000u given 01/27 -Hgb stable/improving since Nicotine dependence -Continue nicotine patch daily FENGI: heart healthy, DM2, low sodium (<2g), and fluid restriction <1.2L/day DVT ppx: warfarin Dispo: med/surg Code status: full code (2) Chronic respiratory failure: (3) Chronic anemia: (4) UTI (urinary tract infection): (5) Benign essential hypertension: (6) Acute on chronic right-sided congestive heart failure: (7) Chronic renal insufficiency, stage IV (severe): Admission and Anticipated Discharge Date Admission Date: January 25, 2021 Subjective Patient has low back pain, chronic. Not on home O2. No other complaints. Review of Systems Review of Systems: Constitutional: Denies fever, chills, weight change Eyes: Denies blurry vision, vision changes Cardiovascular: Denies chest pain, palpitations Respiratory: Denies shortness of breath Gastrointestinal: Denies abdominal pain, nausea, vomiting, constipation, diarrhea Genitourinary: Denies urinary symptoms including dysuria Musculoskeletal: Denies weakness, muscle aches/pain, joint aches/pain Neurological: Denies headache, numbness, tingling, focal weakness Physical Exam Physical Exam: General: Grossly A&O. NAD. Cooperative. HEENT: Atraumatic, normocephalic. EOMI Pulm: CTAB. -wheezes, -rales, -rhonchi. No respiratory distress. Cardiac: RRR, -mrg. 2+ LLE edema. Abdominal: Nontender, nondistended, soft. Msk: R knee stump Results & Data Results & Data ([facility]) Vital Signs (Past 12 Hours) Vital Signs Temp Pulse Resp BP Pulse Ox 01/30/21 22:12 36.6 C 67 20 141/90 H 97 (1) UTI (urinary tract infection) Hematuria presence: without hematuria Urinary tract infection type: site unspecified Qualified Code(s): N39.0 - Urinary tract infection, site not specified (2) Chronic respiratory failure Respiratory failure complication: hypoxia Qualified Code(s): J96.11 - Chronic respiratory failure with hypoxia (3) Acute on chronic renal failure Acute renal failure type: unspecified Chronic kidney disease stage: un specified stage Qualified Code(s): N17.9 - Acute kidney failure, unspecified; N18.9 - Chronic kidney disease, unspecified
[2021-01-31] MEDS ORDERED: EPOETIN ALFA 10,000 UNITS/ML VIAL IV ONE (07:00)
[2021-01-31] MEDS ORDERED: SODIUM CHLORIDE 0.9% 1000ML 1,000 ML IV PRN ×2 (07:00→15:09)
[2021-01-31] MEDS ORDERED: IRON SUCROSE 200 MG in SYRINGE 0 ML IV ONE (07:00)
[2021-01-31 07:49] LABS: Hemoglobin 8.9 g/dL (12.0-16.0)
[2021-01-31 07:59] LABS: INR 2.1 (0.9-1.1)
[2021-01-31] MEDS: NICOTINE 21 MG/24 HR TDSY TD SCH (08:14)
[2021-01-31] MEDS: METOPROLOL SUCC 50MG EXT REL TAB PO SCH ×2 (08:15→21:40)
[2021-01-31] MEDS: hydrALAZINE 10 MG TAB PO SCH ×3 (08:16→21:41)
[2021-01-31] MEDS: LIDOCAINE 5% 1 PATCH TD SCH (08:16)
[2021-01-31] MEDS: LACTULOSE SYRUP 20 GM/30 ML UDC PO SCH (08:17)
[2021-01-31] MEDS: PANTOprazole 40 MG TAB PO SCH (08:18)
[2021-01-31] MEDS: FLUTICASONE FUROATE 100MCG 14 PUFFS/INHALER INH SCH (08:19)
[2021-01-31] MEDS: UMECLIDINIUM/VILANTEROL 62.5/25MCG 7 PUFFS/INHALER INH SCH (08:19)
[2021-01-31] MEDS: POLYETHYLENE (MIRALAX) 17 GM PACK PO SCH ×2 (08:19→21:52)
[2021-01-31 08:21] LABS: BUN Creatinine Ratio 18.8 (10-20); Calcium 7.9 mg/dl (8.5-10.1); Creatinine Clr Calc Pharmacy 17.6 ml/min; Est GFR (African American) 12.9 ml/min; Est GFR (Non-African American) 11.1 ml/min
[2021-01-31 08:22] LABS: Phosphorus 6.3 mg/dl (2.5-4.9)
[2021-01-31] MEDS: INSULIN GLARGINE SOLOSTAR 100 UNITS/ML 3 ML PEN SC SCH ×2 (08:22→21:58)
--- NOTE | 2021-01-31 09:12 | Nephrology Progress Note ---
Date of Service January 31, 2021 Assessment & Plan (1) Chronic renal insufficiency, stage IV (severe): * Progressive renal dysfunction, nearing need for HD. Discussed goals of care including HD or maximal conservative medical care. Ms. Garay indicates that her goal is to start HD and have her daughter move from [place] to [place]. Her daughter will move in with her and provide ongoing care. She wishes to proceed w/ a trial of dialysis but understands that she can transition to maximal conservative medical care if vascular access/HD/transportation becomes overwhelming * Patient is clinically euvolemic. Electrolyte balance is acceptable. Continue to hold diuretics. LE edema is likely related to pulmonary HTN and valvular heart disease * Serum bicarbonate has corrected. NaHCO3 tablets have been stopped * Plan IJ THC insertion this morning followed by 1st run HD * Will consult discharge planning to set up outpatient HD at [facility] (Dr. Hollis) * INR 2.1 this am (2) UTI (urinary tract infection): * E. Coli UTI - resolved (3) Chronic anemia: * 1 u PRBC transfusion provided 01/26 * 01/27: iron sat 33%, ferritin 347 * Epogen 26802 units given on 01/27 (4) Benign essential hypertension: * BP controlled. Continue Metoprolol and Hydralazine (5) Hyponatremia: * Limit free water intake to 1.2 L/d * Monitor PRP Admission and Anticipated Discharge Date Admission Date: January 25, 2021 Subjective Ms. Garay was seen and examined in her hospital room this morning. She was A&O x3 and denied fever, angina, dyspnea or uremic symptoms. Review of Systems Constitutional: + weakness; no fever Eyes: no problem reported Respiratory: no dyspnea Cardiovascular: + edema; no chest pain and no palpitations Gastrointestinal: no abdominal pain and no nausea Hematologic / Lymphatic: + easy bruising; no easy bleeding Physical Exam Constitutional: + frail appearing; not in distress Eyes: PERRL, conjunctivae normal, anicteric sclerae ENMT: external ear and nose normal, oropharynx normal Neck: trachea midline, no thyromegaly Respiratory: normal respiratory effort, lungs clear to auscultation Cardiovascular: Rate/Rhythm: regular rate and regular rhythm Gastrointestinal (Abdomen): normal bowel sounds, soft, nontender, no hepatosplenomegaly Results & Data ([facility]) Vital Signs (Past 12 Hours) Vital Signs Temp Pulse Resp BP Pulse Ox 01/31/21 07:23 36.5 C 67 17 124/84 100 01/30/21 22:12 36.6 C 67 20 141/90 H 97 Laboratory Tests 01/31/21 01/31/21 01/31/21 07:31 07:31 07:31 Hgb 8.9 L Hct 28.0 L INR 2.1 H Sodium 130 L Potassium 5.0 Chloride 97 L Carbon Dioxide 25 BUN 78 H Creatinine 4.15 H Glucose 164 H Laboratory Tests 01/31/21 07:31 Est GFR (Non-Af Amer) 11.1 PG Care Time/CCT Total # of Minutes Spent Total Time Spent with Patient: Total time spent is greater than 50% in coordination of care (as documented) at patient's floor/unit and/or counseling patient: Coding Level of Care Code 54776 Subseq Hosp Care Lvl 3 Diagnoses Chronic renal insufficiency, stage IV (severe) N18.4 UTI (urinary tract infection) N39.0 Hematuria presence: without hematuria Urinary tract infection type: site unspecified Chronic anemia D64.9 Benign essential hypertension I10 Hyponatremia E87.1 (1) UTI (urinary tract infection) Hematuria presence: without hematuria Urinary tract infection type: site unspecified Qualified Code(s): N39.0 - Urinary tract infection, site not specified
--- NOTE | 2021-01-31 09:25 | Medical Student Progress Note ---
Date of Service January 31, 2021 Assessment & Plan (1) Chronic renal insufficiency, stage IV (severe): (2) UTI (urinary tract infection): Hematuria presence: without hematuria Urinary tract infection typ e: site unspecified Qualified Code(s): N39.0 - Urinary tract infection, site not specified (3) Chronic anemia: (4) Benign essential hypertension: (5) Hyponatremia: (6) Acute on chronic right-sided congestive heart failure: (7) Acute on chronic renal failure: 60 yo female with PMHx of atrial fibrillation, anemia, CKD, HTN, CVA, IDDM, HFpEF, bipolar disorder, and right BKA admitted for ezubi-kj-djmqmnn renal failure. Hwdnw-zh-ifeercb renal failure, secondary to diabetic nephropathy -Cr elevated to 4.41 from baseline on admission (1.8-2.4), has remained around this level during hospitalization -Consulted nephrology -No emergent need for dialysis; scheduled for tmr -Limit water intake to 1.2L/ day -Currently holding diuresis, though goal is negative fluid balance -Monitor INR daily- holding warfarin, 7.9 (01/28), then 4.7 (01/29), then 2.9 (01/30), then 2.1 (01/31) -Restart warfarin following catheter placement -Strict I/O's, daily BMP, dose meds for creatinine clearance, encourage dietary protein intake -Electrolyte abnormalities are acceptable per nephrology (01/31) -Serum bicarbonate has corrected. NaHCO3 tablets have been stopped Chronic right-sided heart failure -Goal net negative fluid balance; currently holding diuresis as above -Weight up 1kg from 01/29 to 01/30 without signs of fluid overload -Continue to monitor - today: 440 In/ 1000 Out, cumulative: 6573ml In/ 7301ml Out UTI- RESOLVED -UCx with E. coli growth but without symptoms; patient already treated with ceftriaxone (ED) then cefepime (discontinued 01/27) Severe protein-calorie malnutrition -Albumin of 2.0 -Dietary consult ordered, encouraging increased dietary protein intake Atrial fibrillation -NSR since admission -Continue home metoprolol IDDM -Increase lantus 8u to 10u BID, ISS, hypoglycemic protocol Bipolar disorder, anxiety -Continue home regimen Anemia -No signs of active bleeding, iron studies normal -Per nephrology recommendations, 1u pRBC given 01/26 with appropriate response, epogen 2000u given 01/27 -Hgb stable/improving since Nicotine dependence -Continue nicotine patch daily FENGI: heart healthy, DM2, low sodium (<2g), and fluid restriction <1.2L/day DVT ppx: warfarin held Dispo: med/surg Code status: full code Acute renal failure type: unspecified Chronic kidney disease stage: unspecified stage Qualified Code(s): N17.9 - Acute kidney failure, unspecified; N18.9 - Chronic kidney disease, unspecified (8) Chronic respiratory failure: Respiratory failure complication: hypoxia Qualified Code(s): J96.11 - Chronic respiratory failure with hypoxia Admission and Anticipated Discharge Date Admission Date: January 25, 2021 Supervising Attestation Medical Student Supervision Note: I was personally present during medical student patient encounter and independently interviewed and examined the patient and verified the senior history and physical, reviewed labs and image studies, discussed the case with Basia Rothman and agree with the findings and care plan. For hemodialysis catheter placement followed by dialysis. Miriam Teague is resting in bed this morning awaiting dialysis later today. Other then being hungry from NPO, she is feeling well. Denies shortness of breath or cough. Review of Systems Review of Systems: Constitutional: Denies fever, chills, Cardiovascular: Denies chest pain, palpitations Respiratory: Denies shortness of breath Gastrointestinal: Denies abdominal pain, nausea, vomiting, constipation, diarrhea Genitourinary: Denies urinary symptoms including dysuria Musculoskeletal: Endorses chronic back pain Neurological: Denies headache Physical Exam Physical Exam: GENERAL: nad, R leg amputated HEENT: conjunctiva without injection b/l, oropharynx moist, no erythema, no intraoral masses external nose and pinna are normal, nasal cannula in place CHEST: no crackles, bl wheezes appreciated, norhonchi or rales, good air movement with normal respiratory effort CARDIOVASCULAR: heart regular rate and rhythm, no murmurs, gallops or rubs, 2+ pitting edema ABD: no hepatosplenomegaly or masses, nontender to palpation, nondistended, normal active bowel sounds SKIN: L great toe amputated and bandaged without erythema or warmth, no other lesions visible NEURO: PERRLA, EOMI PSYCH: alert and oriented x 3, affect appropriate for situation Results & Data ([place]) Vital Signs (Past 12 Hours) Vital Signs Temp Pulse Resp BP Pulse Ox 01/31/21 07:23 36.5 C 67 17 124/84 100 01/30/21 22:12 36.6 C 67 20 141/90 H 97
[2021-01-31] MEDS: CALCIUM ACETATE 667 MG CAP/TAB PO SCH ×2 (11:38→18:18)
[2021-01-31 13:21] LABS: Hepatitis B Surface Ab Quant 279.21 mIU/mL (>or=10mIU/mL Immune); Hepatitis B Surface Antibody Immune
[2021-01-31 13:32] LABS: Hepatitis B Surf Ag Rflx Conf Neg (Neg)
[2021-01-31] MEDS ORDERED: INSULIN ASPART 100 UNITS/ML 3 ML PEN SC SCH (18:00)
[2021-01-31] MEDS: traZODone HCL 50 MG TAB PO SCH (21:39)
[2021-01-31] MEDS: chlorproMAZINE HCL 25 MG TAB PO SCH (21:41)
[2021-02-01] MEDS: oxyCODONE HCL IR 5 MG TAB (IMMEDIATE RELEASE) PO PRN ×4 (05:14→23:30)
[2021-02-01] MEDS ORDERED: ceFAZolin 2000MG 2,000 MG/15 ML SYR IV SCH (06:00)
[2021-02-01] MEDS ORDERED: SODIUM CHLORIDE 0.9% 1000ML 1,000 ML IV PRN ×2 (07:00)
[2021-02-01] MEDS: ACETAMINOPHEN 325 MG TAB PO PRN ×3 (07:46→19:52)
[2021-02-01] MEDS: CALCIUM ACETATE 667 MG CAP/TAB PO SCH ×3 (07:47→17:39)
[2021-02-01] MEDS: LIDOCAINE 5% 1 PATCH TD SCH (07:47)
[2021-02-01] MEDS: NICOTINE 21 MG/24 HR TDSY TD SCH (07:48)
[2021-02-01] MEDS: NEPHROCAPS PO SCH (07:49)
[2021-02-01] MEDS: PANTOprazole 40 MG TAB PO SCH (07:49)
[2021-02-01 07:50] LABS: Hematocrit (blood only) 28.7 % (37-47); Hemoglobin 9.2 g/dL (12.0-16.0); Mean Corpuscular Hemoglobin 29.8 pg (25-34); Mean Corpuscular Hgb Conc 32.1 g/dL (32-36); Mean Corpuscular Volume 92.9 fL (80-100); Mean Platelet Volume 8.8 fL (7.4-10.4); Platelet Count 299 K/uL (130-400); RDW Coefficient of Variation 15.9 % (11.5-14.5); RDW Standard Deviation 52.6 fL (36.4-46.3); Red Blood Count 3.09 M/uL (4.2-5.4); White Blood Count 7.63 K/uL (4.8-10.8)
[2021-02-01] MEDS: METOPROLOL SUCC 50MG EXT REL TAB PO SCH ×2 (07:50→20:00)
[2021-02-01] MEDS: hydrALAZINE 10 MG TAB PO SCH ×3 (07:50→19:51)
[2021-02-01] MEDS: POLYETHYLENE (MIRALAX) 17 GM PACK PO SCH ×2 (07:51→20:00)
[2021-02-01] MEDS: LACTULOSE SYRUP 20 GM/30 ML UDC PO SCH (07:51)
[2021-02-01] MEDS: UMECLIDINIUM/VILANTEROL 62.5/25MCG 7 PUFFS/INHALER INH SCH (07:52)
[2021-02-01] MEDS: FLUTICASONE FUROATE 100MCG 14 PUFFS/INHALER INH SCH (07:52)
[2021-02-01 08:02] LABS: INR 1.5 (0.9-1.1); Prothrombin Time 15.2 Seconds (9.0-12.0)
[2021-02-01 08:24] LABS: Albumin Level 2.1 gm/dl (3.4-5.0); BUN Creatinine Ratio 20.1 (10-20); Calcium 8.1 mg/dl (8.5-10.1); Creatinine Clr Calc Pharmacy 18.1 ml/min; Est GFR (African American) 13.3 ml/min; Est GFR (Non-African American) 11.4 ml/min
--- NOTE | 2021-02-01 08:41 | Consultation ---
Date of Consultation February 01, 2021 Assessment & Plan (1) End stage renal disease: Pt scheduled for permcath insertion later this morning by Dr Palma. Procedure discussed with pt, she is agreeable. Will schedule outpt for vein mapping and office visit to discuss AVF creation. Patient was seen, examined, and chart reviewed. Agree with exam and treatment plan of the Vascular PA. History of Present Illness Reason for Consultation: ESRD, need permcath Attending Physician: Mima Aparicio MD History of Present Illness 60 yo f with hx of CKD, a fib, PAD, DMII, HTN, CHF, and R BKA, admitted last week with acute worsening of renal disease, now requiring HD, seen in consultation today for permcath insertion. Pt states no prior HD or catheters in past. Admits fatigue/malaise, edema, FRAUSTO. Denies PACE, fever, chest pain, SOB at rest, abd pain, N/V, rest pain, claudication, other complaints. Allergies Allergy/AdvReac Type Severity Reaction Status Date / Time shellfish derived Allergy Unknown Unknown Verified 01/25/21 11:09 Home Medications Medication Instructions Recorded Confirmed Type cholecalciferol (vitamin D3) 50 50 mcg PO QAM 08/03/20 01/25/21 History mcg (2,000 unit) capsule lidocaine 5 % topical patch 1 patch TOPICAL DAILY 08/03/20 01/25/21 History oxycodone 5 mg tablet 5 mg PO Q6H PRN 08/03/20 01/25/21 History sodium bicarbonate 650 mg tablet 650 mg PO WM 08/03/20 01/25/21 History ziprasidone HCl 20 mg capsule 20 mg PO BID 08/03/20 01/25/21 History Fleet Enema 118 ml RI DIRECTED PRN 10/07/20 01/25/21 History Trelegy Ellipta 1 inh INHALATION DAILY 10/07/20 01/25/21 History acetaminophen 650 mg PO Q6H PRN MDD 3 GMS 10/07/20 01/25/21 History APAP/24 HOURS aspirin [Aspirin Low Dose] 81 mg PO QAM 10/07/20 01/25/21 History bisacodyl [Dulcolax (bisacodyl)] 10 mg RI DIRECTED PRN 10/07/20 01/25/21 History chlorpromazine 150 mg PO HS 10/07/20 01/25/21 History metoprolol succinate 50 mg PO BID 10/07/20 01/25/21 History hydralazine 10 mg PO TID #30 tab 10/19/20 01/25/21 Rx lactulose 30 ml PO DAILY #120 ml 10/19/20 01/25/21 Rx insulin aspart U-100 100 unit/mL 12 unit SUBCUT WM ml 01/10/21 01/25/21 History subcutaneous solution insulin glargine 100 unit/mL (3 30 unit SUBCUT QAM ml 01/10/21 01/25/21 History mL) subcutaneous pen omeprazole 20 mg capsule,delayed 20 mg PO DAILY 01/10/21 01/25/21 History release bumetanide [Bumex] 1 mg PO BID 01/25/21 01/25/21 History nicotine [Nicoderm CQ] 1 patch TRANSDERMAL UD 01/25/21 01/25/21 History nicotine [Nicoderm] 1 patch TRANSDERMAL DAILY 01/25/21 01/25/21 History polyethylene glycol 3350 17 g PO BID 01/25/21 01/25/21 History potassium chloride [Klor-Con M10] 10 meq PO Q OTHER DAY 01/25/21 01/25/21 History trazodone 50 mg tablet 50 mg PO HS tab 01/25/21 01/25/21 History warfarin [Coumadin] 3 mg PO HS 01/25/21 01/25/21 History Patient History Medical History (Updated 02/01/21 @ 08:40 by Radha Belcher PA-C) Acute alteration in mental status Acute kidney injury Amputation of left great toe Anemia Benign essential hypertension delivery delivered Chronic renal insufficiency, stage IV (severe) CVA (cerebral vascular accident) Diabetic nephropathy End stage renal disease Hypoglycemia Hypoxemia Insomnia Pneumonia due to 2019 novel coronavirus Vitamin D deficiency Surgical History Hx of right BKA Social History Smoking Status: Former smoker Tobacco Type: Cigarettes packs per day: 2; Years Smoked: 40; Cigarettes Per Day: 2 PPD; Smoking End Date: 2019; Second Hand Exposure: No; Tobacco Cessation Education Requested by Patient: No Hx Alcohol Use: No Hx Substance Use: No Preferred Language: Ukrainian Communication Ability: Effective Data Communications Engineer Required: No Beliefs That Will Affect Care: None marital status: Unknown Current Living Situation: Personal Care Facility Current Living Situation Comment: [facility] current occupational status: unemployed and disabled 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 How many Children do You have: 2 Other Information That Helps Us Care for You: No Feels Safe at Home: Yes Safety Concerns: Feels Safe At This Time caffeine: Yes Dental Care, Regularly: No Assistive Devices: None Review of Systems Review of Systems: All systems reviewed & are unremarkable except as noted in HPI & below Physical Exam Constitutional: WD/WN, vitals as above + obese, cooperative and comfortable; not in distress Neck: trachea midline Respiratory: normal respiratory effort and able to speak in complete sentences; no respiratory distress Auscultation: + diminished lung sounds Cardiovascular: Rate/Rhythm: + irregularly irregular Vessels: femoral pulses present, dorsalis pedis pulses present (RLE BKA, LLE +1), brachial pulses present and radial pulses present Extremities: normal capillary refill and + edema Gastrointestinal (Abdomen): normal bowel sounds, soft, nontender, no hepatosplenomegaly Musculoskeletal: no cyanosis or clubbing, extremities motor strength 5/5 (RLE BKA) Extremities: + amputation noted Skin: no rashes, warm and dry Neurologic: moves all extremities and awake; not confused Psychiatric: A+Ox3, euthymic affect Results & Data ([facility]) Vital Signs (Past 12 Hours) Vital Signs Temp Pulse Resp BP BP Pulse Ox 02/01/21 07:17 37 C 66 16 140/87 98 01/31/21 22:29 36.6 C 68 20 136/89 2 L
--- NOTE | 2021-02-01 08:43 | Nephrology Progress Note ---
Date of Service February 01, 2021 Assessment & Plan (1) Chronic renal insufficiency, stage IV (severe): * Progressive renal dysfunction, nearing need for HD. Discussed goals of care including HD or maximal conservative medical care. Ms. Garay indicates that her goal is to start HD and have her daughter move from [place] to [place]. Her daughter will move in with her and provide ongoing care. She wishes to proceed w/ a trial of dialysis but understands that she can transition to maximal conservative medical care if vascular access/HD/transportation becomes overwhelming * Patient is clinically euvolemic. Electrolyte balance is acceptable. Continue to hold diuretics. LE edema is likely related to pulmonary HTN and valvular heart disease * Plan IJ THC insertion this morning followed by 1st run HD * Discharge planning has been consulted to set up outpatient HD at [facility] (Dr. Hollis) * INR 1.5 this am (2) Chronic anemia: * 1 u PRBC transfusion provided 01/26 * 01/27: iron sat 33%, ferritin 347 * Epogen 60421 units given on 01/27 (3) Benign essential hypertension: * BP controlled. Continue Metoprolol and Hydralazine (4) Hyponatremia: * Limit free water intake to 1.2 L/d * Monitor PRP Admission and Anticipated Discharge Date Admission Date: January 25, 2021 Subjective Ms. Garay was seen and examined in her hospital room this morning. She was A&O x3 and denied fever, angina, dyspnea or uremic symptoms. She is anxious to have her THC placed and start HD. Review of Systems Constitutional: + weakness; no fever Eyes: no problem reported Respiratory: no dyspnea Cardiovascular: + edema; no chest pain and no palpitations Gastrointestinal: no abdominal pain and no nausea Physical Exam Constitutional: + frail appearing; not in distress Eyes: PERRL, conjunctivae normal, anicteric sclerae ENMT: external ear and nose normal, oropharynx normal Neck: trachea midline, no thyromegaly Respiratory: normal respiratory effort, lungs clear to auscultation Cardiovascular: Rate/Rhythm: regular rate and regular rhythm Gastrointestinal (Abdomen): normal bowel sounds, soft, nontender, no hepatosplenomegaly Results & Data ([facility]) Vital Signs (Past 12 Hours) Vital Signs Temp Pulse Resp BP BP Pulse Ox 02/01/21 07:17 37 C 66 16 140/87 98 01/31/21 22:29 36.6 C 68 20 136/89 2 L Laboratory Tests 02/01/21 07:25 INR 1.5 H Laboratory Tests 02/01/21 02/01/21 07:25 07:25 WBC 7.63 Hgb 9.2 L Hct 28.7 L Plt Count 299 Sodium 126 L Potassium 5.0 Chloride 95 L Carbon Dioxide 24 BUN 81 H Creatinine 4.05 H Glucose 223 H Calcium 8.1 L Phosphorus 6.0 H Albumin 2.1 L PG Care Time/CCT Total # of Minutes Spent Total Time Spent with Patient: Total time spent is greater than 50% in coordination of care (as documented) at patient's floor/unit and/or counseling patient: Coding Level of Care Code 49825 Subseq Hosp Care Lvl 3 Diagnoses Chronic renal insufficiency, stage IV (severe) N18.4 Chronic anemia D64.9 Benign essential hypertension I10 Hyponatremia E87.1
[2021-02-01] MEDS ORDERED: LIDOCAINE 1% LOCAL 20 ML VIAL ONE ×2 (09:37→10:15)
[2021-02-01] MEDS ORDERED: HEPARIN SOD (PORCINE) 5,000 UNITS/ML VIAL ONE (09:37)
[2021-02-01] MEDS ORDERED: fentaNYL citrate 100 MCG/2 ML VIAL ONE (09:55)
[2021-02-01] MEDS ORDERED: MIDAZOLAM HCL 1 MG/ML 2ML VIAL ONE (09:55)
--- NOTE | 2021-02-01 10:32 | Operative Report ---
Post Operative Report Pre & Post Diagnosis Operation Date: 02/01/21 10:20 Pre-Op Diagnosis: End Stage Renal Disease Post-Op Diagnosis: End Stage Renal Disease I identified the patient and participated in the time-out.: Yes Procedure Operation Date: 02/01/21 10:20 Actual Procedures p Perm Cath Insertion, Right Interal Jugular Vein, Ultrasound Localization of Right Internal Jugular Vein, Fluoroscopy for Positioning, Moderate sedation [id number](Right) - Octavio Palma MD Surgeon Octavio Palma MD [employer] Super[employer] none Estimated Blood Loss 10 Findings Consistent with Post-Op Diagnosis Specimens none Anesthesia Type RN Sedation Complications none Disposition Accompanied Patient To Recovery: No Disposition: Recovery Room Indications This is a 60-year-old female with end-stage renal disease in need of urgent dialysis. Insertion of a PermCath was recommended. I have discussed the risks options and benefits of the procedure with the patient. The patient understands the risks options and benefits and agrees to the procedure. Description of Procedure Patient was taken to the angio suite and placed in the supine position. The right side of the neck and chest wall were prepped and draped in a sterile manner. The patient was identified and a timeout performed. Local anesthesia was then administered to the appropriate areas of the neck and chest wall. Ultrasound was then used to locate the right internal jugular vein. The vein compressed easily, had no filing defects, and was patent. The vein was then punctured under direct ultrasound imaging. A guidewire was then passed centrally under fluoroscopic imaging. A stab wound was then made in the anterior chest wall and a 19 cm permcath was passed from the stab wound on the chest wall to the puncture site on the neck. The puncture site was then dilated till the 14Fr peel away sheath was inserted. The permcath was then inserted through the sheath to a central position in the distal superior vena cava. The peel away sheath was then removed. The catheter was then sutured in place using nylon sutures. The puncture was then closed using a 4-0 Vicryl subcuticular suture. Dermabond was used for a dressing on the puncture site. Both ports aspirated and flushed easily and were then packed with heparin. A sterile dressing was applied to the catheter. The patient left the operation room in satisfactory condition and tolerated the procedure well. All needle and sponge counts were correct at the end of the procedure. I attest to the content of the Intraoperative Record and any orders documented therein. Any exceptions are noted below.
[2021-02-01] MEDS ORDERED: ARISTA ABSORBABLE HEMOSTAT 3GM TOP ONE (10:45)
[2021-02-01] MEDS: INSULIN ASPART 100 UNITS/ML 3 ML PEN SC SCH ×4 (13:49→20:39)
[2021-02-01] MEDS: INSULIN GLARGINE SOLOSTAR 100 UNITS/ML 3 ML PEN SC SCH ×2 (14:27→20:38)
--- NOTE | 2021-02-01 16:50 | Hospitalist Progress Note ---
Date of Service February 01, 2021 Assessment & Plan (1) Acute on chronic renal failure: 60 yo female with PMHx of atrial fibrillation, anemia, CKD, HTN, CVA, IDDM, HFpEF, bipolar disorder, and right BKA admitted for khbfz-su-xeehdej renal failure. Stable. Spkkd-to-zmnpwyf renal failure - Cr elevated from baseline (1.8-2.4) to 4s and remains at low-mid 4s - IJ THC insertion on 02/01 followed by 1st run HD. 2L dialyzed. - defer restarting warfarin on 02/01 because of bleeding around dialysis catheter site - daily BMP. will check CBC Right-sided heart failure, chronic -Goal net negative fluid balance; - Nephro to manage fluid balance with dialysis Hyponatremia, chronic and asymptomatic - 128 at admission. 126 today. - workup not pursued admission but most likely 2/2 renal failure - follow daily BMP IDDM -BSGs elevated to 200s and 300s. continue checking ACHS -02/01 increased lantus from 10u BID to 12u BID. tightened carb ratio from 1:16g to 1:12g -Continue ISS, hypoglycemic protocol. BSG ACHS UTI, resolved -UCx with E. coli growth but without symptoms; patient already treated with ceftriaxone (ED) then cefepime (discontinued 01/27) Severe protein-calorie malnutrition -Dietary consult, encouraging increased dietary protein intake Atrial fibrillation -NSR since admission, continue home metoprolol Bipolar disorder, anxiety -Continue home regimen Anemia -No signs of active bleeding, iron studies normal -Per nephrology recommendations, 1u pRBC given 01/26 with appropriate response, epogen 2000u given 01/27 -Hgb stable/improving since Nicotine dependence -Continue nicotine patch daily FENGI: dialysis renal, DM2, and fluid restriction <1.2L/day DVT ppx: warfarin held, likely restart on 02/02 Dispo: med/surg Code status: full code (2) Chronic respiratory failure: (3) Chronic anemia: (4) UTI (urinary tract infection): (5) Benign essential hypertension: (6) Acute on chronic right-sided congestive heart failure: (7) Chronic renal insufficiency, stage IV (severe): (8) Hyponatremia: Admission and Anticipated Discharge Date Admission Date: January 25, 2021 Supervising Physician Co-Signing Physician Notes Resident Physician Supervision Note: I independently interviewed and examined the patient and verified the senior history and physical, reviewed labs and image studies and agree with resident Dr. Galicia findings and care plan. Subjective Patient's main complaint this morning is her chronic low back. She is thirsty because NPO waiting for dialysis placement. No other complaints. Last BM 2 days ago. PM update: patient reports some bleeding at catheter site. Nursing staff applied gauze/bandage. Review of Systems Review of Systems: Constitutional: Denies fever, chills, weight change Eyes: Denies blurry vision, vision changes Cardiovascular: Denies chest pain, palpitations Respiratory: Denies shortness of breath Gastrointestinal: Denies abdominal pain, nausea, vomiting, diarrhea. + constipation. Genitourinary: Denies urinary symptoms including dysuria Musculoskeletal: Denies weakness, muscle aches/pain, joint aches/pain Neurological: Denies headache, numbness, tingling, focal weakness Physical Exam Physical Exam: General: Grossly A&O. NAD. Cooperative. HEENT: Atraumatic, normocephalic. Pulm: Anterior lung shepherd have diffuse expiratory rhonchi. No respiratory distress. Cardiac: RRR, 2/6 systolic murmur at aortic and pulmonic regions. Radial pulses intact and symmetrical. 2+ left lower extremity edema. Abdominal: Nontender, nondistended, soft. Integumentary: R knee stump. PM update: Small amount of blood oozing from R IJ dialysis catheter. Results & Data Results & Data ([facility]) Vital Signs (Past 12 Hours) Vital Signs Temp Pulse Pulse Pulse Resp BP BP 02/01/21 15:16 36.4 C L 65 16 135/86 02/01/21 13:27 36.7 C 61 16 02/01/21 13:15 36.5 C 61 128/81 02/01/21 13:00 60 128/68 02/01/21 12:40 61 118/75 02/01/21 12:20 61 115/76 02/01/21 12:00 61 126/70 02/01/21 11:40 61 136/87 02/01/21 11:20 63 135/81 02/01/21 11:03 36.5 C 63 02/01/21 10:31 69 16 02/01/21 10:28 69 16 02/01/21 10:20 67 16 02/01/21 10:15 66 16 02/01/21 10:10 66 16 02/01/21 10:05 66 18 02/01/21 09:36 36.5 C 66 18 151/92 H 02/01/21 07:17 37 C 66 16 140/87 BP Pulse Ox 02/01/21 15:16 99 02/01/21 13:27 129/84 96 02/01/21 13:15 02/01/21 13:00 02/01/21 12:40 02/01/21 12:20 02/01/21 12:00 02/01/21 11:40 02/01/21 11:20 02/01/21 11:03 02/01/21 10:31 167/99 H 98 02/01/21 10:28 139/95 98 02/01/21 10:20 141/106 H 98 02/01/21 10:15 144/115 H 100 02/01/21 10:10 161/102 H 100 02/01/21 10:05 145/100 H 100 02/01/21 09:36 100 02/01/21 07:17 98 Resident Activity Tracking Resident Involvement: Resident Care Provided Care Provided: Adult Hospital Medicine (1) UTI (urinary tract infection) Hematuria presence: without hematuria Urinary tract infection type: site unspecified Qualified Code(s): N39.0 - Urinary tract infection, site not specified (2) Chronic respiratory failure Respiratory failure complication: hypoxia Qualified Code(s): J96.11 - Chronic respiratory failure with hypoxia (3) Acute on chronic renal failure Acute renal failure type: unspecified Chronic kidney disease stage: unspecified stage Qualified Code(s): N17.9 - Acute kidney failure, unspecified; N18.9 - Chronic kidney disease, unspecified
[2021-02-01] MEDS: chlorproMAZINE HCL 25 MG TAB PO SCH (19:48)
[2021-02-01] MEDS: traZODone HCL 50 MG TAB PO SCH (20:17)
[2021-02-02] MEDS: oxyCODONE HCL IR 5 MG TAB (IMMEDIATE RELEASE) PO PRN ×3 (06:22→18:09)
[2021-02-02 06:28] LABS: Hematocrit (blood only) 18.8 % (37-47); Hemoglobin 6.1 g/dL (12.0-16.0); Mean Corpuscular Hemoglobin 30.2 pg (25-34); Mean Corpuscular Hgb Conc 32.4 g/dL (32-36); Mean Corpuscular Volume 93.1 fL (80-100); Mean Platelet Volume 8.7 fL (7.4-10.4); Platelet Count 250 K/uL (130-400); RDW Standard Deviation 52.8 fL (36.4-46.3); Red Blood Count 2.02 M/uL (4.2-5.4); White Blood Count 6.21 K/uL (4.8-10.8)
[2021-02-02 06:36] LABS: INR 1.4 (0.9-1.1); Partial Thromboplastin Ratio 1.3; Partial Thromboplastin Time 33.6 Seconds (21.0-31.0)
[2021-02-02 06:48] LABS: Albumin Level 1.8 gm/dl (3.4-5.0); BUN Creatinine Ratio 19.7 (10-20); Calcium 7.6 mg/dl (8.5-10.1); Est GFR (African American) 16.1 ml/min; Est GFR (Non-African American) 13.9 ml/min; Potassium 4.8 mmol/L (3.5-5.1)
[2021-02-02 06:55] LABS: Phosphorus 4.8 mg/dl (2.5-4.9)
[2021-02-02] MEDS ORDERED: SODIUM CHLORIDE 0.9% 250 ML IV PRN (06:55)
[2021-02-02] MEDS ORDERED: SODIUM CHLORIDE 0.9% 1000ML 1,000 ML IV PRN (07:00)
[2021-02-02] MEDS ORDERED: EPOETIN ALFA 10,000 UNITS/ML VIAL IV SCH (07:00)
[2021-02-02] MEDS ORDERED: IRON SUCROSE 200 MG in SYRINGE 0 ML IV SCH (07:00)
[2021-02-02] MEDS: NEPHROCAPS PO SCH (08:55)
[2021-02-02] MEDS: METOPROLOL SUCC 50MG EXT REL TAB PO SCH ×2 (08:55→21:26)
[2021-02-02] MEDS: CALCIUM ACETATE 667 MG CAP/TAB PO SCH ×3 (08:55→18:10)
[2021-02-02] MEDS: ASPIRIN 81 MG ECTAB PO SCH (08:56)
[2021-02-02] MEDS: PANTOprazole 40 MG TAB PO SCH (08:57)
[2021-02-02] MEDS: hydrALAZINE 10 MG TAB PO SCH ×3 (08:57→21:27)
[2021-02-02] MEDS: UMECLIDINIUM/VILANTEROL 62.5/25MCG 7 PUFFS/INHALER INH SCH (08:58)
[2021-02-02] MEDS: LACTULOSE SYRUP 20 GM/30 ML UDC PO SCH (08:58)
[2021-02-02] MEDS: FLUTICASONE FUROATE 100MCG 14 PUFFS/INHALER INH SCH (08:59)
[2021-02-02] MEDS: LIDOCAINE 5% 1 PATCH TD SCH (09:18)
--- NOTE | 2021-02-02 09:40 | Nephrology Progress Note ---
Date of Service February 02, 2021 Assessment & Plan (1) Chronic renal insufficiency, stage IV (severe): * Progressive renal dysfunction, needing HD. Discussed goals of care including HD or maximal conservative medical care. Ms. Garay indicated that her goal is to start HD and have her daughter move from [place] to [place]. Her daughter will move in with her and provide ongoing care. She has started a trial of dialysis but understands that she can transition to maximal conservative medical care if vascular access/HD/transportation becomes overwhelming * Patient is clinically euvolemic. Electrolyte balance is acceptable. LE edema is likely related to pulmonary HTN and valvular heart disease * 1st run HD performed yesterday heparin free * Patient has slow bleeding from IJ THC insertion site. Pressure dressing has been applied * Vascular surgery has been notified of slow bleed and need for transfusion. They have been asked to assess catheter for surgicell/stitch/revision * Hold HD today due to bleeding from catheter site and need for blood transfusion (2) Chronic anemia: * 1 u PRBC transfusion provided 01/26, 02/02 * 01/27: iron sat 33%, ferritin 347 * Epogen 50578 units given on 01/27 (3) Benign essential hypertension: * Relative hypotension related to anemia * Hold Metoprolol and Hydralazine for SBP < 100 (4) Hyponatremia: * Limit free water intake to 1.2 L/d * Monitor PRP Admission and Anticipated Discharge Date Admission Date: January 25, 2021 Subjective Ms. Garay was seen and examined in her hospital room this morning. She was dialyzed heparin free yesterday for 2 hours. HD was complicated by slow oozing from dialysis catheter exit site. Compression bandage was applied. Review of Systems Constitutional: + weakness; no fever Eyes: no problem reported Respiratory: no dyspnea Cardiovascular: + edema; no chest pain and no palpitations Gastrointestinal: no abdominal pain and no nausea Physical Exam Constitutional: + frail appearing; not in distress Eyes: PERRL, conjunctivae normal, anicteric sclerae ENMT: external ear and nose normal, oropharynx normal Neck: trachea midline, no thyromegaly IJ THC site with pressure dressing in place. Dressing is saturated w/ blood Respiratory: normal respiratory effort, lungs clear to auscultation Cardiovascular: Rate/Rhythm: regular rate and regular rhythm Gastrointestinal (Abdomen): normal bowel sounds, soft, nontender, no hepatosplenomegaly Results & Data ([facility]) Vital Signs (Past 12 Hours) Vital Signs Temp Pulse Resp BP Pulse Ox 02/02/21 07:10 36.3 C L 64 12 96/61 L 100 Laboratory Tests 02/02/21 02/02/21 05:59 05:59 WBC 6.21 Hgb 6.1 L* D Hct 18.8 L* Plt Count 250 Sodium 130 L Potassium 4.8 Chloride 98 Carbon Dioxide 28 BUN 68 H Creatinine 3.45 H D Glucose 156 H Albumin 1.8 L PG Care Time/CCT Total # of Minutes Spent Total Time Spent with Patient: Total time spent is greater than 50% in coordination of care (as documented) at patient's floor/unit and/or counseling patient: Coding Level of Care Code 65804 Subseq Hosp Care Lvl 3 Diagnoses Chronic renal insufficiency, stage IV (severe) N18.4 Chronic anemia D64.9 Benign essential hypertension I10 Hyponatremia E87.1
--- NOTE | 2021-02-02 10:19 | Communication Note ---
Date of Service: February 02, 2021 Asked to see pt d/t concern for continued bleeding from R IJ TDC site. Dressing removed and large clot noted over exit site. Clot removed, but biodisc not disturbed. No active bleeding noted. New dressing placed over exit site and advised RN to keep HOB at least 30 degrees for today. Please call if further bleeding noted.
[2021-02-02] MEDS: NICOTINE 21 MG/24 HR TDSY TD SCH (10:56)
[2021-02-02] MEDS: INSULIN GLARGINE SOLOSTAR 100 UNITS/ML 3 ML PEN SC SCH ×2 (10:58→21:22)
[2021-02-02] MEDS: INSULIN ASPART 100 UNITS/ML 3 ML PEN SC SCH ×4 (11:00→21:22)
[2021-02-02] MEDS: POLYETHYLENE (MIRALAX) 17 GM PACK PO SCH ×2 (11:03→21:24)
--- NOTE | 2021-02-02 15:30 | Hospitalist Progress Note ---
Date of Service February 02, 2021 Assessment & Plan (1) Acute on chronic renal failure: 60 yo female with PMHx of atrial fibrillation, anemia, CKD, HTN, CVA, IDDM, HFpEF, bipolar disorder, and right BKA admitted for sjlbt-au-sysftul renal failure. Stable vitals. Acute blood loss Anemia in context of bleeding/clotting around dialysis catheter site - Hb dropped from 9.2 (02/01) to 6.1 (02/02). - mildly symptomatic - 02/02 transfused 1u prbc (instead of 2 because of caution against fluid overload), PM Hb 7.8. - vascular surgery removed dialysis catheter dressing and removed large clot; did not note any active bleeding - patient had received 1u prbc on 01/26 and epogen 2000u given 01/27 - CBC in AM [id number] renal failure - Cr elevated from baseline (1.8-2.4) to 4s at admission - IJ THC insertion on 02/01 followed by 1st run HD. 2L dialyzed. next session tentatively on 02/03 - daily BMP Right-sided heart failure, chronic -stable, euvolemic -Goal net negative fluid balance; -cumulative 7.3L in 8.8L out as of 02/02 Hyponatremia, chronic and asymptomatic - 128 at admission. 126 today. - workup not pursued admission but most likely 2/2 renal failure - follow daily BMP IDDM - BSGs elevated to 200s and 300s. continue checking ACHS - 02/01 increased lantus from 10u BID to 12u BID. tightened carb ratio from 1:16g to 1:12g - 02/02 lantus 14u BID. carb ratio 1:6g - Continue ISS, hypoglycemic protocol. BSG ACHS UTI, resolved - UCx with E. coli growth but without symptoms; patient already treated with ceftriaxone (ED) then cefepime (discontinued 01/27) Severe protein-calorie malnutrition - Dietary consult, encouraging increased dietary protein intake Atrial fibrillation - NSR since admission, continue home metoprolol - defer restarting warfarin on 02/01 because of bleeding around dialysis catheter site Bipolar disorder, anxiety - Continue home regimen Nicotine dependence - Continue nicotine patch daily FENGI: dialysis renal, DM2, and fluid restriction <1.2L/day DVT ppx: warfarin held for bleeding around dialysis site Dispo: med/surg Code status: full code (2) Chronic respiratory failure: (3) Chronic anemia: (4) UTI (urinary tract infection): (5) Benign essential hypertension: (6) Acute on chronic right-sided congestive heart failure: (7) Chronic renal insufficiency, stage IV (severe): (8) Hyponatremia: Admission and Anticipated Discharge Date Admission Date: January 25, 2021 Supervising Physician Co-Signing Physician Notes Resident Physician Supervision Note: I independently interviewed and examined the patient and verified the senior history and physical, reviewed labs and image studies and agree with resident Dr. Galicia findings and care plan. Subjective Per night team signout, patient had external clot at the R IJ catheter site and a Hb drop to 6.1 this morning. Patient had fatigue, dizziness, and headache this morning. No new pain complaint this morning. Review of Systems Review of Systems: Constitutional: Denies fever, chills Cardiovascular: Denies chest pain Respiratory: Denies shortness of breath Gastrointestinal: Denies abdominal pain, nausea, vomiting, constipation, diarrhea Genitourinary: Denies urinary symptoms including dysuria Musculoskeletal: Denies muscle aches/pain, joint aches/pain Neurological: Denies numbness, tingling, focal weakness Physical Exam Physical Exam: General: Grossly A&O. NAD. Cooperative. Appears tired. HEENT: Atraumatic, normocephalic. Pulm: CTAB. No crackles. No respiratory distress. Cardiac: RRR, -mrg. Abdominal: Nontender, nondistended, soft. Integumentary: R upper chest medial to shoulder has IJ site, currently bandaged. Image per night team showed clotted blood around site. Results & Data Results & Data ([facility]) Vital Signs (Past 12 Hours) Vital Signs Temp Pulse Pulse Pulse Resp BP BP 02/02/21 13:45 36.8 C 73 75 16 110/70 02/02/21 12:53 36.9 C 74 14 115/78 02/02/21 12:45 36.9 C 72 74 15 117/77 02/02/21 12:43 76 14 123/70 02/02/21 12:11 71 16 110/71 02/02/21 11:47 70 14 112/68 02/02/21 11:30 36.9 C 71 12 116/75 02/02/21 11:15 36.9 C 64 14 102/56 L 02/02/21 10:51 36.3 C L 64 18 107/74 02/02/21 07:10 36.3 C L 64 12 96/61 L Pulse Ox 02/02/21 13:45 99 02/02/21 12:53 99 02/02/21 12:45 98 02/02/21 12:43 99 02/02/21 12:11 99 02/02/21 11:47 100 02/02/21 11:30 99 02/02/21 11:15 99 02/02/21 10:51 02/02/21 07:10 100 Resident Activity Tracking Resident Involvement: Resident Care Provided Care Provided: Adult Hospital Medicine (1) UTI (urinary tract infection) Hematuria presence: without hematuria Urinary tract infection type: site unspecified Qualified Code(s): N39.0 - Urinary tract infection, site not specified (2) Chronic respiratory failure Respiratory failure complication: hypoxia Qualified Code(s): J96.11 - Chronic respiratory failure with hypoxia (3) Acute on chronic renal failure Acute renal failure type: unspecified Chronic kidney disease stage: unspecified stage Qualified Code(s): N17.9 - Acute kidney failure, unspecified; N18.9 - Chronic kidney disease, unspecified
[2021-02-02 15:52] LABS: Basophils # (auto) 0.03 K/uL (0-0.2); Basophils % (auto) 0.4 %; Eosinophils # (auto) 0.23 K/uL (0-0.5); Eosinophils % (auto) 2.8 %; Hematocrit (blood only) 23.2 % (37-47); Hemoglobin 7.8 g/dL (12.0-16.0); Immature Granulocytes # (auto) 0.05 K/uL (0.00-0.02); Immature Granulocytes % (auto) 0.6 %; Lymphocytes # (auto) 0.39 K/uL (1.2-3.4); Lymphocytes % (auto) 4.8 %; Mean Corpuscular Hgb Conc 33.6 g/dL (32-36); Mean Corpuscular Volume 89.2 fL (80-100); Mean Platelet Volume 8.3 fL (7.4-10.4); Monocytes # (auto) 0.63 K/uL (0.11-0.59); Monocytes % (auto) 7.8 %; Neutrophils # (auto) 6.77 K/uL (1.4-6.5); Neutrophils % (auto) 83.6 %; Nucleated RBC # (auto) 0.02 K/uL (0-0); Nucleated RBC % (auto) 0.2 %; Platelet Count 246 K/uL (130-400); RDW Coefficient of Variation 15.9 % (11.5-14.5); RDW Standard Deviation 50.2 fL (36.4-46.3)
[2021-02-02 17:01] LABS: RBC Morphology Unremarkable
[2021-02-02] MEDS: ACETAMINOPHEN 325 MG TAB PO PRN (21:23)
[2021-02-02] MEDS: chlorproMAZINE HCL 25 MG TAB PO SCH (21:28)
[2021-02-02] MEDS: traZODone HCL 50 MG TAB PO SCH (21:33)
[2021-02-03] MEDS: oxyCODONE HCL IR 5 MG TAB (IMMEDIATE RELEASE) PO PRN ×3 (01:30→18:28)
[2021-02-03 07:04] LABS: Hematocrit (blood only) 22.6 % (37-47); Hemoglobin 7.5 g/dL (12.0-16.0); Mean Corpuscular Hemoglobin 29.5 pg (25-34); Mean Corpuscular Hgb Conc 33.2 g/dL (32-36); Mean Platelet Volume 8.2 fL (7.4-10.4); Platelet Count 235 K/uL (130-400); RDW Coefficient of Variation 16.7 % (11.5-14.5); RDW Standard Deviation 52.1 fL (36.4-46.3); Red Blood Count 2.54 M/uL (4.2-5.4); White Blood Count 7.64 K/uL (4.8-10.8)
[2021-02-03 07:16] LABS: INR 1.2 (0.9-1.1); Prothrombin Time 12.4 Seconds (9.0-12.0)
[2021-02-03 07:36] LABS: BUN Creatinine Ratio 19.4 (10-20); Creatinine Clr Calc Pharmacy 19.8 ml/min; Potassium 5.2 mmol/L (3.5-5.1)
[2021-02-03] MEDS ORDERED: SODIUM CHLORIDE 0.9% 250 ML IV PRN (08:30)
[2021-02-03] MEDS ORDERED: SODIUM CHLORIDE 0.9% 1000ML 1,000 ML IV PRN (08:30)
[2021-02-03 08:45] LABS: Polychromasia 1+
[2021-02-03] MEDS ORDERED: EPOETIN ALFA 10,000 UNITS/ML VIAL IV SCH (09:00)
[2021-02-03] MEDS ORDERED: IRON SUCROSE 200 MG in SYRINGE 0 ML IV SCH (09:00)
[2021-02-03] MEDS: INSULIN ASPART 100 UNITS/ML 3 ML PEN SC SCH ×4 (09:26→21:15)
[2021-02-03] MEDS: LACTULOSE SYRUP 20 GM/30 ML UDC PO SCH (09:28)
[2021-02-03] MEDS: CALCIUM ACETATE 667 MG CAP/TAB PO SCH ×3 (09:29→18:24)
[2021-02-03] MEDS: PANTOprazole 40 MG TAB PO SCH (09:29)
[2021-02-03] MEDS: NEPHROCAPS PO SCH (09:29)
[2021-02-03] MEDS: ASPIRIN 81 MG ECTAB PO SCH (09:30)
[2021-02-03] MEDS: hydrALAZINE 10 MG TAB PO SCH ×3 (09:30→20:27)
[2021-02-03] MEDS: NICOTINE 21 MG/24 HR TDSY TD SCH (09:30)
[2021-02-03] MEDS: LIDOCAINE 5% 1 PATCH TD SCH (09:31)
[2021-02-03] MEDS: METOPROLOL SUCC 50MG EXT REL TAB PO SCH ×2 (09:32→20:44)
[2021-02-03] MEDS: POLYETHYLENE (MIRALAX) 17 GM PACK PO SCH ×2 (09:32→20:27)
[2021-02-03] MEDS: FLUTICASONE FUROATE 100MCG 14 PUFFS/INHALER INH SCH (09:33)
[2021-02-03] MEDS: UMECLIDINIUM/VILANTEROL 62.5/25MCG 7 PUFFS/INHALER INH SCH (09:33)
[2021-02-03] MEDS: INSULIN GLARGINE SOLOSTAR 100 UNITS/ML 3 ML PEN SC SCH ×2 (09:42→21:15)
--- NOTE | 2021-02-03 10:01 | Nephrology Progress Note ---
Date of Service February 03, 2021 Assessment & Plan (1) End stage renal disease: * ESRD - discussed goals of care including HD or maximal conservative medical management. Ms. Garay indicated that her goal is to start HD and have her daughter move from [place] to [place]. Her daughter will move in with her and provide ongoing care. She has started a trial of dialysis but understands that she can transition to maximal conservative medical care if vascular access/HD/transportation becomes overwhelming * LE edema is likely related to pulmonary HTN and valvular heart disease * Will provide 2nd HD treatment today heparin free * I was present when IV team took down THC dressing this morning. Patient bleeds from insertion site when sitting up/increase intrathoracic pressure. New dressing was applied and findings discussed w/ surgery by phone this am * Check CBC, PRP in am (2) Chronic anemia: * 1 u PRBC transfusion provided 01/26, 02/02 * Will provide one unit PRBC on HD today * Will provide IV Venofer and Epogen w/ HD today (3) Benign essential hypertension: * BP is acceptable at this time * Hold Metoprolol and Hydralazine for SBP < 100 Admission and Anticipated Discharge Date Admission Date: January 25, 2021 Subjective Ms. Garay was seen and examined in her hospital room this morning. Dialysis was held yesterday due to bleeding from THC site. Patient c/o weakness and LE swelling. She voices no other concerns. Review of Systems Constitutional: + weakness; no fever Eyes: no problem reported Respiratory: no dyspnea Cardiovascular: + edema; no chest pain and no palpitations Gastrointestinal: no abdominal pain and no nausea Physical Exam Constitutional: + frail appearing; not in distress Eyes: PERRL, conjunctivae normal, anicteric sclerae ENMT: external ear and nose normal, oropharynx normal Neck: trachea midline, no thyromegaly IJ THC with continued bleeding from insertion site Respiratory: normal respiratory effort, lungs clear to auscultation Cardiovascular: Rate/Rhythm: regular rate and regular rhythm Gastrointestinal (Abdomen): normal bowel sounds, soft, nontender, no hepatosplenomegaly Results & Data ([facility]) Vital Signs (Past 12 Hours) Vital Signs Temp Pulse Resp BP BP Pulse Ox 02/03/21 07:20 36.8 C 86 16 121/81 96 02/03/21 03:49 86 16 144/83 H 98 02/02/21 22:07 37.1 C 80 18 118/73 96 Laboratory Tests 02/03/21 02/03/21 02/03/21 06:49 06:49 06:49 WBC 7.64 Hgb 7.5 L Hct 22.6 L Plt Count 235 INR 1.2 H Sodium 130 L Potassium 5.2 H Chloride 99 Carbon Dioxide 26 BUN 71 H Creatinine 3.65 H Glucose 158 H PG Care Time/CCT Total # of Minutes Spent Total Time Spent with Patient: Total time spent is greater than 50% in coordination of care (as documented) at patient's floor/unit and/or counseling patient: Coding Level of Care Code 96365 Subseq Hosp Care Lvl 3 Diagnoses End stage renal disease N18.6 Chronic anemia D64.9 Benign essential hypertension I10
--- NOTE | 2021-02-03 13:08 | Medical Student Progress Note ---
Date of Service February 03, 2021 Assessment & Plan (1) Acute on chronic renal failure: 60 yo female with PMHx of atrial fibrillation, anemia, CKD, HTN, CVA, IDDM, HFpEF, bipolar disorder, and right BKA admitted for egbdg-lc-hsdgpjf renal failure. Stable vitals. Acute blood loss Anemia in context of bleeding/clotting around dialysis catheter site - Hb dropped from 9.2 (02/01) to 6.1 (02/02). - 02/02 transfused 1u PRBCs (instead of 2 because of caution against fluid ove rload), PM Hb 7.8 yesterday, 7.5 today. - vascular surgery removed dialysis catheter dressing and removed large clot; did not note any active bleeding - patient had received 1u prbc on 01/26 and epogen 2000u given 01/27 - s/p placement of 2 sutures by vascular securing catheter site on 02/03. - Receiving IV Venofer and Epogen and 1u PRBCs today - Check CBC in AM Wceme-wb-tguzyih renal failure - Cr elevated from baseline (1.8-2.4) to 4s at admission - IJ THC insertion on 02/01 followed by 1st run HD. 2L dialyzed. second sesson on 02/03 - daily BMP Right-sided heart failure, chronic -stable, euvolemic -Goal net negative fluid balance; -cumulative 7.7L in 9.5L out as of 02/03 Hyponatremia, chronic and asymptomatic - 128 at admission. 130 today. - workup not pursued admission but most likely 2/2 renal failure - follow daily BMP IDDM - BSGs elevated to 200s and 300s. - 02/01 increased lantus from 10u BID to 12u BID. tightened carb ratio from 1:16g to 1:12g - 02/02 lantus 14u BID. carb ratio 1:6g. 02/03 BPs upper 100s - low 200s - Continue ISS, hypoglycemic protocol. BSG ACHS UTI, resolved - UCx with E. coli growth but without symptoms; patient already treated with ceftriaxone (ED) then cefepime (discontinued 01/27) Severe protein-calorie malnutrition - Dietary consult, encouraging increased dietary protein intake Atrial fibrillation - NSR since admission, continue home metoprolol - defer restarting warfarin on 02/01 because of bleeding around dialysis catheter site Bipolar disorder, anxiety - Continue home regimen Nicotine dependence - Continue nicotine patch daily FENGI: dialysis renal, DM2, and fluid restriction <1.2L/day DVT ppx: warfarin held for bleeding around dialysis site Dispo: med/surg Code status: full code Acute renal failure type: unspecified Chronic kidney disease stage: unspecified stage Qualified Code(s): N17.9 - Acute kidney failure, unspecified; N18.9 - Chronic kidney disease, unspecified (2) Chronic respiratory failure: Respiratory failure complication: hypoxia Qualified Code(s): J96.11 - Chronic respiratory failure with hypoxia (3) Dialysis patient: (4) Hypertension associated with type 1 diabetes mellitus: (5) Chronic renal insufficiency, stage IV (severe): (6) Chronic anemia: Admission and Anticipated Discharge Date Admission Date: January 25, 2021 Subjective Patient denies any pain or shortness of breath. Less fatigue compared to yesterday. She has no other complaints. Review of Systems Review of Systems: Constitutional: Denies fever, chills Cardiovascular: Denies chest pain Respiratory: Denies shortness of breath Gastrointestinal: Denies abdominal pain, nausea, vomiting, Musculoskeletal: Denies muscle aches/pain, joint aches/pain Physical Exam Physical Exam: GENERAL: nad, cooperative HEENT: atraumatic, normocephalic, external nose and pinna are normal, nasal cannula in place CHEST: no crackles, no wheezes, no rhonchi or rales, normal respiratory effort CARDIOVASCULAR: heart regular rate and rhythm, no murmurs, gallops or rubs, 2+ pitting edema ABD: nontender to palpation, nondistended SKIN: bandaged controlled bleeding from R IJ site, L great toe amputated and bandaged without erythema. R knee stump Results & Data ([facility]) Vital Signs (Past 12 Hours) Vital Signs Temp Pulse Resp BP BP Pulse Ox 02/03/21 07:20 36.8 C 86 16 121/81 96 02/03/21 03:49 86 16 144/83 H 98 Addendum (Blank) Addendum February 03, 2021 18:47 I interviewed and examined the patient alongside Basia Echavarria (medical student) and verified/reviewed labs and imaging studies and agree with the findings and plan above. - Farzad Galicia (resident) Resident Activity Tracking Resident Involvement: Resident Care Provided Care Provided: [facility] Medicine
[2021-02-03] MEDS ORDERED: LIDOCAINE 1% LOCAL 20 ML VIAL INFIL ONE (16:50)
--- NOTE | 2021-02-03 17:07 | Communication Note ---
Date of Service: February 03, 2021 Site with small amount of arterial looking blood. The site was prepped and marlena was applied followed by 2 nylon sutures to the exit site. No further bleeding was seen Pressure dressing was applied.
[2021-02-03] MEDS: chlorproMAZINE HCL 25 MG TAB PO SCH (20:27)
[2021-02-03] MEDS: ACETAMINOPHEN 325 MG TAB PO PRN (20:35)
[2021-02-03] MEDS: traZODone HCL 50 MG TAB PO SCH (20:36)
[2021-02-04] MEDS: oxyCODONE HCL IR 5 MG TAB (IMMEDIATE RELEASE) PO PRN ×3 (02:01→21:13)
[2021-02-04 07:43] LABS: Hematocrit (blood only) 26.3 % (37-47); Hemoglobin 8.6 g/dL (12.0-16.0); Mean Corpuscular Hemoglobin 29.8 pg (25-34); Mean Corpuscular Hgb Conc 32.7 g/dL (32-36); Mean Platelet Volume 8.6 fL (7.4-10.4); Nucleated RBC # (auto) 0.02 K/uL (0-0); Nucleated RBC % (auto) 0.4 %; Platelet Count 210 K/uL (130-400); RDW Coefficient of Variation 16.8 % (11.5-14.5); RDW Standard Deviation 53.2 fL (36.4-46.3); Red Blood Count 2.89 M/uL (4.2-5.4); White Blood Count 6.36 K/uL (4.8-10.8)
[2021-02-04 08:19] LABS: BUN Creatinine Ratio 15.1 (10-20); Creatinine Clr Calc Pharmacy 27.5 ml/min; Est GFR (African American) 21.7 ml/min; Est GFR (Non-African American) 18.8 ml/min; Potassium 4.3 mmol/L (3.5-5.1)
[2021-02-04] MEDS: FLUTICASONE FUROATE 100MCG 14 PUFFS/INHALER INH SCH (08:54)
[2021-02-04] MEDS: hydrALAZINE 10 MG TAB PO SCH ×3 (08:55→21:17)
[2021-02-04] MEDS: UMECLIDINIUM/VILANTEROL 62.5/25MCG 7 PUFFS/INHALER INH SCH (08:55)
[2021-02-04] MEDS: METOPROLOL SUCC 50MG EXT REL TAB PO SCH ×2 (08:55→21:17)
[2021-02-04] MEDS: CALCIUM ACETATE 667 MG CAP/TAB PO SCH ×3 (08:56→18:34)
[2021-02-04] MEDS: NICOTINE 21 MG/24 HR TDSY TD SCH (08:56)
[2021-02-04] MEDS: NEPHROCAPS PO SCH (08:57)
[2021-02-04] MEDS: PANTOprazole 40 MG TAB PO SCH (08:58)
[2021-02-04] MEDS: INSULIN GLARGINE SOLOSTAR 100 UNITS/ML 3 ML PEN SC SCH ×2 (08:58→21:11)
[2021-02-04] MEDS: LACTULOSE SYRUP 20 GM/30 ML UDC PO SCH (08:58)
[2021-02-04] MEDS: LIDOCAINE 5% 1 PATCH TD SCH (08:58)
[2021-02-04] MEDS: ASPIRIN 81 MG ECTAB PO SCH (08:58)
[2021-02-04] MEDS: INSULIN ASPART 100 UNITS/ML 3 ML PEN SC SCH ×4 (09:04→21:12)
[2021-02-04] MEDS: POLYETHYLENE (MIRALAX) 17 GM PACK PO SCH ×2 (09:08→21:13)
--- NOTE | 2021-02-04 10:01 | Surgery Progress Note ---
Date of Service February 04, 2021 Assessment & Plan (1) Central venous catheter in place: No further bleeding seen. Will have dressing removed tomorrow. Admission and Anticipated Discharge Date Admission Date: January 25, 2021 Subjective Awake and alert. Denies any bleeding problems during the night Physical Exam Constitutional: WD/WN, vitals as above Pressure dressing intact. No bleeding seen Results & Data ([facility]) Vital Signs (Past 12 Hours) Vital Signs Temp Pulse Resp BP Pulse Ox 02/04/21 08:00 36.6 C 71 18 116/73 02/03/21 22:51 36.4 C L 77 18 120/78 99
[2021-02-04] MEDS ORDERED: guaiFENesin 600 MG TABCR PO ONE (10:54)
--- NOTE | 2021-02-04 11:23 | Nephrology Progress Note ---
Date of Service February 04, 2021 Assessment & Plan (1) End stage renal disease: * ESRD - discussed goals of care including HD or maximal conservative medical management. Ms. Garay indicated that her goal is to start HD and have her daughter move from [place] to [place]. Her daughter will move in with her and provide ongoing care. She has started a trial of dialysis but understands that she can transition to maximal conservative medical care if vascular access/HD/transportation becomes overwhelming * LE edema is likely related to pulmonary HTN and valvular heart disease * Will provide heparin free HD tomorrow * Check CBC, PRP in am (2) Chronic anemia: * 1 u PRBC transfusion provided 01/26, 02/02, 02/03 * Will provide IV Venofer and Epogen w/ HD tomorrow (3) Benign essential hypertension: * BP is acceptable at this time * Hold Metoprolol and Hydralazine for SBP < 100 Admission and Anticipated Discharge Date Admission Date: January 25, 2021 Subjective Ms. Garay was seen & examined in her hospital room this morning. She required a suture at the exit site of her IJ THC and pressure dressing yesterday. There has been no further bleeding. Ms. Garay reports that she tolerated HD yesterday without complication Review of Systems Constitutional: + weakness; no fever Eyes: no problem reported Respiratory: no dyspnea Cardiovascular: + edema; no chest pain and no palpitations Gastrointestinal: no abdominal pain and no nausea Physical Exam Constitutional: + frail appearing; not in distress Eyes: PERRL, conjunctivae normal, anicteric sclerae ENMT: external ear and nose normal, oropharynx normal Neck: trachea midline, no thyromegaly IJ THC w/ clean pressure dressing in place Respiratory: normal respiratory effort, lungs clear to auscultation Cardiovascular: Rate/Rhythm: regular rate and regular rhythm Extremities: + edema (1+ pitting edema LLE) Gastrointestinal (Abdomen): normal bowel sounds, soft, nontender, no hepatosplenomegaly Results & Data ([facility]) Vital Signs (Past 12 Hours) Vital Signs Temp Pulse Resp BP 02/04/21 08:00 36.6 C 71 18 116/73 Laboratory Tests 02/01/21 02/02/21 02/04/21 07:25 05:59 07:16 WBC 6.36 Hgb 9.2 L 6.1 L* D 8.6 L Hct 26.3 L Plt Count 210 Sodium Potassium Chloride Carbon Dioxide BUN Creatinine Glucose 02/04/21 07:16 WBC Hgb Hct Plt Count Sodium 133 L Potassium 4.3 D Chloride 101 Carbon Dioxide 26 BUN 41 H Creatinine 2.69 H D Glucose 83 PG Care Time/CCT Total # of Minutes Spent Total Time Spent with Patient: Total time spent is greater than 50% in coordination of care (as documented) at patient's floor/unit and/or counseling patient: Coding Level of Care Code 09397 Subseq Hosp Care Lvl 3 Diagnoses End stage renal disease N18.6 Chronic anemia D64.9 Benign essential hypertension I10
--- NOTE | 2021-02-04 12:37 | Medical Student Progress Note ---
Date of Service February 04, 2021 Assessment & Plan (1) Acute on chronic renal failure: 60 y/ female with PMHx of atrial fibrillation, anemia, CKD, HTN, CVA, IDDM, HFpEF, bipolar disorder, and right BKA admitted for xsbcu-vf-kutzkeh renal failure. Stable vitals. Acute blood loss Anemia in context of bleeding/clotting around dialysis catheter site - Hb dropped from 9.2 (02/01) to 6.1 (02/02). - Received 1u PRBCs 01/26, and 1u 02/02 and 02/03 following blood loss from catheter site. Hbg 8.6 today - Vascular surgery placed suture at catheter site on 02/03. 02/04 no further bleeding - Epogen given 01/27. Epogen and venofer given 02/03 - Will discuss w/ vascular regarding appropriate timing to restart home warfarin - Check CBC in AM Nmsei-vf-uohzznb renal failure - Cr elevated from baseline (1.8-2.4) to 4s at admission - IJ THC insertion on 02/01 followed by 1st run HD, second HD 02/03. Next planned for 02/05 - daily BMP Right-sided heart failure, chronic -stable, euvolemic -Goal net negative fluid balance; -cumulative 8.2L in 10L out as of 02/04 Hyponatremia, chronic and asymptomatic - 128 at admission. 133 today. - workup not pursued admission but most likely 2/2 renal failure - follow daily BMP IDDM - BSGs elevated to 200s and 300s. continue checking ACHS - 02/01 increased lantus from 10u BID to 12u BID. tightened carb ratio from 1:16g to 1:12g - 02/02 lantus 14u BID. carb ratio 1:6g - Continue ISS, hypoglycemic protocol. BSG ACHS UTI, resolved - UCx with E. coli growth but without symptoms; patient already treated with ceftriaxone (ED) then cefepime (discontinued 01/27) Severe protein-calorie malnutrition - Dietary consult, encouraging increased dietary protein intake Atrial fibrillation - NSR since admission, continue home metoprolol - defer restarting warfarin on 02/01 because of bleeding around dialysis catheter site Bipolar disorder, anxiety - Continue home regimen Nicotine dependence - Continue nicotine patch daily FENGI: dialysis renal, DM2, and fluid restriction <1.2L/day DVT ppx: warfarin held for bleeding around dialysis site Dispo: med/surg Code status: full code Acute renal failure type: unspecified Chronic kidney disease stage: unspecified stage Qualified Code(s): N17.9 - Acute kidney failure, unspecified; N18.9 - Chronic kidney disease, unspecified Admission and Anticipated Discharge Date Admission Date: January 25, 2021 Subjective Comfortable this morning. Endorses mild pain at IJ catheter, but denies any other pain. Denies shortness of breath. No other complaints. Received HD yesterday afternoon. Review of Systems Review of Systems: Constitutional: Endorses headache Cardiovascular: Denies chest pain Respiratory: Denies shortness of breath Gastrointestinal: Denies abdominal pain, nausea, vomiting, Musculoskeletal: Denies muscle aches/pain, joint aches/pain Physical Exam Physical Exam: GENERAL: nad, cooperative HEENT: atraumatic, normocephalic, external nose and pinna are normal, nasal can nula in place CHEST: no crackles, no wheezes, no rhonchi or rales, normal respiratory effort CARDIOVASCULAR: heart regular rate and rhythm, no murmurs, gallops or rubs, 2+ pitting edema ABD: nontender to palpation, nondistended SKIN: bandaged IJ site, L great toe amputated and bandaged without erythema Results & Data ([facility]) Vital Signs (Past 12 Hours) Vital Signs Temp Pulse Resp BP 02/04/21 08:00 36.6 C 71 18 116/73 Resident Activity Tracking Resident Involvement: Resident Care Provided Care Provided: [facility] Addendum ([facility]) Addendum February 04, 2021 20:39 I interviewed and examined the patient alongside Basia Rothman (medical student) and verified/reviewed labs and imaging studies and agree with the findings and plan above. - Farzad Galicia (resident) Attending Physicain Medical Student Supervision Note: I independently interviewed and examined the patient and verified the senior history and physical, reviewed labs and image studies, discussed the case with the medical student Basia Rothman and the Resident physician Dr. Galicia and agree with the findings and care plan.
[2021-02-04] MEDS: traZODone HCL 50 MG TAB PO SCH (21:13)
[2021-02-04] MEDS: chlorproMAZINE HCL 25 MG TAB PO SCH (21:15)
[2021-02-04] MEDS: guaiFENesin 600 MG TABCR PO SCH (21:15)
[2021-02-05] MEDS ORDERED: IRON SUCROSE 200 MG in SYRINGE 0 ML IV ONE (07:00)
[2021-02-05] MEDS ORDERED: SODIUM CHLORIDE 0.9% 1000ML 1,000 ML IV PRN (07:00)
[2021-02-05] MEDS ORDERED: EPOETIN ALFA 10,000 UNITS/ML VIAL IV ONE (07:00)
[2021-02-05 07:20] LABS: Hematocrit (blood only) 27.3 % (37-47); Hemoglobin 8.8 g/dL (12.0-16.0); Mean Corpuscular Hemoglobin 30.2 pg (25-34); Mean Corpuscular Hgb Conc 32.2 g/dL (32-36); Mean Corpuscular Volume 93.8 fL (80-100); Mean Platelet Volume 8.7 fL (7.4-10.4); Platelet Count 249 K/uL (130-400); RDW Standard Deviation 56.9 fL (36.4-46.3); Red Blood Count 2.91 M/uL (4.2-5.4); White Blood Count 7.65 K/uL (4.8-10.8)
[2021-02-05 07:32] LABS: INR 1.1 (0.9-1.1); Prothrombin Time 11.1 Seconds (9.0-12.0)
[2021-02-05 08:04] LABS: BUN Creatinine Ratio 16.1 (10-20); Calcium 8.1 mg/dl (8.5-10.1); Creatinine Clr Calc Pharmacy 25.8 ml/min; Est GFR (African American) 20.3 ml/min; Est GFR (Non-African American) 17.5 ml/min
[2021-02-05] MEDS: oxyCODONE HCL IR 5 MG TAB (IMMEDIATE RELEASE) PO PRN ×3 (08:57→18:41)
[2021-02-05] MEDS: INSULIN ASPART 100 UNITS/ML 3 ML PEN SC SCH ×4 (09:00→21:01)
--- NOTE | 2021-02-05 10:55 | Hospitalist Progress Note ---
Date of Service February 05, 2021 Assessment & Plan (1) Acute on chronic renal failure: 60 y/ female with PMHx of atrial fibrillation, anemia, chronic kidney disease, HTN, CVA, type 2 diabetes, heart failure, bipolar disorder, and right BKA admitted for keyha-vw-idfhfbg renal failure. Acute blood loss anemia: - In the context of bleeding/clotting around dialysis catheter site - Hb initially dropped from 9.2 (02/01) to 6.1 (02/02); has remained stable following transfusions - Hgb 8.8 today; continue to monitor daily - Vascular surgery placed suture at catheter site on 02/03 - Epogen given 01/27. Epogen and venofer given 02/03 Xitma-tr-cokepzf renal failure: - Cr 4.21 on admission (baseline 1.8-2.4 with some recent measurements in the 4s) - IJ THC insertion on 02/01 followed by 1st run HD without complication - Repeat dialysis today - Awaiting outpatient dialysis appointment arrangement before discharge to [facility] -Per case management documentation patient will need COVID testing prior to discharge Right-sided heart failure; - Chronic appearing, stable at this time - Goal to maintain net negative fluid balance Chronic hyponatremia: - Asymptomatic throughout this admission, likely secondary to renal failure - 128 at admission - stable Type 2 diabetes: - BSGs elevated to 200s and 300s - Since 02/01 have elevated Lantus from 10 units BID to 14 units BID with relative improvement in glucose control - Continue sliding scale insulin and Lantus BID - BSGs ACHS UTI/Asymptomatic bacteriuria: - UCx with E. coli growth but without symptoms - patient received ceftriaxone followed by cefepime Atrial fibrillation: - NSR since admission, continue home metoprolol - Resume warfarin as per recommendation from vascular surgery. - check pt/inr Bipolar disorder, anxiety: - Continue home regimen Diet: Dialysis/renal, carb consistent, with fluid restriction DVT ppx: warfarin resumed. SCD until INR therapeutic Code status: full code (2) Anemia: (3) End stage renal disease: (4) Dialysis patient: (5) Acute on chronic right-sided congestive heart failure: (6) Hyponatremia: (7) Diabetic nephropathy: Admission and Anticipated Discharge Date Admission Date: January 25, 2021 Supervising Physician Co-Signing Physician Notes Resident Physician Supervision Note: I independently interviewed and examined the patient and verified the senior history and physical, reviewed labs and image studies and agree with resident Dr. Santiago findings and care plan. Subjective Patient feels overall well this morning, with no acute concerns or complaints. Is scheduled to go to dialysis later today. Currently awaiting outpatient dialysis appointments/chair times before transitioning back to [facility]. Review of Systems Review of Systems: All systems reviewed & are unremarkable except as noted in Subjective Physical Exam Constitutional: WD/WN, vitals as above Eyes: PERRL, conjunctivae normal, anicteric sclerae Respiratory: normal respiratory effort, + prolonged expiratory phase and + audible wheezes; no respiratory distress Auscultation: no crackles, no rales and no rhonchi Cardiovascular: Rate/Rhythm: regular rate and regular rhythm Heart Sounds: no gallop, no murmur and no cardiac rub Vessels: normal peripheral pulses; no JVD Extremities: no edema Gastrointestinal (Abdomen): Inspection/Auscultation: normal bowel sounds; abdomen not distended Percussion/Palpation: abdomen soft; abdomen nontender and no guarding Musculoskeletal: no cyanosis or clubbing, extremities motor strength 5/5 Neurologic: PERRL, EOMI, accommodation nl, no face palsy, no dysarthria CN's II-XI intact bilaterally and moves all extremities Psychiatric: Orientation: alert and oriented x 3 Results & Data Results & Data ([facility]) Vital Signs (Past 12 Hours) Vital Signs Pulse Resp BP Pulse Ox 02/05/21 08:03 80 18 127/83 99 Laboratory Results 02/05/21 02/05/21 02/05/21 Range/Units 08:05 06:39 06:39 WBC (4.8-10.8) K/uL RBC (4.2-5.4) M/uL Hgb (12.0-16.0) g/dL Hct (37-47) % MCV (80-100) fL MCH (25-34) pg MCHC (32-36) g/dL RDW Std Deviation (36.4-46.3) fL RDW Coeff of Esa (11.5-14.5) % Plt Count (130-400) K/uL MPV (7.4-10.4) fL PT 11.1 (9.0-12.0) Seconds INR 1.1 (0.9-1.1) Sodium 132 L (136-145) mmol/L Potassium 5.0 D (3.5-5.1) mmol/L Chloride 101 (98-107) mmol/L Carbon Dioxide 26 (21-32) mmol/L Anion Gap 5.0 (3-11) BUN 46 H (7-18) mg/dl Creatinine 2.85 H (0.6-1.2) mg/dl Est Cr Clr Drug Dosing 25.8 ml/min Est GFR ( Amer) 20.3 ml/min Est GFR (Non-Af Amer) 17.5 ml/min BUN/Creatinine Ratio 16.1 (10-20) Glucose 132 H (70-99) mg/dl POC Glucose 149 H (70-99) mg/dl Calcium 8.1 L (8.5-10.1) mg/dl 02/05/21 02/04/21 02/04/21 Range/Units 06:39 21:01 16:57 WBC 7.65 (4.8-10.8) K/uL RBC 2.91 L (4.2-5.4) M/uL Hgb 8.8 L (12.0-16.0) g/dL Hct 27.3 L (37-47) % MCV 93.8 (80-100) fL MCH 30.2 (25-34) pg MCHC 32.2 (32-36) g/dL RDW Std Deviation 56.9 H (36.4-46.3) fL RDW Coeff of Esa 17.0 H (11.5-14.5) % Plt Count 249 (130-400) K/uL MPV 8.7 (7.4-10.4) fL PT (9.0-12.0) Seconds INR (0.9-1.1) Sodium (136-145) mmol/L Potassium (3.5-5.1) mmol/L Chloride (98-107) mmol/L Carbon Dioxide (21-32) mmol/L Anion Gap (3-11) BUN (7-18) mg/dl Creatinine (0.6-1.2) mg/dl Est Cr Clr Drug Dosing ml/min Est GFR ( Amer) ml/min Est GFR (Non-Af Amer) ml/min BUN/Creatinine Ratio (10-20) Glucose (70-99) mg/dl POC Glucose 215 H 247 H (70-99) mg/dl Calcium (8.5-10.1) mg/dl 02/04/21 Range/Units 12:25 WBC (4.8-10.8) K/uL RBC (4.2-5.4) M/uL Hgb (12.0-16.0) g/dL Hct (37-47) % MCV (80-100) fL MCH (25-34) pg MCHC (32-36) g/dL RDW Std Deviation (36.4-46.3) fL RDW Coeff of Esa (11.5-14.5) % Plt Count (130-400) K/uL MPV (7.4-10.4) fL PT (9.0-12.0) Seconds INR (0.9-1.1) Sodium (136-145) mmol/L Potassium (3.5-5.1) mmol/L Chloride (98-107) mmol/L Carbon Dioxide (21-32) mmol/L Anion Gap (3-11) BUN (7-18) mg/dl Creatinine (0.6-1.2) mg/dl Est Cr Clr Drug Dosing ml/min Est GFR ( Amer) ml/min Est GFR (Non-Af Amer) ml/min BUN/Creatinine Ratio (10-20) Glucose (70-99) mg/dl POC Glucose 178 H (70-99) mg/dl Calcium (8.5-10.1) mg/dl Medications Administered Current Inpatient Medications Acetaminophen (Acetaminophen 325 Mg Tab) 650 mg PO Q4H PRN PRN Reason: Pain or Fever Stop: 02/24/21 20:19 Last Admin: 02/03/21 20:35 Dose: 650 mg Documented by: Aspirin (Aspirin 81 Mg Ectab) 81 mg PO QAM [facility] Stop: 02/25/21 08:59 Last Admin: 02/04/21 08:58 Dose: 81 mg Documented by: Bisacodyl (Bisacodyl 10 Mg Supp) 10 mg CA UD PRN PRN Reason: Constipation Stop: 02/24/21 20:19 Calcium Acetate (Calcium Acetate 667 Mg Cap/Tab) 667 mg PO TIDM [facility] Stop: 03/02/21 11:59 Last Admin: 02/04/21 18:34 Dose: 667 mg Documented by: Chlorpromazine HCl (Chlorpromazine Hcl 25 Mg Tab) 150 mg PO HS [facility] Stop: 02/24/21 20:59 Last Admin: 02/04/21 21:15 Dose: 150 mg Documented by: Dextrose (Dextrose 50% 50 Ml Syringe) 25 - 50 ml IV UD PRN; Protocol PRN Reason: Hypoglycemia Protocol Stop: 02/24/21 20:19 Fluticasone Furoate (Fluticasone Furoate 100mcg 14 Puffs/Inhaler) 1 puffs INH DAILY [facility]IP Stop: 02/25/21 08:59 Last Admin: 02/05/21 11:44 Dose: 1 puffs Documented by: Glucagon (Glucagon For Inj 1 Mg Vial) 1 mg SQ UD PRN; Protocol PRN Reason: Hypoglycemia Protocol Stop: 02/24/21 20:19 Glucose (Glucose 10 Tabs/Tube) 4 - 8 tabs PO UD PRN; Protocol PRN Reason: Hypoglycemia Protocol Stop: 02/24/21 20:19 Glucose (Glucose 40% Gel 15 Gm Tube) 15 - 30 gm PO UD PRN; Protocol PRN Reason: Hypoglycemia Protocol Stop: 02/24/21 20:19 Guaifenesin (Guaifenesin 600 Mg Tabcr) 600 mg PO Q12 [facility]IP Stop: 03/06/21 20:59 Last Admin: 02/04/21 21:15 Dose: 600 mg Documented by: Hydralazine HCl (Hydralazine 10 Mg Tab) 10 mg PO TID [facility]IP Stop: 02/24/21 20:59 Last Admin: 02/04/21 21:17 Dose: 10 mg Documented by: Sodium Chloride (Nss 1000ml) 1,000 mls @ 0 mls/hr IV .Q0M PRN PRN Reason: For Hemodialysis Use ONLY Stop: 02/05/21 12:59 Insulin Aspart (Insulin Aspart 100 Units/Ml 3 Ml Pen) 0 units SC ACHS [facility] Stop: 03/02/21 16:29 Last Admin: 02/05/21 09:00 Dose: 9 units Documented by: Insulin Glargine (Insulin Glargine Solostar 100 Units/Ml 3 Ml Pen) 12 units SC BID [facility]IP Stop: 03/03/21 20:59 Last Admin: 02/04/21 21:11 Dose: 12 units Documented by: Lactulose (Lactulose Syrup 20 Gm/30 Ml Udc) 20 gm PO DAILY SANDIP Stop: 02/25/21 08:59 Last Admin: 02/04/21 08:58 Dose: 20 gm Documented by: Lidocaine (Lidocaine 5% 1 Patch) 1 patch TD DAILY [facility]IP Stop: 02/25/21 08:59 Last Admin: 02/05/21 11:44 Dose: 1 patch Documented by: Metoprolol Succinate (Metoprolol Succ 50mg Ext Rel Tab) 50 mg PO BID SANDIP Stop: 02/24/21 20:59 Last Admin: 02/04/21 21:17 Dose: 50 mg Documented by: Miscellaneous (Remove Lidoderm Patch) 1 ea N/A DAILY@2100 [facility] Stop: 02/24/21 20:59 Last Admin: 02/04/21 21:18 Dose: 1 ea Documented by: Miscellaneous (Carbohydrates For Hypoglycemia ) 15 - 30 gm PO UD PRN PRN Reason: Hypoglycemia Protocol Stop: 02/24/21 20:19 Miscellaneous (Remove Nicoderm Patch) 1 ea N/A DAILY@0859 [facility] Stop: 02/25/21 08:58 Last Admin: 02/05/21 11:40 Dose: 1 ea Documented by: Nicotine (Nicotine 21 Mg/24 Hr Tdsy) 21 mg TD QAM [facility] Stop: 02/25/21 08:59 Last Admin: 02/05/21 11:44 Dose: 21 mg Documented by: Oxycodone HCl (Oxycodone Hcl Ir 5 Mg Tab (Immediate Release)) 5 mg PO Q6H PRN PRN Reason: Pain Stop: 02/08/21 20:19 Last Admin: 02/05/21 08:57 Dose: 5 mg Documented by: Pantoprazole Sodium (Pantoprazole 40 Mg Tab) 40 mg PO DAILY SANDIP Stop: 02/25/21 08:59 Last Admin: 02/04/21 08:58 Dose: 40 mg Documented by: Polyethylene Glycol (Polyethylene (Miralax) 17 Gm Pack) 17 gm PO BID SANDIP Stop: 02/24/21 20:59 Last Admin: 02/05/21 11:43 Dose: Not Given Documented by: Trazodone HCl (Trazodone Hcl 50 Mg Tab) 50 mg PO HS [facility]IP Stop: 02/24/21 20:59 Last Admin: 02/04/21 21:13 Dose: 50 mg Documented by: Umeclidinium/Vilanterol (Umeclidinium/Vilanterol 62.5/25mcg 7 Puffs/Inhaler) 1 puffs INH DAILY [facility]IP Stop: 02/25/21 08:59 Last Admin: 02/05/21 11:43 Dose: 1 puffs Documented by: Vitamin B Complex/Folic Acid (Nephrocaps) 1 cap PO QAM [facility] Stop: 03/03/21 08:59 Last Admin: 02/04/21 08:57 Dose: 1 cap Documented by: Ziprasidone (Ziprasidone Hcl 20 Mg Cap) 20 mg PO BID SANDIP Stop: 02/24/21 20:59 Last Admin: 02/04/21 21:14 Dose: 20 mg Documented by: Resident Activity Tracking Resident Involvement: Resident Care Provided Care Provided: Adult Hospital Medicine (1) Anemia Anemia type: unspecified type Qualified Code(s): D64.9 - Anemia, unspecified (2) Acute on chronic renal failure Acute renal failure type: unspecified Chronic kidney disease stage: unspecified stage Qualified Code(s): N17.9 - Acute kidney failure, unspecified; N18.9 - Chronic kidney disease, unspecified (3) Diabetic nephropathy Diabetes mellitus type: type 2 Qualified Code(s): E11.21 - Type 2 diabetes mellitus with diabetic nephropathy
[2021-02-05] MEDS: POLYETHYLENE (MIRALAX) 17 GM PACK PO SCH ×2 (11:43→20:56)
[2021-02-05] MEDS: UMECLIDINIUM/VILANTEROL 62.5/25MCG 7 PUFFS/INHALER INH SCH (11:43)
[2021-02-05] MEDS: FLUTICASONE FUROATE 100MCG 14 PUFFS/INHALER INH SCH (11:44)
[2021-02-05] MEDS: NICOTINE 21 MG/24 HR TDSY TD SCH (11:44)
[2021-02-05] MEDS: LIDOCAINE 5% 1 PATCH TD SCH (11:44)
[2021-02-05] MEDS: INSULIN GLARGINE SOLOSTAR 100 UNITS/ML 3 ML PEN SC SCH ×2 (11:46→21:01)
[2021-02-05] MEDS: ACETAMINOPHEN 325 MG TAB PO PRN (13:14)
--- NOTE | 2021-02-05 13:16 | Nephrology Progress Note ---
Date of Service February 05, 2021 Assessment & Plan (1) End stage renal disease: End-stage renal disease, started on hemodialysis during this admission for rapid worsening of renal function and difficult to control volume overload And electrolyte abnormality. ESRD most likely secondary to diabetic nephropathy however never had a kidney biopsy and renal function rapidly worsened over last 6 months. Had tunneled dialysis catheter and started on dialysis of on 02/01/2021. Had significant bleeding from catheter area requiring 3 units of blood transfusion, bleeding stopped after skin stitch around the catheter and pressure dressing, hemoglobin stabilized. Overall clinically stable, blood pressure and volume status acceptable. -- Due for dialysis today, UF as tolerated -- Epogen 31469 units during dialysis today -- continue on Nephrocaps and phosphate binder -- left arm nephrology precaution for dialysis access in future -- dose medications for GFR less than 10 will follow (2) UTI (urinary tract infection): (3) Benign essential hypertension: (4) Anemia: Admission and Anticipated Discharge Date Admission Date: January 25, 2021 Subjective Zahida was awake and alert this morning, denied any shortness of breath, chest pain, fever or chills. No further bleeding from tunneled dialysis catheter site, has a pressure dressing on. Hemoglobin stable after 3 units of blood transfusion. Review of Systems Review of Systems: All systems reviewed & are unremarkable except as noted in Subjective Physical Exam Constitutional: + ill appearing and + lethargic; no acute distress Respiratory: normal respiratory effort, lungs clear to auscultation Cardiovascular: Rate/Rhythm: regular rate and regular rhythm Heart Sounds: normal S1 and normal S2 Extremities: + edema Musculoskeletal: Right BKA Skin: no rashes, warm and dry Neurologic: awake; no focal motor deficits, not confused and not obtunded Psychiatric: A+Ox3, euthymic affect Results & Data ([facility]) Vital Signs (Past 12 Hours) Vital Signs Pulse Resp BP Pulse Ox 02/05/21 13:00 88 18 142/85 H 93 02/05/21 08:03 80 18 127/83 99 PG Care Time/CCT Total # of Minutes Spent Total Time Spent with Patient: Total time spent is greater than 50% in coordination of care (as documented) at patient's floor/unit and/or counseling patient: Coding Level of Care Code 66805 Subseq Hosp Care Lvl 3 Diagnoses End stage renal disease N18.6 UTI (urinary tract infection) N39.0 Hematuria presence: without hematuria Urinary tract infection type: site unspecified Benign essential hypertension I10 Anemia D64.9 Anemia type: unspecified type (1) UTI (urinary tract infection) Hematuria presence: without hematuria Urinary tract infection type: site unspecified Qualified Code(s): N39.0 - Urinary tract infection, site not specified (2) Anemia Anemia type: unspecified type Qualified Code(s): D64.9 - Anemia, unspecified
[2021-02-05] MEDS: CALCIUM ACETATE 667 MG CAP/TAB PO SCH ×3 (17:36→18:30)
[2021-02-05] MEDS: NEPHROCAPS PO SCH (17:37)
[2021-02-05] MEDS: METOPROLOL SUCC 50MG EXT REL TAB PO SCH ×2 (17:37→20:58)
[2021-02-05] MEDS: guaiFENesin 600 MG TABCR PO SCH ×2 (17:37→20:57)
[2021-02-05] MEDS: hydrALAZINE 10 MG TAB PO SCH ×3 (17:37→20:58)
[2021-02-05] MEDS: LACTULOSE SYRUP 20 GM/30 ML UDC PO SCH (17:37)
[2021-02-05] MEDS: ASPIRIN 81 MG ECTAB PO SCH (17:37)
[2021-02-05] MEDS: PANTOprazole 40 MG TAB PO SCH (17:37)
[2021-02-05] MEDS: WARFARIN SOD 3 MG TAB PO SCH (18:40)
[2021-02-05] MEDS: traZODone HCL 50 MG TAB PO SCH (20:57)
[2021-02-05] MEDS: chlorproMAZINE HCL 25 MG TAB PO SCH (20:58)
[2021-02-06] MEDS: oxyCODONE HCL IR 5 MG TAB (IMMEDIATE RELEASE) PO PRN ×4 (00:55→21:27)
[2021-02-06 07:54] LABS: Hematocrit (blood only) 27.5 % (37-47); Hemoglobin 8.6 g/dL (12.0-16.0); Mean Corpuscular Hemoglobin 29.9 pg (25-34); Mean Corpuscular Hgb Conc 31.3 g/dL (32-36); Mean Corpuscular Volume 95.5 fL (80-100); Mean Platelet Volume 8.4 fL (7.4-10.4); Nucleated RBC # (auto) 0.03 K/uL (0-0); Nucleated RBC % (auto) 0.4 %; Platelet Count 238 K/uL (130-400); RDW Coefficient of Variation 17.3 % (11.5-14.5); Red Blood Count 2.88 M/uL (4.2-5.4); White Blood Count 6.89 K/uL (4.8-10.8)
[2021-02-06 08:28] LABS: Albumin Level 2.2 gm/dl (3.4-5.0); Creatinine Clr Calc Pharmacy 32.8 ml/min; Est GFR (African American) 27.6 ml/min; Est GFR (Non-African American) 23.8 ml/min; Phosphorus 3.5 mg/dl (2.5-4.9); Potassium 4.8 mmol/L (3.5-5.1)
[2021-02-06] MEDS: ASPIRIN 81 MG ECTAB PO SCH (09:18)
[2021-02-06] MEDS: CALCIUM ACETATE 667 MG CAP/TAB PO SCH ×3 (09:18→17:55)
[2021-02-06] MEDS: FLUTICASONE FUROATE 100MCG 14 PUFFS/INHALER INH SCH (09:19)
[2021-02-06] MEDS: UMECLIDINIUM/VILANTEROL 62.5/25MCG 7 PUFFS/INHALER INH SCH (09:19)
[2021-02-06] MEDS: guaiFENesin 600 MG TABCR PO SCH ×2 (09:19→21:27)
[2021-02-06] MEDS: hydrALAZINE 10 MG TAB PO SCH ×3 (09:20→21:33)
[2021-02-06] MEDS: LACTULOSE SYRUP 20 GM/30 ML UDC PO SCH (09:20)
[2021-02-06] MEDS: METOPROLOL SUCC 50MG EXT REL TAB PO SCH ×2 (09:21→21:34)
[2021-02-06] MEDS: NEPHROCAPS PO SCH (09:21)
[2021-02-06] MEDS: NICOTINE 21 MG/24 HR TDSY TD SCH (09:21)
[2021-02-06] MEDS: PANTOprazole 40 MG TAB PO SCH (09:21)
[2021-02-06] MEDS: POLYETHYLENE (MIRALAX) 17 GM PACK PO SCH ×2 (09:22→21:32)
[2021-02-06] MEDS: INSULIN ASPART 100 UNITS/ML 3 ML PEN SC SCH ×4 (10:08→21:57)
[2021-02-06] MEDS: INSULIN GLARGINE SOLOSTAR 100 UNITS/ML 3 ML PEN SC SCH ×2 (10:09→22:14)
--- NOTE | 2021-02-06 10:11 | Hospitalist Progress Note ---
Date of Service February 06, 2021 Assessment & Plan (1) Acute on chronic renal failure: 60 y/ female with PMHx of atrial fibrillation, anemia, chronic kidney disease, HTN, CVA, type 2 diabetes, heart failure, bipolar disorder, and right BKA admitted for wfdud-zp-dvaskbo renal failure. Qnwwy-fw-dgiwyze renal failure: - Cr 4.21 on admission (baseline 1.8-2.4 with some recent measurements in the 4s) - IJ THC insertion on 02/01 followed by 1st run HD without complication - Continue intermittent dialysis - Sunday, , Sunday - Awaiting outpatient dialysis appointment arrangement before discharge to [facility] -Per case management documentation patient will need COVID testing prior to discharge Anemia: - In the context of bleeding/clotting around dialysis catheter site - Hb initially dropped from 9.2 (02/01) to 6.1 (02/02); received total of 3 units PRBCs - Hgb remains stable at this time - Vascular surgery placed suture at catheter site on 02/03 - Epogen given 01/27. Epogen and venofer given 02/03 Right-sided heart failure; - Chronic appearing, stable at this time - Goal to maintain net negative fluid balance Chronic hyponatremia: - Asymptomatic throughout this admission, likely secondary to renal failure - 128 at admission - Continue to monitor with BMPs Type 2 diabetes: - BSGs elevated to 200s and 300s - Continue Lantus BID and sliding scale insulin - BSGs ACHS UTI: - UCx with E. coli growth but without symptoms - patient received ceftriaxone followed by cefepime Atrial fibrillation: - NSR since admission, continue home metoprolol - Restarted warfarin - Continue to monitor INR daily Bipolar disorder, anxiety: - Continue home regimen Diet: Dialysis/renal, carb consistent, with fluid restriction DVT ppx: warfarin Code status: full code (2) Anemia: (3) End stage renal disease: (4) Dialysis patient: (5) Acute on chronic right-sided congestive heart failure: (6) Hyponatremia: (7) Diabetic nephropathy: Admission and Anticipated Discharge Date Admission Date: January 25, 2021 Supervising Physician Co-Signing Physician Notes Resident Physician Supervision Note: I independently interviewed and examined the patient and verified the senior history and physical, reviewed labs and image studies and agree with resident Dr. Santiago findings and care plan. Subjective Patient feeling overall well this morning, had no complications with dialysis yesterday. Still awaiting confirmation of chair time as outpatient dialysis on Sunday. Did have 1 bout of fecal incontinence overnight, but no further episodes. States that this might happen occasionally given while at [facility]. Is planning to move to [place] in the coming months, to live closer to her family. Review of Systems Review of Systems: All systems reviewed & are unremarkable except as noted in Subjective Physical Exam Constitutional: WD/WN, vitals as above Eyes: PERRL, conjunctivae normal, anicteric sclerae Respiratory: normal respiratory effort and + prolonged expiratory phase; no respiratory distress and no audible wheezes Auscultation: no crackles, no rales and no rhonchi Cardiovascular: Rate/Rhythm: regular rate and regular rhythm Heart Sounds: no gallop, no murmur and no cardiac rub Vessels: normal peripheral pulses; no JVD Extremities: + edema Gastrointestinal (Abdomen): Inspection/Auscultation: normal bowel sounds; abdomen not distended Percussion/Palpation: abdomen soft; abdomen nontender and no guarding Neurologic: PERRL, EOMI, accommodation nl, no face palsy, no dysarthria CN's II-XI intact bilaterally and moves all extremities Psychiatric: Orientation: alert and oriented x 3 Results & Data Results & Data ([facility]) Vital Signs (Past 12 Hours) Vital Signs Temp Pulse Resp BP Pulse Ox 02/06/21 06:05 36.8 C 82 16 125/77 96 02/05/21 22:29 36.7 C 94 H 16 145/87 H 93 Laboratory Results 02/06/21 02/06/21 02/06/21 Range/Units 09:40 08:13 07:39 WBC (4.8-10.8) K/uL RBC (4.2-5.4) M/uL Hgb (12.0-16.0) g/dL Hct (37-47) % MCV (80-100) fL MCH (25-34) pg MCHC (32-36) g/dL RDW Std Deviation (36.4-46.3) fL RDW Coeff of Esa (11.5-14.5) % Plt Count (130-400) K/uL MPV (7.4-10.4) fL Absolute Nucleated RBC (0-0) K/uL Nucleated RBC % (auto) % PT 11.2 (9.0-12.0) Seconds INR 1.1 (0.9-1.1) Sodium 133 L (136-145) mmol/L Potassium 4.8 (3.5-5.1) mmol/L Chloride 103 (98-107) mmol/L Carbon Dioxide 25 (21-32) mmol/L Anion Gap 5.0 (3-11) BUN 33 H (7-18) mg/dl Creatinine 2.21 H D (0.6-1.2) mg/dl Est Cr Clr Drug Dosing 32.8 ml/min Est GFR ( Amer) 27.6 ml/min Est GFR (Non-Af Amer) 23.8 ml/min BUN/Creatinine Ratio 15.0 (10-20) Glucose 116 H (70-99) mg/dl POC Glucose 121 H (70-99) mg/dl Calcium 8.0 L (8.5-10.1) mg/dl Phosphorus 3.5 (2.5-4.9) mg/dl Albumin 2.2 L (3.4-5.0) gm/dl 02/06/21 02/05/21 02/05/21 Range/Units 07:39 20:44 18:07 WBC 6.89 (4.8-10.8) K/uL RBC 2.88 L (4.2-5.4) M/uL Hgb 8.6 L (12.0-16.0) g/dL Hct 27.5 L (37-47) % MCV 95.5 (80-100) fL MCH 29.9 (25-34) pg MCHC 31.3 L (32-36) g/dL RDW Std Deviation 57.0 H (36.4-46.3) fL RDW Coeff of Esa 17.3 H (11.5-14.5) % Plt Count 238 (130-400) K/uL MPV 8.4 (7.4-10.4) fL Absolute Nucleated RBC 0.03 H (0-0) K/uL Nucleated RBC % (auto) 0.4 % PT (9.0-12.0) Seconds INR (0.9-1.1) Sodium (136-145) mmol/L Potassium (3.5-5.1) mmol/L Chloride (98-107) mmol/L Carbon Dioxide (21-32) mmol/L Anion Gap (3-11) BUN (7-18) mg/dl Creatinine (0.6-1.2) mg/dl Est Cr Clr Drug Dosing ml/min Est GFR ( Amer) ml/min Est GFR (Non-Af Amer) ml/min BUN/Creatinine Ratio (10-20) Glucose (70-99) mg/dl POC Glucose 136 H 100 H (70-99) mg/dl Calcium (8.5-10.1) mg/dl Phosphorus (2.5-4.9) mg/dl Albumin (3.4-5.0) gm/dl 02/05/21 Range/Units 12:18 WBC (4.8-10.8) K/uL RBC (4.2-5.4) M/uL Hgb (12.0-16.0) g/dL Hct (37-47) % MCV (80-100) fL MCH (25-34) pg MCHC (32-36) g/dL RDW Std Deviation (36.4-46.3) fL RDW Coeff of Esa (11.5-14.5) % Plt Count (130-400) K/uL MPV (7.4-10.4) fL Absolute Nucleated RBC (0-0) K/uL Nucleated RBC % (auto) % PT (9.0-12.0) Seconds INR (0.9-1.1) Sodium (136-145) mmol/L Potassium (3.5-5.1) mmol/L Chloride (98-107) mmol/L Carbon Dioxide (21-32) mmol/L Anion Gap (3-11) BUN (7-18) mg/dl Creatinine (0.6-1.2) mg/dl Est Cr Clr Drug Dosing ml/min Est GFR ( Amer) ml/min Est GFR (Non-Af Amer) ml/min BUN/Creatinine Ratio (10-20) Glucose (70-99) mg/dl POC Glucose 193 H (70-99) mg/dl Calcium (8.5-10.1) mg/dl Phosphorus (2.5-4.9) mg/dl Albumin (3.4-5.0) gm/dl Medications Administered Current Inpatient Medications Acetaminophen (Acetaminophen 325 Mg Tab) 650 mg PO Q4H PRN PRN Reason: Pain or Fever Stop: 02/24/21 20:19 Last Admin: 02/05/21 13:14 Dose: 650 mg Documented by: Aspirin (Aspirin 81 Mg Ectab) 81 mg PO QAM [facility] Stop: 02/25/21 08:59 Last Admin: 02/06/21 09:18 Dose: 81 mg Documented by: Bisacodyl (Bisacodyl 10 Mg Supp) 10 mg [place] UD PRN PRN Reason: Constipation Stop: 02/24/21 20:19 Calcium Acetate (Calcium Acetate 667 Mg Cap/Tab) 667 mg PO TIDM [facility] Stop: 03/02/21 11:59 Last Admin: 02/06/21 09:18 Dose: 667 mg Documented by: Chlorpromazine HCl (Chlorpromazine Hcl 25 Mg Tab) 150 mg PO HS [facility] Stop: 02/24/21 20:59 Last Admin: 02/05/21 20:58 Dose: 150 mg Documented by: Dextrose (Dextrose 50% 50 Ml Syringe) 25 - 50 ml IV UD PRN; Protocol PRN Reason: Hypoglycemia Protocol Stop: 02/24/21 20:19 Fluticasone Furoate (Fluticasone Furoate 100mcg 14 Puffs/Inhaler) 1 puffs INH DAILY [facility] Stop: 02/25/21 08:59 Last Admin: 02/06/21 09:19 Dose: 1 puffs Documented by: Glucagon (Glucagon For Inj 1 Mg Vial) 1 mg SQ UD PRN; Protocol PRN Reason: Hypoglycemia Protocol Stop: 02/24/21 20:19 Glucose (Glucose 10 Tabs/Tube) 4 - 8 tabs PO UD PRN; Protocol PRN Reason: Hypoglycemia Protocol Stop: 02/24/21 20:19 Glucose (Glucose 40% Gel 15 Gm Tube) 15 - 30 gm PO UD PRN; Protocol PRN Reason: Hypoglycemia Protocol Stop: 02/24/21 20:19 Guaifenesin (Guaifenesin 600 Mg Tabcr) 600 mg PO Q12 [facility] Stop: 03/06/21 20:59 Last Admin: 02/06/21 09:19 Dose: 600 mg Documented by: Hydralazine HCl (Hydralazine 10 Mg Tab) 10 mg PO TID [facility] Stop: 02/24/21 20:59 Last Admin: 02/06/21 09:20 Dose: 10 mg Documented by: Insulin Aspart (Insulin Aspart 100 Units/Ml 3 Ml Pen) 0 units SC ACHS [facility] Stop: 03/02/21 16:29 Last Admin: 02/06/21 10:08 Dose: 7 units Documented by: Insulin Glargine (Insulin Glargine Solostar 100 Units/Ml 3 Ml Pen) 12 units SC BID [facility] Stop: 03/03/21 20:59 Last Admin: 02/06/21 10:09 Dose: 12 units Documented by: Lactulose (Lactulose Syrup 20 Gm/30 Ml Udc) 20 gm PO DAILY [facility] Stop: 02/25/21 08:59 Last Admin: 02/06/21 09:20 Dose: 20 gm Documented by: Lidocaine (Lidocaine 5% 1 Patch) 1 patch TD DAILY [facility] Stop: 02/25/21 08:59 Last Admin: 02/06/21 10:14 Dose: 1 patch Documented by: Metoprolol Succinate (Metoprolol Succ 50mg Ext Rel Tab) 50 mg PO BID [facility] Stop: 02/24/21 20:59 Last Admin: 02/06/21 09:21 Dose: 50 mg Documented by: Miscellaneous (Remove Lidoderm Patch) 1 ea N/A DAILY@2100 [facility] Stop: 02/24/21 20:59 Last Admin: 02/05/21 21:04 Dose: 1 ea Documented by: Miscellaneous (Carbohydrates For Hypoglycemia ) 15 - 30 gm PO UD PRN PRN Reason: Hypoglycemia Protocol Stop: 02/24/21 20:19 Miscellaneous (Remove Nicoderm Patch) 1 ea N/A DAILY@0859 [facility] Stop: 02/25/21 08:58 Last Admin: 02/06/21 09:18 Dose: 1 ea Documented by: Nicotine (Nicotine 21 Mg/24 Hr Tdsy) 21 mg TD QAM [facility] Stop: 02/25/21 08:59 Last Admin: 02/06/21 09:21 Dose: 21 mg Documented by: Oxycodone HCl (Oxycodone Hcl Ir 5 Mg Tab (Immediate Release)) 5 mg PO Q6H PRN PRN Reason: Pain Stop: 02/08/21 20:19 Last Admin: 02/06/21 09:16 Dose: 5 mg Documented by: Pantoprazole Sodium (Pantoprazole 40 Mg Tab) 40 mg PO DAILY [facility] Stop: 02/25/21 08:59 Last Admin: 02/06/21 09:21 Dose: 40 mg Documented by: Polyethylene Glycol (Polyethylene (Miralax) 17 Gm Pack) 17 gm PO BID [facility] Stop: 02/24/21 20:59 Last Admin: 02/06/21 09:22 Dose: Not Given Documented by: Trazodone HCl (Trazodone Hcl 50 Mg Tab) 50 mg PO HS [facility] Stop: 02/24/21 20:59 Last Admin: 02/05/21 20:57 Dose: 50 mg Documented by: Umeclidinium/Vilanterol (Umeclidinium/Vilanterol 62.5/25mcg 7 Puffs/Inhaler) 1 puffs INH DAILY [facility] Stop: 02/25/21 08:59 Last Admin: 02/06/21 09:19 Dose: 1 puffs Documented by: Vitamin B Complex/Folic Acid (Nephrocaps) 1 cap PO QAM [facility] Stop: 03/03/21 08:59 Last Admin: 02/06/21 09:21 Dose: 1 cap Documented by: Warfarin Sodium (Warfarin Sod 3 Mg Tab) 3 mg PO DAILY@1600 [facility] Stop: 03/07/21 17:29 Last Admin: 02/05/21 18:40 Dose: 3 mg Documented by: Ziprasidone (Ziprasidone Hcl 20 Mg Cap) 20 mg PO BID [facility] Stop: 02/24/21 20:59 Last Admin: 02/06/21 09:23 Dose: 20 mg Documented by: Resident Activity Tracking Resident Involvement: Resident Care Provided Care Provided: Adult Hospital Medicine (1) Anemia Anemia type: unspecified type Qualified Code(s): D64.9 - Anemia, unspecified (2) Acute on chronic renal failure Acute renal failure type: unspecified Chronic kidney disease stage: unspecified stage Qualified Code(s): N17.9 - Acute kidney failure, unspecified; N18.9 - Chronic kidney disease, unspecified (3) Diabetic nephropathy Diabetes mellitus type: type 2 Qualified Code(s): E11.21 - Type 2 diabetes mellitus with diabetic nephropathy
[2021-02-06] MEDS: LIDOCAINE 5% 1 PATCH TD SCH (10:14)
[2021-02-06 10:22] LABS: INR 1.1 (0.9-1.1); Prothrombin Time 11.2 Seconds (9.0-12.0)
--- NOTE | 2021-02-06 11:56 | Nephrology Progress Note ---
Date of Service February 06, 2021 Assessment & Plan (1) End stage renal disease: End-stage renal disease, started on hemodialysis during this admission for rapid worsening of renal function and difficult to control volume overload And electrolyte abnormality. ESRD most likely secondary to diabetic nephropathy however never had a kidney biopsy and renal function rapidly worsened over last 6 months. Had tunneled dialysis catheter and started on dialysis of on 02/01/2021. Had significant bleeding from catheter area requiring 3 units of blood transfusion, bleeding stopped after skin stitch around the catheter and pressure dressing, hemoglobin stabilized. Overall clinically stable, blood pressure and volume status acceptable. -- continue on intermittent hemodialysis TTS, if by tomorrow outpatient dialysis unit check time available for Sunday, she can be discharged as tomorrow -- Epogen 51915 units during dialysis On 02/05/2021 -- continue on Nephrocaps and phosphate binder -- left arm nephrology precaution for dialysis access in future -- dose medications for GFR less than 10 will follow Admission and Anticipated Discharge Date Admission Date: January 25, 2021 Subjective Zahida staying about the same clinically, denies any specific symptoms however she always looks lethargic and sleepy but wakes up easily and answers question appropriately. blood pressure, volume status, electrolyte acceptable. Had dialysis yesterday. Review of Systems Review of Systems: All systems reviewed & are unremarkable except as noted in Subjective Physical Exam Constitutional: + ill appearing and + lethargic; no acute distress Respiratory: normal respiratory effort, lungs clear to auscultation Cardiovascular: Rate/Rhythm: regular rate and regular rhythm Heart Sounds: normal S1 and normal S2 Extremities: + edema Skin: no rashes, warm and dry Neurologic: awake; no focal motor deficits, not confused and not obtunded Psychiatric: A+Ox3, euthymic affect Results & Data ([facility]) Vital Signs (Past 12 Hours) Vital Signs Temp Pulse Resp BP Pulse Ox 02/06/21 06:05 36.8 C 82 16 125/77 96 PG Care Time/CCT Total # of Minutes Spent Total Time Spent with Patient: Total time spent is greater than 50% in coordination of care (as documented) at patient's floor/unit and/or counseling patient: Coding Level of Care Code 86861 Subseq Hosp Care Lvl 2 Diagnoses End stage renal disease N18.6
[2021-02-06] MEDS: WARFARIN SOD 3 MG TAB PO SCH (17:51)
[2021-02-06] MEDS: ACETAMINOPHEN 325 MG TAB PO PRN (18:08)
[2021-02-06] MEDS: chlorproMAZINE HCL 25 MG TAB PO SCH (21:26)
[2021-02-06] MEDS: traZODone HCL 50 MG TAB PO SCH (21:32)
[2021-02-07] MEDS: ACETAMINOPHEN 325 MG TAB PO PRN ×2 (03:58→13:11)
[2021-02-07] MEDS: oxyCODONE HCL IR 5 MG TAB (IMMEDIATE RELEASE) PO PRN ×4 (03:59→21:37)
[2021-02-07 06:20] LABS: Basophils # (auto) 0.03 K/uL (0-0.2); Basophils % (auto) 0.6 %; Eosinophils % (auto) 3.7 %; Hematocrit (blood only) 27.9 % (37-47); Hemoglobin 8.6 g/dL (12.0-16.0); Immature Granulocytes # (auto) 0.01 K/uL (0.00-0.02); Immature Granulocytes % (auto) 0.2 %; Lymphocytes # (auto) 0.61 K/uL (1.2-3.4); Lymphocytes % (auto) 11.3 %; Mean Corpuscular Hemoglobin 29.6 pg (25-34); Mean Corpuscular Hgb Conc 30.8 g/dL (32-36); Mean Corpuscular Volume 95.9 fL (80-100); Mean Platelet Volume 8.7 fL (7.4-10.4); Monocytes % (auto) 18.5 %; Neutrophils # (auto) 3.55 K/uL (1.4-6.5); Neutrophils % (auto) 65.7 %; Nucleated RBC # (auto) 0.02 K/uL (0-0); Nucleated RBC % (auto) 0.3 %; Platelet Count 244 K/uL (130-400); RDW Coefficient of Variation 17.7 % (11.5-14.5); Red Blood Count 2.91 M/uL (4.2-5.4)
[2021-02-07 06:31] LABS: INR 1.2 (0.9-1.1); Prothrombin Time 11.6 Seconds (9.0-12.0)
[2021-02-07 06:53] LABS: BUN Creatinine Ratio 16.2 (10-20); Calcium 8.1 mg/dl (8.5-10.1); Creatinine Clr Calc Pharmacy 28.6 ml/min; Est GFR (African American) 23.4 ml/min; Est GFR (Non-African American) 20.2 ml/min; Potassium 4.8 mmol/L (3.5-5.1)
--- NOTE | 2021-02-07 07:01 | Hospitalist Progress Note ---
Date of Service February 07, 2021 Assessment & Plan (1) Acute on chronic renal failure: 60 y/ female with PMHx of atrial fibrillation, anemia, chronic kidney disease, HTN, CVA, type 2 diabetes, heart failure, bipolar disorder, and right BKA admitted for vojlg-hn-vqnfvgs renal failure. Stable. Kzfwt-ut-iafkgos renal failure: - Cr 4.21 on admission (baseline 1.8-2.4 with some recent measurements in the 4s) - IJ THC insertion on 02/01 followed by 1st run HD without complication - Continue intermittent dialysis - Sunday, , Sunday - Awaiting outpatient dialysis appointment arrangement before discharge to [facility] -Per case management documentation patient will need COVID testing prior to discharge Anemia: - In the context of bleeding/clotting around dialysis catheter site - Hb initially dropped from 9.2 (02/01) to 6.1 (02/02); received total of 3 units PRBCs - Hgb remains stable at this time - Vascular surgery placed suture at catheter site on 02/03 - Epogen given 01/27. Epogen and venofer given 02/03. Epogen given 02/05 Type 2 diabetes: - BSGs elevated to 200s and 300s. 02/07 - Continue Lantus BID and sliding scale insulin.lantus 12 bid. aspart 1:6 carb ratio. CF 20. - BSGs ACHS Chronic obstructive pulmonary disease - worsened physical exam on 02/07 w/ noticeable expiratory wheezes - continue home inhalers - added q6h scheduled albuterol nebulizer treatments. patient reports good relief - continue Mucinex for expectoration Right-sided heart failure; - Chronic appearing, stable at this time - cumulative 8.2L in 12L out. wt is 87.543kg 02/06, stable/decreasing since admission - Goal to maintain net negative fluid balance Chronic hyponatremia: - Asymptomatic throughout this admission, likely secondary to renal failure - 128 at admission - Continue to monitor with BMPs UTI: - UCx with E. coli growth but without symptoms - patient received ceftriaxone followed by cefepime Atrial fibrillation: - NSR since admission, continue home metoprolol - Restarted warfarin - Continue to monitor INR daily. 1.3 as of 02/07 Bipolar disorder, anxiety: - Continue home regimen Diet: Dialysis/renal, carb consistent, with fluid restriction Dispo: awaiting insurance approval for outpatient dialysis. afterwards, would return to [facility] DVT ppx: warfarin Code status: full code (2) Anemia: (3) End stage renal disease: (4) Dialysis patient: (5) Acute on chronic right-sided congestive heart failure: (6) Hyponatremia: (7) Diabetic nephropathy: (8) COPD (chronic obstructive pulmonary disease): Admission and Anticipated Discharge Date Admission Date: January 25, 2021 Supervising Physician Co-Signing Physician Notes I personally examined the patient and verified all senior points of history and exam, discussed case, and agree with decision making with Dr Galicia feeling ok. breathing ok. now has outpt chair time. was apparently still waiting on snf transport, however vitals noted nad heent nc at mmm breathing unlabored no accessory muscles good effort skin no rashes no pallor or icterus ESRD - now on HD. outpt arrangements being completed. otherwise as above Subjective Patient is feeling well. She has discomfort at her R IJ dialysis catheter site and her chronic low back pain. She is tolerating meals. No other complaints. Review of Systems Review of Systems: Constitutional: Denies fever, chills, weight change Eyes: Denies blurry vision, vision changes ENT: Denies sore throat, sinus pain Cardiovascular: Denies chest pain, palpitations Respiratory: Denies shortness of breath Gastrointestinal: Denies abdominal pain, nausea, vomiting, constipation, diarrhea Genitourinary: Has madden. Musculoskeletal: See HPI Neurological: Denies headache, numbness, tingling, focal weakness Physical Exam Physical Exam: Intermittent tachycardia ~100 overnight Vitals stable., resolved. Pulse 72 at 1109AM. General: Grossly A&O. NAD. Cooperative. HEENT: Atraumatic, normocephalic. Pulm: Mild basilar crackles. Diffuse expiratory wheezes. Cardiac: RRR, -mrg. 3+ LE edema on R leg. Abdominal: Nontender, nondistended, soft. Msk: R knee stump in stockings. Results & Data Results & Data ([facility]) Vital Signs (Past 12 Hours) Vital Signs Temp Pulse Resp BP Pulse Ox 02/06/21 23:08 36.9 C 101 H 18 144/95 H 96 02/06/21 21:28 83 22 142/90 H 96 Resident Activity Tracking Resident Involvement: Resident Care Provided Care Provided: Adult Hospital Medicine (1) Anemia Anemia type: unspecified type Qualified Code(s): D64.9 - Anemia, unspecified (2) Acute on chronic renal failure Acute renal failure type: unspecified Chronic kidney disease stage: unspecified stage Qualified Code(s): N17.9 - Acute kidney failure, unspecified; N18.9 - Chronic kidney disease, unspecified (3) Diabetic nephropathy Diabetes mellitus type: type 2 Qualified Code(s): E11.21 - Type 2 diabetes mellitus with diabetic nephropathy
[2021-02-07] MEDS: INSULIN ASPART 100 UNITS/ML 3 ML PEN SC SCH ×4 (09:19→21:28)
[2021-02-07] MEDS: METOPROLOL SUCC 50MG EXT REL TAB PO SCH ×2 (09:25→21:25)
[2021-02-07] MEDS: ASPIRIN 81 MG ECTAB PO SCH (09:25)
[2021-02-07] MEDS: NEPHROCAPS PO SCH (09:25)
[2021-02-07] MEDS: LACTULOSE SYRUP 20 GM/30 ML UDC PO SCH (09:26)
[2021-02-07] MEDS: hydrALAZINE 10 MG TAB PO SCH ×3 (09:26→21:26)
[2021-02-07] MEDS: FLUTICASONE FUROATE 100MCG 14 PUFFS/INHALER INH SCH (09:27)
[2021-02-07] MEDS: guaiFENesin 600 MG TABCR PO SCH ×2 (09:27→21:25)
[2021-02-07] MEDS: LIDOCAINE 5% 1 PATCH TD SCH (09:28)
[2021-02-07] MEDS: CALCIUM ACETATE 667 MG CAP/TAB PO SCH ×3 (09:28→15:51)
[2021-02-07] MEDS: INSULIN GLARGINE SOLOSTAR 100 UNITS/ML 3 ML PEN SC SCH ×2 (09:37→21:29)
[2021-02-07] MEDS: NICOTINE 21 MG/24 HR TDSY TD SCH (09:38)
[2021-02-07] MEDS: PANTOprazole 40 MG TAB PO SCH (09:40)
[2021-02-07] MEDS: UMECLIDINIUM/VILANTEROL 62.5/25MCG 7 PUFFS/INHALER INH SCH (09:40)
[2021-02-07] MEDS: POLYETHYLENE (MIRALAX) 17 GM PACK PO SCH ×2 (09:41→21:23)
--- NOTE | 2021-02-07 10:40 | Nephrology Progress Note ---
Date of Service February 07, 2021 Assessment & Plan (1) End stage renal disease: End-stage renal disease, started on hemodialysis during this admission for rapid worsening of renal function and difficult to control volume overload And electrolyte abnormality. ESRD most likely secondary to diabetic nephropathy however never had a kidney biopsy and renal function rapidly worsened over last 6 months. Had tunneled dialysis catheter and started on dialysis of on 02/01/2021. Had significant bleeding from catheter area requiring 3 units of blood transfusion, bleeding stopped after skin stitch around the catheter and pressure dressing, hemoglobin stabilized. Overall clinically stable, blood pressure and volume status acceptable. Had dialysis Sunday, electrolyte acceptable. -- continue on intermittent hemodialysis [facility] [place] [facility] waiting on decision regarding transportation from [facility]. if transportation can be arranged she possibly can be discharged this afternoon with plan for dialysis at [facility] as early as tomorrow. -- Epogen 92228 units during dialysis given on 02/05/2021 -- continue on Nephrocaps and phosphate binder -- left arm nephrology precaution for dialysis access in future -- dose medications for GFR less than 10 will follow Admission and Anticipated Discharge Date Admission Date: January 25, 2021 Subjective Complaining so feeling thirsty, denies shortness of breath or chest pain. Blood pressure, electrolyte acceptable. Review of Systems Review of Systems: All systems reviewed & are unremarkable except as noted in Subjective Physical Exam Constitutional: + ill appearing; no acute distress Respiratory: normal respiratory effort, lungs clear to auscultation Cardiovascular: Rate/Rhythm: regular rate and regular rhythm Heart Sounds: normal S1 and normal S2 Extremities: + edema Skin: no rashes, warm and dry Neurologic: awake; no focal motor deficits, not confused and not obtunded Psychiatric: A+Ox3, euthymic affect Results & Data ([facility]) Vital Signs (Past 12 Hours) Vital Signs Temp Pulse Resp BP Pulse Ox 02/06/21 23:08 36.9 C 101 H 18 144/95 H 96 PG Care Time/CCT Total # of Minutes Spent Total Time Spent with Patient: Total time spent is greater than 50% in coordination of care (as documented) at patient's floor/unit and/or counseling patient: Coding Level of Care Code 54044 Subseq Hosp Care Lvl 2 Diagnoses End stage renal disease N18.6
[2021-02-07] MEDS: ALBUTEROL 0.083% NEBU SOLN 3 ML VIAL NEB SCH ×2 (11:08→19:08)
[2021-02-07] MEDS: WARFARIN SOD 3 MG TAB PO SCH (15:50)
--- NOTE | 2021-02-07 17:27 | Billing Data ---
Date of Service February 07, 2021 Coding Level of Care Code 46549 Subseq Hosp Care Lvl 2
[2021-02-07] MEDS: chlorproMAZINE HCL 25 MG TAB PO SCH (21:33)
[2021-02-07] MEDS: traZODone HCL 50 MG TAB PO SCH (21:35)
[2021-02-08] MEDS: ALBUTEROL 0.083% NEBU SOLN 3 ML VIAL NEB SCH ×4 (00:55→19:15)
[2021-02-08] MEDS: oxyCODONE HCL IR 5 MG TAB (IMMEDIATE RELEASE) PO PRN ×3 (03:49→23:16)
[2021-02-08 06:35] LABS: Basophils # (auto) 0.03 K/uL (0-0.2); Basophils % (auto) 0.4 %; Eosinophils # (auto) 0.17 K/uL (0-0.5); Eosinophils % (auto) 2.4 %; Hemoglobin 8.7 g/dL (12.0-16.0); Immature Granulocytes # (auto) 0.03 K/uL (0.00-0.02); Immature Granulocytes % (auto) 0.4 %; Lymphocytes # (auto) 0.72 K/uL (1.2-3.4); Mean Corpuscular Hemoglobin 30.6 pg (25-34); Mean Corpuscular Hgb Conc 32.2 g/dL (32-36); Mean Corpuscular Volume 95.1 fL (80-100); Monocytes # (auto) 0.46 K/uL (0.11-0.59); Monocytes % (auto) 6.4 %; Neutrophils # (auto) 5.76 K/uL (1.4-6.5); Neutrophils % (auto) 80.4 %; Platelet Count 251 K/uL (130-400); RDW Coefficient of Variation 18.1 % (11.5-14.5); RDW Standard Deviation 58.7 fL (36.4-46.3); Red Blood Count 2.84 M/uL (4.2-5.4); White Blood Count 7.17 K/uL (4.8-10.8)
[2021-02-08 06:46] LABS: INR 1.1 (0.9-1.1); Prothrombin Time 11.4 Seconds (9.0-12.0)
[2021-02-08 07:16] LABS: Calcium 8.2 mg/dl (8.5-10.1); Creatinine Clr Calc Pharmacy 22.6 ml/min; Est GFR (African American) 17.6 ml/min; Est GFR (Non-African American) 15.2 ml/min; Potassium 5.7 mmol/L (3.5-5.1)
--- NOTE | 2021-02-08 07:36 | Discharge Summary ---
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 Normal renal ultrasound. Renal function continues to worsen and creatinine now up to 4.0-4.2 and GFR around 10 with repeated episodes of hyperkalemia, hyponatremia, and low hemoglobin along with a low blood pressure and low urine output. She was sent in for gentle fluid and monitoring. She was previously admitted and treated for MRSA pneumonia and discharged just over 90 days ago. She has had crackles on her lungs bilaterally at the facility she is coming from. She does not not any trouble breathing at baseline, she does not recall an aspiration event or any coughing with eating. She was eating a sandwich in the room when I saw her and her front tooth had just fallen out, and she may have swallowed the tooth. She has a past medical history of Bipolar, HFpEF, COPD, Anemia, and IDDM. She is taking Chlorpromazine, and Ziprazodone for her Bipolar, this was confirmed with [facility]. Discharge Exam Intermittent epistaxis all night. Breathing is ok. Eating fine. Sore at catheter site. No other complaints. Other ROS neg. General: Grossly A&O. NAD. Cooperative. HEENT: Atraumatic, normocephalic. Pulm: Some transmitted upper airway sounds. RLW faint slight crackles on inspiration. Otehrwise clear. No resp distress. Cardiac: RRR, -mrg. 2+ LE edema on LLE Abdominal: Nontender, nondistended, soft. Msk: R knee stump in stockings. L great toe amputated. Integ: R upper chest wall catheter site intact. Discharge Data Allergies Allergy/AdvReac Type Severity Reaction Status Date / Time shellfish derived Allergy Unknown Unknown Verified 01/25/21 11:09 Consultations 01/25/21 17:45 ED Decision to Admit Stat 01/25/21 20:20 Consult Nephrology Routine Consult Nutrition Stat 01/31/21 13:21 Consult Vascular Surgery Routine Procedures Performed Operation Date: 02/01/21 10:20 Actual Procedures p Perm Cath Insertion, Right Interal Jugular Vein, Ultrasound Localization of Right Internal Jugular Vein, Fluoroscopy for Positioning, Moderate sedation [id number](Right) - Octavio Palma MD Ordered Studies 01/25/21 15:20 CT abd pelvis wo con Stat 02/01/21 07:17 EV cvc insrt tunnel 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 Stable. Cxhad-be-xaycsln renal failure: - Cr 4.21 on admission (baseline 1.8-2.4 with some recent measurements in the 4s) - IJ THC insertion on 02/01 followed by 1st run HD without complication - Continue intermittent dialysis - Sunday, , Sunday - Awaiting outpatient dialysis appointment arrangement before discharge to [facility] -Per case management documentation patient will need COVID testing prior to discharge Anemia: - In the context of bleeding/clotting around dialysis catheter site - Hb initially dropped from 9.2 (02/01) to 6.1 (02/02); received total of 3 units PRBCs - Hgb remains stable at this time - Vascular surgery placed suture at catheter site on 02/03 - Epogen given 01/27. Epogen and venofer given 02/03. Epogen given 02/05 Type 2 diabetes: - BSGs elevated to 200s and 300s. 02/07 - Continue Lantus BID and sliding scale insulin.lantus 12 bid. aspart 1:6 carb ratio. CF 20. - BSGs ACHS Chronic obstructive pulmonary disease - worsened physical exam on 02/07 w/ noticeable expiratory wheezes - continue home inhalers - added q6h scheduled albuterol nebulizer treatments. patient reports good relief - continue Mucinex for expectoration Right-sided heart failure; - Chronic appearing, stable at this time - cumulative 8.2L in 12L out. wt is 87.543kg 02/06, stable/decreasing since admission - Goal to maintain net negative fluid balance Chronic hyponatremia: - Asymptomatic throughout this admission, likely secondary to renal failure - 128 at admission - Continue to monitor with BMPs UTI: - UCx with E. coli growth but without symptoms - patient received ceftriaxone followed by cefepime Atrial fibrillation: - NSR since admission, continue home metoprolol - Restarted warfarin - Continue to monitor INR daily. 1.3 as of 02/07 Bipolar disorder, anxiety: - Continue home regimen Diet: Dialysis/renal, carb consistent, with fluid restriction Dispo: awaiting insurance approval for outpatient dialysis. afterwards, would return to [facility] DVT ppx: warfarin Code status: full code (2) Anemia: (3) End stage renal disease: Pt scheduled for permcath insertion later this morning by Dr Palma. Procedure discussed with pt, she is agreeable. Will schedule outpt for vein mapping and office visit to discuss AVF creation. (4) Dialysis patient: (5) Acute on chronic right-sided congestive heart failure: (6) Hyponatremia: (7) Diabetic nephropathy: (8) COPD (chronic obstructive pulmonary disease): Discharge Plan Discharge Items Patient Disposition: Transfer Inpatient Rehab Fac Reason For Visit: ABNORMAL LAB Discharge Diagnosis: end stage renal disease Activity: Per Instructions section Follow-up/Referrals: Radha Belcher PA-C [Physician Anaesthetic Technician] - 02/17/21 1:00 pm (Follow-up Ultrasound) Octavio Palma MD [Physician] - 02/23/21 10:00 am (Follow up appointment with ) Omega Umaña [Primary Care Provider] - Diet: Dialysis Renal Fluids: 1200ml (5 cups) Addtl Attending Provider Instructions: Zahida Garay is a 60 y/o female with PMHx of atrial fibrillation, anemia, chronic kidney disease, HTN, CVA, type 2 diabetes, heart failure, bipolar disorder, and right BKA admitted to [facility] from 01/25/21- 02/07/21 for mmfbk-my-bgdbmsj renal failure requiring new initiation of dialysis. There was bleeding from the R IJ site x several days, but this has resolved after an additional suture was placed. Patient's warfarin was held previously and restarted on 02/05/21 at 4pm. INR on 02/07/21 AM is 1.3. Todos: - See facility PCP in 1 week. Check BMP in 2 weeks. - Dialysis at [facility] on 02/08/21. Plan is for intermittent dialysis TTS. Follow up with Dr. Yessenia Hollis at [facility] nephrology in 2-2 weeks. - For warfarin, continue 3 mg every evening. Check PT and INR on 02/10/21 and 02/14/21. If INR >3, hold 1 dose of warfarin. No changes if INR is subtherapeutic. Will defer to facility PCP for further changes. - continue 1200mL daily fluid restriction and dialysis renal (low sodium) and diabetic diet. Medication changes - added albuterol inhaler q6h prn for patient's COPD - added prn Mucinex - added phosphate binder and nephrocaps vitamins per nephrology - adjusted insulin regimen. new regimen is 12 units of lantus BID plus sliding scale aspart Goal BSG Range: Low 120 mg/dL, High 160 mg/dL Correction Factor: 20 mg/dL/unit INS:CHO Ratio: 1 unit per 6 gms CHO consumed BSGs ACHS if eating, q6h if npo If pt is NPO, do NOT hold correction factor insulin without an order SLIDING SCALE If carb ratio is ordered: Give before meals based on what the patient plans to eat. If oral intake is uncertain, may give IMMEDIATELY after food is eaten Problems this admission Tryns-fk-azwknhp renal failure: - Cr 4.21 on admission (baseline 1.8-2.4 with some recent measurements in the 4s) - IJ THC insertion on 02/01 followed by 1st run HD without complication - Continue intermittent dialysis - Sunday, , Sunday - Outpatient dialysis arranged at [place]. Patient will be transported from [facility] -covid testing ordered Anemia: - In the context of bleeding/clotting around dialysis catheter site - Hb initially dropped from 9.2 (02/01) to 6.1 (02/02); received total of 3 units PRBCs - Hgb remains stable at this time - Vascular surgery placed suture at catheter site on 02/03 - Epogen given 01/27. Epogen and venofer given 02/03. Epogen given 02/05 Type 2 diabetes: - see above Chronic obstructive pulmonary disease - continue home inhalers - added q6h scheduled albuterol nebulizer treatments. patient reports good relief - continue Mucinex for expectoration Right-sided heart failure; - Chronic appearing, stable at this time - cumulative 8.2L in 12L out. wt is 87.543kg 02/06, stable/decreasing since admission - Goal to maintain net negative fluid balance Chronic hyponatremia: - Asymptomatic throughout this admission, likely secondary to renal failure - 128 at admission - Continue to monitor with BMPs UTI: - UCx with E. coli growth but without symptoms - patient received ceftriaxone followed by cefepime. course completed Atrial fibrillation: - NSR since admission, continue home metoprolol - Warfarin was held at admission because of dialysis catheter placement and bleeding from site afterwards - Restarted warfarin on 02/05 - Continue to monitor INR daily. 1.3 as of 02/07 Bipolar disorder, anxiety: - Continue home regimen Pending Studies at Discharge: No Stand-Alone Forms: My [facility] Skilled Items Patient informed of condition?: Yes DNR: No Discharge Level of Care: Skilled Communicable Disease: No Discharge Prognosis: Stable Lines: None Urinary Catheter: Yes Medications and DC Order Prescriptions: New Renal Caps 1 mg Capsule 1 cap PO QAM 30 Days Qty: 30 RF: 0 calcium acetate(phosphat bind) 667 mg Capsule 667 mg PO TIDM 30 Days Qty: 90 RF: 0 guaifenesin [Mucinex] 600 mg Tablet Extended Release 12hr 600 mg PO Q12 PRN (Reason: Cough) 30 Days Qty: 30 RF: 0 Lantus Solostar U-100 Insulin 100 unit/mL (3 mL) Insulin Pen 12 unit SC BID 30 Days Qty: 7.2 RF: 0 insulin aspart U-100 [Novolog Flexpen U-100 Insulin] 100 unit/mL (3 mL) Insulin Pen See Rx Instructions .ROUTE .COMPLEX Qty: 15 RF: 0 albuterol sulfate 90 mcg/actuation HFA aerosol inhaler 2 puff INH Q6H PRN (Reason: shortness of breath or wheezing) Qty: 6.7 RF: 0 Continued cholecalciferol (vitamin D3) 50 mcg (2,000 unit) capsule 50 mcg PO QAM RF: 0 lidocaine 5 % adhesive patch,medicated 1 patch topical DAILY RF: 0 oxycodone 5 mg tablet 5 mg PO Q6H PRN (Reason: Pain) RF: 0 sodium bicarbonate 650 mg tablet 650 mg PO WM RF: 0 ziprasidone HCl 20 mg capsule 20 mg PO BID RF: 0 omeprazole 20 mg capsule,delayed release(DR/EC) 20 mg PO DAILY RF: 0 metoprolol succinate 50 mg Tablet Extended Release 24 Hr 50 mg PO BID RF: 0 chlorpromazine 100 mg Tablet 150 mg PO HS RF: 0 aspirin [Aspirin Low Dose] 81 mg Tablet,Delayed Release (Dr/Ec) 81 mg PO QAM RF: 0 Trelegy Ellipta 100-62.5-25 mcg blister with device 1 inh INHALATION DAILY RF: 0 acetaminophen 325 mg Tablet 650 mg PO Q6H MDD 3 GMS APAP/24 HOURS PRN (Reason: Fever Or Pain) RF: 0 bisacodyl [Dulcolax (bisacodyl)] 10 mg Suppository 10 mg SD DIRECTED PRN (Reason: Constipation) RF: 0 Fleet Enema 19-7 gram/118 mL Enema 118 ml SD DIRECTED PRN (Reason: Constipation) RF: 0 hydralazine 10 mg Tablet 10 mg PO TID Qty: 30 RF: 0 lactulose 20 gram/30 mL Solution 30 ml PO DAILY Qty: 120 RF: 0 trazodone 50 mg tablet 50 mg PO HS RF: 0 potassium chloride [Klor-Con M10] 10 mEq tablet,ER particles/crystals 10 meq PO Q OTHER DAY RF: 0 warfarin [Coumadin] 3 mg Tablet 3 mg PO HS RF: 0 bumetanide [Bumex] 1 mg Tablet 1 mg PO BID RF: 0 polyethylene glycol 3350 17 gram/dose Powder 17 g PO BID RF: 0 nicotine [Nicoderm] 14 mg/24 hr Patch 24 Hour 1 patch TRANSDERMAL DAILY RF: 0 nicotine [Nicoderm CQ] 7 mg/24 hr Patch 24 Hour 1 patch TRANSDERMAL UD RF: 0 Discontinued insulin aspart U-100 [Novolog U-100 Insulin aspart] 100 unit/mL solution 12 unit SUBCUT WM RF: 0 Lantus Solostar U-100 Insulin 100 unit/mL (3 mL) insulin pen 30 unit SUBCUT QAM RF: 0 Krames/Other Patient Handouts: A1C Admission Data Admit Date/Time: 01/25/21 18:53 Attending Provider: Jatin Simpson Admit Provider: Juan Luis Paul Primary Care Provider: Omega Umaña Other Providers: Jatin Simpson ; Khadar Damian ; James,Antoinette Frost ; Andreas Gross ; Octavio Palma ; Mima Aparicio
[2021-02-08] MEDS: LIDOCAINE 5% 1 PATCH TD SCH (08:09)
[2021-02-08] MEDS: hydrALAZINE 10 MG TAB PO SCH ×3 (08:09→20:53)
[2021-02-08] MEDS: NICOTINE 21 MG/24 HR TDSY TD SCH (08:10)
[2021-02-08] MEDS: CALCIUM ACETATE 667 MG CAP/TAB PO SCH ×3 (08:10→21:01)
[2021-02-08] MEDS: LACTULOSE SYRUP 20 GM/30 ML UDC PO SCH (08:13)
[2021-02-08] MEDS: FLUTICASONE FUROATE 100MCG 14 PUFFS/INHALER INH SCH (08:13)
[2021-02-08] MEDS: ASPIRIN 81 MG ECTAB PO SCH (08:13)
[2021-02-08] MEDS: METOPROLOL SUCC 50MG EXT REL TAB PO SCH ×2 (08:14→20:53)
[2021-02-08] MEDS: PANTOprazole 40 MG TAB PO SCH (08:14)
[2021-02-08] MEDS: UMECLIDINIUM/VILANTEROL 62.5/25MCG 7 PUFFS/INHALER INH SCH (08:15)
[2021-02-08] MEDS: NEPHROCAPS PO SCH (08:15)
[2021-02-08] MEDS: guaiFENesin 600 MG TABCR PO SCH ×2 (08:16→20:53)
[2021-02-08] MEDS: ACETAMINOPHEN 325 MG TAB PO PRN ×2 (08:18→21:03)
[2021-02-08] MEDS: INSULIN GLARGINE SOLOSTAR 100 UNITS/ML 3 ML PEN SC SCH ×2 (08:27→21:08)
[2021-02-08] MEDS: INSULIN ASPART 100 UNITS/ML 3 ML PEN SC SCH ×4 (08:32→21:07)
[2021-02-08] MEDS: POLYETHYLENE (MIRALAX) 17 GM PACK PO SCH ×2 (09:19→21:02)
--- NOTE | 2021-02-08 10:30 | Nephrology Progress Note ---
Date of Service February 08, 2021 Assessment & Plan (1) End stage renal disease: End-stage renal disease, started on hemodialysis during this admission for rapid worsening of renal function and difficult to control volume overload And electrolyte abnormality. ESRD most likely secondary to diabetic nephropathy however never had a kidney biopsy and renal function rapidly worsened over last 6 months. Had tunneled dialysis catheter and started on dialysis of on 02/01/2021. Had significant bleeding from catheter area requiring 3 units of blood transfusion, bleeding stopped after skin stitch around the catheter and pressure dressing, hemoglobin stabilized. Overall clinically stable, blood pressure and volume status acceptable. Had dialysis Sunday, electrolyte acceptable. Hb stable despite nosebleed. -- continue on intermittent hemodialysis TTS, has out pt HD schedule TTS at 10: 30 at [facility] -- Epogen 69557 units during dialysis given on 02/05/2021 -- continue on Nephrocaps and phosphate binder -- left arm nephrology precaution for dialysis access in future -- dose medications for GFR less than 10 will follow Admission and Anticipated Discharge Date Admission Date: January 25, 2021 Subjective Had nosebleed yesterday but Hb stable, stopped now. Denies shortness of breath or chest pain. Blood pressure, electrolyte acceptable. Review of Systems Review of Systems: All systems reviewed & are unremarkable except as noted in Subjective Physical Exam Constitutional: + ill appearing; no acute distress Respiratory: normal respiratory effort; no respiratory distress Auscultation: + rales and + wheezes Cardiovascular: Rate/Rhythm: regular rate and regular rhythm Heart Sounds: normal S1 and normal S2 Extremities: + edema Skin: no rashes, warm and dry Neurologic: awake; no focal motor deficits, not confused and not obtunded Psychiatric: A+Ox3, euthymic affect Results & Data ([facility]) Vital Signs (Past 12 Hours) Vital Signs Temp Pulse Pulse Resp BP Pulse Ox 02/08/21 07:30 37 C 83 18 143/91 H 99 02/08/21 07:29 85 18 98 02/07/21 22:50 36.4 C L 89 16 154/94 H 98 PG Care Time/CCT Total # of Minutes Spent Total Time Spent with Patient: Total time spent is greater than 50% in coordination of care (as documented) at patient's floor/unit and/or counseling patient: Coding Level of Care Code 87302 Subseq Hosp Care Lvl 2 Diagnoses End stage renal disease N18.6
[2021-02-08] MEDS: WARFARIN SOD 3 MG TAB PO SCH (15:36)
[2021-02-08] MEDS ORDERED: WARFARIN SOD 2 MG TAB PO ONE (18:30)
--- NOTE | 2021-02-08 19:00 | Hospitalist Progress Note ---
Date of Service February 08, 2021 Assessment & Plan (1) Acute on chronic renal failure: 60 y/ female with PMHx of atrial fibrillation, anemia, chronic kidney disease, HTN, CVA, type 2 diabetes, heart failure, bipolar disorder, and right BKA admitted for nftwq-pm-deqllpe renal failure. Stable. Ltocz-si-wmiledg renal failure: - Cr 4.21 on admission (baseline 1.8-2.4 with some recent measurements in the 4s) - IJ THC insertion on 02/01 followed by 1st run HD without complication - Continue intermittent dialysis - Sunday, , Sunday. s/p session today on 02/08 - Has outpatient dialysis arranged for 02/10. Anemia: - Stable - In the context of bleeding/clotting around dialysis catheter site - Hb initially dropped from 9.2 (02/01) to 6.1 (02/02); received total of 3 units PRBCs - Vascular surgery placed suture at catheter site on 02/03 - Epogen given 01/27. Epogen and venofer given 02/03. Epogen given 02/05 Type 2 diabetes: - BSGs upper 100s to low 200s on current regimen - Continue Lantus BID and sliding scale insulin. lantus 12 bid. aspart 1:6 carb ratio. CF 20. - BSGs ACHS Chronic obstructive pulmonary disease - worsened physical exam on 02/07 w/ noticeable expiratory wheezes - continue home inhalers - added q6h scheduled albuterol nebulizer treatments. patient reports good relief - continue Mucinex for expectoration Right-sided heart failure; - Chronic appearing, stable at this time - cumulative 9.1L in 12.8L out. wt is 87.1 kg 02/08 stable/decreasing since admission - Goal to maintain net negative fluid balance Chronic hyponatremia: - Asymptomatic throughout this admission, likely secondary to renal failure - 128 at admission, 131 on 02/08, stable - Continue to monitor with BMPs UTI: - UCx with E. coli growth but without symptoms - patient received ceftriaxone followed by cefepime Atrial fibrillation: - NSR since admission, continue home metoprolol - Restarted warfarin at 3 mg. received x 3 days. day 4 (02/07) providing 5 mg - Continue to monitor INR daily. 1.3 as of 02/07. 1.2 as of 02/08. Bipolar disorder, anxiety: - Continue home regimen Diet: Dialysis/renal, carb consistent, with fluid restriction Dispo: tentatively [facility] on 02/09 DVT ppx: warfarin Code status: full code (2) Anemia: (3) End stage renal disease: Pt scheduled for permcath insertion later this morning by Dr Palma. Procedure discussed with pt, she is agreeable. Will schedule outpt for vein mapping and office visit to discuss AVF creation. (4) Dialysis patient: (5) Acute on chronic right-sided congestive heart failure: (6) Hyponatremia: (7) Diabetic nephropathy: (8) COPD (chronic obstructive pulmonary disease): Admission and Anticipated Discharge Date Admission Date: January 25, 2021 Supervising Physician Co-Signing Physician Notes I personally examined the patient and verified all senior points of history and exam, discussed case, and agree with decision making with Dr Galicia Has chair time for outpatient dialysis starting . Able to get dialysis inpatient today. Uncertain if we will be able to get her transported back to SNF today versus tomorrowdiscussed with case management. vitals noted nad heent nc at mmm breathing unlabored no accessory muscles good effort skin no rashes no pallor or icterus ESRD - now on HD. With mild hyperkalemia, and is due for dialysis todaysince outpatient cannot be done until inpatient dialysis today. Hopefully SNF in the very near future, unfortunately it appears today will not be able to get transport arranged. otherwise as above Subjective Intermittent epistaxis all night. Breathing is ok. Eating fine. Sore at catheter site. No other complaints. Review of Systems Review of Systems: All systems reviewed & are unremarkable except as noted in HPI & below Physical Exam Physical Exam: General: Grossly A&O. NAD. Cooperative. HEENT: Atraumatic, normocephalic. Pulm: Some transmitted upper airway sounds. RLW faint slight crackles on i nspiration. Otehrwise clear. No resp distress. Cardiac: RRR, -mrg. 2+ LE edema on LLE Abdominal: Nontender, nondistended, soft. Msk: R knee stump in stockings. L great toe amputated. Integ: R upper chest wall catheter site intact. Results & Data Results & Data ([facility]) Vital Signs (Past 12 Hours) Vital Signs Temp Pulse Pulse Pulse Resp BP BP 02/08/21 18:40 76 145/68 H 02/08/21 18:20 77 154/72 H 02/08/21 18:00 76 143/80 H 02/08/21 17:40 76 139/80 02/08/21 17:20 71 141/83 H 02/08/21 17:00 77 136/77 02/08/21 16:40 77 127/78 02/08/21 16:20 77 148/72 H 02/08/21 16:00 77 140/93 02/08/21 15:42 36.7 C 83 02/08/21 12:44 81 18 02/08/21 07:30 37 C 83 18 143/91 H 02/08/21 07:29 85 18 Pulse Ox 02/08/21 18:40 02/08/21 18:20 02/08/21 18:00 02/08/21 17:40 02/08/21 17:20 02/08/21 17:00 02/08/21 16:40 02/08/21 16:20 02/08/21 16:00 02/08/21 15:42 02/08/21 12:44 98 02/08/21 07:30 99 02/08/21 07:29 98 Resident Activity Tracking Resident Involvement: Resident Care Provided Care Provided: Adult Hospital Medicine (1) Anemia Anemia type: unspecified type Qualified Code(s): D64.9 - Anemia, unspecified (2) Acute on chronic renal failure Acute renal failure type: unspecified Chronic kidney disease stage: unspecified stage Qualified Code(s): N17.9 - Acute kidney failure, unspecified; N18.9 - Chronic kidney disease, unspecified (3) Diabetic nephropathy Diabetes mellitus type: type 2 Qualified Code(s): E11.21 - Type 2 diabetes mellitus with diabetic nephropathy
--- NOTE | 2021-02-08 19:13 | Billing Data ---
Date of Service February 08, 2021 Coding Level of Care Code 80232 Subseq Hosp Care Lvl 1
[2021-02-08] MEDS: chlorproMAZINE HCL 25 MG TAB PO SCH (21:01)
[2021-02-08] MEDS: traZODone HCL 50 MG TAB PO SCH (21:01)
[2021-02-09] MEDS: ALBUTEROL 0.083% NEBU SOLN 3 ML VIAL NEB SCH ×3 (00:02→13:11)
--- NOTE | 2021-02-09 07:17 | Discharge Summary ---
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 Normal renal ultrasound. Renal function continues to worsen and creatinine now up to 4.0-4.2 and GFR around 10 with repeated episodes of hyperkalemia, hyponatremia, and low hemoglobin along with a low blood pressure and low urine output. She was sent in for gentle fluid and monitoring. She was previously admitted and treated for MRSA pneumonia and discharged just over 90 days ago. She has had crackles on her lungs bilaterally at the facility she is coming from. She does not not any trouble breathing at baseline, she does not recall an aspiration event or any coughing with eating. She was eating a sandwich in the room when I saw her and her front tooth had just fallen out, and she may have swallowed the tooth. She has a past medical history of Bipolar, HFpEF, COPD, Anemia, and IDDM. She is taking Chlorpromazine, and Ziprazodone for her Bipolar, this was confirmed with [facility] Admission Exam Per Admitting Provider Constitutional: - lying in bed in NAD Eyes: - sclera icteric ENMT: Ears: no hearing impairment Nose: no external nose abnormality Mouth: no lip abnormality - incisor missing Neck: normal visual inspection Respiratory: coarse crackles heard bilaterally at the bases no wheezing no increased work of breathing able to speak in full sentences Cardiovascular: RRR, no murmur, no edema - 2+ pitting edema in lower extremity Gastrointestinal (Abdomen): Inspection/Auscultation: abdomen normal to inspection - bowel sounds present Skin: + jaundice Neurologic: no focal motor deficits Speech / Cognition: normal speech Psychiatric: A+Ox3, euthymic affect Principal Diagnosis end stage renal disease requiring dialysis Discharge Exam General: A&Ox4. NAD. Cooperative. HEENT: Atraumatic, normocephalic. EOMI Pulm: Upper and middle lobes auscultated. Some transmitted upper airway sounds, otherwise clear. Symmetrical chest rise. No respiratory distress. Exam limited because of patient position. Cardiac: RRR, -mrg. 2+ LLE edema. Abdominal: Nontender, nondistended, soft. Integ: R knee stump nonerythematous. L great toe amputated. Discharge Data Allergies Allergy/AdvReac Type Severity Reaction Status Date / Time shellfish derived Allergy Unknown Unknown Verified 01/25/21 11:09 Consultations 01/25/21 17:45 ED Decision to Admit Stat 01/25/21 20:20 Consult Nephrology Routine Consult Nutrition Stat 01/31/21 13:21 Consult Vascular Surgery Routine Procedures Performed Operation Date: 02/01/21 10:20 Actual Procedures p Perm Cath Insertion, Right Interal Jugular Vein, Ultrasound Localization of Right Internal Jugular Vein, Fluoroscopy for Positioning, Moderate sedation [id number](Right) - Octavio Palma MD Ordered Studies 01/25/21 15:20 CT abd pelvis wo con Stat IMPRESSION: 1. The kidneys are atrophic and without hydronephrosis. 2. Although decompressed around a Melchor catheter, the bladder wall appears markedly thickened and there is pericystic inflammation. Correlate with clinical findings and urinalysis. 3. There is rectosigmoid fecal retention and mild to moderate constipation. 4. Right larger than left pleural effusions with bibasilar consolidation. Correlate clinically for evidence of pneumonia/aspiration pneumonitis. Radiographic follow-up to resolution is recommended. 5. There is a small to moderate volume of nonspecific free fluid in the cul-de-sac. 6. The gallbladder is contracted. Gallbladder wall edema is nonspecific and may be related to volume status or adjacent hepatocellular disease. This is similar to previous and there is no evidence of acute cholecystitis. 7. Body wall edema. 8. Additional findings in full report. 02/01/21 07:17 EV cvc insrt tunnel wo prt/conformal pad former Routine US EV guide vascular access Routine Hospital Course (1) Acute on chronic renal failure: Zahida Garay is a 60 y/o female with PMHx of atrial fibrillation, anemia, chronic kidney disease, HTN, CVA, type 2 diabetes, heart failure, bipolar disorder, and right BKA admitted to [facility] from 01/25/21-02/07/21 for hydla-gm-vfjwhse renal failure requiring new initiation of dialysis. There was bleeding from the R IJ site x several days, but this has resolved after an additional suture was placed. Patient's warfarin was held p reviously and restarted on 02/05/21 at 4pm. INR on 02/08/21 AM is 1.2. Patient did not receive dose of warfarin prior to leaving hospital on 02/09. Give first dose at [facility] on 02/09/21 evening. Todos: - See facility PCP in 1 week. Check BMP in 1 week and in 2 weeks - Dialysis at [facility] on 02/08/21. Plan is for intermittent dialysis TTS. Please arrange follow up with Dr. Yessenia Hollis at [facility] nephrology in 1-2 weeks. - For warfarin, continue 3 mg every evening starting on 02/09/21. Check PT and INR on 02/11/21 and 02/14/21. If INR >3, hold 1 dose of warfarin. If INR <1.5, increase dose to 5mg for 1 day only. Will defer to facility PCP for further changes. INR is 1.2 on 02/09. Goal INR is 2-3. - continue 1200mL daily fluid restriction and dialysis renal (low sodium) and diabetic diet. Please double check that patient is on diabetic AND dialysis diet AND 1200ml fluid restricted. The button for diabetic button was not pressed during discharge. I have called [facility] to correct this. Medication changes - added albuterol inhaler q6h prn for patient's COPD - added prn Mucinex - added phosphate binder and nephrocaps vitamins per nephrology - adjusted insulin regimen. new regimen is 12 units of lantus BID plus fixed aspart regimen. Check BSG ACHS. Give 7u of lantus with breakfast, lunch, and dinner. Use this correction chart. For example, if sugar checked before lunch is 220, you would give 7u+3u=10u total of the aspart. If patient is NPO, skip that meal's aspart. If appetite poor, only give 50% aspart. If prolonged NPO > 8 hours, decrease lantus by 25%. Low dose SSI Blood Sugar 70-150 administer 0 units Blood Sugar 151-200 administer 1 units Blood Sugar 201-250 administer 3 units Blood Sugar 251-300 administer 5 units Blood Sugar 301-350 administer 7 units Blood Sugar 351-400 administer 9 units Blood Sugar >400 administer 11 units and call MD Goal BSG Range: Low 120 mg/dL, High 160 mg/dL BSGs ACHS if eating, q6h if npo If pt is NPO, do NOT hold correction factor insulin without an order Problems this admission Ovsht-bd-nbrbxch renal failure, ESRD: - Cr 4.21 on admission (baseline 1.8-2.4 with some recent measurements in the 4s) - IJ THC insertion on 02/01 followed by 1st run HD without complication - Continue intermittent dialysis - Sunday, , Sunday. first session is 02/10/21 10am - Outpatient dialysis arranged at [place]. Patient will be transported from [facility] on 02/09/21 Anemia: - In the context of bleeding/clotting around dialysis catheter site - Hb initially dropped from 9.2 (02/01) to 6.1 (02/02); received total of 3 units PRBCs - Hgb remains stable at this time - Vascular surgery placed suture at catheter site on 02/03, no further oozing from site. there was an external clot that was removed. no further issues - Epogen and venofer provided by nephro during this admission Type 2 diabetes: - see above - regimen above is modified from hospital regimen (including carb counting). Patient had hyperglycemia on multiple days of admission up to low 300s and required adjustment of regimen. BSG were low to upper 100s on day of dispo. Chronic obstructive pulmonary disease - continue home inhalers - added q6h scheduled albuterol nebulizer treatments. patient reports good relief - continue Mucinex for expectoration Right-sided heart failure; - Chronic appearing, stable at this time - cumulative 9.5L in 13.1L out. wt is 84.6 kg 02/09, stable/decreasing since admission (89.1kg). Patient was ~77kg in October 2020. - Goal to maintain net negative fluid balance Chronic hyponatremia: - Asymptomatic throughout this admission, likely secondary to renal failure - 128 at admission, 134 on day of dispo. stable - Continue to monitor with BMPs UTI: - UCx with E. coli growth but without symptoms - patient received ceftriaxone followed by cefepime. course completed Atrial fibrillation: - NSR since admission, continue home metoprolol - Warfarin was held at admission because of dialysis catheter placement and bleeding from site afterwards - Restarted warfarin on 02/05 Bipolar disorder, anxiety: - Continue home regimen code status during this admission: full (2) Anemia: (3) End stage renal disease: (4) Dialysis patient: (5) Acute on chronic right-sided congestive heart failure: (6) Hyponatremia: (7) Diabetic nephropathy: (8) COPD (chronic obstructive pulmonary disease): Total Time Total Time Spent Total Time Spent (In Minutes): <30 Discharge Plan Discharge Items Patient Disposition: Transfer Inpatient Rehab Fac Reason For Visit: ABNORMAL LAB Discharge Diagnosis: end stage renal disease Activity: Per Instructions section Non-emergency contact: Primary Care Provider and Auto Transport Driver Call non-emergency contact if: you have any medication questions and your sympto ms worsen Follow-up/Referrals: Radha Belcher PA-C [Physician [facility]] - 02/17/21 1:00 pm (Follow-up Ultrasound) Octavio Palma MD [Physician] - 02/23/21 10:00 am (Follow up appointment with ) Omega Umaña [Primary Care Provider] - Diet: Dialysis Renal Fluids: 1200ml (5 cups) Addtl Attending Provider Instructions: Zahida Garay is a 60 y/o female with PMHx of atrial fibrillation, anemia, chronic kidney disease, HTN, CVA, type 2 diabetes, heart failure, bipolar disorder, and right BKA admitted to [facility] from 01/25/21- 02/07/21 for barqs-rr-ctcricp renal failure requiring new initiation of dialysis. There was bleeding from the R IJ site x several days, but this has resolved after an additional suture was placed. Patient's warfarin was held previously and restarted on 02/05/21 at 4pm. INR on 02/08/21 AM is 1.2. Patient did not receive dose of warfarin prior to leaving hospital on 02/09. Give first dose at [facility] on 02/09/21 evening. Todos: - See facility PCP in 1 week. Check BMP in 1 week and in 2 weeks - Dialysis at [facility] on 02/08/21. Plan is for intermittent dialysis TTS. Follow up with Dr. Yessenia Hollis at [facility] nephrology in 1-2 weeks. - For warfarin, continue 3 mg every evening starting on 02/09/21. Check PT and INR on 02/11/21 and 02/14/21. If INR >3, hold 1 dose of warfarin. If INR <1.5, increase dose to 5mg for 1 day only. Will defer to facility PCP for further changes. INR is 1.2 on 02/09. Goal INR is 2-3. - continue 1200mL daily fluid restriction and dialysis renal (low sodium) and diabetic diet. Medication changes - added albuterol inhaler q6h prn for patient's COPD - added prn Mucinex - added phosphate binder and nephrocaps vitamins per nephrology - adjusted insulin regimen. new regimen is 12 units of lantus BID plus fixed aspart regimen. Cueck BSG ACHS. Give 7u of lantus with breakfast, lunch, and dinner. Use this correction chart. For example, if sugar checked before lunch is 220, you would give 7u+3u=10u total of the aspart. If patient is NPO, skip that meal's aspart. If appetite poor, only give 50% aspart. If prolonged NPO > 8 hours, decrease lantus by 25%. Low dose SSI Blood Sugar 70-150 administer 0 units Blood Sugar 151-200 administer 1 units Blood Sugar 201-250 administer 3 units Blood Sugar 251-300 administer 5 units Blood Sugar 301-350 administer 7 units Blood Sugar 351-400 administer 9 units Blood Sugar >400 administer 11 units and call MD Goal BSG Range: Low 120 mg/dL, High 160 mg/dL BSGs ACHS if eating, q6h if npo If pt is NPO, do NOT hold correction factor insulin without an order Problems this admission Xsnac-ek-yjwqnnz renal failure: - Cr 4.21 on admission (baseline 1.8-2.4 with some recent measurements in the 4s) - IJ THC insertion on 02/01 followed by 1st run HD without complication - Continue intermittent dialysis - Sunday, , Sunday. first session is 02/10/21 10am - Outpatient dialysis arranged at [place]. Patient will be transported from [facility] testing ordered Anemia: - In the context of bleeding/clotting around dialysis catheter site - Hb initially dropped from 9.2 (02/01) to 6.1 (02/02); received total of 3 units PRBCs - Hgb remains stable at this time - Vascular surgery placed suture at catheter site on 02/03, no further oozing from site. there was an external clot that was removed. no further issues - Epogen and venofer provided by nephro during this admission Type 2 diabetes: - see above Chronic obstructive pulmonary disease - continue home inhalers - added q6h scheduled albuterol nebulizer treatments. patient reports good relief - continue Mucinex for expectoration Right-sided heart failure; - Chronic appearing, stable at this time - cumulative 8.2L in 12L out. wt is 87.543kg 02/06, stable/decreasing since admission - Goal to maintain net negative fluid balance Chronic hyponatremia: - Asymptomatic throughout this admission, likely secondary to renal failure - 128 at admission - Continue to monitor with BMPs UTI: - UCx with E. coli growth but without symptoms - patient received ceftriaxone followed by cefepime. course completed Atrial fibrillation: - NSR since admission, continue home metoprolol - Warfarin was held at admission because of dialysis catheter placement and bleeding from site afterwards - Restarted warfarin on 02/05 Bipolar disorder, anxiety: - Continue home regimen code status during this admission: full Pending Studies at Discharge: No Stand-Alone Forms: [facility] Skilled Items Patient informed of condition?: Yes DNR: No Discharge Level of Care: Skilled Communicable Disease: No Discharge Prognosis: Stable Lines: None Urinary Catheter: No Medications and DC Order Prescriptions: New Renal Caps 1 mg Capsule 1 cap PO QAM 30 Days Qty: 30 RF: 0 calcium acetate(phosphat bind) 667 mg Capsule 667 mg PO TIDM 30 Days Qty: 90 RF: 0 guaifenesin [Mucinex] 600 mg Tablet Extended Release 12hr 600 mg PO Q12 PRN (Reason: Cough) 30 Days Qty: 30 RF: 0 Lantus Solostar U-100 Insulin 100 unit/mL (3 mL) Insulin Pen 12 unit SC BID 30 Days Qty: 7.2 RF: 0 insulin aspart U-100 [Novolog Flexpen U-100 Insulin] 100 unit/mL (3 mL) Insulin Pen See Rx Instructions .ROUTE .COMPLEX Qty: 15 RF: 0 albuterol sulfate 90 mcg/actuation HFA aerosol inhaler 2 puff INH Q6H PRN (Reason: shortness of breath or wheezing) Qty: 6.7 RF: 0 Continued cholecalciferol (vitamin D3) 50 mcg (2,000 unit) capsule 50 mcg PO QAM RF: 0 lidocaine 5 % adhesive patch,medicated 1 patch topical DAILY RF: 0 oxycodone 5 mg tablet 5 mg PO Q6H PRN (Reason: Pain) RF: 0 sodium bicarbonate 650 mg tablet 650 mg PO WM RF: 0 ziprasidone HCl 20 mg capsule 20 mg PO BID RF: 0 omeprazole 20 mg capsule,delayed release(DR/EC) 20 mg PO DAILY RF: 0 metoprolol succinate 50 mg Tablet Extended Release 24 Hr 50 mg PO BID RF: 0 chlorpromazine 100 mg Tablet 150 mg PO HS RF: 0 aspirin [Aspirin Low Dose] 81 mg Tablet,Delayed Release (Dr/Ec) 81 mg PO QAM RF: 0 Trelegy Ellipta 100-62.5-25 mcg blister with device 1 inh INHALATION DAILY RF: 0 acetaminophen 325 mg Tablet 650 mg PO Q6H MDD 3 GMS APAP/24 HOURS PRN (Reason: Fever Or Pain) RF: 0 bisacodyl [Dulcolax (bisacodyl)] 10 mg Suppository 10 mg MN DIRECTED PRN (Reason: Constipation) RF: 0 Fleet Enema 19-7 gram/118 mL Enema 118 ml MN DIRECTED PRN (Reason: Constipation) RF: 0 hydralazine 10 mg Tablet 10 mg PO TID Qty: 30 RF: 0 lactulose 20 gram/30 mL Solution 30 ml PO DAILY Qty: 120 RF: 0 trazodone 50 mg tablet 50 mg PO HS RF: 0 potassium chloride [Klor-Con M10] 10 mEq tablet,ER particles/crystals 10 meq PO Q OTHER DAY RF: 0 warfarin 3 mg Tablet 3 mg PO HS RF: 0 bumetanide 1 mg Tablet 1 mg PO BID RF: 0 polyethylene glycol 3350 17 gram/dose Powder 17 g PO BID RF: 0 nicotine 14 mg/24 hr Patch 24 Hour 1 patch TRANSDERMAL DAILY RF: 0 nicotine [Nicoderm CQ] 7 mg/24 hr Patch 24 Hour 1 patch TRANSDERMAL UD RF: 0 Discontinued insulin aspart U-100 [Novolog U-100 Insulin aspart] 100 unit/mL solution 12 unit SUBCUT WM RF: 0 Lantus Solostar U-100 Insulin 100 unit/mL (3 mL) insulin pen 30 unit SUBCUT QAM RF: 0 Discharge Orders: Discharge Order (Routine); Ordered 02/09/21 Ordered By: Jatin Guadalupe/Other Patient Handouts: A1C Admission Data Admit Date/Time: 01/25/21 18:53 Attending Provider: Jatin Simpson Admit Provider: Juan Luis Paul Primary Care Provider: Omega Umaña Other Providers: Jatin Simpson ; Khadar Damian ; James,Antoinette Frost ; Mic Gross ; Octavio Palma ; Mima Aparicio Other Interventions: Discharge Summary Assessment (RN) Last Done: 02/09/21 12:29 Supervising Physician Co-Signing Physician Notes I personally examined the patient and verified all senior points of history and exa m, discussed case, and agree with decision making with Dr Galicia finally set up for transport! no new complaints. seems happy to be leaving hospital. vitals noted nad heent nc at mmm breathing unlabored no accessory muscles good effort skin no rashes no pallor or icterus ESRD - now on HD. set up for chair as outpt, transport arranged, stable for SNF otherwise as above Resident Activity Tracking Resident Involvement: Resident Care Provided Care Provided: Adult Hospital Medicine
[2021-02-09] MEDS: ACETAMINOPHEN 325 MG TAB PO PRN (08:11)
[2021-02-09] MEDS: POLYETHYLENE (MIRALAX) 17 GM PACK PO SCH (08:11)
[2021-02-09] MEDS: FLUTICASONE FUROATE 100MCG 14 PUFFS/INHALER INH SCH (08:12)
[2021-02-09] MEDS: oxyCODONE HCL IR 5 MG TAB (IMMEDIATE RELEASE) PO PRN ×2 (08:12→13:21)
[2021-02-09] MEDS: CALCIUM ACETATE 667 MG CAP/TAB PO SCH ×2 (08:13→12:45)
[2021-02-09] MEDS: LACTULOSE SYRUP 20 GM/30 ML UDC PO SCH (08:13)
[2021-02-09] MEDS: hydrALAZINE 10 MG TAB PO SCH ×2 (08:13→12:45)
[2021-02-09] MEDS: PANTOprazole 40 MG TAB PO SCH (08:13)
[2021-02-09] MEDS: METOPROLOL SUCC 50MG EXT REL TAB PO SCH (08:14)
[2021-02-09] MEDS: ASPIRIN 81 MG ECTAB PO SCH (08:14)
[2021-02-09] MEDS: NEPHROCAPS PO SCH (08:15)
[2021-02-09] MEDS: NICOTINE 21 MG/24 HR TDSY TD SCH (08:16)
[2021-02-09] MEDS: guaiFENesin 600 MG TABCR PO SCH (08:16)
[2021-02-09] MEDS: UMECLIDINIUM/VILANTEROL 62.5/25MCG 7 PUFFS/INHALER INH SCH (08:18)
[2021-02-09] MEDS: INSULIN GLARGINE SOLOSTAR 100 UNITS/ML 3 ML PEN SC SCH (08:59)
[2021-02-09] MEDS: INSULIN ASPART 100 UNITS/ML 3 ML PEN SC SCH ×2 (09:00→12:47)
[2021-02-09 09:48] LABS: Basophils # (auto) 0.04 K/uL (0-0.2); Basophils % (auto) 0.8 %; Eosinophils # (auto) 0.17 K/uL (0-0.5); Eosinophils % (auto) 3.4 %; Hematocrit (blood only) 26.5 % (37-47); Hemoglobin 8.1 g/dL (12.0-16.0); Immature Granulocytes # (auto) 0.01 K/uL (0.00-0.02); Immature Granulocytes % (auto) 0.2 %; Lymphocytes # (auto) 0.82 K/uL (1.2-3.4); Lymphocytes % (auto) 16.5 %; Mean Corpuscular Hemoglobin 29.9 pg (25-34); Mean Corpuscular Hgb Conc 30.6 g/dL (32-36); Mean Corpuscular Volume 97.8 fL (80-100); Mean Platelet Volume 8.7 fL (7.4-10.4); Monocytes # (auto) 0.24 K/uL (0.11-0.59); Monocytes % (auto) 4.8 %; Neutrophils # (auto) 3.69 K/uL (1.4-6.5); Neutrophils % (auto) 74.3 %; Platelet Count 232 K/uL (130-400); RDW Coefficient of Variation 18.7 % (11.5-14.5); RDW Standard Deviation 63.7 fL (36.4-46.3); Red Blood Count 2.71 M/uL (4.2-5.4); White Blood Count 4.97 K/uL (4.8-10.8)
[2021-02-09 10:05] LABS: INR 1.2 (0.9-1.1); Prothrombin Time 12.3 Seconds (9.0-12.0)
[2021-02-09 10:23] LABS: BUN Creatinine Ratio 15.6 (10-20); Calcium 8.1 mg/dl (8.5-10.1); Creatinine Clr Calc Pharmacy 32.8 ml/min; Est GFR (African American) 28.2 ml/min; Est GFR (Non-African American) 24.3 ml/min; Potassium 4.4 mmol/L (3.5-5.1)
--- NOTE | 2021-02-09 10:44 | Nephrology Progress Note ---
Date of Service February 09, 2021 Assessment & Plan (1) End stage renal disease: End-stage renal disease, started on hemodialysis during this admission for rapid worsening of renal function and difficult to control volume overload And electrolyte abnormality. ESRD most likely secondary to diabetic nephropathy however never had a kidney biopsy and renal function rapidly worsened over last 6 months. Had tunneled dialysis catheter and started on dialysis of on 02/01/2021. Had significant bleeding from catheter area requiring 3 units of blood transfusion, bleeding stopped after skin stitch around the catheter and pressure dressing, hemoglobin stabilized. Overall clinically stable, blood pressure, electrolyte and volume status acceptable. Hb stable. -- continue on intermittent hemodialysis TTS, has out pt HD schedule TTS at 10:30 at [facility], if DC today, next HD will be at out pt unit. -- Epogen 51116 units during dialysis given on 02/05/2021 -- continue on Nephrocaps and phosphate binder -- left arm nephrology precaution for dialysis access in future -- dose medications for GFR less than 10 will follow Admission and Anticipated Discharge Date Admission Date: January 25, 2021 Subjective Overall feeling well, appetite decent, denies shortness of breath or chest pain. Blood pressure, electrolyte acceptable. Review of Systems Review of Systems: All systems reviewed & are unremarkable except as noted in Subjective Physical Exam Constitutional: + ill appearing; no acute distress Respiratory: normal respiratory effort; no respiratory distress Auscultation: + rales Cardiovascular: Rate/Rhythm: regular rate and regular rhythm Heart Sounds: normal S1 and normal S2 Extremities: + edema Skin: no rashes, warm and dry Neurologic: awake; no focal motor deficits, not confused and not obtunded Psychiatric: A+Ox3, euthymic affect Results & Data ([facility]) Vital Signs (Past 12 Hours) Vital Signs Temp Pulse Pulse Resp BP Pulse Ox 02/09/21 07:36 36.7 C 96 H 20 131/89 96 02/09/21 07:29 96 H 18 96 02/08/21 22:45 36.4 C L 84 16 125/86 96 PG Care Time/CCT Total # of Minutes Spent Total Time Spent with Patient: Total time spent is greater than 50% in coordination of care (as documented) at patient's floor/unit and/or counseling patient: Coding Level of Care Code 53053 Subseq Hosp Care Lvl 2 Diagnoses End stage renal disease N18.6
[2021-02-09] MEDS: LIDOCAINE 5% 1 PATCH TD SCH (11:02)
--- NOTE | 2021-02-09 17:17 | Billing Data ---
Date of Service February 09, 2021 Coding Level of Care Code D/C Day Management <30 mins
== END 2021-02-09 14:03 | DRG 682 ==
LOC: ED 14:11 → 2N 18:53 → SUATTDRO 18:53 → 2N 20:04 → 3W 01-29 18:59

== ENCOUNTER 2021-04-06 12:05 | Inpatient (IN) ==
--- NOTE | 2021-04-06 13:13 | XRay Report ---
XR chest 1V portable CLINICAL HISTORY: Shortness of breath. COMPARISON STUDY: Chest CT October 10, 2020. Chest radiograph April 04, 2021. FINDINGS: Dual lumen right internal jugular central line remains in place. There is no pneumothorax. Moderate to large right pleural effusion has slightly increased since prior examination. There is ass ociated right basilar opacity. Interstitial thickening persists. Cardiomediastinal silhouette is stab le. IMPRESSION: 1. Moderate to large right pleural effusion, slightly increased in size since prior exam. Associated right lung opacity which likely reflects atelectasis. An infectious process could appear similar. 2. Interstitial thickening suggestive of pulmonary edema. ACT 112: Negative or not required by law. Electronically signed by: Scott Madrigal M.D. 04/06/2021 1:11 PM
[2021-04-06 14:32] LABS: INR 1.4 (0.9-1.1); Partial Thromboplastin Ratio 1.4; Partial Thromboplastin Time 36.7 Seconds (21.0-31.0); Prothrombin Time 13.5 Seconds (9.0-12.0)
--- NOTE | 2021-04-06 14:32 | Emergency Department Note ---
Impression & Plan SOB (shortness of breath), Pleural effusion, Abdominal pain, ESRD (end stage renal disease) on dialysis, Pneumonia ED Provider Note INFORMANT: Patient ED PROVIDER(S): Bhavesh Lackey MD CHIEF COMPLAINT: Shortness of breath PLAN: Disposition: Admitted Condition: Good Outpatient prescription management: none Referral: None MEDICAL DECISION MAKING: Patient presented because of shortness of breath. She had an increase in her oxygen demand. The patient also noted some abdominal pain. A work-up was initiated. Blood cultures done. Patient chest x-ray showed a right sided pleural effusion and there was some concern about pneumonia. The patient had a leukocytosis on CBC. End-stage renal disease noted on her chemistry panel. The patient underwent CT imaging of the chest, abdomen and pelvis. No emergent pathology was noted in the abdomen and pelvis. The patient was found to have a pleural effusion as well as findings concerning for pneumonia on chest x-ray. She was given vancomycin and cefepime. Further management will be necessary. Consultation was made with any hospitalist service. Patient was evaluated in the ER admitted for further management. Triage Nursing notes reviewed and agree them. Vital Signs: reviewed and remarkable for no significant abnormalities Differential diagnosis: Reactive airway disease, pneumonia, pneumothorax, COPD, CHF, infections, cardiac ischemia, pulmonary embolism, musculoskeletal, gastrointestinal, as well as other pathologies. Diagnostics interpreted by me: ECG: Twelve-lead ECG reveals normal sinus rhythm. No evidence of ST elevation or depression. No PACs or PVCs. Normal axis. Cardiac Monitoring: Cardiac monitoring ordered by me: The patient was placed on continuous cardiac monitoring and observed. It revealed a normal sinus rhythm at 64 beats per minute without ectopy or evidence of dysrhythmia. Imaging studies: Chest x-ray and CT scan as noted above. I refer you to the EMR for further details. HPI: The patient is a 60 year old female who presents to the Emergency Room with complaints of SOB. This started a few days ago and is worsening. The patient also notes the following associated symptoms, cough, generalized abdominal pain. The patient has found no relieving factors. Current pain is rated as 4/10. Pt on dialysis T/T/R. Staff at facility concerned for PNA. Pt denies LOC, headache, fevers, chills, diaphoresis, visual changes, neck pain, chest pain, nausea, vomiting, back pain, melena, hematochezia, urinary symptoms, numbness, weakness, lymphadenopathy, rash, or other complaints. ROS: See above HPI for pertinent positives & negatives. A total of 10 systems reviewed and were otherwise negative. PAST MEDICAL HISTORY:See Below ,ESRD PAST SURGICAL HISTORY:See Below, Right BKA FAMILY HISTORY:See Below SOCIAL HISTORY:See Below, lives in [place] HOME MEDICATIONS:See Below ALLERGIES:See Below VITALS:See Below PHYSICAL EXAMINATION: GENERAL: Awake, tired-appearing, in no distress HENT: Normocephalic, atraumatic. Oropharynx unremarkable. EYES: Normal conjunctiva. Sclera non-icteric. NECK: Inspection normal. Non-tender. Supple. No nuchal rigidity. FROM. No masses. RESPIRATORY: Diminished on the right. Scattered rales. No wheezes. Normal respiratory effort. CARDIAC: Normal rate. Normal rhythm. No murmurs. No rubs. Extremities warm and well perfused except missing RL leg due to BKA. No JVD. GI: Soft, non-distended. Mild diffuse tenderness to palpation. No rebound or guarding. No masses. RECTAL: Deferred. MUSCULOSKELETAL: Atraumatic. Chest examination reveals no tenderness. The back is symmetrical on inspection without obvious abnormality. There is no CVA tenderness to palpation. No joint edema. LOWER EXTREMITIES: 2+ edema. No discoloration. right BKA NEURO: Normal sensorium. No sensory or motor deficits noted. SKIN: No rash or jaundice noted. Bhavesh Lackey MD Past Med/Surg History Medical History (Updated 04/06/21 @ 22:49 by Bhavesh Lackey MD) Acute alteration in mental status Amputation of left great toe Anemia Benign essential hypertension delivery delivered Chronic hypoxemic respiratory failure Chronic renal insufficiency, stage IV (severe) CVA (cerebral vascular accident) Diabetic nephropathy 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, limited to breakdown of skin Diastolic CHF, acute on chronic End stage renal disease Hypoglycemia Hypoxemia Insomnia Lethargy Pneumonia due to 2019 novel coronavirus Pressure ulcer of BKA stump, stage 2 Shortness of breath Traumatic open wound of left lower leg Volume overload Surgical History Hx of right BKA Social History Smoking Status: Former smoker Tobacco Type: Cigarettes packs per day: 2; Years Smoked: 40; Cigarettes Per Day: 2 PPD; Second Hand Exposure: No; Hx Alcohol Use: No Hx Substance Use: No Preferred Language: Lao Communication Ability: Effective 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: No Beliefs That Will Affect Care: None marital status: Unknown Current Living Situation: Personal Care Facility Current Living Situation Comment: [facility] current occupational status: unemployed and disabled 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 How many Children do You have: 2 Feels Safe at Home: Yes caffeine: Yes Dental Care, Regularly: No Assistive Devices: Oxygen - Continuous Allergies Allergies Allergy/AdvReac Type Severity Reaction Status Date / Time shellfish derived Allergy Unknown Unknown Verified 04/06/21 16:15 Home Meds Home Medications Medication Instructions Recorded Confirmed cholecalciferol (vitamin D3) 50 50 mcg PO QAM 08/03/20 04/06/21 mcg (2,000 unit) capsule lidocaine 5 % topical patch 1 patch TOPICAL DAILY 08/03/20 04/06/21 oxycodone 5 mg tablet 5 mg PO Q6H PRN 08/03/20 04/06/21 sodium bicarbonate 650 mg tablet 650 mg PO WM 08/03/20 04/06/21 ziprasidone HCl 20 mg capsule 20 mg PO BID 08/03/20 04/06/21 acetaminophen 325 mg tablet 650 mg PO Q6H PRN MDD 3 GMS 10/07/20 04/06/21 APAP/24 HOURS aspirin 81 mg tablet,delayed 81 mg PO QAM 10/07/20 04/06/21 release (Aspirin Low Dose) bisacodyl 10 mg rectal suppository 10 mg NV DIRECTED PRN 10/07/20 04/06/21 (Dulcolax (bisacodyl)) fluticasone fur. 100 mcg-umeclid 1 inh INHALATION DAILY 10/07/20 04/06/21 62.5 mcg-vilant 25 mcg inhalat.powder (Trelegy Ellipta) metoprolol succinate 50 mg 50 mg PO BID 10/07/20 04/06/21 tablet,extended release 24 hr sodium phosphates 19 gram-7 118 ml NV DIRECTED PRN 10/07/20 04/06/21 gram/118 mL enema (Fleet Enema) omeprazole 20 mg capsule,delayed 20 mg PO DAILY 01/10/21 04/06/21 release bumetanide 1 mg tablet 1 mg PO .TODAY 01/25/21 04/06/21 nicotine 7 mg/24 hr daily 1 patch TRANSDERMAL UD 01/25/21 04/06/21 transdermal patch (Nicoderm CQ) polyethylene glycol 3350 17 17 g PO BID 01/25/21 04/06/21 gram/dose oral powder potassium chloride 10 mEq 10 meq PO Q OTHER DAY 01/25/21 04/06/21 tablet,extended release(part/cryst) (Klor-Con M) trazodone 50 mg tablet 50 mg PO HS tab 01/25/21 04/06/21 albuterol sulfate 90 mcg/actuation 2 puff INHALATION Q6H PRN 04/06/21 04/06/21 aerosol inhaler (Proventil HFA) apixaban 2.5 mg tablet (Eliquis) 2.5 mg PO BID 04/06/21 04/06/21 calcium acetate(phosphat bind) 667 667 mg PO TIDM 04/06/21 04/06/21 mg capsule clonazepam 0.5 mg tablet 0.5 mg PO BID 04/06/21 04/06/21 dicyclomine 20 mg tablet 20 mg PO TID 04/06/21 04/06/21 guaifenesin 600 mg tablet, 600 mg PO BID 04/06/21 04/06/21 extended release 12 hr (Mucinex) Previous Rx's Medication Instructions Recorded hydralazine 10 mg tablet 10 mg PO TID #30 tab 10/19/20 lactulose 20 gram/30 mL oral 30 ml PO DAILY #120 ml 10/19/20 solution insulin aspart U-100 100 unit/mL See Rx Instructions .ROUTE 02/07/21 (3 mL) subcutaneous pen (Novolog .COMPLEX #15 ml Flexpen U-100 Insulin aspart) Results & Data (ED) Vital Signs Vital Signs - 24 hr 04/06/21 12:11 04/06/21 12:12 04/06/21 12:18 Temperature 36.9 C Temperature Source Oral Pulse Rate 74 71 Pulse Rate from SpO2 Sensor 71 Respiratory Rate 23 16 Respiratory Effort / Characteristics Spontaneous Blood Pressure 121/96 121/96 Blood Pressure Mean 104 104 Pulse Oximetry 100 100 100 Oxygen Delivery Method Nasal Cannula Nasal Cannula Oxygen Flow Rate 4 6 Sepsis Recent Fever Within 48 Hours No Sepsis New/Unexplained Change in Mental Status No Sepsis Action Taken by Nursing No Action Required Oxygen Flow Rate - Titration 4 Pulse Oximetry Post Tiitration 100 04/06/21 12:19 04/06/21 12:30 04/06/21 12:46 Temperature Temperature Source Pulse Rate 72 71 Pulse Rate from SpO2 Sensor 72 Respiratory Rate 22 16 Respiratory Effort / Characteristics Spontaneous Blood Pressure 118/82 Blood Pressure Mean 94 Pulse Oximetry 100 100 Oxygen Delivery Method Nasal Cannula Nasal Cannula Nasal Cannula Oxygen Flow Rate 4 4 4 Sepsis Recent Fever Within 48 Hours Sepsis New/Unexplained Change in Mental Status Sepsis Action Taken by Nursing Oxygen Flow Rate - Titration Pulse Oximetry Post Tiitration 04/06/21 12:47 04/06/21 13:00 04/06/21 13:30 Temperature Temperature Source Pulse Rate 71 71 Pulse Rate from SpO2 Sensor 73 74 Respiratory Rate 16 23 19 Respiratory Effort / Characteristics Non-Labored Spontaneous Blood Pressure 115/77 112/75 Blood Pressure Mean 89 87 Pulse Oximetry 100 100 96 Oxygen Delivery Method Nasal Cannula Nasal Cannula Oxygen Flow Rate 4 4 Sepsis Recent Fever Within 48 Hours Sepsis New/Unexplained Change in Mental Status Sepsis Action Taken by Nursing Oxygen Flow Rate - Titration Pulse Oximetry Post Tiitration 04/06/21 14:00 04/06/21 14:30 04/06/21 15:10 Temperature Temperature Source Pulse Rate 71 71 70 Pulse Rate from SpO2 Sensor 71 Respiratory Rate 19 21 12 Respiratory Effort / Characteristics Blood Pressure 105/84 122/87 103/79 Blood Pressure Mean 91 98 87 Pulse Oximetry 100 98 100 Oxygen Delivery Method Oxygen Flow Rate Sepsis Recent Fever Within 48 Hours Sepsis New/Unexplained Change in Mental Status Sepsis Action Taken by Nursing Oxygen Flow Rate - Titration Pulse Oximetry Post Tiitration 04/06/21 15:30 04/06/21 16:00 04/06/21 16:30 Temperature Temperature Source Pulse Rate 69 69 69 Pulse Rate from SpO2 Sensor 69 69 Respiratory Rate 22 20 17 Respiratory Effort / Characteristics Blood Pressure 111/81 121/81 102/75 Blood Pressure Mean 91 94 84 Pulse Oximetry 100 100 Oxygen Delivery Method Nasal Cannula Oxygen Flow Rate 4 Sepsis Recent Fever Within 48 Hours Sepsis New/Unexplained Change in Mental Status Sepsis Action Taken by Nursing Oxygen Flow Rate - Titration Pulse Oximetry Post Tiitration 04/06/21 17:00 04/06/21 17:30 04/06/21 18:00 Temperature Temperature Source Pulse Rate 69 68 67 Pulse Rate from SpO2 Sensor Respiratory Rate 17 16 20 Respiratory Effort / Characteristics Blood Pressure 121/83 118/77 115/81 Blood Pressure Mean 95 90 92 Pulse Oximetry 98 96 99 Oxygen Delivery Method Nasal Cannula Nasal Cannula Nasal Cannula Oxygen Flow Rate 4 4 6 Sepsis Recent Fever Within 48 Hours Sepsis New/Unexplained Change in Mental Status Sepsis Action Taken by Nursing Oxygen Flow Rate - Titration Pulse Oximetry Post Tiitration 04/06/21 18:30 04/06/21 19:00 04/06/21 19:30 Temperature Temperature Source Pulse Rate 69 68 66 Pulse Rate from SpO2 Sensor Respiratory Rate 17 16 16 Respiratory Effort / Characteristics Blood Pressure 107/70 112/69 103/69 Blood Pressure Mean 82 83 80 Pulse Oximetry 99 99 Oxygen Delivery Method Nasal Cannula Nasal Cannula Oxygen Flow Rate 6 4 Sepsis Recent Fever Within 48 Hours Sepsis New/Unexplained Change in Mental Status Sepsis Action Taken by Nursing Oxygen Flow Rate - Titration Pulse Oximetry Post Tiitration 04/06/21 20:00 04/06/21 20:30 04/06/21 21:00 Temperature Temperature Source Pulse Rate 65 66 63 Pulse Rate from SpO2 Sensor Respiratory Rate 16 17 14 Respiratory Effort / Characteristics Blood Pressure 100/66 109/73 102/68 Blood Pressure Mean 77 85 79 Pulse Oximetry 98 97 97 Oxygen Delivery Method Nasal Cannula Nasal Cannula Oxygen Flow Rate 4 4 4 Sepsis Recent Fever Within 48 Hours Sepsis New/Unexplained Change in Mental Status Sepsis Action Taken by Nursing Oxygen Flow Rate - Titration Pulse Oximetry Post Tiitration 04/06/21 21:30 04/06/21 22:00 04/06/21 22:30 Temperature Temperature Source Pulse Rate 65 65 64 Pulse Rate from SpO2 Sensor 64 Respiratory Rate 16 20 18 Respiratory Effort / Characteristics Blood Pressure 108/72 109/73 105/69 Blood Pressure Mean 84 85 81 Pulse Oximetry 96 97 100 Oxygen Delivery Method Nasal Cannula Oxygen Flow Rate 4 4 4 Sepsis Recent Fever Within 48 Hours Sepsis New/Unexplained Change in Mental Status Sepsis Action Taken by Nursing Oxygen Flow Rate - Titration Pulse Oximetry Post Tiitration Laboratory Data Result diagrams: 04/06/21 14:13 04/06/21 14:13 Lab Results 04/06/21 04/06/21 04/06/21 Range/Units 12:35 12:35 14:13 WBC 14.26 H (4.8-10.8) K/uL RBC 2.87 L (4.2-5.4) M/uL Hgb 8.6 L (12.0-16.0) g/dL Hct 29.0 L (37-47) % MCV 101.0 H (80-100) fL MCH 30.0 (25-34) pg MCHC 29.7 L (32-36) g/dL RDW Std Deviation 67.4 H (36.4-46.3) fL RDW Coeff of Esa 18.1 H (11.5-14.5) % Plt Count 267 (130-400) K/uL MPV 9.5 (7.4-10.4) fL Immature Gran % (Auto) 0.2 % Neut % (Auto) 88.8 % Lymph % (Auto) 2.5 % [place] % (Auto) 8.4 % Eos % (Auto) 0.0 % Baso % (Auto) 0.1 % Neut # (Auto) 12.66 H (1.4-6.5) K/uL Lymph # (Auto) 0.36 L (1.2-3.4) K/uL [place] # (Auto) 1.20 H (0.11-0.59) K/uL Eos # (Auto) 0.00 (0-0.5) K/uL Baso # (Auto) 0.01 (0-0.2) K/uL Immature Gran # (Auto) 0.03 H (0.00-0.02) K/uL PT (9.0-12.0) Seconds INR (0.9-1.1) APTT (21.0-31.0) Seconds PTT Ratio Sodium (136-145) mmol/L Potassium (3.5-5.1) mmol/L Chloride (98-107) mmol/L Carbon Dioxide (21-32) mmol/L Anion Gap (3-11) BUN (7-18) mg/dl Creatinine (0.6-1.2) mg/dl Est Cr Clr Drug Dosing ml/min Est GFR ( Amer) ml/min Est GFR (Non-Af Amer) ml/min BUN/Creatinine Ratio (10-20) Glucose (70-99) mg/dl Lactate (0.4-2.0) mmol/L Calcium (8.5-10.1) mg/dl Magnesium (1.8-2.4) mg/dl Total Bilirubin (0.2-1) mg/dl AST (15-37) U/L ALT (12-78) U/L Alkaline Phosphatase (45-117) U/L Troponin I (0-0.045) ng/ml NT-Pro-B Natriuret Pep (0-900) pg/ml Total Protein (6.4-8.2) gm/dl Albumin (3.4-5.0) gm/dl Globulin (2.5-4.0) gm/dl Albumin/Globulin Ratio (0.9-2) COVID-19 Eval Order Covid19 at [facility] SARS-CoV-2 (PCR) NEGATIVE (Negative) 04/06/21 04/06/21 04/06/21 Range/Units 14:13 14:13 14:13 WBC (4.8-10.8) K/uL RBC (4.2-5.4) M/uL Hgb (12.0-16.0) g/dL Hct (37-47) % MCV (80-100) fL MCH (25-34) pg MCHC (32-36) g/dL RDW Std Deviation (36.4-46.3) fL RDW Coeff of Esa (11.5-14.5) % Plt Count (130-400) K/uL MPV (7.4-10.4) fL Immature Gran % (Auto) % Neut % (Auto) % Lymph % (Auto) % [place] % (Auto) % Eos % (Auto) % Baso % (Auto) % Neut # (Auto) (1.4-6.5) K/uL Lymph # (Auto) (1.2-3.4) K/uL [place] # (Auto) (0.11-0.59) K/uL Eos # (Auto) (0-0.5) K/uL Baso # (Auto) (0-0.2) K/uL Immature Gran # (Auto) (0.00-0.02) K/uL PT 13.5 H (9.0-12.0) Seconds INR 1.4 H (0.9-1.1) APTT 36.7 H (21.0-31.0) Seconds PTT Ratio 1.4 Sodium 132 L (136-145) mmol/L Potassium 4.6 (3.5-5.1) mmol/L Chloride 97 L (98-107) mmol/L Carbon Dioxide 31 (21-32) mmol/L Anion Gap 4.0 (3-11) BUN 23 H (7-18) mg/dl Creatinine 3.27 H (0.6-1.2) mg/dl Est Cr Clr Drug Dosing 21.8 ml/min Est GFR ( Amer) 17.2 ml/min Est GFR (Non-Af Amer) 14.8 ml/min BUN/Creatinine Ratio 7.0 L (10-20) Glucose 101 H (70-99) mg/dl Lactate 1.0 (0.4-2.0) mmol/L Calcium 8.5 (8.5-10.1) mg/dl Magnesium 2.6 H (1.8-2.4) mg/dl Total Bilirubin 0.7 (0.2-1) mg/dl AST 15 (15-37) U/L ALT 15 (12-78) U/L Alkaline Phosphatase 106 (45-117) U/L Troponin I < 0.015 (0-0.045) ng/ml NT-Pro-B Natriuret Pep > 75976 H (0-900) pg/ml Total Protein 8.1 (6.4-8.2) gm/dl Albumin 2.5 L (3.4-5.0) gm/dl Globulin 5.6 H (2.5-4.0) gm/dl Albumin/Globulin Ratio 0.4 L (0.9-2) COVID-19 Eval Order SARS-CoV-2 (PCR) (Negative) Administered Medications Discontinued Medications Vancomycin HCl 1,750 mg/ (Sodium Chloride) 535 mls @ 200 mls/hr IV NOW ONE Stop: 04/06/21 19:44 Last Infusion: 04/06/21 20:40 Dose: 0 mls/hr Documented by: [id number] Admin: 04/06/21 17:58 Dose: 200 mls/hr Documented by: [id number] Cefepime HCl (Maxipime) 2,000 mg in 20 mls @ 5 mls/min IV NOW STA; Protocol Stop: 04/06/21 17:07 Last Admin: 04/06/21 17:22 Dose: 5 mls/min Documented by: [id number] Imaging Data Radiologist's Impression: Chest X-Ray 04/06/21 12:40 XR chest 1V portable CLINICAL HISTORY: Shortness of breath. COMPARISON STUDY: Chest CT October 10, 2020. Chest radiograph April 04, 2021. FINDINGS: Dual lumen right internal jugular central line remains in place. There is no pneumothorax. Moderate to large right pleural effusion has slightly increased since prior examination. There is associated right basilar opacity. Interstitial thickening persists. Cardiomediastinal silhouette is stable. IMPRESSION: 1. Moderate to large right pleural effusion, slightly increased in size since prior exam. Associated right lung opacity which likely reflects atelectasis. An infectious process could appear similar. 2. Interstitial thickening suggestive of pulmonary edema. ACT 112: Negative or not required by law. Electronically signed by: Scott Madrigal M.D. 04/06/2021 1:11 PM Abdomen/Pelvis CT 04/06/21 14:27 CT SCAN OF THE CHEST, ABDOMEN, AND PELVIS WITHOUT IV CONTRAST CLINICAL HISTORY: Dyspnea. Pleural effusion. Generalized abdominal pain. End- stage renal disease. COMPARISON STUDY: Chest CT dated 10/10/2020. Abdominal CT dated 03/16/2021. TECHNIQUE: Unenhanced CT scan of the chest, abdomen, and pelvis was performed from the thoracic inlet to the proximal femora. Images are reviewed in the axial, sagittal, and coronal planes. IV contrast was not administered for this examination. Note that the examination is suboptimal without IV contrast. There is also motion artifact. A dose lowering technique was utilized adhering to the principles of ALARA. CT DOSE: 1540.54 mGy.cm FINDINGS: CHEST: Thyroid: Atrophic and heterogeneous. Thoracic aorta: The thoracic aorta is normal in caliber and demonstrates bovine variant arch anatomy. Heart: A right internal jugular central venous catheter is in place. The heart is mildly enlarged noting a small pericardial effusion. The coronary arteries and mitral annulus are densely calcified. There is diminished attenuation of the cardiac blood pool as compared to the myocardium suggesting anemia. Lungs and pleural spaces: Evaluation of the lung parenchyma is degraded by motion artifact. There is a moderate to large right pleural effusion with dense consolidation of the right lower lung. The right upper lobe remains partially aerated. Trace pleural effusion is seen on the left. Diffuse intralobular septal thickening is noted. Patchy air airspace opacities are seen throughout the left lung. There are scattered calcified granulomas. Mediastinum: There are numerous mildly enlarged mediastinal lymph nodes which measure up to 10 mm in short axis. [place]: Not well assessed without IV contrast. Axillae: There is no axillary lymphadenopathy. Bony thorax: The skeletal structures are heterogeneously osteopenic. Advanced arthritic changes seen in the shoulders. Spondylotic change is noted throughout the thoracic spine. No lytic or blastic lesions are identified. ABDOMEN AND PELVIS: Liver: The contrast-enhanced liver is normal in size, contour, and attenuation. There is no intrahepatic biliary ductal dilatation. Gallbladder: Unremarkable. Spleen: Normal in size and attenuation. Pancreas: The unenhanced pancreas is atrophic and grossly unremarkable. Adrenal glands: Unremarkable. Kidneys: The unenhanced kidneys are atrophic and without hydronephrosis. There are numerous renovascular calcifications seen bilaterally. No definite renal calculi are identified. Numerous cortical hypodensities likely represent cysts but cannot be definitively characterized. Abdominal vasculature: The abdominal aorta is normal in course and caliber noting advanced atherosclerotic calcification. Bowel: There is no bowel obstruction. Moderate fecal retention is noted throughout the colon The appendix is well-visualized and normal. Peritoneum: There is trace perihepatic and a small amount of pelvic ascites. No intraperitoneal free air is identified. Lymphadenopathy: There are numerous mildly enlarged retroperitoneal lymph nodes which measure up to 10 mm in short axis. Pelvic viscera: The bladder wall is thickened and there is pericystic inflammation. Uterine calcifications likely represent fibroids. No adnexal lesion is seen. Skeletal structures: The skeletal structures are heterogeneously osteopenic. There is mild to moderate lumbosacral spondylosis. No lytic or blastic lesions are seen. Soft tissues: There is body wall edema. IMPRESSION: 1. Moderate to large right pleural effusion with associated consolidation of the right lower lung. This likely resents a combination of atelectasis and pneumonia. Clinical correlation will be required. 2. There is trace left pleural effusion. 3. Cardiomegaly with intralobular septal thickening. Correlate clinically for evidence of fluid overload/congestive failure. 4. Patchy airspace opacities are seen throughout the aerated right upper lobe and the left lung. This could represent an infectious/inflammatory pneumonitis and/or pulmonary edema. Clinical correlation will be required. 5. Findings suggest cystitis. Correlate with clinical findings and urinalysis. 6. Trace perihepatic and small volume of pelvic ascites. 7. Anasarca of the body wall. 8. Moderate fecal retention is noted throughout the colon. 9. Mildly enlarged mediastinal and retroperitoneal lymph nodes are nonspecific and may be reactive. These are similar to recent prior studies. 10. Additional findings as above. ACT 112: Negative or not required by law. Electronically signed by: Phil Alfaro M.D. 04/06/2021 3:[address] 04/06/21 14:43 CT SCAN OF THE CHEST, ABDOMEN, AND PELVIS WITHOUT IV CONTRAST CLINICAL HISTORY: Dyspnea. Pleural effusion. Generalized abdominal pain. End-sta ge renal disease. COMPARISON STUDY: Chest CT dated 10/10/2020. Abdominal CT dated 03/16/2021. TECHNIQUE: Unenhanced CT scan of the chest, abdomen, and pelvis was performed from the thoracic inlet to the proximal femora. Images are reviewed in the axi al, sagittal, and coronal planes. IV contrast was not administered for this examination. Note that the examination is suboptimal without IV contrast. There is also motion artifact. A dose lowering technique was utilized adhering to the principles of ALARA. CT DOSE: 1540.54 mGy.cm FINDINGS: CHEST: Thyroid: Atrophic and heterogeneous. Thoracic aorta: The thoracic aorta is normal in caliber and demonstrates bovine variant arch anatomy. Heart: A right internal jugular central venous catheter is in place. The heart is mildly enlarged noting a small pericardial effusion. The coronary arteries and mitral annulus are densely calcified. There is diminished attenuation of the cardiac blood pool as compared to the myocardium suggesting anemia. Lungs and pleural spaces: Evaluation of the lung parenchyma is degraded by motion artifact. There is a moderate to large right pleural effusion with dense consolidation of the right lower lung. The right upper lobe remains partially aerated. Trace pleural effusion is seen on the left. Diffuse intralobular septal thickening is noted. Patchy air airspace opacities are seen throughout the left lung. There are scattered calcified granulomas. Mediastinum: There are numerous mildly enlarged mediastinal lymph nodes which measure up to 10 mm in short axis. [place]: Not well assessed without IV contrast. Axillae: There is no axillary lymphadenopathy. Bony thorax: The skeletal structures are heterogeneously osteopenic. Advanced arthritic changes seen in the shoulders. Spondylotic change is noted throughout the thoracic spine. No lytic or blastic lesions are identified. ABDOMEN AND PELVIS: Liver: The contrast-enhanced liver is normal in size, contour, and attenuation. There is no intrahepatic biliary ductal dilatation. Gallbladder: Unremarkable. Spleen: Normal in size and attenuation. Pancreas: The unenhanced pancreas is atrophic and grossly unremarkable. Adrenal glands: Unremarkable. Kidneys: The unenhanced kidneys are atrophic and without hydronephrosis. There are numerous renovascular calcifications seen bilaterally. No definite renal calculi are identified. Numerous cortical hypodensities likely represent cysts but cannot be definitively characterized. Abdominal vasculature: The abdominal aorta is normal in course and caliber noting advanced atherosclerotic calcification. Bowel: There is no bowel obstruction. Moderate fecal retention is noted throughout the colon The appendix is well-visualized and normal. Peritoneum: There is trace perihepatic and a small amount of pelvic ascites. No intraperitoneal free air is identified. Lymphadenopathy: There are numerous mildly enlarged retroperitoneal lymph nodes which measure up to 10 mm in short axis. Pelvic viscera: The bladder wall is thickened and there is pericystic inflam mation. Uterine calcifications likely represent fibroids. No adnexal lesion is seen. Skeletal structures: The skeletal structures are heterogeneously osteopenic. There is mild to moderate lumbosacral spondylosis. No lytic or blastic lesions are seen. Soft tissues: There is body wall edema. IMPRESSION: 1. Moderate to large right pleural effusion with associated consolidation of the right lower lung. This likely resents a combination of atelectasis and pneumonia. Clinical correlation will be required. 2. There is trace left pleural effusion. 3. Cardiomegaly with intralobular septal thickening. Correlate clinically for evidence of fluid overload/congestive failure. 4. Patchy airspace opacities are seen throughout the aerated right upper lobe and the left lung. This could represent an infectious/inflammatory pneumonitis and/or pulmonary edema. Clinical correlation will be required. 5. Findings suggest cystitis. Correlate with clinical findings and urinalysis. 6. Trace perihepatic and small volume of pelvic ascites. 7. Anasarca of the body wall. 8. Moderate fecal retention is noted throughout the colon. 9. Mildly enlarged mediastinal and retroperitoneal lymph nodes are nonspecific and may be reactive. These are similar to recent prior studies. 10. Additional findings as above. ACT 112: Negative or not required by law. Electronically signed by: Phil Alfaro M.D. 04/06/2021 3:25 PM Discharge Plan Visit Data Chief Complaint: Shortness of Breath/Dyspnea Stated Complaint: SOB ED Provider: Bhavesh Lackey Discharge Problem: SOB (shortness of breath), Pleural effusion, Abdominal pain, ESRD (end stage renal disease) on dialysis, Pneumonia Discharge Instructions Interventions: ED Discharge Assessment Last Done: 04/06/21 22:43 Forms Stand Alone Forms: My [facility] Prescriptions Prescriptions: No Action cholecalciferol (vitamin D3) 50 mcg (2,000 unit) capsule 50 mcg PO QAM RF: 0 lidocaine 5 % adhesive patch,medicated 1 patch topical DAILY RF: 0 oxycodone 5 mg tablet 5 mg PO Q6H PRN (Reason: Pain) RF: 0 sodium bicarbonate 650 mg tablet 650 mg PO WM RF: 0 ziprasidone HCl 20 mg capsule 20 mg PO BID RF: 0 omeprazole 20 mg capsule,delayed release(DR/EC) 20 mg PO DAILY RF: 0 metoprolol succinate 50 mg Tablet Extended Release 24 Hr 50 mg PO BID RF: 0 aspirin [Aspirin Low Dose] 81 mg Tablet,Delayed Release (Dr/Ec) 81 mg PO QAM RF: 0 Trelegy Ellipta 100-62.5-25 mcg blister with device 1 inh INHALATION DAILY RF: 0 acetaminophen 325 mg Tablet 650 mg PO Q6H MDD 3 GMS APAP/24 HOURS PRN (Reason: Fever Or Pain) RF: 0 bisacodyl [Dulcolax (bisacodyl)] 10 mg Suppository 10 mg NV DIRECTED PRN (Reason: Constipation) RF: 0 Fleet Enema 19-7 gram/118 mL Enema 118 ml NV DIRECTED PRN (Reason: Constipation) RF: 0 hydralazine 10 mg Tablet 10 mg PO TID Qty: 30 RF: 0 lactulose 20 gram/30 mL Solution 30 ml PO DAILY Qty: 120 RF: 0 trazodone 50 mg tablet 50 mg PO HS RF: 0 potassium chloride [Klor-Con M10] 10 mEq tablet,ER particles/crystals 10 meq PO Q OTHER DAY RF: 0 bumetanide 1 mg Tablet 1 mg PO .TODAY RF: 0 polyethylene glycol 3350 17 gram/dose Powder 17 g PO BID RF: 0 nicotine [Nicoderm CQ] 7 mg/24 hr Patch 24 Hour 1 patch TRANSDERMAL UD RF: 0 insulin aspart U-100 [Novolog Flexpen U-100 Insulin] 100 unit/mL (3 mL) Insulin Pen See Rx Instructions .ROUTE .COMPLEX Qty: 15 RF: 0 clonazepam 0.5 mg tablet 0.5 mg PO BID RF: 0 dicyclomine 20 mg Tablet 20 mg PO TID RF: 0 calcium acetate(phosphat bind) [PhosLo] 667 mg Capsule 667 mg PO TIDM RF: 0 Eliquis 2.5 mg tablet 2.5 mg PO BID RF: 0 albuterol sulfate [Proventil HFA] 90 mcg/actuation Hfa Aerosol Inhaler 2 puff INHALATION Q6H PRN (Reason: Shortness Of Breath Or Wheezing) RF: 0 guaifenesin [Mucinex] 600 mg Tablet Extended Release 12hr 600 mg PO BID RF: 0 Referrals Referrals: Omega Umaña [Primary Care Provider] -
[2021-04-06 14:39] LABS: Albumin Level 2.5 gm/dl (3.4-5.0); Aspartate Aminotransferase 15 U/L (15-37); Blood Urea Nitrogen 23 mg/dl (7-18); Calcium 8.5 mg/dl (8.5-10.1); Carbon Dioxide 31 mmol/L (21-32); Chloride 97 mmol/L (98-107); Creatinine Clr Calc Pharmacy 21.8 ml/min; Est GFR (African American) 17.2 ml/min; Est GFR (Non-African American) 14.8 ml/min; Glucose 101 mg/dl (70-99); Magnesium 2.6 mg/dl (1.8-2.4); Potassium 4.6 mmol/L (3.5-5.1); Sodium 132 mmol/L (136-145)
[2021-04-06 14:44] LABS: Alanine Aminotransferase 15 U/L (12-78); Albumin Globulin Ratio 0.4 (0.9-2); Alkaline Phosphatase 106 U/L (45-117); Bilirubin,Total 0.7 mg/dl (0.2-1); Globulin 5.6 gm/dl (2.5-4.0); NT Pro B Type Natriuretic Pept > 35000 pg/ml (0-900); Total Protein 8.1 gm/dl (6.4-8.2); Troponin I < 0.015 ng/ml (0-0.045)
[2021-04-06 14:55] LABS: Hemoglobin 8.6 g/dL (12.0-16.0); Mean Corpuscular Hgb Conc 29.7 g/dL (32-36); Mean Platelet Volume 9.5 fL (7.4-10.4); Platelet Count 267 K/uL (130-400); RDW Coefficient of Variation 18.1 % (11.5-14.5); RDW Standard Deviation 67.4 fL (36.4-46.3); Red Blood Count 2.87 M/uL (4.2-5.4); White Blood Count 14.26 K/uL (4.8-10.8)
[2021-04-06 14:57] LABS: Basophils # (auto) 0.01 K/uL (0-0.2); Basophils % (auto) 0.1 %; Immature Granulocytes # (auto) 0.03 K/uL (0.00-0.02); Immature Granulocytes % (auto) 0.2 %; Lymphocytes # (auto) 0.36 K/uL (1.2-3.4); Lymphocytes % (auto) 2.5 %; Monocytes % (auto) 8.4 %; Neutrophils # (auto) 12.66 K/uL (1.4-6.5); Neutrophils % (auto) 88.8 %
--- NOTE | 2021-04-06 15:26 | CT Scan Report ---
CT SCAN OF THE CHEST, ABDOMEN, AND PELVIS WITHOUT IV CONTRAST CLINICAL HISTORY: Dyspnea. Pleural effusion. Generalized abdominal pain. End-stage renal disease. COMPARISON STUDY: Chest CT dated 10/10/2020. Abdominal CT dated 03/16/2021. TECHNIQUE: Unenhanced CT scan of the chest, abdomen, and pelvis was performed from the thoracic inlet to the proximal femora. Images are reviewed in the axial, sagittal, and coronal planes. IV contrast was not administered for this examination. Note that the examination is suboptimal without IV contras t. There is also motion artifact. A dose lowering technique was utilized adhering to the principles of ALARA. CT DOSE: 1540.54 mGy.cm FINDINGS: CHEST: Thyroid: Atrophic and heterogeneous. Thoracic aorta: The thoracic aorta is normal in caliber and demonstrates bovine variant arch anatomy. Heart: A right internal jugular central venous catheter is in place. The heart is mildly enlarged not ing a small pericardial effusion. The coronary arteries and mitral annulus are densely calcified. The re is diminished attenuation of the cardiac blood pool as compared to the myocardium suggesting anemi a. Lungs and pleural spaces: Evaluation of the lung parenchyma is degraded by motion artifact. There is a moderate to large right pleural effusion with dense consolidation of the right lower lung. The righ t upper lobe remains partially aerated. Trace pleural effusion is seen on the left. Diffuse intralobu lar septal thickening is noted. Patchy air airspace opacities are seen throughout the left lung. Ther e are scattered calcified granulomas. Mediastinum: There are numerous mildly enlarged mediastinal lymph nodes which measure up to 10 mm in short axis. Willow: Not well assessed without IV contrast. Axillae: There is no axillary lymphadenopathy. Bony thorax: The skeletal structures are heterogeneously osteopenic. Advanced arthritic changes seen in the shoulders. Spondylotic change is noted throughout the thoracic spine. No lytic or blastic lesi ons are identified. ABDOMEN AND PELVIS: Liver: The contrast-enhanced liver is normal in size, contour, and attenuation. There is no intrahepa tic biliary ductal dilatation. Gallbladder: Unremarkable. Spleen: Normal in size and attenuation. Pancreas: The unenhanced pancreas is atrophic and grossly unremarkable. Adrenal glands: Unremarkable. Kidneys: The unenhanced kidneys are atrophic and without hydronephrosis. There are numerous renovascu lar calcifications seen bilaterally. No definite renal calculi are identified. Numerous cortical hypo densities likely represent cysts but cannot be definitively characterized. Abdominal vasculature: The abdominal aorta is normal in course and caliber noting advanced atheroscle rotic calcification. Bowel: There is no bowel obstruction. Moderate fecal retention is noted throughout the colon The appe ndix is well-visualized and normal. Peritoneum: There is trace perihepatic and a small amount of pelvic ascites. No intraperitoneal free air is identified. Lymphadenopathy: There are numerous mildly enlarged retroperitoneal lymph nodes which measure up to 1 0 mm in short axis. Pelvic viscera: The bladder wall is thickened and there is pericystic inflammation. Uterine calcifica tions likely represent fibroids. No adnexal lesion is seen. Skeletal structures: The skeletal structures are heterogeneously osteopenic. There is mild to moderat e lumbosacral spondylosis. No lytic or blastic lesions are seen. Soft tissues: There is body wall edema. IMPRESSION: 1. Moderate to large right pleural effusion with associated consolidation of the right lower lung. Th is likely resents a combination of atelectasis and pneumonia. Clinical correlation will be required. 2. There is trace left pleural effusion. 3. Cardiomegaly with intralobular septal thickening. Correlate clinically for evidence of fluid overl oad/congestive failure. 4. Patchy airspace opacities are seen throughout the aerated right upper lobe and the left lung. This could represent an infectious/inflammatory pneumonitis and/or pulmonary edema. Clinical correlation will be required. 5. Findings suggest cystitis. Correlate with clinical findings and urinalysis. 6. Trace perihepatic and small volume of pelvic ascites. 7. Anasarca of the body wall. 8. Moderate fecal retention is noted throughout the colon. 9. Mildly enlarged mediastinal and retroperitoneal lymph nodes are nonspecific and may be reactive. T hese are similar to recent prior studies. 10. Additional findings as above. ACT 112: Negative or not required by law. Electronically signed by: Phil Alfaro M.D. 04/06/2021 3:25 PM
[2021-04-06] MEDS ORDERED: CEFEPIME 2,000 MG/20 ML VIAL IV STA (17:04)
[2021-04-06] MEDS ORDERED: VANCOMYCIN HCL 1,750 MG in SODIUM CHLORIDE 0.9% 500 ML IV ONE (17:04)
[2021-04-06] MEDS ORDERED: VANCOMYCIN CONSULT ACTIVE PRN ×2 (17:04→23:37)
--- NOTE | 2021-04-06 21:54 | History & Physical Report ---
Date of Service April 06, 2021 Assessment & Plan (1) Pleural effusion: Plan: Patient is a 60 year old female with PMHx ESRD on dialysis, diastolic CHF, COPD, DM2, who presents with chief complaint of worsening shortness of breath. SOB secondary to R pleural effusion and PNA -CTA chest noting moderate to large R pleural effusion with associated consolidation of RLL in addition to cardiomegaly and intralobular septal thickening concerning for overload. -Continue Zosyn and Vancomycin -Procalcitonin ordered -Pulmonology consulted for possible thoracentesis Suspect UTI -CT ab/pelv with findings suggestive of cystitis, UA with epithelial cells concerning for contamination. -Difficult to correlate symptoms due to patients awareness and lack of urination -Coverage with Zosyn and Vancomycin as above Acute on chronic HFpEF -In acute exacerbation, BNP >35k -Unfortunately minimal urine output -Nephro consulted for dialysis -Echo in AM Paroxysmal AFib -Will hold tonights eliquis dose for possible thoracentesis -Continue Toprol 50mg BID Hypertension -With relatively soft pressures systolic in mid 100's -Will hold Hydralazine at this time -Continue Metoprolol -Hold ASA COPD -Continue Mucinex -Continue Anoro Ellipta -Continue Arnuity Ellipta ESRD on Dialysis -Dialysis T, Th, Sat -Nephrology consulted -Continue Phoslo -Nephrocaps QD Bipolar disorder -Continue home Ziprasidone -Continue home Trazodone Dispo: M/S Telemetry FEN: Dialysis renal, DM2 diet, fluid restrict 1800ml DVT: hold eliquis Code: Full (2) Diastolic CHF, acute on chronic: (3) ESRD (end stage renal disease) on dialysis: (4) Pneumonia: (5) SOB (shortness of breath): History of Present Illness Chief Complaint: SOB Primary Care Provider: Omega Umaña Patient is a 60 year old female with PMHx ESRD on dialysis, diastolic CHF, COPD, DM2, who presents with chief complaint of worsening shortness of breath. Patient is unfortunately a very poor historian. Patient notes that she does get her dialysis on T, Th, Sat and that she typically feels better afterwards, but has been having worsening shortness of breath. She saw her hoistman on 04/04/21 for lethargy and at that time was asked to go to the ED for evaluation, however, the patient felt that her lethargy was due to her Klonopin use rather than her breathing. Patient notes that her primary symptoms at this time do include shortness of breath, worse with laying flat and with exertion. She denies any chest pain, chest pressure, abdominal pain, dysuria (notes very minimal urine), headache, visual changes, fever, chills. Med Hx: ESRD on dialysis, CHF, COPD, DM2 Soc Hx: Quit smoking in June, but 2 ppd since age of 16 prior. Allergies Allergy/AdvReac Type Severity Reaction Status Date / Time shellfish derived Allergy Unknown Unknown Verified 04/06/21 16:15 Home Medications Medication Instructions Recorded Confirmed Type cholecalciferol (vitamin D3) 50 50 mcg PO QAM 08/03/20 04/06/21 History mcg (2,000 unit) capsule lidocaine 5 % topical patch 1 patch TOPICAL DAILY 08/03/20 04/06/21 History oxycodone 5 mg tablet 5 mg PO Q6H PRN 08/03/20 04/06/21 History sodium bicarbonate 650 mg tablet 650 mg PO WM 08/03/20 04/06/21 History ziprasidone HCl 20 mg capsule 20 mg PO BID 08/03/20 04/06/21 History acetaminophen 325 mg tablet 650 mg PO Q6H PRN MDD 3 GMS 10/07/20 04/06/21 History APAP/24 HOURS aspirin 81 mg tablet,delayed 81 mg PO QAM 10/07/20 04/06/21 History release (Aspirin Low Dose) bisacodyl 10 mg rectal suppository 10 mg ND DIRECTED PRN 10/07/20 04/06/21 History (Dulcolax (bisacodyl)) fluticasone fur. 100 mcg-umeclid 1 inh INHALATION DAILY 10/07/20 04/06/21 History 62.5 mcg-vilant 25 mcg inhalat.powder (Trelegy Ellipta) metoprolol succinate 50 mg 50 mg PO BID 10/07/20 04/06/21 History tablet,extended release 24 hr sodium phosphates 19 gram-7 118 ml ND DIRECTED PRN 10/07/20 04/06/21 History gram/118 mL enema (Fleet Enema) hydralazine 10 mg tablet 10 mg PO TID #30 tab 10/19/20 04/06/21 Rx lactulose 20 gram/30 mL oral 30 ml PO DAILY #120 ml 10/19/20 04/06/21 Rx solution omeprazole 20 mg capsule,delayed 20 mg PO DAILY 01/10/21 04/06/21 History release bumetanide 1 mg tablet 1 mg PO .TODAY 01/25/21 04/06/21 History nicotine 7 mg/24 hr daily 1 patch TRANSDERMAL UD 01/25/21 04/06/21 History transdermal patch (Nicoderm CQ) polyethylene glycol 3350 17 17 g PO BID 01/25/21 04/06/21 History gram/dose oral powder potassium chloride 10 mEq 10 meq PO Q OTHER DAY 01/25/21 04/06/21 History tablet,extended release(part/cryst) (Klor-Con M) trazodone 50 mg tablet 50 mg PO HS tab 01/25/21 04/06/21 History insulin aspart U-100 100 unit/mL See Rx Instructions .ROUTE 02/07/21 04/06/21 Rx (3 mL) subcutaneous pen (Novolog .COMPLEX #15 ml Flexpen U-100 Insulin aspart) albuterol sulfate 90 mcg/actuation 2 puff INHALATION Q6H PRN 04/06/21 04/06/21 History aerosol inhaler (Proventil HFA) apixaban 2.5 mg tablet (Eliquis) 2.5 mg PO BID 04/06/21 04/06/21 History calcium acetate(phosphat bind) 667 667 mg PO TIDM 04/06/21 04/06/21 History mg capsule clonazepam 0.5 mg tablet 0.5 mg PO BID 04/06/21 04/06/21 History dicyclomine 20 mg tablet 20 mg PO TID 04/06/21 04/06/21 History guaifenesin 600 mg tablet, 600 mg PO BID 04/06/21 04/06/21 History extended release 12 hr (Mucinex) Past Med/Surg History Medical History (Updated 04/07/21 @ 14:44 by Benita Calles MD) Acute alteration in mental status Amputation of left great toe Anemia Benign essential hypertension delivery delivered Chronic hypoxemic respiratory failure Chronic renal insufficiency, stage IV (severe) CVA (cerebral vascular accident) Diabetic nephropathy 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, limited to breakdown of skin Diastolic CHF, acute on chronic End stage renal disease Hypoglycemia Hypoxemia Insomnia Lethargy Pneumonia due to 2019 novel coronavirus Pressure ulcer of BKA stump, stage 2 Shortness of breath Traumatic open wound of left lower leg Volume overload Surgical History Hx of right BKA Social History Smoking Status: Former smoker Tobacco Type: Cigarettes packs per day: 2; Years Smoked: 40; Cigarettes Per Day: 2 packs; Smoking End Date: June 2020; Second Hand Exposure: Yes; Do You Dip or Chew Tobacco: No; Tobacco Cessation Education Requested by Patient: Yes Hx Alcohol Use: Yes Alcohol type: beer, wine and hard liquor Hx Substance Use: No Preferred Language: [place] Communication Ability: Effective Pan Puller Required: No Beliefs That Will Affect Care: None marital status: Unknown Current Living Situation: Personal Care Facility Current Living Situation Comment: [facility] current occupational status: unemployed and disabled 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 How many Children do You have: 2 Feels Safe at Home: Yes Safety Concerns: Feels Safe At This Time caffeine: Yes Dental Care, Regularly: No Assistive Devices: Mechanical Lift Assistive Devices Comment: Glasses at home Review of Systems Review of Systems: ros as above Physical Exam Constitutional: well developed, well nourished and + disheveled; not in distress Eyes: PERRL, conjunctivae normal, anicteric sclerae normal visual shepherd by confrontation ENMT: external ear and nose normal, oropharynx normal Neck: trachea midline, no thyromegaly Respiratory: normal respiratory effort (on 3L NC ); does not use accessory muscles Auscultation: + diminished lung sounds (on R lower lobe) and + rales (b/l ) Cardiovascular: Rate/Rhythm: regular rate and regular rhythm Heart Sounds: no murmur Gastrointestinal (Abdomen): normal bowel sounds, soft, nontender, no hepatosplenomegaly Musculoskeletal: R BTK amputation Skin: no rashes, warm and dry Neurologic: PERRL, EOMI, accommodation nl, no face palsy, no dysarthria Psychiatric: Orientation: alert, oriented to person and cooperative Results & Data Results & Data ([facility]) Vital Signs (Past 12 Hours) Vital Signs Temp Pulse Resp BP Pulse Ox 04/06/21 20:30 66 17 109/73 97 04/06/21 20:00 65 16 100/66 98 04/06/21 19:30 66 16 103/69 99 04/06/21 19:00 68 16 112/69 04/06/21 18:30 69 17 107/70 99 04/06/21 18:00 67 20 115/81 99 04/06/21 17:30 68 16 118/77 96 04/06/21 17:00 69 17 121/83 98 04/06/21 16:30 69 17 102/75 04/06/21 16:00 69 20 121/81 100 04/06/21 15:30 69 22 111/81 100 04/06/21 15:10 70 12 103/79 100 04/06/21 14:30 71 21 122/87 98 04/06/21 14:00 71 19 105/84 100 04/06/21 13:30 71 19 112/75 96 04/06/21 13:00 71 23 115/77 100 04/06/21 12:47 16 100 04/06/21 12:46 71 16 100 04/06/21 12:30 72 22 118/82 100 04/06/21 12:18 100 04/06/21 12:12 71 16 121/96 100 04/06/21 12:11 36.9 C 74 23 121/96 100 Supervising Physician Co-Signing Physician Notes Attending addendum: I have physically seen this patient, have supervised the medical residents activities, and agree with the H&P unless as otherwise noted. Assessment and Plan: Right-sided parapneumonic effusion- Vancomycin IV and Zosyn IV per pharmacokinetic monitoring Duonebs every 4 hours while awake and every 2 hours when necessary. Consult his hoistman Cystitis/UTI- Noted on CT Follow urine culture sensitivity Cover with the above antibiotics ESRD on HD- Sunday, and Sunday Consult nephrology Continue usual meds PAF/acute on chronic HFpEF- The patient will be admitted to telemetry for serial cardiac enzymes, serial EKG's, cardiac rhythm monitoring and a 2-D echocardiogram with Dopplers. Continue metoprolol with hold parameters Hold aspirin Remaining orders and notations as noted Resident Activity Tracking Resident Involvement: Resident Care Provided Care Provided: Adult [facility]
[2021-04-06] MEDS ORDERED: PIPERACILL/TAZOBAC CONSULT ACTIVE PRN (23:37)
[2021-04-06] MEDS ORDERED: VANCOMYCIN HCL 1,250 MG in SODIUM CHLORIDE 0.9% 500 ML IV SCH (23:37)
[2021-04-06] MEDS ORDERED: ALBUTEROL HFA 8 GM INHALER INH PRN (23:37)
[2021-04-07] MEDS ORDERED: PIPERACILLIN/TAZOBACTAM 3.375 GM in DEXTROSE 5% 100 ML IV STA (00:03)
[2021-04-07 01:14] LABS: Folate (Folic Acid) > 20.00 ng/ml (>5.38); Vitamin B12 1284 pg/ml (193-986)
[2021-04-07] MEDS: guaiFENesin 600 MG TABCR PO SCH ×3 (01:14→20:53)
[2021-04-07] MEDS: METOPROLOL SUCC 50MG EXT REL TAB PO SCH ×3 (01:14→20:52)
[2021-04-07] MEDS ORDERED: GLUCAGON FOR INJ 1 MG VIAL SQ PRN (03:52)
[2021-04-07] MEDS ORDERED: GLUCOSE 40% GEL 15 GM TUBE PO PRN (03:52)
[2021-04-07] MEDS ORDERED: CARBOHYDRATES FOR HYPOGLYCEMIA PO PRN (03:52)
[2021-04-07] MEDS ORDERED: GLUCOSE 10 TABS/TUBE PO PRN (03:52)
[2021-04-07] MEDS ORDERED: DEXTROSE 50% 50 ML SYRINGE IV PRN (03:52)
--- NOTE | 2021-04-07 03:59 | Pharmacy Report ---
Pharmacy Abx Initial Consult - Date of Service April 07, 2021 - Pharmacy Dosing Scope Date of Consult: 04/06/21 Consultation requested by: Dr. Arauz Pharmacy is consulted to initiate Vancomycin and Zosyn IV dosing therapy, order appropriate labs and adjust drug dose/frequency. - Subjective The patient is a 60 year old F admitted on 04/06/21 22:11. - Objective Height: 5 ft 9 in Weight: 85 kg Vital Signs (Past 12hrs): Vital Signs Temp Pulse Pulse Resp BP BP Pulse Ox 04/07/21 01:03 65 04/07/21 00:16 36.6 C 68 18 107/74 98 04/06/21 23:56 36.6 C 68 18 107/74 98 04/06/21 22:30 64 18 105/69 100 04/06/21 22:00 65 20 109/73 97 04/06/21 21:30 65 16 108/72 96 04/06/21 21:00 63 14 102/68 97 04/06/21 20:30 66 17 109/73 97 04/06/21 20:00 65 16 100/66 98 04/06/21 19:30 66 16 103/69 99 04/06/21 19:00 68 16 112/69 04/06/21 18:30 69 17 107/70 99 04/06/21 18:00 67 20 115/81 99 04/06/21 17:30 68 16 118/77 96 04/06/21 17:00 69 17 121/83 98 04/06/21 16:30 69 17 102/75 04/06/21 16:00 69 20 121/81 100 Lab Results (24hrs): Laboratory Tests (24 Hours) 04/07/21 04/06/21 04/06/21 00:04 14:13 14:13 WBC 14.26 H Neut # (Auto) 12.66 H Creatinine 3.27 H Est Cr Clr Drug Dosing 21.8 Procalcitonin 1.59 H Micro Results: 04/06/21 14:21 Aerobic Blood Culture - Pending Blood Anaerobic Blood Culture - Pending 04/06/21 14:13 Aerobic Blood Culture - Pending Blood Anaerobic Blood Culture - Pending - Risk Factors for Resistance * Hospitalization for 48 hours or more within the past 90 days * 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 * Afebrile. Leukocytosis of 14k. Procalcitonin 1.59. * Culture pending. Plan Vancomycin and Zosyn for treatment of pneumonia Vancomycin IV * Loading Dose: 1750 mg (20 mg/kg) IV x 1 * No maintenance dose will be ordered at this time given patient is ESRD on HD. * Will order a random level with AM labs on 04/07/21 given this would be patient's next scheduled HD day. * Will dose per level Piperacillin/tazobactam * 3.375 g bolus administered over 30 minutes, then 3.375 g IV extended infusion every 12 hours for ESRD on HD Pharmacy will continue to follow and will adjust dose/frequency as necessary. Thank you.
--- NOTE | 2021-04-07 05:59 | Electrocardiogram Report ---
Test Reason : Blood Pressure : / mmHG Vent. Rate : 072 BPM Atrial Rate : 072 BPM P-R Int : 158 ms QRS Dur : 084 ms QT Int : 430 ms P-R-T Axes : -06 031 027 degrees QTc Int : 470 ms Normal sinus rhythm Normal ECG When compared with ECG of 25-JAN-2021 14:27, No significant change was found Confirmed by Rohan Fischer ([id number]) on 04/07/2021 5:59:33 AM Referred By: Confirmed By:Rohan Fischer
[2021-04-07] MEDS ORDERED: PIPERACILLIN/TAZOBACTAM 3.375 GM in DEXTROSE 5% 100 ML IV SCH (06:00)
[2021-04-07] MEDS: ONDANSETRON INJ 2 MG/ML 2 ML VIAL IV PRN ×2 (06:53→21:49)
[2021-04-07 07:23] LABS: Basophils # (auto) 0.02 K/uL (0-0.2); Basophils % (auto) 0.2 %; Eosinophils # (auto) 0.12 K/uL (0-0.5); Eosinophils % (auto) 1.2 %; Hematocrit (blood only) 29.6 % (37-47); Hemoglobin 8.7 g/dL (12.0-16.0); Immature Granulocytes # (auto) 0.04 K/uL (0.00-0.02); Immature Granulocytes % (auto) 0.4 %; Lymphocytes % (auto) 3.8 %; Mean Corpuscular Hemoglobin 29.3 pg (25-34); Mean Corpuscular Hgb Conc 29.4 g/dL (32-36); Mean Corpuscular Volume 99.7 fL (80-100); Mean Platelet Volume 9.3 fL (7.4-10.4); Monocytes # (auto) 0.65 K/uL (0.11-0.59); Monocytes % (auto) 6.2 %; Neutrophils % (auto) 88.2 %; Platelet Count 214 K/uL (130-400); RDW Standard Deviation 65.8 fL (36.4-46.3); Red Blood Count 2.97 M/uL (4.2-5.4); White Blood Count 10.43 K/uL (4.8-10.8)
--- NOTE | 2021-04-07 07:24 | XRay Report ---
XR chest 1V portable CLINICAL HISTORY: Shortness of breath. COMPARISON STUDY: Chest radiograph and chest CT April 06, 2021. FINDINGS: Dual lumen right internal jugular catheter remains in place. There is a moderate to large r ight pleural effusion. There is no pneumothorax. Cardiomegaly is again noted. Persistent interstitial thickening is present. IMPRESSION: Persistent pulmonary edema with a moderate to large right pleural effusion. ACT 112: Negative or not required by law. Electronically signed by: Scott Madrigal M.D. 04/07/2021 7:23 AM
[2021-04-07 07:34] LABS: INR 1.3 (0.9-1.1); Partial Thromboplastin Ratio 1.3; Partial Thromboplastin Time 33.6 Seconds (21.0-31.0); Prothrombin Time 13.2 Seconds (9.0-12.0)
[2021-04-07 08:02] LABS: Albumin Level 2.2 gm/dl (3.4-5.0); BUN Creatinine Ratio 8.6 (10-20); Calcium 8.3 mg/dl (8.5-10.1); Creatinine Clr Calc Pharmacy 19.6 ml/min; Est GFR (African American) 15.1 ml/min; Magnesium 2.2 mg/dl (1.8-2.4); Potassium 4.4 mmol/L (3.5-5.1)
[2021-04-07 08:05] LABS: Albumin Globulin Ratio 0.4 (0.9-2); Bilirubin,Total 0.7 mg/dl (0.2-1); Globulin 4.9 gm/dl (2.5-4.0); Phosphorus 4.4 mg/dl (2.5-4.9); Total Protein 7.1 gm/dl (6.4-8.2)
[2021-04-07] MEDS: LACTULOSE SYRUP 20 GM/30 ML UDC PO SCH (08:12)
[2021-04-07] MEDS: CALCIUM ACETATE 667 MG CAP/TAB PO SCH ×3 (08:12→17:28)
[2021-04-07] MEDS: UMECLIDINIUM/VILANTEROL 62.5/25MCG 7 PUFFS/INHALER INH SCH (08:12)
[2021-04-07] MEDS: PANTOprazole 40 MG TAB PO SCH (08:12)
[2021-04-07] MEDS: NEPHROCAPS PO SCH (08:12)
[2021-04-07] MEDS: FLUTICASONE FUROATE 100MCG 14 PUFFS/INHALER INH SCH (08:13)
[2021-04-07] MEDS: POLYETHYLENE (MIRALAX) 17 GM PACK PO SCH (08:13)
[2021-04-07] MEDS: INSULIN GLARGINE SOLOSTAR 100 UNITS/ML 3 ML PEN SC SCH (08:16)
[2021-04-07] MEDS: INSULIN ASPART 100 UNITS/ML 3 ML PEN SC SCH ×4 (08:17→21:07)
[2021-04-07] MEDS ORDERED: NON-FORMULARY MEDICATION (Fluticasone-Umeclidin-Vilanter [Trelegy Ellipta] 100-62.5-25 mcg INH SCH (09:00)
[2021-04-07] MEDS ORDERED: ACETAMINOPHEN 325 MG TAB PO PRN (09:03)
[2021-04-07] MEDS ORDERED: HEPARIN SOD (PORCINE) 1000 UNIT/ML IV ONE (09:35)
[2021-04-07] MEDS ORDERED: SODIUM CHLORIDE 0.9% 1000ML 1,000 ML IV PRN (09:35)
[2021-04-07] MEDS ORDERED: EPOETIN ALFA 10,000 UNITS/ML VIAL IV ONE (09:35)
--- NOTE | 2021-04-07 09:42 | Nephrology Consultation ---
Date of Consultation April 07, 2021 Assessment & Plan (1) ESRD (end stage renal disease) on dialysis: * ESRD on HD TTS at [facility] * Will provide HD today and attempt 2 L UF. Orders placed in EMR and HD RN notified (2) Pleural effusion: * Possible parapneumonic effusion * COVID negative * Await Pulmonolgy evaluation for possible thoracentesis * Currently on dose adjusted IV Zosyn therapy (3) Chronic anemia: * Will provide JAYNE with HD History of Present Illness Reason for Consultation: ESRD on HD Attending Physician: Jatin Simpson DO History of Present Illness Ms. Garay is a 60 year old white female who is seen at the request of the [facility] Hospitalist service to provide inpatient HD. Medical records in the EMR were reviewed today and are summarized as follows: Ms. Garay has AODM complicated by PVD s/p R BKA. She progressed to ESRD 01/24 and currently dialyzed TTS at [facility]. Her vascular access remains a R IJ THC. Ms. Garay's medical history is also significant for recurrent pneumonia, COVID + 08/26, COPD, longstanding tobacco use, CVA w/ L sided weakness, MR/TR, atrial fibrillation, h/o cocaine use, and bipolar disorder. She is a resident of [facility]. Ms. Garay presented to dialysis yesterday with complaints of SOB. She remained symptomatic following treatment and was transported to the [facility] where CXR and chest CT revealed a moderate to large R pleural effusion and consolidation of the RLL. Allergies Allergy/AdvReac Type Severity Reaction Status Date / Time shellfish derived Allergy Unknown Unknown Verified 04/06/21 16:15 Home Medications Medication Instructions Recorded Confirmed Type cholecalciferol (vitamin D3) 50 50 mcg PO QAM 08/03/20 04/06/21 History mcg (2,000 unit) capsule lidocaine 5 % topical patch 1 patch TOPICAL DAILY 08/03/20 04/06/21 History oxycodone 5 mg tablet 5 mg PO Q6H PRN 08/03/20 04/06/21 History sodium bicarbonate 650 mg tablet 650 mg PO WM 08/03/20 04/06/21 History ziprasidone HCl 20 mg capsule 20 mg PO BID 08/03/20 04/06/21 History acetaminophen 325 mg tablet 650 mg PO Q6H PRN MDD 3 GMS 10/07/20 04/06/21 History APAP/24 HOURS aspirin 81 mg tablet,delayed 81 mg PO QAM 10/07/20 04/06/21 History release (Aspirin Low Dose) bisacodyl 10 mg rectal suppository 10 mg [place] DIRECTED PRN 10/07/20 04/06/21 History (Dulcolax (bisacodyl)) fluticasone fur. 100 mcg-umeclid 1 inh INHALATION DAILY 10/07/20 04/06/21 History 62.5 mcg-vilant 25 mcg inhalat.powder (Trelegy Ellipta) metoprolol succinate 50 mg 50 mg PO BID 10/07/20 04/06/21 History tablet,extended release 24 hr sodium phosphates 19 gram-7 118 ml NH DIRECTED PRN 10/07/20 04/06/21 History gram/118 mL enema (Fleet Enema) hydralazine 10 mg tablet 10 mg PO TID #30 tab 10/19/20 04/06/21 Rx lactulose 20 gram/30 mL oral 30 ml PO DAILY #120 ml 10/19/20 04/06/21 Rx solution omeprazole 20 mg capsule,delayed 20 mg PO DAILY 01/10/21 04/06/21 History release bumetanide 1 mg tablet 1 mg PO .TODAY 01/25/21 04/06/21 History nicotine 7 mg/24 hr daily 1 patch TRANSDERMAL UD 01/25/21 04/06/21 History transdermal patch (Nicoderm CQ) polyethylene glycol 3350 17 17 g PO BID 01/25/21 04/06/21 History gram/dose oral powder potassium chloride 10 mEq 10 meq PO Q OTHER DAY 01/25/21 04/06/21 History tablet,extended release(part/cryst) (Klor-Con M) trazodone 50 mg tablet 50 mg PO HS tab 01/25/21 04/06/21 History insulin aspart U-100 100 unit/mL See Rx Instructions .ROUTE 02/07/21 04/06/21 Rx (3 mL) subcutaneous pen (Novolog .COMPLEX #15 ml Flexpen U-100 Insulin aspart) albuterol sulfate 90 mcg/actuation 2 puff INHALATION Q6H PRN 04/06/21 04/06/21 History aerosol inhaler (Proventil HFA) apixaban 2.5 mg tablet (Eliquis) 2.5 mg PO BID 04/06/21 04/06/21 History calcium acetate(phosphat bind) 667 667 mg PO TIDM 04/06/21 04/06/21 History mg capsule clonazepam 0.5 mg tablet 0.5 mg PO BID 04/06/21 04/06/21 History dicyclomine 20 mg tablet 20 mg PO TID 04/06/21 04/06/21 History guaifenesin 600 mg tablet, 600 mg PO BID 04/06/21 04/06/21 History extended release 12 hr (Mucinex) Patient History Medical History (Updated 04/06/21 @ 22:49 by Bhavesh Lackey MD) Acute alteration in mental status Amputation of left great toe Anemia Benign essential hypertension delivery delivered Chronic hypoxemic respiratory failure Chronic renal insufficiency, stage IV (severe) CVA (cerebral vascular accident) Diabetic nephropathy 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, limited to breakdown of skin Diastolic CHF, acute on chronic End stage renal disease Hypoglycemia Hypoxemia Insomnia Lethargy Pneumonia due to 2019 novel coronavirus Pressure ulcer of BKA stump, stage 2 Shortness of breath Traumatic open wound of left lower leg Volume overload Surgical History Hx of right BKA Social History Smoking Status: Former smoker Tobacco Type: Cigarettes packs per day: 2; Years Smoked: 40; Cigarettes Per Day: 2 packs; Smoking End Date: June 2020; Second Hand Exposure: Yes; Do You Dip or Chew Tobacco: No; Tobacco Cessation Education Requested by Patient: Yes Hx Alcohol Use: Yes Alcohol type: beer, wine and hard liquor Hx Substance Use: No Preferred Language: [place] Island[place] Communication Ability: Effective Television Inspector Required: No Beliefs That Will Affect Care: None marital status: Unknown Current Living Situation: Personal Care Facility Current Living Situation Comment: [facility] current occupational status: unemployed and disabled 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 How many Children do You have: 2 Feels Safe at Home: Yes Safety Concerns: Feels Safe At This Time caffeine: Yes Dental Care, Regularly: No Assistive Devices: Glasses, Mechanical Lift, Oxygen - Continuous and Wheelchair Assistive Devices Comment: Glasses at home Review of Systems Constitutional: + weakness; no fever Eyes: no problem reported Ear, Nose, Mouth, Throat: no problem reported Respiratory: + dyspnea; no cough Cardiovascular: + edema; no chest pain and no palpitations Gastrointestinal: no abdominal pain, no nausea, no vomiting and no diarrhea/loose stools Musculoskeletal: no back pain Integumentary: no rash Neurologic: no falls, no dizziness and no confusion Physical Exam Constitutional: + ill appearing Eyes: PERRL, conjunctivae normal, anicteric sclerae ENMT: external ear and nose normal, oropharynx normal Neck: trachea midline, no thyromegaly R IJ THC with clean, dry dressing Respiratory: normal respiratory effort Auscultation: + breath sounds absent (R base) Cardiovascular: RRR, no murmur, no edema Gastrointestinal (Abdomen): normal bowel sounds, soft, nontender, no hepatosplenomegaly Musculoskeletal: R BKA Neurologic: awake; not confused Results & Data ([facility]) Vital Signs (Past 12 Hours) Vital Signs Temp Pulse Pulse Resp BP BP Pulse Ox 04/07/21 07:00 36.8 C 68 68 18 100/67 96 04/07/21 04:04 36.8 C 72 18 117/68 98 04/07/21 01:03 65 04/07/21 00:16 36.6 C 68 18 107/74 98 04/06/21 23:56 36.6 C 68 18 107/74 98 04/06/21 22:30 64 18 105/69 100 04/06/21 22:00 65 20 109/73 97 Laboratory Results Laboratory Tests 04/06/21 04/07/21 04/07/21 12:35 07:09 07:09 WBC 10.43 Hgb 8.7 L Hct 29.6 L Plt Count 214 Sodium 131 L Potassium 4.4 Chloride 95 L Carbon Dioxide 28 BUN 31 H Creatinine 3.64 H D Glucose 248 H Calcium 8.3 L AST 9 L ALT 12 SARS-CoV-2 (PCR) NEGATIVE PG Care Time/CCT Total # of Minutes Spent Total Time Spent with Patient: Total time spent is greater than 50% in coordination of care (as documented) at patient's floor/unit and/or counseling patient: Coding Level of Care Code 72338 Inpt Consult Level 5 Diagnoses ESRD (end stage renal disease) on dialysis N18.6; Z99.2 Pleural effusion J90 Chronic anemia D64.9
--- NOTE | 2021-04-07 11:22 | Pharmacy Report ---
Pharmacy Abx Dose Short Note - Date of Service April 07, 2021 - Assessment & Plan Assessment 60 year old F started on Vancomycin and Zosyn for possible pneumonia * PMHx significant for ESRD on HD TTS, COPD, T2DM, R BKA. * Afebrile. WBC trending down 14k --> 10k. Procalcitonin 1.59. * BC pending. * MRSA nasal swab Positive Plan Vancomycin and Zosyn for treatment of pneumonia Vancomycin IV * Loading Dose: 1750 mg (20 mg/kg) IV x 1 given yesterday at 1800 * Random level this morning = 21.1mcg/ml is therapeutic * Vancomycin 500mg IV x1 today after HD * Random level with AM labs on 04/09/21 given this would be patient's next scheduled HD day (will order sooner if HD scheduled tomorrow) Piperacillin/tazobactam * 3.375 g bolus administered over 30 minutes, then 3.375 g IV extended infusion every 12 hours for ESRD on HD Pharmacy will continue to follow and will adjust dose/frequency as necessary. Thank you.
[2021-04-07] MEDS: PIPERACILLIN/TAZOBACTAM 3.375 GM in DEXTROSE 5% 100 ML IV SCH (11:29)
[2021-04-07] MEDS ORDERED: oxyCODONE/ACETAMINOPHEN 5mg/325mg TAB PO PRN (12:24)
--- NOTE | 2021-04-07 14:53 | Pulmonary Consultation ---
Date of Consultation April 07, 2021 Assessment & Plan (1) SOB (shortness of breath): (2) Pleural effusion: (3) COPD (chronic obstructive pulmonary disease): (4) Acute on chronic respiratory failure with hypoxemia: CT chest 04/06/2021 personally reviewed: Large right-sided pleural effusion, small left-sided pleural effusion Impression atelectasis of the right lower lobe Cardiomegaly Minimal but insignificant mediastinal adenopathy --Acute hypoxic respiratory failure Likely secondary to large right-sided pleural effusion with compression atelectasis of the right lower lobe Plan will be to have thoracentesis done COVID-19 PCR negative Nasal MRSA positive BNP greater than 35,000 Continue with O2 supplementation to keep oxygen saturation between 90-92% Incentive spirometry Can use BiPAP nightly and as needed shortness of breath --COPD Not in exacerbation On Trelegy Ellipta at home Continue with Anoro and Arnuity while in the hospital --Paroxysmal A. fib On apixaban --currently on hold Last dose 04/06/21 AM Plan: Thoracentesis 48 hours after the last dose of apixaban which will be in the afternoon 04/08/2021 Benefit of the procedure explained to the patient. Consent signed, witnessed and put in chart Continue with adequate hemodialysis Please note the above document was generated using voice recognition software. It may contain grammatical, syntax or spelling errors.Any formal questions or concerns about the content, text or information contained within the body of this dictation should be directly addressed to the provider for clarification. History of Present Illness Attending Physician: Jatin Simpson DO History of Present Illness 60-year-old female past medical history of end-stage renal disease on dialysis since last 18 months, COPD, CHF, A. fib on apixaban presents to the hospital with complaints of worsening shortness of breath Patient had CT chest which showed large right-sided pleural effusion with right lower lobe atelectasis Pulmonary were consulted for same At the time of examination patient states that she was complaining of shortness of breath since last 3 to 4 days. She has been getting dialyzed on a regular basis. She stated she is compliant with her medications. Denies any fever or chills. No dysuria or diarrhea. Patient is on chronic opioid medication as well. No blurry vision, no headache, no nausea, no vomiting Social history: [id number] smoking history, quit June 2020, denies any illicit drug use Allergies Allergy/AdvReac Type Severity Reaction Status Date / Time shellfish derived Allergy Unknown Unknown Verified 04/06/21 16:15 Home Medications Medication Instructions Recorded Confirmed Type cholecalciferol (vitamin D3) 50 50 mcg PO QAM 08/03/20 04/06/21 History mcg (2,000 unit) capsule lidocaine 5 % topical patch 1 patch TOPICAL DAILY 08/03/20 04/06/21 History oxycodone 5 mg tablet 5 mg PO Q6H PRN 08/03/20 04/06/21 History sodium bicarbonate 650 mg tablet 650 mg PO WM 08/03/20 04/06/21 History ziprasidone HCl 20 mg capsule 20 mg PO BID 08/03/20 04/06/21 History acetaminophen 325 mg tablet 650 mg PO Q6H PRN MDD 3 GMS 10/07/20 04/06/21 History APAP/24 HOURS aspirin 81 mg tablet,delayed 81 mg PO QAM 10/07/20 04/06/21 History release (Aspirin Low Dose) bisacodyl 10 mg rectal suppository 10 mg [place] DIRECTED PRN 10/07/20 04/06/21 History (Dulcolax (bisacodyl)) fluticasone fur. 100 mcg-umeclid 1 inh INHALATION DAILY 10/07/20 04/06/21 History 62.5 mcg-vilant 25 mcg inhalat.powder (Trelegy Ellipta) metoprolol succinate 50 mg 50 mg PO BID 10/07/20 04/06/21 History tablet,extended release 24 hr sodium phosphates 19 gram-7 118 ml [place] DIRECTED PRN 10/07/20 04/06/21 History gram/118 mL enema (Fleet Enema) hydralazine 10 mg tablet 10 mg PO TID #30 tab 10/19/20 04/06/21 Rx lactulose 20 gram/30 mL oral 30 ml PO DAILY #120 ml 10/19/20 04/06/21 Rx solution omeprazole 20 mg capsule,delayed 20 mg PO DAILY 01/10/21 04/06/21 History release bumetanide 1 mg tablet 1 mg PO .TODAY 01/25/21 04/06/21 History nicotine 7 mg/24 hr daily 1 patch TRANSDERMAL UD 01/25/21 04/06/21 History transdermal patch (Nicoderm CQ) polyethylene glycol 3350 17 17 g PO BID 01/25/21 04/06/21 History gram/dose oral powder potassium chloride 10 mEq 10 meq PO Q OTHER DAY 01/25/21 04/06/21 History tablet,extended release(part/cryst) (Klor-Con M) trazodone 50 mg tablet 50 mg PO HS tab 01/25/21 04/06/21 History insulin aspart U-100 100 unit/mL See Rx Instructions .ROUTE 02/07/21 04/06/21 Rx (3 mL) subcutaneous pen (Novolog .COMPLEX #15 ml Flexpen U-100 Insulin aspart) albuterol sulfate 90 mcg/actuation 2 puff INHALATION Q6H PRN 04/06/21 04/06/21 History aerosol inhaler (Proventil HFA) apixaban 2.5 mg tablet (Eliquis) 2.5 mg PO BID 04/06/21 04/06/21 History calcium acetate(phosphat bind) 667 667 mg PO TIDM 04/06/21 04/06/21 History mg capsule clonazepam 0.5 mg tablet 0.5 mg PO BID 04/06/21 04/06/21 History dicyclomine 20 mg tablet 20 mg PO TID 04/06/21 04/06/21 History guaifenesin 600 mg tablet, 600 mg PO BID 04/06/21 04/06/21 History extended release 12 hr (Mucinex) Patient History Medical History (Updated 04/07/21 @ 14:44 by Benita Calles MD) Acute alteration in mental status Amputation of left great toe Anemia Benign essential hypertension delivery delivered Chronic hypoxemic respiratory failure Chronic renal insufficiency, stage IV (severe) CVA (cerebral vascular accident) Diabetic nephropathy 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, limited to breakdown of skin Diastolic CHF, acute on chronic End stage renal disease Hypoglycemia Hypoxemia Insomnia Lethargy Pneumonia due to 2019 novel coronavirus Pressure ulcer of BKA stump, stage 2 Shortness of breath Traumatic open wound of left lower leg Volume overload Surgical History Hx of right BKA Social History Smoking Status: Former smoker Tobacco Type: Cigarettes packs per day: 2; Years Smoked: 40; Cigarettes Per Day: 2 packs; Smoking End Date: June 2020; Second Hand Exposure: Yes; Do You Dip or Chew Tobacco: No; Tobacco Cessation Education Requested by Patient: Yes Hx Alcohol Use: Yes Alcohol type: beer, wine and hard liquor Hx Substance Use: No Preferred Language: Hebrew Communication Ability: Effective Decal Transferrer Required: No Beliefs That Will Affect Care: None marital status: Unknown Current Living Situation: Personal Care Facility Current Living Situation Comment: [facility] current occupational status: unemployed and disabled 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 How many Children do You have: 2 Feels Safe at Home: Yes Safety Concerns: Feels Safe At This Time caffeine: Yes Dental Care, Regularly: No Assistive Devices: Mechanical Lift Assistive Devices Comment: Glasses at home Review of Systems Review of Systems: All systems reviewed & are unremarkable except as noted in HPI & below Physical Exam Physical Exam: Constitutional: No acute distress HEENT: EOMI, PERRLA Respiratory system: Decreased air entry bilaterally more decreased on the right side, positive crackles bilateral lower lobes, no wheeze, no rhonchi CVS: S1-S2 positive, no murmurs or gallops Abdomen: Soft, nontender, nondistended, positive bowel sounds x4 Extremities: +2 pulses bilaterally radialis, +2 left dorsalis pedis, no cyanosis, +3 pitting edema left lower extremity, right BKA Neuro: Awake alert oriented x3 Psych: Normal mood and affect G/U: No [place] Skin: no rashes, warm and dry Lymphatic: no cervical or axillary lymphadenopathy Results & Data Results & Data ([facility]) Vital Signs (Past 12 Hours) Vital Signs Temp Pulse Pulse Resp BP Pulse Ox 04/07/21 10:58 36.5 C 71 18 95/62 L 96 04/07/21 07:00 36.8 C 68 68 18 100/67 96 04/07/21 04:04 36.8 C 72 18 117/68 98 04/07/21 07:09 04/07/21 07:09 PG Care Time/CCT Total # of Minutes Spent Total Time Spent with Patient: Total time spent is greater than 50% in co ordination of care (as documented) at patient's floor/unit and/or counseling patient: Coding Level of Care Code 53598 Inpt Consult Level 4 Diagnoses SOB (shortness of breath) R06.02 Pleural effusion J90 COPD (chronic obstructive pulmonary disease) J44.9 Acute on chronic respiratory failure with hypoxemia J96.21
--- NOTE | 2021-04-07 17:58 | XCELERA ---
[id number] \\[id number]
[2021-04-07] MEDS ORDERED: VANCOMYCIN HCL 500 MG in SODIUM CHLORIDE 0.9% 250 ML IV ONE (18:00)
--- NOTE | 2021-04-07 19:13 | Hospitalist Progress Note ---
Date of Service April 07, 2021 Assessment & Plan (1) Pleural effusion: Plan: Patient is a 60 year old female with PMHx ESRD on dialysis, diastolic CHF, COPD, DM2, who presents with chief complaint of worsening shortness of breath. SOB secondary to R pleural effusion and PNA -CTA chest noting moderate to large R pleural effusion with associated consolidation of RLL in addition to cardiomegaly and intralobular septal thickening concerning for overload. -Continue Zosyn and Vancomycin -Thoracocentesis tomorrow. Suspect UTI -CT ab/pelv with findings suggestive of cystitis, UA with epithelial cells concerning for contamination. -Difficult to correlate symptoms due to patients awareness and lack of urination -Coverage with Zosyn and Vancomycin as above Acute on chronic HFpEF -In acute exacerbation, BNP >35k -Unfortunately minimal urine output -Patient had hemodialysis done today. Paroxysmal AFib -Will hold tonights eliquis dose for possible thoracentesis -Continue Toprol 50mg BID Hypertension -With relatively soft pressures systolic in mid 100's -Will hold Hydralazine at this time -Continue Metoprolol -Hold ASA COPD -Continue Mucinex -Continue Anoro Ellipta -Continue Arnuity Ellipta ESRD on Dialysis -Dialysis T, Th, Sat -Nephrology consulted -Continue Phoslo -Nephrocaps QD Bipolar disorder -Continue home Ziprasidone -Continue home Trazodone Dispo: M/S Telemetry FEN: Dialysis renal, DM2 diet, fluid restrict 1800ml DVT: hold eliquis Code: Full (2) Diastolic CHF, acute on chronic: (3) ESRD (end stage renal disease) on dialysis: (4) Pneumonia: (5) SOB (shortness of breath): Admission and Anticipated Discharge Date Admission Date: April 06, 2021 Supervising Physician Co-Signing Physician Notes I personally examined the patient and verified all senior points of history and exam, discussed case, and agree with decision making with Dr Combs. Main complaint for me is her back. Notes that her back pain is coming going on for a while, always worse whenever she is in the hospital, low back, goes down left leg some. Otherwise no new complaints. Vitals noted, in general she is awake and alert pleasant no distress. HEENT normocephalic atraumatic mucous membranes moist. Breathing unlabored no accessory muscle use good effort. Back pain. Notes that she takes Percocet 10 mg as an outpatient. Pain seems to be reasonably uncontrolledwe will try to look for old films, in the meantime, will separate her Percocet into acetaminophen and oxycodonewe will give the acetaminophen every 6 hours [id number], will do the oxycodone 5 every 4 for moderate pain 10 for severe, topical diclofenac during the day lidocaine patch at night. Otherwise as above. Subjective Patient seen at bedside this morning. Patient was in a rest whenever we came to visit her. She had some complaints of pain this morning as her oxycodone home medication was not on our medications being given to her inpatient. That was restarted this morning. She was also given Tylenol as needed for any breakthrough pain. She is not very responsive during the examination as she wants to try to sleep. She denies any worsening shortness of breath. Patient has no other complaints at this time. Review of Systems Review of Systems: All systems reviewed & are unremarkable except as noted in HPI & below Physical Exam Constitutional: WD/WN, vitals as above Fatigued, but arousable to stimulation. Eyes: + anicteric sclerae Neck: trachea midline Respiratory: normal respiratory effort Auscultation: + diminished lung sounds (On the right) and + rales Cardiovascular: Rate/Rhythm: regular rate and regular rhythm Extremities: + edema Gastrointestinal (Abdomen): normal bowel sounds, soft, nontender, no hepatosplenomegaly Psychiatric: Orientation: alert Results & Data Results & Data ([facility]) Vital Signs (Past 12 Hours) Vital Signs Temp Pulse Pulse Pulse Resp BP BP 04/07/21 17:42 36.3 C L 63 94/49 L 04/07/21 17:28 36.3 C L 64 18 90/52 L 04/07/21 17:10 61 93/47 L 04/07/21 16:40 63 94/62 L 04/07/21 16:20 66 104/65 04/07/21 16:00 66 110/75 04/07/21 15:40 66 110/70 04/07/21 15:20 67 108/68 04/07/21 15:00 67 93/64 L 04/07/21 14:40 68 105/60 04/07/21 14:20 67 95/63 L 04/07/21 14:07 68 99/68 L 04/07/21 14:00 36.5 C 67 04/07/21 10:58 36.5 C 71 18 95/62 L Pulse Ox 04/07/21 17:42 04/07/21 17:28 95 04/07/21 17:10 04/07/21 16:40 04/07/21 16:20 04/07/21 16:00 04/07/21 15:40 04/07/21 15:20 04/07/21 15:00 04/07/21 14:40 04/07/21 14:20 04/07/21 14:07 04/07/21 14:00 04/07/21 10:58 96 Resident Activity Tracking Resident Involvement: Resident Care Provided Care Provided: Adult Hospital Medicine
--- NOTE | 2021-04-07 19:31 | Billing Data ---
Date of Service April 07, 2021 Coding Level of Care Code 84885 Subseq Hosp Care Lvl 3
[2021-04-07] MEDS: oxyCODONE HCL IR 5 MG TAB (IMMEDIATE RELEASE) PO PRN (19:43)
--- NOTE | 2021-04-07 20:39 | Billing Data ---
Date of Service April 07, 2021 Coding Level of Care Code 76673 Initial Inpt Care Lvl 3
[2021-04-07] MEDS: DICLOFENAC SOD 1% GEL 100 GM TUBE EXT SCH (20:53)
[2021-04-07] MEDS: ACETAMINOPHEN 325 MG TAB PO SCH (20:53)
[2021-04-07] MEDS: LIDOCAINE 5% 1 PATCH TD SCH (20:54)
[2021-04-07] MEDS: traZODone HCL 50 MG TAB PO SCH (20:54)
[2021-04-08] MEDS: PIPERACILLIN/TAZOBACTAM 3.375 GM in DEXTROSE 5% 100 ML IV SCH ×3 (00:09→23:26)
[2021-04-08] MEDS: oxyCODONE HCL IR 5 MG TAB (IMMEDIATE RELEASE) PO PRN ×5 (03:40→22:28)
[2021-04-08 06:42] LABS: Hematocrit (blood only) 29.6 % (37-47); Hemoglobin 8.8 g/dL (12.0-16.0); Mean Corpuscular Hgb Conc 29.7 g/dL (32-36); Mean Platelet Volume 9.9 fL (7.4-10.4); Nucleated RBC # (auto) 0.02 K/uL (0-0); Nucleated RBC % (auto) 0.3 %; Platelet Count 241 K/uL (130-400); RDW Coefficient of Variation 17.9 % (11.5-14.5); RDW Standard Deviation 65.9 fL (36.4-46.3); Red Blood Count 2.93 M/uL (4.2-5.4); White Blood Count 8.51 K/uL (4.8-10.8)
[2021-04-08 07:04] LABS: BUN Creatinine Ratio 7.2 (10-20); Calcium 8.1 mg/dl (8.5-10.1); Creatinine Clr Calc Pharmacy 23.9 ml/min; Est GFR (African American) 19.2 ml/min; Est GFR (Non-African American) 16.6 ml/min
--- NOTE | 2021-04-08 08:20 | Pulmonology Progress Note ---
Date of Service April 08, 2021 Assessment & Plan (1) SOB (shortness of breath): (2) Pleural effusion: (3) COPD (chronic obstructive pulmonary disease): (4) Acute on chronic respiratory failure with hypoxemia: Plan: CT chest 04/06/2021 personally reviewed: Large right-sided pleural effusion, small left-sided pleural effusion Impression atelectasis of the right lower lobe Cardiomegaly Minimal but insignificant mediastinal adenopathy --Acute hypoxic respiratory failure Likely secondary to large right-sided pleural effusion with compression atelectasis of the right lower lobe Plan will be to have thoracentesis done COVID-19 PCR negative Nasal MRSA positive BNP greater than 35,000 Continue with O2 supplementation to keep oxygen saturation between 90-92% Incentive spirometry Can use BiPAP nightly and as needed shortness of breath --COPD Not in exacerbation On Trelegy Ellipta at home Continue with Anoro and Arnuity while in the hospital --Paroxysmal A. fib On apixaban --currently on hold Last dose 04/06/21 AM Plan: For thoracentesis today Please note the above document was generated using voice recognition software. It may contain grammatical, syntax or spelling errors.Any formal questions or concerns about the content, text or information contained within the body of this dictation should be directly addressed to the provider for clarification. Admission and Anticipated Discharge Date Admission Date: April 06, 2021 Subjective Patient seen and examined. No acute distress, no adverse events overnight. Patient states her breathing is the same Denies any fever or chills. No cough. No headache, no nausea, no vomiting. No dizziness, lightheaded denies. Review of Systems Review of Systems: All systems reviewed & are unremarkable except as noted in Subjective Physical Exam Physical Exam: Constitutional: No acute distress HEENT: EOMI, PERRLA Respiratory system: Decreased air entry bilaterally more decreased on the right side, positive crackles bilateral lower lobes, no wheeze, no rhonchi CVS: S1-S2 positive, no murmurs or gallops Abdomen: Soft, nontender, nondistended, positive bowel sounds x4 Extremities: +2 pulses bilaterally radialis, +2 left dorsalis pedis, no c yanosis, +3 pitting edema left lower extremity, right BKA Neuro: Awake alert oriented x3 Psych: Normal mood and affect G/U: No Melchor Skin: no rashes, warm and dry Lymphatic: no cervical or axillary lymphadenopathy Results & Data Results & Data ([facility]) Vital Signs (Past 12 Hours) Vital Signs Temp Pulse Pulse Resp BP Pulse Ox 04/08/21 03:06 36.3 C L 65 20 95/72 L 100 04/08/21 01:32 65 04/07/21 22:58 36.3 C L 66 18 105/69 99 04/07/21 20:20 36.4 C L 67 16 88/56 L 92 04/08/21 05:28 04/08/21 05:28 PG Care Time/CCT Total # of Minutes Spent Total Time Spent with Patient: Total time spent is greater than 50% in coordination of care (as documented) at patient's floor/unit and/or counseling patient: Coding Level of Care Code 66179 Subseq Hosp Care Lvl 3 Diagnoses SOB (shortness of breath) R06.02 Pleural effusion J90 COPD (chronic obstructive pulmonary disease) J44.9 Acute on chronic respiratory failure with hypoxemia J96.21
[2021-04-08] MEDS: ACETAMINOPHEN 325 MG TAB PO SCH ×4 (09:00→20:55)
[2021-04-08] MEDS: LACTULOSE SYRUP 20 GM/30 ML UDC PO SCH (09:01)
[2021-04-08] MEDS: NEPHROCAPS PO SCH (09:01)
[2021-04-08] MEDS: PANTOprazole 40 MG TAB PO SCH (09:03)
[2021-04-08] MEDS: METOPROLOL SUCC 50MG EXT REL TAB PO SCH ×2 (09:03→21:00)
[2021-04-08] MEDS: DICLOFENAC SOD 1% GEL 100 GM TUBE EXT SCH ×4 (09:04→20:56)
[2021-04-08] MEDS: guaiFENesin 600 MG TABCR PO SCH ×2 (09:04→20:57)
[2021-04-08] MEDS: POLYETHYLENE (MIRALAX) 17 GM PACK PO SCH (09:05)
[2021-04-08] MEDS: FLUTICASONE FUROATE 100MCG 14 PUFFS/INHALER INH SCH (09:05)
[2021-04-08] MEDS: CALCIUM ACETATE 667 MG CAP/TAB PO SCH ×3 (09:07→17:25)
[2021-04-08] MEDS: INSULIN ASPART 100 UNITS/ML 3 ML PEN SC SCH ×4 (09:08→20:59)
[2021-04-08] MEDS: INSULIN GLARGINE SOLOSTAR 100 UNITS/ML 3 ML PEN SC SCH (09:09)
[2021-04-08] MEDS: UMECLIDINIUM/VILANTEROL 62.5/25MCG 7 PUFFS/INHALER INH SCH (09:12)
--- NOTE | 2021-04-08 10:06 | Nephrology Progress Note ---
Date of Service April 08, 2021 Assessment & Plan (1) ESRD (end stage renal disease) on dialysis: Plan: * ESRD on HD TTS at [facility] * Volume status and electrolyte balance are acceptable. No acute indication for HD today * Will schedule next HD for am - heparin free (2) Pleural effusion: Plan: * Possible parapneumonic effusion * COVID negative * Thoracentesis today as per Pulmonology * Currently on dose adjusted IV Zosyn therapy (3) Chronic anemia: Plan: * Will provide JAYNE with HD Admission and Anticipated Discharge Date Admission Date: April 06, 2021 Subjective Ms. Garay was evaluated in her hospital room this morning. She remains mildly dyspneic and is anxious to undergo thoracentesis. Dialysis was performed yesterday for 3 hours w/ 2 L UF. Review of Systems Constitutional: + weakness; no fever Eyes: no problem reported Ear, Nose, Mouth, Throat: no problem reported Respiratory: + dyspnea; no cough Cardiovascular: + edema; no chest pain and no palpitations Gastrointestinal: no abdominal pain, no nausea, no vomiting and no diarrhea/loose stools Musculoskeletal: no back pain Integumentary: no rash Neurologic: no falls, no dizziness and no confusion Physical Exam Constitutional: + ill appearing Eyes: PERRL, conjunctivae normal, anicteric sclerae ENMT: external ear and nose normal, oropharynx normal Neck: trachea midline, no thyromegaly Respiratory: normal respiratory effort Auscultation: + breath sounds absent (R base) Cardiovascular: RRR, no murmur, no edema Gastrointestinal (Abdomen): normal bowel sounds, soft, nontender, no hepatosplenomegaly Neurologic: awake; not confused Results & Data ([facility]) Vital Signs (Past 12 Hours) Vital Signs Temp Pulse Pulse Resp BP Pulse Ox 04/08/21 03:06 36.3 C L 65 20 95/72 L 100 04/08/21 01:32 65 04/07/21 22:58 36.3 C L 66 18 105/69 99 Laboratory Results Laboratory Tests 04/07/21 04/08/21 04/08/21 07:09 05:28 05:28 WBC 8.51 Hgb 8.8 L Hct 29.6 L Plt Count 241 INR 1.3 H Sodium 132 L Potassium 4.0 Chloride 99 Carbon Dioxide 30 BUN 21 H Creatinine 2.98 H D Glucose 183 H Calcium 8.1 L PG Care Time/CCT Total # of Minutes Spent Total Time Spent with Patient: Total time spent is greater than 50% in coordination of care (as documented) at patient's floor/unit and/or counseling patient: Coding Level of Care Code 06367 Subseq Hosp Care Lvl 3 Diagnoses ESRD (end stage renal disease) on dialysis N18.6; Z99.2 Pleural effusion J90 Chronic anemia D64.9
--- NOTE | 2021-04-08 14:06 | Procedure Note ---
Procedure Note Date of Service April 08, 2021 Note Procedure: Diagnostic therapeutic ultrasound-guided catheter thoracentesis [place] Floor Layer: Dr. Benita Calles Indication: Right pleural effusion Consent: Signed by patient and verified with timeout prior to procedure Anesthesia: 1% lidocaine without epinephrine local. Procedure: Consent was verified and timeout performed. Appropriate imaging studies were reviewed prior to the procedure. Patient was placed in a seated position and limited thoracic ultrasound was performed of the right chest. See separate imaging. Appropriate site above the diaphragm for thoracentesis was selected. The skin was prepped and draped in normal sterile fashion. Lidocaine was used for local analgesia. Fluid was aspirated via the finder needle. A small skin facundo was made with the scalpel and the catheter over the needle apparatus was advanced over the rib into the pleural space. Using the syringe one-way valve system, a total of 1550 mL's of dark cloudy serosanguineous fluid was removed. The catheter was removed and observed to be intact. A sterile dressing was applied. Post procedure chest x-ray was ordered. Good lung sliding was appreciated along with B-lines postprocedure on the ultrasound Fluid was sent for labs, culture and cytology. Complications: None Blood loss: None Coding CPT Codes Pulmonary/Thoracic - Pulmonary and Thoracic: 94332 Thoracentesis w imaging ([id number]) [facility] [place]odes ([place]) Pulmonary/Thoracic Procedure 1: Pulmonary and Thoracic: 38859 Thoracentesis w imaging
[2021-04-08] MEDS ORDERED: HYDROmorphone INJ 0.5 MG/0.5 ML SYR IV STA (14:15)
[2021-04-08 15:04] LABS: Albumin Level 2.1 gm/dl (3.4-5.0); Bilirubin,Total 0.6 mg/dl (0.2-1); Total Protein 7.3 gm/dl (6.4-8.2)
[2021-04-08 15:07] LABS: Glucose Pleural Fluid 178 mg/dl
[2021-04-08 15:15] LABS: Amylase Pleural Fluid 48 U/L; LDH Pleural Fluid 95 U/L; Total Protein Pleural Fluid 3.2 g/dl
--- NOTE | 2021-04-08 15:43 | XRay Report ---
TWO VIEW CHEST CLINICAL HISTORY: Status post right-sided thoracentesis. FINDINGS: AP and lateral chest radiographs are compared to study dated 04/07/2021 and correlated with c hest CT dated 04/06/2021. A right internal jugular central venous catheter is unchanged in position. Th e heart is enlarged. There is pulmonary vascular congestion. There is a small right pleural effusion with bibasilar consolidation. Trace pleural fluid is seen on the left. No pneumothorax is identified. The skeletal structures are osteopenic. The bony thorax appears intact. IMPRESSION: 1. Cardiomegaly with evidence of congestive failure. 2. Small right pleural effusion with right basilar consolidation. The right pleural effusion has decr eased in size from prior studies. 3. No pneumothorax is identified. ACT 112: Negative or not required by law. Electronically signed by: Phil Alfaro M.D. 04/08/2021 3:42 PM
[2021-04-08 15:55] LABS: Appearance Pleural Fluid HAZY; Basophils, Fluid 0 %; Color Pleural Fluid PALE YELLOW; Eosinophils, Fluid 0 %; Lymphocytes, Fluid 0 %; Mono,Macrophage,Mesothelial 38 %; Neutrophils, Fluid 62 %; RBC Pleural Fluid (A) 7000 /uL; Source Pleural Fluid RIGHT LUNG; WBC Pleural Fluid (A) 1899 /uL
[2021-04-08] MEDS: traZODone HCL 50 MG TAB PO SCH (20:55)
[2021-04-08] MEDS: LIDOCAINE 5% 1 PATCH TD SCH (20:58)
[2021-04-09 06:12] LABS: Hematocrit (blood only) 29.3 % (37-47); Hemoglobin 8.8 g/dL (12.0-16.0); Mean Corpuscular Hemoglobin 29.5 pg (25-34); Mean Corpuscular Volume 98.3 fL (80-100); Mean Platelet Volume 9.3 fL (7.4-10.4); Platelet Count 229 K/uL (130-400); RDW Coefficient of Variation 17.6 % (11.5-14.5); RDW Standard Deviation 62.8 fL (36.4-46.3); Red Blood Count 2.98 M/uL (4.2-5.4); White Blood Count 8.14 K/uL (4.8-10.8)
[2021-04-09 06:48] LABS: BUN Creatinine Ratio 7.1 (10-20); Calcium 8.2 mg/dl (8.5-10.1); Creatinine Clr Calc Pharmacy 17.7 ml/min; Est GFR (African American) 13.4 ml/min; Est GFR (Non-African American) 11.5 ml/min; Potassium 4.2 mmol/L (3.5-5.1)
[2021-04-09] MEDS ORDERED: EPOETIN ALFA 10,000 UNITS/ML VIAL IV SCH (07:00)
[2021-04-09] MEDS ORDERED: SODIUM CHLORIDE 0.9% 1000ML 1,000 ML IV PRN (07:00)
--- NOTE | 2021-04-09 08:14 | Pulmonology Progress Note ---
Date of Service April 09, 2021 Assessment & Plan (1) SOB (shortness of breath): (2) Pleural effusion: (3) COPD (chronic obstructive pulmonary disease): (4) Acute on chronic respiratory failure with hypoxemia: Plan: CT chest 04/06/2021 personally reviewed: Large right-sided pleural effusion, small left-sided pleural effusion Impression atelectasis of the right lower lobe Cardiomegaly Minimal but insignificant mediastinal adenopathy --Acute hypoxic respiratory failure Likely secondary to large right-sided pleural effusion with compression atelectasis of the right lower lobe S/p thoracentesis 04/08/2021, interestingly transudative as per lights criteria Pleural fluid: LDH 95, protein 3.2, glucose 178, pH 7.27 Serum: LDH 189, protein 7.3 Follow-up cytology COVID-19 PCR negative Nasal MRSA positive BNP greater than 35,000 Continue with O2 supplementation to keep oxygen saturation between 90-92% Incentive spirometry Can use BiPAP nightly and as needed shortness of breath --COPD Not in exacerbation On Trelegy Ellipta at home Continue with Anoro and Arnuity while in the hospital --Paroxysmal A. fib On apixaban --currently on hold Last dose 04/06/21 AM Plan: Status post thoracentesis 04/08/2021 Follow-up cytology Incentive spirometry Complete the course of antibiotics for total of 7 days Okay to resume apixaban today No further recommendation from pulmonary perspective, please call directly with any questions Please note the above document was generated using voice recognition software. It may contain grammatical, syntax or spelling errors.Any formal questions or concerns about the content, text or information contained within the body of this dictation should be directly addressed to the provider for clarification. Admission and Anticipated Discharge Date Admission Date: April 06, 2021 Subjective Patient seen and examined at bedside. No acute distress She does complain of weight chest pain which is present all the time. She does state that she is feeling better when it comes to her breathing. She is saturating 95-96% on room air. Denies any nausea or vomiting. Does complain of chronic low back pain. Has been afebrile. Review of Systems Review of Systems: All systems reviewed & are unremarkable except as noted in Subjective Physical Exam Physical Exam: Constitutional: No acute distress HEENT: EOMI, PERRLA Respiratory system: Decreased air entry bilaterally, positive crackles bilateral lower lobes, no wheeze, no rhonchi CVS: S1-S2 positive, no murmurs or gallops Abdomen: Soft, nontender, nondistended, positive bowel sounds x4 Extremities: +2 pulses bilaterally radialis, +2 left dorsalis pedis, no cyan osis, +3 pitting edema left lower extremity, right BKA, left first toe amputated Neuro: Awake alert oriented x3 Psych: Normal mood and affect G/U: No Melchor Skin: no rashes, warm and dry Lymphatic: no cervical or axillary lymphadenopathy Results & Data Results & Data ([facility]) Vital Signs (Past 12 Hours) Vital Signs Temp Pulse Pulse Resp BP Pulse Ox 04/09/21 07:25 37.0 C 92 H 20 104/72 96 04/09/21 04:23 36.8 C 69 18 102/69 100 04/08/21 23:45 77 04/08/21 23:39 36.6 C 77 18 98/63 L 97 04/09/21 06:00 04/09/21 06:00 PG Care Time/CCT Total # of Minutes Spent Total Time Spent with Patient: Total time spent is greater than 50% in coordination of care (as documented) at patient's floor/unit and/or counseling patient: Coding Level of Care Code 90514 Subseq Hosp Care Lvl 3 Diagnoses SOB (shortness of breath) R06.02 Pleural effusion J90 COPD (chronic obstructive pulmonary disease) J44.9 Acute on chronic respiratory failure with hypoxemia J96.21
[2021-04-09] MEDS: clonazePAM 0.5 MG TAB PO PRN (08:32)
[2021-04-09] MEDS: NEPHROCAPS PO SCH (08:33)
[2021-04-09] MEDS: LACTULOSE SYRUP 20 GM/30 ML UDC PO SCH (08:34)
[2021-04-09] MEDS: METOPROLOL SUCC 50MG EXT REL TAB PO SCH ×2 (08:34→21:25)
[2021-04-09] MEDS: PANTOprazole 40 MG TAB PO SCH (08:35)
[2021-04-09] MEDS: CALCIUM ACETATE 667 MG CAP/TAB PO SCH ×3 (08:35→19:10)
[2021-04-09] MEDS: guaiFENesin 600 MG TABCR PO SCH ×2 (08:35→21:33)
[2021-04-09] MEDS: ACETAMINOPHEN 325 MG TAB PO SCH ×4 (08:35→21:25)
[2021-04-09] MEDS: UMECLIDINIUM/VILANTEROL 62.5/25MCG 7 PUFFS/INHALER INH SCH (08:37)
[2021-04-09] MEDS: FLUTICASONE FUROATE 100MCG 14 PUFFS/INHALER INH SCH (08:37)
[2021-04-09] MEDS: INSULIN GLARGINE SOLOSTAR 100 UNITS/ML 3 ML PEN SC SCH (08:38)
[2021-04-09] MEDS: POLYETHYLENE (MIRALAX) 17 GM PACK PO SCH (08:38)
[2021-04-09] MEDS: INSULIN ASPART 100 UNITS/ML 3 ML PEN SC SCH ×4 (08:39→21:26)
--- NOTE | 2021-04-09 08:40 | Hospitalist Progress Note ---
Date of Service April 09, 2021 Assessment & Plan (1) Pleural effusion: Plan: Patient is a 60 year old female with PMHx ESRD on dialysis, diastolic CHF, COPD, DM2, who presents with chief complaint of worsening shortness of breath. SOB secondary to R pleural effusion and PNA -CTA chest noting moderate to large R pleural effusion with associated consolidation of RLL in addition to cardiomegaly and intralobular septal thickening concerning for overload. -Continue Zosyn, vancomycin d/c 04/07 -Thoracocentesis performed by pulmonology 04/08, 1550cc dark cloudy fluid, transudative -patient no longer complaining of SOB, should she continue to do well she can be d/c home tomorrow with abx Suspect UTI -CT ab/pelv with findings suggestive of cystitis, UA with epithelial cells concerning for contamination. -Difficult to correlate symptoms due to patients awareness and lack of urination -Coverage with Zosyn as above Acute on chronic HFpEF -In acute exacerbation, BNP >35k -Unfortunately minimal urine output -Nephrology scheduling dialysis sunday, dialysis scheduled this afternoon Paroxysmal AFib -Eliquis was held for thoracentesis, pulmonology recommends can be resumed at this time. -Continue Toprol 50mg BID Hypertension -With relatively soft pressures systolic in mid 100's -Will hold Hydralazine at this time -Continue Metoprolol -Hold ASA COPD -Continue Mucinex -Continue Anoro Ellipta -Continue Arnuity Ellipta ESRD on Dialysis -Dialysis T, , Sat -Nephrology consulted -Continue Phoslo -Nephrocaps QD Bipolar disorder -Continue home Ziprasidone -Continue home Trazodone Dispo: M/S Telemetry FEN: Dialysis renal, DM2 diet, fluid restrict 1800ml DVT: eliquis Code: Full (2) Diastolic CHF, acute on chronic: (3) ESRD (end stage renal disease) on dialysis: (4) Pneumonia: (5) SOB (shortness of breath): Admission and Anticipated Discharge Date Admission Date: April 06, 2021 Supervising Physician Co-Signing Physician Notes I personally examined the patient and verified all senior points of history and exam, discussed case, and agree with decision making with Dr Rondon. Resting comfortably. No new problems. Vitals noted, in general she is sleeping comfortably no distress. HEENT normocephalic atraumatic mucous membranes moist. Breathing unlabored no accessory muscle use good effort. Skin shows no rashes no pallor or icterus. Pneumonia/parapneumonic effusionthoracentesis performed, on antibiotics. Continue supportive care. ESRDHD Otherwise as above. Subjective 60yo Female seen at bedside, PMH ESRD on dialysis, diastolic CHF, COPD, DM2, bipolar, afib, HTN, here for SOB secondary to R pleural effusion and PNA. Patient was lethargic, answered yes/no questions with corresponding noises but frequently dozed before answering, when asked where she was patient stated 'hospital', she is not oriented to date. Patient complains of some chest pain but denies SOB. When asked, patient is aware she has dialysis on Sunday, , Sunday, and was worried she would miss dialysis. Per nurse patient had a period of anxiety this morning and was given PRN Clonazepam, patient usually is more sedated after taking that medication. Review of Systems Review of Systems: Positive Chest Pain Negative fever chills Negative headache dizziness Negative palpitations SOB Negative nausea vomitting diarrhea constipation Negative numbness tingling rash swelling Physical Exam Constitutional: + lethargic Respiratory: normal respiratory effort; no respiratory distress and no cough Auscultation: lungs clear to auscultation bilaterally (limited respiratory effort) Cardiovascular: Rate/Rhythm: regular rate and regular rhythm Heart Sounds: normal S1 and normal S2; no gallop, no murmur and no cardiac rub Musculoskeletal: BKA R leg, left toe amputated, +2 pitting edema b/l up to thigh Results & Data Results & Data ([facility]) Vital Signs (Past 12 Hours) Vital Signs Temp Pulse Pulse Resp BP Pulse Ox 04/09/21 07:25 37.0 C 92 H 20 104/72 96 04/09/21 04:23 36.8 C 69 18 102/69 100 04/08/21 23:45 77 04/08/21 23:39 36.6 C 77 18 98/63 L 97 Laboratory Results 04/09/21 04/09/21 04/09/21 Range/Units 11:11 07:45 06:00 WBC (4.8-10.8) K/uL RBC (4.2-5.4) M/uL Hgb (12.0-16.0) g/dL Hct (37-47) % MCV (80-100) fL MCH (25-34) pg MCHC (32-36) g/dL RDW Std Deviation (36.4-46.3) fL RDW Coeff of Esa (11.5-14.5) % Plt Count (130-400) K/uL MPV (7.4-10.4) fL Sodium (136-145) mmol/L Potassium (3.5-5.1) mmol/L Chloride (98-107) mmol/L Carbon Dioxide (21-32) mmol/L Anion Gap (3-11) BUN (7-18) mg/dl Creatinine (0.6-1.2) mg/dl Est Cr Clr Drug Dosing ml/min Est GFR ( Amer) ml/min Est GFR (Non-Af Amer) ml/min BUN/Creatinine Ratio (10-20) Glucose (70-99) mg/dl POC Glucose 201 H 180 H (70-99) mg/dl Calcium (8.5-10.1) mg/dl Total Bilirubin (0.2-1) mg/dl Lactate Dehydrogenase (84-246) U/L Total Protein (6.4-8.2) gm/dl Albumin (3.4-5.0) gm/dl Fluid Neutrophils % % Fluid Lymphocytes % % Fluid Eosinophils % % Fluid Basophils % % Fluid Mes[place] % % Fluid Comment Pleural Fluid Source Pleural Color Pleural Appearance Pleural pH (7.3-7.4) Pleural WBC /uL Pleural RBC /uL Pleural Total Protein g/dl Pleural LDH U/L Pleural Glucose mg/dl Pleural Amylase U/L Pleural Cholesterol Random Vancomycin 18.2 mcg/ml 04/09/21 04/09/21 04/08/21 Range/Units 06:00 06:00 20:26 WBC 8.14 (4.8-10.8) K/uL RBC 2.98 L (4.2-5.4) M/uL Hgb 8.8 L (12.0-16.0) g/dL Hct 29.3 L (37-47) % MCV 98.3 (80-100) fL MCH 29.5 (25-34) pg MCHC 30.0 L (32-36) g/dL RDW Std Deviation 62.8 H (36.4-46.3) fL RDW Coeff of Esa 17.6 H (11.5-14.5) % Plt Count 229 (130-400) K/uL MPV 9.3 (7.4-10.4) fL Sodium 129 L (136-145) mmol/L Potassium 4.2 (3.5-5.1) mmol/L Chloride 97 L (98-107) mmol/L Carbon Dioxide 27 (21-32) mmol/L Anion Gap 5.0 (3-11) BUN 29 H (7-18) mg/dl Creatinine 4.02 H D (0.6-1.2) mg/dl Est Cr Clr Drug Dosing 17.7 ml/min Est GFR ( Amer) 13.4 ml/min Est GFR (Non-Af Amer) 11.5 ml/min BUN/Creatinine Ratio 7.1 L (10-20) Glucose 167 H (70-99) mg/dl POC Glucose 203 H (70-99) mg/dl Calcium 8.2 L (8.5-10.1) mg/dl Total Bilirubin (0.2-1) mg/dl Lactate Dehydrogenase (84-246) U/L Total Protein (6.4-8.2) gm/dl Albumin (3.4-5.0) gm/dl Fluid Neutrophils % % Fluid Lymphocytes % % Fluid Eosinophils % % Fluid Basophils % % Fluid [place] % % Fluid Comment Pleural Fluid Source Pleural Color Pleural Appearance Pleural pH (7.3-7.4) Pleural WBC /uL Pleural RBC /uL Pleural Total Protein g/dl Pleural LDH U/L Pleural Glucose mg/dl Pleural Amylase U/L Pleural Cholesterol Random Vancomycin mcg/ml 04/08/21 04/08/21 04/08/21 Range/Units 16:30 14:34 14:33 WBC (4.8-10.8) K/uL RBC (4.2-5.4) M/uL Hgb (12.0-16.0) g/dL Hct (37-47) % MCV (80-100) fL MCH (25-34) pg MCHC (32-36) g/dL RDW Std Deviation (36.4-46.3) fL RDW Coeff of Esa (11.5-14.5) % Plt Count (130-400) K/uL MPV (7.4-10.4) fL Sodium (136-145) mmol/L Potassium (3.5-5.1) mmol/L Chloride (98-107) mmol/L Carbon Dioxide (21-32) mmol/L Anion Gap (3-11) BUN (7-18) mg/dl Creatinine (0.6-1.2) mg/dl Est Cr Clr Drug Dosing ml/min Est GFR ( Amer) ml/min Est GFR (Non-Af Amer) ml/min BUN/Creatinine Ratio (10-20) Glucose (70-99) mg/dl POC Glucose 198 H (70-99) mg/dl Calcium (8.5-10.1) mg/dl Total Bilirubin (0.2-1) mg/dl Lactate Dehydrogenase (84-246) U/L Total Protein (6.4-8.2) gm/dl Albumin (3.4-5.0) gm/dl Fluid Neutrophils % 62 % Fluid Lymphocytes % 0 % Fluid Eosinophils % 0 % Fluid Basophils % 0 % Fluid Mes[place] % 38 % Fluid Comment Pleural Fluid Source RIGHT LUNG Pleural Color PALE YELLOW Pleural Appearance HAZY Pleural pH (7.3-7.4) Pleural WBC 1899 /uL Pleural RBC 7000 /uL Pleural Total Protein 3.2 g/dl Pleural LDH 95 U/L Pleural Glucose 178 mg/dl Pleural Amylase 48 U/L Pleural Cholesterol Pending Random Vancomycin mcg/ml 04/08/21 04/08/21 04/08/21 Range/Units 14:33 14:16 14:16 WBC (4.8-10.8) K/uL RBC (4.2-5.4) M/uL Hgb (12.0-16.0) g/dL Hct (37-47) % MCV (80-100) fL MCH (25-34) pg MCHC (32-36) g/dL RDW Std Deviation (36.4-46.3) fL RDW Coeff of Esa (11.5-14.5) % Plt Count (130-400) K/uL MPV (7.4-10.4) fL Sodium (136-145) mmol/L Potassium (3.5-5.1) mmol/L Chloride (98-107) mmol/L Carbon Dioxide (21-32) mmol/L Anion Gap (3-11) BUN (7-18) mg/dl Creatinine (0.6-1.2) mg/dl Est Cr Clr Drug Dosing ml/min Est GFR ( Amer) ml/min Est GFR (Non-Af Amer) ml/min BUN/Creatinine Ratio (10-20) Glucose (70-99) mg/dl POC Glucose (70-99) mg/dl Calcium (8.5-10.1) mg/dl Total Bilirubin 0.6 (0.2-1) mg/dl Lactate Dehydrogenase 189 (84-246) U/L Total Protein 7.3 (6.4-8.2) gm/dl Albumin 2.1 L (3.4-5.0) gm/dl Fluid Neutrophils % % Fluid Lymphocytes % % Fluid Eosinophils % % Fluid Basophils % % Fluid [place] % % Fluid Comment Pleural Fluid Source Pleural Color Pleural Appearance Pleural pH 7.27 L (7.3-7.4) Pleural WBC /uL Pleural RBC /uL Pleural Total Protein g/dl Pleural LDH U/L Pleural Glucose mg/dl Pleural Amylase U/L Pleural Cholesterol Random Vancomycin mcg/ml Diagnostic Findings Impressions Abdomen/Pelvis CT 04/06/21 14:27 CT SCAN OF THE CHEST, ABDOMEN, AND PELVIS WITHOUT IV CONTRAST CLINICAL HISTORY: Dyspnea. Pleural effusion. Generalized abdominal pain. End- stage renal disease. COMPARISON STUDY: Chest CT dated 10/10/2020. Abdominal CT dated 03/16/2021. TECHNIQUE: Unenhanced CT scan of the chest, abdomen, and pelvis was performed from the thoracic inlet to the proximal femora. Images are reviewed in the axial, sagittal, and coronal planes. IV contrast was not administered for this examination. Note that the examination is suboptimal without IV contrast. There is also motion artifact. A dose lowering technique was utilized adhering to the principles of ALARA. CT DOSE: 1540.54 mGy.cm FINDINGS: CHEST: Thyroid: Atrophic and heterogeneous. Thoracic aorta: The thoracic aorta is normal in caliber and demonstrates bovine variant arch anatomy. Heart: A right internal jugular central venous catheter is in place. The heart is mildly enlarged noting a small pericardial effusion. The coronary arteries and mitral annulus are densely calcified. There is diminished attenuation of the cardiac blood pool as compared to the myocardium suggesting anemia. Lungs and pleural spaces: Evaluation of the lung parenchyma is degraded by motion artifact. There is a moderate to large right pleural effusion with dense consolidation of the right lower lung. The right upper lobe remains partially aerated. Trace pleural effusion is seen on the left. Diffuse intralobular septal thickening is noted. Patchy air airspace opacities are seen throughout the left lung. There are scattered calcified granulomas. Mediastinum: There are numerous mildly enlarged mediastinal lymph nodes which measure up to 10 mm in short axis. [place]: Not well assessed without IV contrast. Axillae: There is no axillary lymphadenopathy. Bony thorax: The skeletal structures are heterogeneously osteopenic. Advanced arthritic changes seen in the shoulders. Spondylotic change is noted throughout the thoracic spine. No lytic or blastic lesions are identified. ABDOMEN AND PELVIS: Liver: The contrast-enhanced liver is normal in size, contour, and attenuation. There is no intrahepatic biliary ductal dilatation. Gallbladder: Unremarkable. Spleen: Normal in size and attenuation. Pancreas: The unenhanced pancreas is atrophic and grossly unremarkable. Adrenal glands: Unremarkable. Kidneys: The unenhanced kidneys are atrophic and without hydronephrosis. There are numerous renovascular calcifications seen bilaterally. No definite renal calculi are identified. Numerous cortical hypodensities likely represent cysts but cannot be definitively characterized. Abdominal vasculature: The abdominal aorta is normal in course and caliber noting advanced atherosclerotic calcification. Bowel: There is no bowel obstruction. Moderate fecal retention is noted throughout the colon The appendix is well-visualized and normal. Peritoneum: There is trace perihepatic and a small amount of pelvic ascites. No intraperitoneal free air is identified. Lymphadenopathy: There are numerous mildly enlarged retroperitoneal lymph nodes which measure up to 10 mm in short axis. Pelvic viscera: The bladder wall is thickened and there is pericystic inflammation. Uterine calcifications likely represent fibroids. No adnexal lesion is seen. Skeletal structures: The skeletal structures are heterogeneously osteopenic. There is mild to moderate lumbosacral spondylosis. No lytic or blastic lesions are seen. Soft tissues: There is body wall edema. IMPRESSION: 1. Moderate to large right pleural effusion with associated consolidation of the right lower lung. This likely resents a combination of atelectasis and pneumonia. Clinical correlation will be required. 2. There is trace left pleural effusion. 3. Cardiomegaly with intralobular septal thickening. Correlate clinically for evidence of fluid overload/congestive failure. 4. Patchy airspace opacities are seen throughout the aerated right upper lobe and the left lung. This could represent an infectious/inflammatory pneumonitis and/or pulmonary edema. Clinical correlation will be required. 5. Findings suggest cystitis. Correlate with clinical findings and urinalysis. 6. Trace perihepatic and small volume of pelvic ascites. 7. Anasarca of the body wall. 8. Moderate fecal retention is noted throughout the colon. 9. Mildly enlarged mediastinal and retroperitoneal lymph nodes are nonspecific and may be reactive. These are similar to recent prior studies. 10. Additional findings as above. ACT 112: Negative or not required by law. Electronically signed by: Phil Alfaro M.D. 04/06/2021 3:[address] 04/06/21 14:43 CT SCAN OF THE CHEST, ABDOMEN, AND PELVIS WITHOUT IV CONTRAST CLINICAL HISTORY: Dyspnea. Pleural effusion. Generalized abdominal pain. End- stage renal disease. COMPARISON STUDY: Chest CT dated 10/10/2020. Abdominal CT dated 03/16/2021. TECHNIQUE: Unenhanced CT scan of the chest, abdomen, and pelvis was performed from the thoracic inlet to the proximal femora. Images are reviewed in the axial, sagittal, and coronal planes. IV contrast was not administered for this examination. Note that the examination is suboptimal without IV contrast. There is also motion artifact. A dose lowering technique was utilized adhering to the principles of ALARA. CT DOSE: 1540.54 mGy.cm FINDINGS: CHEST: Thyroid: Atrophic and heterogeneous. Thoracic aorta: The thoracic aorta is normal in caliber and demonstrates bovine variant arch anatomy. Heart: A right internal jugular central venous catheter is in place. The heart is mildly enlarged noting a small pericardial effusion. The coronary arteries and mitral annulus are densely calcified. There is diminished attenuation of the cardiac blood pool as compared to the myocardium suggesting anemia. Lungs and pleural spaces: Evaluation of the lung parenchyma is degraded by motion artifact. There is a moderate to large right pleural effusion with dense consolidation of the right lower lung. The right upper lobe remains partially aerated. Trace pleural effusion is seen on the left. Diffuse intralobular septal thickening is noted. Patchy air airspace opacities are seen throughout the left lung. There are scattered calcified granulomas. Mediastinum: There are numerous mildly enlarged mediastinal lymph nodes which measure up to 10 mm in short axis. [place]: Not well assessed without IV contrast. Axillae: There is no axillary lymphadenopathy. Bony thorax: The skeletal structures are heterogeneously osteopenic. Advanced arthritic changes seen in the shoulders. Spondylotic change is noted throughout the thoracic spine. No lytic or blastic lesions are identified. ABDOMEN AND PELVIS: Liver: The contrast-enhanced liver is normal in size, contour, and attenuation. There is no intrahepatic biliary ductal dilatation. Gallbladder: Unremarkable. Spleen: Normal in size and attenuation. Pancreas: The unenhanced pancreas is atrophic and grossly unremarkable. Adrenal glands: Unremarkable. Kidneys: The unenhanced kidneys are atrophic and without hydronephrosis. There are numerous renovascular calcifications seen bilaterally. No definite renal calculi are identified. Numerous cortical hypodensities likely represent cysts but cannot be definitively characterized. Abdominal vasculature: The abdominal aorta is normal in course and caliber noting advanced atherosclerotic calcification. Bowel: There is no bowel obstruction. Moderate fecal retention is noted throughout the colon The appendix is well-visualized and normal. Peritoneum: There is trace perihepatic and a small amount of pelvic ascites. No intraperitoneal free air is identified. Lymphadenopathy: There are numerous mildly enlarged retroperitoneal lymph nodes which measure up to 10 mm in short axis. Pelvic viscera: The bladder wall is thickened and there is pericystic inflammation. Uterine calcifications likely represent fibroids. No adnexal lesion is seen. Skeletal structures: The skeletal structures are heterogeneously osteopenic. There is mild to moderate lumbosacral spondylosis. No lytic or blastic lesions are seen. Soft tissues: There is body wall edema. IMPRESSION: 1. Moderate to large right pleural effusion with associated consolidation of the right lower lung. This likely resents a combination of atelectasis and pneumonia. Clinical correlation will be required. 2. There is trace left pleural effusion. 3. Cardiomegaly with intralobular septal thickening. Correlate clinically for evidence of fluid overload/congestive failure. 4. Patchy airspace opacities are seen throughout the aerated right upper lobe and the left lung. This could represent an infectious/inflammatory pneumonitis and/or pulmonary edema. Clinical correlation will be required. 5. Findings suggest cystitis. Correlate with clinical findings and urinalysis. 6. Trace perihepatic and small volume of pelvic ascites. 7. Anasarca of the body wall. 8. Moderate fecal retention is noted throughout the colon. 9. Mildly enlarged mediastinal and retroperitoneal lymph nodes are nonspecific and may be reactive. These are similar to recent prior studies. 10. Additional findings as above. ACT 112: Negative or not required by law. Electronically signed by: Phil Alfaro M.D. 04/06/2021 3:25 PM Chest X-Ray 04/08/21 14:14 TWO VIEW CHEST CLINICAL HISTORY: Status post right-sided thoracentesis. FINDINGS: AP and lateral chest radiographs are compared to study dated 04/07/2021 and correlated with chest CT dated 04/06/2021. A right internal jugular central venous catheter is unchanged in position. The heart is enlarged. There is pulmonary vascular congestion. There is a small right pleural effusion with bibasilar consolidation. Trace pleural fluid is seen on the left. No pneumothorax is identified. The skeletal structures are osteopenic. The bony thorax appears intact. IMPRESSION: 1. Cardiomegaly with evidence of congestive failure. 2. Small right pleural effusion with right basilar consolidation. The right pleural effusion has decreased in size from prior studies. 3. No pneumothorax is identified. ACT 112: Negative or not required by law. Electronically signed by: Phil Alfaro M.D. 04/08/2021 3:42 PM Medications Administered Current Inpatient Medications Acetaminophen (Acetaminophen 325 Mg Tab) 650 mg PO Q4H PRN PRN Reason: Pain Stop: 05/07/21 09:02 Last Admin: 04/07/21 09:54 Dose: 650 mg Documented by: Acetaminophen (Acetaminophen 325 Mg Tab) 650 mg PO QID [facility] Stop: 05/07/21 20:59 Last Admin: 04/09/21 12:23 Dose: 650 mg Documented by: Albuterol (Albuterol Hfa 8 Gm Inhaler) 2 puffs INH Q6R PRN PRN Reason: Shortness Of Breath Or Wheezin Stop: 05/06/21 23:36 Apixaban (Apixaban 2.5 Mg Tab) 2.5 mg PO BID SANDIP Stop: 05/09/21 08:59 Last Admin: 04/09/21 11:10 Dose: Not Given Documented by: Calcium Acetate (Calcium Acetate 667 Mg Cap/Tab) 667 mg PO TIDM SANDIP Stop: 05/07/21 07:59 Last Admin: 04/09/21 12:25 Dose: 667 mg Documented by: Clonazepam (Clonazepam 0.5 Mg Tab) 0.5 mg PO BID PRN PRN Reason: Anxiety Stop: 05/08/21 17:27 Last Admin: 04/09/21 08:32 Dose: 0.5 mg Documented by: Dextrose (Dextrose 50% 50 Ml Syringe) 25 - 50 ml IV UD PRN; Protocol PRN Reason: Hypoglycemia Protocol Stop: 05/07/21 03:51 Diclofenac Sodium (Diclofenac Sod 1% Gel 100 Gm Tube) 2 gm EXT QID [facility]ANDIP Stop: 05/07/21 20:59 Last Admin: 04/09/21 12:26 Dose: 2 gm Documented by: Epoetin Nelson (Epoetin Nelson 10,000 Units/Ml Vial) 10,000 units IV 0700 [facility] Stop: 04/09/21 14:00 Fluticasone Furoate (Fluticasone Furoate 100mcg 14 Puffs/Inhaler) 1 puffs INH DAILY SANDIP; Protocol Stop: 05/07/21 08:59 Last Admin: 04/09/21 08:37 Dose: 1 puffs Documented by: Glucagon (Glucagon For Inj 1 Mg Vial) 1 mg SQ UD PRN; Protocol PRN Reason: Hypoglycemia Protocol Stop: 05/07/21 03:51 Glucose (Glucose 10 Tabs/Tube) 4 - 8 tabs PO UD PRN; Protocol PRN Reason: Hypoglycemia Protocol Stop: 05/07/21 03:51 Glucose (Glucose 40% Gel 15 Gm Tube) 15 - 30 gm PO UD PRN; Protocol PRN Reason: Hypoglycemia Protocol Stop: 05/07/21 03:51 Guaifenesin (Guaifenesin 600 Mg Tabcr) 600 mg PO BID [facility] Stop: 05/07/21 00:00 Last Admin: 04/09/21 08:35 Dose: 600 mg Documented by: Piperacillin Sod/Tazobactam (Sod 3.375 gm/ Dextrose) 115 mls @ 28.75 mls/hr IV Q12H [facility]; Protocol Stop: 04/14/21 05:59 Last Admin: 04/09/21 12:20 Dose: 28.8 mls/hr Documented by: Sodium Chloride (Nss 1000ml) 1,000 mls @ 0 mls/hr IV .Q0M PRN PRN Reason: For Hemodialysis Use ONLY Stop: 04/09/21 12:59 Insulin Aspart (Insulin Aspart 100 Units/Ml 3 Ml Pen) 0 units SC ACHS [facility]ANDIP Stop: 05/07/21 07:29 Last Admin: 04/09/21 12:28 Dose: 5 units Documented by: Insulin Glargine (Insulin Glargine Solostar 100 Units/Ml 3 Ml Pen) 15 units SC DAILY [facility] Stop: 05/07/21 08:59 Last Admin: 04/09/21 08:38 Dose: 15 units Documented by: Lactulose (Lactulose Syrup 20 Gm/30 Ml Udc) 20 gm PO DAILY S[facility]IP Stop: 05/07/21 08:59 Last Admin: 04/09/21 08:34 Dose: 20 gm Documented by: Lidocaine (Lidocaine 5% 1 Patch) 1 patch TD HS [facility]IP Stop: 05/07/21 20:59 Last Admin: 04/08/21 20:58 Dose: 1 patch Documented by: Metoprolol Succinate (Metoprolol Succ 50mg Ext Rel Tab) 50 mg PO BID [facility] Stop: 05/07/21 00:00 Last Admin: 04/09/21 08:34 Dose: 50 mg Documented by: Miscellaneous (Carbohydrates For Hypoglycemia ) 15 - 30 gm PO UD PRN PRN Reason: Hypoglycemia Protocol Stop: 05/07/21 03:51 Miscellaneous (Remove Lidoderm Patch) 1 ea N/A DAILY@0900 [facility] Stop: 05/08/21 08:59 Last Admin: 04/09/21 08:46 Dose: 1 ea Documented by: Miscellaneous Information (Vancomycin Consult Active) 1 ea N/A UD PRN PRN Reason: Consult Stop: 05/06/21 23:36 Miscellaneous Information (Piperacill/Tazobac Consult Active) 1 ea N/A UD PRN PRN Reason: Consult Stop: 05/06/21 23:36 Ondansetron HCl (Ondansetron Inj 2 Mg/Ml 2 Ml Vial) 4 mg IV Q6H PRN PRN Reason: Nausea Stop: 05/06/21 23:36 Last Admin: 04/07/21 21:49 Dose: 4 mg Documented by: Oxycodone HCl (Oxycodone Hcl Ir 5 Mg Tab (Immediate Release)) 5 mg PO Q4 PRN PRN Reason: Pain moderate Stop: 04/21/21 19:22 Last Admin: 04/09/21 12:22 Dose: 5 mg Documented by: Oxycodone HCl (Oxycodone Hcl Ir 5 Mg Tab (Immediate Release)) 10 mg PO Q4 PRN PRN Reason: severe pain Stop: 04/21/21 19:22 Last Admin: 04/08/21 22:28 Dose: 10 mg Documented by: Pantoprazole Sodium (Pantoprazole 40 Mg Tab) 40 mg PO DAILY SANDIP; Protocol Stop: 05/07/21 08:59 Last Admin: 04/09/21 08:35 Dose: 40 mg Documented by: Polyethylene Glycol (Polyethylene (Miralax) 17 Gm Pack) 17 gm PO DAILY [facility]IP Stop: 05/07/21 08:59 Last Admin: 04/09/21 08:38 Dose: Not Given Documented by: Trazodone HCl (Trazodone Hcl 50 Mg Tab) 50 mg PO HS [facility]ANDIP Stop: 05/07/21 20:59 Last Admin: 04/08/21 20:55 Dose: 50 mg Documented by: Umeclidinium/Vilanterol (Umeclidinium/Vilanterol 62.5/25mcg 7 Puffs/Inhaler) 1 puffs INH DAILY SANDIP; Protocol Stop: 05/07/21 08:59 Last Admin: 04/09/21 08:37 Dose: 1 puffs Documented by: Vitamin B Complex/Folic Acid (Nephrocaps) 1 cap PO QAM SANDIP Stop: 05/07/21 08:59 Last Admin: 04/09/21 08:33 Dose: 1 cap Documented by: Ziprasidone (Ziprasidone Hcl 20 Mg Cap) 20 mg PO BID SANDIP Stop: 05/07/21 00:00 Last Admin: 04/09/21 08:36 Dose: 20 mg Documented by: Resident Activity Tracking Resident Involvement: Resident Care Provided Care Provided: Adult [facility]
[2021-04-09] MEDS: DICLOFENAC SOD 1% GEL 100 GM TUBE EXT SCH ×4 (08:46→21:24)
[2021-04-09] MEDS: APIXABAN 2.5 MG TAB PO SCH ×2 (11:10→21:24)
--- NOTE | 2021-04-09 11:28 | Nephrology Progress Note ---
Date of Service April 09, 2021 Assessment & Plan (1) ESRD (end stage renal disease) on dialysis: (2) Pleural effusion: (3) Acute on chronic respiratory failure with hypoxemia: (4) Chronic anemia: Plan: 60-year-old female with end-stage renal disease secondary to diabetic nephropathy and ATN with non recovery. has been on dialysis Sunday at [facility]. Admitted to the hospital with respiratory failure secondary to large right pleural effusion. Had paracentesis yesterday with improvement in respiratory status. She has also been getting dialysis with mom almost 3-4 liters of UF. She continues to have significant lower extremity edema which has been chronic and most likely secondary to hypoalbuminemia as well. -- Plan for dialysis this afternoon, UF 3 L, challenge EDW -- will give JAYNE 28578 units with HD today. -- encourage protein intake -- dose medications for GFR less than 10 will follow Admission and Anticipated Discharge Date Admission Date: April 06, 2021 Miriam Teague was seen in her room this morning, she was sleepy and lethargic but easily awoke up and answer question appropriately. This is howf most of the time she is and she seems to be at her baseline. His electrolyte acceptable. Blood pressure acceptable. No shortness of breath or chest pain. Had right-s ided pleural tap yesterday. Review of Systems Review of Systems: Details review of system was otherwise unremarkable. Physical Exam Constitutional: + ill appearing and + lethargic; no acute distress Respiratory: Auscultation: + diminished lung sounds Cardiovascular: RRR, no murmur, no edema Extremities: + edema Neurologic: moves all extremities and awake; not confused Psychiatric: A+Ox3, euthymic affect Results & Data ([facility]) Vital Signs (Past 12 Hours) Vital Signs Temp Pulse Pulse Resp BP Pulse Ox 04/09/21 07:25 37.0 C 92 H 20 104/72 96 04/09/21 04:23 36.8 C 69 18 102/69 100 04/08/21 23:45 77 04/08/21 23:39 36.6 C 77 18 98/63 L 97 PG Care Time/CCT Total # of Minutes Spent Total Time Spent with Patient: Total time spent is greater than 50% in coordination of care (as documented) at patient's floor/unit and/or counseling patient: Coding Level of Care Code 72478 Subseq Hosp Care Lvl 3 Diagnoses ESRD (end stage renal disease) on dialysis N18.6; Z99.2 Pleural effusion J90 Acute on chronic respiratory failure with hypoxemia J96.21 Chronic anemia D64.9
[2021-04-09] MEDS ORDERED: EPOETIN ALFA 10,000 UNITS/ML VIAL IV STA (11:29)
[2021-04-09] MEDS: PIPERACILLIN/TAZOBACTAM 3.375 GM in DEXTROSE 5% 100 ML IV SCH (12:20)
[2021-04-09] MEDS: oxyCODONE HCL IR 5 MG TAB (IMMEDIATE RELEASE) PO PRN ×2 (12:22→21:23)
[2021-04-09] MEDS ORDERED: NALOXONE HCL 0.4 MG/1 ML VIAL/CARP IV ONE (14:36)
[2021-04-09] MEDS ORDERED: SODIUM CHLORIDE 0.9% 10ML FLUSH IV ONE (14:36)
--- NOTE | 2021-04-09 16:24 | Pharmacy Report ---
Pharmacy Abx Dose Short Note - Date of Service April 09, 2021 - Assessment & Plan Assessment 60 year old F started on Vancomycin and Zosyn for pneumonia * PMHx significant for ESRD on HD TTS, COPD, T2DM, R BKA. * Blood culture - NGTD. Pleural fluid culture pending. * MRSA nasal swab Positive Plan Vancomycin * Random level drawn this AM of 18.2mcg/mL is therapeutic and within goal to re- dose post dialysis. * Continue to dose vancomycin by levels post HD. Plan to re-dose with vancomycin after dialysis session this afternoon. * Goal trough level for pneumonia: 15-20mcg/mL * Random level to be ordered prior to next HD session. Pharmacy will continue to follow and will adjust dose/frequency as necessary. Thank you.
--- NOTE | 2021-04-09 18:56 | Billing Data ---
Date of Service April 09, 2021 Coding Level of Care Code 32360 Subseq Hosp Care Lvl 1
--- NOTE | 2021-04-09 19:04 | Hospitalist Progress Note ---
Date of Service April 08, 2021 late entry - unfortunately pt originally seen by myself in conjunction w Dr Combs, resident, but note disappeared Assessment & Plan (1) Pleural effusion: Plan: Patient is a 60 year old female with PMHx ESRD on dialysis, diastolic CHF, COPD, DM2, who presents with chief complaint of worsening shortness of breath. SOB secondary to R pleural effusion and PNA -Probably parapneumonic effusion now status post thoracentesis -With chest pain or shortness of breathclinically at the bedside, given that she had good breath sounds at a pulse ox of 96 to 98% on her normal oxygen, I strongly suspected pain from the procedure and a degree of anxiety, chest x-ray was done and confirmed no new findings/no pneumothorax, and improved aeration -Continue antibiotics. Acutely pain control and reassurance. Suspect UTI -Possible UTI versus asymptomatic bacteriuria. Academic point, given that she needs to be on antibiotics for above. Acute on chronic HFpEF -Appears fairly compensated. Paroxysmal AFib -Rate controlled, normally anticoagulated (briefly held for procedureresume after) Hypertension -Continue to follow pressures COPD -Continue Mucinex -Continue Anoro Ellipta -Continue Arnuity Ellipta ESRD on Dialysis -Dialysis T, Th, Sat -Nephrology consulted -Continue Phoslo -Nephrocaps QD Bipolar disorder -Continue home Ziprasidone -Continue home Trazodone Dispo: For return to SNF once clearly more medically stable FEN: Dialysis renal, DM2 diet, fluid restrict 1800ml DVT: eliquis Code: Full (2) Diastolic CHF, acute on chronic: (3) ESRD (end stage renal disease) on dialysis: (4) Pneumonia: (5) SOB (shortness of breath): Admission and Anticipated Discharge Date Admission Date: April 06, 2021 Subjective Patient seen by student/resident both prior to thoracentesis, seen by medical student along with pulmonary during thoracentesis. Seen by myself after. After thoracentesis, patient was complaining of chest pain or shortness of breath. Hard to describe, seem to be more pain than true air hunger, although sh e would endorse both. Also noted anxiety Review of Systems Review of Systems: All systems reviewed & are unremarkable except as noted in HPI & below Physical Exam Physical Exam: In general she is awake and alert anxious calling out but s howing no conversational dyspnea. HEENT normocephalic atraumatic mucous membranes moist. Cardio is distant. Lungs are coarse bilaterallywhich I recall is largely a normal variant for herbut good air entry diffusely globally, no focal findings, good effort. No accessory muscle use. Skin shows no rashes, pallor, icterus. Results & Data Results & Data ([facility]) Vital Signs (Past 12 Hours) Vital Signs Temp Pulse Pulse Resp BP BP Pulse Ox 04/09/21 18:40 83 90/61 L 04/09/21 18:20 84 104/65 04/09/21 18:00 85 109/64 04/09/21 17:40 85 106/62 04/09/21 17:20 84 107/71 04/09/21 17:00 81 114/68 04/09/21 16:47 98.2 F 85 04/09/21 15:30 98.6 F 98 H 19 135/92 98 04/09/21 07:25 98.6 F 92 H 20 104/72 96 PG Care Time/CCT Total # of Minutes Spent Total Time Spent with Patient: Total time spent is greater than 50% in coordination of care (as documented) at patient's floor/unit and/or counseling patient: Coding Level of Care Code 42078 Subseq Hosp Care Lvl 3 Diagnoses Pleural effusion J90 Diastolic CHF, acute on chronic I50.33 ESRD (end stage renal disease) on dialysis N18.6; Z99.2 Pneumonia J18.9 SOB (shortness of breath) R06.02
[2021-04-09] MEDS: LIDOCAINE 5% 1 PATCH TD SCH (21:31)
[2021-04-09] MEDS: traZODone HCL 50 MG TAB PO SCH (21:32)
[2021-04-09] MEDS ORDERED: VANCOMYCIN HCL 500 MG in SODIUM CHLORIDE 0.9% 250 ML IV ONE (22:00)
[2021-04-09] MEDS ORDERED: NALOXONE HCL 0.4 MG/1 ML VIAL/CARP IV PRN (22:57)
[2021-04-09] MEDS ORDERED: NALOXONE HCL 0.4 MG/1 ML VIAL/CARP IV STA (23:12)
--- NOTE | 2021-04-09 23:12 | Communication Note ---
Date of Service: April 09, 2021 Patient code purple at 22:43 called for reduced consciousness and significantly reduced respiratory rate. Presented to patient's room with where patient was responsive to pain, but consciousness significantly reduced. Pads were placed on patient and EKG taken showing NSR. Patient hypotensive in the low 80/50's. She had dialysis stopped earlier today early secondary to hypotension. She had received 10mg oxycodone roughly 1 hour prior to the code purple and reduced consciousness. PE: Patient with reduced consciousness, unable to follow commands, reactive to painful stimuli Heart RRR Lungs course with crackles throughout on anterior shepherd Plan: -Patient was placed initially on oxymask followed by bipap for a short duration before resuming oxymask -Patient given naloxone at which point she rapidly recovered over the course of minutes -Suspect that her reduced conciousness was due to over sedation and respiratory depression from opioids -Will hold further sedating medications at this time -PRN Naloxone ordered - monitor for return of symptoms -CXR ordered - pending Resident Activity Tracking Resident Involvement: Resident Care Provided and Shift Supervisor Coverage Note Care Provided: Adult Hospital Medicine
[2021-04-10] MEDS: PIPERACILLIN/TAZOBACTAM 3.375 GM in DEXTROSE 5% 100 ML IV SCH ×3 (01:46→23:08)
[2021-04-10 06:53] LABS: Hematocrit (blood only) 29.1 % (37-47); Hemoglobin 8.8 g/dL (12.0-16.0); Mean Corpuscular Hgb Conc 30.2 g/dL (32-36); Mean Corpuscular Volume 99.3 fL (80-100); Nucleated RBC # (auto) 0.04 K/uL (0-0); Nucleated RBC % (auto) 0.3 %; Platelet Count 228 K/uL (130-400); RDW Coefficient of Variation 17.6 % (11.5-14.5); RDW Standard Deviation 61.9 fL (36.4-46.3); Red Blood Count 2.93 M/uL (4.2-5.4); White Blood Count 11.58 K/uL (4.8-10.8)
[2021-04-10 07:15] LABS: Calcium 8.1 mg/dl (8.5-10.1); Creatinine Clr Calc Pharmacy 23.3 ml/min; Est GFR (African American) 18.7 ml/min; Est GFR (Non-African American) 16.1 ml/min; Potassium 4.5 mmol/L (3.5-5.1)
--- NOTE | 2021-04-10 07:29 | Hospitalist Progress Note ---
Date of Service April 10, 2021 Assessment & Plan (1) Pleural effusion: Plan: Patient is a 60 year old female with PMHx ESRD on dialysis, diastolic CHF, COPD, DM2, who presents with chief complaint of worsening shortness of breath. SOB secondary to R pleural effusion and PNA -CTA chest noting moderate to large R pleural effusion with associated consolidation of RLL in addition to cardiomegaly and intralobular septal thickening concerning for overload. -Continue Zosyn, vancomycin being titrated by pharmacy -Thoracocentesis performed by pulmonology 04/08, 1550cc dark cloudy fluid, transudative -04/09 overnight patient experienced opioid overdose respiratory depression reversed with naloxone, BP soft post dialsis given 500cc NS, repeat Chest XR demonstrated slight increase in R pleural effusion and persistent pulmonary edema compared to post thoracentesis XR. Patient currently on 3L NC no complaints SOB -Nephrology plans dialysis tomorrow, if this does not improve her pleural effusion oxygenation will consult pulmonology regarding possible repeat thoracentesis. Polypharmacy -04/09 patient overdosed on 10mg oxycodone which patient states is part of her home medication regiment, reversed symptoms with naloxone -have d/c'd 10mg oxycodone q4hr PRN, continue 5mg oxycodone q4hr PRN for now to prevent withdrawal with plans to wean off further -added topical pain management voltaren gel lidocaine patch to reduce opioid pain management -plan to monitor clonazepam 0.5mg BID PRN usage and will gradually wean down, as her anxiety may actually be benzo withdrawal Elevated WBC -WBC count elevated from 8.14 to 11.58 borderline elevated -reviewed patient history, abx, chest XR. -based on hospital abx data patient's PNA is most likely adequately covered by current abx. Patient's chest XR demonstrated recurrent pleural effusion, given that and her overnight event her elevated WBC may be secondary to stress. -will continue to monitor Suspect UTI -CT ab/pelv with findings suggestive of cystitis, UA with epithelial cells concerning for contamination. -Difficult to correlate symptoms due to patients awareness and lack of urination -Coverage with Zosyn as above Acute on chronic HFpEF -In acute exacerbation, BNP >35k -Unfortunately minimal urine output -Nephrology scheduling dialysis sunday, 1.7L removed Sunday additional dialysis scheduled for tomorrow Paroxysmal AFib -Eliquis was held for thoracentesis, resumed 04/09, on hold currently in case repeat thoracentesis tomorrow -Continue Toprol 50mg BID Hypertension -With relatively soft pressures systolic 90's overnight given 500cc bolus NS, currently 122/85 -Will hold Hydralazine at this time -Continue Metoprolol -Hold ASA COPD -Continue Mucinex -Continue Anoro Ellipta -Continue Arnuity Ellipta ESRD on Dialysis -Dialysis T, Th, Sat, extra dialysis scheduled for tomorrow -Nephrology consulted -Continue Phoslo -Nephrocaps QD Bipolar disorder -Continue home Ziprasidone -Continue home Trazodone Dispo: M/S Telemetry FEN: Dialysis renal, DM2 diet, fluid restrict 1800ml DVT: eliquis on hold Code: Full (2) Diastolic CHF, acute on chronic: (3) ESRD (end stage renal disease) on dialysis: (4) Pneumonia: (5) SOB (shortness of breath): (6) Polypharmacy: (7) Elevated WBC count: Admission and Anticipated Discharge Date Admission Date: April 06, 2021 Supervising Physician Co-Signing Physician Notes I personally examined the patient and verified all senior points of history and exam, discussed case, and agree with decision making with Dr Rondon. breathing/cp about the same. no new complaints otherwise. asks for narcotics. Vitals noted, in general she is sleeping comfortably no distress. HEENT normocephalic atraumatic mucous membranes moist. Breathing unlabored no accessory muscle use good effort. Skin shows no rashes no pallor or icterus. Pneumonia/parapneumonic effusionseems overall stable but unfortunately effusion returned. pain - ?post thora, ?anxiety, ?both. continue to follow. pulm re- eval for effusion. more HD for volume status ESRDHD Otherwise as above. Subjective 60yo Female with PMH ESRD on dialysis, diastolic CHF, COPD, DM2, here with SOB PNA pleural effusion. As of last night patient was given 10mg oxycodone and experienced respiratory depression RR6 somnolent soft BP post dialysis, Dr. Arauz gave her a 500cc bolus NS, naloxone, and oxymask/bipap, patient recovered from sedation and respiratory depression and wanted the oxymask removed. A chest xray was ordered showing return of pleural effusion. Patient seen at bedside tolerating 3L NC O2 sat 99%, awake. Patient complains of chest pain and tightness unchanged ever since she had her thoracentesis 2 days ago, no pain on palpation. She states she slept well, has no trouble breathing no SOB, good appetite. Review of Systems Review of Systems: Positive chest pain Negative fever chills Negative headache dizziness Negative palpitations SOB Negative nausea vomitting diarrhea constipation Negative rash Physical Exam Constitutional: average body habitus and cooperative Respiratory: normal respiratory effort Auscultation: + crackles (bilateral lower lobes) Cardiovascular: Rate/Rhythm: regular rate and regular rhythm Heart Sounds: normal S1 and normal S2; no gallop, no murmur and no cardiac rub Extremities: + edema (bilateral lower extremities up to hip) Musculoskeletal: BKA R leg, left toe amputated Results & Data Results & Data ([facility]) Vital Signs (Past 12 Hours) Vital Signs Temp Pulse Pulse Pulse Resp BP BP 04/10/21 03:35 37.0 C 82 20 118/75 04/09/21 22:45 22 04/09/21 20:15 36.8 C 85 119/73 04/09/21 20:10 90 04/09/21 19:40 85 109/76 Pulse Ox 04/10/21 03:35 96 04/09/21 22:45 97 04/09/21 20:15 04/09/21 20:10 04/09/21 19:40 Laboratory Results 04/10/21 04/10/21 04/10/21 Range/Units 11:33 07:38 06:36 WBC (4.8-10.8) K/uL RBC (4.2-5.4) M/uL Hgb (12.0-16.0) g/dL Hct (37-47) % MCV (80-100) fL MCH (25-34) pg MCHC (32-36) g/dL RDW Std Deviation (36.4-46.3) fL RDW Coeff of Esa (11.5-14.5) % Plt Count (130-400) K/uL MPV (7.4-10.4) fL Absolute Nucleated RBC (0-0) K/uL Nucleated RBC % (auto) % Sodium 132 L (136-145) mmol/L Potassium 4.5 (3.5-5.1) mmol/L Chloride 101 (98-107) mmol/L Carbon Dioxide 24 (21-32) mmol/L Anion Gap 7.0 (3-11) BUN 18 (7-18) mg/dl Creatinine 3.05 H D (0.6-1.2) mg/dl Est Cr Clr Drug Dosing 23.3 ml/min Est GFR ( Amer) 18.7 ml/min Est GFR (Non-Af Amer) 16.1 ml/min BUN/Creatinine Ratio 6.0 L (10-20) Glucose 265 H (70-99) mg/dl POC Glucose 265 H 291 H (70-99) mg/dl Calcium 8.1 L (8.5-10.1) mg/dl 04/10/21 04/09/21 04/09/21 Range/Units 06:36 21:17 20:38 WBC 11.58 H (4.8-10.8) K/uL RBC 2.93 L (4.2-5.4) M/uL Hgb 8.8 L (12.0-16.0) g/dL Hct 29.1 L (37-47) % MCV 99.3 (80-100) fL MCH 30.0 (25-34) pg MCHC 30.2 L (32-36) g/dL RDW Std Deviation 61.9 H (36.4-46.3) fL RDW Coeff of Sea 17.6 H (11.5-14.5) % Plt Count 228 (130-400) K/uL MPV 9.0 (7.4-10.4) fL Absolute Nucleated RBC 0.04 H (0-0) K/uL Nucleated RBC % (auto) 0.3 % Sodium (136-145) mmol/L Potassium (3.5-5.1) mmol/L Chloride (98-107) mmol/L Carbon Dioxide (21-32) mmol/L Anion Gap (3-11) BUN (7-18) mg/dl Creatinine (0.6-1.2) mg/dl Est Cr Clr Drug Dosing ml/min Est GFR ( Amer) ml/min Est GFR (Non-Af Amer) ml/min BUN/Creatinine Ratio (10-20) Glucose (70-99) mg/dl POC Glucose 202 H 236 H (70-99) mg/dl Calcium (8.5-10.1) mg/dl 04/09/21 Range/Units 16:23 WBC (4.8-10.8) K/uL RBC (4.2-5.4) M/uL Hgb (12.0-16.0) g/dL Hct (37-47) % MCV (80-100) fL MCH (25-34) pg MCHC (32-36) g/dL RDW Std Deviation (36.4-46.3) fL RDW Coeff of Esa (11.5-14.5) % Plt Count (130-400) K/uL MPV (7.4-10.4) fL Absolute Nucleated RBC (0-0) K/uL Nucleated RBC % (auto) % Sodium (136-145) mmol/L Potassium (3.5-5.1) mmol/L Chloride (98-107) mmol/L Carbon Dioxide (21-32) mmol/L Anion Gap (3-11) BUN (7-18) mg/dl Creatinine (0.6-1.2) mg/dl Est Cr Clr Drug Dosing ml/min Est GFR ( Amer) ml/min Est GFR (Non-Af Amer) ml/min BUN/Creatinine Ratio (10-20) Glucose (70-99) mg/dl POC Glucose 197 H (70-99) mg/dl Calcium (8.5-10.1) mg/dl Diagnostic Findings Impressions Abdomen/Pelvis CT 04/06/21 14:27 CT SCAN OF THE CHEST, ABDOMEN, AND PELVIS WITHOUT IV CONTRAST CLINICAL HISTORY: Dyspnea. Pleural effusion. Generalized abdominal pain. End- stage renal disease. COMPARISON STUDY: Chest CT dated 10/10/2020. Abdominal CT dated 03/16/2021. TECHNIQUE: Unenhanced CT scan of the chest, abdomen, and pelvis was performed from the thoracic inlet to the proximal femora. Images are reviewed in the axial, sagittal, and coronal planes. IV contrast was not administered for this examination. Note that the examination is suboptimal without IV contrast. There is also motion artifact. A dose lowering technique was utilized adhering to the principles of ALARA. CT DOSE: 1540.54 mGy.cm FINDINGS: CHEST: Thyroid: Atrophic and heterogeneous. Thoracic aorta: The thoracic aorta is normal in caliber and demonstrates bovine variant arch anatomy. Heart: A right internal jugular central venous catheter is in place. The heart is mildly enlarged noting a small pericardial effusion. The coronary arteries and mitral annulus are densely calcified. There is diminished attenuation of the cardiac blood pool as compared to the myocardium suggesting anemia. Lungs and pleural spaces: Evaluation of the lung parenchyma is degraded by motion artifact. There is a moderate to large right pleural effusion with dense consolidation of the right lower lung. The right upper lobe remains partially aerated. Trace pleural effusion is seen on the left. Diffuse intralobular septal thickening is noted. Patchy air airspace opacities are seen throughout the left lung. There are scattered calcified granulomas. Mediastinum: There are numerous mildly enlarged mediastinal lymph nodes which measure up to 10 mm in short axis. Willow: Not well assessed without IV contrast. Axillae: There is no axillary lymphadenopathy. Bony thorax: The skeletal structures are heterogeneously osteopenic. Advanced arthritic changes seen in the shoulders. Spondylotic change is noted throughout the thoracic spine. No lytic or blastic lesions are identified. ABDOMEN AND PELVIS: Liver: The contrast-enhanced liver is normal in size, contour, and attenuation. There is no intrahepatic biliary ductal dilatation. Gallbladder: Unremarkable. Spleen: Normal in size and attenuation. Pancreas: The unenhanced pancreas is atrophic and grossly unremarkable. Adrenal glands: Unremarkable. Kidneys: The unenhanced kidneys are atrophic and without hydronephrosis. There are numerous renovascular calcifications seen bilaterally. No definite renal calculi are identified. Numerous cortical hypodensities likely represent cysts but cannot be definitively characterized. Abdominal vasculature: The abdominal aorta is normal in course and caliber noting advanced atherosclerotic calcification. Bowel: There is no bowel obstruction. Moderate fecal retention is noted throughout the colon The appendix is well-visualized and normal. Peritoneum: There is trace perihepatic and a small amount of pelvic ascites. No intraperitoneal free air is identified. Lymphadenopathy: There are numerous mildly enlarged retroperitoneal lymph nodes which measure up to 10 mm in short axis. Pelvic viscera: The bladder wall is thickened and there is pericystic inflammation. Uterine calcifications likely represent fibroids. No adnexal lesion is seen. Skeletal structures: The skeletal structures are heterogeneously osteopenic. There is mild to moderate lumbosacral spondylosis. No lytic or blastic lesions are seen. Soft tissues: There is body wall edema. IMPRESSION: 1. Moderate to large right pleural effusion with associated consolidation of the right lower lung. This likely resents a combination of atelectasis and pneumonia. Clinical correlation will be required. 2. There is trace left pleural effusion. 3. Cardiomegaly with intralobular septal thickening. Correlate clinically for evidence of fluid overload/congestive failure. 4. Patchy airspace opacities are seen throughout the aerated right upper lobe and the left lung. This could represent an infectious/inflammatory pneumonitis and/or pulmonary edema. Clinical correlation will be required. 5. Findings suggest cystitis. Correlate with clinical findings and urinalysis. 6. Trace perihepatic and small volume of pelvic ascites. 7. Anasarca of the body wall. 8. Moderate fecal retention is noted throughout the colon. 9. Mildly enlarged mediastinal and retroperitoneal lymph nodes are nonspecific and may be reactive. These are similar to recent prior studies. 10. Additional findings as above. ACT 112: Negative or not required by law. Electronically signed by: Phil Alfaro M.D. 04/06/2021 3:[address] 04/06/21 14:43 CT SCAN OF THE CHEST, ABDOMEN, AND PELVIS WITHOUT IV CONTRAST CLINICAL HISTORY: Dyspnea. Pleural effusion. Generalized abdominal pain. End- stage renal disease. COMPARISON STUDY: Chest CT dated 10/10/2020. Abdominal CT dated 03/16/2021. TECHNIQUE: Unenhanced CT scan of the chest, abdomen, and pelvis was performed from the thoracic inlet to the proximal femora. Images are reviewed in the axial, sagittal, and coronal planes. IV contrast was not administered for this examination. Note that the examination is suboptimal without IV contrast. There is also motion artifact. A dose lowering technique was utilized adhering to the principles of ALARA. CT DOSE: 1540.54 mGy.cm FINDINGS: CHEST: Thyroid: Atrophic and heterogeneous. Thoracic aorta: The thoracic aorta is normal in caliber and demonstrates bovine variant arch anatomy. Heart: A right internal jugular central venous catheter is in place. The heart is mildly enlarged noting a small pericardial effusion. The coronary arteries and mitral annulus are densely calcified. There is diminished attenuation of the cardiac blood pool as compared to the myocardium suggesting anemia. Lungs and pleural spaces: Evaluation of the lung parenchyma is degraded by motion artifact. There is a moderate to large right pleural effusion with dense consolidation of the right lower lung. The right upper lobe remains partially aerated. Trace pleural effusion is seen on the left. Diffuse intralobular septal thickening is noted. Patchy air airspace opacities are seen throughout the left lung. There are scattered calcified granulomas. Mediastinum: There are numerous mildly enlarged mediastinal lymph nodes which measure up to 10 mm in short axis. Willow: Not well assessed without IV contrast. Axillae: There is no axillary lymphadenopathy. Bony thorax: The skeletal structures are heterogeneously osteopenic. Advanced arthritic changes seen in the shoulders. Spondylotic change is noted throughout the thoracic spine. No lytic or blastic lesions are identified. ABDOMEN AND PELVIS: Liver: The contrast-enhanced liver is normal in size, contour, and attenuation. There is no intrahepatic biliary ductal dilatation. Gallbladder: Unremarkable. Spleen: Normal in size and attenuation. Pancreas: The unenhanced pancreas is atrophic and grossly unremarkable. Adrenal glands: Unremarkable. Kidneys: The unenhanced kidneys are atrophic and without hydronephrosis. There are numerous renovascular calcifications seen bilaterally. No definite renal calculi are identified. Numerous cortical hypodensities likely represent cysts but cannot be definitively characterized. Abdominal vasculature: The abdominal aorta is normal in course and caliber noting advanced atherosclerotic calcification. Bowel: There is no bowel obstruction. Moderate fecal retention is noted througho ut the colon The appendix is well-visualized and normal. Peritoneum: There is trace perihepatic and a small amount of pelvic ascites. No intraperitoneal free air is identified. Lymphadenopathy: There are numerous mildly enlarged retroperitoneal lymph nodes which measure up to 10 mm in short axis. Pelvic viscera: The bladder wall is thickened and there is pericystic inflammation. Uterine calcifications likely represent fibroids. No adnexal lesion is seen. Skeletal structures: The skeletal structures are heterogeneously osteopenic. There is mild to moderate lumbosacral spondylosis. No lytic or blastic lesions are seen. Soft tissues: There is body wall edema. IMPRESSION: 1. Moderate to large right pleural effusion with associated consolidation of the right lower lung. This likely resents a combination of atelectasis and pneumonia. Clinical correlation will be required. 2. There is trace left pleural effusion. 3. Cardiomegaly with intralobular septal thickening. Correlate clinically for evidence of fluid overload/congestive failure. 4. Patchy airspace opacities are seen throughout the aerated right upper lobe and the left lung. This could represent an infectious/inflammatory pneumonitis and/or pulmonary edema. Clinical correlation will be required. 5. Findings suggest cystitis. Correlate with clinical findings and urinalysis. 6. Trace perihepatic and small volume of pelvic ascites. 7. Anasarca of the body wall. 8. Moderate fecal retention is noted throughout the colon. 9. Mildly enlarged mediastinal and retroperitoneal lymph nodes are nonspecific and may be reactive. These are similar to recent prior studies. 10. Additional findings as above. ACT 112: Negative or not required by law. Electronically signed by: Phil Alfaro M.D. 04/06/2021 3:25 PM Chest X-Ray 04/09/21 23:12 XR chest 1V portable CLINICAL HISTORY: Shortness of breath. COMPARISON STUDY: Chest CT April 06, 2021. Chest radiograph April 08, 2021. FINDINGS: A dual lumen right internal jugular central line remains in place. There is no pneumothorax. Small right pleural effusion has slightly increased. Right basilar opacity has slightly increased. There is persistent pulmonary edema. Cardiomegaly is again noted. IMPRESSION: 1. Persistent pulmonary edema. 2. Slight increase in size of a small right pleural effusion with right basilar opacity. ACT 112: Negative or not required by law. Electronically signed by: Scott Madrigal M.D. 04/10/2021 8:34 AM Medications Administered Current Inpatient Medications Acetaminophen (Acetaminophen 325 Mg Tab) 650 mg PO Q4H PRN PRN Reason: Pain Stop: 05/07/21 09:02 Last Admin: 04/07/21 09:54 Dose: 650 mg Documented by: Acetaminophen (Acetaminophen 325 Mg Tab) 650 mg PO QID [facility] Stop: 05/07/21 20:59 Last Admin: 04/10/21 12:38 Dose: 650 mg Documented by: Albuterol (Albuterol Hfa 8 Gm Inhaler) 2 puffs INH Q6R PRN PRN Reason: Shortness Of Breath Or Wheezin Stop: 05/06/21 23:36 Apixaban (Apixaban 2.5 Mg Tab) 2.5 mg PO BID [facility] Stop: 05/09/21 08:59 Last Admin: 04/10/21 09:14 Dose: 2.5 mg Documented by: Calcium Acetate (Calcium Acetate 667 Mg Cap/Tab) 667 mg PO TIDM [facility] Stop: 05/07/21 07:59 Last Admin: 04/10/21 12:41 Dose: 667 mg Documented by: Clonazepam (Clonazepam 0.5 Mg Tab) 0.5 mg PO BID PRN PRN Reason: Anxiety Stop: 05/08/21 17:27 Last Admin: 04/09/21 08:32 Dose: 0.5 mg Documented by: Dextrose (Dextrose 50% 50 Ml Syringe) 25 - 50 ml IV UD PRN; Protocol PRN Reason: Hypoglycemia Protocol Stop: 05/07/21 03:51 Diclofenac Sodium (Diclofenac Sod 1% Gel 100 Gm Tube) 2 gm EXT QID [facility] Stop: 05/07/21 20:59 Last Admin: 04/10/21 12:41 Dose: 2 gm Documented by: Fluticasone Furoate (Fluticasone Furoate 100mcg 14 Puffs/Inhaler) 1 puffs INH DAILY [facility]; Protocol Stop: 05/07/21 08:59 Last Admin: 04/10/21 09:17 Dose: 1 puffs Documented by: Glucagon (Glucagon For Inj 1 Mg Vial) 1 mg SQ UD PRN; Protocol PRN Reason: Hypoglycemia Protocol Stop: 05/07/21 03:51 Glucose (Glucose 10 Tabs/Tube) 4 - 8 tabs PO UD PRN; Protocol PRN Reason: Hypoglycemia Protocol Stop: 05/07/21 03:51 Glucose (Glucose 40% Gel 15 Gm Tube) 15 - 30 gm PO UD PRN; Protocol PRN Reason: Hypoglycemia Protocol Stop: 05/07/21 03:51 Guaifenesin (Guaifenesin 600 Mg Tabcr) 600 mg PO BID [facility] Stop: 05/07/21 00:00 Last Admin: 04/10/21 09:14 Dose: 600 mg Documented by: Piperacillin Sod/Tazobactam (Sod 3.375 gm/ Dextrose) 115 mls @ 28.75 mls/hr IV Q12H [facility]; Protocol Stop: 04/14/21 05:59 Last Admin: 04/10/21 12:40 Dose: 28.8 mls/hr Documented by: Insulin Aspart (Insulin Aspart 100 Units/Ml 3 Ml Pen) 0 units SC ACHS [facility] Stop: 05/07/21 07:29 Last Admin: 04/10/21 12:43 Dose: 9 units Documented by: Insulin Glargine (Insulin Glargine Solostar 100 Units/Ml 3 Ml Pen) 18 units SC DAILY [facility] Stop: 05/11/21 08:59 Lactulose (Lactulose Syrup 20 Gm/30 Ml Udc) 20 gm PO DAILY [facility] Stop: 05/07/21 08:59 Last Admin: 04/10/21 09:15 Dose: 20 gm Documented by: Lidocaine (Lidocaine 5% 1 Patch) 1 patch TD HS [facility] Stop: 05/07/21 20:59 Last Admin: 04/09/21 21:31 Dose: 1 patch Documented by: Metoprolol Succinate (Metoprolol Succ 50mg Ext Rel Tab) 50 mg PO BID [facility] Stop: 05/07/21 00:00 Last Admin: 04/10/21 09:14 Dose: 50 mg Documented by: Miscellaneous (Carbohydrates For Hypoglycemia ) 15 - 30 gm PO UD PRN PRN Reason: Hypoglycemia Protocol Stop: 05/07/21 03:51 Miscellaneous (Remove Lidoderm Patch) 1 ea N/A DAILY@0900 [facility] Stop: 05/08/21 08:59 Last Admin: 04/10/21 09:18 Dose: Not Given Documented by: Miscellaneous Information (Vancomycin Consult Active) 1 ea N/A UD PRN PRN Reason: Consult Stop: 05/06/21 23:36 Miscellaneous Information (Piperacill/Tazobac Consult Active) 1 ea N/A UD PRN PRN Reason: Consult Stop: 05/06/21 23:36 Naloxone HCl (Naloxone Hcl 0.4 Mg/1 Ml Vial/Carp) 0.4 mg IV Q6H PRN PRN Reason: opioid overdose Stop: 05/09/21 22:56 Ondansetron HCl (Ondansetron Inj 2 Mg/Ml 2 Ml Vial) 4 mg IV Q6H PRN PRN Reason: Nausea Stop: 05/06/21 23:36 Last Admin: 04/07/21 21:49 Dose: 4 mg Documented by: Oxycodone HCl (Oxycodone Hcl Ir 5 Mg Tab (Immediate Release)) 5 mg PO Q4 PRN PRN Reason: Pain moderate Stop: 04/21/21 19:22 Last Admin: 04/09/21 12:22 Dose: 5 mg Documented by: Pantoprazole Sodium (Pantoprazole 40 Mg Tab) 40 mg PO DAILY [facility]; Protocol Stop: 05/07/21 08:59 Last Admin: 04/10/21 09:16 Dose: 40 mg Documented by: Polyethylene Glycol (Polyethylene (Miralax) 17 Gm Pack) 17 gm PO DAILY [facility] Stop: 05/07/21 08:59 Last Admin: 04/10/21 09:20 Dose: Not Given Documented by: Trazodone HCl (Trazodone Hcl 50 Mg Tab) 50 mg PO HS [facility] Stop: 05/07/21 20:59 Last Admin: 04/09/21 21:32 Dose: 50 mg Documented by: Umeclidinium/Vilanterol (Umeclidinium/Vilanterol 62.5/25mcg 7 Puffs/Inhaler) 1 puffs INH DAILY [facility]; Protocol Stop: 05/07/21 08:59 Last Admin: 04/10/21 09:17 Dose: 1 puffs Documented by: Vitamin B Complex/Folic Acid (Nephrocaps) 1 cap PO QAM [facility] Stop: 05/07/21 08:59 Last Admin: 04/10/21 09:15 Dose: 1 cap Documented by: Ziprasidone (Ziprasidone Hcl 20 Mg Cap) 20 mg PO BID [facility] Stop: 05/07/21 00:00 Last Admin: 04/09/21 21:32 Dose: 20 mg Documented by: Resident Activity Tracking Resident Involvement: Resident Care Provided Care Provided: Adult Hospital Medicine
--- NOTE | 2021-04-10 07:33 | Electrocardiogram Report ---
Test Reason : Blood Pressure : / mmHG Vent. Rate : 092 BPM Atrial Rate : 092 BPM P-R Int : 170 ms QRS Dur : 112 ms QT Int : 388 ms P-R-T Axes : 062 050 008 degrees QTc Int : 479 ms Poor data quality, interpretation may be adversely affected Normal sinus rhythm Incomplete right bundle branch block Borderline ECG When compared with ECG of 06-APR-2021 12:42, Incomplete right bundle branch block is now Present Confirmed by Rainer Escalante ([id number]) on 04/10/2021 7:32:42 AM Referred [facility]: [facility] Confirmed By:Rony Escalante
--- NOTE | 2021-04-10 07:33 | Electrocardiogram Report ---
Test Reason : Blood Pressure : / mmHG Vent. Rate : 101 BPM Atrial Rate : 101 BPM P-R Int : 170 ms QRS Dur : 098 ms QT Int : 380 ms P-R-T Axes : 048 046 027 degrees QTc Int : 492 ms Poor data quality, interpretation may be adversely affected Sinus tachycardia with Premature atrial complexes Incomplete right bundle branch block Otherwise normal ECG When compared with ECG of 09-APR-2021 22:51, (unconfirmed) Premature atrial complexes are now Present Confirmed by Rainer Escalante ([id number]) on 04/10/2021 7:32:54 AM Referred By: Omega Namrodney Confirmed By:Rony Escalante
--- NOTE | 2021-04-10 08:36 | XRay Report ---
XR chest 1V portable CLINICAL HISTORY: Shortness of breath. COMPARISON STUDY: Chest CT April 06, 2021. Chest radiograph April 08, 2021. FINDINGS: A dual lumen right internal jugular central line remains in place. There is no pneumothorax . Small right pleural effusion has slightly increased. Right basilar opacity has slightly increased. There is persistent pulmonary edema. Cardiomegaly is again noted. IMPRESSION: 1. Persistent pulmonary edema. 2. Slight increase in size of a small right pleural effusion with right basilar opacity. ACT 112: Negative or not required by law. Electronically signed by: Scott Madrigal M.D. 04/10/2021 8:34 AM
[2021-04-10] MEDS: guaiFENesin 600 MG TABCR PO SCH ×2 (09:14→21:10)
[2021-04-10] MEDS: METOPROLOL SUCC 50MG EXT REL TAB PO SCH ×2 (09:14→21:10)
[2021-04-10] MEDS: APIXABAN 2.5 MG TAB PO SCH (09:14)
[2021-04-10] MEDS: NEPHROCAPS PO SCH (09:15)
[2021-04-10] MEDS: ACETAMINOPHEN 325 MG TAB PO SCH ×4 (09:15→21:10)
[2021-04-10] MEDS: LACTULOSE SYRUP 20 GM/30 ML UDC PO SCH (09:15)
[2021-04-10] MEDS: DICLOFENAC SOD 1% GEL 100 GM TUBE EXT SCH ×4 (09:16→21:10)
[2021-04-10] MEDS: CALCIUM ACETATE 667 MG CAP/TAB PO SCH ×3 (09:16→17:18)
[2021-04-10] MEDS: PANTOprazole 40 MG TAB PO SCH (09:16)
[2021-04-10] MEDS: UMECLIDINIUM/VILANTEROL 62.5/25MCG 7 PUFFS/INHALER INH SCH (09:17)
[2021-04-10] MEDS: FLUTICASONE FUROATE 100MCG 14 PUFFS/INHALER INH SCH (09:17)
[2021-04-10] MEDS: POLYETHYLENE (MIRALAX) 17 GM PACK PO SCH (09:20)
[2021-04-10] MEDS: INSULIN GLARGINE SOLOSTAR 100 UNITS/ML 3 ML PEN SC SCH (09:23)
[2021-04-10] MEDS: INSULIN ASPART 100 UNITS/ML 3 ML PEN SC SCH ×4 (09:24→21:11)
--- NOTE | 2021-04-10 10:46 | Nephrology Progress Note ---
Date of Service April 10, 2021 Assessment & Plan (1) ESRD (end stage renal disease) on dialysis: (2) Pleural effusion: (3) Acute on chronic respiratory failure with hypoxemia: (4) Chronic anemia: Plan: 60-year-old female with end-stage renal disease secondary to diabetic nephropathy and ATN with non recovery. has been on dialysis Sunday at [facility]. Admitted to the hospital with respiratory failure secondary to large right pleural effusion. Had paracentesis yesterday with improvement in respiratory status. She has also been getting dialysis with mom almost 3-4 liters of UF. She continues to have significant lower extremity edema which has been chronic and most likely secondary to hypoalbuminemia as well. -- Plan for extra dialysis tomorrow as rt pl effusion reaccumulating, although eventually she may need another pleural tap, will continue to challenge EDW -- will give JAYNE 17912 units with HD given on 04/09/21 -- encourage protein intake -- dose medications for GFR less than 10 will follow Admission and Anticipated Discharge Date Admission Date: April 06, 2021 Miriam Teague was seen in her room this morning, she was sleepy and lethargic but easily awoke up and answer question appropriately. C/O increasing SOB, on 3 L NC , sat 98 to 100%. electrolyte acceptable. Blood pressure acceptable. Hd 3 L UF with HD on 04/09/21 Physical Exam Constitutional: + ill appearing and + lethargic; no acute distress Respiratory: Auscultation: + diminished lung sounds Cardiovascular: RRR, no murmur, no edema Extremities: + edema Neurologic: moves all extremities and awake; not confused Psychiatric: A+Ox3, euthymic affect Results & Data ([facility]) Vital Signs (Past 12 Hours) Vital Signs Temp Pulse Pulse Pulse Resp BP Pulse Ox 04/10/21 10:08 99 04/10/21 08:04 85 20 122/85 97 04/10/21 07:42 86 04/10/21 03:35 37.0 C 82 20 118/75 96 04/09/21 22:45 22 97 PG Care Time/CCT Total # of Minutes Spent Total Time Spent with Patient: Total time spent is greater than 50% in coordination of care (as documented) at patient's floor/unit and/or counseling patient: Coding Level of Care Code 00486 Subseq Hosp Care Lvl 2 Diagnoses ESRD (end stage renal disease) on dialysis N18.6; Z99.2 Pleural effusion J90 Acute on chronic respiratory failure with hypoxemia J96.21 Chronic anemia D64.9
[2021-04-10] MEDS: clonazePAM 0.5 MG TAB PO PRN (15:14)
--- NOTE | 2021-04-10 18:00 | Billing Data ---
Date of Service April 10, 2021 Coding Level of Care Code 55542 Subseq Hosp Care Lvl 2
--- NOTE | 2021-04-10 18:04 | Communication Note ---
Date of Service: April 10, 2021 Addendum to progress notegiven that she had the event last night after oxycodone that reportedly would be in a range that she normally takes as an outpatient, we will definitely need to try to work on reducing her home sedating meds. For now oxycodone 10 has been discontinued, 5 still available as needed. We will continue to try to work on her back pain with lidocaine, topical diclofenac, probably would benefit from ongoing OMT. As it relates to her anxiety, likely would benefit from a slow wean off of the clonazepam given potential for sedation and respiratory suppression as well. For now we will reduce it to daily as needed. Unfortunately in the room, she was nearly bargaining for narcotics, even after last night's events.
[2021-04-10] MEDS: traZODone HCL 50 MG TAB PO SCH (21:11)
[2021-04-10] MEDS: LIDOCAINE 5% 1 PATCH TD SCH (21:13)
[2021-04-11 06:33] LABS: Hematocrit (blood only) 30.4 % (37-47); Hemoglobin 9.3 g/dL (12.0-16.0); Mean Corpuscular Hgb Conc 30.6 g/dL (32-36); Mean Corpuscular Volume 98.1 fL (80-100); Mean Platelet Volume 9.3 fL (7.4-10.4); Nucleated RBC # (auto) 0.09 K/uL (0-0); Nucleated RBC % (auto) 0.7 %; Platelet Count 231 K/uL (130-400); RDW Standard Deviation 63.5 fL (36.4-46.3)
[2021-04-11 07:04] LABS: Calcium 8.6 mg/dl (8.5-10.1); Creatinine Clr Calc Pharmacy 17.8 ml/min; Est GFR (African American) 13.4 ml/min; Est GFR (Non-African American) 11.6 ml/min; Potassium 4.2 mmol/L (3.5-5.1)
[2021-04-11] MEDS: METOPROLOL SUCC 50MG EXT REL TAB PO SCH ×2 (08:45→20:04)
[2021-04-11] MEDS: NEPHROCAPS PO SCH (08:46)
[2021-04-11] MEDS: LACTULOSE SYRUP 20 GM/30 ML UDC PO SCH (08:46)
[2021-04-11] MEDS: DICLOFENAC SOD 1% GEL 100 GM TUBE EXT SCH ×4 (08:46→20:03)
[2021-04-11] MEDS: guaiFENesin 600 MG TABCR PO SCH ×2 (08:47→20:57)
[2021-04-11] MEDS: PANTOprazole 40 MG TAB PO SCH (08:47)
[2021-04-11] MEDS: ACETAMINOPHEN 325 MG TAB PO SCH ×5 (08:47→20:02)
[2021-04-11] MEDS: INSULIN GLARGINE SOLOSTAR 100 UNITS/ML 3 ML PEN SC SCH (08:48)
[2021-04-11] MEDS: UMECLIDINIUM/VILANTEROL 62.5/25MCG 7 PUFFS/INHALER INH SCH (08:48)
[2021-04-11] MEDS: POLYETHYLENE (MIRALAX) 17 GM PACK PO SCH (08:48)
[2021-04-11] MEDS: FLUTICASONE FUROATE 100MCG 14 PUFFS/INHALER INH SCH (08:48)
[2021-04-11] MEDS: INSULIN ASPART 100 UNITS/ML 3 ML PEN SC SCH ×4 (08:49→20:07)
[2021-04-11] MEDS: CALCIUM ACETATE 667 MG CAP/TAB PO SCH ×3 (08:53→17:12)
[2021-04-11] MEDS: oxyCODONE HCL IR 5 MG TAB (IMMEDIATE RELEASE) PO PRN ×2 (09:13→18:01)
[2021-04-11] MEDS: PIPERACILLIN/TAZOBACTAM 3.375 GM in DEXTROSE 5% 100 ML IV SCH ×2 (11:34→23:49)
--- NOTE | 2021-04-11 11:49 | Nephrology Progress Note ---
Date of Service April 11, 2021 Assessment & Plan (1) ESRD (end stage renal disease) on dialysis: (2) Pleural effusion: (3) Acute on chronic respiratory failure with hypoxemia: (4) Chronic anemia: Plan: 60-year-old female with end-stage renal disease secondary to diabetic nephropathy and ATN with non recovery. has been on dialysis Sunday at [facility]. Admitted to the hospital with respiratory failure secondary to large right pleural effusion. Had paracentesis yesterday with improvement in respiratory status. She has also been getting dialysis with mom almost 3-4 liters of UF. She continues to have significant lower extremity edema which has been chronic and most likely secondary to hypoalbuminemia as well. -- dialysis now and plan for tomorrow for extra UF,, will continue to challenge EDW. however, since right-sided pleural effusion reaccumulating quickly after pleural tap 3 days ago, she may need another thoracentesis and some definitive planned for repeated right-sided pleural effusion. -- will give JAYNE [id number] units with HD. -- encourage protein intake -- dose medications for GFR less than 10 will follow Admission and Anticipated Discharge Date Admission Date: April 06, 2021 Miriam Teague was seen during HD this morning, tolerating treatment, UF, was sleepy and lethargic but easily awoke up and answer question appropriately. Electrolyte acceptable. Blood pressure acceptable. Review of Systems Review of Systems: Details review of system was otherwise unremarkable. Physical Exam Constitutional: + ill appearing and + lethargic; no acute distress Respiratory: Auscultation: + diminished lung sounds Cardiovascular: RRR, no murmur, no edema Extremities: + edema Neurologic: moves all extremities and awake; not confused Psychiatric: A+Ox3, euthymic affect Results & Data ([facility]) Vital Signs (Past 12 Hours) Vital Signs Temp Pulse Pulse Pulse Resp BP Pulse Ox 04/11/21 07:32 76 04/11/21 07:02 36.8 C 77 20 128/85 100 04/11/21 02:57 36.6 C 76 14 120/84 98 PG Care Time/CCT Total # of Minutes Spent Total Time Spent with Patient: Total time spent is greater than 50% in coordination of care (as documented) at patient's floor/unit and/or counseling patient: Coding Level of Care Code 65655 Subseq Hosp Care Lvl 3 Diagnoses ESRD (end stage renal disease) on dialysis N18.6; Z99.2 Pleural effusion J90 Acute on chronic respiratory failure with hypoxemia J96.21 Chronic anemia D64.9
--- NOTE | 2021-04-11 15:41 | Pharmacy Report ---
Pharmacy Abx Dose Short Note - Date of Service April 11, 2021 - Assessment & Plan Assessment 60 year old F receiving Vancomycin for treatment of Pneumonia. Pleural fluid culture 1/2 NGTD. Day #6 of antimicrobial therapy. Patient has been receiving Vancomycin 500 mg IV x 1 dosing based on random levels with AM labs on HD days. Plan Vancomycin * Random level of 18 mcg/mL obtained this AM is therapeutic and within goal. * Patient getting HD this afternoon. Vancomycin 500 mg IV x 1 dose ordered for tonight at 1800 after HD. * If therapy is to continue, then will continue to get a random level with AM labs on HD days. * Goal trough for Pneumonia: 15-20 mcg/ml. Will re-dose after HD, when level falls within this range. Pharmacy will continue to follow and will adjust dose/frequency as necessary. Thank you.
--- NOTE | 2021-04-11 15:57 | Hospitalist Progress Note ---
Date of Service April 11, 2021 Assessment & Plan (1) Pleural effusion: Plan: SOB secondary to R pleural effusion and PNA -received additional dialysis today (was dialyzed yesterday) -spoke with pulmonology about possible repeat thoracentesis; will reevaluate tomorrow after dialysis today * CXR ordered; Eliquis held in anticipation Polypharmacy -04/09 patient overdosed on 10mg oxycodone which patient states is part of her [facility] medication regiment, reversed symptoms with naloxone -5mg oxycodone q4hr PRN -clonazepam 0.5mg BID PRN; might wean off if anxiety improves off benzo Elevated WBC -WBC count elevated again to 12.6 from 11.58 -may be secondary to recent stress -will continue to monitor Suspect UTI -CT ab/pelvis with findings suggestive of cystitis, UA with epithelial cells concerning for contamination. -Difficult to correlate symptoms due to patients awareness and lack of urination -Coverage with Zosyn Acute on chronic HFpEF -In acute exacerbation, BNP >35k -Minimal urine output -Nephrology scheduling dialysis sunday; 3L removed today, 1.7L removed Sunday -fluid restrict 1800 mL daily Paroxysmal AFib -Eliquis on hold currently in case of repeat thoracentesis tomorrow -Continue Toprol 50mg BID Hypertension -now 129/84 -Still holding hydralazine -Continuing Metoprolol -Holding ASA COPD -On Mucinex, Anoro Ellipta, Arnuity Ellipta ESRD on Dialysis -Dialysis T, Th, Sat, extra dialysis today * 3L removed today -Nephrology consulted -Continue Phoslo -Nephrocaps QD Bipolar disorder -Continue home Ziprasidone -Continue home Trazodone (2) Diastolic CHF, acute on chronic: (3) ESRD (end stage renal disease) on dialysis: (4) Pneumonia: (5) SOB (shortness of breath): (6) Polypharmacy: (7) Elevated WBC count: Admission and Anticipated Discharge Date Admission Date: April 06, 2021 Supervising Physician Co-Signing Physician Notes I personally examined and confirmed senior portions of the history and exam. During our late afternoon exam, patient is without complaint. She is S/P HD earlier this morning. EXAM 129/84, 20. 36.4, 100% (3 lpm) She is alert and oriented. Respirations non labored. Assessment and Plan I agree with the impression and plan as noted in the resident documentation. Pneumonia/parapneumonic effusion Seems overall stable but unfortunately effusion returned Repeat CXR in AM and consider repeat thoracentesis Holding anticoagulation ESRD on HD Appreciate nephrology consultation Additional Diagnosis as per resident note. Miriam Teague was asleep this morning. She appeared drowsy and lethargic, drifting in and out of conversation. However, she was easily roused with speech and answered questions appropriately. She reports LLQ abdominal pain and SOB at rest. Otherwise she has no complaints. Review of Systems Constitutional: no fever and no chills Respiratory: + dyspnea; no cough and no chest congestion Cardiovascular: + dyspnea at rest; no chest pain and no chest pain at rest Gastrointestinal: + abdominal pain; no nausea and no vomiting Physical Exam Constitutional: + intoxicated appearing, + altered mental status and + disheveled Respiratory: normal respiratory effort Cardiovascular: RRR, no murmur, no edema Extremities: + edema (2+ pitting edema on the left to the knees; 1+ pitting edema on the right) Gastrointestinal (Abdomen): Inspection/Auscultation: + abdomen distended and normal bowel sounds Musculoskeletal: Extremities: + amputation noted (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
[2021-04-11] MEDS ORDERED: VANCOMYCIN HCL 500 MG in SODIUM CHLORIDE 0.9% 250 ML IV ONE (18:00)
[2021-04-11] MEDS: traZODone HCL 50 MG TAB PO SCH (20:04)
[2021-04-11] MEDS: LIDOCAINE 5% 1 PATCH TD SCH (20:05)
--- NOTE | 2021-04-11 20:29 | XRay Report ---
SINGLE VIEW CHEST CLINICAL HISTORY: Pleural effusions. FINDINGS: An AP, portable, upright chest radiograph is compared to study dated 04/09/2021 and correlate d with chest CT dated 04/06/2021. A right internal jugular central venous catheter is unchanged in posi tion. The heart is enlarged. There is pulmonary vascular congestion. There are right larger than left pleural effusions with bibasilar consolidation. No pneumothorax is identified. The skeletal structur es are osteopenic. The bony thorax appears intact. IMPRESSION: 1. Cardiomegaly with evidence of congestive failure. 2. Right larger than left pleural effusions with bibasilar consolidation. The right pleural effusion has increased in size as compared to 04/09/2021. ACT 112: Negative or not required by law. Electronically signed by: Phil Alfaro M.D. 04/11/2021 8:28 PM
[2021-04-12 06:54] LABS: Basophils # (auto) 0.04 K/uL (0-0.2); Basophils % (auto) 0.4 %; Eosinophils % (auto) 4.4 %; Hematocrit (blood only) 28.7 % (37-47); Hemoglobin 8.6 g/dL (12.0-16.0); Immature Granulocytes # (auto) 0.11 K/uL (0.00-0.02); Immature Granulocytes % (auto) 1.2 %; Lymphocytes # (auto) 0.71 K/uL (1.2-3.4); Lymphocytes % (auto) 7.9 %; Mean Corpuscular Hemoglobin 29.6 pg (25-34); Mean Corpuscular Volume 98.6 fL (80-100); Mean Platelet Volume 9.3 fL (7.4-10.4); Monocytes # (auto) 1.04 K/uL (0.11-0.59); Monocytes % (auto) 11.5 %; Neutrophils # (auto) 6.72 K/uL (1.4-6.5); Neutrophils % (auto) 74.6 %; Nucleated RBC # (auto) 0.04 K/uL (0-0); Nucleated RBC % (auto) 0.4 %; Platelet Count 221 K/uL (130-400); RDW Coefficient of Variation 18.4 % (11.5-14.5); RDW Standard Deviation 64.7 fL (36.4-46.3); Red Blood Count 2.91 M/uL (4.2-5.4); White Blood Count 9.02 K/uL (4.8-10.8)
[2021-04-12 07:32] LABS: BUN Creatinine Ratio 8.6 (10-20); Calcium 8.1 mg/dl (8.5-10.1); Creatinine Clr Calc Pharmacy 25.4 ml/min; Est GFR (African American) 21.1 ml/min; Est GFR (Non-African American) 18.2 ml/min; Potassium 3.9 mmol/L (3.5-5.1)
[2021-04-12] MEDS: INSULIN GLARGINE SOLOSTAR 100 UNITS/ML 3 ML PEN SC SCH (08:18)
[2021-04-12] MEDS: INSULIN ASPART 100 UNITS/ML 3 ML PEN SC SCH ×4 (08:19→20:17)
[2021-04-12] MEDS: UMECLIDINIUM/VILANTEROL 62.5/25MCG 7 PUFFS/INHALER INH SCH (08:21)
[2021-04-12] MEDS: DICLOFENAC SOD 1% GEL 100 GM TUBE EXT SCH ×4 (08:22→20:13)
[2021-04-12] MEDS: FLUTICASONE FUROATE 100MCG 14 PUFFS/INHALER INH SCH (08:22)
[2021-04-12] MEDS: oxyCODONE HCL IR 5 MG TAB (IMMEDIATE RELEASE) PO PRN ×3 (08:28→23:18)
--- NOTE | 2021-04-12 10:32 | Hospitalist Progress Note ---
Date of Service April 12, 2021 Assessment & Plan (1) Pleural effusion: Plan: SOB secondary to R pleural effusion and PNA -received additional dialysis today (was dialyzed yesterday) * removed an additional 3L to the 3L removed yesterday -spoke with pulmonology about possible repeat thoracentesis; will reevaluate tomorrow after dialysis today * CXR ordered this AM: * moderate to large right pleural effusion; unchanged minimal left pleural effusion * mild interval worsening of b/l opacities which might represent pulmonary edema and/or atelectasis/infiltrates * Eliquis held in anticipation yesterday; pulmonology prefers 48 hours without Eliquis before thoracentesis so will reassess tomorrow -nephrology plans to perform consecutive daily dialysis to remove more fluid Polypharmacy -5 mg oxycodone q4hr PRN -clonazepam 0.5mg BID PRN; might wean off if anxiety improves off benzo -per nurse, did not receive any PRN clonazepam today -will continue to monitor Elevated WBC -WBC count improved today (9, down from 12.6 yesterday) -will continue to monitor Suspect UTI -CT ab/pelvis with findings suggestive of cystitis, UA with epithelial cells concerning for contamination. -Difficult to correlate symptoms due to patients awareness and lack of urination -Coverage with Zosyn Acute on chronic HFpEF -In acute exacerbation, BNP >35k -Minimal urine output -Nephrology scheduling dialysis sunday; 3L removed today, 3L yesterday, 1.7L removed Sunday -fluid restrict 1800 mL daily -nephrology plans consecutive daily dialysis treatments to remove additional fluid Paroxysmal AFib -Eliquis on hold currently in case of repeat thoracentesis tomorrow -Continue Toprol 50mg BID Hypertension -now 123/74 -Still holding hydralazine -Continuing Metoprolol -Holding ASA COPD -On Mucinex, Anoro Ellipta, Arnuity Ellipta ESRD on Dialysis -Dialysis T, , Sun, extra dialysis today * 3L removed today (3L removed yesterday) -Nephrology consulted -Continue Phoslo -Nephrocaps QD Bipolar disorder -Continue home Ziprasidone -Continue home Trazodone (2) Diastolic CHF, acute on chronic: (3) ESRD (end stage renal disease) on dialysis: (4) Pneumonia: (5) SOB (shortness of breath): (6) Polypharmacy: (7) Elevated WBC count: Admission and Anticipated Discharge Date Admission Date: April 06, 2021 Supervising Physician Co-Signing Physician Notes I personally examined and confirmed senior portions of the history and exam. During our midmorning exam, patient is without complaint. She is currently undergoing hemodialysis treatment. EXAM 125/79, 91, 18, 36.5, 98% on nasal cannula at 3 L/min. She is alert and oriented. Respirations non labored. Data Hemoglobin 8.6, platelet count 221. Sodium 130, potassium 3.9, BUN 24, creatinine 2.76 Chest XR dated this morning show stable (compared to yesterday, but increased compared to 04/09) moderate to large right pleural effusion Assessment and Plan I agree with the impression and plan as noted in the resident documentation. Pneumonia/parapneumonic effusion End-stage renal disease on hemodialysis Hemodialysis today, which is second consecutive day Bumex 2 mg once daily added Lactulose increased to 30 g daily Seems overall stable but unfortunately effusion returned Plan is for repeat thoracentesis tomorrow, 04/13/2021 Holding anticoagulation Additional Diagnosis as per resident note. Miriam Teague was noticeably more awake and alert this morning compared to yesterday. She appeared fully alert and oriented x3. She notes some difficulty breathing, which is not unusual for her, though is not using her nasal cannula as she reports this. She complains of some abdominal pain and diarrhea. Review of Systems Constitutional: as per Subjective / HPI Physical Exam Constitutional: WD/WN, vitals as above Respiratory: able to speak in complete sentences Auscultation: + diminished lung sounds Cardiovascular: RRR, no murmur, no edema Extremities: + pedal edema (2+ pitting edema of the left leg to the level of the knee) Gastrointestinal (Abdomen): normal bowel sounds, soft, nontender, no hepatosplenomegaly Musculoskeletal: Extremities: + amputation noted (on the right below the knee; of the left great toe) Results & Data Results & Data ([facility]) Vital Signs (Past 12 Hours) Vital Signs Temp Pulse Pulse Resp BP BP Pulse Ox 04/12/21 09:40 79 116/69 04/12/21 09:20 79 106/65 04/12/21 09:00 79 99/61 L 04/12/21 08:39 77 105/66 04/12/21 08:35 36.6 C 77 04/12/21 07:49 77 04/12/21 03:44 36.6 C 74 18 109/60 95 04/12/21 00:11 84 04/11/21 23:12 36.5 C 85 16 105/72 99 Resident Activity Tracking Resident Involvement: Resident Care Provided Care Provided: Adult [facility]
--- NOTE | 2021-04-12 10:39 | XRay Report ---
XR chest 1V portable CLINICAL HISTORY: pleural effusion COMPARISON STUDY: April 11, 2021 FINDINGS: No pneumothorax. Redemonstration of the moderate to large right pleural effusion which is unchanged since prior study performed yesterday. Minimal pleural effusion on the left is again seen. Bilateral diffuse reticular and airspace opacities are again seen bilaterally, unchanged on the right and slightly worsened on the left. Cardiomediastinal silhouette is stable and partially obscured by surrounding opacities. Pulmonary vasculature is indistinct.. Osseous structures: unremarkable Stable position of right-sided HD catheter. IMPRESSION: 1. Stable moderate to large right pleural effusion. Unchanged minimal left pleural effusion. 2. Mild interval worsening of bilateral opacities which might represent pulmonary edema and/or atel ectasis/infiltrates. ACT 112: Negative or not required by law. The above report was generated using voice recognition software. It may contain grammatical, syntax o r spelling errors. Electronically signed by: Lisa Crane DO 04/12/2021 10:38 AM
[2021-04-12] MEDS: LACTULOSE SYRUP 20 GM/30 ML UDC PO SCH ×2 (10:57→13:50)
--- NOTE | 2021-04-12 12:04 | Nephrology Progress Note ---
Date of Service April 12, 2021 Assessment & Plan (1) ESRD (end stage renal disease) on dialysis: (2) Pleural effusion: (3) Acute on chronic respiratory failure with hypoxemia: (4) Chronic anemia: Plan: 60-year-old female with end-stage renal disease secondary to diabetic nephropathy and ATN with non recovery. has been on dialysis Sunday at [facility]. Admitted to the hospital with respiratory failure secondary to large right pleural effusion. Had paracentesis yesterday with improvement in respiratory status. She has also been getting dialysis with mom almost 3-4 liters of UF. She continues to have significant lower extremity edema which has been chronic and most likely secondary to hypoalbuminemia as well. -- dialysis now and plan for 3 L UF if tolerated. She continues to be volume overloaded with abdominal ascites, right-sided pleural effusion reaccumulating quickly and persistent lower extremity edema. She may need another thoracentesis and some definitive planned for repeated right-sided pleural effusion. -- Start on Bumex 2 mg orally once a day -- received JAYNE 19188 units with HD. -- increase lactulose to 30 g daily -- encourage protein intake -- dose medications for GFR less than 10 will follow Admission and Anticipated Discharge Date Admission Date: April 06, 2021 Miriam Teague was seen during dialysis this morning. Blood pressure was relatively low but she was asymptomatic, no dizziness or lightheadedness. Her main complaint was left-sided abdominal pain which most likely because of abdominal wall ascites. She also complained of feeling of bloated in her abdomen as she did not have bowel movement last 2 days. Review of Systems Review of Systems: Details review of system was otherwise unremarkable. Physical Exam Constitutional: + ill appearing and + lethargic; no acute distress Respiratory: Auscultation: + diminished lung sounds Cardiovascular: RRR, no murmur, no edema Extremities: + edema Gastrointestinal (Abdomen): Percussion/Palpation: + abdomen tender and + ascites; no guarding and abdomen not rigid Neurologic: awake; not confused Psychiatric: A+Ox3, euthymic affect Results & Data ([facility]) Vital Signs (Past 12 Hours) Vital Signs Temp Pulse Pulse Resp BP BP Pulse Ox 04/12/21 11:40 61 93/55 L 04/12/21 11:20 85 115/71 04/12/21 11:00 82 119/78 04/12/21 10:40 81 109/67 04/12/21 10:20 81 115/68 04/12/21 10:00 80 116/73 04/12/21 09:40 79 116/69 04/12/21 09:20 79 106/65 04/12/21 09:00 79 99/61 L 04/12/21 08:39 77 105/66 04/12/21 08:35 36.6 C 77 04/12/21 07:49 77 04/12/21 03:44 36.6 C 74 18 109/60 95 04/12/21 00:11 84 PG Care Time/CCT Total # of Minutes Spent Total Time Spent with Patient: Total time spent is greater than 50% in coordination of care (as documented) at patient's floor/unit and/or counseling patient: Coding Level of Care Code 70952 Subseq Hosp Care Lvl 3 Diagnoses ESRD (end stage renal disease) on dialysis N18.6; Z99.2 Pleural effusion J90 Acute on chronic respiratory failure with hypoxemia J96.21 Chronic anemia D64.9
--- NOTE | 2021-04-12 12:47 | Pulmonology Progress Note ---
Date of Service April 12, 2021 Assessment & Plan (1) Hypervolemia associated with renal insufficiency: (2) Dialysis patient: (3) Chronic respiratory failure: Respiratory failure complication: hypoxia Qualified Code(s): J96.11 - Chronic respiratory failure with hypoxia (4) Acute on chronic right-sided congestive heart failure: (5) Pleural effusion: Plan: 60-year-old female with a history of end-stage renal disease on hemodialysis, chronic hypoxemic respiratory failure and polypharmacy who presented to the hospital due to increasing shortness of breath. Hypervolemia: Multifactorial related to end-stage renal disease and hypoalbuminemia. Surprisingly, imaging does not suggest cirrhosis. She has a component of diastolic heart failure which is also contributing. I had a discussion with supervisor concrete pipe plant, Dr. Hollis and she noted that she will try consecutive daily hemodialysis to attempt to get some more fluid off. We also considered the option of continuous renal replacement therapy, but ultimately this would only be a temporizing measure and she does not have critical enough illness at this time to warrant transfer to a tertiary center for acute CRRT. Recurrent right pleural effusion: She received Eliquis yesterday. Will attempt repeat thoracentesis tomorrow (04/13/2021) given worsening pleural effusion on the right. Thoracentesis was completed on 04/08/2021 which yielded approximately 1500 mL of transudative effusion. Can consider placement of a Pleurx catheter or chemical pleurodesis if the pleural effusion is refractory to more aggressive hemodialysis. Cultures and cytology are negative negative from the pleural fluid on 04/08/2021. Chronic hypoxemic respiratory failure: Goal saturations of 88 to 92%. Secondary to hypervolemic state and heart failure. Secondary pulmonary hypertension: Echo from 04/07/2021 suggest a normal EF. Moderate concentric LVH was noted. Possible moderate mitral regurgitation was noted. Mild mitral stenosis described. Severe tricuspid regurgitation. RVSP was estimated 59 mmHg. She may benefit from a right heart catheterization when she is more euvolemic and if she still has hypoxemia. Admission and Anticipated Discharge Date Admission Date: April 06, 2021 Subjective Patient seen and examined this afternoon. She denies any shortness of breath. She is currently on 3 L of oxygen saturating 96%. No recent fevers or chills. She is mildly delirious, but oriented question. Review of Systems Review of Systems: 05/19 point ROS negative unless noted elsewhere Physical Exam Physical Exam: Constitutional: Disheveled appearing female no apparent distress. Eyes: Pupils are equal round and reactive to light. Conjunctivae are normal. Anicteric sclera. Ears nose, mouth and throat: No obvious deformities. Neck: Trachea is midline. Visual inspection is normal. Respiratory: Diminished lung sounds on the right. Mild crackles bilaterally. Cardiovascular: Regular rate and rhythm. No murmurs. 3+ pitting edema in her left lower extremity. Gastrointestinal: Normal bowel sounds, soft, nontender and nondistended. No hepatosplenomegaly noted. Musculoskeletal: No cyanosis. Patient is able to move all extremities. Right BKA noted. Skin: No rashes, warm dry and intact. Neurologic: No obvious focal neurological deficits seen. Psychiatric: Alert and oriented x3 with a euthymic affect. Results & Data Results & Data ([facility]) Vital Signs (Past 12 Hours) Vital Signs Temp Pulse Pulse Resp BP BP Pulse Ox 04/12/21 12:20 82 96/55 L 04/12/21 12:00 80 105/61 04/12/21 11:40 61 93/55 L 04/12/21 11:20 85 115/71 04/12/21 11:00 82 119/78 04/12/21 10:40 81 109/67 04/12/21 10:20 81 115/68 04/12/21 10:00 80 116/73 04/12/21 09:40 79 116/69 04/12/21 09:20 79 106/65 04/12/21 09:00 79 99/61 L 04/12/21 08:39 77 105/66 04/12/21 08:35 97.9 F 77 04/12/21 07:49 77 04/12/21 03:44 97.9 F 74 18 109/60 95 Vital signs, labs and imaging personally reviewed PG Care Time/CCT Total # of Minutes Spent Total Time Spent with Patient: Total time spent is greater than 50% in coordination of care (as documented) at patient's floor/unit and/or counseling patient: Coding Level of Care Code 77765 Subseq Hosp Care Lvl 3 Diagnoses Hypervolemia associated with renal insufficiency E87.70; N28.9 Dialysis patient Z99.2 Chronic respiratory failure J96.11 Respiratory failure complication: hypoxia Acute on chronic right-sided congestive heart failure I50.813 Pleural effusion J90
[2021-04-12] MEDS: METOPROLOL SUCC 50MG EXT REL TAB PO SCH ×2 (13:47→20:15)
[2021-04-12] MEDS: POLYETHYLENE (MIRALAX) 17 GM PACK PO SCH (13:47)
[2021-04-12] MEDS: ACETAMINOPHEN 325 MG TAB PO SCH ×4 (13:48→20:13)
[2021-04-12] MEDS: CALCIUM ACETATE 667 MG CAP/TAB PO SCH ×3 (13:48→17:33)
[2021-04-12] MEDS: guaiFENesin 600 MG TABCR PO SCH ×2 (13:50→20:14)
[2021-04-12] MEDS: NEPHROCAPS PO SCH (13:50)
[2021-04-12] MEDS: PANTOprazole 40 MG TAB PO SCH (13:50)
[2021-04-12] MEDS: PIPERACILLIN/TAZOBACTAM 3.375 GM in DEXTROSE 5% 100 ML IV SCH ×2 (13:52→23:19)
[2021-04-12] MEDS: clonazePAM 0.5 MG TAB PO PRN (17:21)
[2021-04-12] MEDS: BUMETANIDE 1 MG TAB PO SCH (17:34)
[2021-04-12] MEDS: LIDOCAINE 5% 1 PATCH TD SCH (20:14)
[2021-04-12] MEDS: traZODone HCL 50 MG TAB PO SCH (20:15)
[2021-04-12] MEDS: CALCIUM CARBONATE 500 MG CHEWABLE TAB PO PRN (23:33)
[2021-04-13] MEDS: SIMETHICONE 80 MG CHEW PO PRN ×3 (01:02→23:29)
--- NOTE | 2021-04-13 02:47 | Communication Note ---
Date of Service: April 13, 2021 Notified by nursing that patient was having worsening abdominal discomfort and pain despite oxycodone and simethicone use. Also now describing some sharp chest pain. Evaluated patient at the bedside who noted her pain in her abdomen was her chronic pain, though felt worse tonight. [place] that this pain also moved towards her chest in the epigastric to lower L medial chest wall. Describes the chest pain as sharp, no pressure. PE: Patients abdomen was slightly ttp in the RUQ, soft, distended, no rebound. Plan: -EKG without acute changes concerning for STEMI -Ordered for CT scan of abdomen due to worsening pain, stat read as below. No significant interval change compared to the CT study dated 04/06/2021. Anasarca with moderate right and small left pleural effusion, mild ascites, and diffuse body wall edema. Persistent consolidative opacity and volume loss in the right lower lobe, atelectasis versus pneumonia. No evidence of bowel obstruction. No pneumoperitoneum. Normal caliber of the appendix and no evidence of acute appendicitis. No hydronephrosis. Nonspecific prominent retroperitoneal lymph nodes. Similar appearance of endplate irregularity at L5-S1 will. No progressive osseous destruction or surrounding soft tissue edema to suggest discitis osteomyelitis. -Will discuss further pain control with day team. 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
[2021-04-13 06:51] LABS: Hematocrit (blood only) 29.1 % (37-47); Hemoglobin 8.6 g/dL (12.0-16.0); Mean Corpuscular Hemoglobin 29.7 pg (25-34); Mean Corpuscular Hgb Conc 29.6 g/dL (32-36); Mean Corpuscular Volume 100.3 fL (80-100); Platelet Count 209 K/uL (130-400); RDW Coefficient of Variation 18.2 % (11.5-14.5); RDW Standard Deviation 65.9 fL (36.4-46.3); White Blood Count 7.81 K/uL (4.8-10.8)
[2021-04-13 07:19] LABS: BUN Creatinine Ratio 9.2 (10-20); Calcium 8.5 mg/dl (8.5-10.1); Creatinine Clr Calc Pharmacy 31.6 ml/min; Est GFR (Non-African American) 23.3 ml/min; Potassium 3.8 mmol/L (3.5-5.1)
--- NOTE | 2021-04-13 07:51 | CT Scan Report ---
ABDOMEN AND PELVIS CT WITHOUT CONTRAST CT DOSE: 709.11 mGy.cm HISTORY: Generalized abdominal pain TECHNIQUE: Multiaxial CT images of the abdomen and pelvis were performed without contrast. A dose lo wering technique was utilized adhering to the principles of ALARA. COMPARISON STUDY: Abdomen and pelvis CT 04/06/2021. FINDINGS: No change in the moderate to large right pleural effusion and small left pleural effusion. There is consolidation within the right lung base with interstitial thickening at the lung bases. Thi s is also unchanged. No pneumoperitoneum. No pneumatosis. No change in the endplate irregularity and disc space narrowing at L5-S1. No surrounding soft tissue edema or progressive destruction to suggest a discitis/osteomyelitis. Diffuse body wall edema. The unenhanced liver, spleen, adrenal glands, and pancreas unremarkable. Bilateral renal vascular calcification is are again noted. No hydronephrosis. A few small hypodense left renal lesions remain unchanged. These are incompletely characterized on t his noncontrast study but favor cysts. Mild retroperitoneal lymphadenopathy remains unchanged. The ga llbladder is decompressed resulting in suboptimal evaluation. Trace perihepatic ascites, unchanged. P ersistent bladder wall thickening. This may be due to underdistention. The uterus and bilateral adnex a are unchanged. A few colonic diverticula. No evidence for acute diverticulitis. No bowel wall thick ening or obstruction. Fluid-filled colon. Normal appendix. There are also fluid-filled nondilated loo ps of small bowel seen throughout the abdomen. This is similar to the prior study. IMPRESSION: 1. No change in the moderate to large right and small left pleural effusions with associated bibasila r densities and interstitial thickening. 2. Fluid-filled nondilated large and small bowel suggests a mild gastroenteritis. This is similar to the prior study. 3. Persistent bladder wall thickening. This may represent a cystitis. 4. Diffuse body wall edema. 5. Trace ascites. 6. Mild retroperitoneal lymphadenopathy, unchanged. 7. Normal appendix. ACT 112: Negative or not required by law. Electronically signed by: Aly Ponce M.D. 04/13/2021 7:50 AM
[2021-04-13] MEDS ORDERED: BUMETANIDE 1 MG TAB PO SCH (09:00)
--- NOTE | 2021-04-13 09:05 | Hospitalist Progress Note ---
Date of Service April 13, 2021 Assessment & Plan (1) Pleural effusion: Plan: SOB secondary to R pleural effusion and PNA -received additional dialysis today (was dialyzed yesterday) * removed an additional 3L to the 3L removed yesterday -spoke with pulmonology about possible repeat thoracentesis; will reevaluate tomorrow after dialysis today * CXR ordered this AM: * moderate to large right pleural effusion; unchanged minimal left pleural effusion * mild interval worsening of b/l opacities which might represent pulmonary edema and/or atelectasis/infiltrates * Eliquis held in anticipation yesterday; pulmonology prefers 48 hours without Eliquis before thoracentesis so will reassess tomorrow -nephrology: scheduled dialysis tomorrow Polypharmacy -5 mg oxycodone q4hr PRN -clonazepam 0.5mg BID PRN; might wean off if anxiety improves off benzo -per nurse, did not receive any PRN clonazepam today -will continue to monitor Elevated WBC -WBC count improved today (9, down from 12.6 yesterday) -will continue to monitor Suspect UTI -CT ab/pelvis with findings suggestive of cystitis, UA with epithelial cells concerning for contamination. -Difficult to correlate symptoms due to patients awareness and lack of urination -Coverage with [facility] Acute on chronic HFpEF -In acute exacerbation, BNP >35k -Minimal urine output -Nephrology scheduling dialysis sunday; no dialysis today, 3L yesterday, 1.7L removed Sunday -fluid restrict 1800 mL daily -nephrology plans consecutive daily dialysis treatments to remove additional fluid Paroxysmal AFib -Eliquis on hold currently in case of repeat thoracentesis tomorrow -Continue Toprol 50mg BID Hypertension -now 123/74 -Still holding hydralazine -Continuing Metoprolol -Holding ASA COPD -On Mucinex, Anoro Ellipta, Arnuity Ellipta ESRD on Dialysis -Dialysis T, , Sun, no dialysis today * 3L removed yesterday -Nephrology still following -Continue Phoslo -Nephrocaps QD Bipolar disorder -Continue home Ziprasidone -Continue home Trazodone (2) Diastolic CHF, acute on chronic: (3) ESRD (end stage renal disease) on dialysis: (4) Pneumonia: (5) SOB (shortness of breath): (6) Polypharmacy: (7) Elevated WBC count: Admission and Anticipated Discharge Date Admission Date: April 06, 2021 Supervising Physician Co-Signing Physician Notes I personally examined and confirmed senior portions of the history and exam. During our mmorning exam, patient is without complaint. She is a little bit frustrated with that she still in the hospital but understanding of the need to slowly diurese via hemodialysis. She understands that there may be need for recurrent thoracentesis although she would hope to avoid this if possible. She had some abdominal pain overnight. She has this on a intermittent but chronic basis. Imaging was unremarkable. She does not mention the pain this morning. EXAM 125/78, 81, 16, 36.6, 100% on 3 L/min via nasal cannula She is alert and oriented. Respirations non labored. Data Hemoglobin 8.6, platelet count 209. Sodium 131, potassium 3.8, BUN 21, creatinine 2.25 Assessment and Plan I agree with the impression and plan as noted in the resident documentation. Pneumonia/parapneumonic effusion End-stage renal disease on hemodialysis Hemodialysis again today, which is third consecutive day Bumex 2 mg daily Lactulose 30 g daily Seems overall stable but unfortunately effusion returned Urology will reevaluate for possible repeat thoracentesis tomorrow, 04/14/2021 Holding anticoagulation Additional Diagnosis as per resident note. Subjective Overnight, Zahida complained of abdominal pain, which was worked up by the night resident. This morning, she is drowsy and disoriented this morning. Still redirectable by voice. Complained of fatigue, belly pain, and SOB. Review of Systems Constitutional: as per Subjective / HPI Physical Exam Constitutional: + ill appearing and + lethargic Respiratory: Auscultation: + crackles (lower left lung field) Cardiovascular: Heart Sounds: + murmur (loudest at LUSB) Extremities: + edema (2+ pitting edema to the knee) Gastrointestinal (Abdomen): Inspection/Auscultation: + abdomen distended Percussion/Palpation: + abdomen tender (epigastric area) Results & Data Results & Data ([facility]) Vital Signs (Past 12 Hours) Vital Signs Temp Pulse Pulse Pulse Resp BP Pulse Ox 04/13/21 08:13 36.6 C 79 16 125/83 100 04/13/21 07:00 81 04/13/21 02:44 36.5 C 84 18 113/78 98 04/12/21 23:54 96 H 04/12/21 23:02 36.6 C 95 H 20 116/71 95 Resident Activity Tracking Resident Involvement: Resident Care Provided Care Provided: Adult Hospital Medicine
[2021-04-13] MEDS: INSULIN GLARGINE SOLOSTAR 100 UNITS/ML 3 ML PEN SC SCH (09:18)
[2021-04-13] MEDS: INSULIN ASPART 100 UNITS/ML 3 ML PEN SC SCH ×4 (09:19→21:47)
[2021-04-13] MEDS: CALCIUM CARBONATE 500 MG CHEWABLE TAB PO PRN (09:21)
[2021-04-13] MEDS: METOPROLOL SUCC 50MG EXT REL TAB PO SCH ×2 (09:21→21:37)
[2021-04-13] MEDS: CALCIUM ACETATE 667 MG CAP/TAB PO SCH ×3 (09:21→18:43)
[2021-04-13] MEDS: clonazePAM 0.5 MG TAB PO PRN (09:21)
[2021-04-13] MEDS: oxyCODONE HCL IR 5 MG TAB (IMMEDIATE RELEASE) PO PRN ×3 (09:21→21:35)
[2021-04-13] MEDS: ACETAMINOPHEN 325 MG TAB PO SCH ×4 (09:22→21:38)
[2021-04-13] MEDS: UMECLIDINIUM/VILANTEROL 62.5/25MCG 7 PUFFS/INHALER INH SCH (09:22)
[2021-04-13] MEDS: DICLOFENAC SOD 1% GEL 100 GM TUBE EXT SCH ×4 (09:22→21:36)
[2021-04-13] MEDS: BUMETANIDE 1 MG TAB PO SCH ×2 (09:22→21:36)
[2021-04-13] MEDS: guaiFENesin 600 MG TABCR PO SCH ×2 (09:23→21:36)
[2021-04-13] MEDS: PANTOprazole 40 MG TAB PO SCH (09:23)
[2021-04-13] MEDS: LACTULOSE SYRUP 20 GM/30 ML UDC PO SCH (09:23)
[2021-04-13] MEDS: FLUTICASONE FUROATE 100MCG 14 PUFFS/INHALER INH SCH (09:23)
[2021-04-13] MEDS: NEPHROCAPS PO SCH (09:23)
[2021-04-13] MEDS: POLYETHYLENE (MIRALAX) 17 GM PACK PO SCH (09:24)
--- NOTE | 2021-04-13 10:34 | Nephrology Progress Note ---
Date of Service April 13, 2021 Assessment & Plan (1) ESRD (end stage renal disease) on dialysis: (2) Pleural effusion: (3) Acute on chronic respiratory failure with hypoxemia: (4) Chronic anemia: Plan: 60-year-old female with end-stage renal disease secondary to diabetic nephropathy and ATN with non recovery. has been on dialysis Sunday at [facility]. Admitted to the hospital with respiratory failure secondary to large right pleural effusion. Had paracentesis yesterday with improvement in respiratory status. She has also been getting dialysis with mom almost 3-4 liters of UF. She continues to have significant lower extremity edema which has been chronic and most likely secondary to hypoalbuminemia as well. -- will try daily dialysis for UF with low blood flow to improve overall volume status. She continues to be volume overloaded with abdominal ascites, right- sided pleural effusion reaccumulating quickly and persistent lower extremity edema. She may need another thoracentesis and some definitive planned for repeated right-sided pleural effusion. -- Start on Bumex 2 mg orally once a day -- received JAYNE 26131 units with HD. -- increase lactulose to 30 g daily -- encourage protein intake -- dose medications for GFR less than 10 will follow Admission and Anticipated Discharge Date Admission Date: April 06, 2021 Miriam Teague was seen in her room this morning. Overnight she complained of abdominal pain however workup including CT abdomen pelvis was unremarkable Exc ept persistent moderate to large right pleural effusion, abdominal ascites and abdominal wall edema. Had bowel movement yesterday. Noted some nose bleed this morning, she has been on humidified oxygen via nasal cannula. Overall feels poorly and complained, "I can't breath", she frequently takes her nasal cannula oxygen off. Review of Systems Review of Systems: Details review of system was otherwise unremarkable. Physical Exam Constitutional: + ill appearing; no acute distress Respiratory: Auscultation: + diminished lung sounds Cardiovascular: RRR, no murmur, no edema Extremities: + edema Gastrointestinal (Abdomen): Percussion/Palpation: + abdomen tender and + ascites; no guarding and abdomen not rigid Neurologic: moves all extremities and awake; not confused Psychiatric: A+Ox3, euthymic affect Results & Data ([facility]) Vital Signs (Past 12 Hours) Vital Signs Temp Pulse Pulse Pulse Resp BP Pulse Ox 04/13/21 08:13 36.6 C 79 16 125/83 100 04/13/21 07:00 81 04/13/21 02:44 36.5 C 84 18 113/78 98 04/12/21 23:54 96 H 04/12/21 23:02 36.6 C 95 H 20 116/71 95 PG Care Time/CCT Total # of Minutes Spent Total Time Spent with Patient: Total time spent is greater than 50% in coordination of care (as documented) at patient's floor/unit and/or counseling patient: Coding Level of Care Code 99844 Subseq Hosp Care Lvl 3 Diagnoses ESRD (end stage renal disease) on dialysis N18.6; Z99.2 Pleural effusion J90 Acute on chronic respiratory failure with hypoxemia J96.21 Chronic anemia D64.9
--- NOTE | 2021-04-13 11:00 | Palliative Care Consultation ---
Date of Consultation April 13, 2021 Assessment & Plan (1) Anxiety: Long history of anxiety with bipolar disorder. Per her daughter, she has also had history of benzodizepine misuse. We talked about the balance between maintaining her comfort and keeping her safe, particularly with her kidney failure making her more prone to complications with medications. (2) SOB (shortness of breath): Ongoing diuresis with bumex and dialysis with underlying COPD. (3) Abdominal pain: Chronic. She has prn oxycodone. Monitor for sedation. (4) Palliative care encounter: I talked with Zahida about her illness and she has limited insight into how sick she really is. She is frustrated with limitations of fluid intake and medications for pain and anxiety, which is more her focus than overall prognosis. We reviewed her comorbidities and concern that these are life limiting. She told me that she just wanted to live for a few more years to live in [place] with her family and asked if that was possible. I told her that my worry was that time was much shorter than that. She asked about what her dying time would be like and whether she would be in pain. I assured her that we would do everything we could to avoid that. I also discussed her status at full code would likely not lead to the peaceful, comfortable that she says she would want. She agrees. She asked me to talk with her daughter. I spoke with her daughter, Elsa, who is her POA. She understands that Zahida's prognosis is poor and wanted to be notified if she were nearing her dying time. We talked about my discussion with Zahida and the change in code status. Elsa agrees with this and says that she has been wondering if it is time for hospice for her mother. She had been hoping to move her to [place], however, I do not think that Zahida is able to make that trip or that Elsa would be able to care for her at home. Elsa is making plans to come up in the next few days to see her mother and discuss plan of care further. In the meantime, she will be DNR/DNI with continuing current level of care. (5) Acute on chronic respiratory failure with hypoxemia: (6) ESRD (end stage renal disease) on dialysis: (7) Pneumonia: (8) COPD (chronic obstructive pulmonary disease): History of Present Illness Reason for Consultation: goals of care Requesting Physician: Dr. Zavala Attending Physician: Emmanuel Mason DO History of Present Illness 60 yo lady with ESRD on hemodialysis who also has diastolic heart failure, COPD and diabetes. She was admitted with lethargy and shortness of breath and was found to have a right pleural effusion, pneumonia and cystitis. She has been treated with bumex and had removal of 3L fluid in dialysis yesterday but continues to have edema as well as a moderate to large right pleural effusion. She will be going for additional dialysis later today. She complains of feeling short of breath at rest at times. She has also had epistaxis which she attributes to the O2 drying out her nose. She is on humidified O2. She also complains of feeling very tired today after an episode of abdominal pain o vernight. CT did not show any acute cause for pain. She does have chronic pain and takes oxycodone as well as clonazepam for anxiety. She tells me that she is having a lot of pain and feeling very anxious and that "they are not giving my medications so I can be comfortable". Allergies Allergy/AdvReac Type Severity Reaction Status Date / Time shellfish derived Allergy Unknown Unknown Verified 04/06/21 16:15 Home Medications Medication Instructions Recorded Confirmed Type cholecalciferol (vitamin D3) 50 50 mcg PO QAM 08/03/20 04/06/21 History mcg (2,000 unit) capsule lidocaine 5 % topical patch 1 patch TOPICAL DAILY 08/03/20 04/06/21 History oxycodone 5 mg tablet 5 mg PO Q6H PRN 08/03/20 04/06/21 History sodium bicarbonate 650 mg tablet 650 mg PO WM 08/03/20 04/06/21 History ziprasidone HCl 20 mg capsule 20 mg PO BID 08/03/20 04/06/21 History acetaminophen 325 mg tablet 650 mg PO Q6H PRN MDD 3 GMS 10/07/20 04/06/21 History APAP/24 HOURS aspirin 81 mg tablet,delayed 81 mg PO QAM 10/07/20 04/06/21 History release (Aspirin Low Dose) bisacodyl 10 mg rectal suppository 10 mg OH DIRECTED PRN 10/07/20 04/06/21 History (Dulcolax (bisacodyl)) fluticasone fur. 100 mcg-umeclid 1 inh INHALATION DAILY 10/07/20 04/06/21 History 62.5 mcg-vilant 25 mcg inhalat.powder (Trelegy Ellipta) metoprolol succinate 50 mg 50 mg PO BID 10/07/20 04/06/21 History tablet,extended release 24 hr sodium phosphates 19 gram-7 118 ml OH DIRECTED PRN 10/07/20 04/06/21 History gram/118 mL enema (Fleet Enema) hydralazine 10 mg tablet 10 mg PO TID #30 tab 10/19/20 04/06/21 Rx lactulose 20 gram/30 mL oral 30 ml PO DAILY #120 ml 10/19/20 04/06/21 Rx solution omeprazole 20 mg capsule,delayed 20 mg PO DAILY 01/10/21 04/06/21 History release bumetanide 1 mg tablet 1 mg PO .TODAY 01/25/21 04/06/21 History nicotine 7 mg/24 hr daily 1 patch TRANSDERMAL UD 01/25/21 04/06/21 History transdermal patch (Nicoderm CQ) polyethylene glycol 3350 17 17 g PO BID 01/25/21 04/06/21 History gram/dose oral powder potassium chloride 10 mEq 10 meq PO Q OTHER DAY 01/25/21 04/06/21 History tablet,extended release(part/cryst) (Klor-Con M) trazodone 50 mg tablet 50 mg PO HS tab 01/25/21 04/06/21 History insulin aspart U-100 100 unit/mL See Rx Instructions .ROUTE 02/07/21 04/06/21 Rx (3 mL) subcutaneous pen (Novolog .COMPLEX #15 ml Flexpen U-100 Insulin aspart) albuterol sulfate 90 mcg/actuation 2 puff INHALATION Q6H PRN 04/06/21 04/06/21 History aerosol inhaler (Proventil HFA) apixaban 2.5 mg tablet (Eliquis) 2.5 mg PO BID 04/06/21 04/06/21 History calcium acetate(phosphat bind) 667 667 mg PO TIDM 04/06/21 04/06/21 History mg capsule clonazepam 0.5 mg tablet 0.5 mg PO BID 04/06/21 04/06/21 History dicyclomine 20 mg tablet 20 mg PO TID 04/06/21 04/06/21 History guaifenesin 600 mg tablet, 600 mg PO BID 04/06/21 04/06/21 History extended release 12 hr (Mucinex) Patient History Medical History Acute alteration in mental status Amputation of left great toe Anemia Benign essential hypertension delivery delivered Chronic hypoxemic respiratory failure Chronic renal insufficiency, stage IV (severe) CVA (cerebral vascular accident) Diabetic nephropathy 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, limited to breakdown of skin Diastolic CHF, acute on chronic End stage renal disease Hypervolemia associated with renal insufficiency Hypoglycemia Hypoxemia Insomnia Lethargy Pneumonia due to 2019 novel coronavirus Pressure ulcer of BKA stump, stage 2 Shortness of breath Traumatic open wound of left lower leg Volume overload Surgical History Hx of right BKA Social History Smoking Status: Former smoker Tobacco Type: Cigarettes packs per day: 2; Years Smoked: 40; Cigarettes Per Day: 2 packs; Smoking End Date: June 2020; Second Hand Exposure: Yes; Do You Dip or Chew Tobacco: No; Tobacco Cessation Education Requested by Patient: Yes Hx Alcohol Use: Yes Alcohol type: beer, wine and hard liquor Hx Substance Use: No Preferred Language: Italian Communication Ability: Effective Electronic Development Technician Required: No Beliefs That Will Affect Care: None marital status: Unknown Current Living Situation: Personal Care Facility Current Living Situation Comment: [facility] current occupational status: unemployed and disabled 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 How many Children do You have: 2 Feels Safe at Home: Yes Safety Concerns: Feels Safe At This Time caffeine: Yes Dental Care, Regularly: No Assistive Devices: Oxygen - Continuous Assistive Devices Comment: Glasses at home Review of Systems Review of Systems: [place] Symptom Assessment Scale Pain 2/3 Dyspnea 2/3 Anxiety 3/3 Nausea 0/3 Fatigue 2/3 Drowsiness 1/3 Palliative Performance Score 30% Physical Exam Constitutional: somnolent but easily arousable, appears comfortable at rest Respiratory: + uses accessory muscles Cardiovascular: Rate/Rhythm: regular rate and regular rhythm Gastrointestinal (Abdomen): distended Musculoskeletal: right BKA Neurologic: awake; not confused Psychiatric: Orientation: oriented x 3 Affect: + anxious affect Mood: + anxious mood Results & Data ([facility]) Vital Signs (Past 12 Hours) Vital Signs Temp Pulse Pulse Pulse Resp BP Pulse Ox 04/13/21 08:13 97.9 F 79 16 125/83 100 04/13/21 07:00 81 04/13/21 02:44 97.7 F 84 18 113/78 98 04/12/21 23:54 96 H 04/12/21 23:02 97.9 F 95 H 20 116/71 95 PG Care Time/CCT Total # of Minutes Spent Total Time Spent: 110 Total Time Spent with Patient: Total time spent is greater than 50% in coordination of care (as documented) at patient's floor/unit and/or counseling patient:goals of care, prognosis, code status, hospice, symptom management Coding Level of Care Code 27514 Initial Inpt Care Lvl 3 Diagnoses Abdominal pain R10.9 SOB (shortness of breath) R06.02 Palliative care encounter Z51.5 Acute on chronic respiratory failure with hypoxemia J96.21 ESRD (end stage renal disease) on dialysis N18.6; Z99.2 Pneumonia J18.9 COPD (chronic obstructive pulmonary disease) J44.9 Anxiety F41.9 Time Spent (min) 110
[2021-04-13] MEDS: PIPERACILLIN/TAZOBACTAM 3.375 GM in DEXTROSE 5% 100 ML IV SCH (12:26)
--- NOTE | 2021-04-13 13:25 | Pharmacy Report ---
Pharmacy Abx Dose Short Note - Date of Service April 13, 2021 - Assessment & Plan Assessment 60 year old F receiving Vancomycin for treatment of Pneumonia. * Pleural fluid culture 1/2 NGTD * Day #7 of antimicrobial therapy (orders will d/c this evening) Plan Vancomycin * Patient received HD yesterday and is ordered to have an additional HD session today * Will order a one time dose of vanco 500 mg IV to be given after HD today * Predict therapeutic drug level ~ 18 mcg/mL after that dose Pharmacy will continue to follow and will adjust dose/frequency as necessary. Thank you.
--- NOTE | 2021-04-13 16:44 | Communication Note ---
Date of Service: April 13, 2021 I went to see the patient, but she is currently in dialysis. Nursing reports that she is stable. She has had some epistaxis and hemoptysis. Likely this is the result of nasal mucosal drying from continuous oxygen supplementation. Discussed with nursing to try to titrate oxygen off as her saturations have been persistently in the high 90s. Can use humidified oxygen as needed to maintain saturations above 88%. Hemoglobin stable. Hillaryaundrea is on hold due to potential thoracentesis. I will reevaluate her tomorrow morning for thoracentesis.
[2021-04-13] MEDS ORDERED: VANCOMYCIN HCL 500 MG in 0.9 % SODIUM CHLORIDE 100 ML IV SCH (18:00)
--- NOTE | 2021-04-13 18:56 | Electrocardiogram Report ---
Test Reason : Blood Pressure : / mmHG Vent. Rate : 084 BPM Atrial Rate : 084 BPM P-R Int : 158 ms QRS Dur : 084 ms QT Int : 370 ms P-R-T Axes : 046 025 073 degrees QTc Int : 437 ms Normal sinus rhythm Possible Left atrial enlargement Borderline ECG When compared with ECG of 09-APR-2021 22:57, Premature atrial complexes are no longer Present Nonspecific T wave abnormality now evident in Lateral leads QT has shortened Confirmed by Rainer Escalante ([id number]) on 04/13/2021 6:56:11 PM Referred By: Omega Namrodney Confirmed By:Rony Escalante
[2021-04-13] MEDS: traZODone HCL 50 MG TAB PO SCH (21:36)
[2021-04-13] MEDS: LIDOCAINE 5% 1 PATCH TD SCH (21:38)
[2021-04-14] MEDS: PIPERACILLIN/TAZOBACTAM 3.375 GM in DEXTROSE 5% 100 ML IV SCH (01:42)
[2021-04-14] MEDS: oxyCODONE HCL IR 5 MG TAB (IMMEDIATE RELEASE) PO PRN ×3 (01:44→18:05)
[2021-04-14] MEDS: clonazePAM 0.5 MG TAB PO PRN (04:33)
[2021-04-14] MEDS: ONDANSETRON INJ 2 MG/ML 2 ML VIAL IV PRN (04:33)
[2021-04-14 07:43] LABS: Calcium 8.7 mg/dl (8.5-10.1); Creatinine Clr Calc Pharmacy 40.7 ml/min; Est GFR (African American) 36.6 ml/min; Est GFR (Non-African American) 31.5 ml/min; Potassium 4.3 mmol/L (3.5-5.1)
[2021-04-14] MEDS: INSULIN ASPART 100 UNITS/ML 3 ML PEN SC SCH ×4 (08:40→21:24)
[2021-04-14] MEDS: METOPROLOL SUCC 50MG EXT REL TAB PO SCH ×2 (08:43→21:21)
[2021-04-14] MEDS: CALCIUM ACETATE 667 MG CAP/TAB PO SCH ×3 (08:43→17:15)
[2021-04-14] MEDS: ACETAMINOPHEN 325 MG TAB PO SCH ×4 (08:43→21:21)
[2021-04-14] MEDS: guaiFENesin 600 MG TABCR PO SCH ×2 (08:43→21:20)
[2021-04-14] MEDS: DICLOFENAC SOD 1% GEL 100 GM TUBE EXT SCH ×4 (08:48→21:22)
[2021-04-14] MEDS: LACTULOSE SYRUP 20 GM/30 ML UDC PO SCH (08:48)
[2021-04-14] MEDS: INSULIN GLARGINE SOLOSTAR 100 UNITS/ML 3 ML PEN SC SCH (08:48)
[2021-04-14] MEDS: UMECLIDINIUM/VILANTEROL 62.5/25MCG 7 PUFFS/INHALER INH SCH (08:48)
[2021-04-14] MEDS: FLUTICASONE FUROATE 100MCG 14 PUFFS/INHALER INH SCH (08:49)
[2021-04-14] MEDS: POLYETHYLENE (MIRALAX) 17 GM PACK PO SCH (08:50)
[2021-04-14] MEDS ORDERED: LORazepam 0.5 MG/1 ML VIAL IV STA (08:54)
[2021-04-14] MEDS: NEPHROCAPS PO SCH (09:05)
[2021-04-14] MEDS: PANTOprazole 40 MG TAB PO SCH (09:06)
[2021-04-14] MEDS: BUMETANIDE 1 MG TAB PO SCH ×2 (09:10→18:05)
--- NOTE | 2021-04-14 09:49 | Palliative Care Progress Note ---
Date of Service April 14, 2021 Assessment & Plan (1) Anxiety: Plan: with bipolar disorder. Continue current medications (2) Palliative care encounter: Plan: She is showing some improvement with dialysis and diuresis. Per discussions with her daughter, Elsa, she is considering a comfort directed approach to her care. She has been planning to come up from [place] to visit her mother. Unfortunately, her children have been exposed to covid at school and are on quarantine. I spoke with the hospitalist team and also with Elsa on the phone for 25 minutes. At this point, Zahida is showing modest improvement and may be able to stabilize for return to [facility]. Elsa's hope is that she would then be able to transfer to a facility in [place] near her home. I did recommend to Elsa that she not try to [place] at this time as she would not be able to visit her mother with a covid exposure. We will try to arrange a zoom visit in the next day or two. (3) Pleural effusion: (4) ESRD (end stage renal disease) on dialysis: (5) Pneumonia: (6) COPD (chronic obstructive pulmonary disease): Admission and Anticipated Discharge Date Admission Date: April 06, 2021 Subjective Very anxious this morning. Was not able to tolerate thoracentesis. Nearly 3L fluid taken off in dialysis yesterday. Review of Systems Review of Systems: [place] Symptom Assessment Scale Pain2/3 Dyspnea 1/3 Anxiety 3/3 Fatigue2/3 Nausea 0/3 Drowsiness 0/3 Palliative Performance Score 30% Physical Exam Constitutional: + uncomfortable Respiratory: + uses accessory muscles Cardiovascular: Rate/Rhythm: regular rate and regular rhythm Musculoskeletal: right BKA Psychiatric: Affect: + anxious affect Mood: + anxious mood Results & Data ([facility]) Vital Signs (Past 12 Hours) Vital Signs Temp Pulse Pulse Resp BP Pulse Ox 04/14/21 08:06 97.9 F 87 16 150/95 H 96 04/14/21 07:33 89 04/14/21 03:50 97.9 F 84 20 130/84 95 04/13/21 23:08 97.7 F 86 20 119/77 95 04/13/21 23:00 86 PG Care Time/CCT Total # of Minutes Spent Total Time Spent: 40 Total Time Spent with Patient: Total time spent is greater than 50% in coordination of care (as documented) at patient's floor/unit and/or counseling patient: coordination of care, family education and support Coding Level of Care Code 13743 Subseq Hosp Care Lvl 3 Diagnoses Anxiety F41.9 Palliative care encounter Z51.5 Pleural effusion J90 ESRD (end stage renal disease) on dialysis N18.6; Z99.2 Pneumonia J18.9 COPD (chronic obstructive pulmonary disease) J44.9
--- NOTE | 2021-04-14 10:29 | Nephrology Progress Note ---
Date of Service April 14, 2021 Assessment & Plan (1) ESRD (end stage renal disease) on dialysis: (2) Pleural effusion: (3) Acute on chronic respiratory failure with hypoxemia: (4) Chronic anemia: Plan: 60-year-old female with end-stage renal disease secondary to diabetic nephropathy and ATN with non recovery. has been on dialysis Sunday at [facility]. Admitted to the hospital with respiratory failure secondary to large right pleural effusion. Had paracentesis yesterday with improvement in respiratory status. She has also been getting dialysis with mom almost 3-4 liters of UF. She continues to have significant lower extremity edema which has been chronic and most likely secondary to hypoalbuminemia as well. -- continue daily dialysis for UF with low blood flow to improve overall volume status. -- continue on Bumex 2 mg orally once a day -- received JAYNE 17679 units with HD. -- encourage protein intake -- dose medications for GFR less than 10 will follow Admission and Anticipated Discharge Date Admission Date: April 06, 2021 Miriam Teague was seen in her room this morning. She has been very anxious this morning, complaining of pain all over, refused to have thoracentesis this morning. the blood pressure relatively low, electrolyte acceptable. Had 3 L UF yesterday. Review of Systems Review of Systems: Details review of system was otherwise unremarkable. Physical Exam Constitutional: + ill appearing; no acute distress Respiratory: Auscultation: + diminished lung sounds Cardiovascular: RRR, no murmur, no edema Extremities: + edema Gastrointestinal (Abdomen): Percussion/Palpation: + abdomen tender and + ascites; no guarding and abdomen not rigid Neurologic: moves all extremities and awake; not confused Psychiatric: Affect: + anxious affect Results & Data ([facility]) Vital Signs (Past 12 Hours) Vital Signs Temp Pulse Pulse Pulse Resp BP BP 04/14/21 09:47 92 H 99/71 L 04/14/21 09:41 37.0 C 91 H 04/14/21 08:06 36.6 C 87 16 150/95 H 04/14/21 07:33 89 04/14/21 03:50 36.6 C 84 20 130/84 04/13/21 23:08 36.5 C 86 20 119/77 04/13/21 23:00 86 Pulse Ox 04/14/21 09:47 04/14/21 09:41 04/14/21 08:06 96 04/14/21 07:33 04/14/21 03:50 95 04/13/21 23:08 95 04/13/21 23:00 PG Care Time/CCT Total # of Minutes Spent Total Time Spent with Patient: Total time spent is greater than 50% in coordination of care (as documented) at patient's floor/unit and/or counseling patient: Coding Level of Care Code 85269 Subseq Hosp Care Lvl 3 Diagnoses ESRD (end stage renal disease) on dialysis N18.6; Z99.2 Pleural effusion J90 Acute on chronic respiratory failure with hypoxemia J96.21 Chronic anemia D64.9
--- NOTE | 2021-04-14 10:40 | Pulmonology Progress Note ---
Date of Service April 14, 2021 Assessment & Plan (1) Hypervolemia associated with renal insufficiency: (2) Dialysis patient: (3) Chronic respiratory failure: Respiratory failure complication: hypoxia Qualified Code(s): J96.11 - Chronic respiratory failure with hypoxia (4) Acute on chronic right-sided congestive heart failure: (5) Pleural effusion: (6) Severe anxiety: Plan: 60-year-old female with a history of end-stage renal disease on hemodialysis, chronic hypoxemic respiratory failure and polypharmacy who presented to the hospital due to increasing shortness of breath. Hypervolemia: Multifactorial related to end-stage renal disease and hypoalbuminemia. Surprisingly, imaging does not suggest cirrhosis. She has a component of diastolic heart failure which is also contributing. I had a discussion with rehabilitation engineer, Dr. Hollis and she noted that she will try consecutive daily hemodialysis to attempt to get some more fluid off. Fluid status does appear to be improving with more aggressive dialysis. Recurrent right pleural effusion: Thoracentesis was completed on 04/08/2021 which yielded approximately 1500 mL of transudative effusion. Can consider placement of a Pleurx catheter or chemical pleurodesis if the pleural effusion is refractory to more aggressive hemodialysis. Cultures and cytology are negative negative from the pleural fluid on 04/08/2021. Patient is very anxious and reluctant to undergo a thoracentesis. I evaluated the right pleural effusion with ultrasound today which did demonstrate fibrin strands. This represents l ikely a chronic loculated effusion. I reviewed the CT abdomen from yesterday which demonstrated a moderate sized right pleural effusion with compressive atelectasis. Trace ascites was noted. Chronic hypoxemic respiratory failure: Significantly improved with removal of volume. Secondary pulmonary hypertension: Echo from 04/07/2021 suggest a normal EF. Moderate concentric LVH was noted. Possible moderate mitral regurgitation was noted. Mild mitral stenosis described. Severe tricuspid regurgitation. RVSP was estimated 59 mmHg. Palliative care is on board. Think a more palliative approach to her care is certainly reasonable. Her overall prognosis is poor. I discussed her case with Dr. Mason who is the attending physician with the resident service this week. We will likely hold off on repeat thoracentesis given her severe anxiety and improved symptoms. Admission and Anticipated Discharge Date Admission Date: April 06, 2021 Subjective And seen and examined this morning. She is very anxious and at times yelling out at me and nursing staff. She was refusing a thoracentesis without Ativan or Klonopin. She was reminded that is to receive Klonopin this morning and that she had trouble with higher doses of benzodiazepines earlier in the hospita lization requiring a code purple event. She oftentimes yells out that she is short of breath that she has pain all over. She is currently saturating 96% on room air. She has been tolerating her hemodialysis sessions. She does seem more awake today. Review of Systems Review of Systems: All systems reviewed & are unremarkable except as noted in HPI & below Physical Exam Physical Exam: Constitutional: Disheveled appearing female no apparent distress. Eyes: Pupils are equal round and reactive to light. Conjunctivae are normal. Anicteric sclera. Ears nose, mouth and throat: No obvious deformities. Neck: Trachea is midline. Visual inspection is normal. Respiratory: Diminished lung sounds on the right. Mild crackles bilaterally. Cardiovascular: Regular rate and rhythm. No murmurs. 1+ edema Gastrointestinal: Normal bowel sounds, soft, nontender and nondistended. No hepatosplenomegaly noted. Musculoskeletal: No cyanosis. Patient is able to move all extremities. Right BKA noted. Skin: No rashes, warm dry and intact. Neurologic: No obvious focal neurological deficits seen. Psychiatric: Alert and oriented x3 with a euthymic affect. Results & Data Results & Data ([facility]) Vital Signs (Past 12 Hours) Vital Signs Temp Pulse Pulse Pulse Resp BP BP 04/14/21 10:20 87 131/76 04/14/21 10:00 89 104/66 04/14/21 09:47 92 H 99/71 L 04/14/21 09:41 98.6 F 91 H 04/14/21 08:06 97.9 F 87 16 150/95 H 04/14/21 07:33 89 04/14/21 03:50 97.9 F 84 20 130/84 04/13/21 23:08 97.7 F 86 20 119/77 04/13/21 23:00 86 Pulse Ox 04/14/21 10:20 04/14/21 10:00 04/14/21 09:47 04/14/21 09:41 04/14/21 08:06 96 04/14/21 07:33 04/14/21 03:50 95 04/13/21 23:08 95 04/13/21 23:00 vital signs, labs and imaging personally reviewed PG Care Time/CCT Total # of Minutes Spent Total Time Spent with Patient: Total time spent is greater than 50% in coordination of care (as documented) at patient's floor/unit and/or counseling patient: Coding Level of Care Code 70671 Subseq Hosp Care Lvl 3 Diagnoses Hypervolemia associated with renal insufficiency E87.70; N28.9 Dialysis patient Z99.2 Chronic respiratory failure J96.11 Respiratory failure complication: hypoxia Acute on chronic right-sided congestive heart failure I50.813 Pleural effusion J90 Severe anxiety F41.9
--- NOTE | 2021-04-14 17:08 | Hospitalist Progress Note ---
Date of Service April 14, 2021 Assessment & Plan (1) Pleural effusion: Plan: SOB secondary to R pleural effusion and PNA -received additional dialysis today (2.7 L removed from dialysis yesterday) -spoke with pulmonology about possible repeat thoracentesis; pt strongly refused thoracentesis today; will reevaluate and revisit tomorrow * Eliquis still on hold Polypharmacy -5 mg oxycodone q4hr PRN -clonazepam 0.5mg BID PRN; might wean off if anxiety improves off benzo -per nurse, did not receive any PRN clonazepam today -will continue to monitor Suspect UTI -CT ab/pelvis with findings suggestive of cystitis, UA with epithelial cells concerning for contamination. -Difficult to correlate symptoms due to patients awareness and lack of urination -Coverage with Zosyn Acute on chronic HFpEF -In acute exacerbation, BNP >35k -Minimal urine output -Nephrology scheduling dialysis sunday; 2.7 L removed yesterday -fluid restrict 1800 mL daily -consecutive daily dialysis Paroxysmal AFib -Eliquis on hold -Continue Toprol 50mg BID Hypertension -Still holding hydralazine -Continuing Metoprolol -Holding ASA COPD -On Mucinex, Anoro Ellipta, Arnuity Ellipta ESRD on Dialysis -Dialysis T, , Sat, no dialysis today * 3L removed yesterday -Nephrology still following -Continue Phoslo -Nephrocaps QD Bipolar disorder -Continue home Ziprasidone -Continue home Trazodone (2) Diastolic CHF, acute on chronic: (3) ESRD (end stage renal disease) on dialysis: (4) Pneumonia: (5) SOB (shortness of breath): (6) Polypharmacy: (7) Elevated WBC count: Admission and Anticipated Discharge Date Admission Date: April 06, 2021 Supervising Physician Co-Signing Physician Notes I personally examined and confirmed senior portions of the history and exam. I also discussed the case with palliative care, nephrology, and pulmonology consultants. During our morning exam, patient is somewhat anxious. She is just about to go to hemodialysis. She had met with pulmonary medicine previously and was resistant to the idea of repeat thoracentesis. EXAM 153/94, 89, 16, 36.9, percent on room air She is alert and oriented. Respirations non labored. Data Sodium 131, testing 4.3, BUN 19, creatinine 1.75 Assessment and Plan I agree with the impression and plan as noted in the resident documentation. Pneumonia/parapneumonic effusion End-stage renal disease on hemodialysis Hemodialysis again today, which is fourth consecutive day Slowly some improvement in her overall fluid status, although her pleural effusion does not seem to be improving. Pulmonology will reevaluate for possible repeat thoracentesis tomorrow, 04/15/2021 We discussed if the patient again defers tomorrow, will restart anticoagulation. Palliative care consultation appreciated. I think the current goal would be to see if we can improve her volume status through hemodialysis, thus her quality of life. If he can stabilize her enough to return to the [facility], she can continue hemodialysis from there. She has some thoughts of moving to [place] to be closer to her daughter, although I do not think this would be possible in her current condition. Additional Diagnosis as per resident note. Subjective Patient was on her way to dialysis this morning. Could not examine. Was seen by Dr. Mason Review of Systems Constitutional: as per Subjective / HPI Results & Data Results & Data ([facility]) Vital Signs (Past 12 Hours) Vital Signs Temp Pulse Pulse Pulse Resp BP BP 04/14/21 15:50 36.9 C 86 16 153/94 H 04/14/21 15:05 36.6 C 83 165/103 H 04/14/21 14:20 83 164/101 H 04/14/21 14:00 84 154/94 H 04/14/21 13:40 85 153/97 H 04/14/21 13:20 84 181/95 H 04/14/21 13:00 87 155/99 H 04/14/21 12:40 87 176/95 H 04/14/21 12:20 92 H 174/103 H 04/14/21 12:00 91 H 162/104 H 04/14/21 11:40 89 152/99 H 04/14/21 11:20 90 132/86 04/14/21 11:00 93 H 139/87 04/14/21 10:40 93 H 122/81 04/14/21 10:20 87 131/76 04/14/21 10:00 89 104/66 04/14/21 09:47 92 H 99/71 L 04/14/21 09:41 37.0 C 91 H 04/14/21 08:06 36.6 C 87 16 150/95 H 04/14/21 07:33 89 Pulse Ox 04/14/21 15:50 100 04/14/21 15:05 04/14/21 14:20 04/14/21 14:00 04/14/21 13:40 04/14/21 13:20 04/14/21 13:00 04/14/21 12:40 04/14/21 12:20 04/14/21 12:00 04/14/21 11:40 04/14/21 11:20 04/14/21 11:00 04/14/21 10:40 04/14/21 10:20 04/14/21 10:00 04/14/21 09:47 04/14/21 09:41 04/14/21 08:06 96 04/14/21 07:33 Resident Activity Tracking Resident Involvement: Resident Care Provided Care Provided: Adult [facility] Medicine
[2021-04-14] MEDS: traZODone HCL 50 MG TAB PO SCH (21:20)
[2021-04-14] MEDS: LIDOCAINE 5% 1 PATCH TD SCH (21:21)
[2021-04-15] MEDS: oxyCODONE HCL IR 5 MG TAB (IMMEDIATE RELEASE) PO PRN ×2 (05:16→19:41)
[2021-04-15] MEDS ORDERED: SODIUM CHLORIDE 0.9% 1000ML 1,000 ML IV PRN (07:00)
[2021-04-15 08:20] LABS: Hematocrit (blood only) 29.6 % (37-47); Mean Corpuscular Hemoglobin 29.7 pg (25-34); Mean Corpuscular Hgb Conc 30.4 g/dL (32-36); Mean Corpuscular Volume 97.7 fL (80-100); Mean Platelet Volume 9.7 fL (7.4-10.4); Nucleated RBC # (auto) 0.03 K/uL (0-0); Nucleated RBC % (auto) 0.4 %; Platelet Count 277 K/uL (130-400); RDW Coefficient of Variation 18.1 % (11.5-14.5); RDW Standard Deviation 64.8 fL (36.4-46.3); Red Blood Count 3.03 M/uL (4.2-5.4)
[2021-04-15 08:58] LABS: BUN Creatinine Ratio 13.9 (10-20); Calcium 9.1 mg/dl (8.5-10.1); Creatinine Clr Calc Pharmacy 26.5 ml/min; Potassium 4.7 mmol/L (3.5-5.1)
[2021-04-15] MEDS: INSULIN ASPART 100 UNITS/ML 3 ML PEN SC SCH ×4 (09:04→21:40)
[2021-04-15] MEDS: INSULIN GLARGINE SOLOSTAR 100 UNITS/ML 3 ML PEN SC SCH (09:05)
[2021-04-15] MEDS: ACETAMINOPHEN 325 MG TAB PO SCH ×4 (09:05→21:34)
[2021-04-15] MEDS: SIMETHICONE 80 MG CHEW PO PRN (09:06)
[2021-04-15] MEDS: guaiFENesin 600 MG TABCR PO SCH ×2 (09:06→21:35)
[2021-04-15] MEDS: METOPROLOL SUCC 50MG EXT REL TAB PO SCH ×2 (09:07→21:35)
[2021-04-15] MEDS: BUMETANIDE 1 MG TAB PO SCH ×2 (09:07→18:33)
[2021-04-15] MEDS: CALCIUM ACETATE 667 MG CAP/TAB PO SCH ×3 (09:07→18:09)
[2021-04-15] MEDS: PANTOprazole 40 MG TAB PO SCH (09:08)
[2021-04-15] MEDS: LACTULOSE SYRUP 20 GM/30 ML UDC PO SCH (09:08)
[2021-04-15] MEDS: DICLOFENAC SOD 1% GEL 100 GM TUBE EXT SCH ×4 (09:08→21:36)
[2021-04-15] MEDS: NEPHROCAPS PO SCH (09:08)
[2021-04-15] MEDS: POLYETHYLENE (MIRALAX) 17 GM PACK PO SCH (09:09)
[2021-04-15] MEDS: UMECLIDINIUM/VILANTEROL 62.5/25MCG 7 PUFFS/INHALER INH SCH (09:10)
[2021-04-15] MEDS: clonazePAM 0.5 MG TAB PO PRN (09:10)
[2021-04-15] MEDS: FLUTICASONE FUROATE 100MCG 14 PUFFS/INHALER INH SCH (09:10)
--- NOTE | 2021-04-15 10:16 | Nephrology Progress Note ---
Date of Service April 15, 2021 Assessment & Plan (1) ESRD (end stage renal disease) on dialysis: (2) Pleural effusion: (3) Acute on chronic respiratory failure with hypoxemia: (4) Chronic anemia: Plan: 60-year-old female with end-stage renal disease secondary to diabetic nephropathy and ATN with non recovery. has been on dialysis Sunday at [facility]. Admitted to the hospital with respiratory failure secondary to large right pleural effusion. Had paracentesis yesterday with improvement in respiratory status. She has also been getting dialysis with mom almost 3-4 liters of UF. She continues to have significant lower extremity edema which has been chronic and most likely secondary to hypoalbuminemia as well. -- continue daily ultrafiltration, although she is having 3-4 L ultrafiltration every day, improvement in volume status is not as expected. plan for ultrafiltration again tomorrow for 4 hours and reassess over the weekend. -- increase Bumex 2 mg orally twice a day -- received JAYNE 62962 units with HD. -- encourage protein intake -- dose medications for GFR less than 10 will follow Admission and Anticipated Discharge Date Admission Date: April 06, 2021 Subjective Zahida was seen this morning, she continues to be bothered by significant pain , "everywhere". reports her breathing is better, O2 sat 100% on 2 L nasal cannula. Her weight and intake and output is grossly inaccurate. clinically she continues to be volume overloaded but there is definitely some improvement. Review of Systems Review of Systems: Details review of system was otherwise unremarkable. Physical Exam Constitutional: + ill appearing and + lethargic; no acute distress Respiratory: Auscultation: + diminished lung sounds Cardiovascular: RRR, no murmur, no edema Extremities: + edema Gastrointestinal (Abdomen): Percussion/Palpation: + abdomen tender and + ascites; no guarding and abdomen not rigid Neurologic: moves all extremities and awake; not confused Psychiatric: A+Ox3, euthymic affect Affect: + anxious affect Results & Data ([facility]) Vital Signs (Past 12 Hours) Vital Signs Temp Pulse Pulse Pulse Resp BP Pulse Ox 04/15/21 07:28 77 04/15/21 07:13 36.7 C 77 16 144/94 H 100 04/15/21 05:00 84 04/14/21 23:03 36.7 C 85 20 144/91 H 98 PG Care Time/CCT Total # of Minutes Spent Total Time Spent with Patient: Total time spent is greater than 50% in coordination of care (as documented) at patient's floor/unit and/or counseling patient: Coding Level of Care Code 99966 Subseq Hosp Care Lvl 3 Diagnoses ESRD (end stage renal disease) on dialysis N18.6; Z99.2 Pleural effusion J90 Acute on chronic respiratory failure with hypoxemia J96.21 Chronic anemia D64.9
--- NOTE | 2021-04-15 11:47 | Hospitalist Progress Note ---
Date of Service April 15, 2021 Assessment & Plan (1) Pleural effusion: Plan: Zahida Garay is a 60 year old female with PMHx ESRD on dialysis, diastolic CHF, COPD, DM2, who presents with chief complaint of worsening shortness of breath. Acute on chronic HFpEF with bilateral pleural effusions - In acute exacerbation, BNP >35k - Minimal urine output - fluid restrict 1800 mL daily - Patient continues to have significant SOB -Continues to receive daily ultrafiltration per nephrology recs, but ultimately has not lost much weight despite over 20L removed overall - seems like her nutritional status/decreased albumin is causing fluid to build up again -Pulmonology has performed thoracentesis--so far, due to patient preference and likely recurrence of effusion, no plans to repeat - Restart Eliquis today Malnutrition - Albumin low in the low 2's - Likely major contributor to her continued fluid buildup despite daily dialysis with total ~20L removed - Will consult dietary for supplementation/nutrition recs Suspect UTI -CT ab/pelvis with findings suggestive of cystitis, UA with epithelial cells concerning for contamination. -Difficult to correlate symptoms due to patients awareness and lack of urination -Will treat with CTX 1g daily x9p--zmuin will be day #1 Pneumonia - MRSA nares positive - On contact precautions - Treated with vancomycin x 5 days -- now finished treatment - WBC normalized ESRD on Dialysis -Daily dialysis as above -Nephrology following -Continue Phoslo -Nephrocaps QD Elevated WBC -- resolved -WBC count now normalized from initial elevation on admission -continue to monitor Paroxysmal AFib -Restart Eliquis -Continue Toprol 50mg BID Hypertension -Holding hydralazine -Continuing Metoprolol -Holding ASA COPD -On Mucinex, Anoro Ellipta, Arnuity Ellipta Bipolar disorder -Home ziprasidone on hold -Continue home Trazodone FENGI: Carb consistent, Dialysis, fluid restriction to 1800mL, easy to chew Dispo: Med/Surg with Tele DVT ppx: On Eliquis CODE: FULL (2) Diastolic CHF, acute on chronic: (3) ESRD (end stage renal disease) on dialysis: (4) Pneumonia: (5) SOB (shortness of breath): (6) Polypharmacy: (7) Elevated WBC count: Admission and Anticipated Discharge Date Admission Date: April 06, 2021 Supervising Physician Co-Signing Physician Notes Patient seen and examined with PGY-2 Dr. Puckett. Agree with history, exam findings, assessment and plan of care as outlined. In brief, Zahida is a 60 year old female with history significant for ESRD (HD //Sun), HTN, pAF, and bipolar disorder admitted with parapneumonic effusion/respiratory failure. Seen in dialysis today. Overall, feels ok. Feels comfortable on current oxygen. Does have intermittent chest pain now and then that tends to self resolve. This is a chronic issue for her. She is nearly anuric. No dysuria. Vital signs and nursing notes reviewed. Ill appearing, but non-toxic. Heart with regular rate and rhythm. Decreased breath sounds in the bilateral bases. +1-2 pitting edema to the hip. labs and imaging reviewed. 1. parapneumonic effusion. Has received HD x 5 days in a row--taken off nearly 20 liters without significant improvement in fluid balance. Poor nutritional status also likely contributing. Nutrition recs appreciated. Appreciate palliative recs. 2. pneumonia. Completed course of vancomycin for this. 3. Cystitis. Seen on CT. Difficult to know whether she is having symptoms as she is anuric. Will cover with a 3 days course of ceftriaxone. 4. acute on chronic HFpEF. fluid restricted to 1800mL. 5. pAF. Continue metoprolol. Restarted Eliquis as she is not inclined to pursue another thoracentesis. 6. ESRD on HD (//Sun). Continue dialysis per nephrology. Appreciate recommendations. 7. HTN. Blood pressures on the lower end. Holding home hydralazine. Continue metoprolol. Dispo: pending clinical improvement. Subjective Patient initially complaining of SOB this AM but her nasal cannula was not on correctly. Once I adjusted it she felt better and her O2 sat improved to 96%. Also reported some chest discomfort last night but none today. Says it was reproducible on chest wall when occurring. Legs continue to be swollen. Review of Systems Review of Systems: All systems reviewed & are unremarkable except as noted in Subjective Physical Exam Physical Exam: GENERAL: A&Ox3. NAD. HEENT: PERRL, EOMI. Moist mucous membranes. CHEST/LUNGS: Decreased lung sounds at the bases bilaterally. No crackles, wheezes, rales, rhonchi. HEART: RRR. No m/g/r. No carotid bruits. ABDOMEN: NT/ND, soft. BS+ x4 EXTREMITIES: 2+ pitting edema up to hips bilaterally. No cyanosis, no clubbing. SKIN: Warm and dry. No rashes or lesions. Results & Data Results & Data ([facility]) Vital Signs (Past 12 Hours) Vital Signs Temp Pulse Pulse Resp BP Pulse Ox 04/15/21 10:58 36.6 C 75 16 133/83 99 04/15/21 07:28 77 04/15/21 07:13 36.7 C 77 16 144/94 H 100 04/15/21 05:00 84 Resident Activity Tracking Resident Involvement: Resident Care Provided Care Provided: Adult Hospital Medicine
[2021-04-15] MEDS: cefTRIAXone SODIUM 2,000 MG in DEXTROSE 5% 50 ML IV SCH (18:33)
[2021-04-15] MEDS: traZODone HCL 50 MG TAB PO SCH (21:36)
[2021-04-15] MEDS: LIDOCAINE 5% 1 PATCH TD SCH (21:39)
[2021-04-15] MEDS: APIXABAN 2.5 MG TAB PO SCH (21:39)
[2021-04-16 06:36] LABS: Basophils # (auto) 0.06 K/uL (0-0.2); Basophils % (auto) 0.5 %; Eosinophils # (auto) 0.32 K/uL (0-0.5); Eosinophils % (auto) 2.8 %; Hematocrit (blood only) 30.2 % (37-47); Hemoglobin 9.3 g/dL (12.0-16.0); Immature Granulocytes # (auto) 0.12 K/uL (0.00-0.02); Immature Granulocytes % (auto) 1.1 %; Lymphocytes # (auto) 0.78 K/uL (1.2-3.4); Lymphocytes % (auto) 6.9 %; Mean Corpuscular Hemoglobin 29.3 pg (25-34); Mean Corpuscular Hgb Conc 30.8 g/dL (32-36); Mean Corpuscular Volume 95.3 fL (80-100); Monocytes # (auto) 1.21 K/uL (0.11-0.59); Monocytes % (auto) 10.7 %; Neutrophils # (auto) 8.78 K/uL (1.4-6.5); Nucleated RBC # (auto) 0.03 K/uL (0-0); Nucleated RBC % (auto) 0.2 %; Platelet Count 300 K/uL (130-400); RDW Coefficient of Variation 18.3 % (11.5-14.5); Red Blood Count 3.17 M/uL (4.2-5.4); White Blood Count 11.27 K/uL (4.8-10.8)
[2021-04-16 07:01] LABS: BUN Creatinine Ratio 14.1 (10-20); Calcium 9.2 mg/dl (8.5-10.1); Creatinine Clr Calc Pharmacy 20.8 ml/min; Est GFR (African American) 16.4 ml/min; Est GFR (Non-African American) 14.2 ml/min; Potassium 4.8 mmol/L (3.5-5.1)
[2021-04-16] MEDS: APIXABAN 2.5 MG TAB PO SCH ×2 (09:07→20:46)
[2021-04-16] MEDS: ACETAMINOPHEN 325 MG TAB PO SCH ×4 (09:07→20:44)
[2021-04-16] MEDS: CALCIUM ACETATE 667 MG CAP/TAB PO SCH ×3 (09:07→17:20)
[2021-04-16] MEDS: INSULIN ASPART 100 UNITS/ML 3 ML PEN SC SCH ×4 (09:07→21:38)
[2021-04-16] MEDS: DICLOFENAC SOD 1% GEL 100 GM TUBE EXT SCH ×4 (09:08→20:49)
[2021-04-16] MEDS: LACTULOSE SYRUP 20 GM/30 ML UDC PO SCH (09:08)
[2021-04-16] MEDS: BUMETANIDE 1 MG TAB PO SCH ×2 (09:08→17:21)
[2021-04-16] MEDS: PANTOprazole 40 MG TAB PO SCH (09:08)
[2021-04-16] MEDS: NEPHROCAPS PO SCH (09:08)
[2021-04-16] MEDS: METOPROLOL SUCC 50MG EXT REL TAB PO SCH ×2 (09:08→20:45)
[2021-04-16] MEDS: FLUTICASONE FUROATE 100MCG 14 PUFFS/INHALER INH SCH (09:08)
[2021-04-16] MEDS: INSULIN GLARGINE SOLOSTAR 100 UNITS/ML 3 ML PEN SC SCH (09:08)
[2021-04-16] MEDS: guaiFENesin 600 MG TABCR PO SCH ×2 (09:08→20:50)
[2021-04-16] MEDS: POLYETHYLENE (MIRALAX) 17 GM PACK PO SCH (09:08)
[2021-04-16] MEDS: UMECLIDINIUM/VILANTEROL 62.5/25MCG 7 PUFFS/INHALER INH SCH (09:09)
--- NOTE | 2021-04-16 11:59 | Nephrology Progress Note ---
Date of Service April 16, 2021 Assessment & Plan (1) ESRD (end stage renal disease) on dialysis: Plan: ESRD attributed to DKD and history of ATN. On HD TTS. Orders for IUF today entered into EMR and reviewed with HD nurse. Plan for 3 hrs with UF 2 L. TDC functioning well. I discussed the plan of care with Dr. Lagos this AM. Zahida has tolerated aggressive UF reasonably well. 3 L daily since 04/13. She is oliguric. Diuretics to be discontinued. Unfortunately given ESRD and medical comorbidities prognosis is poor. Agree with palliative care consultation. (2) Pleural effusion: Plan: CXR and CT abdomen and pelvis reviewed. Parapneumonic component. Pulmonology consultation reviewed. (3) Chronic anemia: Plan: Stable. Epogen [id number] units provided with HD last week. Admission and Anticipated Discharge Date Admission Date: April 06, 2021 Subjective No acute events overnight. Zahida was seen and evaluated during hemodialysis this AM. Tolerating treatment well. Qb at goal. BP acceptable. Review of Systems Review of Systems: All systems reviewed & are unremarkable except as noted in HPI & below Physical Exam Constitutional: well developed and + frail appearing; no acute distress Eyes: no scleral abnormality and no corneal abnormality ENMT: Mouth: no oral mucosal abnormality and oral mucous membranes not dry Neck: normal visual inspection and trachea midline RIJ TDC Respiratory: normal respiratory effort Auscultation: lungs clear to auscultation bilaterally and + diminished lung sounds Cardiovascular: Rate/Rhythm: regular rate Heart Sounds: normal S1 and normal S2 Extremities: + edema Musculoskeletal: Extremities: no cyanosis and no clubbing Skin: normal turgor; no lesions Neurologic: Motor/Sensory: no tremor and no asterixis Psychiatric: Orientation: alert; + not oriented x 3 Results & Data ([facility]) Vital Signs (Past 12 Hours) Vital Signs Temp Pulse Pulse Resp BP BP Pulse Ox 04/16/21 11:42 71 150/90 H 04/16/21 11:20 73 161/100 H 04/16/21 11:00 71 148/94 H 04/16/21 10:40 72 142/93 H 04/16/21 10:20 71 145/91 H 04/16/21 10:00 71 142/100 H 04/16/21 09:40 72 142/90 H 04/16/21 09:20 81 133/81 04/16/21 09:00 68 115/79 04/16/21 08:40 71 125/81 04/16/21 08:39 36.7 C 71 04/16/21 07:05 71 04/16/21 03:26 36.7 C 76 18 113/78 97 Laboratory Results Laboratory Results - last 24 hr 04/15/21 04/15/21 04/16/21 18:29 20:38 05:34 WBC 11.27 H RBC 3.17 L Hgb 9.3 L Hct 30.2 L MCV 95.3 MCH 29.3 MCHC 30.8 L RDW Std Deviation 63.0 H RDW Coeff of Esa 18.3 H Plt Count 300 MPV 10.0 Immature Gran % (Auto) 1.1 Neut % (Auto) 78.0 Lymph % (Auto) 6.9 [place] % (Auto) 10.7 Eos % (Auto) 2.8 Baso % (Auto) 0.5 Neut # (Auto) 8.78 H Lymph # (Auto) 0.78 L [place] # (Auto) 1.21 H Eos # (Auto) 0.32 Baso # (Auto) 0.06 Immature Gran # (Auto) 0.12 H Absolute Nucleated RBC 0.03 H Nucleated RBC % (auto) 0.2 Sodium Potassium Chloride Carbon Dioxide Anion Gap BUN Creatinine Est Cr Clr Drug Dosing Est GFR ( Amer) Est GFR (Non-Af Amer) BUN/Creatinine Ratio Glucose POC Glucose 216 H 272 H Calcium 04/16/21 04/16/21 05:34 07:55 WBC RBC Hgb Hct MCV MCH MCHC RDW Std Deviation RDW Coeff of Esa Plt Count MPV Immature Gran % (Auto) Neut % (Auto) Lymph % (Auto) [place] % (Auto) Eos % (Auto) Baso % (Auto) Neut # (Auto) Lymph # (Auto) [place] # (Auto) Eos # (Auto) Baso # (Auto) Immature Gran # (Auto) Absolute Nucleated RBC Nucleated RBC % (auto) Sodium 126 L Potassium 4.8 Chloride 93 L Carbon Dioxide 25 Anion Gap 8.0 BUN 48 H Creatinine 3.39 H D Est Cr Clr Drug Dosing 20.8 Est GFR ( Amer) 16.4 Est GFR (Non-Af Amer) 14.2 BUN/Creatinine Ratio 14.1 Glucose 270 H POC Glucose 264 H Calcium 9.2 Diagnostic Findings XR chest 1V portable CLINICAL HISTORY: pleural effusion COMPARISON STUDY: April 11, 2021 FINDINGS: No pneumothorax. Redemonstration of the moderate to large right pleural effusion which is unchanged since prior study performed yesterday. Minimal pleural effusion on the left is again seen. Bilateral diffuse reticular and airspace opacities are again seen bilaterally, unchanged on the right and slightly worsened on the left. Cardiomediastinal silhouette is stable and partially obscured by surrounding opacities. Pulmonary vasculature is indistinct.. Osseous structures: unremarkable Stable position of right-sided HD catheter. IMPRESSION: 1. Stable moderate to large right pleural effusion. Unchanged minimal left pleural effusion. 2. Mild interval worsening of bilateral opacities which might represent pulmo nary edema and/or atelectasis/infiltrates. PG Care Time/CCT Total # of Minutes Spent Total Time Spent with Patient: Total time spent is greater than 50% in coordination of care (as documented) at patient's floor/unit and/or counseling patient: Coding Level of Care Code 07035 Subseq Hosp Care Lvl 3 Diagnoses ESRD (end stage renal disease) on dialysis N18.6; Z99.2 Pleural effusion J90 Chronic anemia D64.9
[2021-04-16] MEDS: oxyCODONE HCL IR 5 MG TAB (IMMEDIATE RELEASE) PO PRN (12:39)
--- NOTE | 2021-04-16 17:13 | Hospitalist Progress Note ---
Date of Service April 16, 2021 Assessment & Plan (1) Pleural effusion: Plan: Zahida Garay is a 60 year old female with PMHx ESRD on dialysis, diastolic CHF, COPD, DM2, who presents with chief complaint of worsening shortness of breath. Acute on chronic HFpEF with bilateral pleural effusions - In acute exacerbation, BNP >35k - Minimal urine output - fluid restrict 1800 mL daily - Patient continues to have significant SOB -Continues to receive daily ultrafiltration per nephrology recs, but ultimately has not lost much weight despite over 20L removed overall - seems like her nutritional status/decreased albumin is causing third spacing -Pulmonology has performed thoracentesis--so far, due to patient preference and likely recurrence of effusion, no plans to repeat Malnutrition - Albumin low in the low 2's - Likely major contributor to her continued fluid buildup despite daily dialysis with total ~20L removed - Appreciate dietary recomenndations for supplementation/nutrition recs Suspect UTI -CT ab/pelvis with findings suggestive of cystitis, UA with epithelial cells concerning for contamination. -Difficult to correlate symptoms due to patients awareness and lack of urination -Will treat with CTX 1g daily x0e--pmilb is day 2 Pneumonia - MRSA nares positive - On contact precautions - Treated with vancomycin x 5 days -- now finished treatment ESRD on Dialysis -Daily dialysis as above -Nephrology following -Continue Phoslo -Nephrocaps QD Paroxysmal AFib -Restarted Eliquis yesterday -Continue Toprol 50mg BID Hypertension -Holding hydralazine -Continuing Metoprolol -Restarted ASA 04/16 COPD -On Mucinex, Anoro Ellipta, Arnuity Ellipta Bipolar disorder -Home ziprasidone on hold -Continue home Trazodone FENGI: Carb consistent, Dialysis, fluid restriction to 1800mL, easy to chew Dispo: Med/Surg with Tele DVT ppx: On Eliquis CODE: FULL (2) Diastolic CHF, acute on chronic: (3) ESRD (end stage renal disease) on dialysis: (4) Pneumonia: (5) SOB (shortness of breath): (6) Polypharmacy: (7) Elevated WBC count: Admission and Anticipated Discharge Date Admission Date: April 06, 2021 Supervising Physician Co-Signing Physician Notes Patient seen and examined with PGY-1 Dr. Robert. Agree with history, exam findings, assessment and plan of care as outlined. In brief, Zahida is a 60 year old female with history significant for ESRD (HD T//Sun), HTN, pAF, and bipolar disorder admitted with parapneumonic effusion/respiratory failure. Seen today after dialysis. She reports that is having trouble breathing. When her pulse ox was checked she was satting 100% on supplemental O2. Denies chest pain. She tells us I want to live. She would only have another thoracentesis if she really needed it due to worsening breathing issues. Her ultimate goal is to be able to move to [place] to live with her daughter. Her daughter is in the process of getting her set up with dialysis in [place]. Vital signs and nursing notes reviewed. Ill appearing, but non-toxic. Heart with regular rate and rhythm. Decreased breath sounds in the bilateral bases. +1-2 pitting edema to the hip. labs and imaging reviewed. 1. parapneumonic effusion. Has received HD x 5 days in a row--taken off nearly 20 liters without significant improvement in fluid balancethird spaces right away and now seems to be a bit intravascularly dry as evidenced by her rising BUN. Poor nutritional status also likely contributing. Continue supplements per nutrition. Appreciate palliative recs. Discussed this morning with Dr. Gross. At this time, no plans for dialysis tomorrow. We will see how she does as we attempt to transition her back to her T/ dialysis schedule. 2. leukocytosis. New. No signs or symptoms of infection at this time. Possibly due to hemoconcentration. Will trendif continues to be elevated can consider additional infectious work up. 3. pneumonia. Completed course of vancomycin for this. 4. Cystitis. Seen on CT. Difficult to know whether she is having symptoms as she is anuric. Will cover with a 3 days course of ceftriaxone. 5. acute on chronic HFpEF. fluid restricted to 1800mL. 6. pAF. Continue metoprolol. Restarted Eliquis and ASA as she is not inclined to pursue another thoracentesis. 7. ESRD on HD (T//Sun). Continue dialysis per nephrology. Appreciate recommendations. 8. HTN. Blood pressures on the lower end. Holding home hydralazine. Continue metoprolol. Dispo: pending clinical improvement. Subjective No acute events overnight. Resting comfortably this AM. Complained of abdominal pain and trouble sleeping. Denied SOB but O2 sat check 100% on 2LNC Review of Systems Constitutional: as per Subjective / HPI Physical Exam Constitutional: WD/WN, vitals as above Respiratory: Auscultation: + crackles Cardiovascular: Heart Sounds: + murmur (systolic, best heard at LUSB) Results & Data Results & Data ([facility]) Vital Signs (Past 12 Hours) Vital Signs Temp Pulse Pulse Pulse Resp BP BP 04/16/21 16:59 74 04/16/21 15:00 37.0 C 76 18 132/83 04/16/21 12:08 36.5 C 72 22 147/93 H 04/16/21 11:56 36.7 C 73 157/90 H 04/16/21 11:42 71 150/90 H 04/16/21 11:20 73 161/100 H 04/16/21 11:00 71 148/94 H 04/16/21 10:40 72 142/93 H 04/16/21 10:20 71 145/91 H 04/16/21 10:00 71 142/100 H 04/16/21 09:40 72 142/90 H 04/16/21 09:20 81 133/81 04/16/21 09:00 68 115/79 04/16/21 08:40 71 125/81 04/16/21 08:39 36.7 C 71 04/16/21 07:05 71 Pulse Ox 04/16/21 16:59 04/16/21 15:00 100 04/16/21 12:08 100 04/16/21 11:56 04/16/21 11:42 04/16/21 11:20 04/16/21 11:00 04/16/21 10:40 04/16/21 10:20 04/16/21 10:00 04/16/21 09:40 04/16/21 09:20 04/16/21 09:00 04/16/21 08:40 04/16/21 08:39 04/16/21 07:05 Resident Activity Tracking Resident Involvement: Resident Care Provided Care Provided: Adult [facility] Medicine
[2021-04-16] MEDS: cefTRIAXone SODIUM 2,000 MG in DEXTROSE 5% 50 ML IV SCH (17:26)
[2021-04-16] MEDS: LIDOCAINE 5% 1 PATCH TD SCH (20:47)
[2021-04-16] MEDS: traZODone HCL 50 MG TAB PO SCH (20:47)
[2021-04-16] MEDS: clonazePAM 0.5 MG TAB PO PRN (21:49)
[2021-04-17] MEDS: oxyCODONE HCL IR 5 MG TAB (IMMEDIATE RELEASE) PO PRN ×3 (01:17→18:14)
[2021-04-17 06:15] LABS: Hematocrit (blood only) 28.1 % (37-47); Hemoglobin 8.7 g/dL (12.0-16.0); Mean Corpuscular Hemoglobin 29.2 pg (25-34); Mean Corpuscular Volume 94.3 fL (80-100); Mean Platelet Volume 9.7 fL (7.4-10.4); Platelet Count 294 K/uL (130-400); RDW Coefficient of Variation 18.1 % (11.5-14.5); RDW Standard Deviation 61.2 fL (36.4-46.3); Red Blood Count 2.98 M/uL (4.2-5.4); White Blood Count 10.37 K/uL (4.8-10.8)
[2021-04-17 06:47] LABS: BUN Creatinine Ratio 18.3 (10-20); Est GFR (African American) 14.1 ml/min; Est GFR (Non-African American) 12.2 ml/min; Potassium 4.9 mmol/L (3.5-5.1)
[2021-04-17] MEDS: FLUTICASONE FUROATE 100MCG 14 PUFFS/INHALER INH SCH (08:39)
[2021-04-17] MEDS: INSULIN GLARGINE SOLOSTAR 100 UNITS/ML 3 ML PEN SC SCH (08:40)
[2021-04-17] MEDS: UMECLIDINIUM/VILANTEROL 62.5/25MCG 7 PUFFS/INHALER INH SCH (08:40)
[2021-04-17] MEDS: INSULIN ASPART 100 UNITS/ML 3 ML PEN SC SCH ×4 (08:40→21:18)
[2021-04-17] MEDS: DICLOFENAC SOD 1% GEL 100 GM TUBE EXT SCH ×4 (08:42→21:29)
[2021-04-17] MEDS: SIMETHICONE 80 MG CHEW PO PRN (08:43)
[2021-04-17] MEDS: POLYETHYLENE (MIRALAX) 17 GM PACK PO SCH (08:43)
[2021-04-17] MEDS: CALCIUM ACETATE 667 MG CAP/TAB PO SCH ×3 (08:43→18:10)
[2021-04-17] MEDS: NEPHROCAPS PO SCH (08:43)
[2021-04-17] MEDS: LACTULOSE SYRUP 20 GM/30 ML UDC PO SCH (08:44)
[2021-04-17] MEDS: PANTOprazole 40 MG TAB PO SCH (08:44)
[2021-04-17] MEDS: APIXABAN 2.5 MG TAB PO SCH ×2 (08:45→21:27)
[2021-04-17] MEDS: METOPROLOL SUCC 50MG EXT REL TAB PO SCH ×2 (08:45→21:30)
[2021-04-17] MEDS: ACETAMINOPHEN 325 MG TAB PO SCH ×4 (08:45→21:28)
[2021-04-17] MEDS: ASPIRIN 81 MG ECTAB PO SCH (08:46)
[2021-04-17] MEDS: guaiFENesin 600 MG TABCR PO SCH ×2 (08:47→21:31)
--- NOTE | 2021-04-17 10:39 | Nephrology Progress Note ---
Date of Service April 17, 2021 Assessment & Plan (1) ESRD (end stage renal disease) on dialysis: Plan: ESRD attributed to DKD and history of ATN. On HD TTS. Volume status acceptable. Hyponatremia progressive in setting of aggressive UF and poor oral solute inta ke. Dietary fluid restriction reduced to 1.5 L/d. Will hold HD today and evaluate tomorrow AM. Anticipate next HD tomorrow or Sunday. TDC functioning well. Unfortunately given ESRD and medical comorbidities prognosis is poor. Agree with palliative care consultation. (2) Pleural effusion: Plan: CXR and CT abdomen and pelvis reviewed. Parapneumonic component. (3) Chronic anemia: Plan: Stable. Epogen 86627 units provided with HD last week. Admission and Anticipated Discharge Date Admission Date: April 06, 2021 Subjective No acute events overnight. Resting comfortably this AM. Tolerated IUF yesterday without complications. UF 2 L. Review of Systems Review of Systems: All systems reviewed & are unremarkable except as noted in HPI & below Constitutional: + fatigue Respiratory: + dyspnea on exertion; no chest congestion and no pain on inspiration Physical Exam Constitutional: well developed and + frail appearing; no acute distress Eyes: no scleral abnormality and no corneal abnormality ENMT: Mouth: no oral mucosal abnormality and oral mucous membranes not dry Neck: normal visual inspection and trachea midline Respiratory: normal respiratory effort Auscultation: lungs clear to auscultation bilaterally and + diminished lung sounds Cardiovascular: Rate/Rhythm: regular rate Heart Sounds: normal S1 and normal S2 Extremities: + edema Musculoskeletal: Extremities: no cyanosis and no clubbing Skin: normal turgor; no lesions Neurologic: Motor/Sensory: no tremor and no asterixis Psychiatric: Orientation: alert; + not oriented x 3 Results & Data ([facility]) Vital Signs (Past 12 Hours) Vital Signs Temp Pulse Pulse Resp BP Pulse Ox 04/17/21 07:50 36.4 C L 77 16 132/85 100 04/17/21 07:25 77 04/17/21 03:15 36.6 C 82 18 151/86 H 100 04/16/21 23:32 36.4 C L 78 16 122/77 96 Laboratory Results Laboratory Results - last 24 hr 04/16/21 04/16/21 04/16/21 12:04 16:44 20:30 WBC RBC Hgb Hct MCV MCH MCHC RDW Std Deviation RDW Coeff of Esa Plt Count MPV Sodium Potassium Chloride Carbon Dioxide Anion Gap BUN Creatinine Est Cr Clr Drug Dosing Est GFR ( Amer) Est GFR (Non-Af Amer) BUN/Creatinine Ratio Glucose POC Glucose 288 H 225 H 234 H Calcium 04/17/21 04/17/21 04/17/21 05:39 05:39 07:49 WBC 10.37 RBC 2.98 L Hgb 8.7 L Hct 28.1 L MCV 94.3 MCH 29.2 MCHC 31.0 L RDW Std Deviation 61.2 H RDW Coeff of Esa 18.1 H Plt Count 294 MPV 9.7 Sodium 123 L Potassium 4.9 Chloride 90 L Carbon Dioxide 24 Anion Gap 9.0 BUN 70 H Creatinine 3.85 H D Est Cr Clr Drug Dosing 18.0 Est GFR ( Amer) 14.1 Est GFR (Non-Af Amer) 12.2 BUN/Creatinine Ratio 18.3 Glucose 237 H POC Glucose 275 H Calcium 9.0 PG Care Time/CCT Total # of Minutes Spent Total Time Spent with Patient: Total time spent is greater than 50% in coordination of care (as documented) at patient's floor/unit and/or counseling patient: Coding Level of Care Code 79817 Subseq Hosp Care Lvl 3 Diagnoses ESRD (end stage renal disease) on dialysis N18.6; Z99.2 Pleural effusion J90 Chronic anemia D64.9
--- NOTE | 2021-04-17 15:19 | Hospitalist Progress Note ---
Date of Service April 17, 2021 Assessment & Plan (1) Pleural effusion: Plan: Zahida Garay is a 60 year old female with PMHx ESRD on dialysis, diastolic CHF, COPD, DM2, who presents with chief complaint of worsening shortness of breath. Acute on chronic HFpEF with bilateral pleural effusions - In acute exacerbation, BNP >35k - Minimal urine output - fluid restrict 1800 mL daily - Patient continues to have significant SOB -Continues to receive daily ultrafiltration per nephrology recs, but ultimately has not lost much weight despite over 20L removed overall - seems like her nutritional status/decreased albumin is causing fluid to repeatedly extravasate -Pulmonology has performed thoracentesis--so far, due to patient preference and likely recurrence of effusion, no plans to repeat - Restarted Eliquis Malnutrition - Albumin low in the low 2's - Likely major contributor to her continued fluid buildup despite daily dialysis with total ~20L removed Suspect UTI -CT ab/pelvis with findings suggestive of cystitis, UA with epithelial cells concerning for contamination. -Difficult to correlate symptoms due to patients awareness and lack of urination -Will treat with CTX 1g daily l2d--isdoq is day 3 Pneumonia - MRSA nares positive - On contact precautions - Treated with vancomycin x 5 days -- finished treatment ESRD on Dialysis -Daily dialysis as above -Nephrology following -Continue Phoslo -Nephrocaps QD Paroxysmal AFib -Restarted Eliquis -Toprol 50mg BID Hypertension -Holding hydralazine -Continuing Metoprolol -Restarted ASA 04/16 COPD -On Mucinex, Anoro Ellipta, Arnuity Ellipta Bipolar disorder -Home ziprasidone on hold -Continue home Trazodone FENGI: Carb consistent, Dialysis, fluid restriction to 1800mL, easy to chew Dispo: Med/Surg with Tele DVT ppx: On Eliquis CODE: FULL (2) Diastolic CHF, acute on chronic: (3) ESRD (end stage renal disease) on dialysis: (4) Pneumonia: (5) SOB (shortness of breath): (6) Polypharmacy: (7) Elevated WBC count: Admission and Anticipated Discharge Date Admission Date: April 06, 2021 Supervising Physician Co-Signing Physician Notes Patient seen and examined independently of PGY-1 Dr. Robert. Agree with history, exam findings, assessment and plan of care as outlined. In brief, Zahida is a 60 year old female with history significant for ESRD (HD //Sun), HTN, pAF, and bipolar disorder admitted with parapneumonic effusion/respiratory failure. No complaints today. Feels that she still needs the oxygen even though she is satting at 100%. She is not open to trying to wean the oxygen. Vital signs and nursing notes reviewed. Ill appearing, but non-toxic. Heart with regular rate and rhythm. Decreased breath sounds in the bilateral bases. +2 pitting edema to the hip. labs and imaging reviewed. 1. parapneumonic effusion. Has received HD x 5 days in a row--taken off nearly 20 liters without significant improvement in fluid balancethird spaces right away and now seems to be a bit intravascularly dry as evidenced by her rising BUN. Poor nutritional status also likely contributing. Continue supplements per nutrition. Appreciate palliative recs. No dialysis on Sunday, will defer to nephrology regarding dialysis tomorrow. We will see how she does as we attempt to transition her back to her T/ dialysis schedule. 2. leukocytosis. Improving. No signs or symptoms of infection at this time. Possibly due to hemoconcentration. Will trendif continues to be elevated can consider additional infectious work up. 3. pneumonia. Completed course of vancomycin for this. 4. Cystitis. Seen on CT. Difficult to know whether she is having symptoms as she is anuric. Completed a 3 day course of ceftriaxone. 5. acute on chronic HFpEF. fluid restricted to 1800mL. 6. pAF. Continue metoprolol. Restarted Eliquis and ASA as she is not inclined to pursue another thoracentesis. 7. ESRD on HD (//Sun). Continue dialysis per nephrology. Appreciate recommendations. 8. HTN. Blood pressures on the lower end. Holding home hydralazine. Continue metoprolol. Dispo: pending clinical improvement. Subjective No acute events overnight. Zahida is resting comfortably in bed this AM. She awoke instantly when addressed by name. She reports abdominal and chest pain. Review of Systems Constitutional: as per Subjective / HPI Physical Exam Constitutional: comfortable Respiratory: Auscultation: + crackles Cardiovascular: Heart Sounds: + murmur Extremities: + edema (2+ to the hip on the left) Gastrointestinal (Abdomen): Inspection/Auscultation: + abdomen distended Psychiatric: Orientation: oriented to person, oriented to place and cooperative Results & Data Results & Data ([facility]) Vital Signs (Past 12 Hours) Vital Signs Temp Pulse Pulse Resp BP Pulse Ox 04/17/21 14:57 75 04/17/21 11:48 36.4 C L 77 18 134/82 100 04/17/21 07:50 36.4 C L 77 16 132/85 100 04/17/21 07:25 77 Resident Activity Tracking Resident Involvement: Resident Care Provided Care Provided: Adult Hospital Medicine
[2021-04-17] MEDS: cefTRIAXone SODIUM 2,000 MG in DEXTROSE 5% 50 ML IV SCH (18:13)
[2021-04-17] MEDS: LIDOCAINE 5% 1 PATCH TD SCH (21:30)
[2021-04-17] MEDS: traZODone HCL 50 MG TAB PO SCH (21:31)
[2021-04-17] MEDS: clonazePAM 0.5 MG TAB PO PRN (21:34)
[2021-04-18] MEDS: oxyCODONE HCL IR 5 MG TAB (IMMEDIATE RELEASE) PO PRN ×5 (03:06→21:26)
[2021-04-18 07:57] LABS: Hematocrit (blood only) 29.2 % (37-47); Hemoglobin 9.2 g/dL (12.0-16.0); Mean Corpuscular Hemoglobin 29.3 pg (25-34); Mean Corpuscular Hgb Conc 31.5 g/dL (32-36); Mean Platelet Volume 9.6 fL (7.4-10.4); Platelet Count 362 K/uL (130-400); RDW Coefficient of Variation 18.3 % (11.5-14.5); RDW Standard Deviation 60.8 fL (36.4-46.3); Red Blood Count 3.14 M/uL (4.2-5.4); White Blood Count 12.95 K/uL (4.8-10.8)
[2021-04-18] MEDS: ACETAMINOPHEN 325 MG TAB PO SCH ×4 (08:35→20:10)
[2021-04-18] MEDS: CALCIUM ACETATE 667 MG CAP/TAB PO SCH ×3 (08:35→17:29)
[2021-04-18 08:36] LABS: BUN Creatinine Ratio 21.2 (10-20); Calcium 9.5 mg/dl (8.5-10.1); Creatinine Clr Calc Pharmacy 16.8 ml/min; Est GFR (African American) 12.9 ml/min; Est GFR (Non-African American) 11.1 ml/min; Potassium 5.5 mmol/L (3.5-5.1)
[2021-04-18] MEDS: DICLOFENAC SOD 1% GEL 100 GM TUBE EXT SCH ×5 (08:36→20:17)
[2021-04-18] MEDS: ASPIRIN 81 MG ECTAB PO SCH (08:36)
[2021-04-18] MEDS: APIXABAN 2.5 MG TAB PO SCH ×2 (08:36→20:16)
[2021-04-18] MEDS: guaiFENesin 600 MG TABCR PO SCH ×2 (08:37→20:16)
[2021-04-18] MEDS: FLUTICASONE FUROATE 100MCG 14 PUFFS/INHALER INH SCH (08:37)
[2021-04-18] MEDS: LACTULOSE SYRUP 20 GM/30 ML UDC PO SCH (08:37)
[2021-04-18] MEDS: POLYETHYLENE (MIRALAX) 17 GM PACK PO SCH (08:41)
[2021-04-18] MEDS: NEPHROCAPS PO SCH (08:41)
[2021-04-18] MEDS: PANTOprazole 40 MG TAB PO SCH (08:41)
[2021-04-18] MEDS: UMECLIDINIUM/VILANTEROL 62.5/25MCG 7 PUFFS/INHALER INH SCH (08:42)
[2021-04-18] MEDS: INSULIN GLARGINE SOLOSTAR 100 UNITS/ML 3 ML PEN SC SCH (08:46)
[2021-04-18] MEDS: INSULIN ASPART 100 UNITS/ML 3 ML PEN SC SCH ×4 (08:46→21:29)
[2021-04-18] MEDS: ONDANSETRON INJ 2 MG/ML 2 ML VIAL IV PRN ×2 (09:08→15:34)
[2021-04-18] MEDS: METOPROLOL SUCC 50MG EXT REL TAB PO SCH ×2 (12:31→20:15)
--- NOTE | 2021-04-18 16:51 | Nephrology Progress Note ---
Date of Service April 18, 2021 Assessment & Plan (1) ESRD (end stage renal disease) on dialysis: Plan: ESRD attributed to DKD and history of ATN. On HD TTS. Volume status acceptable. Plan for HD tomorrow per TTS schedule. Noted progressive hyponatremia and hype rkalemia. Free water restriction and low K+ diet reviewed. TDC functioning well. Unfortunately given ESRD and medical comorbidities prognosis is poor. Agree with palliative care consultation. (2) Pleural effusion: Plan: CXR and CT abdomen and pelvis reviewed. Parapneumonic component. (3) Chronic anemia: Plan: Stable. Epogen 30801 units provided with HD last week. Admission and Anticipated Discharge Date Admission Date: April 06, 2021 Subjective No acute events overnight. Zahida was seen and evaluated this AM. She feels well . No acute complaints or concerns at thsi time. Review of Systems Constitutional: no weight loss, no weight gain and no problem reported Eyes: no problem reported Ear, Nose, Mouth, Throat: no problem reported Respiratory: no problem reported Cardiovascular: no problem reported Gastrointestinal: no problem reported Musculoskeletal: no problem reported Integumentary: no problem reported Neurologic: no problem reported Psychiatric: no problem reported Endocrine: no problem reported Hematologic / Lymphatic: no problem reported Physical Exam Constitutional: well developed and + frail appearing; no acute distress Eyes: no scleral abnormality and no corneal abnormality ENMT: Mouth: no oral mucosal abnormality and oral mucous membranes not dry Neck: normal visual inspection and trachea midline Respiratory: normal respiratory effort Auscultation: lungs clear to auscultation bilaterally and + diminished lung sounds Cardiovascular: Rate/Rhythm: regular rate Heart Sounds: normal S1 and normal S2 Extremities: + edema Musculoskeletal: Extremities: no cyanosis and no clubbing Skin: normal turgor; no lesions Neurologic: Motor/Sensory: no tremor and no asterixis Psychiatric: Orientation: alert; + not oriented x 3 Results & Data ([facility]) Vital Signs (Past 12 Hours) Vital Signs Temp Pulse Pulse Resp BP Pulse Ox 04/18/21 15:41 36.3 C L 77 16 142/81 H 92 04/18/21 15:00 75 04/18/21 12:05 36.8 C 71 16 137/86 100 04/18/21 07:44 36.0 C L 74 16 115/77 91 04/18/21 06:20 73 Laboratory Results Laboratory Results - last 24 hr 04/17/21 04/18/21 04/18/21 20:08 06:56 06:56 WBC 12.95 H RBC 3.14 L Hgb 9.2 L Hct 29.2 L MCV 93.0 MCH 29.3 MCHC 31.5 L RDW Std Deviation 60.8 H RDW Coeff of Esa 18.3 H Plt Count 362 MPV 9.6 Sodium 120 L Potassium 5.5 H Chloride 87 L Carbon Dioxide 21 Anion Gap 12.0 H BUN 88 H Creatinine 4.14 H Est Cr Clr Drug Dosing 16.8 Est GFR ( Amer) 12.9 Est GFR (Non-Af Amer) 11.1 BUN/Creatinine Ratio 21.2 H Glucose 189 H POC Glucose 178 H Calcium 9.5 04/18/21 04/18/21 07:14 12:02 WBC RBC Hgb Hct MCV MCH MCHC RDW Std Deviation RDW Coeff of Esa Plt Count MPV Sodium Potassium Chloride Carbon Dioxide Anion Gap BUN Creatinine Est Cr Clr Drug Dosing Est GFR ( Amer) Est GFR (Non-Af Amer) BUN/Creatinine Ratio Glucose POC Glucose 206 H 203 H Calcium PG Care Time/CCT Total # of Minutes Spent Total Time Spent with Patient: Total time spent is greater than 50% in coordination of care (as documented) at patient's floor/unit and/or counseling patient: Coding Level of Care Code 51357 Subseq Hosp Care Lvl 3 Diagnoses ESRD (end stage renal disease) on dialysis N18.6; Z99.2 Pleural effusion J90 Chronic anemia D64.9
[2021-04-18] MEDS: cefTRIAXone SODIUM 2,000 MG in DEXTROSE 5% 50 ML IV SCH (17:29)
[2021-04-18] MEDS ORDERED: OXYMETAZOLINE 0.05% 30 ML BTL ONE (17:39)
--- NOTE | 2021-04-18 18:15 | Hospitalist Progress Note ---
Date of Service April 18, 2021 Assessment & Plan (1) Pleural effusion: Plan: Zahida Garay is a 60 year old female with PMHx ESRD on dialysis, diastolic CHF, COPD, DM2, who presents with chief complaint of worsening shortness of breath. Acute on chronic HFpEF with bilateral pleural effusions - In acute exacerbation, BNP >35k - Minimal urine output - fluid restrict 1800 mL daily - Patient continues to have significant SOB - Followed by nephrology; no longer on daily ultrafiltration but ultimately has not lost much weight despite over 20L removed overall - appears that her nutritional status/decreased albumin is causing fluid to repeatedly extravasate -Pulmonology has performed thoracentesis once--so far, due to patient preference and likely recurrence of effusion, no plans to repeat - Restarted Eliquis -Spoke with daughter, Elsa Jacome ([phone]), who would like to bring her to a facility in [place] * provided contact information of living facility near her home in [place] ([facility] in [place], [place]) and info on dialysis facility near home. * discussed potential plan to discharge her after dialysis, with the daughter transferring her to facility in [place] * passed on information to [facility] in case management to determine eligibility and availability * will follow for update Malnutrition - Albumin low in the low 2's - Likely major contributor to her continued fluid buildup despite daily dialysis with total ~20L removed Suspect UTI -CT ab/pelvis with findings suggestive of cystitis, UA with epithelial cells concerning for contamination. -Difficult to correlate symptoms due to patients awareness and lack of urination -Will treat with CTX 1g daily p5j--stilohqp treatment -will consider resolved unless suspicion arises again Pneumonia - MRSA nares positive - On contact precautions - Treated with vancomycin x 5 days -- finished treatment ESRD on Dialysis -Nephrology following -Continue Phoslo -Nephrocaps QD Paroxysmal AFib -Restarted Eliquis -Toprol 50mg BID Hypertension -Holding hydralazine -Continuing Metoprolol -Restarted ASA 04/16 COPD -On Mucinex, Anoro Ellipta, Arnuity Ellipta Bipolar disorder -Home ziprasidone on hold -Continue home Trazodone FENGI: Carb consistent, Dialysis, fluid restriction to 1500mL, easy to chew Dispo: Med/Surg with Tele DVT ppx: On Eliquis CODE: FULL (2) Diastolic CHF, acute on chronic: (3) ESRD (end stage renal disease) on dialysis: (4) Pneumonia: (5) SOB (shortness of breath): (6) Polypharmacy: (7) Elevated WBC count: Admission and Anticipated Discharge Date Admission Date: April 06, 2021 Supervising Physician Co-Signing Physician Notes I personally examined the patient and verified all senior points of history and exam, discussed case, and agree with decision making with Dr Robert Feeling okay. Would like to be able to go to SNF closer to her daughterapparently there is being worked on. No other new complaints. Vitals noted, in general she is awake and alert resting comfortably no distress. HEENT normocephalic atraumatic mucous membranes moist. Lungs are clear upper lung shepherd diminished bibasilarmuch more clear than whenever I last listen to her a week ago. No accessory muscle use good effort. She does show lower extremity edema 1. parapneumonic effusion. Did not really clinically improved with extra dialysis. Could consider thoracentesis with pleurodesis, but respiratory status relatively stable, and it seems patient is fairly reticent for procedures if not truly dire situation. 2. leukocytosis. Improving. No signs or symptoms of ongoing acute infection at this time. 3. pneumonia. Completed course of antibiotics 4. Cystitis. Seen on CT. Difficult to know whether she is having symptoms as she is anuric. Completed a 3 day course of ceftriaxone. 5. acute on chronic HFpEF. Intravascularly appears to be somewhere between euvolemic and slightly dry 6. pAF. Continue metoprolol. Restarted Eliquis and ASA as she is not inclined to pursue another thoracentesis. 7. ESRD on HD (//Sun). Continue dialysis per nephrology. Appreciate recommendations. 8. HTN. Follow on current regimen Dispo: For SNFit appears the plan will be to try to get her closer to her family in [place]. Case management working on this. Subjective No acute events overnight. Zahida was seen and evaluated this AM. She feels well. She has no complaints. Review of Systems Constitutional: as per Subjective / HPI Physical Exam Constitutional: WD/WN, vitals as above + ill appearing, + physical limitations, comfortable and + edematous Eyes: PERRL, conjunctivae normal, anicteric sclerae Respiratory: normal respiratory effort and able to speak in complete sentences Auscultation: + diminished lung sounds (at the lung base bilaterally) and + crackles Cardiovascular: Heart Sounds: + murmur (best heard at LUSB) Extremities: + edema (2+ to the hip on the left) Gastrointestinal (Abdomen): Inspection/Auscultation: normal bowel sounds Musculoskeletal: Extremities: + 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
--- NOTE | 2021-04-18 18:59 | Billing Data ---
Date of Service April 18, 2021 Coding Level of Care Code 93794 Subseq Hosp Care Lvl 2
[2021-04-18] MEDS: traZODone HCL 50 MG TAB PO SCH (20:15)
[2021-04-18] MEDS: LIDOCAINE 5% 1 PATCH TD SCH (20:17)
[2021-04-18] MEDS: clonazePAM 0.5 MG TAB PO PRN (21:26)
[2021-04-19] MEDS: oxyCODONE HCL IR 5 MG TAB (IMMEDIATE RELEASE) PO PRN ×3 (04:57→21:03)
[2021-04-19 07:29] LABS: Hemoglobin 9.5 g/dL (12.0-16.0); Mean Corpuscular Hemoglobin 29.2 pg (25-34); Mean Corpuscular Hgb Conc 31.7 g/dL (32-36); Mean Corpuscular Volume 92.3 fL (80-100); Mean Platelet Volume 9.8 fL (7.4-10.4); Platelet Count 427 K/uL (130-400); RDW Coefficient of Variation 18.4 % (11.5-14.5); RDW Standard Deviation 61.4 fL (36.4-46.3); Red Blood Count 3.25 M/uL (4.2-5.4); White Blood Count 12.16 K/uL (4.8-10.8)
[2021-04-19] MEDS: UMECLIDINIUM/VILANTEROL 62.5/25MCG 7 PUFFS/INHALER INH SCH (07:31)
[2021-04-19] MEDS: FLUTICASONE FUROATE 100MCG 14 PUFFS/INHALER INH SCH (07:31)
[2021-04-19] MEDS: LACTULOSE SYRUP 20 GM/30 ML UDC PO SCH (07:32)
[2021-04-19] MEDS: POLYETHYLENE (MIRALAX) 17 GM PACK PO SCH (07:32)
[2021-04-19] MEDS: DICLOFENAC SOD 1% GEL 100 GM TUBE EXT SCH ×4 (07:32→21:00)
[2021-04-19] MEDS: ASPIRIN 81 MG ECTAB PO SCH (07:35)
[2021-04-19] MEDS: APIXABAN 2.5 MG TAB PO SCH ×2 (07:35→21:03)
[2021-04-19] MEDS: NEPHROCAPS PO SCH (07:49)
[2021-04-19] MEDS: ACETAMINOPHEN 325 MG TAB PO SCH ×5 (07:49→21:00)
[2021-04-19] MEDS: PANTOprazole 40 MG TAB PO SCH (07:49)
[2021-04-19] MEDS: INSULIN GLARGINE SOLOSTAR 100 UNITS/ML 3 ML PEN SC SCH (07:50)
[2021-04-19] MEDS: INSULIN ASPART 100 UNITS/ML 3 ML PEN SC SCH ×4 (07:50→21:04)
[2021-04-19] MEDS: CALCIUM ACETATE 667 MG CAP/TAB PO SCH ×4 (07:51→17:17)
[2021-04-19 08:20] LABS: INR 1.3 (0.9-1.1); Prothrombin Time 12.6 Seconds (9.0-12.0)
[2021-04-19 08:20] LABS: BUN Creatinine Ratio 20.5 (10-20); Calcium 9.4 mg/dl (8.5-10.1); Creatinine Clr Calc Pharmacy 14.8 ml/min; Est GFR (Non-African American) 9.5 ml/min; Potassium 6.2 mmol/L (3.5-5.1)
--- NOTE | 2021-04-19 09:52 | Nephrology Progress Note ---
Date of Service April 19, 2021 Assessment & Plan (1) ESRD (end stage renal disease) on dialysis: Plan: ESRD attributed to DKD and history of ATN. On HD TTS. Orders for HD today entered into EMR and reviewed with HD nurse. Free water restriction and low K+ diet reviewed. AM cortisol not consistent with adrenal insufficiency. TDC functioning well. Unfortunately given ESRD and medical comorbidities prognosis is poor. (2) Pleural effusion: Plan: CXR and CT abdomen and pelvis reviewed. Parapneumonic component. (3) Chronic anemia: Plan: Stable. Epogen 46220 units provided with HD last week. Additional 32062 units today. Admission and Anticipated Discharge Date Admission Date: April 06, 2021 Subjective No acute events overnight. Zahida was seen and evaluated this AM prior to and during hemodialysis. She was tolerating HD well. No fevers or chills. Denies significant shortness of breath. Multiple loose stool reported by nursing. Appetite poor. Denies excessive fluid intake. Review of Systems Review of Systems: All systems reviewed & are unremarkable except as noted in HPI & below Physical Exam Constitutional: well developed and + frail appearing; no acute distress Eyes: no scleral abnormality and no corneal abnormality ENMT: Mouth: no oral mucosal abnormality and oral mucous membranes not dry Neck: normal visual inspection and trachea midline Respiratory: normal respiratory effort Auscultation: lungs clear to auscultation bilaterally and + diminished lung sounds Cardiovascular: Rate/Rhythm: regular rate Heart Sounds: normal S1 and normal S2 Extremities: + edema Musculoskeletal: Extremities: no cyanosis and no clubbing Skin: normal turgor; no lesions Neurologic: Motor/Sensory: no tremor and no asterixis Psychiatric: Orientation: alert; + not oriented x 3 Results & Data ([facility]) Vital Signs (Past 12 Hours) Vital Signs Temp Pulse Pulse Resp BP Pulse Ox 04/19/21 08:07 36.6 C 72 16 117/74 94 04/19/21 07:19 72 04/19/21 04:25 36.5 C 77 18 147/96 H 97 04/19/21 02:21 80 04/19/21 00:13 36.9 C 80 18 158/97 H 98 Laboratory Results Laboratory Results - last 24 hr 04/18/21 04/18/21 04/18/21 12:02 16:44 20:35 WBC RBC Hgb Hct MCV MCH MCHC RDW Std Deviation RDW Coeff of Esa Plt Count MPV PT INR Sodium Potassium Chloride Carbon Dioxide Anion Gap BUN Creatinine Est Cr Clr Drug Dosing Est GFR ( Amer) Est GFR (Non-Af Amer) BUN/Creatinine Ratio Glucose POC Glucose 203 H 180 H 185 H Calcium Cortisol AM Sample Specimen Hemolysis 04/19/21 04/19/21 04/19/21 07:12 07:12 07:20 WBC 12.16 H RBC 3.25 L Hgb 9.5 L Hct 30.0 L MCV 92.3 MCH 29.2 MCHC 31.7 L RDW Std Deviation 61.4 H RDW Coeff of Esa 18.4 H Plt Count 427 H MPV 9.8 PT INR Sodium 118 L* Potassium 6.2 H* Chloride 86 L Carbon Dioxide 18 L Anion Gap 14.0 H BUN 97 H Creatinine 4.73 H* D Est Cr Clr Drug Dosing 14.8 Est GFR ( Amer) 11.0 Est GFR (Non-Af Amer) 9.5 BUN/Creatinine Ratio 20.5 H Glucose 228 H POC Glucose Calcium 9.4 Cortisol AM Sample 25.75 H Specimen Hemolysis 04/19/21 04/19/21 07:41 08:01 WBC RBC Hgb Hct MCV MCH MCHC RDW Std Deviation RDW Coeff of Esa Plt Count MPV PT 12.6 H INR 1.3 H Sodium Potassium Chloride Carbon Dioxide Anion Gap BUN Creatinine Est Cr Clr Drug Dosing Est GFR ( Amer) Est GFR (Non-Af Amer) BUN/Creatinine Ratio Glucose POC Glucose 249 H Calcium Cortisol AM Sample Specimen Hemolysis PG Care Time/CCT Total # of Minutes Spent Total Time Spent with Patient: Total time spent is greater than 50% in coordination of care (as documented) at patient's floor/unit and/or counseling patient: Coding Level of Care Code 24381 Subseq Hosp Care Lvl 3 Diagnoses ESRD (end stage renal disease) on dialysis N18.6; Z99.2 Pleural effusion J90 Chronic anemia D64.9
[2021-04-19] MEDS ORDERED: EPOETIN ALFA 10,000 UNITS/ML VIAL IV SCH (11:00)
--- NOTE | 2021-04-19 11:12 | Hospitalist Progress Note ---
Date of Service April 19, 2021 Assessment & Plan (1) Pleural effusion: Plan: Zahida Garay is a 60 year old female with PMHx ESRD on dialysis, diastolic CHF, COPD, DM2, who presents with chief complaint of worsening shortness of breath. Acute on chronic HFpEF with bilateral pleural effusions - In acute exacerbation, BNP >35k - Minimal urine output - fluid restrict 1800 mL daily - Patient continues to have significant SOB - Followed by nephrology; no longer on daily ultrafiltration but ultimately has not lost much weight despite over 20L removed overall - appears that her nutritional status/decreased albumin is causing fluid to repeatedly extravasate -Pulmonology has performed thoracentesis once--so far, due to patient preference and likely recurrence of effusion, no plans to repeat - Restarted Eliquis -Spoke with daughter, Elsa Jacome ([phone]), who would like to bring her to a facility in [place] * provided contact information of living facility near her home in [place] ([facility] in [place], [place]) and info on dialysis facility near home. * discussed potential plan to discharge her after dialysis, with the daughter transferring her to facility in [place] * passed on information to Alize in case management to determine eligibility and availability * will follow for update. No updates today. Malnutrition - Albumin low in the low 2's - Likely major contributor to her continued fluid buildup despite daily dialysis with total ~20L removed Suspect UTI -CT ab/pelvis with findings suggestive of cystitis, UA with epithelial cells concerning for contamination. -Difficult to correlate symptoms due to patients awareness and lack of urination -Will treat with CTX 1g daily [id number]--[id number] treatment -will consider resolved unless suspicion arises again Pneumonia - MRSA nares positive - On contact precautions - Treated with vancomycin x 5 days -- finished treatment ESRD on Dialysis -Nephrology following -Continue Phoslo -Nephrocaps QD Paroxysmal AFib -Restarted Eliquis -Toprol 50mg BID Hypertension -Holding hydralazine -Continuing Metoprolol -Restarted ASA 04/16 COPD -On Mucinex, Anoro Ellipta, Arnuity Ellipta Bipolar disorder -Home ziprasidone on hold -Continue home Trazodone FENGI: Carb consistent, Dialysis, fluid restriction to 1500mL, easy to chew Dispo: Med/Surg with Tele DVT ppx: On Eliquis CODE: FULL (2) Diastolic CHF, acute on chronic: (3) ESRD (end stage renal disease) on dialysis: (4) Pneumonia: (5) SOB (shortness of breath): (6) Polypharmacy: (7) Elevated WBC count: Admission and Anticipated Discharge Date Admission Date: April 06, 2021 Supervising Physician Co-Signing Physician Notes I personally examined the patient and verified all senior points of history and exam, discussed case, and agree with decision making with Dr Robert No nuchal's. Still awaiting SNF. Vitals noted, in general she is awake and alert resting comfortably no distress. HEENT normocephalic atraumatic mucous membranes moist. Breathing unlabored, no accessory muscle use good effort. She does show lower extremity edema 1. parapneumonic effusion. Did not really clinically improved with extra dialysis. Could consider thoracentesis with pleurodesis, but respiratory status relatively stable, and it seems patient is fairly reticent for procedures if not truly dire situation. 2. leukocytosis. Improving. No signs or symptoms of ongoing acute infection at this time. 3. pneumonia. Completed course of antibiotics 4. Cystitis. Seen on CT. Difficult to know whether she is having symptoms as she is anuric. Completed a 3 day course of ceftriaxone. 5. acute on chronic HFpEF. Intravascularly appears to be somewhere between euv olemic and slightly dry 6. pAF. Continue metoprolol. Restarted Eliquis and ASA as she is not inclined to pursue another thoracentesis. 7. ESRD on HD (T//Sun). Continue dialysis per nephrology. Appreciate recommendations. 8. HTN. Follow on current regimen Dispo: For SNF - case management working on options/planning Subjective Asleep in bed. No complaints or concerns today. Is aware of plan to get her discharged with daughter to go to new facility in [place]. Review of Systems Constitutional: as per Subjective / HPI Physical Exam Constitutional: + ill appearing, + physical limitations, comfortable and + edematous Eyes: PERRL, conjunctivae normal, anicteric sclerae Respiratory: able to speak in complete sentences Auscultation: + diminished lung sounds (at the lung base bilaterally) and + crackles Cardiovascular: Heart Sounds: + murmur (best heard at LUSB) Extremities: + edema (2+ to the hip on the left) Gastrointestinal (Abdomen): Inspection/Auscultation: normal bowel sounds Musculoskeletal: Extremities: + amputation noted (on the right below the knee; of the left great toe) Psychiatric: Orientation: oriented to person, oriented to place and cooperative Results & Data Results & Data ([facility]) Vital Signs (Past 12 Hours) Vital Signs Temp Pulse Pulse Pulse Resp BP BP 04/19/21 10:40 73 128/79 04/19/21 10:20 71 121/71 04/19/21 10:00 70 128/78 04/19/21 09:40 69 120/76 04/19/21 09:20 69 126/80 04/19/21 09:08 68 136/81 04/19/21 09:02 37.3 C 70 04/19/21 08:07 36.6 C 72 16 117/74 04/19/21 07:19 72 04/19/21 04:25 36.5 C 77 18 147/96 H 04/19/21 02:21 80 04/19/21 00:13 36.9 C 80 18 158/97 H Pulse Ox 04/19/21 10:40 04/19/21 10:20 04/19/21 10:00 04/19/21 09:40 04/19/21 09:20 04/19/21 09:08 04/19/21 09:02 04/19/21 08:07 94 04/19/21 07:19 04/19/21 04:25 97 04/19/21 02:21 04/19/21 00:13 98 Resident Activity Tracking Resident Involvement: Resident Care Provided Care Provided: Adult Hospital Medicine
[2021-04-19] MEDS: guaiFENesin 600 MG TABCR PO SCH ×2 (11:37→21:03)
[2021-04-19] MEDS: METOPROLOL SUCC 50MG EXT REL TAB PO SCH ×2 (13:56→21:03)
--- NOTE | 2021-04-19 16:30 | Electrocardiogram Report ---
Test Reason : Blood Pressure : / mmHG Vent. Rate : 069 BPM Atrial Rate : 069 BPM P-R Int : 194 ms QRS Dur : 078 ms QT Int : 404 ms P-R-T Axes : 036 022 075 degrees QTc Int : 432 ms Normal sinus rhythm Low voltage QRS Borderline ECG When compared with ECG of 13-APR-2021 02:33, No significant change was found Confirmed by Enio Bledsoe ([id number]) on 04/19/2021 4:29:37 PM Referred By: Omega Umaña Confirmed By:Enio Bledsoe
[2021-04-19] MEDS: cefTRIAXone SODIUM 2,000 MG in DEXTROSE 5% 50 ML IV SCH (17:05)
--- NOTE | 2021-04-19 19:11 | Billing Data ---
Date of Service April 19, 2021 Coding Level of Care Code 53302 Subseq Hosp Care Lvl 1
[2021-04-19] MEDS: traZODone HCL 50 MG TAB PO SCH (21:03)
[2021-04-19] MEDS: LIDOCAINE 5% 1 PATCH TD SCH (21:04)
[2021-04-19] MEDS: clonazePAM 0.5 MG TAB PO PRN (21:04)
[2021-04-19 21:28] LABS: Hematocrit (blood only) 27.8 % (37-47); Hemoglobin 8.7 g/dL (12.0-16.0)
[2021-04-20 06:56] LABS: Hematocrit (blood only) 27.4 % (37-47); Hemoglobin 8.4 g/dL (12.0-16.0); Mean Corpuscular Hemoglobin 29.4 pg (25-34); Mean Corpuscular Hgb Conc 30.7 g/dL (32-36); Mean Corpuscular Volume 95.8 fL (80-100); Mean Platelet Volume 9.4 fL (7.4-10.4); Platelet Count 416 K/uL (130-400); RDW Coefficient of Variation 18.7 % (11.5-14.5); RDW Standard Deviation 64.8 fL (36.4-46.3); Red Blood Count 2.86 M/uL (4.2-5.4); White Blood Count 9.11 K/uL (4.8-10.8)
[2021-04-20 07:30] LABS: Albumin Level 2.2 gm/dl (3.4-5.0); BUN Creatinine Ratio 19.1 (10-20); Calcium 8.7 mg/dl (8.5-10.1); Creatinine Clr Calc Pharmacy 21.9 ml/min; Est GFR (African American) 19.6 ml/min; Est GFR (Non-African American) 16.9 ml/min; Potassium 4.1 mmol/L (3.5-5.1)
[2021-04-20 07:40] LABS: Albumin Globulin Ratio 0.4 (0.9-2); Bilirubin,Total 0.5 mg/dl (0.2-1); Phosphorus 4.6 mg/dl (2.5-4.9); Total Protein 8.2 gm/dl (6.4-8.2)
[2021-04-20] MEDS ORDERED: SODIUM CHLORIDE 0.9% 1000ML 1,000 ML IV PRN (07:42)
[2021-04-20] MEDS: CALCIUM ACETATE 667 MG CAP/TAB PO SCH ×3 (08:19→16:41)
[2021-04-20] MEDS: PANTOprazole 40 MG TAB PO SCH (08:19)
[2021-04-20] MEDS: LACTULOSE SYRUP 20 GM/30 ML UDC PO SCH (08:19)
[2021-04-20] MEDS: guaiFENesin 600 MG TABCR PO SCH (08:19)
[2021-04-20] MEDS: METOPROLOL SUCC 50MG EXT REL TAB PO SCH (08:19)
[2021-04-20] MEDS: NEPHROCAPS PO SCH (08:19)
[2021-04-20] MEDS: ASPIRIN 81 MG ECTAB PO SCH (08:19)
[2021-04-20] MEDS: APIXABAN 2.5 MG TAB PO SCH (08:20)
[2021-04-20] MEDS: ACETAMINOPHEN 325 MG TAB PO SCH ×3 (08:20→16:37)
[2021-04-20] MEDS: FLUTICASONE FUROATE 100MCG 14 PUFFS/INHALER INH SCH (08:20)
[2021-04-20] MEDS: DICLOFENAC SOD 1% GEL 100 GM TUBE EXT SCH ×3 (08:20→16:37)
[2021-04-20] MEDS: INSULIN GLARGINE SOLOSTAR 100 UNITS/ML 3 ML PEN SC SCH (08:22)
[2021-04-20] MEDS: INSULIN ASPART 100 UNITS/ML 3 ML PEN SC SCH ×3 (08:22→16:39)
[2021-04-20] MEDS: POLYETHYLENE (MIRALAX) 17 GM PACK PO SCH (08:23)
[2021-04-20] MEDS: UMECLIDINIUM/VILANTEROL 62.5/25MCG 7 PUFFS/INHALER INH SCH (08:25)
--- NOTE | 2021-04-20 09:21 | Hospitalist Progress Note ---
Date of Service April 20, 2021 Assessment & Plan (1) Pleural effusion: Plan: Zahida Garay is a 60 year old female with PMHx ESRD on dialysis, diastolic CHF, COPD, DM2, who presents with chief complaint of worsening shortness of breath. Acute on chronic HFpEF with bilateral pleural effusions - In acute exacerbation, BNP >35k - Minimal urine output - fluid restrict 1800 mL daily - Patient continues to have significant SOB - Followed by nephrology; no longer on daily ultrafiltration but ultimately has not lost much weight despite over 20L removed overall last week - appears that her nutritional status/decreased albumin is causing fluid to repeatedly extravasate -Pulmonology has performed thoracentesis once--so far, due to patient preference and likely recurrence of effusion, no plans to repeat - Restarted Eliquis -K of 6.2 yesterday. EKG ordered showed no significant arrhythmic or ischemic changes. * electrolyte imbalance likely due to dialysis, which she received yesterday (3L removed yesterday) -Spoke with daughter, Elsa Jacome ([phone]), who would like to bring her to a facility in [place] * provided contact information of living facility near her home in [place] ([facility] in [place], [place]) and info on dialysis facility near home. * discussed potential plan to discharge her after dialysis, with the daughter transferring her to facility in [place] * passed on information to Alize in case management to determine eligibility and availability. * will follow for update. Case management reached out twice so far to facility provided by daughter (see above): no response, LVM. Awaiting response * spoke with daughter today (provided additional facility today to try for placement: [facility] [phone]). She plans to update with additional facilities * daughter mentioned trying to get her to sign her power of commercial litigation attorney rights to her so she could transfer her bank balance to a bank closer to home ahead of the move; she provided email address ([email or web address]) to send form to if one does exist Malnutrition - Albumin low in the low 2's - Likely major contributor to her continued fluid buildup despite daily dialysis with total ~20L removed Suspect UTI -CT ab/pelvis with findings suggestive of cystitis, UA with epithelial cells concerning for contamination. -Difficult to correlate symptoms due to patients awareness and lack of urination -Will treat with CTX 1g daily s9d--kgfpkuxa treatment -will consider resolved unless suspicion arises again Pneumonia - MRSA nares positive - On contact precautions - Treated with vancomycin x 5 days -- finished treatment ESRD on Dialysis -Nephrology following -Continue Phoslo -Nephrocaps QD Paroxysmal AFib -Restarted Eliquis -Toprol 50mg BID Hypertension -Holding hydralazine -Continuing Metoprolol -Restarted ASA 04/16 COPD -On Mucinex, Anoro Ellipta, Arnuity Ellipta Bipolar disorder -Home ziprasidone on hold -Continue home Trazodone FENGI: Carb consistent, Dialysis, fluid restriction to 1500mL, easy to chew Dispo: Med/Surg with Tele DVT ppx: On Eliquis CODE: FULL (2) Diastolic CHF, acute on chronic: (3) ESRD (end stage renal disease) on dialysis: (4) Pneumonia: (5) SOB (shortness of breath): (6) Polypharmacy: (7) Elevated WBC count: Admission and Anticipated Discharge Date Admission Date: April 06, 2021 Subjective Laying bed comfortably, half asleep. She reports no complaints Review of Systems Constitutional: as per Subjective / HPI Physical Exam Constitutional: WD/WN, vitals as above Respiratory: normal respiratory effort and + cough Cardiovascular: Heart Sounds: + murmur Gastrointestinal (Abdomen): normal bowel sounds, soft, nontender, no hepatosplenomegaly Results & Data Results & Data ([facility]) Vital Signs (Past 12 Hours) Vital Signs Temp Pulse Pulse Resp BP Pulse Ox 04/20/21 07:34 36.4 C L 74 18 137/89 100 04/20/21 07:00 75 04/20/21 03:25 81 18 134/92 99 04/19/21 23:29 82 04/19/21 23:00 36.7 C 82 18 138/83 97
--- NOTE | 2021-04-20 09:37 | Nephrology Progress Note ---
Date of Service April 20, 2021 Assessment & Plan (1) ESRD (end stage renal disease) on dialysis: Plan: ESRD attributed to DKD and history of ATN. HD TTS as outpatient. Completed treatment yesterday without complications. Orders for additional dialysis for clearance and UF today entered into EMR and reviewed with dialysis nurse. Continue low K diet and free water restriction. TDC functioning well. Unfortunately given ESRD and medical comorbidities prognosis is poor. (2) Pleural effusion: Plan: CXR and CT abdomen and pelvis reviewed. Parapneumonic component. (3) Chronic anemia: Plan: Stable. Epogen 26718 units provided with HD last week. Additional 06209 units provided yesterday. Plan: I discussed the plan of care with Dr. Simpson this AM. Admission and Anticipated Discharge Date Admission Date: April 06, 2021 Subjective No acute events overnight. Resting comfortably in bed this AM. Tolerated HD yesterday without complications. Review of Systems Review of Systems: All systems reviewed & are unremarkable except as noted in HPI & below Physical Exam Constitutional: well developed and + frail appearing; no acute distress Eyes: no scleral abnormality and no corneal abnormality ENMT: Mouth: no oral mucosal abnormality and oral mucous membranes not dry Neck: normal visual inspection and trachea midline Respiratory: normal respiratory effort Auscultation: lungs clear to auscultation bilaterally and + diminished lung sounds Cardiovascular: Rate/Rhythm: regular rate Heart Sounds: normal S1 and tony l S2 Extremities: + edema Musculoskeletal: Extremities: no cyanosis and no clubbing Skin: normal turgor; no lesions Neurologic: Motor/Sensory: no tremor and no asterixis Psychiatric: Orientation: alert; + not oriented x 3 Results & Data ([facility]) Vital Signs (Past 12 Hours) Vital Signs Temp Pulse Pulse Resp BP Pulse Ox 04/20/21 07:34 36.4 C L 74 18 137/89 100 04/20/21 07:00 75 04/20/21 03:25 81 18 134/92 99 04/19/21 23:29 82 04/19/21 23:00 36.7 C 82 18 138/83 97 Laboratory Results Laboratory Results - last 24 hr 04/19/21 04/19/21 04/19/21 13:27 16:25 20:17 WBC RBC Hgb Hct MCV MCH MCHC RDW Std Deviation RDW Coeff of Esa Plt Count MPV Sodium Potassium Chloride Carbon Dioxide Anion Gap BUN Creatinine Est Cr Clr Drug Dosing Est GFR ( Amer) Est GFR (Non-Af Amer) BUN/Creatinine Ratio Glucose POC Glucose 125 H 179 H 275 H Calcium Phosphorus Total Bilirubin AST ALT Alkaline Phosphatase Total Protein Albumin Globulin Albumin/Globulin Ratio 04/19/21 04/20/21 04/20/21 20:51 06:10 06:10 WBC 9.11 RBC 2.86 L Hgb 8.7 L 8.4 L Hct 27.8 L 27.4 L MCV 95.8 MCH 29.4 MCHC 30.7 L RDW Std Deviation 64.8 H RDW Coeff of Esa 18.7 H Plt Count 416 H MPV 9.4 Sodium 129 L D Potassium 4.1 D Chloride 97 L Carbon Dioxide 23 Anion Gap 9.0 BUN 56 H Creatinine 2.93 H D Est Cr Clr Drug Dosing 21.9 Est GFR ( Amer) 19.6 Est GFR (Non-Af Amer) 16.9 BUN/Creatinine Ratio 19.1 Glucose 221 H POC Glucose Calcium 8.7 Phosphorus 4.6 Total Bilirubin 0.5 AST 11 L ALT 12 Alkaline Phosphatase 155 H Total Protein 8.2 Albumin 2.2 L Globulin 6.0 H Albumin/Globulin Ratio 0.4 L 04/20/21 07:28 WBC RBC Hgb Hct MCV MCH MCHC RDW Std Deviation RDW Coeff of Esa Plt Count MPV Sodium Potassium Chloride Carbon Dioxide Anion Gap BUN Creatinine Est Cr Clr Drug Dosing Est GFR ( Amer) Est GFR (Non-Af Amer) BUN/Creatinine Ratio Glucose POC Glucose 207 H Calcium Phosphorus Total Bilirubin AST ALT Alkaline Phosphatase Total Protein Albumin Globulin Albumin/Globulin Ratio PG Care Time/CCT Total # of Minutes Spent Total Time Spent with Patient: Total time spent is greater than 50% in coordination of care (as documented) at patient's floor/unit and/or counseling patient: Coding Level of Care Code 12698 Subseq Hosp Care Lvl 3 Diagnoses ESRD (end stage renal disease) on dialysis N18.6; Z99.2 Pleural effusion J90 Chronic anemia D64.9
--- NOTE | 2021-04-20 11:54 | Discharge Summary ---
Date of Service April 20, 2021 Admission HPI Per Admitting Provider Patient is a 60 year old female with PMHx ESRD on dialysis, diastolic CHF, COPD, DM2, who presents with chief complaint of worsening shortness of breath. Patient is unfortunately a very poor historian. Patient notes that she does get her dialysis on T, Th, Sat and that she typically feels better afterwards, but has been having worsening shortness of breath. She saw her line dancer on 04/04/21 for lethargy and at that time was asked to go to the ED for evaluation, however, the patient felt that her lethargy was due to her Klonopin use rather than her breathing. Patient notes that her primary symptoms at this time do include shortness of breath, worse with laying flat and with exertion. She denies any chest pain, chest pressure, abdominal pain, dysuria (notes very minimal urine), headache, visual changes, fever, chills. Med Hx: ESRD on dialysis, CHF, COPD, DM2 Soc Hx: Quit smoking in June, but 2 ppd since age of 16 prior. Admission Exam Per Admitting Provider Constitutional: well developed, well nourished and + disheveled; not in distress Eyes: PERRL, conjunctivae normal, anicteric sclerae normal visual shepherd by confrontation ENMT: external ear and nose normal, oropharynx normal Neck: trachea midline, no thyromegaly Respiratory: normal respiratory effort (on 3L NC ); does not use accessory muscles Auscultation: + diminished lung sounds (on R lower lobe) and + rales (b/l ) Cardiovascular: Rate/Rhythm: regular rate and regular rhythm Heart Sounds: no murmur Gastrointestinal (Abdomen): normal bowel sounds, soft, nontender, no hepatosplenomegaly Musculoskeletal: R BTK amputation Skin: no rashes, warm and dry Neurologic: PERRL, EOMI, accommodation nl, no face palsy, no dysarthria Psychiatric: Orientation: alert, oriented to person and cooperative Principal Diagnosis Pneumonia Discharge Exam Constitutional + ill appearing, + physical limitations, comfortable and + edematous Eyes PERRL, conjunctivae normal, anicteric sclerae Respiratory able to speak in complete sentences Auscultation: + diminished lung sounds (at the lung base bilaterally) and + crackles Cardiovascular Heart Sounds: + murmur Extremities: + edema (2+ to the hip on the left) Gastrointestinal (Abdomen) Inspection/Auscultation: normal bowel sounds Percussion/Palpation: + abdomen tender Musculoskeletal Extremities: + amputation noted (on the right below the knee; of the left great toe) Psychiatric Orientation: oriented to person, oriented to place and cooperative Discharge Data Allergies Allergy/AdvReac Type Severity Reaction Status Date / Time shellfish derived Allergy Unknown Unknown Verified 04/06/21 16:15 Consultations 04/06/21 21:41 ED Decision to Admit Stat 04/06/21 23:37 Consult Nephrology Routine Consult Pulmonology Routine 04/12/21 12:36 Consult Palliative Care Routine Ordered Studies 04/06/21 14:27 CT abd pelvis wo con Stat 04/06/21 14:43 CT chest diagnostic wo con Stat 04/07/21 07:57 US point of care ultrasound Urgent 04/08/21 13:19 US point of care ultrasound Urgent 04/13/21 02:46 CT abd pelvis wo con Urgent 04/14/21 07:47 US point of care ultrasound Routine Hospital Course (1) Pleural effusion: Zahida Garay is a 60 year old female with PMHx ESRD on dialysis, diastolic CHF, COPD, DM2, who presents with chief complaint of worsening shortness of breath. Acute on chronic HFpEF with bilateral pleural effusions - In acute exacerbation, BNP >35k - Minimal urine output - fluid restrict 1800 mL daily - Patient continues to have significant SOB - Followed by nephrology; no longer on daily ultrafiltration but ultimately has not lost much weight despite over 20L removed overall last week - appears that her nutritional status/decreased albumin is causing fluid to repeatedly extravasate -Pulmonology has performed thoracentesis once--so far, due to patient preference and likely recurrence of effusion, no plans to repeat - Restarted Eliquis -K of 6.2 yesterday 04/19. EKG ordered showed no significant arrhythmic or ischemic changes. * electrolyte imbalance likely due to dialysis, which she received yesterday (3L removed in dialysis yesterday) -Spoke with daughter, Elsa Jacome ([phone]), who would like to bring her to a facility in [place] * provided contact information of living facility near her home in [place] ([facility] in [place], [place]) and info on dialysis facility near home. * discussed potential plan to discharge her after dialysis, with the daughter transferring her to facility in [place] * passed on information to [facility] in case management to determine eligibility and availability. * will follow for update. Case management reached out twice so far to facility provided by daughter (see above): no response, LVM. Awaiting response * spoke with daughter today (provided additional facility today to try for placement: [facility] [phone]). She plans to update with additional facilities * daughter mentioned trying to get Zahida to sign over her power of [place] attorney rights to her so she could transfer her bank balance to a bank closer to [place] ahead of the move; she provided email address ([email or web address]) to send form to if one does exist. Case management made it clear she'd have to do that with an actual chef passenger vessel since the hospital only handles medical power of united states attorney issues, not financial. * Case management recommends she return to [facility] as soon as she is medically able, which she is at this time, and coordinate facility transfer from there. Malnutrition - Albumin low in the low 2's - Likely major contributor to her continued fluid buildup despite daily dialysis with total ~20L removed last week alone. Suspect UTI -CT ab/pelvis with findings suggestive of cystitis, UA with epithelial cells concerning for contamination. -Difficult to correlate symptoms due to patients awareness and lack of urination -Treated with CTX 1g daily [id number] treatment -will consider resolved unless suspicion arises again Pneumonia - MRSA nares positive - On contact precautions - Treated with vancomycin x 5 days -- finished treatment ESRD on Dialysis -Nephrology following -Continue Phoslo -Nephrocaps QD Paroxysmal AFib -Restarted Eliquis -Toprol 50mg BID Hypertension -Holding hydralazine -Continuing Metoprolol -Restarted ASA 04/16 COPD -On Mucinex, Anoro Ellipta, Arnuity Ellipta Bipolar disorder -Home ziprasidone on hold -Continue home Trazodone FENGI: Carb consistent, Dialysis, fluid restriction to 1500mL, easy to chew Dispo: Med/Surg with Tele DVT ppx: On Eliquis CODE: FULL (2) Diastolic CHF, acute on chronic: (3) ESRD (end stage renal disease) on dialysis: (4) Pneumonia: (5) SOB (shortness of breath): (6) Polypharmacy: (7) Elevated WBC count: Total Time Total Time Spent Total Time Spent (In Minutes): <30 Discharge Plan Discharge Items Patient Disposition: Transfer Half-Way Fac Reason For Visit: R PLEURAL EFFUSION, PNA Discharge Diagnosis: Pneumonia Activity: Per Instructions section Non-emergency contact: Primary Care Provider Call non-emergency contact if: your symptoms worsen, you have a fever and your wound pain has increased Follow-up/Referrals: Omega Umaña [Primary Care Provider] - Diet: Regular Addtl Attending Provider Instructions: You were admitted to the hospital for pneumonia. You were treated with antibiotics and dialysis. A discharge summary will be sent to your care facility to ensure continuity of care. Your nursing facility's provider can review it at that time. CONTACT YOUR PRIMARY CARE PROVIDER if you experience any of the following: Shortness of breath or difficulty breathing Fever, chills, green, yellow, or bloody. Difficulty following your treatment plan, or difficulty taking medications CALL 911 OR GO TO THE EMERGENCY DEPARTMENT if you experience any of the following: Sudden, severe abdominal pain or nausea/vomiting Severe chest pain, or chest pain that radiates (moves) to your jaw or arm Sudden, severe shortness of breath or difficulty breathing Thank you for allowing us to participate in your care. Pending Studies at Discharge: No Stand-Alone Forms: My [employer] Skilled Items Patient informed of condition?: Yes DNR: No Discharge Level of Care: Skilled Communicable Disease: No Discharge Prognosis: Stable Lines: None Urinary Catheter: No Medications and DC Order Prescriptions: Continued cholecalciferol (vitamin D3) 50 mcg (2,000 unit) capsule 50 mcg PO QAM RF: 0 lidocaine 5 % adhesive patch,medicated 1 patch topical DAILY RF: 0 oxycodone 5 mg tablet 5 mg PO Q6H PRN (Reason: Pain) RF: 0 sodium bicarbonate 650 mg tablet 650 mg PO WM RF: 0 ziprasidone HCl 20 mg capsule 20 mg PO BID RF: 0 omeprazole 20 mg capsule,delayed release(DR/EC) 20 mg PO DAILY RF: 0 metoprolol succinate 50 mg Tablet Extended Release 24 Hr 50 mg PO BID RF: 0 aspirin [Aspirin Low Dose] 81 mg Tablet,Delayed Release (Dr/Ec) 81 mg PO QAM RF: 0 Trelegy Ellipta 100-62.5-25 mcg blister with device 1 inh INHALATION DAILY RF: 0 acetaminophen 325 mg Tablet 650 mg PO Q6H MDD 3 GMS APAP/24 HOURS PRN (Reason: Fever Or Pain) RF: 0 bisacodyl [Dulcolax (bisacodyl)] 10 mg Suppository 10 mg MA DIRECTED PRN (Reason: Constipation) RF: 0 Fleet Enema 19-7 gram/118 mL Enema 118 ml MA DIRECTED PRN (Reason: Constipation) RF: 0 lactulose 20 gram/30 mL Solution 30 ml PO DAILY Qty: 120 RF: 0 trazodone 50 mg tablet 50 mg PO HS RF: 0 potassium chloride [Klor-Con M10] 10 mEq tablet,ER particles/crystals 10 meq PO Q OTHER DAY RF: 0 bumetanide 1 mg Tablet 1 mg PO .TODAY RF: 0 polyethylene glycol 3350 17 gram/dose Powder 17 g PO BID RF: 0 nicotine [Nicoderm CQ] 7 mg/24 hr Patch 24 Hour 1 patch TRANSDERMAL UD RF: 0 insulin aspart U-100 [Novolog Flexpen U-100 Insulin] 100 unit/mL (3 mL) Insulin Pen See Rx Instructions .ROUTE .COMPLEX Qty: 15 RF: 0 clonazepam 0.5 mg tablet 0.5 mg PO BID RF: 0 dicyclomine 20 mg Tablet 20 mg PO TID RF: 0 calcium acetate(phosphat bind) 667 mg Capsule 667 mg PO TIDM RF: 0 Eliquis 2.5 mg tablet 2.5 mg PO BID RF: 0 albuterol sulfate [Proventil HFA] 90 mcg/actuation Hfa Aerosol Inhaler 2 puff INHALATION Q6H PRN (Reason: Shortness Of Breath Or Wheezing) RF: 0 guaifenesin [Mucinex] 600 mg Tablet Extended Release 12hr 600 mg PO BID RF: 0 Discontinued hydralazine 10 mg Tablet 10 mg PO TID Qty: 30 RF: 0 Discharge Orders: Discharge Order (Routine); Ordered 04/20/21 Ordered By: Diandra Robert Admission Data Admit Date/Time: 04/06/21 22:11 Attending Provider: Jatin Simpson Admit Provider: Jason Arauz Primary Care Provider: Omega Umaña Other Providers: Ronald Rodriguez ; Lambert Duarte ; Benita Calles ; Glory Pringle Other Interventions: Discharge Summary Assessment (RN) Last Done: 04/20/21 15:01 Supervising Physician Co-Signing Physician Notes I personally examined the patient and verified all senior points of history and exam, discussed case, and agree with decision making with Dr Robert Resting comfortably Vitals noted, in general she is awake and alert resting comfortably no distress. HEENT normocephalic atraumatic mucous membranes moist. Breathing unlabored, no accessory muscle use good effort. 1. parapneumonic effusion. Did not really clinically improved with extra dialysis. Could consider thoracentesis with pleurodesis, but respiratory status relatively stable, and it seems patient is fairly reticent for procedures if not truly dire situation. 2. leukocytosis. Resolved 3. pneumonia. Completed course of antibiotics 4. Cystitis. Seen on CT. Difficult to know whether she is having symptoms as she is anuric. Completed a 3 day course of ceftriaxone. 5. acute on chronic HFpEF. Seems overall compensated. Effusion likely recurring due to ESRD and hypoalbuminemia not volume overload 6. pAF. Continue metoprolol. Rate controlled, anticoagulated 7. ESRD on HD (//Sun). Continue dialysis per nephrology. 8. HTN. Follow on current regimen Dispo: For SNF, eventually she is going to try to move to a skilled facility in [place] closer to her daughter.
[2021-04-20] MEDS: oxyCODONE HCL IR 5 MG TAB (IMMEDIATE RELEASE) PO PRN (13:54)
--- NOTE | 2021-04-20 17:53 | Billing Data ---
Date of Service April 20, 2021 Coding Level of Care Code D/C DAY MANAGEMENT <30 MINS
--- NOTE | 2021-04-28 08:16 | Coding Query ---
CODING QUERY To promote full compliance with coding requirements relating to patient care, provider participation is requested in all cases of forest products teacher uncertainty. Please assist us with the question(s) below: Coding Question(s): Patient admitted with SOB- Pneumonia,parapneumonic effusion, ACDHF, Nares positive for MRSA,Pneumonia treated with 5 days of Vancomycin. Thoracentesis performed during this IP stay. 04/12 progress note mentionns SOB due to pleural effusion and pneumonia. Please document, if known or suspected, the etiology of the (parapneumonic) pleura effusion. Thanks for your help! Jordin Lima [facility] Physician's Response(s): bacterial of some sort, but beyond that, would not be able to honestly clarify further. thanks Principal Diagnosis: "that condition established after study, to be chiefly responsible for occasioning the admission of the patient to the hospital for care." Co-Existing Principal Diagnosis: "when two or more diagnoses equally meet the criteria for principal diagnosis as determined by the circumstances of admission, diagnostic work up, and/or therapy provided, and the Alphabetic Index, Tabular List, or another coding guideline does not provide sequencing direction, any one of the diagnoses may be sequenced first." "When the physician has documented what appears to be a current diagnosis in the body of the record, but has not included the diagnosis in the final diagnostic statement, the physician should be asked whether the diagnosis should be added." (Source Coding [facility] 2 QTR90. p3-4) DESHAUN
== END 2021-04-20 17:00 | DRG 291 ==
LOC: ED 12:05 → 2N 22:11 → SUATTDRO 22:11 → 2N 22:43